=== PATIENT | female | born 1950 | race Caucasian/White ===

== ENCOUNTER 2016-07-04 13:03 | Emergency (ER) | payer OTHER ==
[2016-07-04 13:15] VITALS: TEMP 98.7; BMI 37.0
--- NOTE | 2016-07-04 15:36 | PDOC ---
History of Present Illness <Baron Miles - Last Filed: 07/04/16 18:42> - History of Present Illness Initial Comments: 07/04/16 16:21 The patient is a 65 year old female with a past medical hx of anemia, asthma, cervical cancer with lung mets, CAD, COPD, IDDM, Left DVT 6 years ago who presents to the ED complaining of back pain and rib pain for 1 week. The patient reports she has pain with twisting motions. She reports her pain is progressively worsening. The patient is also complaining of a productive cough. The patient denies any chest pain, SOB, fever, chills The patient denies any nausea, vomiting, diarrhea, constipation <Janina Benjamin - Last Filed: 07/04/16 18:59> - General Chief Complaint: Lightheaded Stated Complaint: SOB, DIZZINESS Time Seen by Provider: 07/04/16 15:35 Past History - Past Medical History Anemia: Yes Asthma: Yes Cancer: Yes (cervical, lung ca, S/P CHEMO, RADIATION) Cardiac Disorders: Yes (CAD.) CVA: No COPD: Yes CHF: No Dementia: No Diabetes: Yes GI Disorders: No Disorders: No HTN: Yes Hypercholesterolemia: Yes Liver Disease: No Suicide Attempt (Hx): No Seizures: No Thyroid Disease: Yes - Surgical History Abdominal Surgery: Yes (UMBILICAL hernia repair) Appendectomy: No Cardiac Surgery: Yes (LLE Bypass) Cholecystectomy: Yes Lung Surgery: No Neurologic Surgery: No Orthopedic Surgery: Yes (amputation rt 3rd and 4th toes) - Family Disease History Family Disease History: Diabetes: Mother, Heart Disease: Father - Immunization History Td Vaccination: Yes TDAP Vaccination: Yes Immunization Up to Date: Yes - Psycho/Social/Smoking Cessation Hx Anxiety: Yes Suicidal Ideation: No Smoking Status: No Smoking History: Never smoked Years of Tobacco Use: 0 Have you smoked in the past 12 months: No Number of Cigarettes Smoked Daily: 0 Cigars Per Day: 0 Hx Alcohol Use: No Drug/Substance Use Hx: No Substance Use Type: None Hx Substance Use Treatment: No <Baron Miles - Last Filed: 07/04/16 18:42> <Janina Benjamin - Last Filed: 07/04/16 18:59> - Past Medical History Allergies/Adverse Reactions: Allergies Allergy/AdvReac Type Severity Reaction Status Date / Time Penicillins Allergy Unknown Hives Verified 03/22/17 13:15 Home Medications: Ambulatory Orders Atorvastatin Calcium 10 mg PO HS 05/01/16 Cholecalciferol (Vitamin D3) [Vitamin D -] 50,000 unit PO WEEKLY 05/01/16 Clindamycin [Cleocin -] 300 mg PO TID 05/01/16 Enoxaparin Sodium 80 mg SQ BID 05/01/16 Exemestane [Aromasin -] 25 mg PO DAILY 05/01/16 Furosemide 20 mg PO DAILY 05/01/16 Insulin Glargine,Hum.rec.anlog [Lantus (10mL VIAL) -] 30 units SQ BID 05/01/16 Levothyroxine [Synthroid -] 100 mcg PO DAILY 05/01/16 Megestrol Acetate 40 mg PO DAILY 05/01/16 Melatonin 5 mg PO HS 05/01/16 Montelukast Na [Singulair -] 10 mg PO HS 05/01/16 Ondansetron [Zofran -] 4 mg PO BID PRN 05/01/16 Ranitidine HCl 300 mg PO DAILY 05/01/16 Sertraline HCl 50 mg PO DAILY 05/01/16 Oxycodone HCl PRN 05/02/16 Xanax PO TID 05/02/16 Clindamycin [Cleocin -] 300 mg PO Q6HPO #28 capsule 05/09/16 Oxycodone HCl [Roxicodone -] 10 mg PO Q6H PRN #0 tablet MDD 4 05/09/16 Prednisone [Deltasone -] 10 mg PO DAILY #10 tablet 05/09/16 Review of Systems - Review of Systems Able to Perform ROS?: Yes Comments:: 07/04/16 16:21 GENERAL/CONSTITUTIONAL: No fever or chills. No weakness. HEAD, EYES, EARS, NOSE AND THROAT: No change in vision. No ear pain or discharge. No sore throat. CARDIOVASCULAR: No chest pain or shortness of breath. RESPIRATORY: +Cough. No wheezing, or hemoptysis. GASTROINTESTINAL: No nausea, vomiting, diarrhea or constipation. GENITOURINARY: No dysuria, frequency, or change in urination. MUSCULOSKELETAL: +Back pain, rib pain. No joint or muscle swelling. No neck pain. SKIN: No rash NEUROLOGIC: No headache, vertigo, loss of consciousness, or change in strength/ sensation. ENDOCRINE: No increased thirst. No abnormal weight change. HEMATOLOGIC/LYMPHATIC: No anemia, easy bleeding, or history of blood clots. ALLERGIC/IMMUNOLOGIC: No hives or skin allergy. <Janina Benjamin - Last Filed: 07/04/16 18:59> *Physical Exam - Vital Signs Last Vital Signs Temp Pulse Resp BP Pulse Ox 98.7 F 89 20 141/69 98 07/04/16 13:11 07/04/16 13:11 07/04/16 13:11 07/04/16 13:11 07/04/16 13:11 <Baron Miles - Last Filed: 07/04/16 18:42> - Vital Signs Last Vital Signs Temp Pulse Resp BP Pulse Ox 98.7 F 89 20 141/69 98 07/04/16 13:11 07/04/16 13:11 07/04/16 13:11 07/04/16 13:11 07/04/16 13:11 - Physical Exam Comments: 07/04/16 16:22 GENERAL: Awake, alert, and fully oriented, in no acute distress HEAD: No signs of trauma EYES: PERRLA, EOMI, sclera anicteric, conjunctiva clear ENT: Auricles normal inspection, hearing grossly normal, nares patent, oropharynx clear without exudates. Moist mucosa NECK: Normal ROM, supple, no lymphadenopathy, JVD, or masses LUNGS: +Wheezing. No crackles HEART: Regular rate and rhythm, normal S1 and S2, no murmurs, rubs or gallops ABDOMEN: +Distended. Soft, nontender, normoactive bowel sounds. No guarding, no rebound. No masses EXTREMITIES:No cellulitis to the lower extremities. Normal range of motion, no edema. No clubbing or cyanosis. No cords, erythema, or tenderness MUSCULOSKELETAL: +Ttp to the left ribs, ttp to the lumbosacral spinal region NEUROLOGICAL: Cranial nerves II through XII grossly intact. Normal speech, normal gait SKIN: Warm, Dry, normal turgor, no rashes or lesions noted. <Janina Benjamin - Last Filed: 07/04/16 18:59> ED Treatment Course - LABORATORY CBC & Chemistry Diagram: 07/04/16 17:15 07/04/16 17:15 <Baron Miles - Last Filed: 07/04/16 18:42> - LABORATORY CBC & Chemistry Diagram: 07/04/16 17:15 07/04/16 17:15 <Janina Benjamin - Last Filed: 07/04/16 18:59> Medical Decision Making - Medical Decision Making 07/04/16 18:05 The patient is a 65 year old female with a past medical hx of anemia, asthma, cervical cancer with lung mets, CAD, COPD, IDDM, Left DVT 6 years ago who presents to the ED complaining of back pain and rib pain for 1 week. The plan is to order rib and lumbosacral X-RAY All tests were negative. Patient can be discharged. Discussed plan for discharge with patient who understands and agrees with the plan. All questions answered. <Janina Benjamin - Last Filed: 07/04/16 18:59> *DC/Admit/Observation/Transfer - Discharge Dispostion Admit: No - Attestations Physician Attestion: 07/04/16 15:36 I, Dr. Baron Miles, attest that this document has been prepared under my direction and personally reviewed by me in its entirety. I further attest, that it accurately reflects all work, treatment, procedures and medical decision -making performed by me. <Baron Miles - Last Filed: 07/04/16 18:42> - Attestations Scribe Attestion: 07/04/16 16:21 Documentation prepared by Janina Benjamin, acting as medical physics teacher for Baron Miles MD/. <Janina Benjamin - Last Filed: 07/04/16 18:59> Diagnosis at time of Disposition: Metastatic disease Chronic pain Qualifiers: Chronic pain type: due to neoplasm Qualified Code(s): G89.3 - Neoplasm related pain (acute) (chronic) - Discharge Dispostion Disposition: HOME Condition at time of disposition: Improved - Referrals Referrals: Zahida Bran MD [Primary Care Provider] - - Patient Instructions Printed Discharge Instructions: DI for Chronic Pain -- Adult Additional Instructions: Mrs Mendieta- All of your tests look good. Continue with all of your doctor appointments- take all of your medicines. Return to us if problems. Best- Dr. Baron Miles
[2016-07-04] MEDS ORDERED: LORazepam 1 MG TABLET PO ONE (16:22)
[2016-07-04] MEDS ORDERED: oxyCODONE HCL 5 MG TABLET PO ONE (16:22)
[2016-07-04] MEDS ORDERED: LORazepam 0.5 MG TABLET ONE (16:54)
[2016-07-04] MEDS ORDERED: oxyCODONE HCL 5 MG TABLET ONE (16:55)
[2016-07-04 17:27] LABS: MCH 25.9 pg (25.7-33.7); MEAN CELL VOLUME 78.3 fl (80-96); MEAN PLT VOLUME 9.1 fl (7.5-11.1); PLATELET COUNT 244 K/MM3 (134-434); RDW 16.8 % (11.6-15.6); WHITE BLOOD COUNT 11.6 K/mm3 (4.0-10.0)
[2016-07-04 17:42] LABS: URINE APPEARANCE CLEAR; URINE BILIRUBIN NEGATIVE (NEGATIVE); URINE BLOOD NEGATIVE (NEGATIVE); URINE COLOR STRAW; URINE GLUCOSE (UA) 3+ (NEGATIVE); URINE KETONE NEGATIVE (NEGATIVE); URINE LEUK ESTERASE NEGATIVE (NEGATIVE); URINE NITRITE NEGATIVE (NEGATIVE); URINE PROTEIN NEGATIVE (NEGATIVE); URINE UROBILINOGEN NEGATIVE E.U./dl (0.2-1.0)
[2016-07-04 17:43] LABS: INR 1.06 (0.82-1.09); PROTHROMBIN TIME (PATIENT) 11.7 SEC (9.98-11.88)
[2016-07-04 18:11] LABS: ALBUMIN 3.6 g/dl (3.4-5.0); BILIRUBIN,TOTAL 0.4 mg/dL (0.2-1.0); CALCIUM 9.4 mg/dL (8.5-10.1); CREATININE 1.1 mg/dL (0.55-1.02); TOT PROT 7.3 g/dl (6.4-8.2)
[2016-07-04 19:57] LABS: PLATELET ESTIMATE ADEQUATE (NORMAL)
[2016-07-04 19:58] LABS: METAMYELOCYTE 1 % (0-2)
[2016-07-04 21:13] VITALS: BP 139/80; PULSE 94
== END 2016-07-04 21:13 | disposition home or self-care (01) ==
LOC: JER 13:03
DX: G89.3 Neoplasm related pain (acute) (chronic) (principal); Z85.41 Personal history of malignant neoplasm of cervix uteri; Q24.5 Malformation of coronary vessels; I25.10 Atherosclerotic heart disease of native coronary artery without angina pectoris; E11.9 Type 2 diabetes mellitus without complications; Z86.718 Personal history of other venous thrombosis and embolism
CPT/HCPCS: 36415; 71101-TC; 72100-TC; 80053; 81003; 82330; 85025; 85610; 99282-25

== ENCOUNTER 2016-08-30 10:25 | Inpatient (IN) | payer OTHER ==
[2016-08-30 10:42] VITALS: BMI 37.0
--- NOTE | 2016-08-30 11:34 | PDOC ---
*Physical Exam - Vital Signs Last Vital Signs Temp Pulse Resp BP Pulse Ox 98.1 F 89 22 152/72 100 08/30/16 10:37 08/30/16 10:37 08/30/16 10:37 08/30/16 10:37 08/30/16 10:37 - Physical Exam Comments: 08/30/16 11:34 Pt seen by the Advanced Practice Provider under my direct supervision Pt interviewed and examined Ancillary studies reviewed I agree with plan as outlined by the Advanced Practice Provider ED Treatment Course - LABORATORY CBC & Chemistry Diagram: 08/30/16 11:32 08/30/16 11:32 - RADIOLOGY Radiology Studies Ordered: Category Date Time Status CHEST X-RAY PORTABLE* [RAD] Stat Radiology 08/30/16 11:23 Ordered *DC/Admit/Observation/Transfer Diagnosis at time of Disposition: Chest pain
[2016-08-30] MEDS ORDERED: ASPIRIN 81 MG CHEWABLE TABLETS PO ONE (11:35)
--- NOTE | 2016-08-30 11:39 | PDOC ---
History of Present Illness - General Chief Complaint: Chest Pain Stated Complaint: CHEST PAIN, LT SIDE NUMBNESS Time Seen by Provider: 08/30/16 11:23 History Source: Patient Exam Limitations: No Limitations - History of Present Illness Initial Comments: 08/30/16 11:37 66-year-old female presents to the ED with complaints of worsening cough, congestion, now with left-sided chest pain that she describes an aching dull sensation that radiates to her left neck and left upper arm. Patient also complaining of lower extremity edema and epigastric cramping. Patient denies fever, chills, productive cough, throat pain, headache, dizziness, nausea, diarrhea, change in urine output, or rash. 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 Patient also is on oxygen 3 L nasal cannula at home. Presenting Symptoms: Abdominal Pain, Chest Pain, Short of Breath Timing/Duration: reports: constant Severity/Quality: reports: moderate, aching Location: reports: substernal Chest Pain Radiation: reports: no radiation Activities at Onset: reports: none Prior Chest Pain/Cardiac Workup: reports: Echocardiography Nitro Today/Relief: Yes: no nitro taken today Aspirin Received prior to arrival (Core Measure): Yes: no aspirin today, 81 mg x 2 (given in the ED) Associated Symptoms: Yes: Abdominal pain, Cough, Chest Pain/pressure Past History - Past Medical History Allergies/Adverse Reactions: Allergies Allergy/AdvReac Type Severity Reaction Status Date / Time Penicillins Allergy Unknown Hives Verified 08/30/16 10:37 Home Medications: Ambulatory Orders Albuterol Sulfate Inhaler - [Ventolin Hfa Inhaler -] 2 inh PO Q6H 08/30/16 Aspirin [ASA -] 81 mg PO DAILY 08/30/16 Cholecalciferol (Vitamin D3) [Vitamin D3 -] 1,000 unit PO Q7D 08/30/16 Furosemide [Lasix] 20 mg PO DAILY 08/30/16 Insulin Lispro [Humalog] 15 unit SQ TID 08/30/16 Levothyroxine [Synthroid -] 100 mcg PO DAILY 08/30/16 Losartan Potassium 50 mg PO BID 08/30/16 Megestrol Acetate 80 mg PO BID 08/30/16 Montelukast Na [Singulair -] 10 mg PO HS 08/30/16 Ondansetron [Zofran -] 4 mg PO BID PRN 08/30/16 Oxycodone HCl 15 mg PO TID PRN 08/30/16 Prednisone 10 mg PO DAILY 08/30/16 Tamoxifen Citrate 20 mg PO BID 08/30/16 Anemia: Yes Asthma: Yes Cancer: Yes (cervical, lung ca, S/P CHEMO, RADIATION) Cardiac Disorders: Yes (CAD.) CVA: No COPD: Yes CHF: No Dementia: No Diabetes: Yes GI Disorders: No Disorders: No HTN: Yes Hypercholesterolemia: Yes Liver Disease: No Suicide Attempt (Hx): No Seizures: No Thyroid Disease: Yes - Surgical History Abdominal Surgery: Yes (UMBILICAL hernia repair) Appendectomy: No Cardiac Surgery: Yes (LLE Bypass) Cholecystectomy: Yes Lung Surgery: No Neurologic Surgery: No Orthopedic Surgery: Yes (amputation rt 3rd and 4th toes) - Family Disease History Family Disease History: Diabetes: Mother, Heart Disease: Father - Immunization History Td Vaccination: Yes TDAP Vaccination: Yes Immunization Up to Date: Yes - Psycho/Social/Smoking Cessation Hx Anxiety: Yes Suicidal Ideation: No Smoking Status: No Smoking History: Never smoked Years of Tobacco Use: 0 Have you smoked in the past 12 months: No Number of Cigarettes Smoked Daily: 0 Cigars Per Day: 0 Hx Alcohol Use: No Drug/Substance Use Hx: No Substance Use Type: None Hx Substance Use Treatment: No Patient Lives Alone: No Review of Systems - Review of Systems Able to Perform ROS?: Yes Constitutional: No: Symptoms Reported HEENTM: No: Symptoms Reported Respiratory: Yes: Cough. No: Shortness of Breath Cardiac (ROS): Yes: Chest Pain ABD/GI: Yes: Indigestion, Abdominal cramping (epigastric) Musculoskeletal: No: Back Pain Integumentary: No: Symptoms Reported Neurological: No: Symptoms reported Hematologic/Lymphatic: No: Symptoms Reported *Physical Exam - Vital Signs Last Vital Signs Temp Pulse Resp BP Pulse Ox 98.1 F 89 22 152/72 100 08/30/16 10:37 08/30/16 10:37 08/30/16 10:37 08/30/16 10:37 08/30/16 10:37 - Physical Exam General Appearance: Yes: Nourished, Appropriately Dressed. No: Apparent Distress HEENT: positive: EOMI, MARLY, TMs Normal, Pharynx Normal. negative: Pale Conjunctivae Neck: positive: Supple Respiratory/Chest: positive: Lungs Clear, Normal Breath Sounds. negative: Respiratory Distress, Accessory Muscle Use Cardiovascular: positive: Regular Rhythm, Regular Rate. negative: Murmur Gastrointestinal/Abdominal: positive: Soft. negative: Tenderness Musculoskeletal: negative: CVA Tenderness Extremity: positive: Normal Capillary Refill, Pedal Edema (2+ pitting bilateral) . negative: Calf Tenderness Integumentary: positive: Dry, Warm, Pale Neurologic: positive: Normal Mood/Affect, Motor Strength 5/5 (ambulatory) Heart Score/ECG Review - History History: Moderately suspicious - Electrocardiogram EKG: Normal - Age Age: >/= 65 - Risk Factors Risk Factors Heart Score: Yes Hx Hypercholesterolemia, Yes Hx Hypertension, Yes Hx Diabetes, Yes Positive family hx of cardiac disease, Yes Hx Obesity Based on the list above the patient has:: >/=3 risk factors or Hx atherosclerotic disease - Troponin Troponin: </= normal limit - Score Heart Score - Total: 5 - ECG Intrepretation Rhythm: Regular Rhythm (Rate 89. Right bundle branch block. Unchanged from previous) ED Treatment Course - LABORATORY CBC & Chemistry Diagram: 08/30/16 11:32 08/30/16 11:32 - ADDITIONAL ORDERS Additional order review: Laboratory Results 08/30/16 08/30/16 11:32 11:32 INR 0.96 Sodium 138 Potassium 4.0 D Chloride 99 Carbon Dioxide 28 Anion Gap 11 BUN 16 Creatinine 0.9 Creat Clearance w eGFR > 60 Random Glucose 140 H D Calcium 8.7 Magnesium 1.7 L Total Bilirubin 0.2 D AST 28 D ALT 34 Alkaline Phosphatase 88 Creatine Kinase 148 Troponin I < 0.02 Total Protein 7.1 Albumin 3.4 08/30/16 11:32 RBC 4.54 MCV 78.4 L MCHC 32.4 RDW 16.2 H MPV 8.5 Neutrophils % Y Lymphocytes % Y - Medications Given in the ED: ED Medications Discontinued Medications Generic Name Dose Route Start Last Admin Trade Name Freq PRN Reason Stop Dose Admin Aspirin 162 mg 08/30/16 11:35 08/30/16 11:49 Asa - PO 08/30/16 11:36 162 mg ONCE ONE Administration Lorazepam 0.5 mg 08/30/16 12:44 08/30/16 13:31 Ativan Injection - IVPUSH 08/30/16 12:45 0.5 mg ONCE ONE Administration Magnesium Sulfate 1 gm 08/30/16 12:43 08/30/16 13:31 Magnesium Sulfate IVPB 08/30/16 12:44 1 gm ONCE ONE Administration Medical Decision Making - Medical Decision Making 08/30/16 11:40 Patient complains of worsening cough, congestion, left-sided chest pain, and lower extremity edema. Patient has extensive history and is concerning for ACS versus pneumonia versus muscle skeletal pain. Patient ordered for cardiac workup. 08/30/16 11:45 Patient currently on Lovenox. 08/30/16 12:43 chest x-ray shows ill-defined masslike opacities noted in both lungs. This is an increase in size in comparison to May 01. There is otherwise no pneumothorax or pleural effusion seen. Laboratory Tests 08/30/16 08/30/16 08/30/16 11:32 11:32 11:32 WBC 12.8 H Hgb 11.5 Hct 35.6 Plt Count 216 INR Pending Sodium 138 Potassium 4.0 D Chloride 99 Carbon Dioxide 28 Anion Gap 11 BUN 16 Creatinine 0.9 Creat Clearance w eGFR > 60 Random Glucose 140 H D Calcium 8.7 Magnesium 1.7 L AST 28 D ALT 34 Creatine Kinase 148 Troponin I < 0.02 08/30/16 14:51 Due to patient's extensive history and heart score of 5. Patient will be admitted to telemetry observation under Dr. Fletcher since patient's PCP does not admit here. Consultation placed for Dr. Graham in the computer. *DC/Admit/Observation/Transfer Diagnosis at time of Disposition: Chest pain Qualifiers: Chest pain type: unspecified Qualified Code(s): R07.9 - Chest pain, unspecified - Discharge Dispostion Admit: Yes
[2016-08-30] MEDS ORDERED: ASPIRIN 81 MG CHEWABLE TABLETS ONE (11:44)
[2016-08-30 11:55] LABS: MCH 25.4 pg (25.7-33.7); MCHC 32.4 g/dl (32.0-36.0); MEAN CELL VOLUME 78.4 fl (80-96); MEAN PLT VOLUME 8.5 fl (7.5-11.1); PLATELET COUNT 216 K/MM3 (134-434); RDW 16.2 % (11.6-15.6); WHITE BLOOD COUNT 12.8 K/mm3 (4.0-10.0)
[2016-08-30 12:19] LABS: ALBUMIN 3.4 g/dl (3.4-5.0); ANION GAP 11 (8-16); BILIRUBIN,TOTAL 0.2 mg/dL (0.2-1.0); CALCIUM 8.7 mg/dL (8.5-10.1); CO2 28 mmol/L (21-32); CREATININE 0.9 mg/dL (0.55-1.02); GLUCOSE,RANDOM 140 mg/dL (74-106); SGPT/ALT 34 U/L (12-78); TOT PROT 7.1 g/dl (6.4-8.2)
[2016-08-30 12:22] LABS: ALK PHOS 88 U/L (45-117); TROPONIN I < 0.02 ng/ml (0.00-0.05)
[2016-08-30 12:23] LABS: MAGNESIUM 1.7 mg/dL (1.8-2.4); SGOT/AST 28 U/L (15-37)
[2016-08-30 12:40] LABS: INR 0.96 (0.82-1.09); PROTHROMBIN TIME (PATIENT) 10.5 SEC (9.98-11.88)
[2016-08-30] MEDS ORDERED: MAGNESIUM SULF 50% (8.12 MEQ/2 ML-1 GM VIAL) IVPB ONE (12:43)
[2016-08-30] MEDS ORDERED: LORAZEPAM CARPU-JECT 2 MG/ML DISP.SYRIN IVPUSH ONE (12:44)
[2016-08-30] MEDS ORDERED: LORAZEPAM CARPU-JECT 2 MG/ML DISP.SYRIN ONE (13:18)
[2016-08-30] MEDS ORDERED: MAGNESIUM SULF 50% (8.12 MEQ/2 ML-1 GM VIAL) ONE (13:19)
--- NOTE | 2016-08-30 13:46 | EKG ---
Test Reason : Blood Pressure : / mmHG Vent. Rate : 089 BPM Atrial Rate : 089 BPM P-R Int : 114 ms QRS Dur : 132 ms QT Int : 398 ms P-R-T Axes : 054 -31 036 degrees QTc Int : 484 ms NORMAL SINUS RHYTHM LEFT AXIS DEVIATION RIGHT BUNDLE BRANCH BLOCK ABNORMAL ECG WHEN COMPARED WITH ECG OF 01-MAY-2016 16:35, NO SIGNIFICANT CHANGE WAS FOUND Confirmed by BENJY BAUTISTA MD ([id number]) on 08/30/2016 1:46:14 PM Referred By: Confirmed By:BENJY BAUTISTA MD
--- NOTE | 2016-08-30 18:50 | CON.CARD ---
Consult Consult Specialty:: cardiology Reason for Consultation:: atypical chest pain; dyspnea - History of Present Illness History of Present Illness: 66-year-old female (sang Neal) presents to the ED with complaints of worsening cough, congestion, now with left-sided chest pain that she describes an aching dull sensation that radiates to her left neck and left upper arm (on further questioning, pt says the chest pain only began after she had been coughing for several days, and is related to forceful coughing; the cough and chest pain have lessened over the past 48 hours). Patient also complaining of lower extremity edema and epigastric cramping. Patient denies fever, chills, productive cough, throat pain, headache, dizziness, nausea, diarrhea, change in urine output, or rash. Patient history of asthma, PE, cervical CA with metastases to lungs, diabetes, anxiety, hyperlipidemia, hypertension, hypothyroidism, obesity. Patient also is on oxygen 3 L nasal cannula at home ( denies hx cigarettes, but grew up with her mother smoking in the house). Presenting Symptoms: Abdominal Pain, Chest Pain, Short of Breath Timing/Duration: reports: constant Severity/Quality: reports: moderate, aching Location: reports: substernal Chest Pain Radiation: reports: no radiation Activities at Onset: reports: none Prior Chest Pain/Cardiac Workup: reports: Echocardiography Nitro Today/Relief: Yes: no nitro taken today Aspirin Received prior to arrival (Core Measure): Yes: no aspirin today, 81 mg x 2 (given in the ED) Associated Symptoms: Yes: Abdominal pain, Cough, Chest Pain/pressure - History Source History Provided By: Patient, Medical Record Limitations to Obtaining History: No Limitations - Past Medical History [employer] RE[employer]ER: Yes: Peripheral Neuropathy Cardio/Vascular: Yes: CAD, Deep Vein Thrombosis, HTN, Hyperlipdemia, Murmur, Other (PVD) Pulmonary: Yes: Asthma, COPD Gastrointestinal: Yes: Gastritis Renal/: Yes: Cancer (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) ...LMP: 11/21/13 ...: No Infectious Disease: Yes: Other (hand infection in 03/2014 with group a strep bacteremia, group b strep bacteremia 08/2014) Psych: Yes: Anxiety, Depression Musculoskeletal: Yes: Other (chronic pain) Endocrine: Yes: Diabetes Mellitus Additional Medical History: neuropathy - Past Surgical History Past Surgical History: Yes: Amputation (right third and fourth toes), Bypass ( left leg), Cholecystectomy, Hernia Repair, Hysterectomy - Alcohol/Substance Use Hx Alcohol Use: No History of Substance Use: reports: None - Smoking History Smoking history: Never smoked Have you smoked in the past 12 months: No Aproximately how many cigarettes per day: 0 - Social History Usual Living Arrangement: With Spouse ADL: Independent History of Recent Travel: No Home Medications - Allergies Allergies/Adverse Reactions: Allergies Allergy/AdvReac Type Severity Reaction Status Date / Time Penicillins Allergy Unknown Hives Verified 08/30/16 10:37 - Home Medications Home Medications: Ambulatory Orders Albuterol Sulfate Inhaler - [Ventolin Hfa Inhaler -] 2 inh PO Q6H 08/30/16 Alprazolam [Xanax] 0.25 mg PO Q6H 08/30/16 Aspirin [ASA -] 81 mg PO DAILY 08/30/16 Cholecalciferol (Vitamin D3) [Vitamin D3 -] 1,000 unit PO Q7D 08/30/16 Furosemide [Lasix] 20 mg PO DAILY 08/30/16 Insulin Lispro [Humalog] 15 unit SQ TID 08/30/16 Levothyroxine [Synthroid -] 100 mcg PO DAILY 08/30/16 Losartan Potassium 50 mg PO BID 08/30/16 Megestrol Acetate 80 mg PO BID 08/30/16 Montelukast Na [Singulair -] 10 mg PO HS 08/30/16 Ondansetron [Zofran -] 4 mg PO BID PRN 08/30/16 Oxycodone HCl 15 mg PO TID PRN 08/30/16 Prednisone 10 mg PO DAILY 08/30/16 Tamoxifen Citrate 20 mg PO BID 08/30/16 Family Disease History - Family Disease History Family Disease History: Diabetes: Mother (CVA; [place] in her 70s), Heart Disease: Mother, Other: Mother Review of Systems - Review of Systems Constitutional: reports: Weakness Eyes: reports: No Symptoms HENT: reports: No Symptoms Neck: reports: No Symptoms Cardiovascular: reports: Chest Pain Respiratory: reports: SOB on Exertion Gastrointestinal: reports: No Symptoms Genitourinary: reports: No Symptoms Breasts: reports: No Symptoms Reported Musculoskeletal: reports: Muscle Weakness Neurological: reports: Weakness Endocrine: reports: No Symptoms Hematology/Lymphatic: reports: No Symptoms Psychiatric: reports: Anxiety - Risk Factors Known Risk Factors: Yes: Age, Hypercholesterolemia, Hypertension, Physical Inactivity, Other (cervical cancer with metastases to lungs) Vital Signs: Vital Signs Temperature 98.8 F 08/30/16 18:22 Pulse Rate 91 H 08/30/16 18:22 Respiratory Rate 20 08/30/16 18:22 Blood Pressure 129/67 08/30/16 18:22 O2 Sat by Pulse Oximetry (%) 100 08/30/16 18:22 Constitutional: Yes: Calm Eyes: Yes: WNL HENT: Yes: WNL Neck: Yes: WNL Respiratory: Yes: Diminished Gastrointestinal: Yes: Soft Renal/: No: Anuria JVD: No Carotid Bruit: No PMI: Non-Displaced Heart Sounds: Yes: S1, Split S2 Murmur: Yes: Systolic Murmur, Grade 1 Musculoskeletal: Yes: Muscle Weakness Extremities: Yes: WNL Edema: No Peripheral Pulses WNL: Yes Neurological: Yes: Alert, Oriented Psychiatric: Yes: WNL - Other Data Labs, Other Data: INR, PTT INR 0.96 (0.82-1.09) 08/30/16 11:32 Abnormal Lab Results 08/31/16 08/31/16 05:35 05:35 WBC 10.7 H MCV 78.5 L RDW 16.3 H Neutrophils % 88.2 H D Monocytes % 1.5 L Random Glucose 278 H D Albumin 3.1 L Echo: Image Reviewed (NSR; LAD; RBBB) Imaging - Results Chest X-ray: Image Reviewed (lung masses) EKG: Image Reviewed (NSR; LAD; RBBB) Problem List - Problems (1) Pulmonary emboli Code(s): I26.99 - OTHER PULMONARY EMBOLISM WITHOUT ACUTE COR PULMONALE (2) Cervical cancer Code(s): C53.9 - MALIGNANT NEOPLASM OF CERVIX UTERI, UNSPECIFIED (3) Primary cervical cancer with metastasis to other site Assessment/Plan: f/u ECHO (limited study 03/2016: unable to assess valves; LVEF was normal, and no pericardial effusion was noted). Code(s): C53.9 - MALIGNANT NEOPLASM OF CERVIX UTERI, UNSPECIFIED C79.9 - SECONDARY MALIGNANT NEOPLASM OF UNSPECIFIED SITE (4) Hypertension Assessment/Plan: On ARB. On furosemide (avoid dehydration). Code(s): I10 - ESSENTIAL (PRIMARY) HYPERTENSION Qualifiers: Hypertension type: essential hypertension Qualified Code(s): I10 - Essential (primary) hypertension (5) Hypothyroidism Assessment/Plan: on synthroid; TSH WNL. Code(s): E03.9 - HYPOTHYROIDISM, UNSPECIFIED Qualifiers: Hypothyroidism type: unspecified Qualified Code(s): E03.9 - Hypothyroidism, unspecified (6) Diabetes Code(s): E11.9 - TYPE 2 DIABETES MELLITUS WITHOUT COMPLICATIONS Qualifiers: Diabetes mellitus type: type 2 Diabetes mellitus complication status: without complication (7) Atypical chest pain Assessment/Plan: Pt says the chest pain only occurs after bout of prolonged coughing. TNI < 0.02; f/u 2nd draw. TSH WNL. F/u ECHO. Given pt's advanced cancer, would treat conservatively. Code(s): R07.89 - OTHER CHEST PAIN
[2016-08-30] MEDS ORDERED: ALBUTEROL SO4 6.7 GM HFA INHALER IH PRN (20:22)
[2016-08-30] MEDS: ALPRAZolam 0.25 MG TABLET PO PRN (20:44)
[2016-08-30] MEDS: oxyCODONE HCL 5 MG TABLET PO PRN (20:44)
[2016-08-30] MEDS: MONTELUKAST NA 10 MG TABLET PO SCH (21:59)
[2016-08-30] MEDS: LOSARTAN POTASSIUM 50 MG TABLET (FP) PO SCH (21:59)
[2016-08-30] MEDS: MEGESTROL ACETATE 40 MG TABLET PO SCH (21:59)
[2016-08-30] MEDS: TAMOXIFEN CITRATE 10 MG TABLET PO SCH (22:00)
[2016-08-30 22:25] LABS: TROPONIN I < 0.02 ng/ml (0.00-0.05)
--- NOTE | 2016-08-31 01:34 | HP ---
Admitting History and Physical - Admission History of Present Illness: 66-year-old female presents to the ED with complaints of worsening cough, congestion, now with left-sided chest pain that she describes an aching dull sensation that radiates to her left neck and left upper arm. Patient also complaining of lower extremity edema and epigastric cramping. Patient denies fever, chills, productive cough, throat pain, headache, dizziness, nausea, diarrhea, change in urine output, or rash. 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 Patient also is on oxygen 3 L nasal cannula at home. History Source: Patient, Medical Record - Past Medical History FAMILY HEALTH NURSE PRACTITIONER: Yes: Peripheral Neuropathy Cardiovascular: Yes: CAD, Deep Vein Thrombosis, HTN, Hyperlipdemia, Murmur, Other (PVD) Pulmonary: Yes: Asthma, COPD Gastrointestinal: Yes: Gastritis Renal/: Yes: Cancer (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) ...LMP: 11/21/13 ...: No Heme/Onc: Yes: Cancer (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) Infectious Disease: Yes: Other (hand infection in 03/2014 with group a strep bacteremia, group b strep bacteremia 08/2014) Psych: Yes: Anxiety, Depression Musculoskeletal: Yes: Other (chronic pain) Endocrine: Yes: Diabetes Mellitus - Past Surgical History Past Surgical History: Yes: Amputation (right third and fourth toes), Bypass ( left leg), Cholecystectomy, Hernia Repair, Hysterectomy - Smoking History Smoking history: Never smoked Have you smoked in the past 12 months: No Aproximately how many cigarettes per day: 0 - Alcohol/Substance Use Hx Alcohol Use: No History of Substance Use: reports: None - Social History ADL: Independent History of Recent Travel: No Home Medications - Allergies Allergies/Adverse Reactions: Allergies Allergy/AdvReac Type Severity Reaction Status Date / Time Penicillins Allergy Unknown Hives Verified 08/30/16 10:37 - Home Medications Home Medications: Ambulatory Orders Albuterol Sulfate Inhaler - [Ventolin HFA Inhaler -] 2 inh PO Q6H 08/30/16 Alprazolam [Xanax] 0.25 mg PO Q6H 08/30/16 Aspirin [ASA -] 81 mg PO DAILY 08/30/16 Cholecalciferol (Vitamin D3) [Vitamin D -] 1,000 unit PO Q7D 08/30/16 Furosemide [Lasix] 20 mg PO DAILY 08/30/16 Insulin Lispro [Humalog] 15 unit SQ TID 08/30/16 Levothyroxine [Synthroid -] 100 mcg PO DAILY 08/30/16 Losartan Potassium 50 mg PO BID 08/30/16 Megestrol Acetate 80 mg PO BID 08/30/16 Montelukast Na [Singulair -] 10 mg PO HS 08/30/16 Ondansetron [Zofran -] 4 mg PO BID PRN 08/30/16 Oxycodone HCl 15 mg PO TID PRN 08/30/16 Prednisone 10 mg PO DAILY 08/30/16 Tamoxifen Citrate 20 mg PO BID 08/30/16 Insulin (Levemir) [Levemir Vial] 35 units SQ BID@0700,2200 ml 09/10/16 Prednisone [Deltasone -] 40 mg PO DAILY #10 tablet 09/10/16 Family Disease History - Family Disease History Family History: Unable to Obtain Family Disease History: Diabetes: Mother (CVA), Heart Disease: Mother, Other: Mother Review of Systems - Review of Systems Constitutional: reports: Lethargy Eyes: reports: No Symptoms HENT: reports: No Symptoms Neck: reports: No Symptoms Cardiovascular: reports: Chest Pain, Shortness of Breath Respiratory: reports: Cough, SOB Gastrointestinal: reports: No Symptoms Physical Examination Vital Signs: Vital Signs Temperature 100 F H 08/30/16 22:00 Pulse Rate 96 H 08/30/16 23:40 Respiratory Rate 20 08/30/16 23:40 Blood Pressure 159/79 08/30/16 22:00 O2 Sat by Pulse Oximetry (%) 100 08/30/16 21:00 Constitutional: Yes: Well Nourished Eyes: Yes: WNL HENT: Yes: WNL Neck: Yes: WNL Cardiovascular: Yes: WNL, Regular Rate and Rhythm Respiratory: Yes: Wheezes Gastrointestinal: Yes: WNL, Normal Bowel Sounds, Soft, Abdomen, Obese Edema: No Neurological: Yes: WNL, Alert, Oriented ...Motor Strength: WNL Assessment/Plan 1. Exacerbation COPD Cont IV steroids/antibxs Cont nebulizers Pulmonary consult 2. Metastatic breast cancer 3. HTN 4. Diabetes
[2016-08-31] MEDS: methylPREDNISolone NA SUCC 40 MG/1 ML VIAL IVPB SCH ×3 (02:10→17:04)
[2016-08-31] MEDS: LEVOFLOXACIN 500 MG IVPB 100 ML IVPB SCH ×2 (02:14→12:24)
[2016-08-31] MEDS: ALPRAZolam 0.25 MG TABLET PO PRN ×4 (04:28→23:30)
[2016-08-31] MEDS: oxyCODONE HCL 5 MG TABLET PO PRN ×3 (04:29→18:55)
[2016-08-31] MEDS: LEVOTHYROXINE NA 100 MCG TABLET (FP) PO SCH (06:18)
[2016-08-31 07:03] LABS: BASOPHIL 0.3 % (0-2.0); EOSINOPHIL 0.1 % (0-4.5); MCH 26.1 pg (25.7-33.7); MCHC 33.2 g/dl (32.0-36.0); MEAN CELL VOLUME 78.5 fl (80-96); MEAN PLT VOLUME 8.9 fl (7.5-11.1); NEUTROPHILS 88.2 % (42.8-82.8); PLATELET COUNT 205 K/MM3 (134-434); RDW 16.3 % (11.6-15.6); WHITE BLOOD COUNT 10.7 K/mm3 (4.0-10.0)
[2016-08-31 08:02] LABS: ALBUMIN 3.1 g/dl (3.4-5.0); ALK PHOS 88 U/L (45-117); ANION GAP 10 (8-16); BILIRUBIN,TOTAL 0.3 mg/dL (0.2-1.0); CALCIUM 8.6 mg/dL (8.5-10.1); CO2 26 mmol/L (21-32); CREATININE 0.9 mg/dL (0.55-1.02); GLUCOSE,RANDOM 278 mg/dL (74-106); SGOT/AST 21 U/L (15-37); SGPT/ALT 33 U/L (12-78); THYROID STIMULATING HORMONE 1.38 uIU/ml (0.358-3.74); TOT PROT 6.6 g/dl (6.4-8.2)
[2016-08-31 09:17] LABS: TROPONIN I < 0.02 ng/ml (0.00-0.05)
[2016-08-31] MEDS: ASPIRIN 81 MG CHEWABLE TABLETS PO SCH (09:39)
[2016-08-31] MEDS: LOSARTAN POTASSIUM 50 MG TABLET (FP) PO SCH ×2 (09:39→21:32)
[2016-08-31] MEDS: FUROSEMIDE 20 MG TABLET (FP) PO SCH (09:39)
[2016-08-31] MEDS ORDERED: PT OWN MED DRAWER 7, Y5N ONE ×2 (09:42→21:21)
[2016-08-31] MEDS: TAMOXIFEN CITRATE 10 MG TABLET PO SCH ×2 (09:44→21:31)
[2016-08-31] MEDS: INSULIN (NOVOLOG) ASPART 100 UNITS/ML 10ML VIAL SQ SCH ×3 (09:45→17:04)
[2016-08-31] MEDS: MEGESTROL ACETATE 40 MG TABLET PO SCH (09:45)
[2016-08-31] MEDS ORDERED: predniSONE 10 MG TABLET (UD) PO SCH (10:00)
--- NOTE | 2016-08-31 12:02 | PN ---
Progress Note (short form) - Note Progress Note: PULMONARY CONSULTATION DICTAED 08/31/16 IMP CERVICAL CA WITH LUNG METS CHRONIC HYPOXEMIC RESPIRATORY FAILURE ASTHMA CHEST PAIN SYNDROME URI HYPOTHYROID H/O PE HLD PLAN NASAL O2 INHALED BRONCHODILATORS SOLUMEDROL CARDIOLOGY EVALUATION ANTIBIOTICS CULTURES CARDIAC ENZYMES DR CELAYA Problem List - Problems (1) Acute asthma exacerbation Code(s): J45.901 - UNSPECIFIED ASTHMA WITH (ACUTE) EXACERBATION (2) Chest pain Code(s): R07.9 - CHEST PAIN, UNSPECIFIED Qualifiers: Chest pain type: unspecified Qualified Code(s): R07.9 - Chest pain, unspecified (3) Primary cervical cancer with metastasis to other site Code(s): C53.9 - MALIGNANT NEOPLASM OF CERVIX UTERI, UNSPECIFIED C79.9 - SECONDARY MALIGNANT NEOPLASM OF UNSPECIFIED SITE (4) Pulmonary emboli Code(s): I26.99 - OTHER PULMONARY EMBOLISM WITHOUT ACUTE COR PULMONALE (5) Cervical cancer Code(s): C53.9 - MALIGNANT NEOPLASM OF CERVIX UTERI, UNSPECIFIED (6) Fever Code(s): R50.9 - FEVER, UNSPECIFIED (7) Metastasis to lung Code(s): C78.00 - SECONDARY MALIGNANT NEOPLASM OF UNSPECIFIED LUNG (8) Metastatic disease Code(s): C79.9 - SECONDARY MALIGNANT NEOPLASM OF UNSPECIFIED SITE (9) Steroid dependence Code(s): [id number] - (10) Type 2 diabetes mellitus with hyperosmolarity without nonketotic hyperglycemic-hyperosmolar coma (nkhhc) Code(s): E11.00 - TYPE 2 DIAB W HYPROSM W/O NONKET HYPRGLY-HYPROS COMA ([facility]) (11) Chronic steroid use Code(s): [id number] - (12) Hyperlipidemia Code(s): E78.5 - HYPERLIPIDEMIA, UNSPECIFIED Qualifiers: Hyperlipidemia type: unspecified Qualified Code(s): E78.5 - Hyperlipidemia, unspecified (13) Hypertension Code(s): I10 - ESSENTIAL (PRIMARY) HYPERTENSION Qualifiers: Hypertension type: essential hypertension Qualified Code(s): I10 - Essential (primary) hypertension (14) Hypothyroidism Code(s): E03.9 - HYPOTHYROIDISM, UNSPECIFIED Qualifiers: Hypothyroidism type: unspecified Qualified Code(s): E03.9 - Hypothyroidism, unspecified (15) Chronic hypoxemic respiratory failure Code(s): J96.11 - CHRONIC RESPIRATORY FAILURE WITH HYPOXIA
--- NOTE | 2016-08-31 13:21 | CONSULT ---
Consult - text type - Consultation Consultation Note: 66-year-old female presents to the ED with complaints of worsening cough, congestion, now with left-sided chest pain that she describes an aching dull sensation that radiates to her left neck and left upper arm. Patient also complaining of lower extremity edema and epigastric cramping. Feels better now - Past Medical History HTN hyperlipidemia DM hypothyroid Anxiety Cervical cancer with lung mets COPD Allergies/Adverse Reactions: Allergies Allergy/AdvReac Type Severity Reaction Status Date / Time Penicillins Allergy Unknown Hives Verified 08/30/16 10:37 Home Medications: Ambulatory Orders Albuterol Sulfate Inhaler - [Ventolin Hfa Inhaler -] 2 inh PO Q6H 08/30/16 Aspirin [ASA -] 81 mg PO DAILY 08/30/16 Cholecalciferol (Vitamin D3) [Vitamin D3 -] 1,000 unit PO Q7D 08/30/16 Furosemide [Lasix] 20 mg PO DAILY 08/30/16 Insulin Lispro [Humalog] 15 unit SQ TID 08/30/16 Levothyroxine [Synthroid -] 100 mcg PO DAILY 08/30/16 Losartan Potassium 50 mg PO BID 08/30/16 Megestrol Acetate 80 mg PO BID 08/30/16 Montelukast Na [Singulair -] 10 mg PO HS 08/30/16 Ondansetron [Zofran -] 4 mg PO BID PRN 08/30/16 Oxycodone HCl 15 mg PO TID PRN 08/30/16 Prednisone 10 mg PO DAILY 08/30/16 Tamoxifen Citrate 20 mg PO BID 08/30/16 - Surgical History Abdominal Surgery: Yes (UMBILICAL hernia repair) Cardiac Surgery: Yes (LLE Bypass) Cholecystectomy: Yes Orthopedic Surgery: Yes (amputation rt 3rd and 4th toes) - Family Disease History Family Disease History: Diabetes: Mother, Heart Disease: Father - Psycho/Social/Smoking Cessation Hx Anxiety: Yes Smoking History: Never smoked - Vital Signs Last Vital Signs Temp Pulse Resp BP Pulse Ox 98.1 F 89 22 152/72 100 08/30/16 10:37 08/30/16 10:37 08/30/16 10:37 08/30/16 10:37 08/30/16 10:37 - Physical Exam General Appearance: Yes: Nourished, Appropriately Dressed. No: Apparent Distress HEENT: positive: EOMI, MARLY, TMs Normal, Pharynx Normal. negative: Pale Conjunctivae Neck: positive: Supple Respiratory/Chest: positive: Lungs Clear, Normal Breath Sounds. negative: Respiratory Distress, Accessory Muscle Use Cardiovascular: positive: Regular Rhythm, Regular Rate. negative: Murmur Gastrointestinal/Abdominal: positive: Soft. negative: Tenderness Musculoskeletal: negative: CVA Tenderness Extremity: positive: Normal Capillary Refill, Pedal Edema (2+ pitting bilateral) . negative: Calf Tenderness Integumentary: positive: Dry, Warm, Pale Neurologic: positive: Normal Mood/Affect, Motor Strength 5/5 (ambulatory) Abnormal Lab Results 08/31/16 08/31/16 05:35 05:35 WBC 10.7 H MCV 78.5 L RDW 16.3 H Neutrophils % 88.2 H D Monocytes % 1.5 L Random Glucose 278 H D Albumin 3.1 L A/P 66 y/o patient with h/o HTN/hyperlipidemia/hypothyroid/COPD comes in with Lt. chest pain, worsening lower extremity edema Cervical cancer- initially diagnosed 2009 s/p hysterectomy. Being treated at [facility] Recurred in 2012 with lung mets s/p 3cycles of carbo/taxol?? with serious complications Has been on megace/tamoxifen for 1yr. Recent CT in 07/25/16 showed large LLL mass with occlusion of sup. segment bronchus Progression of disease . Primary oncologist to follow her up in October On megace/tamoxifen f/u CT chest done here Close f/u with primary oncologist as out patient Lwer ext. sweloing--? rt. heat failure check duplex lower ext.
--- NOTE | 2016-08-31 13:21 | CONS ---
PULMONARY CONSULTATION DATE OF CONSULTATION: 08/31/2016 REFERRING PHYSICIAN: Lazara Fletcher MD HISTORY OF PRESENT ILLNESS: The patient is a 66-year-old female known to me from previous hospitalization in the past. Medical history of metastatic cervical CA with metastasis to the lungs, history of asthma, history of pulmonary emboli, diabetes, anxiety, hyperlipidemia, hypertension, hypothyroidism, and also chronic hypoxemia and maintained on 3 liters nasal cannula at home. She was admitted to [facility] on August 30, 2016, with complaining of cough, chest congestion, as well as left-sided chest pain that she describes aching sensation radiating down into the left neck and left upper arm. She also felt that she had increasing lower extremity edema. She denied any nausea, vomiting, diaphoresis, and she denied any hemoptysis. She denied any fevers or chills. The patient is a nonsmoker. She has no history of occupational exposure to chemicals or fumes. She states that she normally gets short of breath with exertion and denies any orthopnea or PND. PAST MEDICAL HISTORY: Again includes cervical CA with extensive lung metastasis status post chemotherapy, RT, ASHD, hypercholesterolemia, thyroid disease, history of left lower extremity bypass, umbilical hernia repair, amputation of the right 3rd and 4th toes, asthma, pulmonary emboli, diabetes, anxiety, hypertension, and history of chronic hypoxemia on home O2. REVIEW OF SYSTEMS: Positive chest pain. Positive shortness of breath. Positive cough. No fever. No chills. No hemoptysis. Positive left lower extremity edema. No orthopnea. No PND. No abdominal pain. Left lower extremity edema. CURRENT MEDICATIONS: Includes Solu-Medrol, prednisone, Cozaar, Levaquin, Megace, tamoxifen, Xanax, DuoNeb, NovoLog, Singulair, Lasix, aspirin, Roxicodone, and Synthroid. PHYSICAL EXAMINATION: General Appearance: The patient is a well-developed female awake, alert, appearing in no acute distress. Vital Signs: T-max is 100, currently 98.7, blood pressure of 162/79, respiratory rate of 20, and 2 saturation of 97% on room air. HEENT: Examination is normal. Head is normocephalic, atraumatic. Neck: Supple. Heart: Normal S1, S2. Chest: Diminished breath sounds bilaterally. A few scattered bilateral wheezes Abdomen: Soft, bowel sounds are positive. Extremities: No cyanosis or edema. LABORATORY DATA: BUN of 13, creatinine of 0.9. WBCs of 10.7, hemoglobin of 11.9, and hematocrit of 35.7 with a platelet count of 205,000. INR of 0.96. Chest x-ray with ill-defined masses and opacities both lungs increased in size compared to that of previous examinations. IMPRESSION: 1. Cervical carcinoma with extensive pulmonary metaphysis. 2. Chest pain syndrome. Possible musculoskeletal. Rule out cardiac. 3. Chronic asthma. 4. Chronic hypoxemia with respiratory failure on oxygen. 5. History of pulmonary emboli. 6. Hypertension. 7. Hypothyroidism. PLAN: Continue steroids and supplement course of steroids and O2 bronchodilators. Supplemental O2. Sputum for culture and sensitivity. Cardiology evaluation. Cardiac enzymes. I will follow closely with you. NICOLÁS CELAYA M.D. [id number]
[2016-08-31 21:27] LABS: TROPONIN I < 0.02 ng/ml (0.00-0.05)
[2016-08-31] MEDS: MONTELUKAST NA 10 MG TABLET PO SCH (21:32)
[2016-09-01] MEDS: ALBUTEROL SO4 2.5/IPRATROPIUM 0.5 INH SOL 3 ML VIAL.NEB. NEB PRN ×2 (01:35→06:55)
[2016-09-01] MEDS: methylPREDNISolone NA SUCC 40 MG/1 ML VIAL IVPB SCH ×3 (02:12→17:02)
[2016-09-01] MEDS: oxyCODONE HCL 5 MG TABLET PO PRN ×3 (03:02→21:36)
[2016-09-01] MEDS: LEVOTHYROXINE NA 100 MCG TABLET (FP) PO SCH (06:24)
[2016-09-01] MEDS: INSULIN (NOVOLOG) ASPART 100 UNITS/ML 10ML VIAL SQ SCH ×3 (06:24→17:02)
[2016-09-01] MEDS: ALPRAZolam 0.25 MG TABLET PO PRN ×3 (06:27→21:36)
--- NOTE | 2016-09-01 07:14 | PN ---
Progress Note, Physician Chief Complaint: Pt A&Ox3; feels weak; dyspneic on mild exertion. History of Present Illness: 66-year-old female (iveth. Everardo Neal) presents to the ED with complaints of worsening cough, congestion, now with left-sided chest pain that she describes an aching dull sensation that radiates to her left neck and left upper arm (on further questioning, pt says the chest pain only began after she had been coughing for several days, and is related to forceful coughing; the cough and chest pain have lessened over the past 48 hours). Patient also complaining of lower extremity edema and epigastric cramping. Patient denies fever, chills, productive cough, throat pain, headache, dizziness, nausea, diarrhea, change in urine output, or rash. Patient history of asthma, PE, cervical CA with metastases to lungs, diabetes, anxiety, hyperlipidemia, hypertension, hypothyroidism, obesity. Patient also is on oxygen 3 L nasal cannula at home ( denies hx cigarettes, but grew up with her mother smoking in the house). Presenting Symptoms: Abdominal Pain, Chest Pain, Short of Breath Timing/Duration: reports: constant Severity/Quality: reports: moderate, aching Location: reports: substernal Chest Pain Radiation: reports: no radiation Activities at Onset: reports: none Prior Chest Pain/Cardiac Workup: reports: Echocardiography Nitro Today/Relief: Yes: no nitro taken today Aspirin Received prior to arrival (Core Measure): Yes: no aspirin today, 81 mg x 2 (given in the ED) Associated Symptoms: Yes: Abdominal pain, Cough, Chest Pain/pressure - Current Medication List Current Medications: Active Medications Albuterol/Ipratropium (Duoneb -) 1 amp NEB Q6H PRN PRN Reason: SHORTNESS OF BREATH Last Admin: 09/01/16 06:55 Dose: 1 amp Alprazolam (Xanax -) 0.25 mg PO Q6H PRN PRN Reason: ANXIETY Last Admin: 09/01/16 06:27 Dose: 0.25 mg Aspirin (Asa -) 81 mg PO DAILY [facility] Last Admin: 08/31/16 09:39 Dose: 81 mg Furosemide (Lasix -) 20 mg PO DAILY [facility] Last Admin: 08/31/16 09:39 Dose: 20 mg Levofloxacin (Levaquin 500 Mg Premixed Ivpb -) 100 mls @ 100 mls/hr IVPB DAILY [facility] Last Admin: 08/31/16 12:24 Dose: 100 mls/hr Insulin Aspart (Novolog Vial) 15 units SQ TIDAC [facility] Last Admin: 09/01/16 06:24 Dose: 15 units Levothyroxine Sodium (Synthroid -) 100 mcg PO DAILY@0700 [facility] Last Admin: 09/01/16 06:24 Dose: 100 mcg Losartan Potassium (Cozaar -) 50 mg PO BID [facility] Last Admin: 08/31/16 21:32 Dose: 50 mg Methylprednisolone Sodium Succinate (Solu-Medrol -) 40 mg IVPB Q8H-IV [facility] Last Admin: 09/01/16 02:12 Dose: 40 mg Montelukast Sodium (Singulair -) 10 mg PO HS [facility] Last Admin: 08/31/16 21:32 Dose: 10 mg Oxycodone HCl (Roxicodone -) 15 mg PO TID PRN PRN Reason: PAIN Last Admin: 09/01/16 03:02 Dose: 15 mg Tamoxifen Citrate (Tamoxifen Citrate) 20 mg PO BID [facility] Last Admin: 08/31/16 21:31 Dose: 20 mg Tobramycin Sulfate (Tobrex Ophthalmic Solution -) 1 drop OD Q6HPO [facility] - Objective Vital Signs: Vital Signs Temperature 99 F 09/01/16 05:43 Pulse Rate 95 H 09/01/16 05:43 Respiratory Rate 20 09/01/16 05:43 Blood Pressure 133/69 09/01/16 05:43 O2 Sat by Pulse Oximetry (%) 97 08/31/16 21:00 Constitutional: Yes: Anxious Eyes: Yes: WNL HENT: Yes: WNL Neck: Yes: WNL Cardiovascular: Yes: Regular Rate and Rhythm Respiratory: Yes: Diminished Gastrointestinal: Yes: Soft ...Rectal Exam: Yes: Deferred Genitourinary: No: Anuria Musculoskeletal: Yes: Muscle Weakness Extremities: Yes: Cool Edema: No Peripheral Pulses WNL: Yes Integumentary: Yes: WNL Neurological: Yes: Alert, Oriented, Weakness Psychiatric: Yes: Other (anxiety) Labs: CBC, BMP 08/31/16 05:35 08/31/16 05:35 INR, PTT INR 0.96 (0.82-1.09) 08/30/16 11:32 Problem List - Problems (1) Pulmonary emboli Assessment/Plan: F/u PMHx; ? hx PE. Would start IV heparin on Lovenox empirically. Code(s): I26.99 - OTHER PULMONARY EMBOLISM WITHOUT ACUTE COR PULMONALE (2) Cervical cancer Assessment/Plan: with metastases to lungs. F/u with oncologist. Code(s): C53.9 - MALIGNANT NEOPLASM OF CERVIX UTERI, UNSPECIFIED (3) Primary cervical cancer with metastasis to other site Assessment/Plan: f/u ECHO (limited study 03/2016: unable to assess valves; LVEF was normal, and no pericardial effusion was noted). Code(s): C53.9 - MALIGNANT NEOPLASM OF CERVIX UTERI, UNSPECIFIED C79.9 - SECONDARY MALIGNANT NEOPLASM OF UNSPECIFIED SITE (4) Hypertension Assessment/Plan: On ARB. On furosemide (avoid dehydration). Code(s): I10 - ESSENTIAL (PRIMARY) HYPERTENSION Qualifiers: Qualified Code(s): I10 - Essential (primary) hypertension (5) Hypothyroidism Assessment/Plan: on synthroid; f/u TSH. Code(s): E03.9 - HYPOTHYROIDISM, UNSPECIFIED Qualifiers: Qualified Code(s): E03.9 - Hypothyroidism, unspecified (6) Diabetes Code(s): E11.9 - TYPE 2 DIABETES MELLITUS WITHOUT COMPLICATIONS (7) Atypical chest pain Assessment/Plan: Pt says the chest pain only occurs after bout of prolonged coughing. TNI < 0.02; f/u 2nd draw. F/u TSH. F/u ECHO. F/u liipid panel. Given pt's advanced cancer, would treat conservatively. Code(s): R07.89 - OTHER CHEST PAIN (8) Obesity Code(s): E66.9 - OBESITY, UNSPECIFIED
--- NOTE | 2016-09-01 09:37 | PN ---
Progress Note, Physician History of Present Illness: PULMONARY ALERT,FEELING BETTER,LESS DYSPNEIC.-CP - Current Medication List Current Medications: Active Medications Albuterol/Ipratropium (Duoneb -) 1 amp NEB Q6H PRN PRN Reason: SHORTNESS OF BREATH Last Admin: 09/01/16 06:55 Dose: 1 amp Alprazolam (Xanax -) 0.25 mg PO Q6H PRN PRN Reason: ANXIETY Last Admin: 09/01/16 06:27 Dose: 0.25 mg Aspirin (Asa -) 81 mg PO DAILY [facility] Last Admin: 08/31/16 09:39 Dose: 81 mg Furosemide (Lasix -) 20 mg PO DAILY [facility] Last Admin: 08/31/16 09:39 Dose: 20 mg Levofloxacin (Levaquin 500 Mg Premixed Ivpb -) 100 mls @ 100 mls/hr IVPB DAILY [facility] Last Admin: 08/31/16 12:24 Dose: 100 mls/hr Insulin Aspart (Novolog Vial) 15 units SQ TIDAC [facility] Last Admin: 09/01/16 06:24 Dose: 15 units Levothyroxine Sodium (Synthroid -) 100 mcg PO DAILY@0700 [facility] Last Admin: 09/01/16 06:24 Dose: 100 mcg Losartan Potassium (Cozaar -) 50 mg PO BID [facility] Last Admin: 08/31/16 21:32 Dose: 50 mg Methylprednisolone Sodium Succinate (Solu-Medrol -) 40 mg IVPB Q8H-IV [facility] Last Admin: 09/01/16 02:12 Dose: 40 mg Montelukast Sodium (Singulair -) 10 mg PO HS [facility] Last Admin: 08/31/16 21:32 Dose: 10 mg Oxycodone HCl (Roxicodone -) 15 mg PO TID PRN PRN Reason: PAIN Last Admin: 09/01/16 03:02 Dose: 15 mg Tamoxifen Citrate (Tamoxifen Citrate) 20 mg PO BID [facility] Last Admin: 08/31/16 21:31 Dose: 20 mg Tobramycin Sulfate (Tobrex Ophthalmic Solution -) 1 drop OD Q6HPO [facility] - Objective Vital Signs: Vital Signs Temperature 99 F 09/01/16 05:43 Pulse Rate 95 H 09/01/16 05:43 Respiratory Rate 20 09/01/16 05:43 Blood Pressure 133/69 09/01/16 05:43 O2 Sat by Pulse Oximetry (%) 97 08/31/16 21:00 Constitutional: Yes: Well Nourished, Calm Eyes: Yes: WNL HENT: Yes: WNL Neck: Yes: WNL Cardiovascular: Yes: Regular Rate and Rhythm, S1, S2 Respiratory: Yes: Diminished Gastrointestinal: Yes: Normal Bowel Sounds, Soft Extremities: Yes: WNL Edema: Yes Labs: CBC, BMP INR, PTT INR 0.96 (0.82-1.09) 08/30/16 11:32 Problem List - Problems (1) Acute asthma exacerbation Code(s): J45.901 - UNSPECIFIED ASTHMA WITH (ACUTE) EXACERBATION (2) Chest pain Code(s): R07.9 - CHEST PAIN, UNSPECIFIED Qualifiers: Chest pain type: unspecified Qualified Code(s): R07.9 - Chest pain, unspecified (3) Primary cervical cancer with metastasis to other site Code(s): C53.9 - MALIGNANT NEOPLASM OF CERVIX UTERI, UNSPECIFIED C79.9 - SECONDARY MALIGNANT NEOPLASM OF UNSPECIFIED SITE (4) Pulmonary emboli Code(s): I26.99 - OTHER PULMONARY EMBOLISM WITHOUT ACUTE COR PULMONALE (5) Cervical cancer Code(s): C53.9 - MALIGNANT NEOPLASM OF CERVIX UTERI, UNSPECIFIED (6) Fever Code(s): R50.9 - FEVER, UNSPECIFIED (7) Metastasis to lung Code(s): C78.00 - SECONDARY MALIGNANT NEOPLASM OF UNSPECIFIED LUNG (8) Metastatic disease Code(s): C79.9 - SECONDARY MALIGNANT NEOPLASM OF UNSPECIFIED SITE (9) Steroid dependence Code(s): [id number] - (10) Type 2 diabetes mellitus with hyperosmolarity without nonketotic hyperglycemic-hyperosmolar coma (nkhhc) Code(s): E11.00 - TYPE 2 DIAB W HYPROSM W/O NONKET HYPRGLY-HYPROS COMA ([facility]) (11) Chronic steroid use Code(s): [id number] - (12) Hyperlipidemia Code(s): E78.5 - HYPERLIPIDEMIA, UNSPECIFIED Qualifiers: Hyperlipidemia type: unspecified Qualified Code(s): E78.5 - Hyperlipidemia, unspecified (13) Hypertension Code(s): I10 - ESSENTIAL (PRIMARY) HYPERTENSION Qualifiers: Hypertension type: essential hypertension Qualified Code(s): I10 - Essential (primary) hypertension (14) Hypothyroidism Code(s): E03.9 - HYPOTHYROIDISM, UNSPECIFIED Qualifiers: Hypothyroidism type: unspecified Qualified Code(s): E03.9 - Hypothyroidism, unspecified (15) Chronic hypoxemic respiratory failure Code(s): J96.11 - CHRONIC RESPIRATORY FAILURE WITH HYPOXIA Assessment/Plan IMP CERVICAL CA WITH LUNG METS CHRONIC HYPOXEMIC RESPIRATORY FAILURE ASTHMA CHEST PAIN SYNDROME IMPROVING URI HYPOTHYROID H/O PE HLD PLAN NASAL O2 INHALED BRONCHODILATORS SOLUMEDROL ANTIBIOTICS DR CELAYA Problem List - Problems (1) Acute asthma exacerbation Code(s): J45.901 - UNSPECIFIED ASTHMA WITH (ACUTE) EXACERBATION (2) Chest pain Code(s): R07.9 - CHEST PAIN, UNSPECIFIED Qualifiers: Chest pain type: unspecified Qualified Code(s): R07.9 - Chest pain, unspecified (3) Primary cervical cancer with metastasis to other site Code(s): C53.9 - MALIGNANT NEOPLASM OF CERVIX UTERI, UNSPECIFIED C79.9 - SECONDARY MALIGNANT NEOPLASM OF UNSPECIFIED SITE (4) Pulmonary emboli Code(s): I26.99 - OTHER PULMONARY EMBOLISM WITHOUT ACUTE COR PULMONALE (5) Cervical cancer Code(s): C53.9 - MALIGNANT NEOPLASM OF CERVIX UTERI, UNSPECIFIED (6) Fever Code(s): R50.9 - FEVER, UNSPECIFIED (7) Metastasis to lung Code(s): C78.00 - SECONDARY MALIGNANT NEOPLASM OF UNSPECIFIED LUNG (8) Metastatic disease Code(s): C79.9 - SECONDARY MALIGNANT NEOPLASM OF UNSPECIFIED SITE (9) Steroid dependence Code(s): [id number] - (10) Type 2 diabetes mellitus with hyperosmolarity without nonketotic hyperglycemic-hyperosmolar coma (nkhhc) Code(s): E11.00 - TYPE 2 DIAB W HYPROSM W/O NONKET HYPRGLY-HYPROS COMA ([facility]) (11) Chronic steroid use Code(s): [id number] - (12) Hyperlipidemia Code(s): E78.5 - HYPERLIPIDEMIA, UNSPECIFIED Qualifiers: Hyperlipidemia type: unspecified Qualified Code(s): E78.5 - Hyperlipidemia, unspecified (13) Hypertension Code(s): I10 - ESSENTIAL (PRIMARY) HYPERTENSION Qualifiers: Hypertension type: essential hypertension Qualified Code(s): I10 - Essential (primary) hypertension (14) Hypothyroidism Code(s): E03.9 - HYPOTHYROIDISM, UNSPECIFIED Qualifiers: Hypothyroidism type: unspecified Qualified Code(s): E03.9 - Hypothyroidism, unspecified (15) Chronic hypoxemic respiratory failure Code(s): J96.11 - CHRONIC RESPIRATORY FAILURE WITH HYPOXIA
[2016-09-01] MEDS: TAMOXIFEN CITRATE 10 MG TABLET PO SCH ×2 (09:45→21:57)
[2016-09-01] MEDS: LEVOFLOXACIN 500 MG IVPB 100 ML IVPB SCH (09:45)
[2016-09-01] MEDS: LOSARTAN POTASSIUM 50 MG TABLET (FP) PO SCH ×2 (09:49→21:37)
[2016-09-01] MEDS: FUROSEMIDE 20 MG TABLET (FP) PO SCH (09:49)
[2016-09-01] MEDS: ASPIRIN 81 MG CHEWABLE TABLETS PO SCH (09:49)
--- NOTE | 2016-09-01 11:03 | PN ---
Progress Note, Physician - Current Medication List Current Medications: Active Medications Albuterol/Ipratropium (Duoneb -) 1 amp NEB Q6H PRN PRN Reason: SHORTNESS OF BREATH Last Admin: 09/01/16 06:55 Dose: 1 amp Alprazolam (Xanax -) 0.25 mg PO Q6H PRN PRN Reason: ANXIETY Last Admin: 09/01/16 06:27 Dose: 0.25 mg Aspirin (Asa -) 81 mg PO DAILY [facility] Last Admin: 09/01/16 09:49 Dose: 81 mg Furosemide (Lasix -) 20 mg PO DAILY [facility] Last Admin: 09/01/16 09:49 Dose: 20 mg Levofloxacin (Levaquin 500 Mg Premixed Ivpb -) 100 mls @ 100 mls/hr IVPB DAILY [facility] Last Admin: 09/01/16 09:45 Dose: 100 mls/hr Insulin Aspart (Novolog Vial) 15 units SQ TIDAC [facility] Last Admin: 09/01/16 06:24 Dose: 15 units Levothyroxine Sodium (Synthroid -) 100 mcg PO DAILY@0700 [facility] Last Admin: 09/01/16 06:24 Dose: 100 mcg Losartan Potassium (Cozaar -) 50 mg PO BID [facility] Last Admin: 09/01/16 09:49 Dose: 50 mg Methylprednisolone Sodium Succinate (Solu-Medrol -) 40 mg IVPB Q8H-IV [facility] Last Admin: 09/01/16 09:45 Dose: 40 mg Montelukast Sodium (Singulair -) 10 mg PO HS [facility] Last Admin: 08/31/16 21:32 Dose: 10 mg Oxycodone HCl (Roxicodone -) 15 mg PO TID PRN PRN Reason: PAIN Last Admin: 09/01/16 03:02 Dose: 15 mg Tamoxifen Citrate (Tamoxifen Citrate) 20 mg PO BID [facility] Last Admin: 09/01/16 09:45 Dose: 20 mg Tobramycin Sulfate (Tobrex Ophthalmic Solution -) 1 drop OS Q6HPO [facility] - Objective Vital Signs: Vital Signs Temperature 99 F 09/01/16 05:43 Pulse Rate 95 H 09/01/16 05:43 Respiratory Rate 20 09/01/16 05:43 Blood Pressure 133/69 09/01/16 05:43 O2 Sat by Pulse Oximetry (%) 97 08/31/16 21:00 Labs: CBC, BMP 08/31/16 05:35 08/31/16 05:35 INR, PTT INR 0.96 (0.82-1.09) 08/30/16 11:32 Assessment/Plan 66 year old woman with a history of HTN, HLD, DMII, obesity, h/o PE, metastatic cervical CA, Asthma home O2, admitted with cough, chest pain. Coughing with Chest pain-after coughing, unlikely ACS -cardiac enzymes wnl -echo showed normal LV systolic function, mild valvular abnl -no events recorded on telemetry -cont ASA, Lasix, Losartan -no additional planned ischemic work up at this point -being tx for asthma exacerbation HTN-adequately controlled -cont current meds for now H/o PE -clarify history and treatment plan
--- NOTE | 2016-09-01 11:05 | PN ---
Progress Note, Physician History of Present Illness: seen and examined today in nad. no overnight events. no new complaints. - Current Medication List Current Medications: Active Medications Albuterol/Ipratropium (Duoneb -) 1 amp NEB Q6H PRN PRN Reason: SHORTNESS OF BREATH Last Admin: 09/01/16 06:55 Dose: 1 amp Alprazolam (Xanax -) 0.25 mg PO Q6H PRN PRN Reason: ANXIETY Last Admin: 09/01/16 06:27 Dose: 0.25 mg Aspirin (Asa -) 81 mg PO DAILY [facility] Last Admin: 09/01/16 09:49 Dose: 81 mg Furosemide (Lasix -) 20 mg PO DAILY [facility] Last Admin: 09/01/16 09:49 Dose: 20 mg Levofloxacin (Levaquin 500 Mg Premixed Ivpb -) 100 mls @ 100 mls/hr IVPB DAILY [facility] Last Admin: 09/01/16 09:45 Dose: 100 mls/hr Insulin Aspart (Novolog Vial) 15 units SQ TIDAC [facility] Last Admin: 09/01/16 06:24 Dose: 15 units Levothyroxine Sodium (Synthroid -) 100 mcg PO DAILY@0700 [facility] Last Admin: 09/01/16 06:24 Dose: 100 mcg Losartan Potassium (Cozaar -) 50 mg PO BID [facility] Last Admin: 09/01/16 09:49 Dose: 50 mg Methylprednisolone Sodium Succinate (Solu-Medrol -) 40 mg IVPB Q8H-IV [facility] Last Admin: 09/01/16 09:45 Dose: 40 mg Montelukast Sodium (Singulair -) 10 mg PO HS [facility] Last Admin: 08/31/16 21:32 Dose: 10 mg Oxycodone HCl (Roxicodone -) 15 mg PO TID PRN PRN Reason: PAIN Last Admin: 09/01/16 03:02 Dose: 15 mg Tamoxifen Citrate (Tamoxifen Citrate) 20 mg PO BID [facility] Last Admin: 09/01/16 09:45 Dose: 20 mg Tobramycin Sulfate (Tobrex Ophthalmic Solution -) 1 drop OS Q6HPO [facility] - Objective Vital Signs: Vital Signs Temperature 99 F 09/01/16 05:43 Pulse Rate 95 H 09/01/16 05:43 Respiratory Rate 20 09/01/16 05:43 Blood Pressure 133/69 09/01/16 05:43 O2 Sat by Pulse Oximetry (%) 97 08/31/16 21:00 Constitutional: Yes: No Distress, Calm, Obese Eyes: Yes: Conjunctiva Clear, EOM Intact, PERRL HENT: Yes: Atraumatic, Normocephalic Neck: Yes: Supple, Trachea Midline Cardiovascular: Yes: Regular Rate and Rhythm, S1, S2. No: Bradycardia, Tachycardia, Pulse Irregular, Bruit, JVD, Gallop, Murmur, Rub, S3, S4, Varicosities Respiratory: Yes: Regular, CTA Bilaterally. No: Rales, Rhonchi, Wheezes Gastrointestinal: Yes: Normal Bowel Sounds, Soft. No: Distention, Tenderness Musculoskeletal: Yes: WNL Extremities: Yes: WNL Edema: LLE: Trace, RLE: Trace Peripheral Pulses WNL: Yes Peripheral Pulses: Left Doralis Pedis: 2+, Right Dorsalis Pedis: 2+ Integumentary: Yes: WNL Neurological: Yes: Alert, Oriented, Cran Nerves II-XII Intact Psychiatric: Yes: Alert, Oriented Labs: CBC, BMP 08/31/16 05:35 08/31/16 05:35 INR, PTT INR 0.96 (0.82-1.09) 08/30/16 11:32 - ....Imaging Chest X-ray: Report Reviewed, Image Reviewed EKG: Report Reviewed, Image Reviewed Other: Report Reviewed, Image Reviewed (tele-nsr, no events recorded) Assessment/Plan 66 year old woman with a history of HTN, HLD, DMII, obesity, h/o PE, metastatic cervical CA, Asthma home O2, admitted with cough, chest pain. Coughing with Chest pain-after coughing, unlikely ACS -cardiac enzymes wnl -echo showed normal LV systolic function, mild valvular abnl -no events recorded on telemetry -cont ASA, Lasix, Losartan -no additional planned ischemic work up at this point -being tx for asthma exacerbation HTN-adequately controlled -cont current meds for now H/o PE -clarify history and treatment plan
[2016-09-01] MEDS: TOBRAMYCIN 0.3% OPHTH SOLN 5 ML BOTTLE OS SCH ×3 (11:34→17:01)
--- NOTE | 2016-09-01 18:33 | PN ---
Progress Note, Physician History of Present Illness: No new change - Current Medication List Current Medications: Active Medications Albuterol/Ipratropium (Duoneb -) 1 amp NEB Q6H PRN PRN Reason: SHORTNESS OF BREATH Last Admin: 09/01/16 06:55 Dose: 1 amp Alprazolam (Xanax -) 0.25 mg PO Q6H PRN PRN Reason: ANXIETY Last Admin: 09/01/16 14:20 Dose: 0.25 mg Aspirin (Asa -) 81 mg PO DAILY [facility] Last Admin: 09/01/16 09:49 Dose: 81 mg Furosemide (Lasix -) 20 mg PO DAILY [facility] Last Admin: 09/01/16 09:49 Dose: 20 mg Levofloxacin (Levaquin 500 Mg Premixed Ivpb -) 100 mls @ 100 mls/hr IVPB DAILY [facility] Last Admin: 09/01/16 09:45 Dose: 100 mls/hr Insulin Aspart (Novolog Vial) 15 units SQ TIDAC [facility] Last Admin: 09/01/16 17:02 Dose: 15 units Insulin Detemir (Levemir Vial) 25 units SQ BID@0700,2200 [facility] Levothyroxine Sodium (Synthroid -) 100 mcg PO DAILY@0700 [facility] Last Admin: 09/01/16 06:24 Dose: 100 mcg Losartan Potassium (Cozaar -) 50 mg PO BID [facility] Last Admin: 09/01/16 09:49 Dose: 50 mg Methylprednisolone Sodium Succinate (Solu-Medrol -) 40 mg IVPB Q8H-IV [facility] Last Admin: 09/01/16 17:02 Dose: 40 mg Montelukast Sodium (Singulair -) 10 mg PO HS [facility] Last Admin: 08/31/16 21:32 Dose: 10 mg Nystatin (Nystop Powder -) 1 applic TP BID [facility] Oxycodone HCl (Roxicodone -) 15 mg PO TID PRN PRN Reason: PAIN Last Admin: 09/01/16 11:30 Dose: 15 mg Tamoxifen Citrate (Tamoxifen Citrate) 20 mg PO BID [facility] Last Admin: 09/01/16 09:45 Dose: 20 mg Tobramycin Sulfate (Tobrex Ophthalmic Solution -) 1 drop OS Q6HPO [facility] Last Admin: 09/01/16 17:01 Dose: 1 drop - Objective Vital Signs: Vital Signs Temperature 97.9 F 09/01/16 18:00 Pulse Rate 85 09/01/16 18:00 Respiratory Rate 20 09/01/16 18:00 Blood Pressure 143/77 09/01/16 18:00 O2 Sat by Pulse Oximetry (%) 97 09/01/16 09:00 Constitutional: Yes: Well Nourished Eyes: Yes: WNL HENT: Yes: WNL Neck: Yes: WNL Cardiovascular: Yes: WNL Respiratory: Yes: Wheezes Gastrointestinal: Yes: WNL, Normal Bowel Sounds, Soft, Abdomen, Obese Labs: CBC, BMP 08/31/16 05:35 08/31/16 05:35 INR, PTT INR 0.96 (0.82-1.09) 08/30/16 11:32 Assessment/Plan 1. Exacerbation COPD Cont IV steroids/antibxs Cont nebulizers Pulmonary consult 2. Metastatic breast cancer 3. HTN 4. Diabetes
[2016-09-01] MEDS: MONTELUKAST NA 10 MG TABLET PO SCH (21:37)
[2016-09-01] MEDS: INSULIN DETEMIR 100 UNITS/ML MDV SQ SCH (21:38)
[2016-09-01] MEDS ORDERED: ACETAMINOPHEN 325 MG TABLET (FP) ONE (21:40)
[2016-09-01] MEDS ORDERED: TOBRAMYCIN 0.3% OPHTH SOLN 5 ML BOTTLE OD SCH (22:14)
[2016-09-02] MEDS: methylPREDNISolone NA SUCC 40 MG/1 ML VIAL IVPB SCH ×3 (02:39→17:11)
[2016-09-02] MEDS: oxyCODONE HCL 5 MG TABLET PO PRN ×3 (06:17→21:19)
[2016-09-02] MEDS: ALPRAZolam 0.25 MG TABLET PO PRN ×3 (06:18→20:42)
[2016-09-02] MEDS: LEVOTHYROXINE NA 100 MCG TABLET (FP) PO SCH (06:18)
[2016-09-02] MEDS: TOBRAMYCIN 0.3% OPHTH SOLN 5 ML BOTTLE OS SCH ×4 (06:19→17:12)
[2016-09-02] MEDS: INSULIN DETEMIR 100 UNITS/ML MDV SQ SCH ×2 (06:19→21:17)
[2016-09-02] MEDS: INSULIN (NOVOLOG) ASPART 100 UNITS/ML 10ML VIAL SQ SCH ×3 (06:20→16:24)
[2016-09-02] MEDS: LEVOFLOXACIN 500 MG IVPB 100 ML IVPB SCH (09:04)
[2016-09-02] MEDS: LOSARTAN POTASSIUM 50 MG TABLET (FP) PO SCH ×2 (09:04→21:17)
[2016-09-02] MEDS: FUROSEMIDE 20 MG TABLET (FP) PO SCH (09:04)
[2016-09-02] MEDS: ASPIRIN 81 MG CHEWABLE TABLETS PO SCH (09:04)
[2016-09-02] MEDS ORDERED: PT OWN MED DRAWER 7, Y5N ONE ×2 (09:06→21:28)
[2016-09-02] MEDS: TAMOXIFEN CITRATE 10 MG TABLET PO SCH ×2 (09:07→21:29)
[2016-09-02] MEDS: NYSTATIN POWDER 100,000 UNITS/GM - 15 GM TOPICAL POWDER TP SCH ×3 (09:08→21:20)
--- NOTE | 2016-09-02 09:39 | PN ---
Progress Note, Physician History of Present Illness: PULMONARY ALERT,FEELING BETTER,-C/O CP,LESS DYSPNEIC - Current Medication List Current Medications: Active Medications Albuterol/Ipratropium (Duoneb -) 1 amp NEB Q6H PRN PRN Reason: SHORTNESS OF BREATH Last Admin: 09/01/16 06:55 Dose: 1 amp Alprazolam (Xanax -) 0.25 mg PO Q6H PRN PRN Reason: ANXIETY Last Admin: 09/02/16 06:18 Dose: 0.25 mg Aspirin (Asa -) 81 mg PO DAILY [facility] Last Admin: 09/02/16 09:04 Dose: 81 mg Furosemide (Lasix -) 20 mg PO DAILY [facility] Last Admin: 09/02/16 09:04 Dose: 20 mg Levofloxacin (Levaquin 500 Mg Premixed Ivpb -) 100 mls @ 100 mls/hr IVPB DAILY [facility] Last Admin: 09/02/16 09:04 Dose: 100 mls/hr Insulin Aspart (Novolog Vial) 15 units SQ TIDAC [facility] Last Admin: 09/02/16 06:20 Dose: 15 units Insulin Detemir (Levemir Vial) 25 units SQ BID@0700,2200 [facility] Last Admin: 09/02/16 06:19 Dose: 25 units Levothyroxine Sodium (Synthroid -) 100 mcg PO DAILY@0700 [facility] Last Admin: 09/02/16 06:18 Dose: 100 mcg Losartan Potassium (Cozaar -) 50 mg PO BID [facility] Last Admin: 09/02/16 09:04 Dose: 50 mg Methylprednisolone Sodium Succinate (Solu-Medrol -) 40 mg IVPB Q8H-IV [facility] Last Admin: 09/02/16 09:04 Dose: 40 mg Montelukast Sodium (Singulair -) 10 mg PO HS [facility] Last Admin: 09/01/16 21:37 Dose: 10 mg Nystatin (Nystop Powder -) 1 applic TP BID [facility] Last Admin: 09/02/16 09:08 Dose: 1 applic Oxycodone HCl (Roxicodone -) 15 mg PO TID PRN PRN Reason: PAIN Last Admin: 09/02/16 06:17 Dose: 15 mg Tamoxifen Citrate (Tamoxifen Citrate) 20 mg PO BID [facility] Last Admin: 09/02/16 09:07 Dose: 20 mg Tobramycin Sulfate (Tobrex Ophthalmic Solution -) 1 drop OS Q6HPO [facility] Last Admin: 09/02/16 06:19 Dose: 1 drop - Objective Vital Signs: Vital Signs Temperature 99.1 F 09/02/16 05:59 Pulse Rate 81 09/02/16 05:59 Respiratory Rate 20 09/02/16 05:59 Blood Pressure 164/67 09/02/16 05:59 O2 Sat by Pulse Oximetry (%) 97 09/01/16 20:46 Constitutional: Yes: Well Nourished, Calm Eyes: Yes: WNL HENT: Yes: WNL Neck: Yes: WNL Cardiovascular: Yes: Regular Rate and Rhythm, S1, S2 Respiratory: Yes: Diminished Gastrointestinal: Yes: Normal Bowel Sounds, Soft Extremities: Yes: WNL Edema: No Labs: CBC, BMP INR, PTT INR 0.96 (0.82-1.09) 08/30/16 11:32 Problem List - Problems (1) Acute asthma exacerbation Code(s): J45.901 - UNSPECIFIED ASTHMA WITH (ACUTE) EXACERBATION (2) Chest pain Code(s): R07.9 - CHEST PAIN, UNSPECIFIED Qualifiers: Chest pain type: unspecified Qualified Code(s): R07.9 - Chest pain, unspecified (3) Primary cervical cancer with metastasis to other site Code(s): C53.9 - MALIGNANT NEOPLASM OF CERVIX UTERI, UNSPECIFIED C79.9 - SECONDARY MALIGNANT NEOPLASM OF UNSPECIFIED SITE (4) Pulmonary emboli Code(s): I26.99 - OTHER PULMONARY EMBOLISM WITHOUT ACUTE COR PULMONALE (5) Cervical cancer Code(s): C53.9 - MALIGNANT NEOPLASM OF CERVIX UTERI, UNSPECIFIED (6) Fever Code(s): R50.9 - FEVER, UNSPECIFIED (7) Metastasis to lung Code(s): C78.00 - SECONDARY MALIGNANT NEOPLASM OF UNSPECIFIED LUNG (8) Metastatic disease Code(s): C79.9 - SECONDARY MALIGNANT NEOPLASM OF UNSPECIFIED SITE (9) Steroid dependence Code(s): [id number] - (10) Type 2 diabetes mellitus with hyperosmolarity without nonketotic hyperglycemic-hyperosmolar coma ([facility]) Code(s): E11.00 - TYPE 2 DIAB W HYPROSM W/O NONKET HYPRGLY-HYPROS COMA ([facility]) (11) Chronic steroid use Code(s): [id number] - (12) Hyperlipidemia Code(s): E78.5 - HYPERLIPIDEMIA, UNSPECIFIED Qualifiers: Hyperlipidemia type: unspecified Qualified Code(s): E78.5 - Hyperlipidemia, unspecified (13) Hypertension Code(s): I10 - ESSENTIAL (PRIMARY) HYPERTENSION Qualifiers: Hypertension type: essential hypertension Qualified Code(s): I10 - Essential (primary) hypertension (14) Hypothyroidism Code(s): E03.9 - HYPOTHYROIDISM, UNSPECIFIED Qualifiers: Hypothyroidism type: unspecified Qualified Code(s): E03.9 - Hypothyroidism, unspecified (15) Chronic hypoxemic respiratory failure Code(s): J96.11 - CHRONIC RESPIRATORY FAILURE WITH HYPOXIA Assessment/Plan IMP CERVICAL CA WITH LUNG METS CHRONIC HYPOXEMIC RESPIRATORY FAILURE ASTHMA CHEST PAIN SYNDROME IMPROVED URI HYPOTHYROID H/O PE HLD FEVER PLAN NASAL O2 INHALED BRONCHODILATORS SOLUMEDROL ANTIBIOTICS DR CELAYA Problem List - Problems (1) Acute asthma exacerbation Code(s): J45.901 - UNSPECIFIED ASTHMA WITH (ACUTE) EXACERBATION (2) Chest pain Code(s): R07.9 - CHEST PAIN, UNSPECIFIED Qualifiers: Chest pain type: unspecified Qualified Code(s): R07.9 - Chest pain, unspecified (3) Primary cervical cancer with metastasis to other site Code(s): C53.9 - MALIGNANT NEOPLASM OF CERVIX UTERI, UNSPECIFIED C79.9 - SECONDARY MALIGNANT NEOPLASM OF UNSPECIFIED SITE (4) Pulmonary emboli Code(s): I26.99 - OTHER PULMONARY EMBOLISM WITHOUT ACUTE COR PULMONALE (5) Cervical cancer Code(s): C53.9 - MALIGNANT NEOPLASM OF CERVIX UTERI, UNSPECIFIED (6) Fever Code(s): R50.9 - FEVER, UNSPECIFIED (7) Metastasis to lung Code(s): C78.00 - SECONDARY MALIGNANT NEOPLASM OF UNSPECIFIED LUNG (8) Metastatic disease Code(s): C79.9 - SECONDARY MALIGNANT NEOPLASM OF UNSPECIFIED SITE (9) Steroid dependence Code(s): [id number] - (10) Type 2 diabetes mellitus with hyperosmolarity without nonketotic hyperglycemic-hyperosmolar coma ([facility] [facility]) Code(s): E11.00 - TYPE 2 DIAB W HYPROSM W/O NONKET HYPRGLY-HY[facility]OS COMA [facility] (11) Chronic steroid use Code(s): [id number] - (12) Hyperlipidemia Code(s): E78.5 - HYPERLIPIDEMIA, UNSPECIFIED Qualifiers: Hyperlipidemia type: unspecified Qualified Code(s): E78.5 - Hyperlipidemia, unspecified (13) Hypertension Code(s): I10 - ESSENTIAL (PRIMARY) HYPERTENSION Qualifiers: Hypertension type: essential hypertension Qualified Code(s): I10 - Essential (primary) hypertension (14) Hypothyroidism Code(s): E03.9 - HYPOTHYROIDISM, UNSPECIFIED Qualifiers: Hypothyroidism type: unspecified Qualified Code(s): E03.9 - Hypothyroidism, unspecified (15) Chronic hypoxemic respiratory failure Code(s): J96.11 - CHRONIC RESPIRATORY FAILURE WITH HYPOXIA
--- NOTE | 2016-09-02 09:42 | PN ---
Progress Note, Physician History of Present Illness: seen and examined today in nad. states she is feeling better. no overnight events. no new complaints. - Current Medication List Current Medications: Active Medications Albuterol/Ipratropium (Duoneb -) 1 amp NEB Q6H PRN PRN Reason: SHORTNESS OF BREATH Last Admin: 09/01/16 06:55 Dose: 1 amp Alprazolam (Xanax -) 0.25 mg PO Q6H PRN PRN Reason: ANXIETY Last Admin: 09/02/16 06:18 Dose: 0.25 mg Aspirin (Asa -) 81 mg PO DAILY [facility] Last Admin: 09/02/16 09:04 Dose: 81 mg Furosemide (Lasix -) 20 mg PO DAILY [facility] Last Admin: 09/02/16 09:04 Dose: 20 mg Levofloxacin (Levaquin 500 Mg Premixed Ivpb -) 100 mls @ 100 mls/hr IVPB DAILY [facility] Last Admin: 09/02/16 09:04 Dose: 100 mls/hr Insulin Aspart (Novolog Vial) 15 units SQ TIDAC [facility] Last Admin: 09/02/16 06:20 Dose: 15 units Insulin Detemir (Levemir Vial) 25 units SQ BID@0700,2200 [facility] Last Admin: 09/02/16 06:19 Dose: 25 units Levothyroxine Sodium (Synthroid -) 100 mcg PO DAILY@0700 [facility] Last Admin: 09/02/16 06:18 Dose: 100 mcg Losartan Potassium (Cozaar -) 50 mg PO BID [facility] Last Admin: 09/02/16 09:04 Dose: 50 mg Methylprednisolone Sodium Succinate (Solu-Medrol -) 40 mg IVPB Q8H-IV [facility] Last Admin: 09/02/16 09:04 Dose: 40 mg Montelukast Sodium (Singulair -) 10 mg PO HS [facility] Last Admin: 09/01/16 21:37 Dose: 10 mg Nystatin (Nystop Powder -) 1 applic TP BID [facility] Last Admin: 09/02/16 09:08 Dose: 1 applic Oxycodone HCl (Roxicodone -) 15 mg PO TID PRN PRN Reason: PAIN Last Admin: 09/02/16 06:17 Dose: 15 mg Tamoxifen Citrate (Tamoxifen Citrate) 20 mg PO BID [facility] Last Admin: 05/21/17 09:07 Dose: 20 mg Tobramycin Sulfate (Tobrex Ophthalmic Solution -) 1 drop OS Q6HPO [facility] Last Admin: 09/02/16 06:19 Dose: 1 drop - Objective Vital Signs: Vital Signs Temperature 99.1 F 09/02/16 05:59 Pulse Rate 81 09/02/16 05:59 Respiratory Rate 20 09/02/16 05:59 Blood Pressure 164/67 09/02/16 05:59 O2 Sat by Pulse Oximetry (%) 97 09/01/16 20:46 Constitutional: Yes: No Distress, Calm, Obese Eyes: Yes: Conjunctiva Clear, EOM Intact, PERRL HENT: Yes: Atraumatic, Normocephalic Neck: Yes: Supple, Trachea Midline Cardiovascular: Yes: Regular Rate and Rhythm, S1, S2. No: Bradycardia, Tachycardia, Pulse Irregular, Bruit, JVD, Gallop, Murmur, Rub, S3, S4, Varicosities Respiratory: Yes: Regular, CTA Bilaterally. No: Rales, Rhonchi, Wheezes Gastrointestinal: Yes: Normal Bowel Sounds, Soft. No: Distention, Tenderness Musculoskeletal: Yes: WNL Extremities: Yes: WNL Edema: LLE: Trace, RLE: Trace Peripheral Pulses WNL: Yes Peripheral Pulses: Left Doralis Pedis: 2+, Right Dorsalis Pedis: 2+ Integumentary: Yes: WNL Neurological: Yes: Alert, Oriented Psychiatric: Yes: Alert, Oriented Labs: CBC, BMP 08/31/16 05:35 08/31/16 05:35 INR, PTT INR 0.96 (0.82-1.09) 08/30/16 11:32 - ....Imaging Chest X-ray: Report Reviewed, Image Reviewed EKG: Report Reviewed, Image Reviewed Other: Report Reviewed, Image Reviewed (tele-nsr, apcs) Assessment/Plan 66 year old woman with a history of HTN, HLD, DMII, obesity, h/o PE, metastatic cervical CA, Asthma home O2, admitted with cough, chest pain. Coughing with Chest pain-after coughing, unlikely ACS, low grade fever overnight -cardiac enzymes wnl -echo showed normal LV systolic function, mild valvular abnl -no events recorded on telemetry -no DVT on doppler yesterday -cont ASA, Lasix, Losartan -no additional planned ischemic work up at this point -being tx for asthma exacerbation -ok to dc tele HTN-adequately controlled -cont current meds for now H/o PE -clarify history and treatment plan
[2016-09-02] MEDS: MONTELUKAST NA 10 MG TABLET PO SCH (21:17)
[2016-09-02] MEDS: ALBUTEROL SO4 2.5/IPRATROPIUM 0.5 INH SOL 3 ML VIAL.NEB. NEB PRN (22:25)
--- NOTE | 2016-09-02 23:21 | PN ---
Progress Note, Physician History of Present Illness: No new change - Current Medication List Current Medications: Active Medications Albuterol/Ipratropium (Duoneb -) 1 amp NEB Q6H PRN PRN Reason: SHORTNESS OF BREATH Last Admin: 09/02/16 22:25 Dose: 1 amp Alprazolam (Xanax -) 0.25 mg PO Q6H PRN PRN Reason: ANXIETY Last Admin: 09/02/16 20:42 Dose: 0.25 mg Aspirin (Asa -) 81 mg PO DAILY [facility] Last Admin: 09/02/16 09:04 Dose: 81 mg Furosemide (Lasix -) 20 mg PO DAILY [facility] Last Admin: 09/02/16 09:04 Dose: 20 mg Levofloxacin (Levaquin 500 Mg Premixed Ivpb -) 100 mls @ 100 mls/hr IVPB DAILY [facility] Last Admin: 09/02/16 09:04 Dose: 100 mls/hr Insulin Aspart (Novolog Vial) 15 units SQ TIDAC [facility] Last Admin: 09/02/16 16:24 Dose: 15 units Insulin Detemir (Levemir Vial) 25 units SQ BID@0700,2200 [facility] Last Admin: 09/02/16 21:17 Dose: 25 units Levothyroxine Sodium (Synthroid -) 100 mcg PO DAILY@0700 [facility] Last Admin: 09/02/16 06:18 Dose: 100 mcg Losartan Potassium (Cozaar -) 50 mg PO BID [facility] Last Admin: 09/02/16 21:17 Dose: 50 mg Methylprednisolone Sodium Succinate (Solu-Medrol -) 40 mg IVPB Q8H-IV [facility] Last Admin: 09/02/16 17:11 Dose: 40 mg Montelukast Sodium (Singulair -) 10 mg PO HS [facility] Last Admin: 09/02/16 21:17 Dose: 10 mg Nystatin (Nystop Powder -) 1 applic TP BID [facility] Last Admin: 09/02/16 21:20 Dose: 1 applic Oxycodone HCl (Roxicodone -) 15 mg PO TID PRN PRN Reason: PAIN Last Admin: 09/02/16 21:19 Dose: 15 mg Tamoxifen Citrate (Tamoxifen Citrate) 20 mg PO BID [facility] Last Admin: 09/02/16 21:29 Dose: 20 mg Tobramycin Sulfate (Tobrex Ophthalmic Solution -) 1 drop OS Q6HPO [facility] Last Admin: 09/02/16 17:12 Dose: 1 drop - Objective Vital Signs: Vital Signs Temperature 99.3 F 09/02/16 21:53 Pulse Rate 73 09/02/16 21:53 Respiratory Rate 20 09/02/16 21:53 Blood Pressure 135/89 09/02/16 21:53 O2 Sat by Pulse Oximetry (%) 99 09/02/16 20:47 Constitutional: Yes: Well Nourished Eyes: Yes: WNL HENT: Yes: WNL Neck: Yes: WNL Cardiovascular: Yes: WNL Respiratory: Yes: Diminished, Wheezes Gastrointestinal: Yes: WNL, Normal Bowel Sounds, Soft, Abdomen, Obese Labs: CBC, BMP 08/31/16 05:35 08/31/16 05:35 INR, PTT INR 0.96 (0.82-1.09) 08/30/16 11:32 Assessment/Plan 1. Exacerbation COPD Cont IV steroids/antibxs Cont nebulizers Pulmonary consult 2. Metastatic breast cancer 3. HTN 4. Diabetes
[2016-09-03] MEDS: TOBRAMYCIN 0.3% OPHTH SOLN 5 ML BOTTLE OS SCH ×5 (00:03→23:45)
[2016-09-03] MEDS: methylPREDNISolone NA SUCC 40 MG/1 ML VIAL IVPB SCH ×4 (01:17→21:05)
[2016-09-03] MEDS: ALPRAZolam 0.25 MG TABLET PO PRN ×3 (05:55→18:52)
[2016-09-03] MEDS: oxyCODONE HCL 5 MG TABLET PO PRN ×3 (05:57→21:11)
[2016-09-03] MEDS: INSULIN DETEMIR 100 UNITS/ML MDV SQ SCH ×2 (06:44→21:11)
[2016-09-03] MEDS: LEVOTHYROXINE NA 100 MCG TABLET (FP) PO SCH (06:44)
[2016-09-03] MEDS: INSULIN (NOVOLOG) ASPART 100 UNITS/ML 10ML VIAL SQ SCH ×3 (06:45→16:43)
[2016-09-03] MEDS: TAMOXIFEN CITRATE 10 MG TABLET PO SCH ×2 (10:01→21:07)
[2016-09-03] MEDS: FUROSEMIDE 20 MG TABLET (FP) PO SCH (10:01)
[2016-09-03] MEDS: ASPIRIN 81 MG CHEWABLE TABLETS PO SCH (10:01)
[2016-09-03] MEDS: LEVOFLOXACIN 500 MG IVPB 100 ML IVPB SCH (10:02)
[2016-09-03] MEDS: LOSARTAN POTASSIUM 50 MG TABLET (FP) PO SCH ×2 (10:02→21:05)
[2016-09-03] MEDS: NYSTATIN POWDER 100,000 UNITS/GM - 15 GM TOPICAL POWDER TP SCH ×2 (10:03→21:05)
--- NOTE | 2016-09-03 12:17 | PN ---
Progress Note, Physician History of Present Illness: PULMONARY ALERT,-RESP DISTRESS,LESS CONGESTED - Current Medication List Current Medications: Active Medications Albuterol/Ipratropium (Duoneb -) 1 amp NEB Q6H PRN PRN Reason: SHORTNESS OF BREATH Last Admin: 09/02/16 22:25 Dose: 1 amp Alprazolam (Xanax -) 0.25 mg PO Q6H PRN PRN Reason: ANXIETY Last Admin: 09/03/16 05:55 Dose: 0.25 mg Aspirin (Asa -) 81 mg PO DAILY [facility] Last Admin: 09/03/16 10:01 Dose: 81 mg Docusate Sodium (Colace -) 300 mg PO DAILY [facility] Furosemide (Lasix -) 20 mg PO DAILY [facility] Last Admin: 09/03/16 10:01 Dose: 20 mg Levofloxacin (Levaquin 500 Mg Premixed Ivpb -) 100 mls @ 100 mls/hr IVPB DAILY [facility] Last Admin: 09/03/16 10:02 Dose: 100 mls/hr Insulin Aspart (Novolog Vial) 15 units SQ TIDAC [facility] Last Admin: 09/03/16 06:45 Dose: 15 units Insulin Detemir (Levemir Vial) 25 units SQ BID@0700,2200 [facility] Last Admin: 09/03/16 06:44 Dose: 25 units Levothyroxine Sodium (Synthroid -) 100 mcg PO DAILY@0700 [facility] Last Admin: 09/03/16 06:44 Dose: 100 mcg Losartan Potassium (Cozaar -) 50 mg PO BID [facility] Last Admin: 09/03/16 10:02 Dose: 50 mg Methylprednisolone Sodium Succinate (Solu-Medrol -) 40 mg IVPB Q8H-IV [facility] Last Admin: 09/03/16 10:01 Dose: 40 mg Montelukast Sodium (Singulair -) 10 mg PO HS [facility] Last Admin: 09/02/16 21:17 Dose: 10 mg Nystatin (Nystop Powder -) 1 applic TP BID [facility] Last Admin: 09/03/16 10:03 Dose: 1 applic Oxycodone HCl (Roxicodone -) 15 mg PO TID PRN PRN Reason: PAIN Last Admin: 09/03/16 05:57 Dose: 15 mg Polyethylene Glycol (Miralax (For Daily Use) -) 17 gm PO DAILY [facility] Tamoxifen Citrate (Tamoxifen Citrate) 20 mg PO BID [facility] Last Admin: 09/03/16 10:01 Dose: 20 mg Tobramycin Sulfate (Tobrex Ophthalmic Solution -) 1 drop OS Q6HPO [facility] Last Admin: 09/03/16 05:54 Dose: 1 drop - Objective Vital Signs: Vital Signs Temperature 98.5 F 09/03/16 08:05 Pulse Rate 88 09/03/16 08:05 Respiratory Rate 16 09/03/16 08:05 Blood Pressure 156/70 09/03/16 08:05 O2 Sat by Pulse Oximetry (%) 99 09/02/16 20:47 Constitutional: Yes: Well Nourished, Calm Eyes: Yes: WNL HENT: Yes: WNL Neck: Yes: WNL Cardiovascular: Yes: Regular Rate and Rhythm, S1, S2 Respiratory: Yes: Wheezes (FEW SCATTERED WHEEZES) Gastrointestinal: Yes: Normal Bowel Sounds, Soft Extremities: Yes: WNL Edema: No Problem List - Problems (1) Acute asthma exacerbation Code(s): J45.901 - UNSPECIFIED ASTHMA WITH (ACUTE) EXACERBATION (2) Chest pain Code(s): R07.9 - CHEST PAIN, UNSPECIFIED Qualifiers: Chest pain type: unspecified Qualified Code(s): R07.9 - Chest pain, unspecified (3) Primary cervical cancer with metastasis to other site Code(s): C53.9 - MALIGNANT NEOPLASM OF CERVIX UTERI, UNSPECIFIED C79.9 - SECONDARY MALIGNANT NEOPLASM OF UNSPECIFIED SITE (4) Pulmonary emboli Code(s): I26.99 - OTHER PULMONARY EMBOLISM WITHOUT ACUTE COR PULMONALE (5) Cervical cancer Code(s): C53.9 - MALIGNANT NEOPLASM OF CERVIX UTERI, UNSPECIFIED (6) Fever Code(s): R50.9 - FEVER, UNSPECIFIED (7) Metastasis to lung Code(s): C78.00 - SECONDARY MALIGNANT NEOPLASM OF UNSPECIFIED LUNG (8) Metastatic disease Code(s): C79.9 - SECONDARY MALIGNANT NEOPLASM OF UNSPECIFIED SITE (9) Steroid dependence Code(s): [id number] - (10) Type 2 diabetes mellitus with hyperosmolarity without nonketotic hyperglycemic-hyperosmolar coma ([facility]) Code(s): E11.00 - TYPE 2 DIAB W HYPROSM W/O NONKET HYPRGLY-HYPROS COMA ([facility]) (11) Chronic steroid use Code(s): [id number] - (12) Hyperlipidemia Code(s): E78.5 - HYPERLIPIDEMIA, UNSPECIFIED Qualifiers: Hyperlipidemia type: unspecified Qualified Code(s): E78.5 - Hyperlipidemia, unspecified (13) Hypertension Code(s): I10 - ESSENTIAL (PRIMARY) HYPERTENSION Qualifiers: Hypertension type: essential hypertension Qualified Code(s): I10 - Essential (primary) hypertension (14) Hypothyroidism Code(s): E03.9 - HYPOTHYROIDISM, UNSPECIFIED Qualifiers: Hypothyroidism type: unspecified Qualified Code(s): E03.9 - Hypothyroidism, unspecified (15) Chronic hypoxemic respiratory failure Code(s): J96.11 - CHRONIC RESPIRATORY FAILURE WITH HYPOXIA Assessment/Plan IMP CERVICAL CA WITH LUNG METS CHRONIC HYPOXEMIC RESPIRATORY FAILURE ASTHMA CHEST PAIN SYNDROME IMPROVED URI HYPOTHYROID H/O PE HLD FEVER PLAN NASAL O2 INHALED BRONCHODILATORS TAPER MEDROL DR CELAYA Problem List - Problems (1) Acute asthma exacerbation Code(s): J45.901 - UNSPECIFIED ASTHMA WITH (ACUTE) EXACERBATION (2) Chest pain Code(s): R07.9 - CHEST PAIN, UNSPECIFIED Qualifiers: Chest pain type: unspecified Qualified Code(s): R07.9 - Chest pain, unspecified (3) Primary cervical cancer with metastasis to other site Code(s): C53.9 - MALIGNANT NEOPLASM OF CERVIX UTERI, UNSPECIFIED C79.9 - SECONDARY MALIGNANT NEOPLASM OF UNSPECIFIED SITE (4) Pulmonary emboli Code(s): I26.99 - OTHER PULMONARY EMBOLISM WITHOUT ACUTE COR PULMONALE (5) Cervical cancer Code(s): C53.9 - MALIGNANT NEOPLASM OF CERVIX UTERI, UNSPECIFIED (6) Fever Code(s): R50.9 - FEVER, UNSPECIFIED (7) Metastasis to lung Code(s): C78.00 - SECONDARY MALIGNANT NEOPLASM OF UNSPECIFIED LUNG (8) Metastatic disease Code(s): C79.9 - SECONDARY MALIGNANT NEOPLASM OF UNSPECIFIED SITE (9) Steroid dependence Code(s): [id number] - (10) Type 2 diabetes mellitus with hyperosmolarity without nonketotic hyperglycemic-hyperosmolar coma ([facility]) Code(s): E11.00 - TYPE 2 DIAB W HYPROSM W/O NONKET HYPRGLY-HYPROS COMA ([facility]) (11) Chronic steroid use Code(s): [id number] - (12) Hyperlipidemia Code(s): E78.5 - HYPERLIPIDEMIA, UNSPECIFIED Qualifiers: Hyperlipidemia type: unspecified Qualified Code(s): E78.5 - Hyperlipidemia, unspecified (13) Hypertension Code(s): I10 - ESSENTIAL (PRIMARY) HYPERTENSION Qualifiers: Hypertension type: essential hypertension Qualified Code(s): I10 - Essential (primary) hypertension (14) Hypothyroidism Code(s): E03.9 - HYPOTHYROIDISM, UNSPECIFIED Qualifiers: Hypothyroidism type: unspecified Qualified Code(s): E03.9 - Hypothyroidism, unspecified (15) Chronic hypoxemic respiratory failure Code(s): J96.11 - CHRONIC RESPIRATORY FAILURE WITH HYPOXIA
[2016-09-03] MEDS: DOCUSATE SODIUM 100 MG CAPSULE (FP) PO SCH (12:49)
[2016-09-03] MEDS: POLYETHYLENE GLYCOL 3350 119 GM BTL PO SCH (12:55)
--- NOTE | 2016-09-03 14:42 | PN ---
Progress Note, Physician - Current Medication List Current Medications: Active Medications Albuterol/Ipratropium (Duoneb -) 1 amp NEB Q6H PRN PRN Reason: SHORTNESS OF BREATH Last Admin: 09/02/16 22:25 Dose: 1 amp Alprazolam (Xanax -) 0.25 mg PO Q6H PRN PRN Reason: ANXIETY Last Admin: 09/03/16 12:50 Dose: 0.25 mg Aspirin (Asa -) 81 mg PO DAILY [facility] Last Admin: 09/03/16 10:01 Dose: 81 mg Docusate Sodium (Colace -) 300 mg PO DAILY [facility] Last Admin: 09/03/16 12:49 Dose: 300 mg Furosemide (Lasix -) 20 mg PO DAILY [facility] Last Admin: 09/03/16 10:01 Dose: 20 mg Levofloxacin (Levaquin 500 Mg Premixed Ivpb -) 100 mls @ 100 mls/hr IVPB DAILY [facility] Last Admin: 09/03/16 10:02 Dose: 100 mls/hr Insulin Aspart (Novolog Vial) 15 units SQ TIDAC [facility] Last Admin: 09/03/16 12:49 Dose: 15 units Insulin Detemir (Levemir Vial) 25 units SQ BID@0700,2200 [facility] Last Admin: 09/03/16 06:44 Dose: 25 units Levothyroxine Sodium (Synthroid -) 100 mcg PO DAILY@0700 [facility] Last Admin: 09/03/16 06:44 Dose: 100 mcg Losartan Potassium (Cozaar -) 50 mg PO BID [facility] Last Admin: 09/03/16 10:02 Dose: 50 mg Methylprednisolone Sodium Succinate (Solu-Medrol -) 40 mg IVPB BID [facility] Last Admin: 09/03/16 12:47 Dose: Not Given Montelukast Sodium (Singulair -) 10 mg PO HS [facility] Last Admin: 09/02/16 21:17 Dose: 10 mg Nystatin (Nystop Powder -) 1 applic TP BID [facility] Last Admin: 09/03/16 10:03 Dose: 1 applic Oxycodone HCl (Roxicodone -) 15 mg PO TID PRN PRN Reason: PAIN Last Admin: 09/03/16 05:57 Dose: 15 mg Polyethylene Glycol (Miralax (For Daily Use) -) 17 gm PO DAILY [facility] Last Admin: 09/03/16 12:55 Dose: Not Given Tamoxifen Citrate (Tamoxifen Citrate) 20 mg PO BID [facility] Last Admin: 09/03/16 10:01 Dose: 20 mg Tobramycin Sulfate (Tobrex Ophthalmic Solution -) 1 drop OS Q6HPO [facility] Last Admin: 09/03/16 13:11 Dose: 1 drop - Objective Vital Signs: Vital Signs Temperature 98.5 F 09/03/16 08:05 Pulse Rate 88 09/03/16 08:05 Respiratory Rate 16 09/03/16 08:05 Blood Pressure 156/70 09/03/16 08:05 O2 Sat by Pulse Oximetry (%) 96 09/03/16 09:00 Eyes: Yes: WNL, Conjunctiva Clear, EOM Intact HENT: Yes: WNL, Atraumatic, Normocephalic Neck: Yes: WNL, Supple, Trachea Midline Cardiovascular: Yes: WNL, Regular Rate and Rhythm Respiratory: Yes: WNL, Regular, CTA Bilaterally Gastrointestinal: Yes: WNL, Normal Bowel Sounds Genitourinary: Yes: WNL Musculoskeletal: Yes: WNL Extremities: Yes: WNL Edema: No Integumentary: Yes: WNL Neurological: Yes: WNL, Alert, Oriented ...Motor Strength: WNL Psychiatric: Yes: WNL Labs: CBC, BMP 08/31/16 05:35 08/31/16 05:35 INR, PTT INR 0.96 (0.82-1.09) 08/30/16 11:32 Assessment/Plan 66 year old woman with a history of HTN, HLD, DMII, obesity, h/o PE, metastatic cervical CA, Asthma home O2, admitted with cough, chest pain. Coughing with Chest pain-after coughing, unlikely ACS, low grade fever overnight -cardiac enzymes wnl -echo showed normal LV systolic function, mild valvular abnl -no events recorded on telemetry -no DVT on doppler yesterday -cont ASA, Lasix, Losartan -no additional planned ischemic work up at this point -being tx for asthma exacerbation -ok to dc tele HTN-adequately controlled -cont current meds for now H/o PE -clarify history and treatment plan
--- NOTE | 2016-09-03 20:50 | PN ---
Progress Note, Physician History of Present Illness: Pt is constipated - Current Medication List Current Medications: Active Medications Albuterol/Ipratropium (Duoneb -) 1 amp NEB Q6H PRN PRN Reason: SHORTNESS OF BREATH Last Admin: 09/02/16 22:25 Dose: 1 amp Alprazolam (Xanax -) 0.25 mg PO Q6H PRN PRN Reason: ANXIETY Last Admin: 09/03/16 18:52 Dose: 0.25 mg Aspirin (Asa -) 81 mg PO DAILY [facility] Last Admin: 09/03/16 10:01 Dose: 81 mg Docusate Sodium (Colace -) 300 mg PO DAILY [facility] Last Admin: 09/03/16 12:49 Dose: 300 mg Furosemide (Lasix -) 20 mg PO DAILY [facility] Last Admin: 09/03/16 10:01 Dose: 20 mg Levofloxacin (Levaquin 500 Mg Premixed Ivpb -) 100 mls @ 100 mls/hr IVPB DAILY [facility] Last Admin: 09/03/16 10:02 Dose: 100 mls/hr Insulin Aspart (Novolog Vial) 15 units SQ TIDAC [facility] Last Admin: 09/03/16 16:43 Dose: 15 units Insulin Detemir (Levemir Vial) 25 units SQ BID@0700,2200 [facility] Last Admin: 09/03/16 06:44 Dose: 25 units Levothyroxine Sodium (Synthroid -) 100 mcg PO DAILY@0700 [facility] Last Admin: 09/03/16 06:44 Dose: 100 mcg Losartan Potassium (Cozaar -) 50 mg PO BID [facility] Last Admin: 09/03/16 10:02 Dose: 50 mg Methylprednisolone Sodium Succinate (Solu-Medrol -) 40 mg IVPB BID [facility] Last Admin: 09/03/16 12:47 Dose: Not Given Montelukast Sodium (Singulair -) 10 mg PO HS [facility] Last Admin: 09/02/16 21:17 Dose: 10 mg Nystatin (Nystop Powder -) 1 applic TP BID [facility] Last Admin: 09/03/16 10:03 Dose: 1 applic Oxycodone HCl (Roxicodone -) 15 mg PO TID PRN PRN Reason: PAIN Last Admin: 09/03/16 14:45 Dose: 15 mg Polyethylene Glycol (Miralax (For Daily Use) -) 17 gm PO DAILY [facility] Last Admin: 09/03/16 12:55 Dose: Not Given Tamoxifen Citrate (Tamoxifen Citrate) 20 mg PO BID [facility] Last Admin: 09/03/16 10:01 Dose: 20 mg Tobramycin Sulfate (Tobrex Ophthalmic Solution -) 1 drop OS Q6HPO [facility] Last Admin: 09/03/16 18:13 Dose: 1 drop - Objective Vital Signs: Vital Signs Temperature 98.8 F 09/03/16 17:00 Pulse Rate 81 09/03/16 17:00 Respiratory Rate 18 09/03/16 17:00 Blood Pressure 135/68 09/03/16 17:00 O2 Sat by Pulse Oximetry (%) 96 09/03/16 09:00 Constitutional: Yes: Well Nourished Eyes: Yes: WNL HENT: Yes: WNL Neck: Yes: Supple Cardiovascular: Yes: WNL, Regular Rate and Rhythm Respiratory: Yes: Diminished Gastrointestinal: Yes: Normal Bowel Sounds, Soft, Abdomen, Obese Labs: CBC, BMP 08/31/16 05:35 08/31/16 05:35 INR, PTT INR 0.96 (0.82-1.09) 08/30/16 11:32 Problem List - Problems (1) Acute asthma exacerbation Assessment/Plan: Pt still requiring IV solumedrol Cont nebulizers/inhalers Code(s): J45.901 - UNSPECIFIED ASTHMA WITH (ACUTE) EXACERBATION (2) Chest pain Code(s): R07.9 - CHEST PAIN, UNSPECIFIED Qualifiers: Chest pain type: unspecified Qualified Code(s): R07.9 - Chest pain, unspecified (3) Obesity Code(s): E66.9 - OBESITY, UNSPECIFIED (4) Anxiety Code(s): F41.9 - ANXIETY DISORDER, UNSPECIFIED (5) Diabetes Code(s): E11.9 - TYPE 2 DIABETES MELLITUS WITHOUT COMPLICATIONS Qualifiers: Diabetes mellitus type: type 2 Diabetes mellitus complication status: without complication (6) History of DVT of lower extremity Code(s): Z86.718 - PERSONAL HISTORY OF OTHER VENOUS THROMBOSIS AND EMBOLISM (7) Hyperlipidemia Code(s): E78.5 - HYPERLIPIDEMIA, UNSPECIFIED Qualifiers: Hyperlipidemia type: unspecified Qualified Code(s): E78.5 - Hyperlipidemia, unspecified (8) Hypertension Code(s): I10 - ESSENTIAL (PRIMARY) HYPERTENSION Qualifiers: Hypertension type: essential hypertension Qualified Code(s): I10 - Essential (primary) hypertension (9) Hypothyroidism Code(s): E03.9 - HYPOTHYROIDISM, UNSPECIFIED Qualifiers: Hypothyroidism type: unspecified Qualified Code(s): E03.9 - Hypothyroidism, unspecified
[2016-09-03] MEDS: MONTELUKAST NA 10 MG TABLET PO SCH (21:05)
[2016-09-03] MEDS ORDERED: PT OWN MED DRAWER 7, Y5N ONE (21:06)
[2016-09-04] MEDS: ALPRAZolam 0.25 MG TABLET PO PRN ×4 (02:01→23:21)
[2016-09-04] MEDS: LEVOTHYROXINE NA 100 MCG TABLET (FP) PO SCH (06:09)
[2016-09-04] MEDS: oxyCODONE HCL 5 MG TABLET PO PRN ×3 (06:10→23:21)
[2016-09-04] MEDS: TOBRAMYCIN 0.3% OPHTH SOLN 5 ML BOTTLE OS SCH ×4 (06:11→23:21)
[2016-09-04] MEDS: INSULIN DETEMIR 100 UNITS/ML MDV SQ SCH ×2 (06:12→21:23)
[2016-09-04] MEDS: INSULIN (NOVOLOG) ASPART 100 UNITS/ML 10ML VIAL SQ SCH ×3 (06:15→17:17)
[2016-09-04 07:13] LABS: BASOPHIL 0.3 % (0-2.0); MCH 26.1 pg (25.7-33.7); MEAN CELL VOLUME 79.2 fl (80-96); MEAN PLT VOLUME 8.9 fl (7.5-11.1); NEUTROPHILS 81.7 % (42.8-82.8); PLATELET COUNT 252 K/MM3 (134-434); RDW 16.3 % (11.6-15.6); WHITE BLOOD COUNT 17.2 K/mm3 (4.0-10.0)
[2016-09-04 08:40] LABS: ALBUMIN 3.2 g/dl (3.4-5.0); BILIRUBIN,TOTAL 0.3 mg/dL (0.2-1.0); CALCIUM 8.9 mg/dL (8.5-10.1); COCKROFT - GAULT 63.5885; CREATININE 1.2 mg/dL (0.55-1.02); TOT PROT 6.7 g/dl (6.4-8.2)
[2016-09-04] MEDS ORDERED: PT OWN MED DRAWER 7, Y5N ONE ×3 (10:00→21:19)
[2016-09-04] MEDS: ASPIRIN 81 MG CHEWABLE TABLETS PO SCH (10:05)
[2016-09-04] MEDS: POLYETHYLENE GLYCOL 3350 119 GM BTL PO SCH (10:06)
[2016-09-04] MEDS: LOSARTAN POTASSIUM 50 MG TABLET (FP) PO SCH ×2 (10:06→21:08)
[2016-09-04] MEDS: FUROSEMIDE 20 MG TABLET (FP) PO SCH (10:06)
[2016-09-04] MEDS: DOCUSATE SODIUM 100 MG CAPSULE (FP) PO SCH (10:06)
[2016-09-04] MEDS: methylPREDNISolone NA SUCC 40 MG/1 ML VIAL IVPB SCH ×2 (10:07→21:20)
[2016-09-04] MEDS: NYSTATIN POWDER 100,000 UNITS/GM - 15 GM TOPICAL POWDER TP SCH ×2 (10:07→21:09)
[2016-09-04] MEDS: TAMOXIFEN CITRATE 10 MG TABLET PO SCH ×2 (10:08→21:18)
[2016-09-04] MEDS: LEVOFLOXACIN 500 MG IVPB 100 ML IVPB SCH (10:51)
--- NOTE | 2016-09-04 11:34 | PN ---
Progress Note (short form) - Note Progress Note: PULMONARY Breathing better today. +cough with white sputum and wheezing. No fevers or chills. Last Vital Signs Temp Pulse Resp BP Pulse Ox 99.9 F H 86 18 147/65 96 09/04/16 09:19 09/04/16 09:19 09/04/16 09:19 09/04/16 09:19 09/03/16 21:00 Gen: NAD at rest Heart: RRR Lung: distant breath sounds, no wheezes appreciated Abd: soft, nontender Ext: no edema CBC, BMP 09/04/16 06:30 09/04/16 06:30 Active Medications Albuterol/Ipratropium (Duoneb -) 1 amp NEB Q6H PRN PRN Reason: SHORTNESS OF BREATH Last Admin: 09/02/16 22:25 Dose: 1 amp Alprazolam (Xanax -) 0.25 mg PO Q6H PRN PRN Reason: ANXIETY Last Admin: 09/04/16 10:07 Dose: 0.25 mg Aspirin (Asa -) 81 mg PO DAILY [facility] Last Admin: 09/04/16 10:05 Dose: 81 mg Docusate Sodium (Colace -) 300 mg PO DAILY [facility] Last Admin: 09/04/16 10:06 Dose: 300 mg Furosemide (Lasix -) 20 mg PO DAILY [facility] Last Admin: 09/04/16 10:06 Dose: 20 mg Levofloxacin (Levaquin 500 Mg Premixed Ivpb -) 100 mls @ 100 mls/hr IVPB DAILY [facility] Last Admin: 09/04/16 10:51 Dose: 100 mls/hr Insulin Aspart (Novolog Vial) 15 units SQ TIDAC [facility] Last Admin: 09/04/16 11:20 Dose: 15 units Insulin Detemir (Levemir Vial) 25 units SQ BID@0700,2200 [facility] Last Admin: 09/04/16 06:12 Dose: 25 units Levothyroxine Sodium (Synthroid -) 100 mcg PO DAILY@0700 [facility] Last Admin: 09/04/16 06:09 Dose: 100 mcg Losartan Potassium (Cozaar -) 50 mg PO BID [facility] Last Admin: 09/04/16 10:06 Dose: 50 mg Methylprednisolone Sodium Succinate (Solu-Medrol -) 40 mg IVPB BID [facility] Last Admin: 09/04/16 10:07 Dose: 40 mg Montelukast Sodium (Singulair -) 10 mg PO HS [facility] Last Admin: 09/03/16 21:05 Dose: 10 mg Nystatin (Nystop Powder -) 1 applic TP BID [facility] Last Admin: 09/04/16 10:07 Dose: 1 applic Oxycodone HCl (Roxicodone -) 15 mg PO TID PRN PRN Reason: PAIN Last Admin: 09/04/16 06:10 Dose: 15 mg Polyethylene Glycol (Miralax (For Daily Use) -) 17 gm PO DAILY [facility] Last Admin: 09/04/16 10:06 Dose: 17 gm Tamoxifen Citrate (Tamoxifen Citrate) 20 mg PO BID [facility] Last Admin: 09/04/16 10:08 Dose: 20 mg Tobramycin Sulfate (Tobrex Ophthalmic Solution -) 1 drop OS Q6HPO [facility] Last Admin: 09/04/16 11:20 Dose: 1 drop A/P Acute Asthma Exacerbation Chronic Hypoxic Respiratory Failure Cervical Cancer with Lung Metastases Hypothyroid h/o PE - can decrease medrol in AM - inhaled bronchodilators - O2 to keep SpO2 >90% - singulair - on empiric antibiotics - DVT prophylaxis
--- NOTE | 2016-09-04 16:30 | PN ---
Progress Note, Physician Chief Complaint: Pt A&Ox3; feels "much better than when I was admitted"; asymptomatic, though still dyspneic with mild exertion. History of Present Illness: 66-year-old female (iveth. Everardo Neal) presents to the ED with complaints of worsening cough, congestion, now with left-sided chest pain that she describes an aching dull sensation that radiates to her left neck and left upper arm (on further questioning, pt says the chest pain only began after she had been coughing for several days, and is related to forceful coughing; the cough and chest pain have lessened over the past 48 hours). Patient also complaining of lower extremity edema and epigastric cramping. Patient denies fever, chills, productive cough, throat pain, headache, dizziness, nausea, diarrhea, change in urine output, or rash. Patient history of asthma, PE, cervical CA with metastases to lungs, diabetes, anxiety, hyperlipidemia, hypertension, hypothyroidism, obesity. Patient also is on oxygen 3 L nasal cannula at home ( denies hx cigarettes, but grew up with her mother smoking in the house). Presenting Symptoms: Abdominal Pain, Chest Pain, Short of Breath Timing/Duration: reports: constant Severity/Quality: reports: moderate, aching Location: reports: substernal Chest Pain Radiation: reports: no radiation Activities at Onset: reports: none Prior Chest Pain/Cardiac Workup: reports: Echocardiography Nitro Today/Relief: Yes: no nitro taken today Aspirin Received prior to arrival (Core Measure): Yes: no aspirin today, 81 mg x 2 (given in the ED) Associated Symptoms: Yes: Abdominal pain, Cough, Chest Pain/pressure - Current Medication List Current Medications: Active Medications Albuterol/Ipratropium (Duoneb -) 1 amp NEB Q6H PRN PRN Reason: SHORTNESS OF BREATH Last Admin: 09/02/16 22:25 Dose: 1 amp Alprazolam (Xanax -) 0.25 mg PO Q6H PRN PRN Reason: ANXIETY Last Admin: 09/04/16 10:07 Dose: 0.25 mg Aspirin (Asa -) 81 mg PO DAILY [facility] Last Admin: 09/04/16 10:05 Dose: 81 mg Docusate Sodium (Colace -) 300 mg PO DAILY [facility] Last Admin: 09/04/16 10:06 Dose: 300 mg Furosemide (Lasix -) 20 mg PO DAILY [facility] Last Admin: 09/04/16 10:06 Dose: 20 mg Levofloxacin (Levaquin 500 Mg Premixed Ivpb -) 100 mls @ 100 mls/hr IVPB DAILY [facility] Last Admin: 09/04/16 10:51 Dose: 100 mls/hr Insulin Aspart (Novolog Vial) 15 units SQ TIDAC [facility] Last Admin: 09/04/16 11:20 Dose: 15 units Insulin Detemir (Levemir Vial) 25 units SQ BID@0700,2200 [facility] Last Admin: 09/04/16 06:12 Dose: 25 units Levothyroxine Sodium (Synthroid -) 100 mcg PO DAILY@0700 [facility] Last Admin: 09/04/16 06:09 Dose: 100 mcg Losartan Potassium (Cozaar -) 50 mg PO BID [facility] Last Admin: 09/04/16 10:06 Dose: 50 mg Methylprednisolone Sodium Succinate (Solu-Medrol -) 40 mg IVPB BID [facility] Last Admin: 09/04/16 10:07 Dose: 40 mg Montelukast Sodium (Singulair -) 10 mg PO HS [facility] Last Admin: 09/03/16 21:05 Dose: 10 mg Nystatin (Nystop Powder -) 1 applic TP BID [facility] Last Admin: 09/04/16 10:07 Dose: 1 applic Oxycodone HCl (Roxicodone -) 15 mg PO TID PRN PRN Reason: PAIN Last Admin: 09/04/16 15:25 Dose: 15 mg Polyethylene Glycol (Miralax (For Daily Use) -) 17 gm PO DAILY [facility] Last Admin: 09/04/16 10:06 Dose: 17 gm Tamoxifen Citrate (Tamoxifen Citrate) 20 mg PO BID [facility] Last Admin: 09/04/16 10:08 Dose: 20 mg Tobramycin Sulfate (Tobrex Ophthalmic Solution -) 1 drop OS Q6HPO [facility] Last Admin: 09/04/16 11:20 Dose: 1 drop - Objective Vital Signs: Vital Signs Temperature 98.4 F 09/04/16 14:47 Pulse Rate 92 H 09/04/16 14:47 Respiratory Rate 22 09/04/16 14:47 Blood Pressure 122/62 09/04/16 14:47 O2 Sat by Pulse Oximetry (%) 96 09/03/16 21:00 Constitutional: Yes: Calm Eyes: Yes: WNL HENT: Yes: WNL, Other (likely steroid induced "alvarado face") Neck: Yes: WNL Cardiovascular: Yes: Regular Rate and Rhythm Respiratory: Yes: Diminished, SOB on Exertion Gastrointestinal: Yes: Soft ...Rectal Exam: Yes: Deferred Genitourinary: No: Anuria Breast(s): Yes: WNL Musculoskeletal: Yes: Muscle Weakness Extremities: Yes: Cool Edema: No Peripheral Pulses WNL: Yes Integumentary: Yes: WNL Neurological: Yes: Alert, Oriented, Weakness Labs: CBC, BMP 09/04/16 06:30 09/04/16 06:30 INR, PTT INR 0.96 (0.82-1.09) 08/30/16 11:32 Problem List - Problems (1) Pulmonary emboli Assessment/Plan: hx left fem-supplemental manager bypass. LE doppler: no DVT. Code(s): I26.99 - OTHER PULMONARY EMBOLISM WITHOUT ACUTE COR PULMONALE (2) Cervical cancer Assessment/Plan: with metastases to lungs. Code(s): C53.9 - MALIGNANT NEOPLASM OF CERVIX UTERI, UNSPECIFIED (3) Primary cervical cancer with metastasis to other site Assessment/Plan: ECHO: normal LVEF; abnormal diastolic complance; Mild AZ, TR, MR; mild pulmonary HTN; no pericardial effusion. Code(s): C53.9 - MALIGNANT NEOPLASM OF CERVIX UTERI, UNSPECIFIED C79.9 - SECONDARY MALIGNANT NEOPLASM OF UNSPECIFIED SITE (4) Hypertension Assessment/Plan: On ARB. On furosemide (avoid dehydration). Code(s): I10 - ESSENTIAL (PRIMARY) HYPERTENSION Qualifiers: Hypertension type: essential hypertension Qualified Code(s): I10 - Essential (primary) hypertension (5) Hypothyroidism Assessment/Plan: on synthroid; TSH WNL. Code(s): E03.9 - HYPOTHYROIDISM, UNSPECIFIED Qualifiers: Hypothyroidism type: unspecified Qualified Code(s): E03.9 - Hypothyroidism, unspecified (6) Diabetes Code(s): E11.9 - TYPE 2 DIABETES MELLITUS WITHOUT COMPLICATIONS Qualifiers: Diabetes mellitus type: type 2 Diabetes mellitus complication status: without complication (7) Atypical chest pain Assessment/Plan: Pt says the chest pain only occurs after bout of prolonged coughing. TNI < 0.02 x 3. TSH WNL. ECHO: normal LVEF; mild AZ, MR, TR. Given pt's advanced cancer, would treat conservatively. Code(s): R07.89 - OTHER CHEST PAIN (8) Obesity Code(s): E66.9 - OBESITY, UNSPECIFIED
--- NOTE | 2016-09-04 19:06 | PN ---
Progress Note, Physician History of Present Illness: Pt feeling better - Current Medication List Current Medications: Active Medications Albuterol/Ipratropium (Duoneb -) 1 amp NEB Q6H PRN PRN Reason: SHORTNESS OF BREATH Last Admin: 09/02/16 22:25 Dose: 1 amp Alprazolam (Xanax -) 0.25 mg PO Q6H PRN PRN Reason: ANXIETY Last Admin: 09/04/16 17:17 Dose: 0.25 mg Aspirin (Asa -) 81 mg PO DAILY [facility] Last Admin: 09/04/16 10:05 Dose: 81 mg Docusate Sodium (Colace -) 300 mg PO DAILY [facility] Last Admin: 09/04/16 10:06 Dose: 300 mg Furosemide (Lasix -) 20 mg PO DAILY [facility] Last Admin: 09/04/16 10:06 Dose: 20 mg Levofloxacin (Levaquin 500 Mg Premixed Ivpb -) 100 mls @ 100 mls/hr IVPB DAILY [facility] Last Admin: 09/04/16 10:51 Dose: 100 mls/hr Insulin Aspart (Novolog Vial) 15 units SQ TIDAC [facility] Last Admin: 09/04/16 17:17 Dose: 15 units Insulin Detemir (Levemir Vial) 25 units SQ BID@0700,2200 [facility] Last Admin: 09/04/16 06:12 Dose: 25 units Levothyroxine Sodium (Synthroid -) 100 mcg PO DAILY@0700 [facility] Last Admin: 09/04/16 06:09 Dose: 100 mcg Losartan Potassium (Cozaar -) 50 mg PO BID [facility] Last Admin: 09/04/16 10:06 Dose: 50 mg Methylprednisolone Sodium Succinate (Solu-Medrol -) 40 mg IVPB BID [facility] Last Admin: 09/04/16 10:07 Dose: 40 mg Montelukast Sodium (Singulair -) 10 mg PO HS [facility] Last Admin: 09/03/16 21:05 Dose: 10 mg Nystatin (Nystop Powder -) 1 applic TP BID [facility] Last Admin: 09/04/16 10:07 Dose: 1 applic Oxycodone HCl (Roxicodone -) 15 mg PO TID PRN PRN Reason: PAIN Last Admin: 09/04/16 15:25 Dose: 15 mg Polyethylene Glycol (Miralax (For Daily Use) -) 17 gm PO DAILY [facility] Last Admin: 09/04/16 10:06 Dose: 17 gm Tamoxifen Citrate (Tamoxifen Citrate) 20 mg PO BID [facility] Last Admin: 09/04/16 10:08 Dose: 20 mg Tobramycin Sulfate (Tobrex Ophthalmic Solution -) 1 drop OS Q6HPO [facility] Last Admin: 09/04/16 17:17 Dose: 1 drop - Objective Vital Signs: Vital Signs Temperature 98.4 F 09/04/16 14:47 Pulse Rate 92 H 09/04/16 14:47 Respiratory Rate 22 09/04/16 14:47 Blood Pressure 122/62 09/04/16 14:47 O2 Sat by Pulse Oximetry (%) 96 09/03/16 21:00 Constitutional: Yes: Well Nourished Eyes: Yes: WNL HENT: Yes: WNL Neck: Yes: Supple Cardiovascular: Yes: WNL, Regular Rate and Rhythm Respiratory: Yes: WNL, Regular, CTA Bilaterally Gastrointestinal: Yes: WNL, Normal Bowel Sounds, Soft, Abdomen, Obese Labs: CBC, BMP 09/04/16 06:30 09/04/16 06:30 INR, PTT INR 0.96 (0.82-1.09) 08/30/16 11:32 Problem List - Problems (1) Acute asthma exacerbation Assessment/Plan: Pt still requiring IV solumedrol Cont nebulizers/inhalers Possible change to po in am Code(s): J45.901 - UNSPECIFIED ASTHMA WITH (ACUTE) EXACERBATION (2) Chest pain Code(s): R07.9 - CHEST PAIN, UNSPECIFIED Qualifiers: Chest pain type: unspecified Qualified Code(s): R07.9 - Chest pain, unspecified (3) Obesity Code(s): E66.9 - OBESITY, UNSPECIFIED (4) Anxiety Code(s): F41.9 - ANXIETY DISORDER, UNSPECIFIED (5) Diabetes Code(s): E11.9 - TYPE 2 DIABETES MELLITUS WITHOUT COMPLICATIONS Qualifiers: Diabetes mellitus type: type 2 Diabetes mellitus complication status: without complication (6) History of DVT of lower extremity Code(s): Z86.718 - PERSONAL HISTORY OF OTHER VENOUS THROMBOSIS AND EMBOLISM (7) Hyperlipidemia Code(s): E78.5 - HYPERLIPIDEMIA, UNSPECIFIED Qualifiers: Hyperlipidemia type: unspecified Qualified Code(s): E78.5 - Hyperlipidemia, unspecified (8) Hypertension Code(s): I10 - ESSENTIAL (PRIMARY) HYPERTENSION Qualifiers: Hypertension type: essential hypertension Qualified Code(s): I10 - Essential (primary) hypertension (9) Hypothyroidism Code(s): E03.9 - HYPOTHYROIDISM, UNSPECIFIED Qualifiers: Hypothyroidism type: unspecified Qualified Code(s): E03.9 - Hypothyroidism, unspecified
[2016-09-04] MEDS: MONTELUKAST NA 10 MG TABLET PO SCH (21:09)
[2016-09-04] MEDS: ALBUTEROL SO4 2.5/IPRATROPIUM 0.5 INH SOL 3 ML VIAL.NEB. NEB PRN (21:58)
[2016-09-05] MEDS: INSULIN (NOVOLOG) ASPART 100 UNITS/ML 10ML VIAL SQ SCH ×3 (06:15→17:29)
[2016-09-05] MEDS: ALPRAZolam 0.25 MG TABLET PO PRN ×3 (06:15→18:26)
[2016-09-05] MEDS: LEVOTHYROXINE NA 100 MCG TABLET (FP) PO SCH (06:15)
[2016-09-05] MEDS: INSULIN DETEMIR 100 UNITS/ML MDV SQ SCH ×2 (06:18→22:18)
[2016-09-05] MEDS: TOBRAMYCIN 0.3% OPHTH SOLN 5 ML BOTTLE OS SCH ×4 (06:20→23:33)
[2016-09-05] MEDS: DOCUSATE SODIUM 100 MG CAPSULE (FP) PO SCH (09:09)
[2016-09-05] MEDS: LOSARTAN POTASSIUM 50 MG TABLET (FP) PO SCH ×2 (09:10→22:14)
[2016-09-05] MEDS: ASPIRIN 81 MG CHEWABLE TABLETS PO SCH (09:10)
[2016-09-05] MEDS: oxyCODONE HCL 5 MG TABLET PO PRN ×2 (09:10→18:27)
[2016-09-05] MEDS: FUROSEMIDE 20 MG TABLET (FP) PO SCH (09:12)
[2016-09-05] MEDS: POLYETHYLENE GLYCOL 3350 119 GM BTL PO SCH (09:13)
[2016-09-05] MEDS: methylPREDNISolone NA SUCC 40 MG/1 ML VIAL IVPB SCH ×2 (09:14→22:14)
[2016-09-05] MEDS: LEVOFLOXACIN 500 MG IVPB 100 ML IVPB SCH (10:14)
[2016-09-05] MEDS: TAMOXIFEN CITRATE 10 MG TABLET PO SCH ×2 (10:15→22:15)
[2016-09-05] MEDS: NYSTATIN POWDER 100,000 UNITS/GM - 15 GM TOPICAL POWDER TP SCH ×2 (12:00→22:14)
--- NOTE | 2016-09-05 12:15 | PN ---
Progress Note, Physician - Current Medication List Current Medications: Active Medications Alprazolam (Xanax -) 0.25 mg PO Q6H PRN PRN Reason: ANXIETY Last Admin: 09/05/16 06:15 Dose: 0.25 mg Aspirin (Asa -) 81 mg PO DAILY [facility] Last Admin: 09/05/16 09:10 Dose: 81 mg Docusate Sodium (Colace -) 300 mg PO DAILY [facility] Last Admin: 09/05/16 09:09 Dose: 300 mg Furosemide (Lasix -) 20 mg PO DAILY [facility] Last Admin: 09/05/16 09:12 Dose: 20 mg Levofloxacin (Levaquin 500 Mg Premixed Ivpb -) 100 mls @ 100 mls/hr IVPB DAILY [facility] Last Admin: 09/05/16 10:14 Dose: 100 mls/hr Insulin Aspart (Novolog Vial) 15 units SQ TIDAC [facility] Last Admin: 09/05/16 11:51 Dose: 15 units Insulin Detemir (Levemir Vial) 25 units SQ BID@0700,2200 [facility] Last Admin: 09/05/16 06:18 Dose: 25 units Levothyroxine Sodium (Synthroid -) 100 mcg PO DAILY@0700 [facility] Last Admin: 09/05/16 06:15 Dose: 100 mcg Losartan Potassium (Cozaar -) 50 mg PO BID [facility] Last Admin: 09/05/16 09:10 Dose: 50 mg Methylprednisolone Sodium Succinate (Solu-Medrol -) 40 mg IVPB BID [facility] Last Admin: 09/05/16 09:14 Dose: 40 mg Montelukast Sodium (Singulair -) 10 mg PO HS [facility] Last Admin: 09/04/16 21:09 Dose: 10 mg Nystatin (Nystop Powder -) 1 applic TP BID [facility] Last Admin: 09/04/16 21:09 Dose: 1 applic Oxycodone HCl (Roxicodone -) 15 mg PO TID PRN PRN Reason: PAIN Last Admin: 09/05/16 09:10 Dose: 15 mg Polyethylene Glycol (Miralax (For Daily Use) -) 17 gm PO DAILY [facility] Last Admin: 09/05/16 09:13 Dose: 17 gm Tamoxifen Citrate (Tamoxifen Citrate) 20 mg PO BID [facility] Last Admin: 09/05/16 10:15 Dose: 20 mg Tobramycin Sulfate (Tobrex Ophthalmic Solution -) 1 drop OS Q6HPO [facility] Last Admin: 09/05/16 11:49 Dose: 1 drop - Objective Vital Signs: Vital Signs Temperature 98.7 F 09/05/16 10:00 Pulse Rate 92 H 09/05/16 10:00 Respiratory Rate 20 09/05/16 10:00 Blood Pressure 128/69 09/05/16 10:00 O2 Sat by Pulse Oximetry (%) 97 09/04/16 21:00 Eyes: Yes: WNL, Conjunctiva Clear, EOM Intact HENT: Yes: WNL, Atraumatic, Normocephalic Neck: Yes: WNL, Supple, Trachea Midline Cardiovascular: Yes: WNL, Regular Rate and Rhythm Respiratory: Yes: WNL, Regular, CTA Bilaterally Gastrointestinal: Yes: WNL, Normal Bowel Sounds Genitourinary: Yes: WNL Musculoskeletal: Yes: WNL Extremities: Yes: WNL Edema: No Integumentary: Yes: WNL Neurological: Yes: WNL, Alert, Oriented ...Motor Strength: WNL Psychiatric: Yes: WNL Labs: CBC, BMP 09/04/16 06:30 09/04/16 06:30 INR, PTT INR 0.96 (0.82-1.09) 08/30/16 11:32 Assessment/Plan Problems (1) Pulmonary emboli Assessment/Plan: 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 LE doppler: no DVT. Code(s): I26.99 - OTHER PULMONARY EMBOLISM WITHOUT ACUTE COR PULMONALE (2) Cervical cancer Assessment/Plan: with metastases to lungs. Code(s): C53.9 - MALIGNANT NEOPLASM OF CERVIX UTERI, UNSPECIFIED (3) Primary cervical cancer with metastasis to other site Assessment/Plan: ECHO: normal LVEF; abnormal diastolic complance; Mild [place], TR, MR; mild pulmonary HTN; no pericardial effusion. Code(s): C53.9 - MALIGNANT NEOPLASM OF CERVIX UTERI, UNSPECIFIED C79.9 - SECONDARY MALIGNANT NEOPLASM OF UNSPECIFIED SITE (4) Hypertension Assessment/Plan: On ARB. On 20 mg po furosemidestable Code(s): I10 - ESSENTIAL (PRIMARY) HYPERTENSION Qualifiers: Hypertension type: essential hypertension Qualified Code(s): I10 - Essential (primary) hypertension (5) Hypothyroidism Assessment/Plan: on synthroid; TSH WNL. Code(s): E03.9 - HYPOTHYROIDISM, UNSPECIFIED Qualifiers: Hypothyroidism type: unspecified Qualified Code(s): E03.9 - Hypothyroidism, unspecified (6) Diabetes Code(s): E11.9 - TYPE 2 DIABETES MELLITUS WITHOUT COMPLICATIONS Qualifiers: Diabetes mellitus type: type 2 Diabetes mellitus complication status: without complication (7) Atypical chest pain Assessment/Plan: Pt says the chest pain only occurs after bout of prolonged coughing. ECHO: normal LVEF; mild [place], MR, TR. Given pt's advanced cancer, would treat conservatively. Code(s): R07.89 - OTHER CHEST PAIN (8) Obesity Code(s): E66.9 - OBESITY, UNSPECIFIED
--- NOTE | 2016-09-05 16:10 | PN ---
Progress Note (short form) - Note Progress Note: PULMONARY DRY COUGH CONTINUES MODERATE SUBJECTIVE IMPROVEMENT VSS/AFEBRILE PALE SCATTERED MILD RHONCHI B/L S1S2 RSR BS+ SOFT OBESE DECREASED EDEMA LOWER EXT LABS/MEDS/NOTES/IMAGING REVIEWED Acute Asthma Exacerbation Chronic Hypoxic Respiratory Failure Cervical Cancer with Lung Metastases Hypothyroid h/o PE - medrol same dose for now - inhaled bronchodilators - O2 to keep SpO2 >90% - singulair - on empiric antibiotics - DVT prophylaxis Nael JIMENEZ MD
[2016-09-05] MEDS: TOBRAMYCIN 0.3% OPHTH SOLN 5 ML BOTTLE OU SCH ×2 (18:26→23:33)
--- NOTE | 2016-09-05 21:36 | PN ---
Progress Note (short form) - Note Progress Note: Patient seen and examined Feels better Last Vital Signs Temp Pulse Resp BP Pulse Ox 98.5 F 83 20 126/60 98 09/05/16 22:10 09/05/16 22:10 09/05/16 22:10 09/05/16 22:10 09/05/16 09:00 Cor: RSR, No murmurs, No gallops Lungs: Clear to P&A Abd: Soft, Normal bowel sounds, No organomegaly Ext:No significant edema Skin: No rashes, Integument intact Labs/meds reviewed a/p 66 y/o patient with metastatic cervical cancer, with lung mets on tamoxifen needs close f/u with primary oncologist at [facility] [place], given progressive disease h/o RLL PE 03/2016 Was on lovenox 120mg SC daily will resume it
[2016-09-05] MEDS ORDERED: PT OWN MED DRAWER 7, Y5N ONE (22:01)
[2016-09-05] MEDS: MONTELUKAST NA 10 MG TABLET PO SCH (22:14)
--- NOTE | 2016-09-05 22:24 | PN ---
Progress Note, Physician - Current Medication List Current Medications: Active Medications Alprazolam (Xanax -) 0.25 mg PO Q6H PRN PRN Reason: ANXIETY Last Admin: 09/05/16 18:26 Dose: 0.25 mg Aspirin (Asa -) 81 mg PO DAILY [facility] Last Admin: 09/05/16 09:10 Dose: 81 mg Docusate Sodium (Colace -) 300 mg PO DAILY [facility] Last Admin: 09/05/16 09:09 Dose: 300 mg Enoxaparin Sodium (Lovenox -) 120 mg SQ DAILY [facility] Furosemide (Lasix -) 20 mg PO DAILY [facility] Last Admin: 09/05/16 09:12 Dose: 20 mg Levofloxacin (Levaquin 500 Mg Premixed Ivpb -) 100 mls @ 100 mls/hr IVPB DAILY [facility] Last Admin: 09/05/16 10:14 Dose: 100 mls/hr Insulin Aspart (Novolog Vial) 15 units SQ TIDAC [facility] Last Admin: 09/05/16 17:29 Dose: 15 units Insulin Detemir (Levemir Vial) 25 units SQ BID@0700,2200 [facility] Last Admin: 09/05/16 22:18 Dose: 25 units Levothyroxine Sodium (Synthroid -) 100 mcg PO DAILY@0700 [facility] Last Admin: 09/05/16 06:15 Dose: 100 mcg Losartan Potassium (Cozaar -) 50 mg PO BID [facility] Last Admin: 09/05/16 22:14 Dose: 50 mg Methylprednisolone Sodium Succinate (Solu-Medrol -) 40 mg IVPB BID [facility] Last Admin: 09/05/16 22:14 Dose: 40 mg Montelukast Sodium (Singulair -) 10 mg PO HS [facility] Last Admin: 09/05/16 22:14 Dose: 10 mg Nystatin (Nystop Powder -) 1 applic TP BID [facility] Last Admin: 09/05/16 22:14 Dose: 1 applic Oxycodone HCl (Roxicodone -) 15 mg PO Q8H PRN PRN Reason: PAIN Last Admin: 09/05/16 18:27 Dose: 15 mg Polyethylene Glycol (Miralax (For Daily Use) -) 17 gm PO DAILY [facility] Last Admin: 09/05/16 09:13 Dose: 17 gm Tamoxifen Citrate (Tamoxifen Citrate) 20 mg PO BID [facility] Last Admin: 09/05/16 22:15 Dose: 20 mg Tobramycin Sulfate (Tobrex Ophthalmic Solution -) 1 drop OS Q6HPO [facility] Last Admin: 09/05/16 17:29 Dose: 1 drop Tobramycin Sulfate (Tobrex Ophthalmic Solution -) 1 drop OU Q6HPO [facility] Last Admin: 09/05/16 18:26 Dose: 1 drop - Objective Vital Signs: Vital Signs Temperature 98.5 F 09/05/16 22:10 Pulse Rate 83 09/05/16 22:10 Respiratory Rate 20 09/05/16 22:10 Blood Pressure 126/60 09/05/16 22:10 O2 Sat by Pulse Oximetry (%) 98 09/05/16 09:00 Constitutional: Yes: Well Nourished Eyes: Yes: WNL HENT: Yes: WNL Neck: Yes: Supple Cardiovascular: Yes: WNL, Regular Rate and Rhythm Respiratory: Yes: Wheezes Gastrointestinal: Yes: WNL, Normal Bowel Sounds, Soft Labs: CBC, BMP 09/04/16 06:30 09/04/16 06:30 INR, PTT INR 0.96 (0.82-1.09) 08/30/16 11:32 Problem List - Problems (1) Acute asthma exacerbation Assessment/Plan: Pt still w/ some wheezing today Pt still requiring IV solumedrol Cont nebulizers/inhalers As per pulmonary Code(s): J45.901 - UNSPECIFIED ASTHMA WITH (ACUTE) EXACERBATION (2) Chest pain Code(s): R07.9 - CHEST PAIN, UNSPECIFIED Qualifiers: Qualified Code(s): R07.9 - Chest pain, unspecified (3) Obesity Code(s): E66.9 - OBESITY, UNSPECIFIED (4) Anxiety Code(s): F41.9 - ANXIETY DISORDER, UNSPECIFIED (5) Diabetes Code(s): E11.9 - TYPE 2 DIABETES MELLITUS WITHOUT COMPLICATIONS (6) History of DVT of lower extremity Code(s): Z86.718 - PERSONAL HISTORY OF OTHER VENOUS THROMBOSIS AND EMBOLISM (7) Hyperlipidemia Code(s): E78.5 - HYPERLIPIDEMIA, UNSPECIFIED Qualifiers: Qualified Code(s): E78.5 - Hyperlipidemia, unspecified (8) Hypertension Code(s): I10 - ESSENTIAL (PRIMARY) HYPERTENSION Qualifiers: Qualified Code(s): I10 - Essential (primary) hypertension (9) Hypothyroidism Code(s): E03.9 - HYPOTHYROIDISM, UNSPECIFIED Qualifiers: Qualified Code(s): E03.9 - Hypothyroidism, unspecified
[2016-09-05] MEDS: ENOXAPARIN NA (PORCINE) 120 MG/0.8 ML DISP.SYRIN SQ SCH (23:33)
[2016-09-06] MEDS: oxyCODONE HCL 5 MG TABLET PO PRN ×3 (01:23→18:08)
[2016-09-06] MEDS: ALPRAZolam 0.25 MG TABLET PO PRN ×4 (01:23→21:26)
[2016-09-06] MEDS: ALBUTEROL SO4 2.5/IPRATROPIUM 0.5 INH SOL 3 ML VIAL.NEB. NEB PRN (02:10)
[2016-09-06] MEDS: LEVOTHYROXINE NA 100 MCG TABLET (FP) PO SCH (06:21)
[2016-09-06] MEDS: TOBRAMYCIN 0.3% OPHTH SOLN 5 ML BOTTLE OS SCH (06:21)
[2016-09-06] MEDS: TOBRAMYCIN 0.3% OPHTH SOLN 5 ML BOTTLE OU SCH ×4 (06:21→23:14)
[2016-09-06] MEDS: INSULIN DETEMIR 100 UNITS/ML MDV SQ SCH ×2 (06:22→21:18)
[2016-09-06] MEDS: INSULIN (NOVOLOG) ASPART 100 UNITS/ML 10ML VIAL SQ SCH ×3 (06:39→17:15)
[2016-09-06 07:50] LABS: MCHC 32.7 g/dl (32.0-36.0); MEAN CELL VOLUME 79.5 fl (80-96); MEAN PLT VOLUME 9.1 fl (7.5-11.1); PLATELET COUNT 227 K/MM3 (134-434); RDW 16.4 % (11.6-15.6); WHITE BLOOD COUNT 15.5 K/mm3 (4.0-10.0)
[2016-09-06 08:25] LABS: ALBUMIN 3.2 g/dl (3.4-5.0); BILIRUBIN,TOTAL 0.3 mg/dL (0.2-1.0); CALCIUM 8.8 mg/dL (8.5-10.1); COCKROFT - GAULT 69.3685; CREATININE 1.1 mg/dL (0.55-1.02); TOT PROT 6.5 g/dl (6.4-8.2)
[2016-09-06 08:54] LABS: INR 1.08 (0.82-1.09); PROTHROMBIN TIME (PATIENT) 11.9 SEC (9.98-11.88)
[2016-09-06] MEDS: ENOXAPARIN NA (PORCINE) 120 MG/0.8 ML DISP.SYRIN SQ SCH ×2 (10:00→22:46)
[2016-09-06] MEDS: ASPIRIN 81 MG CHEWABLE TABLETS PO SCH (10:55)
[2016-09-06] MEDS: DOCUSATE SODIUM 100 MG CAPSULE (FP) PO SCH (10:56)
[2016-09-06] MEDS: FUROSEMIDE 20 MG TABLET (FP) PO SCH (10:56)
[2016-09-06] MEDS: LOSARTAN POTASSIUM 50 MG TABLET (FP) PO SCH ×2 (10:56→21:18)
[2016-09-06] MEDS: TAMOXIFEN CITRATE 10 MG TABLET PO SCH ×2 (10:57→21:22)
[2016-09-06] MEDS: POLYETHYLENE GLYCOL 3350 119 GM BTL PO SCH (10:57)
[2016-09-06] MEDS: methylPREDNISolone NA SUCC 40 MG/1 ML VIAL IVPB SCH ×2 (10:57→21:20)
[2016-09-06] MEDS: LEVOFLOXACIN 500 MG IVPB 100 ML IVPB SCH (11:40)
[2016-09-06 12:24] LABS: PLATELET ESTIMATE ADEQUATE (NORMAL)
--- NOTE | 2016-09-06 12:41 | PN ---
Progress Note (short form) - Note Progress Note: PULMONARY Some dyspnea overnight but breathing better today. +cough with white sputum and wheezing. No fevers or chills. Last Vital Signs Temp Pulse Resp BP Pulse Ox 98.3 F 90 18 153/85 100 09/06/16 11:13 09/06/16 11:13 09/06/16 11:13 09/06/16 11:13 09/05/16 21:00 Gen: NAD at rest Heart: RRR Lung: scattered expiratory wheezes Abd: soft, nontender Ext: no edema CBC, BMP 09/06/16 06:30 09/06/16 06:30 Active Medications Albuterol/Ipratropium (Duoneb -) 1 amp NEB Q6H PRN PRN Reason: SHORT OF BREATH/WHEEZING Last Admin: 09/06/16 02:10 Dose: 1 amp Alprazolam (Xanax -) 0.25 mg PO Q6H PRN PRN Reason: ANXIETY Last Admin: 09/06/16 08:11 Dose: 0.25 mg Aspirin (Asa -) 81 mg PO DAILY [facility] Last Admin: 09/06/16 10:55 Dose: 81 mg Docusate Sodium (Colace -) 300 mg PO DAILY [facility] Last Admin: 09/06/16 10:56 Dose: 300 mg Enoxaparin Sodium (Lovenox -) 120 mg SQ DAILY [facility] Last Admin: 09/05/16 23:33 Dose: 120 mg Furosemide (Lasix -) 20 mg PO DAILY [facility] Last Admin: 09/06/16 10:56 Dose: 20 mg Levofloxacin (Levaquin 500 Mg Premixed Ivpb -) 100 mls @ 100 mls/hr IVPB DAILY [facility] Last Admin: 09/06/16 11:40 Dose: 100 mls/hr Insulin Aspart (Novolog Vial) 15 units SQ TIDAC [facility] Last Admin: 09/06/16 11:39 Dose: 15 units Insulin Detemir (Levemir Vial) 25 units SQ BID@0700,2200 [facility] Last Admin: 09/06/16 06:22 Dose: 25 units Levothyroxine Sodium (Synthroid -) 100 mcg PO DAILY@0700 [facility] Last Admin: 09/06/16 06:21 Dose: 100 mcg Losartan Potassium (Cozaar -) 50 mg PO BID [facility] Last Admin: 09/06/16 10:56 Dose: 50 mg Methylprednisolone Sodium Succinate (Solu-Medrol -) 40 mg IVPB BID [facility] Last Admin: 09/06/16 10:57 Dose: 40 mg Montelukast Sodium (Singulair -) 10 mg PO HS [facility] Last Admin: 09/05/16 22:14 Dose: 10 mg Nystatin (Nystop Powder -) 1 applic TP BID [facility] Last Admin: 09/05/16 22:14 Dose: 1 applic Oxycodone HCl (Roxicodone -) 15 mg PO Q8H PRN PRN Reason: PAIN Last Admin: 09/06/16 10:14 Dose: 15 mg Polyethylene Glycol (Miralax (For Daily Use) -) 17 gm PO DAILY [facility] Last Admin: 09/06/16 10:57 Dose: 17 gm Tamoxifen Citrate (Tamoxifen Citrate) 20 mg PO BID [facility] Last Admin: 09/06/16 10:57 Dose: 20 mg Tobramycin Sulfate (Tobrex Ophthalmic Solution -) 1 drop OU Q6HPO [facility] Last Admin: 09/06/16 11:40 Dose: 1 drop A/P Acute Asthma Exacerbation Chronic Hypoxic Respiratory Failure Cervical Cancer with Lung Metastases Hypothyroid h/o PE - continue medrol at current dose - will add cough suppressant - inhaled bronchodilators - O2 to keep SpO2 >90% - singulair - on empiric antibiotics - DVT prophylaxis
[2016-09-06] MEDS: NYSTATIN POWDER 100,000 UNITS/GM - 15 GM TOPICAL POWDER TP SCH ×2 (13:00→21:26)
[2016-09-06] MEDS: ATORVASTATIN CA 40 MG TABLET (FP) PO SCH (13:43)
[2016-09-06] MEDS: guaiFENesin/CODEINE 5 ML UNIT-DOSE CUPS PO PRN ×2 (13:43→21:29)
--- NOTE | 2016-09-06 20:26 | PN ---
Progress Note, Physician History of Present Illness: No new change - Current Medication List Current Medications: Active Medications Albuterol/Ipratropium (Duoneb -) 1 amp NEB Q6H PRN PRN Reason: SHORT OF BREATH/WHEEZING Last Admin: 09/06/16 02:10 Dose: 1 amp Alprazolam (Xanax -) 0.25 mg PO Q6H PRN PRN Reason: ANXIETY Last Admin: 09/06/16 14:46 Dose: 0.25 mg Aspirin (Asa -) 81 mg PO DAILY [facility] Last Admin: 09/06/16 10:55 Dose: 81 mg Atorvastatin Calcium (Lipitor -) 40 mg PO DAILY [facility] Last Admin: 09/06/16 13:43 Dose: 40 mg Docusate Sodium (Colace -) 300 mg PO DAILY [facility] Last Admin: 09/06/16 10:56 Dose: 300 mg Enoxaparin Sodium (Lovenox -) 120 mg SQ DAILY@2300 [facility] Furosemide (Lasix -) 20 mg PO DAILY [facility] Last Admin: 09/06/16 10:56 Dose: 20 mg Guaifenesin/Codeine Phosphate (Robitussin Ac -) 5 ml PO TID PRN PRN Reason: COUGH Last Admin: 09/06/16 13:43 Dose: 5 ml Levofloxacin (Levaquin 500 Mg Premixed Ivpb -) 100 mls @ 100 mls/hr IVPB DAILY [facility] Last Admin: 09/06/16 11:40 Dose: 100 mls/hr Insulin Aspart (Novolog Vial) 15 units SQ TIDAC [facility] Last Admin: 09/06/16 17:15 Dose: 15 units Insulin Detemir (Levemir Vial) 25 units SQ BID@0700,2200 [facility] Last Admin: 09/06/16 06:22 Dose: 25 units Levothyroxine Sodium (Synthroid -) 100 mcg PO DAILY@0700 [facility] Last Admin: 09/06/16 06:21 Dose: 100 mcg Losartan Potassium (Cozaar -) 50 mg PO BID [facility] Last Admin: 09/06/16 10:56 Dose: 50 mg Methylprednisolone Sodium Succinate (Solu-Medrol -) 40 mg IVPB BID [facility] Last Admin: 09/06/16 10:57 Dose: 40 mg Montelukast Sodium (Singulair -) 10 mg PO HS [facility] Last Admin: 09/05/16 22:14 Dose: 10 mg Nystatin (Nystop Powder -) 1 applic TP BID [facility] Last Admin: 09/06/16 13:00 Dose: 1 applic Oxycodone HCl (Roxicodone -) 15 mg PO Q8H PRN PRN Reason: PAIN Last Admin: 09/06/16 18:08 Dose: 15 mg Polyethylene Glycol (Miralax (For Daily Use) -) 17 gm PO DAILY [facility] Last Admin: 09/06/16 10:57 Dose: 17 gm Tamoxifen Citrate (Tamoxifen Citrate) 20 mg PO BID [facility] Last Admin: 09/06/16 10:57 Dose: 20 mg Tobramycin Sulfate (Tobrex Ophthalmic Solution -) 1 drop OU Q6HPO [facility] Last Admin: 09/06/16 17:16 Dose: 1 drop - Objective Vital Signs: Vital Signs Temperature 98.3 F 09/06/16 18:00 Pulse Rate 98 H 09/06/16 18:00 Respiratory Rate 20 09/06/16 18:00 Blood Pressure 133/77 09/06/16 18:00 O2 Sat by Pulse Oximetry (%) 96 09/06/16 09:00 Constitutional: Yes: Well Nourished HENT: Yes: WNL Neck: Yes: Supple Cardiovascular: Yes: WNL, Regular Rate and Rhythm Respiratory: Yes: Wheezes Gastrointestinal: Yes: WNL, Normal Bowel Sounds, Soft Labs: CBC, BMP 09/06/16 06:30 09/06/16 06:30 INR, PTT INR 1.08 (0.82-1.09) 09/06/16 06:30 Problem List - Problems (1) Acute asthma exacerbation Assessment/Plan: Cont IV solumedrol Cont nebulizers/inhalers As per pulmonary Code(s): J45.901 - UNSPECIFIED ASTHMA WITH (ACUTE) EXACERBATION (2) Chest pain Code(s): R07.9 - CHEST PAIN, UNSPECIFIED Qualifiers: Qualified Code(s): R07.9 - Chest pain, unspecified (3) Obesity Code(s): E66.9 - OBESITY, UNSPECIFIED (4) Anxiety Code(s): F41.9 - ANXIETY DISORDER, UNSPECIFIED (5) Diabetes Code(s): E11.9 - TYPE 2 DIABETES MELLITUS WITHOUT COMPLICATIONS (6) History of DVT of lower extremity Code(s): Z86.718 - PERSONAL HISTORY OF OTHER VENOUS THROMBOSIS AND EMBOLISM (7) Hyperlipidemia Code(s): E78.5 - HYPERLIPIDEMIA, UNSPECIFIED Qualifiers: Qualified Code(s): E78.5 - Hyperlipidemia, unspecified (8) Hypertension Code(s): I10 - ESSENTIAL (PRIMARY) HYPERTENSION Qualifiers: Qualified Code(s): I10 - Essential (primary) hypertension (9) Hypothyroidism Code(s): E03.9 - HYPOTHYROIDISM, UNSPECIFIED Qualifiers: Qualified Code(s): E03.9 - Hypothyroidism, unspecified
[2016-09-06] MEDS ORDERED: PT OWN MED DRAWER 7, Y5N ONE (20:38)
[2016-09-06] MEDS: MONTELUKAST NA 10 MG TABLET PO SCH (21:20)
--- NOTE | 2016-09-06 22:35 | PN ---
Progress Note (short form) - Note Progress Note: Patient seen and examined slowly improving afvss Cor: RSR, No murmurs, No gallops Lungs: Clear to P&A Abd: Soft, Normal bowel sounds, No organomegaly Ext:No significant edema Skin: No rashes, Integument intact Labs/meds reviewed a/p 66 y/o patient with metastatic cervical cancer, with lung mets on tamoxifen needs close f/u with primary oncologist at [facility] [place], given progressive disease h/o RLL PE 03/2016 Was on lovenox 120mg SC daily resumed
[2016-09-07] MEDS: oxyCODONE HCL 5 MG TABLET PO PRN ×3 (00:23→17:33)
--- NOTE | 2016-09-07 01:07 | PN ---
Progress Note, Physician Chief Complaint: Pt A&Ox3; felt nauseous this morning; attributes this to being given Lovenox later than usual. History of Present Illness: 66-year-old female (iveth. Everardo Neal) presents to the ED with complaints of worsening cough, congestion, now with left-sided chest pain that she describes an aching dull sensation that radiates to her left neck and left upper arm (on further questioning, pt says the chest pain only began after she had been coughing for several days, and is related to forceful coughing; the cough and chest pain have lessened over the past 48 hours). Patient also complaining of lower extremity edema and epigastric cramping. Patient denies fever, chills, productive cough, throat pain, headache, dizziness, nausea, diarrhea, change in urine output, or rash. Patient history of asthma, PE, cervical CA with metastases to lungs, diabetes, anxiety, hyperlipidemia, hypertension, hypothyroidism, obesity. Patient also is on oxygen 3 L nasal cannula at home ( denies hx cigarettes, but grew up with her mother smoking in the house). Presenting Symptoms: Abdominal Pain, Chest Pain, Short of Breath Timing/Duration: reports: constant Severity/Quality: reports: moderate, aching Location: reports: substernal Chest Pain Radiation: reports: no radiation Activities at Onset: reports: none Prior Chest Pain/Cardiac Workup: reports: Echocardiography Nitro Today/Relief: Yes: no nitro taken today Aspirin Received prior to arrival (Core Measure): Yes: no aspirin today, 81 mg x 2 (given in the ED) Associated Symptoms: Yes: Abdominal pain, Cough, Chest Pain/pressure - Current Medication List Current Medications: Active Medications Albuterol/Ipratropium (Duoneb -) 1 amp NEB Q6H PRN PRN Reason: SHORT OF BREATH/WHEEZING Last Admin: 09/06/16 02:10 Dose: 1 amp Alprazolam (Xanax -) 0.25 mg PO Q6H PRN PRN Reason: ANXIETY Last Admin: 09/06/16 21:26 Dose: 0.25 mg Aspirin (Asa -) 81 mg PO DAILY [facility] Last Admin: 09/06/16 10:55 Dose: 81 mg Atorvastatin Calcium (Lipitor -) 40 mg PO DAILY [facility] Last Admin: 09/06/16 13:43 Dose: 40 mg Docusate Sodium (Colace -) 300 mg PO DAILY [facility] Last Admin: 09/06/16 10:56 Dose: 300 mg Enoxaparin Sodium (Lovenox -) 120 mg SQ DAILY@2300 [facility] Last Admin: 09/06/16 22:46 Dose: 120 mg Furosemide (Lasix -) 20 mg PO DAILY [facility] Last Admin: 09/06/16 10:56 Dose: 20 mg Guaifenesin/Codeine Phosphate (Robitussin Ac -) 5 ml PO TID PRN PRN Reason: COUGH Last Admin: 09/06/16 21:29 Dose: 5 ml Levofloxacin (Levaquin 500 Mg Premixed Ivpb -) 100 mls @ 100 mls/hr IVPB DAILY [facility] Last Admin: 09/06/16 11:40 Dose: 100 mls/hr Insulin Aspart (Novolog Vial) 15 units SQ TIDAC [facility] Last Admin: 09/06/16 17:15 Dose: 15 units Insulin Detemir (Levemir Vial) 25 units SQ BID@0700,2200 [facility] Last Admin: 09/06/16 21:18 Dose: 25 units Levothyroxine Sodium (Synthroid -) 100 mcg PO DAILY@0700 [facility] Last Admin: 09/06/16 06:21 Dose: 100 mcg Losartan Potassium (Cozaar -) 50 mg PO BID [facility] Last Admin: 09/06/16 21:18 Dose: 50 mg Methylprednisolone Sodium Succinate (Solu-Medrol -) 40 mg IVPB BID [facility] Last Admin: 09/06/16 21:20 Dose: 40 mg Montelukast Sodium (Singulair -) 10 mg PO HS [facility] Last Admin: 09/06/16 21:20 Dose: 10 mg Nystatin (Nystop Powder -) 1 applic TP BID [facility] Last Admin: 09/06/16 21:26 Dose: 1 applic Oxycodone HCl (Roxicodone -) 15 mg PO Q8H PRN PRN Reason: PAIN Last Admin: 09/07/16 00:23 Dose: 15 mg Polyethylene Glycol (Miralax (For Daily Use) -) 17 gm PO DAILY [facility] Last Admin: 09/06/16 10:57 Dose: 17 gm Tamoxifen Citrate (Tamoxifen Citrate) 20 mg PO BID [facility] Last Admin: 09/06/16 21:22 Dose: 20 mg Tobramycin Sulfate (Tobrex Ophthalmic Solution -) 1 drop OU Q6HPO [facility] Last Admin: 09/06/16 23:14 Dose: 1 drop - Objective Vital Signs: Vital Signs Temperature 98.6 F 09/06/16 22:00 Pulse Rate 85 09/06/16 22:00 Respiratory Rate 20 09/06/16 22:00 Blood Pressure 151/76 09/06/16 22:00 O2 Sat by Pulse Oximetry (%) 100 09/06/16 21:00 Constitutional: Yes: Anxious Eyes: Yes: WNL HENT: Yes: WNL Neck: Yes: WNL Cardiovascular: Yes: Regular Rate and Rhythm, S1, S2, S4 Respiratory: Yes: Diminished Gastrointestinal: Yes: Soft ...Rectal Exam: Yes: Deferred Genitourinary: No: Anuria Musculoskeletal: Yes: Muscle Weakness Extremities: Yes: Cool Edema: No Peripheral Pulses WNL: Yes Integumentary: Yes: WNL Neurological: Yes: Alert, Oriented, Weakness Psychiatric: Yes: Alert, Oriented, Other (anxious) Labs: CBC, BMP 09/06/16 06:30 09/06/16 06:30 INR, PTT INR 1.08 (0.82-1.09) 09/06/16 06:30 Problem List - Problems (1) Pulmonary emboli Assessment/Plan: As discussed with Dr. Ruiz, pt has hx PE. On Lovenox 120 mg daily. Code(s): I26.99 - OTHER PULMONARY EMBOLISM WITHOUT ACUTE COR PULMONALE (2) Cervical cancer Assessment/Plan: with metastases to lungs. F/u with oncologist. Code(s): C53.9 - MALIGNANT NEOPLASM OF CERVIX UTERI, UNSPECIFIED (3) Primary cervical cancer with metastasis to other site Assessment/Plan: f/u ECHO this admission: normal LVEF; abnormal diastolic compliance; mild LAE; mild MR, TR, [place]. Code(s): C53.9 - MALIGNANT NEOPLASM OF CERVIX UTERI, UNSPECIFIED C79.9 - SECONDARY MALIGNANT NEOPLASM OF UNSPECIFIED SITE (4) Hypertension Assessment/Plan: On ARB; increase dose if BP remains elevated. On furosemide (avoid dehydration). Code(s): I10 - ESSENTIAL (PRIMARY) HYPERTENSION Qualifiers: Qualified Code(s): I10 - Essential (primary) hypertension (5) Hypothyroidism Assessment/Plan: on synthroid; TSH WNL. Code(s): E03.9 - HYPOTHYROIDISM, UNSPECIFIED Qualifiers: Qualified Code(s): E03.9 - Hypothyroidism, unspecified (6) Diabetes Code(s): E11.9 - TYPE 2 DIABETES MELLITUS WITHOUT COMPLICATIONS (7) Atypical chest pain Assessment/Plan: Pt says the chest pain only occurs after bout of prolonged coughing. TNI < 0.02 x 4.. LDL cholesterol >180 mg/dL; start atorvastatin 40 mg daily. Code(s): R07.89 - OTHER CHEST PAIN (8) Obesity Code(s): E66.9 - OBESITY, UNSPECIFIED
[2016-09-07] MEDS: INSULIN DETEMIR 100 UNITS/ML MDV SQ SCH ×2 (06:18→23:03)
[2016-09-07] MEDS: TOBRAMYCIN 0.3% OPHTH SOLN 5 ML BOTTLE OU SCH ×4 (06:18→23:06)
[2016-09-07] MEDS: INSULIN (NOVOLOG) ASPART 100 UNITS/ML 10ML VIAL SQ SCH ×3 (06:21→17:38)
[2016-09-07] MEDS: LEVOTHYROXINE NA 100 MCG TABLET (FP) PO SCH (06:21)
[2016-09-07] MEDS: ALPRAZolam 0.25 MG TABLET PO PRN ×3 (06:26→23:06)
[2016-09-07] MEDS ORDERED: INSULIN DETEMIR 100 UNITS/ML MDV SQ ONE (06:54)
[2016-09-07] MEDS ORDERED: INSULIN (NOVOLOG) ASPART 100 UNITS/ML 10ML VIAL ONE ×2 (06:54→12:10)
[2016-09-07] MEDS ORDERED: PT OWN MED DRAWER 7, Y5N ONE ×3 (06:55→22:24)
[2016-09-07] MEDS: methylPREDNISolone NA SUCC 40 MG/1 ML VIAL IVPB SCH ×2 (09:15→23:05)
[2016-09-07] MEDS: DOCUSATE SODIUM 100 MG CAPSULE (FP) PO SCH (09:16)
[2016-09-07] MEDS: FUROSEMIDE 20 MG TABLET (FP) PO SCH (09:16)
[2016-09-07] MEDS: ASPIRIN 81 MG CHEWABLE TABLETS PO SCH (09:16)
[2016-09-07] MEDS: POLYETHYLENE GLYCOL 3350 119 GM BTL PO SCH (09:17)
[2016-09-07] MEDS: TAMOXIFEN CITRATE 10 MG TABLET PO SCH ×2 (09:18→23:05)
[2016-09-07] MEDS: LOSARTAN POTASSIUM 50 MG TABLET (FP) PO SCH ×2 (09:21→23:03)
[2016-09-07] MEDS: NYSTATIN POWDER 100,000 UNITS/GM - 15 GM TOPICAL POWDER TP SCH ×2 (09:22→23:18)
--- NOTE | 2016-09-07 13:09 | PN ---
Progress Note, Physician History of Present Illness: pulmonary feeling better ,less dyspneic,less cough - Current Medication List Current Medications: Active Medications Albuterol/Ipratropium (Duoneb -) 1 amp NEB Q6H PRN PRN Reason: SHORT OF BREATH/WHEEZING Last Admin: 09/06/16 02:10 Dose: 1 amp Alprazolam (Xanax -) 0.25 mg PO Q6H PRN PRN Reason: ANXIETY Last Admin: 09/07/16 12:45 Dose: 0.25 mg Aspirin (Asa -) 81 mg PO DAILY [facility] Last Admin: 09/07/16 09:16 Dose: 81 mg Atorvastatin Calcium (Lipitor -) 40 mg PO DAILY [facility] Last Admin: 09/06/16 13:43 Dose: 40 mg Docusate Sodium (Colace -) 300 mg PO DAILY [facility] Last Admin: 09/07/16 09:16 Dose: 300 mg Enoxaparin Sodium (Lovenox -) 120 mg SQ DAILY@2300 [facility] Last Admin: 09/06/16 22:46 Dose: 120 mg Furosemide (Lasix -) 20 mg PO DAILY [facility] Last Admin: 09/07/16 09:16 Dose: 20 mg Guaifenesin/Codeine Phosphate (Robitussin Ac -) 5 ml PO TID PRN PRN Reason: COUGH Last Admin: 09/06/16 21:29 Dose: 5 ml Insulin Aspart (Novolog Vial) 15 units SQ TIDAC [facility] Last Admin: 09/07/16 12:13 Dose: 15 units Insulin Detemir (Levemir Vial) 25 units SQ BID@0700,2200 [facility] Last Admin: 09/07/16 06:18 Dose: 25 units Levothyroxine Sodium (Synthroid -) 100 mcg PO DAILY@0700 [facility] Last Admin: 09/07/16 06:21 Dose: 100 mcg Losartan Potassium (Cozaar -) 50 mg PO BID [facility] Last Admin: 09/07/16 09:21 Dose: 50 mg Methylprednisolone Sodium Succinate (Solu-Medrol -) 40 mg IVPB BID [facility] Last Admin: 09/07/16 09:15 Dose: 40 mg Montelukast Sodium (Singulair -) 10 mg PO HS [facility] Last Admin: 09/06/16 21:20 Dose: 10 mg Nystatin (Nystop Powder -) 1 applic TP BID [facility] Last Admin: 09/07/16 09:22 Dose: 1 applic Oxycodone HCl (Roxicodone -) 15 mg PO Q8H PRN PRN Reason: PAIN Last Admin: 09/07/16 09:14 Dose: 15 mg Polyethylene Glycol (Miralax (For Daily Use) -) 17 gm PO DAILY [facility] Last Admin: 09/07/16 09:17 Dose: 17 gm Tamoxifen Citrate (Tamoxifen Citrate) 20 mg PO BID [facility] Last Admin: 09/07/16 09:18 Dose: 20 mg Tobramycin Sulfate (Tobrex Ophthalmic Solution -) 1 drop OU Q6HPO [facility] Last Admin: 09/07/16 11:59 Dose: 1 drop - Objective Vital Signs: Vital Signs Temperature 97.4 F L 09/07/16 06:00 Pulse Rate 87 09/07/16 11:18 Respiratory Rate 20 09/07/16 06:00 Blood Pressure 132/78 09/07/16 06:00 O2 Sat by Pulse Oximetry (%) 97 09/07/16 11:18 Constitutional: Yes: Well Nourished, Calm Eyes: Yes: WNL HENT: Yes: WNL Neck: Yes: WNL Cardiovascular: Yes: Regular Rate and Rhythm, S1, S2 Respiratory: Yes: Wheezes (bilateral wheezes) Gastrointestinal: Yes: Normal Bowel Sounds, Soft Extremities: Yes: WNL Edema: No Labs: CBC, BMP 09/06/16 06:30 09/06/16 06:30 INR, PTT INR 1.08 (0.82-1.09) 09/06/16 06:30 Problem List - Problems (1) Acute asthma exacerbation Code(s): J45.901 - UNSPECIFIED ASTHMA WITH (ACUTE) EXACERBATION (2) Chest pain Code(s): R07.9 - CHEST PAIN, UNSPECIFIED Qualifiers: Qualified Code(s): R07.9 - Chest pain, unspecified (3) Primary cervical cancer with metastasis to other site Code(s): C53.9 - MALIGNANT NEOPLASM OF CERVIX UTERI, UNSPECIFIED C79.9 - SECONDARY MALIGNANT NEOPLASM OF UNSPECIFIED SITE (4) Pulmonary emboli Code(s): I26.99 - OTHER PULMONARY EMBOLISM WITHOUT ACUTE COR PULMONALE (5) Cervical cancer Code(s): C53.9 - MALIGNANT NEOPLASM OF CERVIX UTERI, UNSPECIFIED (6) Fever Code(s): R50.9 - FEVER, UNSPECIFIED (7) Metastasis to lung Code(s): C78.00 - SECONDARY MALIGNANT NEOPLASM OF UNSPECIFIED LUNG (8) Metastatic disease Code(s): C79.9 - SECONDARY MALIGNANT NEOPLASM OF UNSPECIFIED SITE (9) Steroid dependence Code(s): [id number] - (10) Type 2 diabetes mellitus with hyperosmolarity without nonketotic hyperglycemic-hyperosmolar coma ([facility]) Code(s): E11.00 - TYPE 2 DIAB W HYPROSM W/O NONKET HYPRGLY-HYPROS COMA ([facility]) (11) Chronic steroid use Code(s): FIL6851 - (12) Hyperlipidemia Code(s): E78.5 - HYPERLIPIDEMIA, UNSPECIFIED Qualifiers: Qualified Code(s): E78.5 - Hyperlipidemia, unspecified (13) Hypertension Code(s): I10 - ESSENTIAL (PRIMARY) HYPERTENSION Qualifiers: Qualified Code(s): I10 - Essential (primary) hypertension (14) Hypothyroidism Code(s): E03.9 - HYPOTHYROIDISM, UNSPECIFIED Qualifiers: Qualified Code(s): E03.9 - Hypothyroidism, unspecified (15) Chronic hypoxemic respiratory failure Code(s): J96.11 - CHRONIC RESPIRATORY FAILURE WITH HYPOXIA Assessment/Plan IMP CERVICAL CA WITH LUNG METS CHRONIC HYPOXEMIC RESPIRATORY FAILURE CLINICALLY IMPROVING ASTHMA IMPROVING CHEST PAIN SYNDROME IMPROVED URI HYPOTHYROID H/O PE HLD FEVER PLAN NASAL O2 INHALED BRONCHODILATORS MEDROL SAME DOSE DR CELAYA Problem List - Problems (1) Acute asthma exacerbation Code(s): J45.901 - UNSPECIFIED ASTHMA WITH (ACUTE) EXACERBATION (2) Chest pain Code(s): R07.9 - CHEST PAIN, UNSPECIFIED Qualifiers: Chest pain type: unspecified Qualified Code(s): R07.9 - Chest pain, unspecified (3) Primary cervical cancer with metastasis to other site Code(s): C53.9 - MALIGNANT NEOPLASM OF CERVIX UTERI, UNSPECIFIED C79.9 - SECONDARY MALIGNANT NEOPLASM OF UNSPECIFIED SITE (4) Pulmonary emboli Code(s): I26.99 - OTHER PULMONARY EMBOLISM WITHOUT ACUTE COR PULMONALE (5) Cervical cancer Code(s): C53.9 - MALIGNANT NEOPLASM OF CERVIX UTERI, UNSPECIFIED (6) Fever Code(s): R50.9 - FEVER, UNSPECIFIED (7) Metastasis to lung Code(s): C78.00 - SECONDARY MALIGNANT NEOPLASM OF UNSPECIFIED LUNG (8) Metastatic disease Code(s): C79.9 - SECONDARY MALIGNANT NEOPLASM OF UNSPECIFIED SITE (9) Steroid dependence Code(s): [id number] - (10) Type 2 diabetes mellitus with hyperosmolarity without nonketotic hyperglycemic-hyperosmolar coma ([facility]) Code(s): E11.00 - TYPE 2 DIAB W HYPROSM W/O NONKET HYPRGLY-HYPROS COMA ([facility]) (11) Chronic steroid use Code(s): [id number] - (12) Hyperlipidemia Code(s): E78.5 - HYPERLIPIDEMIA, UNSPECIFIED Qualifiers: Hyperlipidemia type: unspecified Qualified Code(s): E78.5 - Hyperlipidemia, unspecified (13) Hypertension Code(s): I10 - ESSENTIAL (PRIMARY) HYPERTENSION Qualifiers: Hypertension type: essential hypertension Qualified Code(s): I10 - Essential (primary) hypertension (14) Hypothyroidism Code(s): E03.9 - HYPOTHYROIDISM, UNSPECIFIED Qualifiers: Hypothyroidism type: unspecified Qualified Code(s): E03.9 - Hypothyroidism, unspecified (15) Chronic hypoxemic respiratory failure Code(s): J96.11 - CHRONIC RESPIRATORY FAILURE WITH HYPOXIA
--- NOTE | 2016-09-07 15:57 | PN ---
Progress Note, Physician Chief Complaint: Pt A&Ox3; no chest pain; +dyspnea on mild exertion; no nausea. History of Present Illness: 66-year-old female (iveth. Everardo Neal) presents to the ED with complaints of worsening cough, congestion, now with left-sided chest pain that she describes an aching dull sensation that radiates to her left neck and left upper arm (on further questioning, pt says the chest pain only began after she had been coughing for several days, and is related to forceful coughing; the cough and chest pain have lessened over the past 48 hours). Patient also complaining of lower extremity edema and epigastric cramping. Patient denies fever, chills, productive cough, throat pain, headache, dizziness, nausea, diarrhea, change in urine output, or rash. Patient history of asthma, PE, cervical CA with metastases to lungs, diabetes, anxiety, hyperlipidemia, hypertension, hypothyroidism, obesity. Patient also is on oxygen 3 L nasal cannula at home ( denies hx cigarettes, but grew up with her mother smoking in the house). Presenting Symptoms: Abdominal Pain, Chest Pain, Short of Breath Timing/Duration: reports: constant Severity/Quality: reports: moderate, aching Location: reports: substernal Chest Pain Radiation: reports: no radiation Activities at Onset: reports: none Prior Chest Pain/Cardiac Workup: reports: Echocardiography Nitro Today/Relief: Yes: no nitro taken today Aspirin Received prior to arrival (Core Measure): Yes: no aspirin today, 81 mg x 2 (given in the ED) Associated Symptoms: Yes: Abdominal pain, Cough, Chest Pain/pressure - Current Medication List Current Medications: Active Medications Albuterol/Ipratropium (Duoneb -) 1 amp NEB Q6H PRN PRN Reason: SHORT OF BREATH/WHEEZING Last Admin: 09/06/16 02:10 Dose: 1 amp Alprazolam (Xanax -) 0.25 mg PO Q6H PRN PRN Reason: ANXIETY Last Admin: 09/07/16 12:45 Dose: 0.25 mg Aspirin (Asa -) 81 mg PO DAILY [facility] Last Admin: 09/07/16 09:16 Dose: 81 mg Atorvastatin Calcium (Lipitor -) 40 mg PO DAILY [facility] Last Admin: 09/06/16 13:43 Dose: 40 mg Docusate Sodium (Colace -) 300 mg PO DAILY [facility] Last Admin: 09/07/16 09:16 Dose: 300 mg Enoxaparin Sodium (Lovenox -) 120 mg SQ DAILY@2300 [facility] Last Admin: 09/06/16 22:46 Dose: 120 mg Furosemide (Lasix -) 20 mg PO DAILY [facility] Last Admin: 09/07/16 09:16 Dose: 20 mg Guaifenesin/Codeine Phosphate (Robitussin Ac -) 5 ml PO TID PRN PRN Reason: COUGH Last Admin: 09/06/16 21:29 Dose: 5 ml Insulin Aspart (Novolog Vial) 15 units SQ TIDAC [facility] Last Admin: 09/07/16 12:13 Dose: 15 units Insulin Detemir (Levemir Vial) 25 units SQ BID@0700,2200 [facility] Last Admin: 09/07/16 06:18 Dose: 25 units Levothyroxine Sodium (Synthroid -) 100 mcg PO DAILY@0700 [facility] Last Admin: 09/07/16 06:21 Dose: 100 mcg Losartan Potassium (Cozaar -) 50 mg PO BID [facility] Last Admin: 09/07/16 09:21 Dose: 50 mg Methylprednisolone Sodium Succinate (Solu-Medrol -) 40 mg IVPB BID [facility] Last Admin: 09/07/16 09:15 Dose: 40 mg Montelukast Sodium (Singulair -) 10 mg PO HS [facility] Last Admin: 09/06/16 21:20 Dose: 10 mg Nystatin (Nystop Powder -) 1 applic TP BID [facility] Last Admin: 09/07/16 09:22 Dose: 1 applic Oxycodone HCl (Roxicodone -) 15 mg PO Q8H PRN PRN Reason: PAIN Last Admin: 09/07/16 09:14 Dose: 15 mg Polyethylene Glycol (Miralax (For Daily Use) -) 17 gm PO DAILY [facility] Last Admin: 09/07/16 09:17 Dose: 17 gm Tamoxifen Citrate (Tamoxifen Citrate) 20 mg PO BID [facility] Last Admin: 09/07/16 09:18 Dose: 20 mg Tobramycin Sulfate (Tobrex Ophthalmic Solution -) 1 drop OU Q6HPO [facility] Last Admin: 09/07/16 11:59 Dose: 1 drop - Objective Vital Signs: Vital Signs Temperature 98.9 F 09/07/16 15:34 Pulse Rate 93 H 09/07/16 15:34 Respiratory Rate 20 05/26/17 15:34 Blood Pressure 129/52 09/07/16 15:34 O2 Sat by Pulse Oximetry (%) 97 09/07/16 11:18 Constitutional: Yes: Calm Eyes: Yes: WNL HENT: Yes: WNL Neck: Yes: WNL Cardiovascular: Yes: Regular Rate and Rhythm Respiratory: Yes: Diminished Gastrointestinal: Yes: Soft ...Rectal Exam: Yes: Deferred Genitourinary: No: Anuria Musculoskeletal: Yes: Muscle Weakness Extremities: Yes: Cool Edema: No Peripheral Pulses WNL: Yes Integumentary: Yes: WNL Neurological: Yes: Alert, Oriented, Weakness Psychiatric: Yes: Other (anxeity) Labs: CBC, BMP 09/06/16 06:30 09/06/16 06:30 INR, PTT INR 1.08 (0.82-1.09) 09/06/16 06:30 Problem List - Problems (1) Cervical cancer Code(s): C53.9 - MALIGNANT NEOPLASM OF CERVIX UTERI, UNSPECIFIED (2) Pulmonary emboli Assessment/Plan: Hx PE. On Lovenox 120 mg daily. Code(s): I26.99 - OTHER PULMONARY EMBOLISM WITHOUT ACUTE COR PULMONALE (3) Primary cervical cancer with metastasis to other site Assessment/Plan: f/u ECHO this admission: normal LVEF; abnormal diastolic compliance; mild LAE; mild MR, TR, [place]. Code(s): C53.9 - MALIGNANT NEOPLASM OF CERVIX UTERI, UNSPECIFIED C79.9 - SECONDARY MALIGNANT NEOPLASM OF UNSPECIFIED SITE (4) Hypertension Assessment/Plan: On ARB; increase dose if BP remains elevated (better-controlled today). On furosemide (avoid dehydration). Code(s): I10 - ESSENTIAL (PRIMARY) HYPERTENSION Qualifiers: Qualified Code(s): I10 - Essential (primary) hypertension (5) Hypothyroidism Assessment/Plan: on synthroid; TSH WNL. Code(s): E03.9 - HYPOTHYROIDISM, UNSPECIFIED Qualifiers: Qualified Code(s): E03.9 - Hypothyroidism, unspecified (6) Diabetes Code(s): E11.9 - TYPE 2 DIABETES MELLITUS WITHOUT COMPLICATIONS (7) Atypical chest pain Assessment/Plan: Pt says the chest pain only occurs after bout of prolonged coughing; she has been coughing much less lately, and has not had further chest pain. TNI < 0.02 x 4.. LDL cholesterol >180 mg/dL; started atorvastatin 40 mg daily. Code(s): R07.89 - OTHER CHEST PAIN (8) Obesity Code(s): E66.9 - OBESITY, UNSPECIFIED
[2016-09-07] MEDS: ATORVASTATIN CA 40 MG TABLET (FP) PO SCH ×2 (17:47→17:57)
--- NOTE | 2016-09-07 18:47 | PN ---
Progress Note, Physician History of Present Illness: MY FIRST ENCOUNTER WITH THIS PATIENT COVERING DR PINEDA - Current Medication List Current Medications: Active Medications Albuterol/Ipratropium (Duoneb -) 1 amp NEB Q6H PRN PRN Reason: SHORT OF BREATH/WHEEZING Last Admin: 09/06/16 02:10 Dose: 1 amp Alprazolam (Xanax -) 0.25 mg PO Q6H PRN PRN Reason: ANXIETY Last Admin: 09/07/16 12:45 Dose: 0.25 mg Aspirin (Asa -) 81 mg PO DAILY [facility] Last Admin: 09/07/16 09:16 Dose: 81 mg Atorvastatin Calcium (Lipitor -) 40 mg PO DAILY [facility] Last Admin: 09/07/16 17:47 Dose: 40 mg Docusate Sodium (Colace -) 300 mg PO DAILY [facility] Last Admin: 09/07/16 09:16 Dose: 300 mg Enoxaparin Sodium (Lovenox -) 120 mg SQ DAILY@2300 [facility] Last Admin: 09/06/16 22:46 Dose: 120 mg Furosemide (Lasix -) 20 mg PO DAILY [facility] Last Admin: 09/07/16 09:16 Dose: 20 mg Guaifenesin/Codeine Phosphate (Robitussin Ac -) 5 ml PO TID PRN PRN Reason: COUGH Last Admin: 09/06/16 21:29 Dose: 5 ml Insulin Aspart (Novolog Vial) 15 units SQ TIDAC [facility] Last Admin: 09/07/16 17:38 Dose: 15 units Insulin Detemir (Levemir Vial) 25 units SQ BID@0700,2200 [facility] Last Admin: 09/07/16 06:18 Dose: 25 units Levothyroxine Sodium (Synthroid -) 100 mcg PO DAILY@0700 [facility] Last Admin: 09/07/16 06:21 Dose: 100 mcg Losartan Potassium (Cozaar -) 50 mg PO BID [facility] Last Admin: 09/07/16 09:21 Dose: 50 mg Methylprednisolone Sodium Succinate (Solu-Medrol -) 40 mg IVPB BID [facility] Last Admin: 09/07/16 09:15 Dose: 40 mg Montelukast Sodium (Singulair -) 10 mg PO HS [facility] Last Admin: 09/06/16 21:20 Dose: 10 mg Nystatin (Nystop Powder -) 1 applic TP BID [facility] Last Admin: 09/07/16 09:22 Dose: 1 applic Oxycodone HCl (Roxicodone -) 15 mg PO Q8H PRN PRN Reason: PAIN Last Admin: 09/07/16 17:33 Dose: 15 mg Polyethylene Glycol (Miralax (For Daily Use) -) 17 gm PO DAILY [facility] Last Admin: 09/07/16 09:17 Dose: 17 gm Tamoxifen Citrate (Tamoxifen Citrate) 20 mg PO BID [facility] Last Admin: 09/07/16 09:18 Dose: 20 mg Tobramycin Sulfate (Tobrex Ophthalmic Solution -) 1 drop OU Q6HPO [facility] Last Admin: 09/07/16 17:37 Dose: 1 drop - Objective Vital Signs: Vital Signs Temperature 98.9 F 09/07/16 15:34 Pulse Rate 93 H 09/07/16 15:34 Respiratory Rate 20 09/07/16 15:34 Blood Pressure 129/52 09/07/16 15:34 O2 Sat by Pulse Oximetry (%) 97 09/07/16 11:18 Constitutional: Yes: No Distress HENT: Yes: Atraumatic Neck: Yes: Supple Cardiovascular: Yes: Regular Rate and Rhythm Respiratory: Yes: CTA Bilaterally Gastrointestinal: Yes: Normal Bowel Sounds Extremities: Yes: WNL Peripheral Pulses WNL: Yes Neurological: Yes: Alert, Oriented Labs: CBC, BMP 09/06/16 06:30 09/06/16 06:30 INR, PTT INR 1.08 (0.82-1.09) 09/06/16 06:30 Assessment/Plan Problem List - Problems (1) Cervical cancer Code(s): C53.9 - MALIGNANT NEOPLASM OF CERVIX UTERI, UNSPECIFIED (2) Pulmonary emboli Assessment/Plan: Hx PE. On Lovenox 120 mg daily. Code(s): I26.99 - OTHER PULMONARY EMBOLISM WITHOUT ACUTE COR PULMONALE (3) Primary cervical cancer with metastasis to other site Assessment/Plan: Code(s): C53.9 - MALIGNANT NEOPLASM OF CERVIX UTERI, UNSPECIFIED C79.9 - SECONDARY MALIGNANT NEOPLASM OF UNSPECIFIED SITE (4) Hypertension Assessment/Plan: On ARB; AND LASIX...MONITOR BP AND LABS Code(s): I10 - ESSENTIAL (PRIMARY) HYPERTENSION Qualifiers: Qualified Code(s): I10 - Essential (primary) hypertension (5) Hypothyroidism Assessment/Plan: on synthroid; TSH WNL. Code(s): E03.9 - HYPOTHYROIDISM, UNSPECIFIED Qualifiers: Qualified Code(s): E03.9 - Hypothyroidism, unspecified (6) Diabetes Code(s): E11.9 - TYPE 2 DIABETES MELLITUS WITHOUT COMPLICATIONS (7) Atypical chest pain Assessment/Plan: RESOLVED...NO COMPLAINTS Code(s): R07.89 - OTHER CHEST PAIN (8) Obesity Code(s): E66.9 - OBESITY, UNSPECIFIED
[2016-09-07] MEDS ORDERED: ATORVASTATIN CA 40 MG TABLET (FP) PO SCH (22:00)
[2016-09-07] MEDS: MONTELUKAST NA 10 MG TABLET PO SCH (23:04)
[2016-09-07] MEDS: ENOXAPARIN NA (PORCINE) 120 MG/0.8 ML DISP.SYRIN SQ SCH (23:05)
[2016-09-07] MEDS: guaiFENesin/CODEINE 5 ML UNIT-DOSE CUPS PO PRN (23:07)
[2016-09-08] MEDS: oxyCODONE HCL 5 MG TABLET PO PRN ×3 (02:07→21:27)
[2016-09-08] MEDS: ALBUTEROL SO4 2.5/IPRATROPIUM 0.5 INH SOL 3 ML VIAL.NEB. NEB PRN (06:22)
[2016-09-08] MEDS: TOBRAMYCIN 0.3% OPHTH SOLN 5 ML BOTTLE OU SCH ×3 (06:33→17:22)
[2016-09-08] MEDS: INSULIN DETEMIR 100 UNITS/ML MDV SQ SCH ×2 (06:33→21:40)
[2016-09-08] MEDS: INSULIN (NOVOLOG) ASPART 100 UNITS/ML 10ML VIAL SQ SCH ×3 (06:34→17:21)
[2016-09-08] MEDS: ALPRAZolam 0.25 MG TABLET PO PRN ×3 (06:35→18:57)
[2016-09-08] MEDS: LEVOTHYROXINE NA 100 MCG TABLET (FP) PO SCH (06:35)
[2016-09-08] MEDS: guaiFENesin/CODEINE 5 ML UNIT-DOSE CUPS PO PRN ×2 (06:41→21:28)
[2016-09-08] MEDS ORDERED: INSULIN (NOVOLOG) ASPART 100 UNITS/ML 10ML VIAL ONE (07:08)
[2016-09-08] MEDS ORDERED: INSULIN DETEMIR 100 UNITS/ML MDV SQ ONE (07:08)
[2016-09-08] MEDS ORDERED: PT OWN MED DRAWER 7, Y5N ONE ×4 (07:10→17:19)
--- NOTE | 2016-09-08 09:44 | PN ---
Progress Note, Physician - Current Medication List Current Medications: Active Medications Albuterol/Ipratropium (Duoneb -) 1 amp NEB Q6H PRN PRN Reason: SHORT OF BREATH/WHEEZING Last Admin: 09/08/16 06:22 Dose: 1 amp Alprazolam (Xanax -) 0.25 mg PO Q6H PRN PRN Reason: ANXIETY Last Admin: 09/08/16 06:35 Dose: 0.25 mg Aspirin (Asa -) 81 mg PO DAILY [facility] Last Admin: 09/07/16 09:16 Dose: 81 mg Atorvastatin Calcium (Lipitor -) 40 mg PO DAILY [facility] Last Admin: 09/07/16 17:47 Dose: 40 mg Docusate Sodium (Colace -) 300 mg PO DAILY [facility] Last Admin: 09/07/16 09:16 Dose: 300 mg Enoxaparin Sodium (Lovenox -) 120 mg SQ DAILY@2300 [facility] Last Admin: 09/07/16 23:05 Dose: 120 mg Furosemide (Lasix -) 20 mg PO DAILY [facility] Last Admin: 09/07/16 09:16 Dose: 20 mg Guaifenesin/Codeine Phosphate (Robitussin Ac -) 5 ml PO TID PRN PRN Reason: COUGH Last Admin: 09/08/16 06:41 Dose: 5 ml Insulin Aspart (Novolog Vial) 15 units SQ TIDAC [facility] Last Admin: 09/08/16 06:34 Dose: 15 units Insulin Detemir (Levemir Vial) 25 units SQ BID@0700,2200 [facility] Last Admin: 09/08/16 06:33 Dose: 25 units Levothyroxine Sodium (Synthroid -) 100 mcg PO DAILY@0700 [facility] Last Admin: 09/08/16 06:35 Dose: 100 mcg Losartan Potassium (Cozaar -) 50 mg PO BID [facility] Last Admin: 09/07/16 23:03 Dose: 50 mg Methylprednisolone Sodium Succinate (Solu-Medrol -) 40 mg IVPB BID [facility] Last Admin: 09/07/16 23:05 Dose: 40 mg Montelukast Sodium (Singulair -) 10 mg PO HS [facility] Last Admin: 09/07/16 23:04 Dose: 10 mg Nystatin (Nystop Powder -) 1 applic TP BID [facility] Last Admin: 09/07/16 23:18 Dose: 1 applic Oxycodone HCl (Roxicodone -) 15 mg PO Q8H PRN PRN Reason: PAIN Last Admin: 09/08/16 02:07 Dose: 15 mg Polyethylene Glycol (Miralax (For Daily Use) -) 17 gm PO DAILY [facility] Last Admin: 09/07/16 09:17 Dose: 17 gm Tamoxifen Citrate (Tamoxifen Citrate) 20 mg PO BID [facility] Last Admin: 09/07/16 23:05 Dose: 20 mg Tobramycin Sulfate (Tobrex Ophthalmic Solution -) 1 drop OU Q6HPO [facility] Last Admin: 09/08/16 06:33 Dose: 1 drop - Objective Vital Signs: Vital Signs Temperature 98.1 F 09/08/16 06:00 Pulse Rate 75 09/08/16 06:00 Respiratory Rate 18 09/08/16 06:00 Blood Pressure 112/51 09/08/16 06:00 O2 Sat by Pulse Oximetry (%) 100 09/07/16 21:00 Eyes: Yes: WNL, Conjunctiva Clear, EOM Intact HENT: Yes: WNL, Atraumatic, Normocephalic Neck: Yes: WNL, Supple, Trachea Midline Cardiovascular: Yes: WNL, Regular Rate and Rhythm Respiratory: Yes: WNL, Regular, CTA Bilaterally Gastrointestinal: Yes: WNL, Normal Bowel Sounds Genitourinary: Yes: WNL Musculoskeletal: Yes: WNL Extremities: Yes: WNL Edema: No Integumentary: Yes: WNL Neurological: Yes: WNL, Alert, Oriented ...Motor Strength: WNL Psychiatric: Yes: WNL Labs: CBC, BMP 09/06/16 06:30 09/06/16 06:30 INR, PTT INR 1.08 (0.82-1.09) 09/06/16 06:30 Assessment/Plan Problems (1) Cervical cancer Code(s): C53.9 - MALIGNANT NEOPLASM OF CERVIX UTERI, UNSPECIFIED (2) Pulmonary emboli Assessment/Plan: Hx PE. On Lovenox 120 mg daily. Code(s): I26.99 - OTHER PULMONARY EMBOLISM WITHOUT ACUTE COR PULMONALE (3) Primary cervical cancer with metastasis to other site Assessment/Plan: f/u ECHO this admission: normal LVEF; abnormal diastolic compliance; mild LAE; mild MR, TR, [place]. Code(s): C53.9 - MALIGNANT NEOPLASM OF CERVIX UTERI, UNSPECIFIED C79.9 - SECONDARY MALIGNANT NEOPLASM OF UNSPECIFIED SITE (4) Hypertension Assessment/Plan: On ARB; increase dose if BP remains elevated (better-controlled today). On furosemide (avoid dehydration). Code(s): I10 - ESSENTIAL (PRIMARY) HYPERTENSION Qualifiers: Qualified Code(s): I10 - Essential (primary) hypertension (5) Hypothyroidism Assessment/Plan: on synthroid; TSH WNL. Code(s): E03.9 - HYPOTHYROIDISM, UNSPECIFIED Qualifiers: Qualified Code(s): E03.9 - Hypothyroidism, unspecified (6) Diabetes Code(s): E11.9 - TYPE 2 DIABETES MELLITUS WITHOUT COMPLICATIONS (7) Atypical chest pain Assessment/Plan: Pt says the chest pain only occurs after bout of prolonged coughing; she has been coughing much less lately, and has not had further chest pain. TNI < 0.02 x 4.. LDL cholesterol >180 mg/dL; started atorvastatin 40 mg daily. Code(s): R07.89 - OTHER CHEST PAIN (8) Obesity Code(s): E66.9 - OBESITY, UNSPECIFIED
[2016-09-08] MEDS: methylPREDNISolone NA SUCC 40 MG/1 ML VIAL IVPB SCH ×2 (10:21→21:38)
[2016-09-08] MEDS: DOCUSATE SODIUM 100 MG CAPSULE (FP) PO SCH (10:21)
[2016-09-08] MEDS: FUROSEMIDE 20 MG TABLET (FP) PO SCH (10:21)
[2016-09-08] MEDS: LOSARTAN POTASSIUM 50 MG TABLET (FP) PO SCH ×2 (10:21→21:28)
[2016-09-08] MEDS: ATORVASTATIN CA 40 MG TABLET (FP) PO SCH ×2 (10:22→18:57)
[2016-09-08] MEDS: POLYETHYLENE GLYCOL 3350 119 GM BTL PO SCH (10:23)
[2016-09-08] MEDS: ASPIRIN 81 MG CHEWABLE TABLETS PO SCH (10:23)
[2016-09-08] MEDS: TAMOXIFEN CITRATE 10 MG TABLET PO SCH ×2 (10:23→21:28)
[2016-09-08] MEDS: NYSTATIN POWDER 100,000 UNITS/GM - 15 GM TOPICAL POWDER TP SCH ×2 (10:24→21:28)
--- NOTE | 2016-09-08 11:56 | PN ---
Progress Note, Physician History of Present Illness: No new change - Current Medication List Current Medications: Active Medications Albuterol/Ipratropium (Duoneb -) 1 amp NEB Q6H PRN PRN Reason: SHORT OF BREATH/WHEEZING Last Admin: 09/08/16 06:22 Dose: 1 amp Alprazolam (Xanax -) 0.25 mg PO Q6H PRN PRN Reason: ANXIETY Last Admin: 09/08/16 06:35 Dose: 0.25 mg Aspirin (Asa -) 81 mg PO DAILY [facility] Last Admin: 09/08/16 10:23 Dose: 81 mg Atorvastatin Calcium (Lipitor -) 40 mg PO DAILY [facility] Last Admin: 09/07/16 17:47 Dose: 40 mg Docusate Sodium (Colace -) 300 mg PO DAILY [facility] Last Admin: 09/08/16 10:21 Dose: 300 mg Enoxaparin Sodium (Lovenox -) 120 mg SQ DAILY@2300 [facility] Last Admin: 09/07/16 23:05 Dose: 120 mg Furosemide (Lasix -) 20 mg PO DAILY [facility] Last Admin: 09/08/16 10:21 Dose: 20 mg Guaifenesin/Codeine Phosphate (Robitussin Ac -) 5 ml PO TID PRN PRN Reason: COUGH Last Admin: 09/08/16 06:41 Dose: 5 ml Insulin Aspart (Novolog Vial) 15 units SQ TIDAC [facility] Last Admin: 09/08/16 06:34 Dose: 15 units Insulin Detemir (Levemir Vial) 25 units SQ BID@0700,2200 [facility] Last Admin: 09/08/16 06:33 Dose: 25 units Levothyroxine Sodium (Synthroid -) 100 mcg PO DAILY@0700 [facility] Last Admin: 09/08/16 06:35 Dose: 100 mcg Losartan Potassium (Cozaar -) 50 mg PO BID [facility] Last Admin: 09/08/16 10:21 Dose: 50 mg Methylprednisolone Sodium Succinate (Solu-Medrol -) 40 mg IVPB BID [facility] Last Admin: 09/08/16 10:21 Dose: 40 mg Montelukast Sodium (Singulair -) 10 mg PO HS [facility] Last Admin: 09/07/16 23:04 Dose: 10 mg Nystatin (Nystop Powder -) 1 applic TP BID [facility] Last Admin: 09/08/16 10:24 Dose: 1 applic Oxycodone HCl (Roxicodone -) 15 mg PO Q8H PRN PRN Reason: PAIN Last Admin: 09/08/16 10:22 Dose: 15 mg Polyethylene Glycol (Miralax (For Daily Use) -) 17 gm PO DAILY [facility] Last Admin: 09/08/16 10:23 Dose: 17 gm Tamoxifen Citrate (Tamoxifen Citrate) 20 mg PO BID [facility] Last Admin: 09/08/16 10:23 Dose: 20 mg Tobramycin Sulfate (Tobrex Ophthalmic Solution -) 1 drop OU Q6HPO [facility] Last Admin: 09/08/16 06:33 Dose: 1 drop - Objective Vital Signs: Vital Signs Temperature 98.2 F 09/08/16 09:55 Pulse Rate 86 09/08/16 09:55 Respiratory Rate 18 09/08/16 09:55 Blood Pressure 125/66 09/08/16 09:55 O2 Sat by Pulse Oximetry (%) 100 09/07/16 21:00 Constitutional: Yes: Well Nourished Eyes: Yes: WNL HENT: Yes: WNL Neck: Yes: WNL Cardiovascular: Yes: WNL Respiratory: Yes: Diminished Gastrointestinal: Yes: WNL, Normal Bowel Sounds, Soft, Abdomen, Obese Labs: CBC, BMP 09/06/16 06:30 09/06/16 06:30 INR, PTT INR 1.08 (0.82-1.09) 09/06/16 06:30 Problem List - Problems (1) Acute asthma exacerbation Code(s): J45.901 - UNSPECIFIED ASTHMA WITH (ACUTE) EXACERBATION (2) Chest pain Code(s): R07.9 - CHEST PAIN, UNSPECIFIED Qualifiers: Qualified Code(s): R07.9 - Chest pain, unspecified (3) Obesity Code(s): E66.9 - OBESITY, UNSPECIFIED (4) Anxiety Code(s): F41.9 - ANXIETY DISORDER, UNSPECIFIED (5) Diabetes Code(s): E11.9 - TYPE 2 DIABETES MELLITUS WITHOUT COMPLICATIONS (6) History of DVT of lower extremity Code(s): Z86.718 - PERSONAL HISTORY OF OTHER VENOUS THROMBOSIS AND EMBOLISM (7) Hyperlipidemia Code(s): E78.5 - HYPERLIPIDEMIA, UNSPECIFIED Qualifiers: Qualified Code(s): E78.5 - Hyperlipidemia, unspecified (8) Hypertension Code(s): I10 - ESSENTIAL (PRIMARY) HYPERTENSION Qualifiers: Qualified Code(s): I10 - Essential (primary) hypertension (9) Hypothyroidism Code(s): E03.9 - HYPOTHYROIDISM, UNSPECIFIED Qualifiers: Qualified Code(s): E03.9 - Hypothyroidism, unspecified Assessment/Plan 1. Exacerbation COPD Cont IV steroids/antibxs Cont nebulizers Pulmonary consult 2. Metastatic breast cancer 3. HTN 4. Diabetes
[2016-09-08] MEDS: MONTELUKAST NA 10 MG TABLET PO SCH (21:28)
[2016-09-08] MEDS: ENOXAPARIN NA (PORCINE) 120 MG/0.8 ML DISP.SYRIN SQ SCH (23:33)
[2016-09-09] MEDS: TOBRAMYCIN 0.3% OPHTH SOLN 5 ML BOTTLE OU SCH ×5 (00:32→23:23)
[2016-09-09] MEDS: oxyCODONE HCL 5 MG TABLET PO PRN ×3 (05:39→22:13)
[2016-09-09] MEDS: ALPRAZolam 0.25 MG TABLET PO PRN ×5 (05:39→23:23)
[2016-09-09] MEDS: INSULIN (NOVOLOG) ASPART 100 UNITS/ML 10ML VIAL SQ SCH ×3 (06:09→17:59)
[2016-09-09] MEDS: INSULIN DETEMIR 100 UNITS/ML MDV SQ SCH ×2 (06:09→22:21)
[2016-09-09] MEDS: LEVOTHYROXINE NA 100 MCG TABLET (FP) PO SCH (06:10)
[2016-09-09] MEDS ORDERED: PT OWN MED DRAWER 7, Y5N ONE ×3 (09:12→18:02)
[2016-09-09] MEDS: DOCUSATE SODIUM 100 MG CAPSULE (FP) PO SCH (09:35)
[2016-09-09] MEDS: LOSARTAN POTASSIUM 50 MG TABLET (FP) PO SCH ×2 (09:36→22:12)
[2016-09-09] MEDS: FUROSEMIDE 20 MG TABLET (FP) PO SCH (09:36)
[2016-09-09] MEDS: ATORVASTATIN CA 40 MG TABLET (FP) PO SCH ×2 (09:36→17:59)
[2016-09-09] MEDS: ASPIRIN 81 MG CHEWABLE TABLETS PO SCH (09:36)
[2016-09-09] MEDS: TAMOXIFEN CITRATE 10 MG TABLET PO SCH ×2 (09:37→22:12)
[2016-09-09] MEDS: NYSTATIN POWDER 100,000 UNITS/GM - 15 GM TOPICAL POWDER TP SCH ×2 (09:37→22:13)
[2016-09-09] MEDS: methylPREDNISolone NA SUCC 40 MG/1 ML VIAL IVPB SCH ×2 (09:37→22:12)
[2016-09-09] MEDS: POLYETHYLENE GLYCOL 3350 119 GM BTL PO SCH (09:38)
--- NOTE | 2016-09-09 10:01 | PN ---
Progress Note, Physician - Current Medication List Current Medications: Active Medications Albuterol/Ipratropium (Duoneb -) 1 amp NEB Q6H PRN PRN Reason: SHORT OF BREATH/WHEEZING Last Admin: 09/08/16 06:22 Dose: 1 amp Alprazolam (Xanax -) 0.25 mg PO Q6H PRN PRN Reason: ANXIETY Last Admin: 09/09/16 05:39 Dose: 0.25 mg Aspirin (Asa -) 81 mg PO DAILY [facility] Last Admin: 09/09/16 09:36 Dose: 81 mg Atorvastatin Calcium (Lipitor -) 40 mg PO DAILY [facility] Last Admin: 09/08/16 18:57 Dose: 40 mg Docusate Sodium (Colace -) 300 mg PO DAILY [facility] Last Admin: 09/09/16 09:35 Dose: 300 mg Enoxaparin Sodium (Lovenox -) 120 mg SQ DAILY@2300 [facility] Last Admin: 09/08/16 23:33 Dose: 120 mg Furosemide (Lasix -) 20 mg PO DAILY [facility] Last Admin: 09/09/16 09:36 Dose: 20 mg Guaifenesin/Codeine Phosphate (Robitussin Ac -) 5 ml PO TID PRN PRN Reason: COUGH Last Admin: 09/08/16 21:28 Dose: 5 ml Guaifenesin/Codeine Phosphate (Robitussin Ac -) 5 ml PO TID PRN PRN Reason: COUGH Insulin Aspart (Novolog Vial) 15 units SQ TIDAC [facility] Last Admin: 09/09/16 06:09 Dose: 15 units Insulin Detemir (Levemir Vial) 35 units SQ BID@0700,2200 [facility] Last Admin: 09/09/16 06:09 Dose: 35 units Levothyroxine Sodium (Synthroid -) 100 mcg PO DAILY@0700 [facility] Last Admin: 09/09/16 06:10 Dose: 100 mcg Losartan Potassium (Cozaar -) 50 mg PO BID [facility] Last Admin: 09/09/16 09:36 Dose: 50 mg Methylprednisolone Sodium Succinate (Solu-Medrol -) 40 mg IVPB BID [facility] Last Admin: 09/09/16 09:37 Dose: 40 mg Montelukast Sodium (Singulair -) 10 mg PO HS [facility] Last Admin: 09/08/16 21:28 Dose: 10 mg Nystatin (Nystop Powder -) 1 applic TP BID [facility] Last Admin: 09/09/16 09:37 Dose: 1 applic Oxycodone HCl (Roxicodone -) 15 mg PO Q8H PRN PRN Reason: PAIN Last Admin: 09/09/16 05:39 Dose: 15 mg Polyethylene Glycol (Miralax (For Daily Use) -) 17 gm PO DAILY [facility] Last Admin: 09/09/16 09:38 Dose: 17 gm Tamoxifen Citrate (Tamoxifen Citrate) 20 mg PO BID [facility] Last Admin: 09/09/16 09:37 Dose: 20 mg Tobramycin Sulfate (Tobrex Ophthalmic Solution -) 1 drop OU Q6HPO [facility] Last Admin: 09/09/16 06:08 Dose: 1 drop - Objective Vital Signs: Vital Signs Temperature 98.3 F 09/09/16 06:00 Pulse Rate 81 09/09/16 06:00 Respiratory Rate 20 09/09/16 06:00 Blood Pressure 113/71 09/09/16 06:00 O2 Sat by Pulse Oximetry (%) 100 09/08/16 22:00 Eyes: Yes: WNL, Conjunctiva Clear, EOM Intact HENT: Yes: WNL, Atraumatic, Normocephalic Neck: Yes: WNL, Supple, Trachea Midline Cardiovascular: Yes: WNL, Regular Rate and Rhythm Respiratory: Yes: WNL, Regular, CTA Bilaterally Gastrointestinal: Yes: WNL, Normal Bowel Sounds Genitourinary: Yes: WNL Musculoskeletal: Yes: WNL Extremities: Yes: WNL Edema: No Integumentary: Yes: WNL Neurological: Yes: WNL, Alert, Oriented ...Motor Strength: WNL Psychiatric: Yes: WNL Labs: CBC, BMP 09/06/16 06:30 09/08/16 16:55 INR, PTT INR 1.08 (0.82-1.09) 09/06/16 06:30 Assessment/Plan Problems (1) Cervical cancer Code(s): C53.9 - MALIGNANT NEOPLASM OF CERVIX UTERI, UNSPECIFIED (2) Pulmonary emboli Assessment/Plan: Hx PE. On Lovenox 120 mg daily. Code(s): I26.99 - OTHER PULMONARY EMBOLISM WITHOUT ACUTE COR PULMONALE (3) Primary cervical cancer with metastasis to other site Assessment/Plan: f/u ECHO this admission: normal LVEF; abnormal diastolic compliance; mild LAE; mild MR, TR, [place]. Code(s): C53.9 - MALIGNANT NEOPLASM OF CERVIX UTERI, UNSPECIFIED C79.9 - SECONDARY MALIGNANT NEOPLASM OF UNSPECIFIED SITE (4) Hypertension Assessment/Plan: On ARB; increase dose if BP remains elevated (better-controlled today). On furosemide (avoid dehydration). Code(s): I10 - ESSENTIAL (PRIMARY) HYPERTENSION Qualifiers: Qualified Code(s): I10 - Essential (primary) hypertension (5) Hypothyroidism Assessment/Plan: on synthroid; TSH WNL. Code(s): E03.9 - HYPOTHYROIDISM, UNSPECIFIED Qualifiers: Qualified Code(s): E03.9 - Hypothyroidism, unspecified (6) Diabetes Code(s): E11.9 - TYPE 2 DIABETES MELLITUS WITHOUT COMPLICATIONS (7) Atypical chest pain Assessment/Plan: Pt says the chest pain only occurs after bout of prolonged coughing; she has been coughing much less lately, and has not had further chest pain. TNI < 0.02 x 4.. LDL cholesterol >180 mg/dL; started atorvastatin 40 mg daily. Code(s): R07.89 - OTHER CHEST PAIN (8) Obesity Code(s): E66.9 - OBESITY, UNSPECIFIED
[2016-09-09] MEDS: guaiFENesin/CODEINE 5 ML UNIT-DOSE CUPS PO PRN ×2 (11:31→22:10)
--- NOTE | 2016-09-09 15:15 | PN ---
Progress Note (short form) - Note Progress Note: Overall feeling better. Some residual cough. Intake & Output 09/06/16 09/07/16 09/08/16 09/09/16 23:59 23:59 23:59 23:59 Intake Total 1250 1200 1845 825 Balance 1250 1200 1845 825 Last Vital Signs Temp Pulse Resp BP Pulse Ox 98.5 F 84 22 111/52 100 09/09/16 14:21 09/09/16 14:21 09/09/16 14:21 09/09/16 14:21 09/08/16 22:00 Active Medications Albuterol/Ipratropium (Duoneb -) 1 amp NEB Q6H PRN PRN Reason: SHORT OF BREATH/WHEEZING Last Admin: 09/08/16 06:22 Dose: 1 amp Alprazolam (Xanax -) 0.25 mg PO Q6H PRN PRN Reason: ANXIETY Last Admin: 09/09/16 12:12 Dose: 0.25 mg Aspirin (Asa -) 81 mg PO DAILY [facility] Last Admin: 09/09/16 09:36 Dose: 81 mg Atorvastatin Calcium (Lipitor -) 40 mg PO DAILY [facility] Last Admin: 09/08/16 18:57 Dose: 40 mg Docusate Sodium (Colace -) 300 mg PO DAILY [facility] Last Admin: 09/09/16 09:35 Dose: 300 mg Enoxaparin Sodium (Lovenox -) 120 mg SQ DAILY@2300 [facility] Last Admin: 09/08/16 23:33 Dose: 120 mg Furosemide (Lasix -) 20 mg PO DAILY [facility] Last Admin: 09/09/16 09:36 Dose: 20 mg Guaifenesin/Codeine Phosphate (Robitussin Ac -) 5 ml PO TID PRN PRN Reason: COUGH Insulin Aspart (Novolog Vial) 15 units SQ TIDAC [facility] Last Admin: 09/09/16 12:12 Dose: 15 units Insulin Detemir (Levemir Vial) 35 units SQ BID@0700,2200 [facility] Last Admin: 09/09/16 06:09 Dose: 35 units Levothyroxine Sodium (Synthroid -) 100 mcg PO DAILY@0700 [facility] Last Admin: 09/09/16 06:10 Dose: 100 mcg Losartan Potassium (Cozaar -) 50 mg PO BID [facility] Last Admin: 09/09/16 09:36 Dose: 50 mg Methylprednisolone Sodium Succinate (Solu-Medrol -) 40 mg IVPB BID [facility] Last Admin: 09/09/16 09:37 Dose: 40 mg Montelukast Sodium (Singulair -) 10 mg PO HS [facility] Last Admin: 09/08/16 21:28 Dose: 10 mg Nystatin (Nystop Powder -) 1 applic TP BID [facility] Last Admin: 09/09/16 09:37 Dose: 1 applic Oxycodone HCl (Roxicodone -) 15 mg PO Q8H PRN PRN Reason: PAIN Last Admin: 09/09/16 13:58 Dose: 15 mg Polyethylene Glycol (Miralax (For Daily Use) -) 17 gm PO DAILY [facility] Last Admin: 09/09/16 09:38 Dose: 17 gm Tamoxifen Citrate (Tamoxifen Citrate) 20 mg PO BID [facility] Last Admin: 09/09/16 09:37 Dose: 20 mg Tobramycin Sulfate (Tobrex Ophthalmic Solution -) 1 drop OU Q6HPO [facility] Last Admin: 09/09/16 12:12 Dose: 1 drop Constitutional: Yes: NAD Eyes: Yes: WNL HENT: Yes: WNL Neck: Yes: WNL Cardiovascular: Yes: Regular Rate and Rhythm, S1, S2 Respiratory: Yes: Scattered bilateral rhonchi Gastrointestinal: Yes: Normal Bowel Sounds, Soft Extremities: Yes: WNL Edema: No Labs: Laboratory Results - last 24 hr 09/08/16 09/08/16 09/09/16 16:55 21:39 05:35 POC Glucometer 287 318 Random Glucose 472 H* 09/09/16 11:26 POC Glucometer 154 Random Glucose Problem List - Problems (1) Acute asthma exacerbation Code(s): J45.901 - UNSPECIFIED ASTHMA WITH (ACUTE) EXACERBATION (2) Chest pain Code(s): R07.9 - CHEST PAIN, UNSPECIFIED Qualifiers: Qualified Code(s): R07.9 - Chest pain, unspecified (3) Primary cervical cancer with metastasis to other site Code(s): C53.9 - MALIGNANT NEOPLASM OF CERVIX UTERI, UNSPECIFIED C79.9 - SECONDARY MALIGNANT NEOPLASM OF UNSPECIFIED SITE (4) Pulmonary emboli Code(s): I26.99 - OTHER PULMONARY EMBOLISM WITHOUT ACUTE COR PULMONALE (5) Cervical cancer Code(s): C53.9 - MALIGNANT NEOPLASM OF CERVIX UTERI, UNSPECIFIED (6) Fever Code(s): R50.9 - FEVER, UNSPECIFIED (7) Metastasis to lung Code(s): C78.00 - SECONDARY MALIGNANT NEOPLASM OF UNSPECIFIED LUNG (8) Metastatic disease Code(s): C79.9 - SECONDARY MALIGNANT NEOPLASM OF UNSPECIFIED SITE (9) Steroid dependence Code(s): [id number] - (10) Type 2 diabetes mellitus with hyperosmolarity without nonketotic hyperglycemic-hyperosmolar coma ([facility]) Code(s): E11.00 - TYPE 2 DIAB W HYPROSM W/O NONKET HYPRGLY-HYPROS COMA ([facility]) (11) Chronic steroid use Code(s): [id number] - (12) Hyperlipidemia Code(s): E78.5 - HYPERLIPIDEMIA, UNSPECIFIED Qualifiers: Qualified Code(s): E78.5 - Hyperlipidemia, unspecified (13) Hypertension Code(s): I10 - ESSENTIAL (PRIMARY) HYPERTENSION Qualifiers: Qualified Code(s): I10 - Essential (primary) hypertension (14) Hypothyroidism Code(s): E03.9 - HYPOTHYROIDISM, UNSPECIFIED Qualifiers: Qualified Code(s): E03.9 - Hypothyroidism, unspecified (15) Chronic hypoxemic respiratory failure Code(s): J96.11 - CHRONIC RESPIRATORY FAILURE WITH HYPOXIA Assessment/Plan IMP CERVICAL CA WITH LUNG METS CHRONIC HYPOXEMIC RESPIRATORY FAILURE CLINICALLY IMPROVING ASTHMA IMPROVING CHEST PAIN SYNDROME IMPROVED URI HYPOTHYROID H/O PE HLD FEVER PLAN NASAL O2 INHALED BRONCHODILATORS PREDNISONE IN AM DR DAO
--- NOTE | 2016-09-09 21:07 | PN ---
Progress Note, Physician History of Present Illness: Pt feeling better - Current Medication List Current Medications: Active Medications Albuterol/Ipratropium (Duoneb -) 1 amp NEB Q6H PRN PRN Reason: SHORT OF BREATH/WHEEZING Last Admin: 09/08/16 06:22 Dose: 1 amp Alprazolam (Xanax -) 0.25 mg PO Q6H PRN PRN Reason: ANXIETY Last Admin: 09/09/16 18:02 Dose: 0.25 mg Aspirin (Asa -) 81 mg PO DAILY [facility] Last Admin: 09/09/16 09:36 Dose: 81 mg Atorvastatin Calcium (Lipitor -) 40 mg PO DAILY [facility] Last Admin: 09/09/16 17:59 Dose: 40 mg Docusate Sodium (Colace -) 300 mg PO DAILY [facility] Last Admin: 09/09/16 09:35 Dose: 300 mg Enoxaparin Sodium (Lovenox -) 120 mg SQ DAILY@2300 [facility] Last Admin: 09/08/16 23:33 Dose: 120 mg Furosemide (Lasix -) 20 mg PO DAILY [facility] Last Admin: 09/09/16 09:36 Dose: 20 mg Guaifenesin/Codeine Phosphate (Robitussin Ac -) 5 ml PO TID PRN PRN Reason: COUGH Insulin Aspart (Novolog Vial) 15 units SQ TIDAC [facility] Last Admin: 09/09/16 17:59 Dose: 15 units Insulin Detemir (Levemir Vial) 35 units SQ BID@0700,2200 [facility] Last Admin: 09/09/16 06:09 Dose: 35 units Levothyroxine Sodium (Synthroid -) 100 mcg PO DAILY@0700 [facility] Last Admin: 09/09/16 06:10 Dose: 100 mcg Losartan Potassium (Cozaar -) 50 mg PO BID [facility] Last Admin: 09/09/16 09:36 Dose: 50 mg Methylprednisolone Sodium Succinate (Solu-Medrol -) 40 mg IVPB BID [facility] Stop: 09/09/16 23:59 Last Admin: 09/09/16 09:37 Dose: 40 mg Montelukast Sodium (Singulair -) 10 mg PO HS [facility] Last Admin: 09/08/16 21:28 Dose: 10 mg Nystatin (Nystop Powder -) 1 applic TP BID [facility] Last Admin: 09/09/16 09:37 Dose: 1 applic Oxycodone HCl (Roxicodone -) 15 mg PO Q8H PRN PRN Reason: PAIN Last Admin: 09/09/16 13:58 Dose: 15 mg Polyethylene Glycol (Miralax (For Daily Use) -) 17 gm PO DAILY [facility] Last Admin: 09/09/16 09:38 Dose: 17 gm Prednisone (Deltasone -) 40 mg PO DAILY [facility] Tamoxifen Citrate (Tamoxifen Citrate) 20 mg PO BID [facility] Last Admin: 09/09/16 09:37 Dose: 20 mg Tobramycin Sulfate (Tobrex Ophthalmic Solution -) 1 drop OU Q6HPO [facility] Last Admin: 09/09/16 18:03 Dose: 1 drop - Objective Vital Signs: Vital Signs Temperature 98.5 F 09/09/16 14:21 Pulse Rate 84 09/09/16 14:21 Respiratory Rate 22 09/09/16 14:21 Blood Pressure 111/52 09/09/16 14:21 O2 Sat by Pulse Oximetry (%) 100 09/09/16 09:00 Constitutional: Yes: Well Nourished Eyes: Yes: WNL HENT: Yes: WNL Neck: Yes: WNL Cardiovascular: Yes: WNL, Regular Rate and Rhythm Respiratory: Yes: WNL, Regular, CTA Bilaterally Gastrointestinal: Yes: WNL, Normal Bowel Sounds, Soft, Abdomen, Obese Labs: CBC, BMP 09/06/16 06:30 09/08/16 16:55 INR, PTT INR 1.08 (0.82-1.09) 09/06/16 06:30 Problem List - Problems (1) Acute asthma exacerbation Code(s): J45.901 - UNSPECIFIED ASTHMA WITH (ACUTE) EXACERBATION (2) Chest pain Code(s): R07.9 - CHEST PAIN, UNSPECIFIED Qualifiers: Qualified Code(s): R07.9 - Chest pain, unspecified (3) Obesity Code(s): E66.9 - OBESITY, UNSPECIFIED (4) Anxiety Code(s): F41.9 - ANXIETY DISORDER, UNSPECIFIED (5) Diabetes Code(s): E11.9 - TYPE 2 DIABETES MELLITUS WITHOUT COMPLICATIONS (6) History of DVT of lower extremity Code(s): Z86.718 - PERSONAL HISTORY OF OTHER VENOUS THROMBOSIS AND EMBOLISM (7) Hyperlipidemia Code(s): E78.5 - HYPERLIPIDEMIA, UNSPECIFIED Qualifiers: Qualified Code(s): E78.5 - Hyperlipidemia, unspecified (8) Hypertension Code(s): I10 - ESSENTIAL (PRIMARY) HYPERTENSION Qualifiers: Qualified Code(s): I10 - Essential (primary) hypertension (9) Hypothyroidism Code(s): E03.9 - HYPOTHYROIDISM, UNSPECIFIED Qualifiers: Qualified Code(s): E03.9 - Hypothyroidism, unspecified Assessment/Plan 1. Exacerbation COPD Cont IV steroids Possible dc planning for am Cont nebulizers 2. Metastatic breast cancer 3. HTN 4. Diabetes
[2016-09-09] MEDS: ENOXAPARIN NA (PORCINE) 120 MG/0.8 ML DISP.SYRIN SQ SCH (22:12)
[2016-09-09] MEDS: MONTELUKAST NA 10 MG TABLET PO SCH (22:13)
[2016-09-10] MEDS: oxyCODONE HCL 5 MG TABLET PO PRN ×2 (06:00→14:35)
[2016-09-10] MEDS: LEVOTHYROXINE NA 100 MCG TABLET (FP) PO SCH (06:18)
[2016-09-10] MEDS: INSULIN (NOVOLOG) ASPART 100 UNITS/ML 10ML VIAL SQ SCH ×3 (06:18→16:23)
[2016-09-10] MEDS: TOBRAMYCIN 0.3% OPHTH SOLN 5 ML BOTTLE OU SCH ×2 (06:18→11:24)
[2016-09-10] MEDS: ALPRAZolam 0.25 MG TABLET PO PRN ×2 (06:18→13:05)
[2016-09-10] MEDS: INSULIN DETEMIR 100 UNITS/ML MDV SQ SCH (06:19)
--- NOTE | 2016-09-10 09:02 | PN ---
Progress Note, Physician - Current Medication List Current Medications: Active Medications Albuterol/Ipratropium (Duoneb -) 1 amp NEB Q6H PRN PRN Reason: SHORT OF BREATH/WHEEZING Last Admin: 09/08/16 06:22 Dose: 1 amp Alprazolam (Xanax -) 0.25 mg PO Q6H PRN PRN Reason: ANXIETY Last Admin: 09/10/16 06:18 Dose: 0.25 mg Aspirin (Asa -) 81 mg PO DAILY [facility] Last Admin: 09/09/16 09:36 Dose: 81 mg Atorvastatin Calcium (Lipitor -) 40 mg PO DAILY [facility] Last Admin: 09/09/16 17:59 Dose: 40 mg Docusate Sodium (Colace -) 300 mg PO DAILY [facility] Last Admin: 09/09/16 09:35 Dose: 300 mg Enoxaparin Sodium (Lovenox -) 120 mg SQ DAILY@2300 [facility] Last Admin: 09/09/16 22:12 Dose: 120 mg Furosemide (Lasix -) 20 mg PO DAILY [facility] Last Admin: 09/09/16 09:36 Dose: 20 mg Guaifenesin/Codeine Phosphate (Robitussin Ac -) 5 ml PO TID PRN PRN Reason: COUGH Last Admin: 09/09/16 22:10 Dose: 5 ml Insulin Aspart (Novolog Vial) 15 units SQ TIDAC [facility] Last Admin: 09/10/16 06:18 Dose: 15 units Insulin Detemir (Levemir Vial) 35 units SQ BID@0700,2200 [facility] Last Admin: 09/10/16 06:19 Dose: 35 units Levothyroxine Sodium (Synthroid -) 100 mcg PO DAILY@0700 [facility] Last Admin: 09/10/16 06:18 Dose: 100 mcg Losartan Potassium (Cozaar -) 50 mg PO BID [facility] Last Admin: 09/09/16 22:12 Dose: 50 mg Montelukast Sodium (Singulair -) 10 mg PO HS [facility] Last Admin: 09/09/16 22:13 Dose: 10 mg Nystatin (Nystop Powder -) 1 applic TP BID [facility] Last Admin: 09/09/16 22:13 Dose: 1 applic Oxycodone HCl (Roxicodone -) 15 mg PO Q8H PRN PRN Reason: PAIN Last Admin: 09/10/16 06:00 Dose: 15 mg Polyethylene Glycol (Miralax (For Daily Use) -) 17 gm PO DAILY [facility] Last Admin: 09/09/16 09:38 Dose: 17 gm Prednisone (Deltasone -) 40 mg PO DAILY [facility] Tamoxifen Citrate (Tamoxifen Citrate) 20 mg PO BID [facility] Last Admin: 09/09/16 22:12 Dose: 20 mg Tobramycin Sulfate (Tobrex Ophthalmic Solution -) 1 drop OU Q6HPO [facility] Last Admin: 09/10/16 06:18 Dose: 1 drop - Objective Vital Signs: Vital Signs Temperature 98.1 F 09/10/16 06:00 Pulse Rate 77 09/10/16 06:00 Respiratory Rate 20 09/10/16 06:00 Blood Pressure 123/91 09/10/16 06:00 O2 Sat by Pulse Oximetry (%) 100 09/09/16 22:00 Eyes: Yes: WNL, Conjunctiva Clear, EOM Intact HENT: Yes: WNL, Atraumatic, Normocephalic Neck: Yes: WNL, Supple, Trachea Midline Cardiovascular: Yes: WNL, Regular Rate and Rhythm Respiratory: Yes: Wheezes Gastrointestinal: Yes: WNL, Normal Bowel Sounds Genitourinary: Yes: WNL Musculoskeletal: Yes: WNL Extremities: Yes: WNL Edema: No Integumentary: Yes: WNL Neurological: Yes: WNL, Alert, Oriented ...Motor Strength: WNL Psychiatric: Yes: WNL Labs: CBC, BMP 09/06/16 06:30 09/08/16 16:55 INR, PTT INR 1.08 (0.82-1.09) 09/06/16 06:30 Assessment/Plan Problems (1) Cervical cancer Code(s): C53.9 - MALIGNANT NEOPLASM OF CERVIX UTERI, UNSPECIFIED (2) Pulmonary emboli Assessment/Plan: Hx PE. On Lovenox 120 mg daily. Code(s): I26.99 - OTHER PULMONARY EMBOLISM WITHOUT ACUTE COR PULMONALE (3) Primary cervical cancer with metastasis to other site Assessment/Plan: f/u ECHO this admission: normal LVEF; abnormal diastolic compliance; mild LAE; mild MR, TR, OR. Code(s): C53.9 - MALIGNANT NEOPLASM OF CERVIX UTERI, UNSPECIFIED C79.9 - SECONDARY MALIGNANT NEOPLASM OF UNSPECIFIED SITE (4) Hypertension Assessment/Plan: On ARB; increase dose if BP remains elevated (better-controlled today). On furosemide (avoid dehydration). Code(s): I10 - ESSENTIAL (PRIMARY) HYPERTENSION Qualifiers: Qualified Code(s): I10 - Essential (primary) hypertension (5) Hypothyroidism Assessment/Plan: on synthroid; TSH WNL. Code(s): E03.9 - HYPOTHYROIDISM, UNSPECIFIED Qualifiers: Qualified Code(s): E03.9 - Hypothyroidism, unspecified (6) Diabetes Code(s): E11.9 - TYPE 2 DIABETES MELLITUS WITHOUT COMPLICATIONS (7) Atypical chest pain Assessment/Plan: LDL cholesterol >180 mg/dL; started atorvastatin 40 mg daily. Code(s): R07.89 - OTHER CHEST PAIN (8) Obesity Code(s): E66.9 - OBESITY, UNSPECIFIED
[2016-09-10] MEDS ORDERED: predniSONE 20 MG TABLET (UD) PO SCH (10:00)
[2016-09-10] MEDS: ATORVASTATIN CA 40 MG TABLET (FP) PO SCH (10:28)
[2016-09-10] MEDS: DOCUSATE SODIUM 100 MG CAPSULE (FP) PO SCH (11:08)
[2016-09-10] MEDS: FUROSEMIDE 20 MG TABLET (FP) PO SCH (11:08)
[2016-09-10] MEDS: LOSARTAN POTASSIUM 50 MG TABLET (FP) PO SCH (11:08)
[2016-09-10] MEDS: ASPIRIN 81 MG CHEWABLE TABLETS PO SCH (11:10)
[2016-09-10] MEDS: ALBUTEROL SO4 2.5/IPRATROPIUM 0.5 INH SOL 3 ML VIAL.NEB. NEB PRN (11:10)
[2016-09-10] MEDS: POLYETHYLENE GLYCOL 3350 119 GM BTL PO SCH (11:12)
[2016-09-10] MEDS: guaiFENesin/CODEINE 5 ML UNIT-DOSE CUPS PO PRN (11:21)
[2016-09-10] MEDS: TAMOXIFEN CITRATE 10 MG TABLET PO SCH (11:25)
--- NOTE | 2016-09-10 12:08 | PN ---
Progress Note (short form) - Note Progress Note: PULMONARY DRY COUGH CONTINUES BUT LESS SUBJECTIVE IMPROVEMENT VSS/AFEBRILE PALE DISTANT BUT CLEAR S1S2 RSR BS+ SOFT OBESE DECREASED EDEMA LOWER EXT LABS/MEDS/NOTES/IMAGING REVIEWED Acute Asthma Exacerbation Chronic Hypoxic Respiratory Failure Cervical Cancer with Lung Metastases Hypothyroid h/o PE - taper prednisone as outpatient - inhaled bronchodilators - O2 to keep SpO2 >90% - singulair - off antibiotics - DVT prophylaxis - No objection to continue treatment as an outpatient Nael JIMENEZ MD
[2016-09-10] MEDS: NYSTATIN POWDER 100,000 UNITS/GM - 15 GM TOPICAL POWDER TP SCH (13:05)
[2016-09-10 13:27] VITALS: PULSE 83
[2016-09-10 21:16] VITALS: BP 123/59; TEMP 98.6
== END 2016-09-10 17:08 | disposition home or self-care (01) | DRG 191 ==
LOC: JER 10:25 → UNDOADMOB 14:51 → JERBED 14:51 → J4W 15:45 → OBSVTOIN 20:25 → J5S 09-03 21:42
PROVIDERS: ADMIT Internal Medicine; ATTEND Internal Medicine
DX: J44.1 Chronic obstructive pulmonary disease with (acute) exacerbation (principal); J45.901 Unspecified asthma with (acute) exacerbation; J96.11 Chronic respiratory failure with hypoxia; C78.00 Secondary malignant neoplasm of unspecified lung; C50.919 Malignant neoplasm of unspecified site of unspecified female breast; I10 Essential (primary) hypertension; E11.9 Type 2 diabetes mellitus without complications; E03.9 Hypothyroidism, unspecified; C53.9 Malignant neoplasm of cervix uteri, unspecified; E66.9 Obesity, unspecified; Z68.37 Body mass index [BMI] 37.0-37.9, adult; F41.9 Anxiety disorder, unspecified; E78.5 Hyperlipidemia, unspecified; J06.9 Acute upper respiratory infection, unspecified; R07.89 Other chest pain
CPT/HCPCS: 36415; 71010-TC; 71260-TC; 80053; 80061; 82550; 82947; 83721; 83735; 84443; 84484; 85025; 85610; 85730; 93005; 93010; 93306-TC; 93970-TC; 94640; 99282-25; J8999

== ENCOUNTER 2016-09-24 12:26 | Emergency (ER) | payer OTHER ==
[2016-09-24 12:30] VITALS: TEMP 98.4; BMI 37.0
--- NOTE | 2016-09-24 13:52 | PDOC ---
History of Present Illness <Lazara Cid - Last Filed: 09/24/16 15:25> - General History Source: Patient, Old Records Exam Limitations: No Limitations - History of Present Illness Initial Comments: 09/24/16 14:00 The patient is a 66-year-old woman, with a significant past medical history of anemia, cervical and lung ca status post on chemotherapy and radiation, hypertension, hypercholesterolemia, coronary artery disease, diabetes mellitus, diabetic neuropathy, thyroid disease, asthma, chronic obstructive pulmonary disease, who presents to the emergency department via walk in with complaints of a 3 day history of left foot pain. She states that 3 days ago, she accidentally dropped a bottle on her left foot and has noted some bruising. She expresses concern as with her history of diabetic neuropathy, as she now experiences pain. She is able to bear weight on her leg. No weakness or numbness to her extremities. She also reports experiencing some chest congestion with an associated dry cough and nausea. She denies chest pain, lightheadedness, dizziness, shortness of breath, fever, chills, abdominal pain, vomiting. She also reports that she is currently anxious and requests some Xanax. Allergies: Penicillin Past Surgical History: Amputation of the right 3rd and 4th digit. Left lower extremity bypass. Umbilical hernia repair. Cholecystectomy. Social History: No tobacco, EtOH and recreational drug use. Vascular Surgeon: Dr. Taras Jung <Tiffanie Ruiz - Last Filed: 09/24/16 15:35> <Kalyani Xiao - Last Filed: 09/24/16 21:21> - General Chief Complaint: Nausea Stated Complaint: RT FOOT INJURY, NAUSEA Time Seen by Provider: 09/24/16 13:28 Past History - Past Medical History Anemia: Yes Asthma: Yes Cancer: Yes (cervical, lung ca, S/P CHEMO, RADIATION) Cardiac Disorders: Yes (CAD.) CVA: No COPD: Yes CHF: No Dementia: No Diabetes: Yes GI Disorders: No Disorders: No HTN: Yes Hypercholesterolemia: Yes Liver Disease: No Suicide Attempt (Hx): No Seizures: No Thyroid Disease: Yes - Surgical History Abdominal Surgery: Yes (UMBILICAL hernia repair) Appendectomy: No Cardiac Surgery: Yes (LLE Bypass) Cholecystectomy: Yes Lung Surgery: No Neurologic Surgery: No Orthopedic Surgery: Yes (amputation rt 3rd and 4th toes) - Family Disease History Family Disease History: Diabetes: Mother, Heart Disease: Father - Immunization History Td Vaccination: Yes TDAP Vaccination: Yes Immunization Up to Date: Yes - Psycho/Social/Smoking Cessation Hx Anxiety: No Suicidal Ideation: No Smoking Status: No Smoking History: Never smoked Years of Tobacco Use: 0 Have you smoked in the past 12 months: No Number of Cigarettes Smoked Daily: 0 Cigars Per Day: 0 Information on smoking cessation initiated: No Hx Alcohol Use: No Drug/Substance Use Hx: No Substance Use Type: None Hx Substance Use Treatment: No <Lazara Cid - Last Filed: 09/24/16 15:25> <Tiffanie Ruiz - Last Filed: 09/24/16 15:35> <Kalyani Xiao - Last Filed: 09/24/16 21:21> - Past Medical History Allergies/Adverse Reactions: Allergies Allergy/AdvReac Type Severity Reaction Status Date / Time Penicillins Allergy Unknown Hives Verified 09/24/16 12:27 Home Medications: Ambulatory Orders Albuterol Sulfate Inhaler - [Ventolin HFA Inhaler -] 2 inh PO Q6H 08/30/16 Alprazolam [Xanax] 0.25 mg PO Q6H 08/30/16 Aspirin [ASA -] 81 mg PO DAILY 08/30/16 Cholecalciferol (Vitamin D3) [Vitamin D -] 1,000 unit PO Q7D 08/30/16 Furosemide [Lasix] 20 mg PO DAILY 08/30/16 Insulin Lispro [Humalog] 15 unit SQ TID 08/30/16 Levothyroxine [Synthroid -] 100 mcg PO DAILY 08/30/16 Losartan Potassium 50 mg PO BID 08/30/16 Megestrol Acetate 80 mg PO BID 08/30/16 Montelukast Na [Singulair -] 10 mg PO HS 08/30/16 Ondansetron [Zofran -] 4 mg PO BID PRN 08/30/16 Oxycodone HCl 15 mg PO TID PRN 08/30/16 Tamoxifen Citrate 20 mg PO BID 08/30/16 Insulin (Levemir) [Levemir Vial] 35 units SQ BID@0700,2200 ml 09/10/16 Prednisone [Deltasone -] 40 mg PO DAILY #10 tablet 09/10/16 Cephalexin Monohydrate [Keflex -] 500 mg PO Q6H #20 capsule 09/24/16 Mag Hydrox/Al Hydrox/Simeth [Mylanta Oral Suspension -] 30 ml PO DAILY #10 cup 09/24/16 Review of Systems - Review of Systems Able to Perform ROS?: Yes Comments:: 09/24/16 14:00 GENERAL/CONSTITUTIONAL: No fever or chills. No weakness. HEAD, EYES, EARS, NOSE AND THROAT: No change in vision. No ear pain or discharge. No sore throat. CARDIOVASCULAR: No chest pain or shortness of breath. RESPIRATORY: Yes: Cough. Chest congestion. No wheezing, or hemoptysis. GASTROINTESTINAL: Yes: Nausea. No vomiting, diarrhea or constipation. GENITOURINARY: No dysuria, frequency, or change in urination. MUSCULOSKELETAL: Yes: Left Foot Pain. No joint or muscle swelling or pain. No neck or back pain. SKIN: No rash NEUROLOGIC: No headache, vertigo, loss of consciousness, or change in strength/ sensation. ENDOCRINE: No increased thirst. No abnormal weight change. HEMATOLOGIC/LYMPHATIC: Yes: See HPI. ALLERGIC/IMMUNOLOGIC: No hives or skin allergy. <Tiffanie Ruiz - Last Filed: 09/24/16 15:35> *Physical Exam - Vital Signs Last Vital Signs Temp Pulse Resp BP Pulse Ox 98.4 F 99 H 20 174/82 98 09/24/16 12:28 09/24/16 12:28 09/24/16 12:28 09/24/16 12:28 09/24/16 12:28 - Physical Exam Comments: GENERAL: Awake, alert, and fully oriented, in no acute distress HEAD: No signs of trauma EYES: PERRLA, EOMI, sclera anicteric, conjunctiva clear ENT: Auricles normal inspection, hearing grossly normal, nares patent, oropharynx clear without exudates. Moist mucosa NECK: Normal ROM, supple, no lymphadenopathy, JVD, or masses LUNGS: Breath sounds equal, clear to auscultation bilaterally. No wheezes, and no crackles HEART: Regular rate and rhythm, normal S1 and S2, no murmurs, rubs or gallops ABDOMEN: Soft, +LLQ tenderness, normoactive bowel sounds. No guarding, no rebound. No masses EXTREMITIES: +Ecchymosis to L mid-foot. R foot with 3rd-5th toe amputations, well-healed. Remainder of extremities with normal range of motion, no edema. No clubbing or cyanosis. No cords, or tenderness. +Small areas of erythema to B/ L anterior shins (chronic and unchanged per patient). NEUROLOGICAL: Cranial nerves II through XII grossly intact. Normal speech, normal gait SKIN: Warm, Dry, normal turgor, no rashes or lesions noted. <Lazara Cid - Last Filed: 09/24/16 15:25> - Vital Signs Last Vital Signs Temp Pulse Resp BP Pulse Ox 98.4 F 99 H 20 174/82 98 09/24/16 12:28 09/24/16 12:28 09/24/16 12:28 09/24/16 12:28 09/24/16 12:28 <Tiffanie Ruiz - Last Filed: 09/24/16 15:35> - Vital Signs Last Vital Signs Temp Pulse Resp BP Pulse Ox 98.4 F 89 18 156/68 99 09/24/16 12:28 09/24/16 18:11 09/24/16 18:11 09/24/16 18:11 09/24/16 18:11 <Kalyani Xiao - Last Filed: 09/24/16 21:21> ED Treatment Course - LABORATORY CBC & Chemistry Diagram: 09/24/16 14:02 09/24/16 14:02 <Lazara Cid - Last Filed: 09/24/16 15:25> - LABORATORY CBC & Chemistry Diagram: 09/24/16 14:02 09/24/16 14:02 <Tiffanie Ruiz - Last Filed: 09/24/16 15:35> - LABORATORY CBC & Chemistry Diagram: 09/24/16 14:02 09/24/16 14:02 - ADDITIONAL ORDERS Additional order review: Laboratory Results 09/24/16 09/24/16 14:02 13:53 Sodium 137 Potassium 4.7 Chloride 99 Carbon Dioxide 30 Anion Gap 8 BUN 14 D Creatinine 0.9 Creat Clearance w eGFR > 60 Random Glucose 248 H D Calcium 9.3 Total Bilirubin 0.2 D AST 18 D ALT 27 Alkaline Phosphatase 96 Total Protein 6.5 Albumin 3.1 L Lipase 80 Urine Color Straw Urine Appearance Clear Urine pH 6.0 Ur Specific [place] 1.015 Urine Protein Negative Urine Glucose (UA) 3+ H Urine Ketones Negative Urine Blood Negative Urine Nitrite Negative Urine Bilirubin Negative Urine Urobilinogen Negative Ur Leukocyte Esterase Trace H Urine RBC 1 Urine WBC 4 Hyaline Casts 1 09/24/16 14:02 RBC 4.57 MCV 79.6 L MCHC 32.7 RDW 16.5 H MPV 8.5 Neutrophils % 80.2 Lymphocytes % 13.5 D Monocytes % 5.7 D Eosinophils % 0.3 D Basophils % 0.3 - Medications Given in the ED: ED Medications Discontinued Medications Generic Name Dose Route Start Last Admin Trade Name Freq PRN Reason Stop Dose Admin Alprazolam 0.5 mg 09/24/16 14:01 09/24/16 14:40 Xanax - PO 09/24/16 14:02 0.5 mg ONCE ONE Administration Sodium Chloride 1,000 mls @ 1,000 mls/hr 09/24/16 13:53 09/24/16 14:26 Normal Saline - IV 09/24/16 14:52 1,000 mls/hr ASDIR STA Administration Clindamycin Phosphate 50 mls @ 100 mls/hr 09/24/16 19:08 09/24/16 20:05 Cleocin 600 Mg Premix Ivpb - IVPB 09/24/16 19:37 100 mls/hr ONCE ONE Administration Ondansetron HCl 4 mg 09/24/16 13:53 09/24/16 14:40 Zofran Injection IVPUSH 09/24/16 13:54 4 mg ONCE ONE Administration Oxycodone HCl 15 mg 09/24/16 14:00 09/24/16 14:46 Roxicodone - PO 09/24/16 14:01 15 mg ONCE ONE Administration <Kalyani Xiao - Last Filed: 09/24/16 21:21> *DC/Admit/Observation/Transfer <Lazara Cid - Last Filed: 09/24/16 15:25> - Attestations Scribe Attestion: 09/24/16 14:01 Documentation prepared by Tiffanie Ruiz, acting as medical planner for Lazara Cid MD. <Tiffanie Ruiz - Last Filed: 09/24/16 15:35> <Kalyani Xiao - Last Filed: 09/24/16 21:21> Diagnosis at time of Disposition: Injury of left foot including toes Qualifiers: Encounter type: initial encounter Qualified Code(s): S99.922A - Unspecified injury of left foot, initial encounter Traumatic ecchymosis of foot Qualifiers: Encounter type: initial encounter Laterality: left Qualified Code(s): S90.32XA - Contusion of left foot, initial encounter - Discharge Dispostion Disposition: HOME Condition at time of disposition: Stable - Prescriptions Prescriptions: Cephalexin Monohydrate [Keflex -] 500 mg PO Q6H #20 capsule Mag Hydrox/Al Hydrox/Simeth [Mylanta Oral Suspension -] 30 ml PO DAILY #10 cup - Referrals Referrals: STAFF,NOT ON [Primary Care Provider] - - Patient Instructions Printed Discharge Instructions: DI for Foot Pain Additional Instructions: please take your antibiotics and see your wound management doctor
[2016-09-24] MEDS ORDERED: ONDANSETRON 4 MG/2 ML VIAL IVPUSH ONE (13:53)
[2016-09-24] MEDS ORDERED: SODIUM CHLORIDE 1,000 ML IV STA (13:53)
[2016-09-24] MEDS ORDERED: oxyCODONE HCL 5 MG TABLET PO ONE (14:00)
[2016-09-24] MEDS ORDERED: ALPRAZolam 0.25 MG TABLET PO ONE (14:01)
[2016-09-24 14:36] LABS: BASOPHIL 0.3 % (0-2.0); EOSINOPHIL 0.3 % (0-4.5); MCHC 32.7 g/dl (32.0-36.0); MEAN CELL VOLUME 79.6 fl (80-96); MEAN PLT VOLUME 8.5 fl (7.5-11.1); NEUTROPHILS 80.2 % (42.8-82.8); PLATELET COUNT 180 K/MM3 (134-434); RDW 16.5 % (11.6-15.6); WHITE BLOOD COUNT 10.1 K/mm3 (4.0-10.0)
[2016-09-24] MEDS ORDERED: ALPRAZolam 0.25 MG TABLET ONE (14:36)
[2016-09-24] MEDS ORDERED: ONDANSETRON 4 MG/2 ML VIAL ONE (14:36)
[2016-09-24] MEDS ORDERED: oxyCODONE HCL 5 MG TABLET ONE ×2 (14:36→14:44)
[2016-09-24 14:48] LABS: ALBUMIN 3.1 g/dl (3.4-5.0); ANION GAP 8 (8-16); CALCIUM 9.3 mg/dL (8.5-10.1); CO2 30 mmol/L (21-32); CREATININE 0.9 mg/dL (0.55-1.02); GLUCOSE,RANDOM 248 mg/dL (74-106); SGPT/ALT 27 U/L (12-78); TOT PROT 6.5 g/dl (6.4-8.2)
[2016-09-24 14:52] LABS: ALK PHOS 96 U/L (45-117); BILIRUBIN,TOTAL 0.2 mg/dL (0.2-1.0)
[2016-09-24 14:54] LABS: SGOT/AST 18 U/L (15-37)
[2016-09-24 15:21] LABS: URINE APPEARANCE CLEAR; URINE BILIRUBIN NEGATIVE (NEGATIVE); URINE BLOOD NEGATIVE (NEGATIVE); URINE COLOR STRAW; URINE GLUCOSE (UA) 3+ (NEGATIVE); URINE KETONE NEGATIVE (NEGATIVE); URINE NITRITE NEGATIVE (NEGATIVE); URINE PROTEIN NEGATIVE (NEGATIVE); URINE UROBILINOGEN NEGATIVE E.U./dl (0.2-1.0)
[2016-09-24 15:23] LABS: URINE LEUK ESTERASE TRACE (NEGATIVE)
[2016-09-24 15:24] LABS: URINE HYALINE CAST 1 /lpf; URINE RBC 1 /hpf (0-3); URINE WBC 4 /hpf (3-5)
[2016-09-24 18:12] VITALS: BP 156/68; PULSE 89
[2016-09-24] MEDS ORDERED: CLINDAMYCIN 600MG PREMIX IVPB 50 ML IVPB ONE ×2 (19:08→19:55)
[2016-09-24] MEDS ORDERED: OXYCODONE/APAP 5/325MG COMBO TABLET PO ONE (21:13)
[2016-09-24] MEDS ORDERED: OXYCODONE/APAP 5/325MG COMBO TABLET ONE (21:46)
== END 2016-09-24 22:18 | disposition home or self-care (01) ==
LOC: JER 12:26
PROC: 3E03329 Introduction of Other Anti-infective into Peripheral Vein, Percutaneous Approach (ICD-10-PCS; principal; 2016-09-24)
PROC: 3E033GC Introduction of Other Therapeutic Substance into Peripheral Vein, Percutaneous Approach (ICD-10-PCS; 2016-09-24)
PROC: 3E0337Z Introduction of Electrolytic and Water Balance Substance into Peripheral Vein, Percutaneous Approach (ICD-10-PCS; 2016-09-24)
DX: S99.922A Unspecified injury of left foot, initial encounter (principal); S90.32XA Contusion of left foot, initial encounter; J44.9 Chronic obstructive pulmonary disease, unspecified; E78.00 Pure hypercholesterolemia, unspecified; J45.909 Unspecified asthma, uncomplicated; E11.9 Type 2 diabetes mellitus without complications
CPT/HCPCS: 36415; 73630-TC-LT; 80053; 81003; 81015; 83690; 85025; 96361; 96365; 96375; 99285-25

== ENCOUNTER 2016-10-29 06:45 | Day surgery (SDC) | payer OTHER ==
[2016-10-26 09:53] VITALS: BMI 37.0
[2016-10-29] MEDS ORDERED: TROPICAMIDE 1% OPHTH SOLN 15 ML BOTTLE ONE (07:21)
[2016-10-29] MEDS ORDERED: MOXIFLOXACIN HCL 0.5% OPHTHALMIC 3 ML BOTTLE ONE (07:21)
[2016-10-29] MEDS ORDERED: FLURBIPROFEN 0.03% OPHTH SOLN 2.5 ML BOTTLE ONE (07:21)
[2016-10-29] MEDS ORDERED: CYCLOPENTOLATE HCL 1% OPHTH SOLN 2 ML BOTTLE ONE (07:21)
[2016-10-29] MEDS ORDERED: PHENYLEPHRINE 2.5% OPHTH SOLN 15 ML BOTTLE ONE (07:22)
[2016-10-29] MEDS ORDERED: LIDOCAINE HCL/PF 1% SDV 5ML VIAL ONE (07:35)
[2016-10-29] MEDS ORDERED: TRYPAN BLUE 0.5 ML DISP.SYRIN ONE (07:35)
[2016-10-29] MEDS ORDERED: EPINEPHrine/PF 1 MG/1 ML (1:1,000) AMPULE ONE (07:35)
[2016-10-29] MEDS ORDERED: TOBRA 0.3%/DEXAMETH 0.1% OPHTHALMIC SUSP 2.5 ML BTL ONE (07:35)
[2016-10-29] MEDS ORDERED: BSS (NA/CA/MG/K) BALANCED SALT SOLUTION OPHTH SOLN 15 ML BOTTLE ONE (07:36)
[2016-10-29] MEDS ORDERED: TETRACAINE 0.5% OPHTH SOLN 2 ML BOTTLE ONE (07:36)
[2016-10-29 07:44] VITALS: BP 122/56; PULSE 105; TEMP 98.5
[2016-10-29] MEDS ORDERED: PHENYLEPHRINE/KETOROLAC 4 ML VIAL IO ONE (09:00)
== END 2016-10-29 08:30 | disposition home or self-care (01) ==
LOC: JASU-SURG 06:45
PROVIDERS: ATTEND Ophthalmology
PROC: 08DK3ZZ Extraction of Left Lens, Percutaneous Approach (ICD-10-PCS; principal; 2016-10-29)
DX: Z53.8 Procedure and treatment not carried out for other reasons (principal)

== ENCOUNTER 2016-10-29 08:59 | Inpatient (IN) | payer OTHER ==
--- NOTE | 2016-10-29 09:10 | PDOC ---
History of Present Illness - General Chief Complaint: Lethargy Stated Complaint: Shortness of Breath Time Seen by Provider: 10/29/16 09:04 - History of Present Illness Initial Comments: 10/29/16 09:05 Ms. Mendieta is a 66 year old female with a significant past medical history of Cervical cancer w/ lung mets, cholecystectomy, and DVT (off lovenox and ASA for 1 week) who presents to the emergency department with 4 day history of sleepyness and drifting off during conversation. She was scheduled for cataract surgery this AM but presented to the ER per physician direction after showing up for her appt this AM. Ms. Mendieta denies chest pain, headache and dizziness. Denies fever, chills, vomit, diarrhea and constipation. Denies dysuria, frequency, urgency and hematuria. Allergies: Penicillins Past surgical history: Cholecystectomy, Hernia repair, hysterectomy, DVT bypass Social history: Denies alcohol denies tobacco use PMD - Zahida Perkins 10/29/16 09:45 10/29/16 10:58 10/29/16 13:12 Past History - Past Medical History Allergies/Adverse Reactions: Allergies Allergy/AdvReac Type Severity Reaction Status Date / Time Penicillins Allergy Unknown Hives Verified 10/29/16 09:17 Home Medications: Ambulatory Orders Albuterol Sulfate Inhaler - [Ventolin HFA Inhaler -] 2 inh PO Q6H 08/30/16 Alprazolam [Xanax] 0.25 mg PO Q6H 08/30/16 Aspirin [ASA -] 81 mg PO DAILY 08/30/16 Cholecalciferol (Vitamin D3) [Vitamin D -] 1,000 unit PO Q7D 08/30/16 Furosemide [Lasix] 20 mg PO DAILY 08/30/16 Levothyroxine [Synthroid -] 100 mcg PO DAILY 08/30/16 Megestrol Acetate 80 mg PO BID 08/30/16 Montelukast Na [Singulair -] 10 mg PO HS 08/30/16 Ondansetron [Zofran -] 4 mg PO BID PRN 08/30/16 Oxycodone HCl 15 mg PO TID PRN 08/30/16 Atorvastatin Ca [Lipitor] 10 mg PO HS 10/29/16 Budesonide/Formeterol Fumarate [SYMBICORT 160/4.5mcg -] 1 inh PO BID 10/29/16 Insulin Aspart [Novolog] 10 unit SQ TID 10/29/16 Insulin Glargine,Hum.rec.anlog [Lantus (nf)] 40 units SQ BID 10/29/16 Lisinopril 10 mg PO DAILY 10/29/16 Prednisone [Deltasone -] 20 mg PO BID 10/29/16 Prochlorperazine Maleate 5 mg PO PRN 10/29/16 Ranitidine [Zantac -] 300 mg PO ONCE 10/29/16 Sertraline HCl 25 mg PO DAILY 10/29/16 Anemia: Yes Asthma: Yes Cancer: Yes (cervical, lung ca, S/P CHEMO, RADIATION) Cardiac Disorders: Yes (CAD.) CVA: No COPD: Yes CHF: No Dementia: No Diabetes: Yes GI Disorders: No Disorders: No HTN: Yes Hypercholesterolemia: Yes Liver Disease: No Suicide Attempt (Hx): No Seizures: No Thyroid Disease: Yes - Surgical History Abdominal Surgery: Yes (UMBILICAL hernia repair) Appendectomy: No Cardiac Surgery: Yes (LLE Bypass) Cholecystectomy: Yes Lung Surgery: No Neurologic Surgery: No Orthopedic Surgery: Yes (amputation rt 3rd and 4th toes) - Family Disease History Family Disease History: Diabetes: Mother, Heart Disease: Father - Immunization History Td Vaccination: Yes TDAP Vaccination: Yes Immunization Up to Date: Yes - Psycho/Social/Smoking Cessation Hx Anxiety: No Suicidal Ideation: No Smoking Status: No Smoking History: Never smoked Years of Tobacco Use: 0 Have you smoked in the past 12 months: No Number of Cigarettes Smoked Daily: 0 Cigars Per Day: 0 Hx Alcohol Use: No Drug/Substance Use Hx: No Substance Use Type: None Hx Substance Use Treatment: No Review of Systems - Review of Systems Comments:: 10/29/16 09:05 GENERAL/CONSTITUTIONAL: No fever or chills. No weakness. HEAD, EYES, EARS, NOSE AND THROAT: No change in vision. No ear pain or discharge. No sore throat. CARDIOVASCULAR: +Some chest pain at baseline, current shortness of breath RESPIRATORY: N+Endorses cough and wheezing with occasional pink tinged sputum. GASTROINTESTINAL: +Mild nausea, no vomiting, diarrhea or constipation. GENITOURINARY: No dysuria, frequency, or change in urination. MUSCULOSKELETAL: +Leg swelling. No joint or muscle swelling or pain. No neck or back pain. SKIN: No rash NEUROLOGIC: No headache, vertigo, loss of consciousness, or change in strength/ sensation. ENDOCRINE: No increased thirst. No abnormal weight change HEMATOLOGIC/LYMPHATIC: No anemia, easy bleeding, or history of blood clots. ALLERGIC/IMMUNOLOGIC: No hives or skin allergy. 10/29/16 10:58 10/29/16 13:13 *Physical Exam - Physical Exam Comments: 10/29/16 09:05 GENERAL: Awake, alert, and fully oriented, in no acute distress HEAD: No signs of trauma, normocephalic, atraumatic EYES: PERRLA, EOMI, sclera anicteric, conjunctiva clear ENT: Auricles normal inspection, hearing grossly normal, nares patent, oropharynx clear without exudates. Moist mucosa NECK: Normal ROM, supple, no lymphadenopathy, JVD, or masses LUNGS: +Some weezing, no distress, speaks full sentences, clear to auscultation bilaterally HEART: Regular rate and rhythm, normal S1 and S2, no murmurs, rubs or gallops, peripheral pulses normal and equal bilaterally. ABDOMEN: Soft, nontender, normoactive bowel sounds. No guarding, no rebound. No masses EXTREMITIES: + 2+ pedal edema, Normal range of motion, no edema. No clubbing or cyanosis. NEUROLOGICAL: Cranial nerves II through XII grossly intact. Normal speech, normal gait, no focal sensorimotor deficits SKIN: Warm, Dry, normal turgor, no rashes or lesions noted. 10/29/16 11:00 10/29/16 13:13 ED Treatment Course - LABORATORY CBC & Chemistry Diagram: 10/29/16 12:10 10/29/16 10:23 Medical Decision Making - Medical Decision Making 10/29/16 13:13 Patient presented in no acute distress but per family and self has been "very sleepy" lately and will drift off during conversations. Was scheduled for cataract surgery this AM but directed to ER for evaluation. Concern for progression of cancer history (cervical cancer w/ lung mets) so ordered chest XR and head CT. CT read clean, XR showed some progression of mets. Labs showed elevated creatinine at 1.3 - consulted with PCP and found it was 0.9 last week. Patient upon further prompting reported taking her lasix this weekend (after being instructed not to by PCP). Suspect patient is dry. Admitting for observation and gentle rehydration. Also waiting on urine culture with elevated WBC count. *DC/Admit/Observation/Transfer Diagnosis at time of Disposition: Lethargy - Discharge Dispostion Condition at time of disposition: Stable Admit: Yes - Attestations Physician Attestion: 10/29/16 13:20 I, Dr. Daniel Loya, attest that this document has been prepared under my direction and personally reviewed by me in its entirety. I further attest, that it accurately reflects all work, treatment, procedures and medical decision -making performed by me.
[2016-10-29 09:37] VITALS: BMI 37.0
[2016-10-29] MEDS ORDERED: ALBUTEROL SO4 2.5/IPRATROPIUM 0.5 INH SOL 3 ML VIAL.NEB. NEB ONE ×2 (09:39→10:01)
[2016-10-29] MEDS ORDERED: OXYCODONE/APAP 5/325MG COMBO TABLET PO ONE (10:10)
[2016-10-29] MEDS ORDERED: ONDANSETRON 4 MG/2 ML VIAL IVPUSH ONE (10:10)
[2016-10-29] MEDS ORDERED: SODIUM CHLORIDE 1,000 ML IV STA (10:12)
[2016-10-29] MEDS ORDERED: OXYCODONE/APAP 5/325MG COMBO TABLET ONE (10:37)
--- NOTE | 2016-10-29 10:37 | PDOC ---
Attending Attestation - Resident Resident Name: Daniel Loya - ED Attending Attestation I have performed the following: I have examined & evaluated the patient, The case was reviewed & discussed with the resident, I agree w/resident's findings & plan, Exceptions are as noted - HPI HPI: 10/29/16 10:35 Agree with the resident's HPI as documented in the electronic medical record. - Physicial Exam PE: 10/29/16 10:35 Agree with the resident's physical examination as documented in the electronic medical record. - Medical Decision Making 10/29/16 10:35 66-year-old female with history of cervical CA, lung CVA, hypertension, high cholesterol, diabetes, COPD, hypothyroid disease, DVT who presents to the emergency department with family who state that she has been more lethargic over the past several days with increased cough. Differential diagnosis includes but is not limited to: OUTREACH SPECIALIST metastases, intracranial process, infection (UTI versus pneumonia), electrolyte abnormality, dehydration, toxic/metabolic derangement, poorly controlled thyroid disease, uncontrolled diabetes, ACS. Plan: 1. Labs 2. Chest x-ray 3. Head CT 4. EKG 5. Urine analysis 6. Observe and reevaluate
[2016-10-29] MEDS ORDERED: ONDANSETRON 4 MG/2 ML VIAL ONE (10:38)
[2016-10-29 10:56] LABS: URINE APPEARANCE CLEAR; URINE BILIRUBIN NEGATIVE (NEGATIVE); URINE BLOOD NEGATIVE (NEGATIVE); URINE COLOR YELLOW; URINE GLUCOSE (UA) 3+ (NEGATIVE); URINE KETONE NEGATIVE (NEGATIVE); URINE NITRITE NEGATIVE (NEGATIVE); URINE UROBILINOGEN NEGATIVE mg/dL (0.2-1.0)
[2016-10-29] MEDS ORDERED: morphine CARPU-JECT 2 MG/1 ML DISP.SYRIN IVPUSH ONE ×2 (10:57→12:25)
[2016-10-29 11:05] LABS: URINE LEUK ESTERASE 1+ (NEGATIVE); URINE PROTEIN 1+ (NEGATIVE)
[2016-10-29] MEDS ORDERED: morphine CARPU-JECT 2 MG/1 ML DISP.SYRIN ONE ×2 (11:05→13:08)
[2016-10-29 11:07] LABS: URINE BACTERIA RARE /hpf (NONE SEEN); URINE HYALINE CAST 21 /lpf; URINE MUCUS RARE; URINE RBC 1 /hpf (0-3); URINE WBC 18 /hpf (3-5)
[2016-10-29 11:18] LABS: ALBUMIN 2.7 g/dl (3.4-5.0); ANION GAP 9 (8-16); BILIRUBIN,TOTAL 0.5 mg/dL (0.2-1.0); CALCIUM 8.3 mg/dL (8.5-10.1); CO2 30 mmol/L (21-32); CREATININE 1.3 mg/dL (0.55-1.02); GLUCOSE,RANDOM 186 mg/dL (74-106); MAGNESIUM 1.9 mg/dL (1.8-2.4); PHOSPHOROUS 2.9 mg/dL (2.5-4.9); SGOT/AST 34 U/L (15-37); SGPT/ALT 35 U/L (12-78); TOT PROT 6.1 g/dl (6.4-8.2)
[2016-10-29 11:21] LABS: ALK PHOS 97 U/L (45-117); TROPONIN I < 0.02 ng/ml (0.00-0.05)
[2016-10-29 12:23] LABS: BASOPHIL 1.2 % (0-2.0); EOSINOPHIL 0.2 % (0-4.5); MCH 26.4 pg (25.7-33.7); MCHC 33.2 g/dl (32.0-36.0); MEAN CELL VOLUME 79.5 fl (80-96); MEAN PLT VOLUME 8.3 fl (7.5-11.1); NEUTROPHILS 62.4 % (42.8-82.8); PLATELET COUNT 218 K/MM3 (134-434); RDW 18.3 % (11.6-15.6); WHITE BLOOD COUNT 10.3 K/mm3 (4.0-10.0)
--- NOTE | 2016-10-29 12:31 | EKG ---
Test Reason : Blood Pressure : / mmHG Vent. Rate : 097 BPM Atrial Rate : 097 BPM P-R Int : 118 ms QRS Dur : 124 ms QT Int : 392 ms P-R-T Axes : 050 -44 040 degrees QTc Int : 497 ms NORMAL SINUS RHYTHM POSSIBLE LEFT ATRIAL ENLARGEMENT LEFT AXIS DEVIATION RIGHT BUNDLE BRANCH BLOCK ABNORMAL ECG WHEN COMPARED WITH ECG OF 30-AUG-2016 10:33, NO SIGNIFICANT CHANGE WAS FOUND Confirmed by TIFFANY MALCOLM MD ([id number]) on 10/29/2016 12:31:30 PM Referred By: Confirmed By:TIFFANY MALCOLM MD
[2016-10-29] MEDS ORDERED: oxyCODONE HCL 5 MG TABLET PO PRN (14:18)
--- NOTE | 2016-10-29 14:18 | HP ---
CHIEF COMPLAINT: "I feel sick" PCP: Dr Zahida Perkins HISTORY OF PRESENT ILLNESS: This is a 66 yo F with PMH of cervical CA w lung mets, on daily prednisone (dx 2008, sp IV chemo 5 yrs ago, currently on PO chemo), asthma, hypothyroidism, CAD , IDDM, DVT (off lovenox and ASA x 1 p/d cataract sho), who presents per PCP request due to lethargy and malaise x 2 w with worsening over past 4 days. She was scheduled for cataract surgery this AM. She reports increased generalized weakness, dizziness, increased peripheral edema (legs, arms, face), increased diffuse bone pain including shins, blurry vision, nausea, cold intolerance and b /l headache behind ears x 4 d. Most of these symptoms are acute on chronic. She also reports 50 lb weight gain in the past 5 mo. She also has easy bruising. She reports oral thrush x 2 w. She states she is on 20 prednisone bid but her pharmacy confirms 10 daily. She reports chronic cough projuctive of pink sputum that has not changed. She denies increased diuretic use, increased urination, dysuria, unrgency or hematuria. She denies fever, vomiting, increased sob (on 3L at home), chest pain, orthopnea, hempptysis, abd pain, diarrhea, constipation , melena, hematochezia. ER course was notable for: (1)labs (2)ekg: nonstecific t inversions in abnterior/precordial leads, RBB, L asis, no change from prior CXR: slightly increased lung nodules Head CT: no acute pathology (3)1L NS, morphine, zofran Recent Travel: denies PAST MEDICAL HISTORY: Peripheral neuropathy Coronary artery disease Deep vein thrombosis Hypertension Hyperlipdemia Hypothyroid Peripheral artery disease Asthma Gastritis Cervical cancer with metastasis to lungs Anxiety Depression Type 2 diabetes Mellitus Chronic back pain PAST SURGICAL HISTORY: Cholecystectomy, Hernia repair, hysterectomy, DVT, LLE bypass, RLE angioplasty Social History: lives at home Smoking:denies Alcohol:denies Drugs: denies Family History: noncontributory Allergies Penicillins Allergy (Unknown, Verified 10/29/16 09:17) Hives HOME MEDICATIONS: Home Medications Medication Instructions Recorded Albuterol Sulfate Inhaler - 2 inh PO Q6H 08/30/16 [Ventolin HFA Inhaler -] Alprazolam [Xanax] 0.25 mg PO Q6H 08/30/16 Aspirin [ASA -] 81 mg PO DAILY 08/30/16 Cholecalciferol (Vitamin D3) 1,000 unit PO Q7D 08/30/16 [Vitamin D -] Furosemide [Lasix] 20 mg PO DAILY 08/30/16 Levothyroxine [Synthroid -] 100 mcg PO DAILY 08/30/16 Megestrol Acetate 80 mg PO BID 08/30/16 Montelukast Na [Singulair -] 10 mg PO HS 08/30/16 Ondansetron [Zofran -] 4 mg PO BID PRN 08/30/16 Oxycodone HCl 15 mg PO TID PRN 08/30/16 Atorvastatin Ca [Lipitor] 10 mg PO HS 10/29/16 Budesonide/Formeterol Fumarate 1 inh PO BID 10/29/16 [SYMBICORT 160/4.5mcg -] Insulin Aspart [Novolog] 10 unit SQ TID 10/29/16 Insulin Glargine,Hum.rec.anlog 40 units SQ BID 10/29/16 [Lantus (nf)] Lisinopril 10 mg PO DAILY 10/29/16 Prednisone [Deltasone -] 20 mg PO BID 10/29/16 Prochlorperazine Maleate 5 mg PO PRN 10/29/16 Ranitidine [Zantac -] 300 mg PO ONCE 10/29/16 Sertraline HCl 25 mg PO DAILY 10/29/16 REVIEW OF SYSTEMS CONSTITUTIONAL: Absent: fever, diaphoresis HEENT: Absent: rhinorrhea, nasal congestion CARDIOVASCULAR: Absent: chest pain, syncope, palpitations, irregular heart rate RESPIRATORY: Absent: orthopnea, wheezing, stridor, hemoptysis GASTROINTESTINAL: Absent: abdominal pain, abdominal distension, vomiting, diarrhea, constipation, melena, hematochezia GENITOURINARY: Absent: dysuria, frequency, urgency, hematuria, flank pain MUSCULOSKELETAL: Absent: myalgia SKIN: Absent: rash, itching, pallor HEMATOLOGIC/IMMUNOLOGIC: Absent:frequent infections ENDOCRINE: Absent: unexplained weight loss, heat intolerance NEUROLOGIC: Absent: seizure, mental status changes, bladder or bowel incontinence PSYCHIATRIC: Absent: hallucinations. PHYSICAL EXAMINATION GENERAL: Awake, alert, and fully oriented, lethargic in no acute distress. Cushingoid appearance HEAD: Normal with no signs of trauma. EYES: Pupils equal, round and reactive to light, extraocular movements intact, sclera anicteric, conjunctiva clear. No lid lag. EARS, NOSE, THROAT: Moist mucous membranes. throat slightly erythematous, some white exudate on tongue NECK: supple, very full LUNGS: diffuse wheezes HEART: Regular rate and rhythm, normal S1 and S2 ABDOMEN: Soft, slightly tender RLQ (chronic), diffusely lumpy, obese, normoactive bowel sounds, no guarding, no rebound MUSCULOSKELETAL: tenderness over shins. No CVA tenderness. UPPER EXTREMITIES: 2+ pulses, warm, well-perfused. No cyanosis. No clubbing. trace peripheral edema. LOWER EXTREMITIES: not palpable pulses, warm, well-perfused. diffuse calf tenderness. 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 NEUROLOGICAL: Cranial nerves II-XII intact. Normal speech. 4-strenght lower extreitites, 4+ upper extremities, sensation itact except for toes and finger tips PSYCHIATRIC: Cooperative. Good eye contact. Appropriate mood and affect. SKIN: Warm, dry, bruises on forearms ASSESSMENT/PLAN: This is a 66 yo F with PMH of cervical CA w lung mets, on daily prednisone (dx 2008, sp IV chemo 5 yrs ago, currently on PO chemo), asthma, hypothyroidism, CAD , IDDM, DVT (off lovenox and ASA x 1 p/d cataract sho), who presents per PCP request due to lethargy and malaise x 2 w with worsening over past 4 days. Lethargy/malaise accompanied -suspect endocrine causes which would best explain the various nonspecific symptoms -volume depletion component-continue IV hydration -worsening anemia component -r/o inadequate hormone replacement in setting of hypothyroidism: f/u TSH, fT4 -r/o sellar mass, this will nopt show up on CT and needs MRI to confirm: f/u IGF -1, prolactin Acute on chronic microcytic anemia -Hgb drop from 11.9 to 10.3 in 1 mo -f/u Fe studies, could be due to chronic disease; f/u stool occult blood Relative hypotension -baseline BP 130-140 systolic -vol depletion vs endocrine causes -hold BP meds -f/u urine studies -IV hydration SARAH -BUN/Creat 18/1.3 upr from creat 0.9 2 w ago; hyapine casts -unexplained chronic hematuria on UA 3+ blood; may be bleeding polyin in setting of anticoagulation therapy -possible UTI 1+ leuk est and 18 wbc; f/u urine cultures; start rocephin -patient diabetic but diabetic nephropathy is usually chronic and involves proteinuria rather than hematuria. -likely prerental, will IV hydrate and trend creat -r/o intrarenal causes with urine lytes, fena, urine eosinophils; patient has not been on new meds recently -r/o postrenal causes with renal US IDDM -BGM ACHS, -Sliding scale -levemir 40 bid DVT history: -hold a/c unless patient gets upgraed from obs CAD -hold asa HLD -pharmacy does not confirm any statin therapy Stage IV cervical CA, lung mets -Continue prednisone 10 d, albuterol nebs, singulair -CXR stable, slight increse in nodule size -continue PO chemo regimen Chronic back pain -oxycodone 10 tid prn FEN NS@100 lytes stable diabetic na restricted diet hold a/c, zantac Dispo: obs tele Problem List - Problem (1) Lethargy Code(s): R53.83 - OTHER FATIGUE (2) Cervical cancer Code(s): C53.9 - MALIGNANT NEOPLASM OF CERVIX UTERI, UNSPECIFIED (3) Chronic hypoxemic respiratory failure Code(s): J96.11 - CHRONIC RESPIRATORY FAILURE WITH HYPOXIA (4) Chronic pain Code(s): G89.29 - OTHER CHRONIC PAIN Qualifiers: Chronic pain type: due to neoplasm Qualified Code(s): G89.3 - Neoplasm related pain (acute) (chronic) (5) Metastasis to lung Code(s): C78.00 - SECONDARY MALIGNANT NEOPLASM OF UNSPECIFIED LUNG (6) Metastatic disease Code(s): C79.9 - SECONDARY MALIGNANT NEOPLASM OF UNSPECIFIED SITE (7) Obesity Code(s): E66.9 - OBESITY, UNSPECIFIED (8) Primary cervical cancer with metastasis to other site Code(s): C53.9 - MALIGNANT NEOPLASM OF CERVIX UTERI, UNSPECIFIED C79.9 - SECONDARY MALIGNANT NEOPLASM OF UNSPECIFIED SITE (9) Steroid dependence Code(s): XCF1495 - (10) Asthma Code(s): J45.909 - UNSPECIFIED ASTHMA, UNCOMPLICATED Qualifiers: Asthma severity: unspecified severity Asthma complication type: with acute exacerbation Qualified Code(s): J45.901 - Unspecified asthma with ( acute) exacerbation (11) Chronic steroid use Code(s): XHL6335 - (12) Diabetes Code(s): E11.9 - TYPE 2 DIABETES MELLITUS WITHOUT COMPLICATIONS Qualifiers: Diabetes mellitus type: type 2 Diabetes mellitus complication status: without complication (13) History of DVT of lower extremity Code(s): Z86.718 - PERSONAL HISTORY OF OTHER VENOUS THROMBOSIS AND EMBOLISM (14) Hyperlipidemia Code(s): E78.5 - HYPERLIPIDEMIA, UNSPECIFIED Qualifiers: Hyperlipidemia type: unspecified Qualified Code(s): E78.5 - Hyperlipidemia, unspecified (15) Hypertension Code(s): I10 - ESSENTIAL (PRIMARY) HYPERTENSION Qualifiers: Hypertension type: essential hypertension Qualified Code(s): I10 - Essential (primary) hypertension (16) Hypothyroidism Code(s): E03.9 - HYPOTHYROIDISM, UNSPECIFIED Qualifiers: Hypothyroidism type: unspecified Qualified Code(s): E03.9 - Hypothyroidism, unspecified Visit type - Emergency Visit Emergency Visit: Yes ED Registration Date: 10/29/16 Care time: The patient presented to the Emergency Department on the above date and was hospitalized for further evaluation of their emergent condition. - New Patient This patient is new to me today: Yes Date on this admission: 10/29/16 - Critical Care Critical Care patient: No
[2016-10-29] MEDS ORDERED: RANITIDINE HCL 150 MG TABLET (FP) PO ONE (14:30)
[2016-10-29] MEDS ORDERED: ONDANSETRON 4 MG/2 ML VIAL IVPUSH PRN (14:57)
[2016-10-29] MEDS ORDERED: INSULIN (NOVOLOG) ASPART 100 UNITS/ML 10ML VIAL ONE ×2 (16:57→20:52)
[2016-10-29] MEDS: RANITIDINE HCL 150 MG TABLET (FP) PO SCH (16:59)
[2016-10-29] MEDS: SODIUM CHLORIDE 1,000 ML IV SCH (17:00)
[2016-10-29] MEDS: INSULIN SLIDING SCALE (NOVOLOG) 1 VIAL SQ SCH ×2 (17:01→21:32)
[2016-10-29] MEDS: NYSTATIN 500,000 UNITS/5 ML SUSPENSION PO SCH ×2 (18:38→23:11)
--- NOTE | 2016-10-29 18:53 | PN ---
Teaching Attending Note Name of Resident: Magui Franklin ATTENDING PHYSICIAN STATEMENT I saw and evaluated the patient. I reviewed the resident's note and discussed the case with the resident. I agree with the resident's findings and plan as documented. Patient admitted for SARAH , pre- renal- IVF and microcytic anemia, r/o GI bleed , FOBT and anemia panel. Patient placed in observation, can be discharged if stable in AM.
[2016-10-29] MEDS: ALBUTEROL SO4 0.083% IH SOL 2.5 MG/3 ML VIAL.NEB. NEB PRN (20:30)
[2016-10-29] MEDS: MEGESTROL ACETATE 40 MG TABLET PO SCH (21:31)
[2016-10-29] MEDS: MONTELUKAST NA 10 MG TABLET PO SCH (21:31)
[2016-10-29] MEDS: INSULIN DETEMIR 100 UNITS/ML MDV SQ SCH (21:32)
[2016-10-29] MEDS: ALPRAZolam 0.25 MG TABLET PO PRN (21:38)
[2016-10-29] MEDS ORDERED: predniSONE 20 MG TABLET (UD) PO SCH (22:00)
[2016-10-29] MEDS ORDERED: PATIENT'S OWN MEDICATION (NON-FORMULARY) (Insulin Glargine,Hum.Rec.Anlog 40 UNITS) SQ SCH (22:00)
[2016-10-29] MEDS: oxyCODONE HCL 5 MG TABLET PO PRN (23:10)
[2016-10-30] MEDS: ALBUTEROL SO4 0.083% IH SOL 2.5 MG/3 ML VIAL.NEB. NEB PRN ×3 (02:55→13:08)
[2016-10-30] MEDS: INSULIN SLIDING SCALE (NOVOLOG) 1 VIAL SQ SCH ×4 (06:24→21:19)
[2016-10-30] MEDS: INSULIN DETEMIR 100 UNITS/ML MDV SQ SCH ×2 (06:24→21:19)
[2016-10-30] MEDS: NYSTATIN 500,000 UNITS/5 ML SUSPENSION PO SCH ×4 (06:24→23:55)
[2016-10-30] MEDS: ALPRAZolam 0.25 MG TABLET PO PRN ×2 (06:50→15:37)
[2016-10-30] MEDS: oxyCODONE HCL 5 MG TABLET PO PRN ×3 (06:50→20:01)
[2016-10-30] MEDS ORDERED: INSULIN (NOVOLOG) ASPART 100 UNITS/ML 10ML VIAL ONE (06:54)
[2016-10-30] MEDS ORDERED: PT OWN MED DRAWER 7, Y5N ONE ×3 (06:55→21:13)
[2016-10-30] MEDS ORDERED: LEVOTHYROXINE NA 100 MCG TABLET (FP) PO SCH (07:00)
[2016-10-30 08:05] LABS: MCH 26.7 pg (25.7-33.7); MCHC 33.6 g/dl (32.0-36.0); MEAN CELL VOLUME 79.5 fl (80-96); MEAN PLT VOLUME 7.9 fl (7.5-11.1); PLATELET COUNT 203 K/MM3 (134-434); RDW 17.8 % (11.6-15.6); WHITE BLOOD COUNT 6.7 K/mm3 (4.0-10.0)
[2016-10-30 08:48] LABS: ANION GAP 9 (8-16); CALCIUM 7.9 mg/dL (8.5-10.1); CO2 26 mmol/L (21-32); CREATININE 0.9 mg/dL (0.55-1.02); GLUCOSE,RANDOM 228 mg/dL (74-106); MAGNESIUM 1.7 mg/dL (1.8-2.4); PHOSPHOROUS 1.9 mg/dL (2.5-4.9)
[2016-10-30] MEDS: SODIUM CHLORIDE 1,000 ML IV SCH ×3 (08:57→23:54)
[2016-10-30 08:59] LABS: THYROID STIMULATING HORMONE 7.17 uIU/ml (0.358-3.74)
[2016-10-30] MEDS: predniSONE 5 MG TABLET (UD) PO SCH (09:33)
[2016-10-30] MEDS: MEGESTROL ACETATE 40 MG TABLET PO SCH ×2 (09:33→21:20)
[2016-10-30] MEDS ORDERED: FUROSEMIDE 20 MG TABLET (FP) PO SCH (10:00)
--- NOTE | 2016-10-30 15:28 | MSN ---
Progress Note (short form) - Note Progress Note: Subjective: Patient is an obese 66yo female with PMHx of cervical CA with lung metastases, asthma, hypothyroidism, CAD, PAD, DVT, DM type 2, chronic back pain, anxiety, and depression who presented to the ED per PCP request with chief complaint of lethargy and malaise. History of Present Illness: She states that she began feeling more tired than usual approximately two weeks ago, which worsened over the past few days. She was scheduled for cataract surgery of the left eye yesterday morning, but her physician noted signs of significant lethargy and malaise and requested that she be sent to the ED. Patient admits to general weakness, malaise, dizziness, wheezing, blurred vision (left eye), eye pain (left eye), oral thrush, swelling of arms and legs, and back pain. ROS: General: Chills, lethargy, malaise, weakness, dizziness. Denies fever, loss of appetite Eyes: Blurry vision (left eye), sharp eye pain (left eye), dry eyes ENT: Oral thrush for past two weeks. Denies dysphagia, congestion Neck: Some pain with left sidebending Cardiovascular: Swelling of arms, face, and legs. Denies chest pain or palpitations Respiratory: Increased SOB, productive cough with pink sputum, wheezing, and breathing with accessory muscles. Denies hemoptysis, orthopnea Gastrointestinal: Constipation, nausea, vomiting. Denies diarrhea, melena, blood in stool, and abdominal pain Genitourinary: Denies dysuria, polyuria, hematuria, and urgency MSK: Back pain that starts in cervical spine that travels down Hematology: Easy bruising. Denies bleeding Endocrinology: Cold intolerance. Denies heat intolerance Psychiatric: Depression, anxiety. 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) * Recent travel: Denies Medications: Clotrimazole 10mg ning 1 tablet five times per day Zofran 4mg PO BID PRN Zantac 300mg PO Once Losartan 50mg Lantus 40 units SQ BID Novolog 10 units SQ TID Oxycodone 15mg PO TID PRN Tamoxifen 20mg PO BID Megase 40mg x 2 tabs PO BID Nystatin powder BID Lovenox 0.8mL daily (stopped one week ago) Aspirin 81mg PO daily (stopped one week ago) Synthroid 100mcg PO daily Lasix 20mg PO daily Albuterol 2 inh PO Q4H PRN Prednisone 10mg PO daily Montelukast 10mg HS Xanax 0.25mg PO Q8H PRN Megestrol 80mg PO BID Allergies Allergy/AdvReac Type Severity Reaction Status Date / Time Penicillins Allergy Unknown Hives Verified 10/29/16 09:17 Objective: Vital Signs Period Temp Pulse Resp BP Sys/Encarnacion Pulse Ox Last 24 Hr 97.4 F-98.4 F 91-100 16-22 111-137/63-79 95-100 Physical Exam: General: Alert and orientedx3, lethargic, lethargic, obese, with Cushingoid appearance. Eyes: PERLLA, extraocular movements intact, sclera anicteric. ENT: Moist mucous membranes, no noticeable oral thrush. Neck: Supple with significant fullness Heart: Regular rate and rhythm, normal S1 and S2 Lungs: Diffuse wheezes bilaterally Upper Extremities: 2+ pulses, warm, dry, 1+ peripheral edema bilaterally Lower Extremities: 2+ pulse on left, not palpable on right, warm, dry, 2+ peripheral edema bilaterally Neurological: Cranial nerves II-XII intact, 4/5 strength in LE, 4+/5 strength in upper extremities Skin: Warm, dry, bruises on both forearms Laboratory Results - last 24 hr 10/29/16 10/29/16 10/29/16 10:23 16:50 21:14 WBC RBC Hgb Hct MCV MCH MCHC RDW Plt Count MPV Sodium Potassium Chloride Carbon Dioxide Anion Gap BUN Creatinine POC Glucometer 312 302 Random Glucose Calcium Phosphorus Magnesium Ferritin TSH Urine Color Yellow Urine Appearance Clear Urine pH 5.0 Ur Specific Jasper 1.020 Urine Protein 1+ H Urine Glucose (UA) 3+ H Urine Ketones Negative Urine Blood Negative Urine Nitrite Negative Urine Bilirubin Negative Urine Urobilinogen Negative Ur Leukocyte Esterase 1+ H Urine RBC 1 Urine WBC 18 Ur Epithelial Cells Few Urine Bacteria Rare Hyaline Casts 21 Urine Mucus Rare 10/30/16 10/30/16 10/30/16 06:00 06:00 06:00 WBC 6.7 D RBC 3.52 L Hgb 9.4 L Hct 28.0 L MCV 79.5 L MCH 26.7 MCHC 33.6 RDW 17.8 H Plt Count 203 MPV 7.9 Sodium 138 Potassium 3.9 Chloride 103 Carbon Dioxide 26 Anion Gap 9 BUN 12 D Creatinine 0.9 D POC Glucometer Random Glucose 228 H D Calcium 7.9 L Phosphorus 1.9 L D Magnesium 1.7 L Ferritin 126.958 TSH 7.17 H D Urine Color Urine Appearance Urine pH Ur Specific Jasper Urine Protein Urine Glucose (UA) Urine Ketones Urine Blood Urine Nitrite Urine Bilirubin Urine Urobilinogen Ur Leukocyte Esterase Urine RBC Urine WBC Ur Epithelial Cells Urine Bacteria Hyaline Casts Urine Mucus 10/30/16 10/30/16 06:23 11:43 WBC RBC Hgb Hct MCV MCH MCHC RDW Plt Count MPV Sodium Potassium Chloride Carbon Dioxide Anion Gap BUN Creatinine POC Glucometer 214 248 Random Glucose Calcium Phosphorus Magnesium Ferritin TSH Urine Color Urine Appearance Urine pH Ur Specific Jasper Urine Protein Urine Glucose (UA) Urine Ketones Urine Blood Urine Nitrite Urine Bilirubin Urine Urobilinogen Ur Leukocyte Esterase Urine RBC Urine WBC Ur Epithelial Cells Urine Bacteria Hyaline Casts Urine Mucus Assessment/Plan: Patient is a 66yo female with PMHx cervical CA with lung metastases, hypothyroidism, CAD, PAD, asthma, DVT, HTN, HLD, and chronic back pain who presents per PCP request c/o lethargy, malaise, and generalized weakness. #Hypothyroidism - Levothyroxine increased from 100mcg to 112mcg - Repeat TSH and T4 levels in 6wks with PCP #Microcytic anemia - Repeat CBC - Monitor Hgb - Initial reduction may be from introduction of IV fluids - r/o possible bleed #Hyperglycemia - Monitor glucose - Continue Lantus with sliding scale Novolog #Cervical CA with lung metastases and chronic back pain - Notify oncologist of enlarged masses from previous imaging in August 2016 - R/o metastases to spine or other bones
[2016-10-30 15:38] LABS: MCH 26.2 pg (25.7-33.7); MCHC 32.9 g/dl (32.0-36.0); MEAN CELL VOLUME 79.5 fl (80-96); MEAN PLT VOLUME 7.9 fl (7.5-11.1); PLATELET COUNT 208 K/MM3 (134-434); RDW 18.2 % (11.6-15.6); WHITE BLOOD COUNT 6.7 K/mm3 (4.0-10.0)
[2016-10-30 15:49] LABS: MAGNESIUM 1.6 mg/dL (1.8-2.4); PHOSPHOROUS 2.1 mg/dL (2.5-4.9)
[2016-10-30] MEDS ORDERED: MAGNESIUM OXIDE 400 MG TABLET (FP) PO ONE (16:19)
[2016-10-30] MEDS ORDERED: NAPH,MB-DB/K PH,MBDB POWDER PACKET PO ONE (16:19)
--- NOTE | 2016-10-30 17:29 | PN ---
Teaching Attending Note Name of Resident: Mark Walter ATTENDING PHYSICIAN STATEMENT I saw and evaluated the patient. I reviewed the resident's note and discussed the case with the resident. I agree with the resident's findings and plan as documented. SUBJECTIVE:continues to feel lethargic. denies Cp, SOB,fever, chills, N/V/C/D, hematuria, BRBPR OBJECTIVE: Last Vital Signs Temp Pulse Resp BP Pulse Ox 98.9 F 102 H 20 160/71 98 10/30/16 14:44 10/30/16 14:44 10/30/16 14:44 10/30/16 14:44 10/30/16 05:46 General NAD, dry oral mucosa HEENT cushingoid facies, unable to appreciate thyroid, no nodules. no buffalo hump CV S1 S2 RRR no murmur/rub/gallop Lungs CTA B/L no wheezing/rales/rhonchi Extremities 1+pitting edema, bruising on B/L UE extremities at various stages of healing (limited to extensor surfaces) ASSESSMENT AND PLAN: 66yo F wtih PMH cervical cancer with lung mets on chemo, hypothyroid, CAD, DM and DVT presented to the ER with lethargy for several months 1. Lethargy- likely due to elevated TSH vs dehydration. increase LT4 to 112mcg. on IVF for hydration. hold lasix. will need repeat TSH in 6 weeks. informed pt 2. cushingoid appearances- likely due to chronic steroid use due to malignancy. cortisol level sent. cont steroid at this time. 3. ramon- likely dehydration. resolved 4. normocytic anemia- no signs of bleeding. likely dilutional component. now stable 5. Hypomagnesemia- Mg 800mg 6. hypophophatemia- neutraphos 7. d/c planning in the AM
[2016-10-30] MEDS: RANITIDINE HCL 150 MG TABLET (FP) PO SCH (17:41)
--- NOTE | 2016-10-30 17:51 | PN ---
Physical Exam: SUBJECTIVE: Patient seen and examined at bedside. Pt complains of feeling tired and has aches and pains. Denies headache, cp, sob, abd pain, nausea, vomiting, diarrhea, dysuria, fever. OBJECTIVE: Vital Signs Period Temp Pulse Resp BP Sys/Encarnacion Pulse Ox Last 24 Hr 98.2 F-98.9 F 91-102 20-22 111-160/63-79 98-98 GENERAL: The patient is awake, alert, and fully oriented, in no acute distress. HEAD: Normal with no signs of trauma. EYES: PERRL, extraocular movements intact, sclera anicteric, conjunctiva clear. No ptosis. ENT: oropharynx clear without exudates, moist mucous membranes. NECK: Trachea midline, full range of motion, supple. LUNGS: Breath sounds equal, clear to auscultation bilaterally, no wheezes, no crackles, no accessory muscle use. HEART: Regular rate and rhythm, normal S1, S2 without murmur, rub or gallop. ABDOMEN: Soft, nontender, nondistended, normoactive bowel sounds, no guarding, no rebound, no hepatosplenomegaly, no masses. EXTREMITIES: 2+ pulses, warm, well-perfused, no edema. NEUROLOGICAL: Cranial nerves II through XII grossly intact. Normal speech, gait not observed. PSYCH: Normal mood, normal affect. SKIN: Warm, dry, normal turgor, numerous ecchymoses consistent with cushingoid appearance Laboratory Results - last 24 hr 10/29/16 10/30/16 10/30/16 21:14 06:00 06:00 WBC 6.7 D RBC 3.52 L Hgb 9.4 L Hct 28.0 L MCV 79.5 L MCH 26.7 MCHC 33.6 RDW 17.8 H Plt Count 203 MPV 7.9 Sodium 138 Potassium 3.9 Chloride 103 Carbon Dioxide 26 Anion Gap 9 BUN 12 D Creatinine 0.9 D POC Glucometer 302 Random Glucose 228 H D Calcium 7.9 L Phosphorus 1.9 L D Magnesium 1.7 L Ferritin TSH 7.17 H D Urine Eosinophils 10/30/16 10/30/16 10/30/16 06:00 06:00 06:23 WBC RBC Hgb Hct MCV MCH MCHC RDW Plt Count MPV Sodium Potassium Chloride Carbon Dioxide Anion Gap BUN Creatinine POC Glucometer 214 Random Glucose Calcium Phosphorus Magnesium Ferritin 126.958 TSH Urine Eosinophils Cancelled 10/30/16 10/30/16 10/30/16 11:43 14:20 14:20 WBC 6.7 RBC 3.52 L Hgb 9.2 L Hct 28.0 L MCV 79.5 L MCH 26.2 MCHC 32.9 RDW 18.2 H Plt Count 208 MPV 7.9 Sodium Potassium Chloride Carbon Dioxide Anion Gap BUN Creatinine POC Glucometer 248 Random Glucose Calcium Phosphorus 2.1 L Magnesium 1.6 L Ferritin TSH Urine Eosinophils 10/30/16 17:10 WBC RBC Hgb Hct MCV MCH MCHC RDW Plt Count MPV Sodium Potassium Chloride Carbon Dioxide Anion Gap BUN Creatinine POC Glucometer 359 Random Glucose Calcium Phosphorus Magnesium Ferritin TSH Urine Eosinophils Active Medications Generic Name Dose Route Start Last Admin Trade Name Freq PRN Reason Stop Dose Admin Albuterol Sulfate 1 amp 10/29/16 14:18 10/30/16 13:08 Ventolin 0.083% Nebulizer Soln - NEB 1 amp Q4H PRN Administration SHORT OF BREATH/WHEEZING Alprazolam 0.5 mg 10/29/16 14:26 10/30/16 15:37 Xanax - PO 0.5 mg Q8H PRN Administration ANXIETY Furosemide 20 mg 10/30/16 10:00 10/30/16 09:33 Lasix - PO 20 mg DAILY RAFA Administration Sodium Chloride 1,000 mls @ 100 mls/hr 10/29/16 14:30 10/30/16 15:43 Normal Saline - IV Not Given ASDIR RAFA Insulin Aspart 0 vial 10/29/16 16:30 10/30/16 12:12 Novolog Vial Sliding Scale - SQ 4 units ACHS RAFA Administration Protocol Insulin Detemir 40 units 10/29/16 22:00 10/30/16 06:24 Levemir Vial SQ 40 unit BID@0700,2200 RAFA Administration Levothyroxine Sodium 112 mcg 10/31/16 07:00 Synthroid - PO DAILY@0700 RAFA Megestrol Acetate 80 mg 10/29/16 22:00 10/30/16 09:33 Megace - PO 80 mg BID RAFA Administration Montelukast Sodium 10 mg 10/29/16 22:00 10/29/16 21:31 Singulair - PO 10 mg HS RAFA Administration Nystatin 500,000 units 10/29/16 18:00 10/30/16 11:45 Nystatin Oral Suspension - PO 500,000 units Q6HPO RAFA Administration Ondansetron HCl 4 mg 10/29/16 14:57 Zofran Injection IVPUSH Q6H PRN NAUSEA AND/OR VOMITING Oxycodone HCl 10 mg 10/29/16 14:25 10/30/16 12:46 Roxicodone - PO 10 mg Q6H PRN Administration PAIN Prednisone 10 mg 10/30/16 10:00 10/30/16 09:33 Deltasone - PO 10 mg DAILY RAFA Administration ASSESSMENT/PLAN: This is a 66 yo F with PMH of cervical CA w lung mets, on daily prednisone (dx 2008, sp IV chemo 5 yrs ago, currently on PO chemo), asthma, hypothyroidism, CAD , IDDM, DVT (off lovenox and ASA x 1 p/d cataract sho), who presents per PCP request due to lethargy and malaise x 2 w with worsening over past 4 days. #Lethargy/malaise - TSH: 7.17 -volume depletion component-continue IV hydration -hold lasix -r/o sellar mass, this will not show up on CT and needs MRI to confirm: f/u IGF- 1, prolactin Acute on chronic microcytic anemia: likely dilutional -Hgb drop from 11.9 to 10.3 in 1 mo. Now 9.2 -f/u Fe studies, could be due to chronic disease; f/u stool occult blood Relative hypotension -baseline BP 130-140 systolic -vol depletion vs endocrine causes -hold BP meds -f/u urine studies -IV hydration SARAH: RESOLVED -BUN/Creat 12/0.9 -likely prerental, will IV hydrate and trend creat IDDM -BGM ACHS, -Sliding scale -levemir 40 bid DVT history: -hold a/c unless patient gets upgraed from obs CAD -hold asa HLD -pharmacy does not confirm any statin therapy Stage IV cervical CA, lung mets -Continue prednisone 10 d, albuterol nebs, singulair -CXR stable, slight increse in nodule size -continue PO chemo regimen Chronic back pain -oxycodone 10 tid prn FEN NS@100 lytes repleted diabetic na restricted diet hold a/c, zantac Dispo: obs tele Visit type - Emergency Visit Emergency Visit: No - New Patient This patient is new to me today: No - Critical Care Critical Care patient: No
[2016-10-30] MEDS: MONTELUKAST NA 10 MG TABLET PO SCH (21:20)
[2016-10-31] MEDS: ALPRAZolam 0.25 MG TABLET PO PRN ×3 (00:03→16:36)
[2016-10-31] MEDS: oxyCODONE HCL 5 MG TABLET PO PRN ×4 (02:32→22:27)
[2016-10-31] MEDS: ALBUTEROL SO4 0.083% IH SOL 2.5 MG/3 ML VIAL.NEB. NEB PRN (02:58)
[2016-10-31 06:06] LABS: PROLACTIN 29.7 ng/mL (4.8-23.3)
[2016-10-31] MEDS ORDERED: INSULIN (NOVOLOG) ASPART 100 UNITS/ML 10ML VIAL ONE (06:24)
[2016-10-31] MEDS: INSULIN DETEMIR 100 UNITS/ML MDV SQ SCH ×2 (06:28→22:19)
[2016-10-31] MEDS: INSULIN SLIDING SCALE (NOVOLOG) 1 VIAL SQ SCH ×4 (06:28→22:18)
[2016-10-31] MEDS: NYSTATIN 500,000 UNITS/5 ML SUSPENSION PO SCH ×4 (06:29→17:42)
[2016-10-31] MEDS ORDERED: LEVOTHYROXINE NA 100 MCG TABLET (FP) PO SCH (07:00)
[2016-10-31] MEDS: LEVOTHYROXINE NA 112 MCG TABLET (FP) PO SCH (07:51)
[2016-10-31 08:32] LABS: MCH 26.5 pg (25.7-33.7); MCHC 32.9 g/dl (32.0-36.0); MEAN CELL VOLUME 80.6 fl (80-96); MEAN PLT VOLUME 7.9 fl (7.5-11.1); PLATELET COUNT 214 K/MM3 (134-434); RDW 18.2 % (11.6-15.6); WHITE BLOOD COUNT 6.9 K/mm3 (4.0-10.0)
[2016-10-31] MEDS ORDERED: MAGNESIUM SULF 50% (8.12 MEQ/2 ML-1 GM VIAL) IVPB ONE (08:32)
[2016-10-31 08:33] LABS: MAGNESIUM 1.9 mg/dL (1.8-2.4); PHOSPHOROUS 2.3 mg/dL (2.5-4.9)
[2016-10-31] MEDS: predniSONE 5 MG TABLET (UD) PO SCH ×2 (08:36→10:39)
[2016-10-31 09:11] LABS: FREE T4 0.93 ng/dl (0.76-1.46)
--- NOTE | 2016-10-31 09:34 | PN ---
Teaching Attending Note Name of Resident: Mark Walter ATTENDING PHYSICIAN STATEMENT I saw and evaluated the patient. I reviewed the resident's note and discussed the case with the resident. I agree with the resident's findings and plan as documented. SUBJECTIVE: Patient is having shortness of breath, wheezing. OBJECTIVE: Vital Signs Temperature 98.8 F 10/31/16 06:37 Pulse Rate 95 H 10/31/16 06:37 Respiratory Rate 20 10/31/16 06:37 Blood Pressure 133/73 10/31/16 06:37 O2 Sat by Pulse Oximetry (%) 97 10/30/16 23:00 CBCD WBC 6.9 K/mm3 (4.0-10.0) 10/31/16 06:10 RBC 3.47 M/mm3 (3.60-5.2) L 10/31/16 06:10 Hgb 9.2 GM/dL (10.7-15.3) L 10/31/16 06:10 Hct 28.0 % (32.4-45.2) L 10/31/16 06:10 MCV 80.6 fl (80-96) 10/31/16 06:10 MCHC 32.9 g/dl (32.0-36.0) 10/31/16 06:10 RDW 18.2 % (11.6-15.6) H 10/31/16 06:10 Plt Count 214 K/MM3 (134-434) 10/31/16 06:10 MPV 7.9 fl (7.5-11.1) 10/31/16 06:10 CMP Sodium 138 mmol/L (136-145) 10/30/16 06:00 Potassium 3.9 mmol/L (3.5-5.1) 10/30/16 06:00 Chloride 103 mmol/L (98-107) 10/30/16 06:00 Carbon Dioxide 26 mmol/L (21-32) 10/30/16 06:00 Anion Gap 9 (8-16) 10/30/16 06:00 BUN 12 mg/dL (7-18) D 10/30/16 06:00 Creatinine 0.9 mg/dL (0.55-1.02) D 10/30/16 06:00 Creat Clearance w eGFR 41.11 (>60) 10/29/16 10:23 Random Glucose 228 mg/dL (74-106) H D 10/30/16 06:00 Calcium 7.9 mg/dL (8.5-10.1) L 10/30/16 06:00 Total Bilirubin 0.5 mg/dL (0.2-1.0) D 10/29/16 10:23 AST 34 U/L (15-37) D 10/29/16 10:23 ALT 35 U/L (12-78) D 10/29/16 10:23 Alkaline Phosphatase 97 U/L (45-117) 10/29/16 10:23 Total Protein 6.1 g/dl (6.4-8.2) L 10/29/16 10:23 Albumin 2.7 g/dl (3.4-5.0) L 10/29/16 10:23 CARDIAC ENZYMES Troponin I < 0.02 ng/ml (0.00-0.05) 10/29/16 10:23 Current Medications Generic Name Dose Route Start Last Admin Trade Name Freq PRN Reason Stop Dose Admin Albuterol Sulfate 1 amp 10/29/16 14:18 10/31/16 02:58 Ventolin 0.083% Nebulizer Soln - NEB 1 amp Q4H PRN Administration SHORT OF BREATH/WHEEZING Alprazolam 0.5 mg 10/29/16 14:26 10/31/16 08:35 Xanax - PO 0.5 mg Q8H PRN Administration ANXIETY Furosemide 20 mg 10/30/16 10:00 10/30/16 09:33 Lasix - PO 20 mg DAILY RAFA Administration Sodium Chloride 1,000 mls @ 100 mls/hr 10/29/16 14:30 10/30/16 23:54 Normal Saline - IV 100 mls/hr ASDIR RAFA Administration Insulin Aspart 0 vial 10/29/16 16:30 10/31/16 06:28 Novolog Vial Sliding Scale - SQ 6 units ACHS [facility] Administration Protocol Insulin Detemir 40 units 10/29/16 22:00 10/31/16 06:28 Levemir Vial SQ 40 unit BID@0700,2200 RAFA Administration Levothyroxine Sodium 112 mcg 10/31/16 07:00 10/31/16 07:51 Synthroid - PO Not Given DAILY@0700 [facility] Megestrol Acetate 80 mg 10/29/16 22:00 10/30/16 21:20 Megace - PO 80 mg BID RAFA Administration Montelukast Sodium 10 mg 10/29/16 22:00 10/30/16 21:20 Singulair - PO 10 mg HS RAFA Administration Nystatin 500,000 units 10/29/16 18:00 10/31/16 06:29 Nystatin Oral Suspension - PO 500,000 units Q6HPO RAFA Administration Ondansetron HCl 4 mg 10/29/16 14:57 10/30/16 20:02 Zofran Injection IVPUSH 4 mg Q6H PRN Administration NAUSEA AND/OR VOMITING Oxycodone HCl 10 mg 10/29/16 14:25 10/31/16 08:35 Roxicodone - PO 10 mg Q6H PRN Administration PAIN Prednisone 10 mg 10/30/16 10:00 10/31/16 08:36 Deltasone - PO 10 mg DAILY RAFA Administration Home Medications Medication Instructions Recorded Albuterol Sulfate Inhaler - 2 inh PO Q6H 08/30/16 [Ventolin HFA Inhaler -] Alprazolam [Xanax] 0.25 mg PO Q6H 08/30/16 Aspirin [ASA -] 81 mg PO DAILY 08/30/16 Cholecalciferol (Vitamin D3) 1,000 unit PO Q7D 08/30/16 [Vitamin D -] Furosemide [Lasix] 20 mg PO DAILY 08/30/16 Levothyroxine [Synthroid -] 100 mcg PO DAILY 08/30/16 Megestrol Acetate 80 mg PO BID 08/30/16 Montelukast Na [Singulair -] 10 mg PO HS 08/30/16 Ondansetron [Zofran -] 4 mg PO BID PRN 08/30/16 Oxycodone HCl 15 mg PO TID PRN 08/30/16 Atorvastatin Ca [Lipitor] 10 mg PO HS 10/29/16 Budesonide/Formeterol Fumarate 1 inh PO BID 10/29/16 [SYMBICORT 160/4.5mcg -] Insulin Aspart [Novolog] 10 unit SQ TID 10/29/16 Insulin Glargine,Hum.rec.anlog 40 units SQ BID 10/29/16 [Lantus (nf)] Lisinopril 10 mg PO DAILY 10/29/16 Prednisone [Deltasone -] 20 mg PO BID 10/29/16 Prochlorperazine Maleate 5 mg PO PRN 10/29/16 Ranitidine [Zantac -] 300 mg PO ONCE 10/29/16 Sertraline HCl 25 mg PO DAILY 10/29/16 PE: Chest: Expiratory wheezing BL ASSESSMENT AND PLAN: 66yo F wtih PMH cervical cancer with lung mets on chemo, hypothyroid, CAD, DM and DVT presented to the ER with lethargy for several months # Acute exacerbation of Asthma on nebulizer treatments, on Prednisone po , Singulair continue ,pulmonary consult # Edema of lower extremities: will discontinue IVF, will place her on IV diuretic 20mg daily x 3 doses. 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 cortisol level sent. cont steroid at this time. # s/p ramon- resolved # normocytic anemia- no signs of bleeding. likely dilutional component. now stable # Hypomagnesemia/ hypophosphotemia repleted. DVT Px: Heparin sq
--- NOTE | 2016-10-31 09:41 | PN ---
Physical Exam: SUBJECTIVE: Patient seen and examined at bedside. OBJECTIVE: Vital Signs Period Temp Pulse Resp BP Sys/Encarnacion Pulse Ox Last 24 Hr 98.4 F-100.3 F 89-102 20-22 114-160/63-73 97-98 GENERAL: The patient is awake, alert, and fully oriented, in no acute distress. HEAD: Normal with no signs of trauma. EYES: PERRL, extraocular movements intact, sclera anicteric, conjunctiva clear. No ptosis. ENT: Ears normal, nares patent, oropharynx clear without exudates, moist mucous membranes. NECK: Trachea midline, full range of motion, supple. LUNGS: Breath sounds equal, clear to auscultation bilaterally, no wheezes, no crackles, no accessory muscle use. HEART: Regular rate and rhythm, S1, S2 without murmur, rub or gallop. ABDOMEN: Soft, nontender, nondistended, normoactive bowel sounds, no guarding, no rebound, no hepatosplenomegaly, no masses. EXTREMITIES: 2+ pulses, warm, well-perfused, no edema. NEUROLOGICAL: Cranial nerves II through XII grossly intact. Normal speech, gait not observed. PSYCH: Normal mood, normal affect. SKIN: Warm, dry, normal turgor, no rashes or lesions noted Laboratory Results - last 24 hr 10/30/16 10/30/16 10/30/16 06:00 06:00 06:00 WBC RBC Hgb Hct MCV MCH MCHC RDW Plt Count MPV POC Glucometer Hemoglobin A1c % Phosphorus Magnesium Iron 57 Transferrin 226 Ferritin 126.958 Free T4 Prolactin Urine Eosinophils Cancelled Ur Random Sodium Ur Random Potassium Ur Random Chloride Urine Creatinine 10/30/16 10/30/16 10/30/16 06:00 06:00 06:00 WBC RBC Hgb Hct MCV MCH MCHC RDW Plt Count MPV POC Glucometer Hemoglobin A1c % Phosphorus Magnesium Iron Transferrin Ferritin Free T4 Prolactin 29.7 H Urine Eosinophils Ur Random Sodium Cancelled 39 Ur Random Potassium 13.2 Ur Random Chloride 26 Urine Creatinine 98.0 10/30/16 10/30/16 10/30/16 06:00 11:43 14:20 WBC 6.7 RBC 3.52 L Hgb 9.2 L Hct 28.0 L MCV 79.5 L MCH 26.2 MCHC 32.9 RDW 18.2 H Plt Count 208 MPV 7.9 POC Glucometer 248 Hemoglobin A1c % Phosphorus Magnesium Iron Transferrin Ferritin Free T4 Prolactin Urine Eosinophils Ur Random Sodium Cancelled Ur Random Potassium Cancelled Ur Random Chloride Cancelled Urine Creatinine 10/30/16 10/30/16 10/30/16 14:20 17:10 21:10 WBC RBC Hgb Hct MCV MCH MCHC RDW Plt Count MPV POC Glucometer 359 395 Hemoglobin A1c % Phosphorus 2.1 L Magnesium 1.6 L Iron Transferrin Ferritin Free T4 Prolactin Urine Eosinophils Ur Random Sodium Ur Random Potassium Ur Random Chloride Urine Creatinine 10/31/16 10/31/16 10/31/16 05:46 06:10 06:10 WBC 6.9 RBC 3.47 L Hgb 9.2 L Hct 28.0 L MCV 80.6 MCH 26.5 MCHC 32.9 RDW 18.2 H Plt Count 214 MPV 7.9 POC Glucometer 266 Hemoglobin A1c % 10.3 H D Phosphorus Magnesium Iron Transferrin Ferritin Free T4 Prolactin Urine Eosinophils Ur Random Sodium Ur Random Potassium Ur Random Chloride Urine Creatinine 10/31/16 06:10 WBC RBC Hgb Hct MCV MCH MCHC RDW Plt Count MPV POC Glucometer Hemoglobin A1c % Phosphorus 2.3 L Magnesium 1.9 Iron Transferrin Ferritin Free T4 0.93 Prolactin Urine Eosinophils Ur Random Sodium Ur Random Potassium Ur Random Chloride Urine Creatinine Active Medications Generic Name Dose Route Start Last Admin Trade Name Freq PRN Reason Stop Dose Admin Albuterol Sulfate 1 amp 10/29/16 14:18 10/31/16 02:58 Ventolin 0.083% Nebulizer Soln - NEB 1 amp Q4H PRN Administration SHORT OF BREATH/WHEEZING Alprazolam 0.5 mg 10/29/16 14:26 10/31/16 08:35 Xanax - PO 0.5 mg Q8H PRN Administration ANXIETY Furosemide 20 mg 10/30/16 10:00 10/30/16 09:33 Lasix - PO 20 mg DAILY RAFA Administration Sodium Chloride 1,000 mls @ 100 mls/hr 10/29/16 14:30 10/30/16 23:54 Normal Saline - IV 100 mls/hr ASDIR RAFA Administration Insulin Aspart 0 vial 10/29/16 16:30 10/31/16 06:28 Novolog Vial Sliding Scale - SQ 6 units ACHS RAFA Administration Protocol Insulin Detemir 40 units 10/29/16 22:00 10/31/16 06:28 Levemir Vial SQ 40 unit BID@0700,2200 RAFA Administration Levothyroxine Sodium 112 mcg 10/31/16 07:00 10/31/16 07:51 Synthroid - PO Not Given DAILY@0700 RAFA Megestrol Acetate 80 mg 10/29/16 22:00 10/30/16 21:20 Megace - PO 80 mg BID RAFA Administration Montelukast Sodium 10 mg 10/29/16 22:00 10/30/16 21:20 Singulair - PO 10 mg HS RAFA Administration Nystatin 500,000 units 10/29/16 18:00 10/31/16 06:29 Nystatin Oral Suspension - PO 500,000 units Q6HPO RAFA Administration Ondansetron HCl 4 mg 10/29/16 14:57 10/30/16 20:02 Zofran Injection IVPUSH 4 mg Q6H PRN Administration NAUSEA AND/OR VOMITING Oxycodone HCl 10 mg 10/29/16 14:25 10/31/16 08:35 Roxicodone - PO 10 mg Q6H PRN Administration PAIN Prednisone 10 mg 10/30/16 10:00 10/31/16 08:36 Deltasone - PO 10 mg DAILY RAFA Administration ASSESSMENT/PLAN: This is a 66 yo F with PMH of cervical CA w lung mets, on daily prednisone (dx 2008, sp IV chemo 5 yrs ago, currently on PO chemo), asthma, hypothyroidism, CAD , IDDM, DVT (left leg, off lovenox and ASA x 1 p/d cataract sho), who presents per PCP request due to lethargy and malaise x 2 w with worsening over past 4 days. #volume overload -hold IVF -Lasix 20mg IV push daily X3d -CXR: mass like opacities, hilar prominence. No infiltrate mentioned. #Asthma/COPD -Cont O2 -Albuterol Neb TID RAFA -Albuterol Neb Q4 PRN -Pulm (Dr. Schmid) recs appreciated #Lethargy/malaise - TSH: 7.17, f/u Free T3/T4 -r/o sellar mass, this will not show up on CT and needs MRI to confirm: f/u IGF- 1, prolactin Acute on chronic microcytic anemia: likely dilutional -Hgb drop from 11.9 to 10.3 in 1 mo. Now 9.2 -f/u Fe studies, could be due to chronic disease; f/u stool occult blood Relative hypotension: RESOLVED -baseline BP 130-140 systolic -vol depletion vs endocrine causes SARAH: RESOLVED -BUN/Creat 12/0.9 -likely prerental, will IV hydrate and trend creat IDDM -BGM ACHS, -Sliding scale -levemir 40 bid #history DVT: -Lovenox 80mg SubQ Q12H CAD -hold asa HLD -pharmacy does not confirm any statin therapy Stage IV cervical CA, lung mets -Continue prednisone 10 d, albuterol nebs, singulair -CXR stable, slight increse in nodule size -continue PO chemo regimen Chronic back pain -oxycodone 10 tid prn FEN NS@100 lytes repleted: 1gm Mg diabetic na restricted diet hold a/c, zantac Dispo: admit to med/surg Meds confirmed with pharmacy Documetnation requested from [facility] where patient had chemo in the past Visit type - Emergency Visit Emergency Visit: No - New Patient This patient is new to me today: No - Critical Care Critical Care patient: No - Discharge Referral Referred to [facility] Med P.C.: No
[2016-10-31] MEDS ORDERED: FUROSEMIDE 40 MG/4 ML INJECTABLE VIAL IVPUSH ONE (10:35)
[2016-10-31] MEDS ORDERED: PT OWN MED DRAWER 7, Y5N ONE (10:56)
[2016-10-31] MEDS: MEGESTROL ACETATE 40 MG TABLET PO SCH ×2 (11:12→22:17)
--- NOTE | 2016-10-31 11:32 | CON.PULM ---
Consult Consult Specialty:: PULMONARY Referred by:: ELLIS Reason for Consultation:: LUNG METS - History of Present Illness Chief Complaint: LETHARGY/FAILURE TO THRIVE History of Present Illness: Ms. Mendieta, known by me from previous consultative opportunities, is a 66 year old female with a past medical history significant for Cervical cancer w/ lung mets, cholecystectomy, and DVT (off lovenox and ASA for 1 week) who presents to the emergency department with 4 day history of sleepiness and drifting off during conversation. She was scheduled for cataract surgery this AM but presented to the ER per physician direction after showing up for her appt this AM. Ms. Mendieta denies chest pain, hemoptysis, fever,chills or night sweats. She lives at home and is taken care of by her family. She has an oncologist in [facility] and is on chronic steroids and megace which are contributing to her cushinoid appearance. - History Source History Provided By: Patient, Medical Record Limitations to Obtaining History: Clinical Condition - Past Medical History [employer]: Yes: Peripheral Neuropathy Cardio/Vascular: Yes: CAD, Deep Vein Thrombosis, HTN, Hyperlipdemia, Murmur, Other (PVD) Pulmonary: Yes: Asthma, COPD, Other (lung mets/some cavitary in appearance) Gastrointestinal: Yes: Gastritis Hepatobiliary: No: Cirrhosis Renal/: Yes: Cancer (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). No: Renal Failure Reproductive: Yes: Postmenopausal ...LMP: 11/21/13 Heme/Onc: Yes: Anemia Infectious Disease: Yes: Other (hand infection in 03/2014 with group a strep bacteremia, group b strep bacteremia 08/2014) Psych: Yes: Anxiety, Depression Musculoskeletal: Yes: Other (chronic pain) Endocrine: Yes: Diabetes Mellitus Additional Medical History: neuropathy - Past Surgical History Past Surgical History: Yes: Amputation (right third and fourth toes), Bypass ( left leg), Cholecystectomy, Hernia Repair, Hysterectomy - Alcohol/Substance Use Hx Alcohol Use: No History of Substance Use: reports: None - Smoking History Smoking history: Never smoked Have you smoked in the past 12 months: No Aproximately how many cigarettes per day: 0 - Social History Usual Living Arrangement: With Spouse ADL: Family Assistance History of Recent Travel: No Home Medications - Allergies Allergies/Adverse Reactions: Allergies Allergy/AdvReac Type Severity Reaction Status Date / Time Penicillins Allergy Unknown Hives Verified 10/29/16 09:17 - Home Medications Home Medications: Ambulatory Orders Albuterol Sulfate Inhaler - [Ventolin HFA Inhaler -] 2 inh PO Q6H 08/30/16 Alprazolam [Xanax] 0.25 mg PO Q6H 08/30/16 Aspirin [ASA -] 81 mg PO DAILY 08/30/16 Cholecalciferol (Vitamin D3) [Vitamin D -] 1,000 unit PO Q7D 08/30/16 Furosemide [Lasix] 20 mg PO DAILY 08/30/16 Levothyroxine [Synthroid -] 100 mcg PO DAILY 08/30/16 Megestrol Acetate 80 mg PO BID 08/30/16 Montelukast Na [Singulair -] 10 mg PO HS 08/30/16 Ondansetron [Zofran -] 4 mg PO BID PRN 08/30/16 Oxycodone HCl 15 mg PO TID PRN 08/30/16 Atorvastatin Ca [Lipitor] 10 mg PO HS 10/29/16 Budesonide/Formeterol Fumarate [SYMBICORT 160/4.5mcg -] 1 inh PO BID 10/29/16 Insulin Aspart [Novolog] 10 unit SQ TID 10/29/16 Insulin Glargine,Hum.rec.anlog [Lantus (nf)] 40 units SQ BID 10/29/16 Lisinopril 10 mg PO DAILY 10/29/16 Prednisone [Deltasone -] 20 mg PO BID 10/29/16 Prochlorperazine Maleate 5 mg PO PRN 10/29/16 Ranitidine [Zantac -] 300 mg PO ONCE 10/29/16 Sertraline HCl 25 mg PO DAILY 10/29/16 Family Disease History - Family Disease History Family Disease History: Diabetes: Mother (CVA), Heart Disease: Mother, Other: Mother Review of Systems - Review of Systems Constitutional: reports: Lethargy, Loss of Appetite, Weakness. denies: Fever Eyes: denies: Blurred Vision HENT: denies: Difficult Swallowing Neck: denies: Decreased ROM Cardiovascular: reports: Edema, Shortness of Breath. denies: Chest Pain Respiratory: reports: Cough, Exercise Intolerance, SOB on Exertion. denies: Hemoptysis, Wheezing Gastrointestinal: denies: Abdominal Pain Genitourinary: denies: Burning Breasts: reports: No Symptoms Reported Musculoskeletal: reports: Muscle Weakness Integumentary: reports: No Symptoms Neurological: reports: Confusion, Weakness, Other (lethargy) Endocrine: reports: No Symptoms Physical Exam Vital Sings: Vital Signs Temperature 98.4 F 10/31/16 08:30 Pulse Rate 100 H 10/31/16 08:30 Respiratory Rate 20 10/31/16 08:30 Blood Pressure 136/84 10/31/16 08:30 O2 Sat by Pulse Oximetry (%) 97 10/30/16 23:00 Constitutional: Yes: Anxious Eyes: Yes: EOM Intact HENT: Yes: Normocephalic Neck: Yes: Trachea Midline Cardiovascular: Yes: Regular Rate and Rhythm, S1, S2 Respiratory: Yes: Diminished Gastrointestinal: Yes: Normal Bowel Sounds, Soft, Abdomen, Obese Edema: LLE: 3+, RLE: 3+ Labs: ALL REVIEWED Imaging - Results Chest X-ray: Image Reviewed Cat Scan: Image Reviewed Problem List - Problems (1) Metastasis to lung Code(s): C78.00 - SECONDARY MALIGNANT NEOPLASM OF UNSPECIFIED LUNG (2) Endometrial cancer Code(s): C54.1 - MALIGNANT NEOPLASM OF ENDOMETRIUM (3) Hypothyroidism Code(s): E03.9 - HYPOTHYROIDISM, UNSPECIFIED Qualifiers: Hypothyroidism type: unspecified Qualified Code(s): E03.9 - Hypothyroidism, unspecified (4) Cervical carcinoma Code(s): C53.9 - MALIGNANT NEOPLASM OF CERVIX UTERI, UNSPECIFIED Assessment/Plan LARGE BILATERAL LUNG METS DUE TO CERVICAL CA SOME OF THESE METS ARE CAVITATING PER CT CHEST 08/2016 ADMITTED WITH LETHARGY AND WEAKNESS THOUGHT TO BE DUE TO HYPOTHYROIDISM CHRONIC PREDNISONE AND MEGACE ARE CAUSING IATROGENIC CUSHINGS WILL REPEAT CT CHEST/ABG CONTINUE O2/BRONCHODILATORS CONSIDER REDUCING MEGACE DOSE WILL FOLLOW/THANK YOU Nael JIMENEZ MD
[2016-10-31] MEDS: ENOXAPARIN NA (PORCINE) 80 MG/0.8 ML DISP.SYRIN SQ SCH ×2 (12:12→22:20)
[2016-10-31] MEDS: ALBUTEROL SO4 0.083% IH SOL 2.5 MG/3 ML VIAL.NEB. NEB SCH ×3 (14:10→22:08)
[2016-10-31] MEDS: MONTELUKAST NA 10 MG TABLET PO SCH (22:20)
[2016-11-01] MEDS: NYSTATIN 500,000 UNITS/5 ML SUSPENSION PO SCH ×4 (01:08→17:33)
[2016-11-01] MEDS: ALPRAZolam 0.25 MG TABLET PO PRN ×3 (01:08→18:59)
[2016-11-01] MEDS: ALBUTEROL SO4 0.083% IH SOL 2.5 MG/3 ML VIAL.NEB. NEB PRN ×2 (02:52→10:30)
[2016-11-01] MEDS: LEVOTHYROXINE NA 112 MCG TABLET (FP) PO SCH (06:43)
[2016-11-01] MEDS: INSULIN DETEMIR 100 UNITS/ML MDV SQ SCH ×2 (06:44→21:29)
[2016-11-01] MEDS: INSULIN SLIDING SCALE (NOVOLOG) 1 VIAL SQ SCH ×4 (06:45→21:31)
[2016-11-01] MEDS: oxyCODONE HCL 5 MG TABLET PO PRN ×3 (06:46→20:18)
[2016-11-01] MEDS: ALBUTEROL SO4 0.083% IH SOL 2.5 MG/3 ML VIAL.NEB. NEB SCH ×3 (06:59→22:08)
[2016-11-01 07:34] LABS: BASOPHIL 0.6 % (0-2.0); EOSINOPHIL 0.2 % (0-4.5); MCH 26.6 pg (25.7-33.7); MCHC 33.1 g/dl (32.0-36.0); MEAN CELL VOLUME 80.2 fl (80-96); MEAN PLT VOLUME 7.7 fl (7.5-11.1); NEUTROPHILS 64.4 % (42.8-82.8); PLATELET COUNT 224 K/MM3 (134-434); WHITE BLOOD COUNT 8.6 K/mm3 (4.0-10.0)
[2016-11-01 07:46] LABS: ANION GAP 5 (8-16); CALCIUM 8.5 mg/dL (8.5-10.1); CO2 31 mmol/L (21-32); CREATININE 0.9 mg/dL (0.55-1.02); GLUCOSE,RANDOM 162 mg/dL (74-106)
[2016-11-01] MEDS ORDERED: FUROSEMIDE 40 MG/4 ML INJECTABLE VIAL IVPB SCH ×2 (10:00)
[2016-11-01] MEDS ORDERED: PT OWN MED DRAWER 7, Y5N ONE (10:10)
--- NOTE | 2016-11-01 10:14 | PN ---
Progress Note (short form) - Note Progress Note: PULMONARY Still feels weak, tired. Breathing close to baseline but with cough productive of yellow sputum, wheezing. No chest pain. No fevers but with subjective chills. Last Vital Signs Temp Pulse Resp BP Pulse Ox 98.6 F 102 H 20 150/69 97 11/01/16 06:00 11/01/16 06:00 11/01/16 06:00 11/01/16 06:00 10/31/16 20:42 Gen: cushingoid, mildly tachypneic with speaking Heart: tachycardic, regular Lung: scattered rhonchi, wheezes Abd: soft, nontender Ext: + edema, distal erythema CBC, BMP 11/01/16 06:00 11/01/16 06:00 Active Medications Albuterol Sulfate (Ventolin 0.083% Nebulizer Soln -) 1 amp NEB Q4H PRN PRN Reason: SHORT OF BREATH/WHEEZING Last Admin: 11/01/16 02:52 Dose: 1 amp Albuterol Sulfate (Ventolin 0.083% Nebulizer Soln -) 1 amp NEB TIDR [facility] Last Admin: 11/01/16 06:59 Dose: 1 amp Alprazolam (Xanax -) 0.5 mg PO Q8H PRN PRN Reason: ANXIETY Last Admin: 11/01/16 01:08 Dose: 0.5 mg Enoxaparin Sodium (Lovenox -) 80 mg SQ Q12H [facility] Last Admin: 10/31/16 22:20 Dose: 80 mg Furosemide (Lasix Injection -) 40 mg IVPB DAILY [facility] Stop: 11/04/16 08:00 Insulin Aspart (Novolog Vial Sliding Scale -) 0 vial SQ ACHS [facility] PRN Reason: Protocol Last Admin: 11/01/16 06:45 Dose: 2 units Insulin Detemir (Levemir Vial) 40 units SQ BID@0700,2200 [facility] Last Admin: 11/01/16 06:44 Dose: 40 unit Levothyroxine Sodium (Synthroid -) 112 mcg PO DAILY@0700 [facility] Last Admin: 11/01/16 06:43 Dose: 112 mcg Megestrol Acetate (Megace -) 80 mg PO BID [facility] Last Admin: 10/31/16 22:17 Dose: 80 mg Montelukast Sodium (Singulair -) 10 mg PO HS [facility] Last Admin: 10/31/16 22:20 Dose: 10 mg Multi-Ingredient Lotion (Eucerin (Small Jar) -) 1 applic TP DAILY [facility] Nystatin (Nystatin Oral Suspension -) 500,000 units PO Q6HPO [facility] Last Admin: 11/01/16 06:44 Dose: 500,000 units Ondansetron HCl (Zofran Injection) 4 mg IVPUSH Q6H PRN PRN Reason: NAUSEA AND/OR VOMITING Last Admin: 10/30/16 20:02 Dose: 4 mg Oxycodone HCl (Roxicodone -) 10 mg PO Q6H PRN PRN Reason: PAIN Last Admin: 11/01/16 06:46 Dose: 10 mg Prednisone (Deltasone -) 10 mg PO DAILY [facility] Last Admin: 10/31/16 10:39 Dose: Not Given A/P Metastatic Cervical Cancer with multiple lung mets Asthma/COPD CAD DM h/o DVT - continue lasix - monitor urine output, creatinine - inhaled bronchodilators - will add asmanex per patient's request - on chronic prednisone, megace - singulair - continue LMWH - O2 to keep SpO2 >90%
[2016-11-01] MEDS: predniSONE 5 MG TABLET (UD) PO SCH (10:15)
[2016-11-01] MEDS: ENOXAPARIN NA (PORCINE) 80 MG/0.8 ML DISP.SYRIN SQ SCH ×2 (10:17→23:10)
[2016-11-01] MEDS: MEGESTROL ACETATE 40 MG TABLET PO SCH ×2 (10:17→21:30)
[2016-11-01] MEDS: FUROSEMIDE 40 MG/4 ML INJECTABLE VIAL IVPUSH SCH (12:09)
[2016-11-01] MEDS ORDERED: INSULIN (NOVOLOG) ASPART 100 UNITS/ML 10ML VIAL ONE ×3 (12:10→21:11)
[2016-11-01] MEDS: MOMETASONE FUROATE 220 MCG/IH INHALER IH SCH ×2 (12:15→21:28)
[2016-11-01] MEDS: MINERAL OIL/PETROLAT/WATER TOPICAL CREAM 113 GM JAR TP SCH (12:16)
--- NOTE | 2016-11-01 15:49 | PN ---
Physical Exam: SUBJECTIVE: Patient seen and examined at bedside. No acute events overnight. Pt feels much better today, but symptoms have not resolved altogether. No other complaints at this time. Pt denies fever, chills, headache, cp, sob, abd pain, nausea, vomiting, diarrhea, dysuria. OBJECTIVE: Vital Signs Period Temp Pulse Resp BP Sys/Encarnacion Pulse Ox Last 24 Hr 98.5 F-99.8 F 83-108 18-20 132-157/57-75 97-97 GENERAL: Cushingoid appearance. The patient is awake, alert, and fully oriented , in no acute distress. HEAD: Normal with no signs of trauma. EYES: sclera anicteric, conjunctiva clear. No ptosis. ENT: oropharynx clear without exudates, moist mucous membranes. NECK: Trachea midline, full range of motion, supple. LUNGS: Breath sounds equal, clear to auscultation bilaterally, Diffuse wheezing , bibasilar crackles, no accessory muscle use. HEART: Regular rate and rhythm, normal S1, S2 without murmur, rub or gallop. ABDOMEN: Soft, nontender, nondistended, normoactive bowel sounds, no guarding, no rebound, no hepatosplenomegaly, no masses. 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 small dime-sized stage I ulcer under left halux NEUROLOGICAL: Cranial nerves II through XII grossly intact. Normal speech, gait not observed. PSYCH: Normal mood, normal affect. SKIN: Warm, dry, normal turgor, no rashes or lesions noted Laboratory Results - last 24 hr 10/31/16 10/31/16 11/01/16 16:39 21:24 05:40 WBC RBC Hgb Hct MCV MCH MCHC RDW Plt Count MPV Neutrophils % Lymphocytes % Monocytes % Eosinophils % Basophils % Sodium Potassium Chloride Carbon Dioxide Anion Gap BUN Creatinine POC Glucometer 249 305 192 Random Glucose Calcium 11/01/16 11/01/16 11/01/16 06:00 06:00 12:01 WBC 8.6 RBC 3.46 L Hgb 9.2 L Hct 27.8 L MCV 80.2 MCH 26.6 MCHC 33.1 RDW 18.0 H Plt Count 224 MPV 7.7 Neutrophils % 64.4 Lymphocytes % 28.6 Monocytes % 6.2 Eosinophils % 0.2 Basophils % 0.6 Sodium 141 Potassium 4.4 Chloride 105 Carbon Dioxide 31 Anion Gap 5 L BUN 7 D Creatinine 0.9 POC Glucometer 199 Random Glucose 162 H D Calcium 8.5 Active Medications Generic Name Dose Route Start Last Admin Trade Name Freq PRN Reason Stop Dose Admin Albuterol Sulfate 1 amp 10/29/16 14:18 11/01/16 10:30 Ventolin 0.083% Nebulizer Soln - NEB 1 amp Q4H PRN Administration SHORT OF BREATH/WHEEZING Albuterol Sulfate 1 amp 10/31/16 14:00 11/01/16 13:40 Ventolin 0.083% Nebulizer Soln - NEB 1 amp TIDR RAFA Administration Alprazolam 0.5 mg 10/29/16 14:26 11/01/16 10:14 Xanax - PO 0.5 mg Q8H PRN Administration ANXIETY Enoxaparin Sodium 80 mg 10/31/16 10:45 11/01/16 10:17 Lovenox - SQ 80 mg Q12H RAFA Administration Furosemide 40 mg 11/01/16 11:00 11/01/16 12:09 Lasix Injection - IVPUSH Not Given DAILY RAFA Insulin Aspart 0 vial 10/29/16 16:30 11/01/16 12:19 Novolog Vial Sliding Scale - SQ 2 units ACHS RAFA Administration Protocol Insulin Detemir 40 units 10/29/16 22:00 11/01/16 06:44 Levemir Vial SQ 40 unit BID@0700,2200 RAFA Administration Levothyroxine Sodium 112 mcg 10/31/16 07:00 11/01/16 06:43 Synthroid - PO 112 mcg DAILY@0700 RAFA Administration Megestrol Acetate 80 mg 10/29/16 22:00 11/01/16 10:17 Megace - PO 80 mg BID RAFA Administration Mometasone Furoate 1 puff 11/01/16 11:00 11/01/16 12:15 Asmanex 220mcg - IH 1 puff BID RAFA Administration Montelukast Sodium 10 mg 10/29/16 22:00 10/31/16 22:20 Singulair - PO 10 mg HS RAFA Administration Multi-Ingredient Lotion 1 applic 11/01/16 11:00 11/01/16 12:16 Eucerin (Small Jar) - TP 1 applic DAILY RAFA Administration Nystatin 500,000 units 10/29/16 18:00 11/01/16 12:19 Nystatin Oral Suspension - PO 500,000 units Q6HPO RAFA Administration Ondansetron HCl 4 mg 10/29/16 14:57 10/30/16 20:02 Zofran Injection IVPUSH 4 mg Q6H PRN Administration NAUSEA AND/OR VOMITING Oxycodone HCl 10 mg 10/29/16 14:25 11/01/16 13:17 Roxicodone - PO 10 mg Q6H PRN Administration PAIN Prednisone 10 mg 10/30/16 10:00 11/01/16 10:15 Deltasone - PO 10 mg DAILY RAFA Administration ASSESSMENT/PLAN: This is a 66 yo F with PMH of cervical CA w lung mets, on daily prednisone (dx 2008, sp IV chemo 5 yrs ago, currently on PO chemo), asthma, hypothyroidism, CAD , IDDM, DVT (left leg, off lovenox and ASA x 1 p/d cataract sho), who presents per PCP request due to lethargy and malaise x 2 w with worsening over past 4 days. #volume overload: improving -hold IVF -increase Lasix to 40mg IV push daily X3d -CXR: mass like opacities, hilar prominence. No infiltrate mentioned. #Asthma/COPD -Cont O2 -Albuterol Neb TID RAFA -Albuterol Neb Q4 PRN -Pulm (Dr. Souza) recs appreciated -Pt requested an inhaler #Lethargy/malaise - TSH: 7.17, Free T3: 1.9, Free T4: 0.93 -r/o sellar mass, this will not show up on CT and needs MRI to confirm: f/u IGF- 1, prolactin Acute on chronic microcytic anemia: likely dilutional: STABLE -Hgb drop from 11.9 to 10.3 in 1 mo. Now stable at 9.2 -f/u Fe studies, could be due to chronic disease; f/u stool occult blood Relative hypotension: RESOLVED -baseline BP 130-140 systolic -vol depletion vs endocrine causes SARAH: RESOLVED -BUN/Creat 12/0.9 -likely prerental, will IV hydrate and trend creat IDDM -BGM ACHS, -Sliding scale -levemir 40 bid #history DVT: -Lovenox 80mg SubQ Q12H CAD -hold asa HLD -pharmacy does not confirm any statin therapy Stage IV cervical CA, lung mets -Continue prednisone 10 d, albuterol nebs, singulair -CXR stable, slight increse in nodule size -continue PO chemo regimen Chronic back pain -oxycodone 10 tid prn FEN NS@100 lytes repleted: 1gm Mg diabetic na restricted diet hold a/c, zantac Dispo: admit to med/surg Meds confirmed with pharmacy Documetnation requested from [facility] where patient had chemo in the past Visit type - Emergency Visit Emergency Visit: Yes ED Registration Date: 10/31/16 Care time: The patient presented to the Emergency Department on the above date and was hospitalized for further evaluation of their emergent condition. - New Patient This patient is new to me today: No - Critical Care Critical Care patient: No - Discharge Referral Referred to [facility] Med P.C.: No
--- NOTE | 2016-11-01 16:16 | PN ---
Teaching Attending Note Name of Resident: Mark Walter ATTENDING PHYSICIAN STATEMENT I saw and evaluated the patient. I reviewed the resident's note and discussed the case with the resident. I agree with the resident's findings and plan as documented. SUBJECTIVE: Patient is feeling better but continues to wheeze , shortness of breath on exertion. No nausea or vomiting, no headache. OBJECTIVE: Vital Signs Temperature 99.8 F H 11/01/16 13:23 Pulse Rate 107 H 11/01/16 13:23 Respiratory Rate 18 11/01/16 13:23 Blood Pressure 132/57 11/01/16 13:23 O2 Sat by Pulse Oximetry (%) 97 11/01/16 10:05 CBCD WBC 8.6 K/mm3 (4.0-10.0) 11/01/16 06:00 RBC 3.46 M/mm3 (3.60-5.2) L 11/01/16 06:00 Hgb 9.2 GM/dL (10.7-15.3) L 11/01/16 06:00 Hct 27.8 % (32.4-45.2) L 11/01/16 06:00 MCV 80.2 fl (80-96) 11/01/16 06:00 MCHC 33.1 g/dl (32.0-36.0) 11/01/16 06:00 RDW 18.0 % (11.6-15.6) H 11/01/16 06:00 Plt Count 224 K/MM3 (134-434) 11/01/16 06:00 MPV 7.7 fl (7.5-11.1) 11/01/16 06:00 CMP Sodium 141 mmol/L (136-145) 11/01/16 06:00 Potassium 4.4 mmol/L (3.5-5.1) 11/01/16 06:00 Chloride 105 mmol/L (98-107) 11/01/16 06:00 Carbon Dioxide 31 mmol/L (21-32) 11/01/16 06:00 Anion Gap 5 (8-16) L 11/01/16 06:00 BUN 7 mg/dL (7-18) D 11/01/16 06:00 Creatinine 0.9 mg/dL (0.55-1.02) 11/01/16 06:00 Creat Clearance w eGFR 41.11 (>60) 10/29/16 10:23 Random Glucose 162 mg/dL (74-106) H D 11/01/16 06:00 Calcium 8.5 mg/dL (8.5-10.1) 11/01/16 06:00 Total Bilirubin 0.5 mg/dL (0.2-1.0) D 10/29/16 10:23 AST 34 U/L (15-37) D 10/29/16 10:23 ALT 35 U/L (12-78) D 10/29/16 10:23 Alkaline Phosphatase 97 U/L (45-117) 10/29/16 10:23 Total Protein 6.1 g/dl (6.4-8.2) L 10/29/16 10:23 Albumin 2.7 g/dl (3.4-5.0) L 10/29/16 10:23 CARDIAC ENZYMES Troponin I < 0.02 ng/ml (0.00-0.05) 10/29/16 10:23 Current Medications Generic Name Dose Route Start Last Admin Trade Name Freq PRN Reason Stop Dose Admin Albuterol Sulfate 1 amp 10/29/16 14:18 11/01/16 10:30 Ventolin 0.083% Nebulizer Soln - NEB 1 amp Q4H PRN Administration SHORT OF BREATH/WHEEZING Albuterol Sulfate 1 amp 10/31/16 14:00 11/01/16 13:40 Ventolin 0.083% Nebulizer Soln - NEB 1 amp TIDR RAFA Administration Alprazolam 0.5 mg 10/29/16 14:26 11/01/16 10:14 Xanax - PO 0.5 mg Q8H PRN Administration ANXIETY Enoxaparin Sodium 80 mg 10/31/16 10:45 11/01/16 10:17 Lovenox - SQ 80 mg Q12H RAFA Administration Furosemide 40 mg 11/01/16 11:00 11/01/16 12:09 Lasix Injection - IVPUSH Not Given DAILY RAFA Insulin Aspart 0 vial 10/29/16 16:30 11/01/16 12:19 Novolog Vial Sliding Scale - SQ 2 units ACHS RAFA Administration Protocol Insulin Detemir 40 units 10/29/16 22:00 11/01/16 06:44 Levemir Vial SQ 40 unit BID@0700,2200 RAFA Administration Levothyroxine Sodium 112 mcg 10/31/16 07:00 11/01/16 06:43 Synthroid - PO 112 mcg DAILY@0700 RAFA Administration Megestrol Acetate 80 mg 10/29/16 22:00 11/01/16 10:17 Megace - PO 80 mg BID RAFA Administration Mometasone Furoate 1 puff 11/01/16 11:00 11/01/16 12:15 Asmanex 220mcg - IH 1 puff BID RAFA Administration Montelukast Sodium 10 mg 10/29/16 22:00 10/31/16 22:20 Singulair - PO 10 mg HS RAFA Administration Multi-Ingredient Lotion 1 applic 11/01/16 11:00 11/01/16 12:16 Eucerin (Small Jar) - TP 1 applic DAILY RAFA Administration Nystatin 500,000 units 10/29/16 18:00 11/01/16 12:19 Nystatin Oral Suspension - PO 500,000 units Q6HPO RAFA Administration Ondansetron HCl 4 mg 10/29/16 14:57 10/30/16 20:02 Zofran Injection IVPUSH 4 mg Q6H PRN Administration NAUSEA AND/OR VOMITING Oxycodone HCl 10 mg 10/29/16 14:25 11/01/16 13:17 Roxicodone - PO 10 mg Q6H PRN Administration PAIN Prednisone 10 mg 10/30/16 10:00 11/01/16 10:15 Deltasone - PO 10 mg DAILY RAFA Administration Home Medications Medication Instructions Recorded Albuterol Sulfate Inhaler - 2 inh PO Q6H 08/30/16 [Ventolin HFA Inhaler -] Alprazolam [Xanax] 0.25 mg PO Q6H 08/30/16 Aspirin [ASA -] 81 mg PO DAILY 08/30/16 Cholecalciferol (Vitamin D3) 1,000 unit PO Q7D 08/30/16 [Vitamin D -] Furosemide [Lasix] 20 mg PO DAILY 08/30/16 Levothyroxine [Synthroid -] 100 mcg PO DAILY 08/30/16 Megestrol Acetate 80 mg PO BID 08/30/16 Montelukast Na [Singulair -] 10 mg PO HS 08/30/16 Ondansetron [Zofran -] 4 mg PO BID PRN 08/30/16 Oxycodone HCl 15 mg PO TID PRN 08/30/16 Atorvastatin Ca [Lipitor] 10 mg PO HS 10/29/16 Budesonide/Formeterol Fumarate 1 inh PO BID 10/29/16 [SYMBICORT 160/4.5mcg -] Insulin Aspart [Novolog] 10 unit SQ TID 10/29/16 Insulin Glargine,Hum.rec.anlog 40 units SQ BID 10/29/16 [Lantus (nf)] Lisinopril 10 mg PO DAILY 10/29/16 Prednisone [Deltasone -] 20 mg PO BID 10/29/16 Prochlorperazine Maleate 5 mg PO PRN 10/29/16 Ranitidine [Zantac -] 300 mg PO ONCE 10/29/16 Sertraline HCl 25 mg PO DAILY 10/29/16 PE: Chest: Expiratory wheezing BL ASSESSMENT AND PLAN: 66yo F wtih PMH cervical cancer with lung mets on chemo, hypothyroid, CAD, DM and DVT presented to the ER with lethargy for several months. # Acute exacerbation of Asthma on nebulizer treatments, on po Prednisone 10mg continue , Singulair continue ,pulmonary consult appreciated # Acute edema of lower extremities , patient develops on and off phelebitis of LEs due to swelling, will monitor for now CBC, will check whether markings are getting larger. will discontinue IVF, will place her on IV diuretic 40mg daily for now. 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 cortisol level sent. cont steroid at this time. # s/p ramon- resolved # normocytic anemia- no signs of bleeding. likely dilutional component. now stable # Hypomagnesemia/ hypophosphotemia repleted. DVT Px: Heparin sq
[2016-11-01] MEDS: MONTELUKAST NA 10 MG TABLET PO SCH (21:31)
[2016-11-02] MEDS: NYSTATIN 500,000 UNITS/5 ML SUSPENSION PO SCH ×4 (00:32→17:14)
[2016-11-02] MEDS: ALBUTEROL SO4 0.083% IH SOL 2.5 MG/3 ML VIAL.NEB. NEB PRN ×2 (01:59→11:17)
[2016-11-02] MEDS: ALPRAZolam 0.25 MG TABLET PO PRN ×3 (03:27→20:02)
[2016-11-02] MEDS: oxyCODONE HCL 5 MG TABLET PO PRN ×3 (03:27→20:01)
[2016-11-02] MEDS: LEVOTHYROXINE NA 112 MCG TABLET (FP) PO SCH (06:19)
[2016-11-02] MEDS: INSULIN SLIDING SCALE (NOVOLOG) 1 VIAL SQ SCH ×4 (06:19→21:57)
[2016-11-02] MEDS: INSULIN DETEMIR 100 UNITS/ML MDV SQ SCH ×2 (06:19→21:58)
[2016-11-02] MEDS ORDERED: INSULIN DETEMIR 100 UNITS/ML MDV SQ ONE (06:34)
[2016-11-02] MEDS ORDERED: INSULIN (NOVOLOG) ASPART 100 UNITS/ML 10ML VIAL ONE (06:34)
[2016-11-02] MEDS: ALBUTEROL SO4 0.083% IH SOL 2.5 MG/3 ML VIAL.NEB. NEB SCH ×3 (06:40→21:48)
--- NOTE | 2016-11-02 06:41 | PN ---
Physical Exam: SUBJECTIVE: Patient seen and examined at bedside. Pt states she felt well this morning. States she still has difficulty breathing, cough, and hip pain, but that she is generally improving each day. Pt states she would like more pain medication and cough medication as she used to get from her oncologist outside the hospital. OBJECTIVE: Vital Signs Period Temp Pulse Resp BP Sys/Encarnacion Pulse Ox Last 24 Hr 97.6 F-99.8 F 83-108 18-20 132-157/57-86 97-98 GENERAL: cushingoid The patient is awake, alert, and fully oriented, in no acute distress. HEAD: Normal with no signs of trauma. EYES: sclera anicteric, conjunctiva clear. No ptosis. ENT:oropharynx clear without exudates, moist mucous membranes. NECK: no LAD, Trachea midline, full range of motion, supple. LUNGS: Breath sounds equal, clear to auscultation bilaterally, diffuse b/l wheezes, no crackles, no accessory muscle use. HEART: Regular rate and rhythm, S1, S2 without murmur, rub or gallop. ABDOMEN: Soft, nontender, nondistended, normoactive bowel sounds, no guarding, no rebound, no hepatosplenomegaly, no masses. EXTREMITIES: 2+ pulses, warm, well-perfused, 2+ pitting edema: improving. Cellulitic changes NEUROLOGICAL: Cranial nerves II through XII grossly intact. Normal speech, gait not observed. PSYCH: Normal mood, normal affect. SKIN: Warm, dry, normal turgor, no rashes or lesions noted Laboratory Results - last 24 hr 11/01/16 11/01/16 11/01/16 06:00 06:00 12:01 WBC 8.6 RBC 3.46 L Hgb 9.2 L Hct 27.8 L MCV 80.2 MCH 26.6 MCHC 33.1 RDW 18.0 H Plt Count 224 MPV 7.7 Neutrophils % 64.4 Lymphocytes % 28.6 Monocytes % 6.2 Eosinophils % 0.2 Basophils % 0.6 Sodium 141 Potassium 4.4 Chloride 105 Carbon Dioxide 31 Anion Gap 5 L BUN 7 D Creatinine 0.9 POC Glucometer 199 Random Glucose 162 H D Calcium 8.5 11/01/16 11/01/16 17:11 21:03 WBC RBC Hgb Hct MCV MCH MCHC RDW Plt Count MPV Neutrophils % Lymphocytes % Monocytes % Eosinophils % Basophils % Sodium Potassium Chloride Carbon Dioxide Anion Gap BUN Creatinine POC Glucometer 370 277 Random Glucose Calcium Active Medications Generic Name Dose Route Start Last Admin Trade Name Lisset PRN Reason Stop Dose Admin Albuterol Sulfate 1 amp 10/29/16 14:18 11/02/16 01:59 Ventolin 0.083% Nebulizer Soln - NEB 1 amp Q4H PRN Administration SHORT OF BREATH/WHEEZING Albuterol Sulfate 1 amp 10/31/16 14:00 11/01/16 22:08 Ventolin 0.083% Nebulizer Soln - NEB 1 amp TIDR RAFA Administration Alprazolam 0.5 mg 10/29/16 14:26 11/02/16 03:27 Xanax - PO 0.5 mg Q8H PRN Administration ANXIETY Enoxaparin Sodium 80 mg 10/31/16 10:45 11/01/16 23:10 Lovenox - SQ 80 mg Q12H RAFA Administration Furosemide 40 mg 11/01/16 11:00 11/01/16 12:09 Lasix Injection - IVPUSH Not Given DAILY RAFA Insulin Aspart 0 vial 10/29/16 16:30 11/02/16 06:19 Novolog Vial Sliding Scale - SQ 2 units ACHS RAFA Administration Protocol Insulin Detemir 40 units 10/29/16 22:00 11/02/16 06:19 Levemir Vial SQ 40 unit BID@0700,2200 RAFA Administration Levothyroxine Sodium 112 mcg 10/31/16 07:00 11/02/16 06:19 Synthroid - PO 112 mcg DAILY@0700 RAFA Administration Megestrol Acetate 80 mg 10/29/16 22:00 11/01/16 21:30 Megace - PO 80 mg BID RAFA Administration Mometasone Furoate 1 puff 11/01/16 11:00 11/01/16 21:28 Asmanex 220mcg - IH 1 puff BID RAFA Administration Montelukast Sodium 10 mg 10/29/16 22:00 11/01/16 21:31 Singulair - PO 10 mg HS RAFA Administration Multi-Ingredient Lotion 1 applic 11/01/16 11:00 11/01/16 12:16 Eucerin (Small Jar) - TP 1 applic DAILY RAFA Administration Nystatin 500,000 units 10/29/16 18:00 11/02/16 06:18 Nystatin Oral Suspension - PO 500,000 units Q6HPO RAFA Administration Ondansetron HCl 4 mg 10/29/16 14:57 10/30/16 20:02 Zofran Injection IVPUSH 4 mg Q6H PRN Administration NAUSEA AND/OR VOMITING Oxycodone HCl 10 mg 10/29/16 14:25 11/02/16 03:27 Roxicodone - PO 10 mg Q6H PRN Administration PAIN Prednisone 10 mg 10/30/16 10:00 11/01/16 10:15 Deltasone - PO 10 mg DAILY RAFA Administration ASSESSMENT/PLAN: This is a 66 yo F with PMH of cervical CA w lung mets, on daily prednisone (dx 2008, sp IV chemo 5 yrs ago, currently on PO chemo), asthma, hypothyroidism, CAD , IDDM, DVT (left leg, off lovenox and ASA x 1 p/d cataract sho), who presents per PCP request due to lethargy and malaise x 2 w with worsening over past 4 days. #Cellulitis -Cephalexin 500mg PO Q6H #volume overload: improving -hold IVF -increase Lasix to 40mg IV push daily X3d -CXR: mass like opacities, hilar prominence. No infiltrate mentioned. #Asthma/COPD: improving -Cont O2 -Albuterol Neb TID RAFA -Albuterol Neb Q4 PRN -Pulm (Dr. Souza) recs appreciated -Pt requested an inhaler #Lethargy/malaise - TSH: 7.17, Free T3: 1.9, Free T4: 0.93 -r/o sellar mass, this will not show up on CT and needs MRI to confirm: f/u IGF- 1, prolactin #Acute on chronic microcytic anemia: likely dilutional: STABLE -Hgb drop from 11.9 to 10.3 in 1 mo. Now stable at 9.2 -f/u Fe studies, could be due to chronic disease; f/u stool occult blood #Relative hypotension: RESOLVED -baseline BP 130-140 systolic -vol depletion vs endocrine causes #SARAH: RESOLVED -BUN/Creat 12/0.9 -likely prerental, will IV hydrate and trend creat #IDDM -BGM ACHS, -Sliding scale -levemir 40 bid #history DVT: -Lovenox 80mg SubQ Q12H #CAD -hold asa #HLD -pharmacy does not confirm any statin therapy #Stage IV cervical CA, lung mets -Continue prednisone 10 d, albuterol nebs, singulair -CXR stable, slight increse in nodule size -continue PO chemo regimen #Chronic back pain -oxycodone 10 tid prn #FEN NS@100 lytes repleted: 1gm Mg diabetic na restricted diet hold a/c, zantac #PPx -DVT - pt on elequis -GI - Zantac -Deconditioning - PT #Dispo: admit to med/surg Meds confirmed with pharmacy Documetnation requested from [facility] where patient had chemo in the past Visit type - Emergency Visit Emergency Visit: No - New Patient This patient is new to me today: No - Critical Care Critical Care patient: No - Discharge Referral Referred to [facility] Med P.C.: No
[2016-11-02 07:59] LABS: MCH 26.5 pg (25.7-33.7); MCHC 32.8 g/dl (32.0-36.0); MEAN CELL VOLUME 80.9 fl (80-96); MEAN PLT VOLUME 7.7 fl (7.5-11.1); PLATELET COUNT 245 K/MM3 (134-434); WHITE BLOOD COUNT 9.1 K/mm3 (4.0-10.0)
[2016-11-02 11:05] LABS: PLATELET ESTIMATE ADEQUATE (NORMAL)
[2016-11-02] MEDS: predniSONE 5 MG TABLET (UD) PO SCH (11:35)
[2016-11-02] MEDS: FUROSEMIDE 40 MG/4 ML INJECTABLE VIAL IVPUSH SCH (11:36)
[2016-11-02] MEDS: MOMETASONE FUROATE 220 MCG/IH INHALER IH SCH ×2 (11:36→22:06)
[2016-11-02] MEDS: MINERAL OIL/PETROLAT/WATER TOPICAL CREAM 113 GM JAR TP SCH (11:36)
[2016-11-02] MEDS: ENOXAPARIN NA (PORCINE) 80 MG/0.8 ML DISP.SYRIN SQ SCH ×2 (11:37→22:07)
[2016-11-02] MEDS: MEGESTROL ACETATE 40 MG TABLET PO SCH ×2 (11:37→22:06)
--- NOTE | 2016-11-02 13:57 | PN ---
Progress Note (short form) - Note Progress Note: PULMONARY RESTING COMFORTABLY VSS/AFEBRILE NO OVERALL CHANGE IN EXAM LABS/MEDS/NOTES/IMAGING REVIEWED LARGE BILATERAL LUNG METS DUE TO CERVICAL CA SOME OF THESE METS ARE CAVITATING PER CT CHEST 08/2016 ADMITTED WITH LETHARGY AND WEAKNESS THOUGHT TO BE DUE TO HYPOTHYROIDISM CHRONIC PREDNISONE AND MEGACE ARE CAUSING IATROGENIC CUSHINGS CONTINUE O2/BRONCHODILATORS CONSIDER REDUCING MEGACE DOSE Nael JIMENEZ MD Problem List - Problems (1) Metastasis to lung Code(s): C78.00 - SECONDARY MALIGNANT NEOPLASM OF UNSPECIFIED LUNG (2) Endometrial cancer Code(s): C54.1 - MALIGNANT NEOPLASM OF ENDOMETRIUM (3) Hypothyroidism Code(s): E03.9 - HYPOTHYROIDISM, UNSPECIFIED Qualifiers: Hypothyroidism type: unspecified Qualified Code(s): E03.9 - Hypothyroidism, unspecified (4) Cervical carcinoma Code(s): C53.9 - MALIGNANT NEOPLASM OF CERVIX UTERI, UNSPECIFIED
[2016-11-02] MEDS: CEPHALEXIN MONOHYDRATE 500 MG CAPSULE (UD) PO SCH ×2 (16:52→17:10)
--- NOTE | 2016-11-02 19:15 | PN ---
Teaching Attending Note Name of Resident: Mark Walter ATTENDING PHYSICIAN STATEMENT I saw and evaluated the patient. I reviewed the resident's note and discussed the case with the resident. I agree with the resident's findings and plan as documented. SUBJECTIVE: Continues to wheeze but feels better today. OBJECTIVE: Vital Signs Temperature 98.7 F 11/02/16 17:05 Pulse Rate 95 H 11/02/16 17:05 Respiratory Rate 18 11/02/16 17:05 Blood Pressure 135/70 11/02/16 17:05 O2 Sat by Pulse Oximetry (%) 98 11/02/16 11:16 CBCD WBC 9.1 K/mm3 (4.0-10.0) 11/02/16 06:00 RBC 3.68 M/mm3 (3.60-5.2) 11/02/16 06:00 Hgb 9.8 GM/dL (10.7-15.3) L 11/02/16 06:00 Hct 29.8 % (32.4-45.2) L 11/02/16 06:00 MCV 80.9 fl (80-96) 11/02/16 06:00 MCHC 32.8 g/dl (32.0-36.0) 11/02/16 06:00 RDW 19.0 % (11.6-15.6) H 11/02/16 06:00 Plt Count 245 K/MM3 (134-434) 11/02/16 06:00 MPV 7.7 fl (7.5-11.1) 11/02/16 06:00 CMP Sodium 141 mmol/L (136-145) 11/01/16 06:00 Potassium 4.4 mmol/L (3.5-5.1) 11/01/16 06:00 Chloride 105 mmol/L (98-107) 11/01/16 06:00 Carbon Dioxide 31 mmol/L (21-32) 11/01/16 06:00 Anion Gap 5 (8-16) L 11/01/16 06:00 BUN 7 mg/dL (7-18) D 11/01/16 06:00 Creatinine 0.9 mg/dL (0.55-1.02) 11/01/16 06:00 Creat Clearance w eGFR 41.11 (>60) 10/29/16 10:23 Random Glucose 162 mg/dL (74-106) H D 11/01/16 06:00 Calcium 8.5 mg/dL (8.5-10.1) 11/01/16 06:00 Total Bilirubin 0.5 mg/dL (0.2-1.0) D 10/29/16 10:23 AST 34 U/L (15-37) D 10/29/16 10:23 ALT 35 U/L (12-78) D 10/29/16 10:23 Alkaline Phosphatase 97 U/L (45-117) 10/29/16 10:23 Total Protein 6.1 g/dl (6.4-8.2) L 10/29/16 10:23 Albumin 2.7 g/dl (3.4-5.0) L 10/29/16 10:23 CARDIAC ENZYMES Troponin I < 0.02 ng/ml (0.00-0.05) 10/29/16 10:23 Current Medications Generic Name Dose Route Start Last Admin Trade Name Freq PRN Reason Stop Dose Admin Albuterol Sulfate 1 amp 10/29/16 14:18 11/02/16 11:17 Ventolin 0.083% Nebulizer Soln - NEB 1 amp Q4H PRN Administration SHORT OF BREATH/WHEEZING Albuterol Sulfate 1 amp 10/31/16 14:00 11/02/16 14:15 Ventolin 0.083% Nebulizer Soln - NEB 1 amp TIDR RAFA Administration Alprazolam 0.5 mg 10/29/16 14:26 11/02/16 11:35 Xanax - PO 0.5 mg Q8H PRN Administration ANXIETY Cephalexin HCl 500 mg 11/02/16 12:00 11/02/16 17:10 Keflex - PO 500 mg Q6HPO RAFA Administration Enoxaparin Sodium 80 mg 10/31/16 10:45 11/02/16 11:37 Lovenox - SQ 80 mg Q12H RAFA Administration Furosemide 40 mg 11/01/16 11:00 11/02/16 11:36 Lasix Injection - IVPUSH 40 mg DAILY RAFA Administration Guaifenesin/Codeine Phosphate 5 ml 11/02/16 18:52 Robitussin Ac - PO HS PRN COUGH Insulin Aspart 0 vial 10/29/16 16:30 11/02/16 17:13 Novolog Vial Sliding Scale - SQ 10 units ACHS RAFA Administration Protocol Insulin Detemir 40 units 10/29/16 22:00 11/02/16 06:19 Levemir Vial SQ 40 unit BID@0700,2200 RAFA Administration Levothyroxine Sodium 112 mcg 10/31/16 07:00 11/02/16 06:19 Synthroid - PO 112 mcg DAILY@0700 RAFA Administration Megestrol Acetate 80 mg 10/29/16 22:00 11/02/16 11:37 Megace - PO 80 mg BID RAFA Administration Mometasone Furoate 1 puff 11/01/16 11:00 11/02/16 11:36 Asmanex 220mcg - IH 1 puff BID RAFA Administration Montelukast Sodium 10 mg 10/29/16 22:00 11/01/16 21:31 Singulair - PO 10 mg HS RAFA Administration Multi-Ingredient Lotion 1 applic 11/01/16 11:00 11/02/16 11:36 Eucerin (Small Jar) - TP 1 applic DAILY RAFA Administration Nystatin 500,000 units 10/29/16 18:00 11/02/16 17:14 Nystatin Oral Suspension - PO 500,000 units Q6HPO RAFA Administration Ondansetron HCl 4 mg 10/29/16 14:57 10/30/16 20:02 Zofran Injection IVPUSH 4 mg Q6H PRN Administration NAUSEA AND/OR VOMITING Oxycodone HCl 10 mg 10/29/16 14:25 11/02/16 11:35 Roxicodone - PO 10 mg Q6H PRN Administration PAIN Prednisone 10 mg 10/30/16 10:00 11/02/16 11:35 Deltasone - PO 10 mg DAILY RAFA Administration Home Medications Medication Instructions Recorded Albuterol Sulfate Inhaler - 2 inh PO Q6H 08/30/16 [Ventolin HFA Inhaler -] Alprazolam [Xanax] 0.25 mg PO Q6H 08/30/16 Aspirin [ASA -] 81 mg PO DAILY 08/30/16 Cholecalciferol (Vitamin D3) 1,000 unit PO Q7D 08/30/16 [Vitamin D -] Furosemide [Lasix] 20 mg PO DAILY 08/30/16 Levothyroxine [Synthroid -] 100 mcg PO DAILY 08/30/16 Megestrol Acetate 80 mg PO BID 08/30/16 Montelukast Na [Singulair -] 10 mg PO HS 08/30/16 Ondansetron [Zofran -] 4 mg PO BID PRN 08/30/16 Oxycodone HCl 15 mg PO TID PRN 08/30/16 Atorvastatin Ca [Lipitor] 10 mg PO HS 10/29/16 Budesonide/Formeterol Fumarate 1 inh PO BID 10/29/16 [SYMBICORT 160/4.5mcg -] Insulin Aspart [Novolog] 10 unit SQ TID 10/29/16 Insulin Glargine,Hum.rec.anlog 40 units SQ BID 10/29/16 [Lantus (nf)] Lisinopril 10 mg PO DAILY 10/29/16 Prednisone [Deltasone -] 20 mg PO BID 10/29/16 Prochlorperazine Maleate 5 mg PO PRN 10/29/16 Ranitidine [Zantac -] 300 mg PO ONCE 10/29/16 Sertraline HCl 25 mg PO DAILY 10/29/16 Microbiology 10/29/16 10:23 Urine - Urine Clean Catch Urine Culture - Final NO GROWTH OBTAINED GEN:cushingoid appearance PE: Chest: Expiratory wheezing BL ASSESSMENT AND PLAN: 66yo F wtih PMH cervical cancer with lung mets on chemo, hypothyroid, CAD, DM and DVT presented to the ER with lethargy for several months. # Acute Cellulitis of lower extremties L>R, started the patient on Cephalexin 500mg PO Q6H # Chronic Back pain on Oxycodone 10mg q6h. # Anxiety disorder on Xanax at home prn will continue. #Stage IV cervical CA, with lung mets was on RTX therapy. # Acute exacerbation of Asthma on nebulizer treatments will continue, on po Prednisone 10mg continue , Singulair continue ,pulmonary consult appreciated # Acute edema of lower extremities , patient develops on and off phelebitis of LEs due to swelling, will continue to monitor for now CBC, will discontinue IVF, will place her on IV diuretic 40mg daily for now. 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 # s/p ramon- resolved #IDDM sliding scale with coverage, levemir 40 bid # normocytic anemia- no signs of bleeding. likely dilutional component. now stable # Hypomagnesemia/ hypophosphotemia repleted. DVT Px: Heparin sq
[2016-11-02] MEDS: MONTELUKAST NA 10 MG TABLET PO SCH (22:06)
[2016-11-02] MEDS ORDERED: PT OWN MED DRAWER 7, Y5N ONE (22:36)
[2016-11-03] MEDS: CEPHALEXIN MONOHYDRATE 500 MG CAPSULE (UD) PO SCH ×5 (00:56→23:06)
[2016-11-03] MEDS: NYSTATIN 500,000 UNITS/5 ML SUSPENSION PO SCH ×5 (00:56→23:06)
[2016-11-03] MEDS: guaiFENesin/CODEINE 5 ML UNIT-DOSE CUPS PO PRN ×2 (01:02→23:06)
[2016-11-03] MEDS: oxyCODONE HCL 5 MG TABLET PO PRN ×3 (04:17→20:14)
[2016-11-03] MEDS: ALPRAZolam 0.25 MG TABLET PO PRN ×3 (04:18→21:05)
[2016-11-03] MEDS: LEVOTHYROXINE NA 112 MCG TABLET (FP) PO SCH (06:09)
[2016-11-03] MEDS: INSULIN DETEMIR 100 UNITS/ML MDV SQ SCH ×2 (06:11→21:23)
[2016-11-03] MEDS: INSULIN SLIDING SCALE (NOVOLOG) 1 VIAL SQ SCH ×4 (06:11→21:22)
[2016-11-03] MEDS: ALBUTEROL SO4 0.083% IH SOL 2.5 MG/3 ML VIAL.NEB. NEB SCH (06:35)
[2016-11-03] MEDS ORDERED: PT OWN MED DRAWER 7, Y5N ONE (09:06)
[2016-11-03] MEDS: MEGESTROL ACETATE 40 MG TABLET PO SCH ×2 (09:11→21:24)
[2016-11-03] MEDS: MINERAL OIL/PETROLAT/WATER TOPICAL CREAM 113 GM JAR TP SCH (09:11)
[2016-11-03] MEDS: predniSONE 5 MG TABLET (UD) PO SCH (09:11)
[2016-11-03] MEDS: MOMETASONE FUROATE 220 MCG/IH INHALER IH SCH ×2 (09:11→21:24)
[2016-11-03] MEDS: FUROSEMIDE 40 MG/4 ML INJECTABLE VIAL IVPUSH SCH (10:06)
--- NOTE | 2016-11-03 10:40 | PN ---
Progress Note (short form) - Note Progress Note: Patient is feeling better less wheezy and breathing is improving Vital Signs Temperature 98.2 F 11/03/16 05:00 Pulse Rate 62 11/03/16 05:00 Respiratory Rate 20 11/03/16 05:00 Blood Pressure 122/68 11/03/16 05:00 O2 Sat by Pulse Oximetry (%) 97 11/02/16 21:00 GENERAL: cushingoid picture , awake, alert, and fully oriented, in mild distress. HEAD: Normal with no signs of trauma. EYES: sclera anicteric, conjunctiva clear. No ptosis. ENT:oropharynx clear without exudates, moist mucous membranes. NECK: no LAD, Trachea midline, full range of motion, supple. LUNGS: Breath sounds equal, clear to auscultation bilaterally, diffuse b/l wheezes improving, no crackles, occasional accessory muscle use. HEART: Regular rate and rhythm, S1, S2 without murmur, rub or gallop. ABDOMEN: Soft, nontender, nondistended, normoactive bowel sounds, no guarding, no rebound, no hepatosplenomegaly, no masses. EXTREMITIES: 2+ pulses, warm, well-perfused, 2+ pitting edema: improving. Cellulitic changes NEUROLOGICAL: Cranial nerves II through XII grossly intact. Normal speech. PSYCH: Normal mood, normal affect. SKIN: Warm, dry, normal turgor, no rashes or lesions noted CBCD WBC 9.1 K/mm3 (4.0-10.0) 11/02/16 06:00 RBC 3.68 M/mm3 (3.60-5.2) 11/02/16 06:00 Hgb 9.8 GM/dL (10.7-15.3) L 11/02/16 06:00 Hct 29.8 % (32.4-45.2) L 11/02/16 06:00 MCV 80.9 fl (80-96) 11/02/16 06:00 MCHC 32.8 g/dl (32.0-36.0) 11/02/16 06:00 RDW 19.0 % (11.6-15.6) H 11/02/16 06:00 Plt Count 245 K/MM3 (134-434) 11/02/16 06:00 MPV 7.7 fl (7.5-11.1) 11/02/16 06:00 CMP Sodium 141 mmol/L (136-145) 11/01/16 06:00 Potassium 4.4 mmol/L (3.5-5.1) 11/01/16 06:00 Chloride 105 mmol/L (98-107) 11/01/16 06:00 Carbon Dioxide 31 mmol/L (21-32) 11/01/16 06:00 Anion Gap 5 (8-16) L 11/01/16 06:00 BUN 7 mg/dL (7-18) D 11/01/16 06:00 Creatinine 0.9 mg/dL (0.55-1.02) 11/01/16 06:00 Creat Clearance w eGFR 41.11 (>60) 10/29/16 10:23 Random Glucose 162 mg/dL (74-106) H D 11/01/16 06:00 Calcium 8.5 mg/dL (8.5-10.1) 11/01/16 06:00 Total Bilirubin 0.5 mg/dL (0.2-1.0) D 10/29/16 10:23 AST 34 U/L (15-37) D 10/29/16 10:23 ALT 35 U/L (12-78) D 10/29/16 10:23 Alkaline Phosphatase 97 U/L (45-117) 10/29/16 10:23 Total Protein 6.1 g/dl (6.4-8.2) L 10/29/16 10:23 Albumin 2.7 g/dl (3.4-5.0) L 10/29/16 10:23 CARDIAC ENZYMES Troponin I < 0.02 ng/ml (0.00-0.05) 10/29/16 10:23 Current Medications Generic Name Dose Route Start Last Admin Trade Name Freq PRN Reason Stop Dose Admin Albuterol Sulfate 1 amp 10/29/16 14:18 11/02/16 11:17 Ventolin 0.083% Nebulizer Soln - NEB 1 amp Q4H PRN Administration SHORT OF BREATH/WHEEZING Albuterol Sulfate 1 amp 10/31/16 14:00 11/03/16 06:35 Ventolin 0.083% Nebulizer Soln - NEB 1 amp TIDR RAFA Administration Alprazolam 0.5 mg 10/29/16 14:26 11/03/16 04:18 Xanax - PO 0.5 mg Q8H PRN Administration ANXIETY Cephalexin HCl 500 mg 11/02/16 12:00 11/03/16 06:09 Keflex - PO 500 mg Q6HPO RAFA Administration Enoxaparin Sodium 80 mg 10/31/16 10:45 11/02/16 22:07 Lovenox - SQ 80 mg Q12H RAFA Administration Furosemide 40 mg 11/01/16 11:00 11/03/16 10:06 Lasix Injection - IVPUSH 40 mg DAILY RAFA Administration Guaifenesin/Codeine Phosphate 5 ml 11/02/16 18:52 11/03/16 01:02 Robitussin Ac - PO 5 ml HS PRN Administration COUGH Insulin Aspart 0 vial 10/29/16 16:30 11/03/16 06:11 Novolog Vial Sliding Scale - SQ 2 units ACHS RAFA Administration Protocol Insulin Detemir 40 units 10/29/16 22:00 11/03/16 06:11 Levemir Vial SQ 40 unit BID@0700,2200 RAFA Administration Levothyroxine Sodium 112 mcg 10/31/16 07:00 11/03/16 06:09 Synthroid - PO 112 mcg DAILY@0700 RAFA Administration Megestrol Acetate 80 mg 10/29/16 22:00 11/03/16 09:11 Megace - PO 80 mg BID RAFA Administration Mometasone Furoate 1 puff 11/01/16 11:00 11/03/16 09:11 Asmanex 220mcg - IH 1 puff BID RAFA Administration Montelukast Sodium 10 mg 10/29/16 22:00 11/02/16 22:06 Singulair - PO 10 mg HS RAFA Administration Multi-Ingredient Lotion 1 applic 11/01/16 11:00 11/03/16 09:11 Eucerin (Small Jar) - TP 1 applic DAILY RAFA Administration Nystatin 500,000 units 10/29/16 18:00 11/03/16 06:09 Nystatin Oral Suspension - PO 500,000 units Q6HPO RAFA Administration Ondansetron HCl 4 mg 10/29/16 14:57 10/30/16 20:02 Zofran Injection IVPUSH 4 mg Q6H PRN Administration NAUSEA AND/OR VOMITING Oxycodone HCl 10 mg 10/29/16 14:25 11/03/16 04:17 Roxicodone - PO 10 mg Q6H PRN Administration PAIN Prednisone 10 mg 10/30/16 10:00 11/03/16 09:11 Deltasone - PO 10 mg DAILY RAFA Administration Home Medications Medication Instructions Recorded Albuterol Sulfate Inhaler - 2 inh PO Q6H 08/30/16 [Ventolin HFA Inhaler -] Alprazolam [Xanax] 0.25 mg PO Q6H 08/30/16 Aspirin [ASA -] 81 mg PO DAILY 08/30/16 Cholecalciferol (Vitamin D3) 1,000 unit PO Q7D 08/30/16 [Vitamin D -] Furosemide [Lasix] 20 mg PO DAILY 08/30/16 Levothyroxine [Synthroid -] 100 mcg PO DAILY 08/30/16 Megestrol Acetate 80 mg PO BID 08/30/16 Montelukast Na [Singulair -] 10 mg PO HS 08/30/16 Ondansetron [Zofran -] 4 mg PO BID PRN 08/30/16 Oxycodone HCl 15 mg PO TID PRN 08/30/16 Atorvastatin Ca [Lipitor] 10 mg PO HS 10/29/16 Budesonide/Formeterol Fumarate 1 inh PO BID 10/29/16 [SYMBICORT 160/4.5mcg -] Insulin Aspart [Novolog] 10 unit SQ TID 10/29/16 Insulin Glargine,Hum.rec.anlog 40 units SQ BID 10/29/16 [Lantus (nf)] Lisinopril 10 mg PO DAILY 10/29/16 Prednisone [Deltasone -] 20 mg PO BID 10/29/16 Prochlorperazine Maleate 5 mg PO PRN 10/29/16 Ranitidine [Zantac -] 300 mg PO ONCE 10/29/16 Sertraline HCl 25 mg PO DAILY 10/29/16 A/P: 66yo F wtih PMH cervical cancer with lung mets on chemo, hypothyroid, CAD, DM and DVT presented to the ER with lethargy for several months. # Acute Cellulitis of lower extremties L>R, improving on Cephalexin 500mg PO Q6H . continue current therapy # Acute edema of lower extremities improving , patient develops on and off phelebitis of LEs due to swelling, will continue to monitor for now CBC, will discontinue IVF, will place her on IV diuretic 40mg daily for now. # Acute exacerbation of Asthma on nebulizer treatments will continue, on po Prednisone 10mg continue , Singulair continue ,pulmonary consult appreciated. continue as per recommendation # Chronic Back pain on Oxycodone 10mg q6h. # Anxiety disorder on Xanax 0.5mg q8h prn will continue (takes it at home) #Stage IV cervical CA, with lung mets was on RTX therapy. 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 # s/p ramon- resolved #IDDM sliding scale with coverage, levemir 40 bid # normocytic anemia- no signs of bleeding. likely dilutional component. now stable # Hypomagnesemia/ hypophosphotemia repleted. DVT Px: Heparin sq Visit type - Emergency Visit Emergency Visit: Yes ED Registration Date: 10/31/16 Care time: The patient presented to the Emergency Department on the above date and was hospitalized for further evaluation of their emergent condition. - New Patient This patient is new to me today: No - Critical Care Critical Care patient: No
[2016-11-03] MEDS: ENOXAPARIN NA (PORCINE) 80 MG/0.8 ML DISP.SYRIN SQ SCH ×2 (10:47→23:06)
--- NOTE | 2016-11-03 10:49 | PN ---
Progress Note (short form) - Note Progress Note: Still with some cough and wheezing. (+) [place] when she ambulates to the bathroom. Requesting Albuterol MDI. Intake & Output 10/31/16 11/01/16 11/02/16 11/03/16 23:59 23:59 23:59 23:59 Intake Total 9660 979 4770 200 Output Total 2000 300 Balance -971 126 1243 200 Last Vital Signs Temp Pulse Resp BP Pulse Ox 98.2 F 62 20 122/68 97 11/03/16 05:00 11/03/16 05:00 11/03/16 05:00 11/03/16 05:00 11/02/16 21:00 Active Medications Albuterol Sulfate (Ventolin 0.083% Nebulizer Soln -) 1 amp NEB Q4H PRN PRN Reason: SHORT OF BREATH/WHEEZING Last Admin: 11/02/16 11:17 Dose: 1 amp Albuterol Sulfate (Ventolin 0.083% Nebulizer Soln -) 1 amp NEB TIDR [facility] Last Admin: 11/03/16 06:35 Dose: 1 amp Alprazolam (Xanax -) 0.5 mg PO Q8H PRN PRN Reason: ANXIETY Last Admin: 11/03/16 04:18 Dose: 0.5 mg Cephalexin HCl (Keflex -) 500 mg PO Q6HPO RAFA Last Admin: 11/03/16 06:09 Dose: 500 mg Enoxaparin Sodium (Lovenox -) 80 mg SQ Q12H RAFA Last Admin: 11/02/16 22:07 Dose: 80 mg Furosemide (Lasix Injection -) 40 mg IVPUSH DAILY [facility] Last Admin: 11/03/16 10:06 Dose: 40 mg Guaifenesin/Codeine Phosphate (Robitussin Ac -) 5 ml PO HS PRN PRN Reason: COUGH Last Admin: 11/03/16 01:02 Dose: 5 ml Insulin Aspart (Novolog Vial Sliding Scale -) 0 vial SQ ACHS [facility] PRN Reason: Protocol Last Admin: 11/03/16 06:11 Dose: 2 units Insulin Detemir (Levemir Vial) 40 units SQ BID@0700,2200 [facility] Last Admin: 11/03/16 06:11 Dose: 40 unit Levothyroxine Sodium (Synthroid -) 112 mcg PO DAILY@0700 [facility] Last Admin: 11/03/16 06:09 Dose: 112 mcg Megestrol Acetate (Megace -) 80 mg PO BID [facility] Last Admin: 11/03/16 09:11 Dose: 80 mg Mometasone Furoate (Asmanex 220mcg -) 1 puff IH BID [facility] Last Admin: 11/03/16 09:11 Dose: 1 puff Montelukast Sodium (Singulair -) 10 mg PO HS [facility] Last Admin: 11/02/16 22:06 Dose: 10 mg Multi-Ingredient Lotion (Eucerin (Small Jar) -) 1 applic TP DAILY [facility] Last Admin: 11/03/16 09:11 Dose: 1 applic Nystatin (Nystatin Oral Suspension -) 500,000 units PO Q6HPO [facility] Last Admin: 11/03/16 06:09 Dose: 500,000 units Ondansetron HCl (Zofran Injection) 4 mg IVPUSH Q6H PRN PRN Reason: NAUSEA AND/OR VOMITING Last Admin: 10/30/16 20:02 Dose: 4 mg Oxycodone HCl (Roxicodone -) 10 mg PO Q6H PRN PRN Reason: PAIN Last Admin: 11/03/16 04:17 Dose: 10 mg Prednisone (Deltasone -) 10 mg PO DAILY [facility] Last Admin: 11/03/16 09:11 Dose: 10 mg Gen: cushingoid, mildly tachypneic with speaking Heart: tachycardic, regular Lung: scattered rhonchi, wheezes Abd: soft, nontender Ext: + edema, distal erythema Laboratory Results - last 24 hr 11/02/16 11/02/16 11/02/16 06:00 13:31 17:13 WBC 9.1 RBC 3.68 Hgb 9.8 L Hct 29.8 L MCV 80.9 MCH 26.5 MCHC 32.8 RDW 19.0 H Plt Count 245 MPV 7.7 Neutrophils % 65.0 Lymphocytes % 27.0 Monocytes % 7.0 Band Neutrophils 1.0 D Differential Comment Manual diff done Platelet Estimate Adequate POC Glucometer 345 397 11/02/16 11/03/16 21:56 06:06 WBC RBC Hgb Hct MCV MCH MCHC RDW Plt Count MPV Neutrophils % Lymphocytes % Monocytes % Band Neutrophils Differential Comment Platelet Estimate POC Glucometer 332 183 A/P Metastatic Cervical Cancer with multiple lung mets Asthma/COPD CAD DM h/o DVT - Albuterol HFA PRN - Lasix - inhaled bronchodilators - Asmanex per patient's request - on chronic prednisone, megace - singulair - continue LMWH - O2 to keep SpO2 >90% Dr Gibbons
[2016-11-03] MEDS: ALBUTEROL SO4 0.083% IH SOL 2.5 MG/3 ML VIAL.NEB. NEB PRN ×2 (13:44→20:00)
[2016-11-03] MEDS: ALBUTEROL SO4 6.7 GM HFA INHALER IH SCH ×2 (18:20→21:23)
[2016-11-03] MEDS: MONTELUKAST NA 10 MG TABLET PO SCH (21:24)
[2016-11-04] MEDS: ALBUTEROL SO4 0.083% IH SOL 2.5 MG/3 ML VIAL.NEB. NEB PRN ×2 (00:03→13:25)
[2016-11-04] MEDS: oxyCODONE HCL 5 MG TABLET PO PRN ×3 (04:19→18:53)
[2016-11-04] MEDS: ALPRAZolam 0.25 MG TABLET PO PRN ×3 (05:31→22:25)
[2016-11-04] MEDS ORDERED: PT OWN MED DRAWER 7, Y5N ONE ×5 (06:06→21:00)
[2016-11-04] MEDS: INSULIN SLIDING SCALE (NOVOLOG) 1 VIAL SQ SCH ×4 (06:14→22:23)
[2016-11-04] MEDS: NYSTATIN 500,000 UNITS/5 ML SUSPENSION PO SCH ×3 (06:15→17:49)
[2016-11-04] MEDS: CEPHALEXIN MONOHYDRATE 500 MG CAPSULE (UD) PO SCH ×3 (06:15→17:49)
[2016-11-04] MEDS: ALBUTEROL SO4 6.7 GM HFA INHALER IH SCH ×3 (06:15→22:24)
[2016-11-04] MEDS: LEVOTHYROXINE NA 112 MCG TABLET (FP) PO SCH (06:19)
[2016-11-04] MEDS: INSULIN DETEMIR 100 UNITS/ML MDV SQ SCH ×2 (06:20→22:22)
[2016-11-04 07:47] LABS: MCH 26.6 pg (25.7-33.7); MEAN CELL VOLUME 80.8 fl (80-96); MEAN PLT VOLUME 7.8 fl (7.5-11.1); PLATELET COUNT 232 K/MM3 (134-434); RDW 18.9 % (11.6-15.6); WHITE BLOOD COUNT 8.9 K/mm3 (4.0-10.0)
[2016-11-04 08:15] LABS: ALBUMIN 2.7 g/dl (3.4-5.0); ANION GAP 7 (8-16); CALCIUM 8.4 mg/dL (8.5-10.1); CO2 31 mmol/L (21-32); CREATININE 0.9 mg/dL (0.55-1.02); GLUCOSE,RANDOM 113 mg/dL (74-106); MAGNESIUM 1.8 mg/dL (1.8-2.4); SGOT/AST 20 U/L (15-37); SGPT/ALT 24 U/L (12-78)
[2016-11-04 08:17] LABS: ALK PHOS 86 U/L (45-117); BILIRUBIN,TOTAL 0.2 mg/dL (0.2-1.0); TOT PROT 6.2 g/dl (6.4-8.2)
--- NOTE | 2016-11-04 09:41 | PN ---
Progress Note (short form) - Note Progress Note: Patient is feeling better. Temperature 98.1 F 11/04/16 06:00 Pulse Rate 89 11/04/16 06:00 Respiratory Rate 22 11/04/16 06:00 Blood Pressure 136/78 11/04/16 06:00 O2 Sat by Pulse Oximetry (%) 97 11/03/16 21:00 GENERAL: cushingoid appearance , awake, alert, and fully oriented, in mild distress. HEAD: Normal with no signs of trauma. EYES: sclera anicteric, conjunctiva clear. No ptosis. ENT:oropharynx clear without exudates, moist mucous membranes. NECK: no LAD, Trachea midline, full range of motion, supple. LUNGS: decreased BS BL , diffuse b/l wheezes improving, no crackles, occasional accessory muscle use. HEART: Regular rate and rhythm, S1, S2 without murmur, rub or gallop. ABDOMEN: Soft, nontender, nondistended, normoactive bowel sounds, no guarding, no rebound, no hepatosplenomegaly, no masses. EXTREMITIES: 2+ pulses, warm, well-perfused, 2+ pitting edema: improving. Cellulitic changes NEUROLOGICAL: Cranial nerves II through XII grossly intact. Normal speech. PSYCH: Normal mood, normal affect. SKIN: Warm, dry, normal turgor, no rashes or lesions noted CBCD WBC 8.9 K/mm3 (4.0-10.0) 11/04/16 06:10 RBC 3.56 M/mm3 (3.60-5.2) L 11/04/16 06:10 Hgb 9.5 GM/dL (10.7-15.3) L 11/04/16 06:10 Hct 28.7 % (32.4-45.2) L 11/04/16 06:10 MCV 80.8 fl (80-96) 11/04/16 06:10 MCHC 33.0 g/dl (32.0-36.0) 11/04/16 06:10 RDW 18.9 % (11.6-15.6) H 11/04/16 06:10 Plt Count 232 K/MM3 (134-434) 11/04/16 06:10 MPV 7.8 fl (7.5-11.1) 11/04/16 06:10 CMP Sodium 141 mmol/L (136-145) 11/04/16 06:10 Potassium 4.1 mmol/L (3.5-5.1) 11/04/16 06:10 Chloride 103 mmol/L (98-107) 11/04/16 06:10 Carbon Dioxide 31 mmol/L (21-32) 11/04/16 06:10 Anion Gap 7 (8-16) L 11/04/16 06:10 BUN 11 mg/dL (7-18) D 11/04/16 06:10 Creatinine 0.9 mg/dL (0.55-1.02) 11/04/16 06:10 Creat Clearance w eGFR > 60 (>60) 11/04/16 06:10 Random Glucose 113 mg/dL (74-106) H D 11/04/16 06:10 Calcium 8.4 mg/dL (8.5-10.1) L 11/04/16 06:10 Total Bilirubin 0.2 mg/dL (0.2-1.0) D 11/04/16 06:10 AST 20 U/L (15-37) D 11/04/16 06:10 ALT 24 U/L (12-78) D 11/04/16 06:10 Alkaline Phosphatase 86 U/L (45-117) 11/04/16 06:10 Total Protein 6.2 g/dl (6.4-8.2) L 11/04/16 06:10 Albumin 2.7 g/dl (3.4-5.0) L 11/04/16 06:10 CARDIAC ENZYMES Troponin I < 0.02 ng/ml (0.00-0.05) 10/29/16 10:23 Current Medications Generic Name Dose Route Start Last Admin Trade Name Freq PRN Reason Stop Dose Admin Albuterol Sulfate 1 amp 10/29/16 14:18 11/04/16 00:03 Ventolin 0.083% Nebulizer Soln - NEB 1 amp Q4H PRN Administration SHORT OF BREATH/WHEEZING Albuterol Sulfate 2 puff 11/03/16 14:00 11/04/16 06:15 Ventolin Hfa Inhaler - IH 2 puff TID RAFA Administration Alprazolam 0.5 mg 10/29/16 14:26 11/04/16 05:31 Xanax - PO 0.5 mg Q8H PRN Administration ANXIETY Cephalexin HCl 500 mg 11/02/16 12:00 11/04/16 06:15 Keflex - PO 500 mg Q6HPO RAFA Administration Enoxaparin Sodium 80 mg 10/31/16 10:45 11/03/16 23:06 Lovenox - SQ 80 mg Q12H RAFA Administration Furosemide 40 mg 11/01/16 11:00 11/03/16 10:06 Lasix Injection - IVPUSH 40 mg DAILY RAFA Administration Guaifenesin/Codeine Phosphate 5 ml 11/02/16 18:52 11/03/16 23:06 Robitussin Ac - PO 5 ml HS PRN Administration COUGH Insulin Aspart 0 vial 10/29/16 16:30 11/04/16 06:14 Novolog Vial Sliding Scale - SQ Not Given ACHS [facility] Protocol Insulin Detemir 40 units 10/29/16 22:00 11/04/16 06:20 Levemir Vial SQ 40 unit BID@0700,2200 RAFA Administration Levothyroxine Sodium 112 mcg 10/31/16 07:00 11/04/16 06:19 Synthroid - PO 112 mcg DAILY@0700 RAFA Administration Megestrol Acetate 80 mg 10/29/16 22:00 11/03/16 21:24 Megace - PO 80 mg BID RAFA Administration Mometasone Furoate 1 puff 11/01/16 11:00 11/03/16 21:24 Asmanex 220mcg - IH 1 puff BID RAFA Administration Montelukast Sodium 10 mg 10/29/16 22:00 11/03/16 21:24 Singulair - PO 10 mg HS RAFA Administration Multi-Ingredient Lotion 1 applic 11/01/16 11:00 11/03/16 09:11 Eucerin (Small Jar) - TP 1 applic DAILY RAFA Administration Nystatin 500,000 units 10/29/16 18:00 11/04/16 06:15 Nystatin Oral Suspension - PO 500,000 units Q6HPO RAFA Administration Ondansetron HCl 4 mg 10/29/16 14:57 10/30/16 20:02 Zofran Injection IVPUSH 4 mg Q6H PRN Administration NAUSEA AND/OR VOMITING Oxycodone HCl 10 mg 10/29/16 14:25 11/04/16 04:19 Roxicodone - PO 10 mg Q6H PRN Administration PAIN Prednisone 10 mg 10/30/16 10:00 11/03/16 09:11 Deltasone - PO 10 mg DAILY RAFA Administration Home Medications Medication Instructions Recorded Albuterol Sulfate Inhaler - 2 inh PO Q6H 08/30/16 [Ventolin HFA Inhaler -] Alprazolam [Xanax] 0.25 mg PO Q6H 08/30/16 Aspirin [ASA -] 81 mg PO DAILY 08/30/16 Cholecalciferol (Vitamin D3) 1,000 unit PO Q7D 08/30/16 [Vitamin D -] Furosemide [Lasix] 20 mg PO DAILY 08/30/16 Levothyroxine [Synthroid -] 100 mcg PO DAILY 08/30/16 Megestrol Acetate 80 mg PO BID 08/30/16 Montelukast Na [Singulair -] 10 mg PO HS 08/30/16 Ondansetron [Zofran -] 4 mg PO BID PRN 08/30/16 Oxycodone HCl 15 mg PO TID PRN 08/30/16 Atorvastatin Ca [Lipitor] 10 mg PO HS 10/29/16 Budesonide/Formeterol Fumarate 1 inh PO BID 10/29/16 [SYMBICORT 160/4.5mcg -] Insulin Aspart [Novolog] 10 unit SQ TID 10/29/16 Insulin Glargine,Hum.rec.anlog 40 units SQ BID 10/29/16 [Lantus (nf)] Lisinopril 10 mg PO DAILY 10/29/16 Prednisone [Deltasone -] 20 mg PO BID 10/29/16 Prochlorperazine Maleate 5 mg PO PRN 10/29/16 Ranitidine [Zantac -] 300 mg PO ONCE 10/29/16 Sertraline HCl 25 mg PO DAILY 10/29/16 A/P: 66yo F wtih PMH cervical cancer with lung mets on chemo, hypothyroid, CAD, DM and DVT presented to the ER with lethargy for several months. # Acute Cellulitis of lower extremties L>R, improving on Cephalexin 500mg PO Q6H will continue # Acute exacerbation of Asthma on nebulizer treatments will continue, on po Prednisone 10mg continue , Singulair continue ,pulmonary consult appreciated. continue current therapy # Chronic Back pain on Oxycodone 10mg q6h. # Anxiety disorder on Xanax 0.5mg q8h prn will continue (takes it at home) #Stage IV cervical CA, with lung mets was on RTX therapy. will continue once stable # s/p Lethargy- increased the dose of Synthroid since elevated TSH # cushingoid appearances- likely due to chronic steroid use due to malignancy. # s/p ramon- resolved # IDDM sliding scale with coverage, levemir 40 bid # normocytic anemia- no signs of bleeding. stable # Hypomagnesemia/ hypophosphotemia repleted. DVT Px: Heparin sq possible discharge in am if stable Visit type - Emergency Visit Emergency Visit: Yes ED Registration Date: 10/31/16 Care time: The patient presented to the Emergency Department on the above date and was hospitalized for further evaluation of their emergent condition. - New Patient This patient is new to me today: No - Critical Care Critical Care patient: No
[2016-11-04] MEDS: MOMETASONE FUROATE 220 MCG/IH INHALER IH SCH ×2 (10:05→22:21)
[2016-11-04] MEDS: FUROSEMIDE 40 MG/4 ML INJECTABLE VIAL IVPUSH SCH (10:05)
[2016-11-04] MEDS: MINERAL OIL/PETROLAT/WATER TOPICAL CREAM 113 GM JAR TP SCH (10:05)
[2016-11-04] MEDS: predniSONE 5 MG TABLET (UD) PO SCH (10:05)
[2016-11-04] MEDS: MEGESTROL ACETATE 40 MG TABLET PO SCH ×2 (10:06→22:22)
[2016-11-04 10:25] LABS: ANISOCYTOSIS 1+; METAMYELOCYTE 2 % (0-2); MICROCYTOSIS 1+; PLATELET ESTIMATE ADEQUATE (NORMAL)
--- NOTE | 2016-11-04 11:31 | PN ---
Progress Note (short form) - Note Progress Note: Still with some cough and wheezing, but feels a little better today. Looks less Tachypneic than yesterday. No CP. No acute events overnight. Intake & Output 11/01/16 11/02/16 11/03/16 11/04/16 23:59 23:59 23:59 23:59 Intake Total 662 1342 930 180 Output Total 300 Balance 362 1342 930 180 Last Vital Signs Temp Pulse Resp BP Pulse Ox 98.1 F 89 22 136/78 97 11/04/16 06:00 11/04/16 06:00 11/04/16 06:00 11/04/16 06:00 11/03/16 21:00 Active Medications Albuterol Sulfate (Ventolin 0.083% Nebulizer Soln -) 1 amp NEB Q4H PRN PRN Reason: SHORT OF BREATH/WHEEZING Last Admin: 11/04/16 00:03 Dose: 1 amp Albuterol Sulfate (Ventolin Hfa Inhaler -) 2 puff IH TID [facility] Last Admin: 11/04/16 06:15 Dose: 2 puff Alprazolam (Xanax -) 0.5 mg PO Q8H PRN PRN Reason: ANXIETY Last Admin: 11/04/16 05:31 Dose: 0.5 mg Cephalexin HCl (Keflex -) 500 mg PO Q6HPO [facility] Last Admin: 11/04/16 06:15 Dose: 500 mg Enoxaparin Sodium (Lovenox -) 80 mg SQ Q12H [facility] Last Admin: 11/03/16 23:06 Dose: 80 mg Furosemide (Lasix Injection -) 40 mg IVPUSH DAILY [facility] Last Admin: 11/04/16 10:05 Dose: 40 mg Guaifenesin/Codeine Phosphate (Robitussin Ac -) 5 ml PO HS PRN PRN Reason: COUGH Last Admin: 11/03/16 23:06 Dose: 5 ml Insulin Aspart (Novolog Vial Sliding Scale -) 0 vial SQ ACHS [facility] PRN Reason: Protocol Last Admin: 11/04/16 06:14 Dose: Not Given Insulin Detemir (Levemir Vial) 40 units SQ BID@0700,2200 [facility] Last Admin: 11/04/16 06:20 Dose: 40 unit Levothyroxine Sodium (Synthroid -) 112 mcg PO DAILY@0700 [facility] Last Admin: 11/04/16 06:19 Dose: 112 mcg Megestrol Acetate (Megace -) 80 mg PO BID [facility] Last Admin: 11/04/16 10:06 Dose: 80 mg Mometasone Furoate (Asmanex 220mcg -) 1 puff IH BID [facility] Last Admin: 11/04/16 10:05 Dose: 1 puff Montelukast Sodium (Singulair -) 10 mg PO HS [facility] Last Admin: 11/03/16 21:24 Dose: 10 mg Multi-Ingredient Lotion (Eucerin (Small Jar) -) 1 applic TP DAILY [facility] Last Admin: 11/04/16 10:05 Dose: 1 applic Nystatin (Nystatin Oral Suspension -) 500,000 units PO Q6HPO [facility] Last Admin: 11/04/16 06:15 Dose: 500,000 units Ondansetron HCl (Zofran Injection) 4 mg IVPUSH Q6H PRN PRN Reason: NAUSEA AND/OR VOMITING Last Admin: 10/30/16 20:02 Dose: 4 mg Oxycodone HCl (Roxicodone -) 10 mg PO Q6H PRN PRN Reason: PAIN Last Admin: 11/04/16 10:07 Dose: 10 mg Prednisone (Deltasone -) 10 mg PO DAILY [facility] Last Admin: 11/04/16 10:05 Dose: 10 mg Gen: cushingoid, Less tachypneic with speaking Heart: tachycardic, regular Lung: scattered rhonchi, wheezes Abd: soft, nontender Ext: + edema, distal erythema Laboratory Results - last 24 hr 11/03/16 11/03/16 11/03/16 11:28 17:40 21:00 WBC RBC Hgb Hct MCV MCH MCHC RDW Plt Count MPV Neutrophils % Lymphocytes % Monocytes % Band Neutrophils Metamyelocytes Platelet Estimate Platelet Comment Anisocytosis Microcytosis Sodium Potassium Chloride Carbon Dioxide Anion Gap BUN Creatinine Creat Clearance w eGFR POC Glucometer 232 333 377 Random Glucose Calcium Magnesium Total Bilirubin AST ALT Alkaline Phosphatase Total Protein Albumin 11/04/16 11/04/16 11/04/16 06:10 06:10 06:11 WBC 8.9 RBC 3.56 L Hgb 9.5 L Hct 28.7 L MCV 80.8 MCH 26.6 MCHC 33.0 RDW 18.9 H Plt Count 232 MPV 7.8 Neutrophils % 61.0 Lymphocytes % 30.0 Monocytes % 6.0 Band Neutrophils 1.0 Metamyelocytes 2 D Platelet Estimate Adequate Platelet Comment No clumping noted Anisocytosis 1+ Microcytosis 1+ Sodium 141 Potassium 4.1 Chloride 103 Carbon Dioxide 31 Anion Gap 7 L BUN 11 D Creatinine 0.9 Creat Clearance w eGFR > 60 POC Glucometer 118 Random Glucose 113 H D Calcium 8.4 L Magnesium 1.8 Total Bilirubin 0.2 D AST 20 D ALT 24 D Alkaline Phosphatase 86 Total Protein 6.2 L Albumin 2.7 L A/P Metastatic Cervical Cancer with multiple lung mets Asthma/COPD CAD DM h/o DVT - Albuterol HFA PRN - Lasix - inhaled bronchodilators - Asmanex per patient's request - on chronic prednisone, megace - singulair - continue LMWH - O2 to keep SpO2 >90% Dr Gibbons
[2016-11-04] MEDS: ENOXAPARIN NA (PORCINE) 80 MG/0.8 ML DISP.SYRIN SQ SCH ×2 (12:19→22:25)
[2016-11-04] MEDS ORDERED: INSULIN (NOVOLOG) ASPART 100 UNITS/ML 10ML VIAL ONE (12:21)
[2016-11-04] MEDS: MONTELUKAST NA 10 MG TABLET PO SCH (22:24)
[2016-11-04] MEDS: RANITIDINE HCL 150 MG TABLET (FP) PO SCH (22:25)
[2016-11-04] MEDS: guaiFENesin/CODEINE 5 ML UNIT-DOSE CUPS PO PRN (22:27)
[2016-11-05] MEDS: CEPHALEXIN MONOHYDRATE 500 MG CAPSULE (UD) PO SCH ×5 (00:24→23:15)
[2016-11-05] MEDS: NYSTATIN 500,000 UNITS/5 ML SUSPENSION PO SCH ×5 (00:24→23:15)
[2016-11-05] MEDS: oxyCODONE HCL 5 MG TABLET PO PRN ×3 (01:21→19:01)
[2016-11-05] MEDS ORDERED: ALPRAZolam 0.25 MG TABLET PO ONE (05:37)
[2016-11-05] MEDS ORDERED: oxyCODONE HCL 5 MG TABLET PO ONE (05:39)
[2016-11-05] MEDS ORDERED: PT OWN MED DRAWER 7, Y5N ONE ×3 (05:53→21:58)
[2016-11-05] MEDS: LEVOTHYROXINE NA 112 MCG TABLET (FP) PO SCH (06:28)
[2016-11-05] MEDS: ALBUTEROL SO4 6.7 GM HFA INHALER IH SCH ×3 (06:28→22:02)
[2016-11-05] MEDS: INSULIN DETEMIR 100 UNITS/ML MDV SQ SCH ×2 (06:29→22:02)
[2016-11-05] MEDS: INSULIN SLIDING SCALE (NOVOLOG) 1 VIAL SQ SCH ×4 (06:29→22:03)
--- NOTE | 2016-11-05 09:13 | PN ---
Physical Exam: SUBJECTIVE: Patient seen and examined at bedside. No acute events overnight. Pt feels much better, but not totally improved. OBJECTIVE: Vital Signs Period Temp Pulse Resp BP Sys/Encarnacion Pulse Ox Last 24 Hr 98.5 F-99.4 F 93-104 20-20 136-162/60-85 97 GENERAL: The patient is awake, alert, and fully oriented, in no acute distress. HEAD: Normal with no signs of trauma. EYES: PERRL, extraocular movements intact, sclera anicteric, conjunctiva clear. No ptosis. ENT: Ears normal, nares patent, oropharynx clear without exudates, moist mucous membranes. NECK: Trachea midline, full range of motion, supple. LUNGS: Breath sounds equal, clear to auscultation bilaterally, no wheezes, no crackles, no accessory muscle use. HEART: Regular rate and rhythm, normal S1, S2 without murmur, rub or gallop. ABDOMEN: Soft, nontender, nondistended, normoactive bowel sounds, no guarding, no rebound, no hepatosplenomegaly, no masses. EXTREMITIES: 2+ pulses, warm, well-perfused, 1+ edema. NEUROLOGICAL: Cranial nerves II through XII grossly intact. Normal speech, gait not observed. PSYCH: Normal mood, normal affect. SKIN: Warm, dry, normal turgor, b/l LE erythema Laboratory Results - last 24 hr 11/04/16 11/04/16 11/04/16 06:10 12:01 16:41 WBC 8.9 RBC 3.56 L Hgb 9.5 L Hct 28.7 L MCV 80.8 MCH 26.6 MCHC 33.0 RDW 18.9 H Plt Count 232 MPV 7.8 Neutrophils % 61.0 Lymphocytes % 30.0 Monocytes % 6.0 Band Neutrophils 1.0 Metamyelocytes 2 D Platelet Estimate Adequate Platelet Comment No clumping noted Anisocytosis 1+ Microcytosis 1+ POC Glucometer 199 322 11/04/16 11/05/16 21:45 06:08 WBC RBC Hgb Hct MCV MCH MCHC RDW Plt Count MPV Neutrophils % Lymphocytes % Monocytes % Band Neutrophils Metamyelocytes Platelet Estimate Platelet Comment Anisocytosis Microcytosis POC Glucometer 352 228 Active Medications Generic Name Dose Route Start Last Admin Trade Name Freq PRN Reason Stop Dose Admin Albuterol Sulfate 1 amp 10/29/16 14:18 07/23/17 13:25 Ventolin 0.083% Nebulizer Soln - NEB 1 amp Q4H PRN Administration SHORT OF BREATH/WHEEZING Albuterol Sulfate 2 puff 11/03/16 14:00 11/05/16 06:28 Ventolin Hfa Inhaler - IH 2 puff TID [facility] Administration Alprazolam 0.5 mg 11/05/16 06:57 Xanax - PO Q8H PRN ANXIETY Cephalexin HCl 500 mg 11/02/16 12:00 11/05/16 06:28 Keflex - PO 500 mg Q6HPO [facility] Administration Enoxaparin Sodium 80 mg 10/31/16 10:45 11/04/16 22:25 Lovenox - SQ 80 mg Q12H [facility] Administration Furosemide 40 mg 11/01/16 11:00 11/04/16 10:05 Lasix Injection - IVPUSH 40 mg DAILY [facility] Administration Insulin Aspart 0 vial 10/29/16 16:30 11/05/16 06:29 Novolog Vial Sliding Scale - SQ 4 units ACHS [facility] Administration Protocol Insulin Detemir 40 units 10/29/16 22:00 11/05/16 06:29 Levemir Vial SQ 40 unit BID@0700,2200 [facility] Administration Levothyroxine Sodium 112 mcg 10/31/16 07:00 11/05/16 06:28 Synthroid - PO 112 mcg DAILY@0700 [facility] Administration Megestrol Acetate 80 mg 10/29/16 22:00 11/04/16 22:22 Megace - PO 80 mg BID [facility] Administration Mometasone Furoate 1 puff 11/01/16 11:00 11/04/16 22:21 Asmanex 220mcg - IH 1 puff BID [facility] Administration Montelukast Sodium 10 mg 10/29/16 22:00 11/04/16 22:24 Singulair - PO 10 mg HS [facility] Administration Multi-Ingredient Lotion 1 applic 11/01/16 11:00 11/04/16 10:05 Eucerin (Small Jar) - TP 1 applic DAILY [facility] Administration Nystatin 500,000 units 10/29/16 18:00 11/05/16 06:28 Nystatin Oral Suspension - PO 500,000 units Q6HPO [facility] Administration Ondansetron HCl 4 mg 10/29/16 14:57 10/30/16 20:02 Zofran Injection IVPUSH 4 mg Q6H PRN Administration NAUSEA AND/OR VOMITING Oxycodone HCl 10 mg 11/05/16 08:35 Roxicodone - PO Q8H PRN PAIN Prednisone 10 mg 10/30/16 10:00 11/04/16 10:05 Deltasone - PO 10 mg DAILY [facility] Administration Ranitidine HCl 150 mg 11/04/16 22:00 11/04/16 22:25 Zantac - PO 150 mg BID [facility] Administration ASSESSMENT/PLAN: This is a 66 yo F with PMH of cervical CA w lung mets, on daily prednisone (dx 2008, sp IV chemo 5 yrs ago, currently on PO chemo), asthma, hypothyroidism, CAD , IDDM, DVT (left leg, off lovenox and ASA x 1 p/d cataract sho), who presents per PCP request due to lethargy and malaise x 2 w with worsening over past 4 days. #Cellulitis -Cephalexin 500mg PO Q6H #volume overload: improving -hold IVF -Lasix to 40mg PO Daily -CXR: mass like opacities, hilar prominence. No infiltrate mentioned. #Asthma/COPD: improving -Cont O2 -Albuterol Neb TID [facility] -Albuterol Neb Q4 PRN -Asmanex 220mcg 1 buff BID -Pulm (Dr. Gibbons) recs appreciated #Lethargy/malaise: Resolved - TSH: 7.17, Free T3: 1.9, Free T4: 0.93 #Acute on chronic microcytic anemia: likely dilutional: STABLE -Hgb drop from 11.9 to 10.3 in 1 mo. Now stable at 9.2 #Relative hypotension: RESOLVED -baseline BP 130-140 systolic -vol depletion vs endocrine causes #SARAH: RESOLVED -BUN/Creat 12/0.9 -likely prerental, will IV hydrate and trend creat #IDDM -BGM ACHS, -Sliding scale -levemir 40 bid #history DVT: -Lovenox 80mg SubQ Q12H #CAD -hold asa #HLD -pharmacy does not confirm any statin therapy #Stage IV cervical CA, lung mets -CXR stable, slight increse in nodule size -continue PO chemo regimen #Chronic back pain -oxycodone 10 tid prn #Anxiety -Xanex 0.5mg Q8 PRN #FEN NS@100 lytes repleted: 1gm Mg diabetic na restricted diet hold a/c, zantac #PPx -DVT - pt on elequis -GI - Zantac -Deconditioning - PT #Dispo: admit to med/surg Visit type - Emergency Visit Emergency Visit: No - New Patient This patient is new to me today: No - Critical Care Critical Care patient: No
--- NOTE | 2016-11-05 10:20 | PN ---
Progress Note (short form) - Note Progress Note: Still with some cough and wheezing, but continues to slowly/progressively improve. Not at her baseline but much better than on admission. Looks more comfortable than yesterday. No CP. No acute events overnight. Intake & Output 11/02/16 11/03/16 11/04/16 11/05/16 23:59 23:59 23:59 23:59 Intake Total 1342 930 420 0 Balance 1342 930 420 0 Last Vital Signs Temp Pulse Resp BP Pulse Ox 98.5 F 93 H 20 153/84 97 11/05/16 06:00 11/05/16 06:00 11/05/16 06:00 11/05/16 06:00 11/04/16 21:00 Active Medications Albuterol Sulfate (Ventolin 0.083% Nebulizer Soln -) 1 amp NEB Q4H PRN PRN Reason: SHORT OF BREATH/WHEEZING Last Admin: 11/04/16 13:25 Dose: 1 amp Albuterol Sulfate (Ventolin Hfa Inhaler -) 2 puff IH TID [facility] Last Admin: 11/05/16 06:28 Dose: 2 puff Alprazolam (Xanax -) 0.5 mg PO Q8H PRN PRN Reason: ANXIETY Cephalexin HCl (Keflex -) 500 mg PO Q6HPO [facility] Last Admin: 11/05/16 06:28 Dose: 500 mg Enoxaparin Sodium (Lovenox -) 80 mg SQ Q12H [facility] Last Admin: 11/04/16 22:25 Dose: 80 mg Furosemide (Lasix Injection -) 40 mg IVPUSH DAILY [facility] Last Admin: 11/04/16 10:05 Dose: 40 mg Insulin Aspart (Novolog Vial Sliding Scale -) 0 vial SQ ACHS [facility] PRN Reason: Protocol Last Admin: 11/05/16 06:29 Dose: 4 units Insulin Detemir (Levemir Vial) 40 units SQ BID@0700,2200 [facility] Last Admin: 11/05/16 06:29 Dose: 40 unit Levothyroxine Sodium (Synthroid -) 112 mcg PO DAILY@0700 [facility] Last Admin: 11/05/16 06:28 Dose: 112 mcg Megestrol Acetate (Megace -) 80 mg PO BID [facility] Last Admin: 11/04/16 22:22 Dose: 80 mg Mometasone Furoate (Asmanex 220mcg -) 1 puff IH BID [facility] Last Admin: 11/04/16 22:21 Dose: 1 puff Montelukast Sodium (Singulair -) 10 mg PO HS [facility] Last Admin: 11/04/16 22:24 Dose: 10 mg Multi-Ingredient Lotion (Eucerin (Small Jar) -) 1 applic TP DAILY [facility] Last Admin: 11/04/16 10:05 Dose: 1 applic Nystatin (Nystatin Oral Suspension -) 500,000 units PO Q6HPO [facility] Last Admin: 11/05/16 06:28 Dose: 500,000 units Ondansetron HCl (Zofran Injection) 4 mg IVPUSH Q6H PRN PRN Reason: NAUSEA AND/OR VOMITING Last Admin: 10/30/16 20:02 Dose: 4 mg Oxycodone HCl (Roxicodone -) 10 mg PO Q8H PRN PRN Reason: PAIN Prednisone (Deltasone -) 10 mg PO DAILY [facility] Last Admin: 11/04/16 10:05 Dose: 10 mg Ranitidine HCl (Zantac -) 150 mg PO BID [facility] Last Admin: 11/04/16 22:25 Dose: 150 mg Gen: cushingoid, Less tachypneic and more comfortable Heart: S1S2, regular Lung: scattered rhonchi and bilateral expiratory wheezes : improved from yesterday Abd: soft, nontender Ext: + edema, distal erythema Laboratory Results - last 24 hr 11/04/16 11/04/16 11/04/16 06:10 12:01 16:41 WBC 8.9 RBC 3.56 L Hgb 9.5 L Hct 28.7 L MCV 80.8 MCH 26.6 MCHC 33.0 RDW 18.9 H Plt Count 232 MPV 7.8 Neutrophils % 61.0 Lymphocytes % 30.0 Monocytes % 6.0 Band Neutrophils 1.0 Metamyelocytes 2 D Platelet Estimate Adequate Platelet Comment No clumping noted Anisocytosis 1+ Microcytosis 1+ POC Glucometer 199 322 11/04/16 11/05/16 21:45 06:08 WBC RBC Hgb Hct MCV MCH MCHC RDW Plt Count MPV Neutrophils % Lymphocytes % Monocytes % Band Neutrophils Metamyelocytes Platelet Estimate Platelet Comment Anisocytosis Microcytosis POC Glucometer 352 228 A/P Metastatic Cervical Cancer with multiple lung mets Asthma/COPD CAD DM h/o DVT - Albuterol HFA TID / nebs PRN - Lasix - inhaled bronchodilators - Asmanex - on chronic prednisone, megace - singulair - continue LMWH - O2 to keep SpO2 >90% Dr Gibbons
[2016-11-05] MEDS: FUROSEMIDE 40 MG/4 ML INJECTABLE VIAL IVPUSH SCH ×2 (10:47→17:21)
[2016-11-05] MEDS: MEGESTROL ACETATE 40 MG TABLET PO SCH ×2 (10:47→23:15)
[2016-11-05] MEDS: RANITIDINE HCL 150 MG TABLET (FP) PO SCH ×2 (10:47→22:01)
[2016-11-05] MEDS: MINERAL OIL/PETROLAT/WATER TOPICAL CREAM 113 GM JAR TP SCH (10:48)
[2016-11-05] MEDS: predniSONE 5 MG TABLET (UD) PO SCH (10:48)
[2016-11-05] MEDS: MOMETASONE FUROATE 220 MCG/IH INHALER IH SCH ×2 (10:48→22:01)
[2016-11-05] MEDS: ENOXAPARIN NA (PORCINE) 80 MG/0.8 ML DISP.SYRIN SQ SCH ×2 (10:48→22:01)
[2016-11-05] MEDS: ALPRAZolam 0.25 MG TABLET PO PRN ×2 (11:14→19:02)
--- NOTE | 2016-11-05 17:08 | PN ---
Teaching Attending Note Name of Resident: Mark Walter ATTENDING PHYSICIAN STATEMENT I saw and evaluated the patient. I reviewed the resident's note and discussed the case with the resident. I agree with the resident's findings and plan as documented. SUBJECTIVE: Patient is feeling better, continues to wheeze, shortness of breath is improving. OBJECTIVE: Vital Signs Temperature 98.4 F 11/05/16 14:55 Pulse Rate 88 11/05/16 14:55 Respiratory Rate 18 11/05/16 14:55 Blood Pressure 150/66 11/05/16 14:55 O2 Sat by Pulse Oximetry (%) 99 11/05/16 11:11 CBCD WBC 8.9 K/mm3 (4.0-10.0) 11/04/16 06:10 RBC 3.56 M/mm3 (3.60-5.2) L 11/04/16 06:10 Hgb 9.5 GM/dL (10.7-15.3) L 11/04/16 06:10 Hct 28.7 % (32.4-45.2) L 11/04/16 06:10 MCV 80.8 fl (80-96) 11/04/16 06:10 MCHC 33.0 g/dl (32.0-36.0) 11/04/16 06:10 RDW 18.9 % (11.6-15.6) H 11/04/16 06:10 Plt Count 232 K/MM3 (134-434) 11/04/16 06:10 MPV 7.8 fl (7.5-11.1) 11/04/16 06:10 CMP Sodium 141 mmol/L (136-145) 11/04/16 06:10 Potassium 4.1 mmol/L (3.5-5.1) 11/04/16 06:10 Chloride 103 mmol/L (98-107) 11/04/16 06:10 Carbon Dioxide 31 mmol/L (21-32) 11/04/16 06:10 Anion Gap 7 (8-16) L 11/04/16 06:10 BUN 11 mg/dL (7-18) D 11/04/16 06:10 Creatinine 0.9 mg/dL (0.55-1.02) 11/04/16 06:10 Creat Clearance w eGFR > 60 (>60) 11/04/16 06:10 Random Glucose 113 mg/dL (74-106) H D 11/04/16 06:10 Calcium 8.4 mg/dL (8.5-10.1) L 11/04/16 06:10 Total Bilirubin 0.2 mg/dL (0.2-1.0) D 11/04/16 06:10 AST 20 U/L (15-37) D 11/04/16 06:10 ALT 24 U/L (12-78) D 11/04/16 06:10 Alkaline Phosphatase 86 U/L (45-117) 11/04/16 06:10 Total Protein 6.2 g/dl (6.4-8.2) L 11/04/16 06:10 Albumin 2.7 g/dl (3.4-5.0) L 11/04/16 06:10 CARDIAC ENZYMES Troponin I < 0.02 ng/ml (0.00-0.05) 10/29/16 10:23 Current Medications Generic Name Dose Route Start Last Admin Trade Name Freq PRN Reason Stop Dose Admin Albuterol Sulfate 1 amp 10/29/16 14:18 11/04/16 13:25 Ventolin 0.083% Nebulizer Soln - NEB 1 amp Q4H PRN Administration SHORT OF BREATH/WHEEZING Albuterol Sulfate 2 puff 11/03/16 14:00 11/05/16 13:58 Ventolin Hfa Inhaler - IH 2 puff TID [facility] Administration Alprazolam 0.5 mg 11/05/16 06:57 11/05/16 11:14 Xanax - PO 0.5 mg Q8H PRN Administration ANXIETY Cephalexin HCl 500 mg 11/02/16 12:00 11/05/16 11:15 Keflex - PO 500 mg Q6HPO [facility] Administration Enoxaparin Sodium 80 mg 10/31/16 10:45 11/05/16 10:48 Lovenox - SQ 80 mg Q12H [facility] Administration Furosemide 40 mg 11/05/16 15:00 Lasix - PO DAILY [facility] Insulin Aspart 0 vial 10/29/16 16:30 11/05/16 11:34 Novolog Vial Sliding Scale - SQ Not Given [facility] Protocol Insulin Detemir 40 units 10/29/16 22:00 11/05/16 06:29 Levemir Vial SQ 40 unit BID@0700,2200 [facility] Administration Levothyroxine Sodium 112 mcg 10/31/16 07:00 11/05/16 06:28 Synthroid - PO 112 mcg DAILY@0700 [facility] Administration Megestrol Acetate 80 mg 10/29/16 22:00 11/05/16 10:47 Megace - PO 80 mg BID [facility] Administration Mometasone Furoate 1 puff 11/01/16 11:00 11/05/16 10:48 Asmanex 220mcg - IH 1 puff BID [facility] Administration Montelukast Sodium 10 mg 10/29/16 22:00 11/04/16 22:24 Singulair - PO 10 mg HS [facility] Administration Multi-Ingredient Lotion 1 applic 11/01/16 11:00 11/05/16 10:48 Eucerin (Small Jar) - TP 1 applic DAILY [facility] Administration Nystatin 500,000 units 10/29/16 18:00 11/05/16 11:15 Nystatin Oral Suspension - PO 500,000 units Q6HPO [facility] Administration Ondansetron HCl 4 mg 10/29/16 14:57 10/30/16 20:02 Zofran Injection IVPUSH 4 mg Q6H PRN Administration NAUSEA AND/OR VOMITING Oxycodone HCl 10 mg 11/05/16 08:35 11/05/16 11:14 Roxicodone - PO 10 mg Q8H PRN Administration PAIN Prednisone 10 mg 10/30/16 10:00 11/05/16 10:48 Deltasone - PO 10 mg DAILY [facility] Administration Ranitidine HCl 150 mg 11/04/16 22:00 11/05/16 10:47 Zantac - PO 150 mg BID [facility] Administration Home Medications Medication Instructions Recorded Albuterol Sulfate Inhaler - 2 inh PO Q6H 08/30/16 [Ventolin HFA Inhaler -] Alprazolam [Xanax] 0.25 mg PO Q6H 08/30/16 Aspirin [ASA -] 81 mg PO DAILY 08/30/16 Cholecalciferol (Vitamin D3) 1,000 unit PO Q7D 08/30/16 [Vitamin D -] Furosemide [Lasix] 20 mg PO DAILY 08/30/16 Levothyroxine [Synthroid -] 100 mcg PO DAILY 08/30/16 Megestrol Acetate 80 mg PO BID 08/30/16 Montelukast Na [Singulair -] 10 mg PO HS 08/30/16 Ondansetron [Zofran -] 4 mg PO BID PRN 08/30/16 Oxycodone HCl 15 mg PO TID PRN 08/30/16 Atorvastatin Ca [Lipitor] 10 mg PO HS 10/29/16 Budesonide/Formeterol Fumarate 1 inh PO BID 10/29/16 [SYMBICORT 160/4.5mcg -] Insulin Aspart [Novolog] 10 unit SQ TID 10/29/16 Insulin Glargine,Hum.rec.anlog 40 units SQ BID 10/29/16 [Lantus (nf)] Lisinopril 10 mg PO DAILY 10/29/16 Prednisone [Deltasone -] 20 mg PO BID 10/29/16 Prochlorperazine Maleate 5 mg PO PRN 10/29/16 Ranitidine [Zantac -] 300 mg PO ONCE 10/29/16 Sertraline HCl 25 mg PO DAILY 10/29/16 PE: Chest: positive for wheezing, GAIEBL Lower extremities: Bl mild erythema improving Rest of PE as per resident's note. ASSESSMENT AND PLAN: 66yo F wtih PMH cervical cancer with lung mets on chemo, hypothyroid, CAD, DM and DVT presented to the ER with lethargy for several months. # Acute Cellulitis with edema of lower extremties L>R, improving on Cephalexin 500mg PO Q6H and added PO Lasix today ,will continue # Acute exacerbation of Asthma improving , on nebulizer treatments will continue , on po Prednisone 10mg continue ( she takes it on a regular basis at home), Singulair continue ,pulmonary consult appreciated. continue current therapy # Chronic Back pain on Oxycodone 10mg q6h continue # Anxiety disorder on Xanax 0.5mg q8h prn will continue (takes it at home) #Stage IV cervical CA, with lung mets was on RTX therapy. 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 # s/p ramon- resolved # IDDM sliding scale with coverage, levemir 40 bid # normocytic anemia- no signs of bleeding. stable # Hypomagnesemia/ hypophosphotemia repleted. DVT Px: Heparin sq possible discharge in am if stable discussed with the patient that if she stays stable will discharge her home in am
[2016-11-05] MEDS: FUROSEMIDE 40 MG TABLET (FP) PO SCH (17:20)
[2016-11-05] MEDS: MONTELUKAST NA 10 MG TABLET PO SCH (22:01)
[2016-11-05] MEDS ORDERED: INSULIN (NOVOLOG) ASPART 100 UNITS/ML 10ML VIAL ONE (22:05)
[2016-11-05] MEDS ORDERED: guaiFENesin 200 MG/10 ML 10 ML UNIT-DOSE CUPS PO ONE (22:37)
[2016-11-06] MEDS: ALPRAZolam 0.25 MG TABLET PO PRN ×3 (02:48→18:23)
[2016-11-06] MEDS: oxyCODONE HCL 5 MG TABLET PO PRN ×3 (02:49→18:23)
[2016-11-06] MEDS: LEVOTHYROXINE NA 112 MCG TABLET (FP) PO SCH (06:05)
[2016-11-06] MEDS: CEPHALEXIN MONOHYDRATE 500 MG CAPSULE (UD) PO SCH ×3 (06:06→18:18)
[2016-11-06] MEDS: ALBUTEROL SO4 6.7 GM HFA INHALER IH SCH ×2 (06:06→14:22)
[2016-11-06] MEDS: INSULIN DETEMIR 100 UNITS/ML MDV SQ SCH (06:06)
[2016-11-06] MEDS: NYSTATIN 500,000 UNITS/5 ML SUSPENSION PO SCH ×3 (06:06→18:18)
[2016-11-06] MEDS: INSULIN SLIDING SCALE (NOVOLOG) 1 VIAL SQ SCH ×2 (06:07→12:38)
[2016-11-06 07:55] LABS: MCH 26.7 pg (25.7-33.7); MCHC 32.9 g/dl (32.0-36.0); PLATELET COUNT 261 K/MM3 (134-434); RDW 18.6 % (11.6-15.6)
[2016-11-06 08:07] LABS: ANION GAP 9 (8-16); CALCIUM 8.6 mg/dL (8.5-10.1); CO2 28 mmol/L (21-32); CREATININE 1.1 mg/dL (0.55-1.02)
[2016-11-06 08:44] LABS: GLUCOSE,RANDOM 318 mg/dL (74-106)
[2016-11-06 09:10] LABS: PLATELET ESTIMATE ADEQUATE (NORMAL)
[2016-11-06] MEDS: ALBUTEROL SO4 0.083% IH SOL 2.5 MG/3 ML VIAL.NEB. NEB PRN ×2 (09:41→18:35)
--- NOTE | 2016-11-06 09:57 | PN ---
Progress Note (short form) - Note Progress Note: Still with some cough and wheezing, but continues to slowly/progressively improve. I suspect that at least part of her wheezing is due to fixed lung disease due to her metastasis. Overall much better than on admission. No CP. No acute events overnight. Intake & Output 11/03/16 11/04/16 11/05/16 11/06/16 23:59 23:59 23:59 23:59 Intake Total 930 420 390 150 Balance 930 420 390 150 Last Vital Signs Temp Pulse Resp BP Pulse Ox 98.9 F 88 20 158/78 99 11/06/16 06:00 11/06/16 09:41 11/06/16 06:00 11/06/16 06:00 11/06/16 09:41 Active Medications Albuterol Sulfate (Ventolin 0.083% Nebulizer Soln -) 1 amp NEB Q4H PRN PRN Reason: SHORT OF BREATH/WHEEZING Last Admin: 11/06/16 09:41 Dose: 1 amp Albuterol Sulfate (Ventolin Hfa Inhaler -) 2 puff IH TID [facility] Last Admin: 11/06/16 06:06 Dose: 2 puff Alprazolam (Xanax -) 0.5 mg PO Q8H PRN PRN Reason: ANXIETY Last Admin: 11/06/16 02:48 Dose: 0.5 mg Cephalexin HCl (Keflex -) 500 mg PO Q6HPO [facility] Last Admin: 11/06/16 06:06 Dose: 500 mg Enoxaparin Sodium (Lovenox -) 80 mg SQ Q12H [facility] Last Admin: 11/05/16 22:01 Dose: 80 mg Furosemide (Lasix -) 40 mg PO DAILY [facility] Last Admin: 11/05/16 17:20 Dose: 40 mg Insulin Aspart (Novolog Vial Sliding Scale -) 0 vial SQ ACHS [facility] PRN Reason: Protocol Last Admin: 11/06/16 06:07 Dose: 6 units Insulin Detemir (Levemir Vial) 40 units SQ BID@0700,2200 [facility] Last Admin: 11/06/16 06:06 Dose: 40 unit Levothyroxine Sodium (Synthroid -) 112 mcg PO DAILY@0700 [facility] Last Admin: 11/06/16 06:05 Dose: 112 mcg Megestrol Acetate (Megace -) 80 mg PO BID [facility] Last Admin: 11/05/16 23:15 Dose: 80 mg Mometasone Furoate (Asmanex 220mcg -) 1 puff IH BID [facility] Last Admin: 11/05/16 22:01 Dose: 1 puff Montelukast Sodium (Singulair -) 10 mg PO HS [facility] Last Admin: 11/05/16 22:01 Dose: 10 mg Multi-Ingredient Lotion (Eucerin (Small Jar) -) 1 applic TP DAILY [facility] Last Admin: 11/05/16 10:48 Dose: 1 applic Nystatin (Nystatin Oral Suspension -) 500,000 units PO Q6HPO [facility] Last Admin: 11/06/16 06:06 Dose: 500,000 units Ondansetron HCl (Zofran Injection) 4 mg IVPUSH Q6H PRN PRN Reason: NAUSEA AND/OR VOMITING Last Admin: 10/30/16 20:02 Dose: 4 mg Oxycodone HCl (Roxicodone -) 10 mg PO Q8H PRN PRN Reason: PAIN Last Admin: 11/06/16 02:49 Dose: 10 mg Prednisone (Deltasone -) 10 mg PO DAILY [facility] Last Admin: 11/05/16 10:48 Dose: 10 mg Ranitidine HCl (Zantac -) 150 mg PO BID [facility] Last Admin: 11/05/16 22:01 Dose: 150 mg Gen: cushingoid, Less tachypneic and more comfortable Heart: S1S2, regular Lung: scattered rhonchi and bilateral expiratory/inspiratory wheezes : improving overall Abd: soft, nontender Ext: + edema, distal erythema Laboratory Results - last 24 hr 11/05/16 11/05/16 11/05/16 11:20 17:15 22:00 WBC RBC Hgb Hct MCV MCH MCHC RDW Plt Count MPV Neutrophils % Lymphocytes % Monocytes % Basophils % Differential Comment Platelet Estimate Sodium Potassium Chloride Carbon Dioxide Anion Gap BUN Creatinine POC Glucometer 137 352 334 Random Glucose Calcium 11/06/16 11/06/16 11/06/16 06:00 06:00 06:05 WBC 9.0 RBC 3.76 Hgb 10.0 L Hct 30.4 L MCV 81.0 MCH 26.7 MCHC 32.9 RDW 18.6 H Plt Count 261 MPV 8.0 Neutrophils % 74.0 D Lymphocytes % 20.0 D Monocytes % 5.0 Basophils % 1.0 Differential Comment Manual diff done Platelet Estimate Adequate Sodium 137 Potassium 4.7 Chloride 100 Carbon Dioxide 28 Anion Gap 9 BUN 18 D Creatinine 1.1 H D POC Glucometer 292 Random Glucose 318 H* D Calcium 8.6 A/P Metastatic Cervical Cancer with multiple lung mets Asthma/COPD CAD DM h/o DVT - Albuterol HFA TID / nebs PRN - Lasix - inhaled bronchodilators - Asmanex - on chronic prednisone - singulair - continue LMWH - O2 to keep SpO2 >90% - Can add a LAMA/LABA combination inhaler on discharge - No Pulmonary contraindication for D/C planning Dr Gibbons
[2016-11-06] MEDS: predniSONE 5 MG TABLET (UD) PO SCH (11:25)
[2016-11-06] MEDS: MINERAL OIL/PETROLAT/WATER TOPICAL CREAM 113 GM JAR TP SCH (11:25)
[2016-11-06] MEDS: FUROSEMIDE 40 MG TABLET (FP) PO SCH (11:25)
[2016-11-06] MEDS: MOMETASONE FUROATE 220 MCG/IH INHALER IH SCH (11:25)
[2016-11-06] MEDS: ENOXAPARIN NA (PORCINE) 80 MG/0.8 ML DISP.SYRIN SQ SCH (11:25)
[2016-11-06] MEDS: MEGESTROL ACETATE 40 MG TABLET PO SCH (11:26)
[2016-11-06] MEDS: RANITIDINE HCL 150 MG TABLET (FP) PO SCH (11:26)
[2016-11-06 14:12] VITALS: BP 120/60; PULSE 88; TEMP 99
--- NOTE | 2016-11-06 15:08 | PN ---
Teaching Attending Note Name of Resident: Mark Walter ATTENDING PHYSICIAN STATEMENT I saw and evaluated the patient. I reviewed the resident's note and discussed the case with the resident. I agree with the resident's findings and plan as documented. SUBJECTIVE: Patient is feeling better, she is at her baseline. OBJECTIVE: Vital Signs Temperature 99.0 F 11/06/16 14:09 Pulse Rate 88 11/06/16 14:09 Respiratory Rate 16 11/06/16 14:09 Blood Pressure 120/60 11/06/16 14:09 O2 Sat by Pulse Oximetry (%) 99 11/06/16 09:41 CBCD WBC 9.0 K/mm3 (4.0-10.0) 11/06/16 06:00 RBC 3.76 M/mm3 (3.60-5.2) 11/06/16 06:00 Hgb 10.0 GM/dL (10.7-15.3) L 11/06/16 06:00 Hct 30.4 % (32.4-45.2) L 11/06/16 06:00 MCV 81.0 fl (80-96) 11/06/16 06:00 MCHC 32.9 g/dl (32.0-36.0) 11/06/16 06:00 RDW 18.6 % (11.6-15.6) H 11/06/16 06:00 Plt Count 261 K/MM3 (134-434) 11/06/16 06:00 MPV 8.0 fl (7.5-11.1) 11/06/16 06:00 CMP Sodium 137 mmol/L (136-145) 11/06/16 06:00 Potassium 4.7 mmol/L (3.5-5.1) 11/06/16 06:00 Chloride 100 mmol/L (98-107) 11/06/16 06:00 Carbon Dioxide 28 mmol/L (21-32) 11/06/16 06:00 Anion Gap 9 (8-16) 11/06/16 06:00 BUN 18 mg/dL (7-18) D 11/06/16 06:00 Creatinine 1.1 mg/dL (0.55-1.02) H D 11/06/16 06:00 Creat Clearance w eGFR > 60 (>60) 11/04/16 06:10 Random Glucose 318 mg/dL (74-106) H* D 11/06/16 06:00 Calcium 8.6 mg/dL (8.5-10.1) 11/06/16 06:00 Total Bilirubin 0.2 mg/dL (0.2-1.0) D 11/04/16 06:10 AST 20 U/L (15-37) D 11/04/16 06:10 ALT 24 U/L (12-78) D 11/04/16 06:10 Alkaline Phosphatase 86 U/L (45-117) 11/04/16 06:10 Total Protein 6.2 g/dl (6.4-8.2) L 11/04/16 06:10 Albumin 2.7 g/dl (3.4-5.0) L 11/04/16 06:10 CARDIAC ENZYMES Troponin I < 0.02 ng/ml (0.00-0.05) 10/29/16 10:23 Home Medications Medication Instructions Recorded Aspirin [ASA -] 81 mg PO DAILY 08/30/16 Cholecalciferol (Vitamin D3) 1,000 unit PO Q7D 08/30/16 [Vitamin D -] Megestrol Acetate 80 mg PO BID 08/30/16 Montelukast Na [Singulair -] 10 mg PO HS 08/30/16 Oxycodone HCl 15 mg PO TID PRN 08/30/16 Atorvastatin Ca [Lipitor] 10 mg PO HS 10/29/16 Budesonide/Formeterol Fumarate 1 inh PO BID 10/29/16 [SYMBICORT 160/4.5mcg -] Insulin Aspart [Novolog] 10 unit SQ TID 10/29/16 Insulin Glargine,Hum.rec.anlog 40 units SQ BID 10/29/16 [Lantus (10mL VIAL) -] Lisinopril 10 mg PO DAILY 10/29/16 Prochlorperazine Maleate 5 mg PO PRN 10/29/16 Ranitidine [Zantac -] 300 mg PO ONCE 10/29/16 Sertraline HCl 25 mg PO DAILY 10/29/16 Albuterol 0.083% Nebulizer Kandace 1 amp NEB Q6H PRN #25 amp 11/06/16 [Ventolin 0.083% Nebulizer Soln -] Albuterol Sulfate Inhaler - 2 inh PO Q6H #1 inh 11/06/16 [Ventolin HFA Inhaler -] Cephalexin [Keflex] 500 mg PO Q6H #9 capsule 11/06/16 Furosemide [Lasix -] 40 mg PO DAILY #30 tablet 11/06/16 Guaifenesin AC [Robitussin AC -] 5 ml PO HS PRN #60 ml MDD 1 11/06/16 Levothyroxine [Synthroid -] 112 mcg PO DAILY@0700 #30 tablet 11/06/16 Nebulizer/Compressor [Comp-Air 1 each MC ASDIR #1 each 11/06/16 Elite Comp System] Prednisone [Deltasone -] 20 mg PO DAILY #7 tab 11/06/16 Microbiology 10/29/16 10:23 Urine - Urine Clean Catch Urine Culture - Final NO GROWTH OBTAINED PE: Chest: mild wheezing, GAIEBL Lower extremities: Bl mild erythema improved Rest of PE as per resident's note. ASSESSMENT AND PLAN: 66yo F wtih PMH cervical cancer with lung mets on chemo, hypothyroid, CAD, DM and DVT presented to the ER with lethargy for several months. # Acute Cellulitis with edema of lower extremties L>R, improved on Cephalexin 500mg PO Q6H given prescription to complete the course of antibiotic as an outpatient. Also added PO Lasix to continue. # Acute exacerbation of Asthma improved will continue nebulizer treatments at home, continue Prednisone 10mg ( she takes it on a regular basis at home), Singulair continue ,pulmonary discussed with patient can be discharged home and be followed with rubber press tender as an outpatient. # Chronic Back pain on Oxycodone 10mg q6h continue # Anxiety disorder on Xanax 0.5mg q8h prn will continue (takes it at home) #Stage IV cervical CA, with lung mets was on RTX therapy. 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 stable # Hypomagnesemia/ hypophosphotemia repleted. Discharge patient home today , stable to go home. Patient was told yesterday that she might be going home in am if stable discussed with the patient that if she stays stable will discharge her home in am. Patient was stable to go home. Ordered all the meds for her and nebulizer for home. will follow with her oncologist and rubber press tender within a week period.
--- NOTE | 2016-11-06 16:06 | DS ---
Physical Exam: SUBJECTIVE: Patient seen and examined at bedside. No complaints at this time. Breathing is much better. Pt feels she is at her baseline. Pt denies headache, cp, abd pain, nausea, vomiting, diarrhea, dysuria. OBJECTIVE: Vital Signs Period Temp Pulse Resp BP Sys/Encarnacion Pulse Ox Last 24 Hr 98.5 F-99.0 F 86-92 16-20 120-158/60-81 99-100 PHYSICAL EXAM GENERAL: cushingoid. The patient is awake, alert, and fully oriented, in no acute distress. HEAD: Normal with no signs of trauma. EYES: sclera anicteric, conjunctiva clear. ENT: oropharynx clear without exudates, moist mucous membranes. NECK: Trachea midline, full range of motion, supple. LUNGS: Breath sounds equal, clear to auscultation bilaterally, wheezing in the upper posterior lung reese, no crackles, no accessory muscle use. HEART: Regular rate and rhythm, normal S1, S2 without murmur, rub or gallop. ABDOMEN: Soft, nontender, nondistended, normoactive bowel sounds, no guarding, no rebound, no hepatosplenomegaly, no masses. EXTREMITIES: 2+ pulses, warm, well-perfused, 1+ edema. NEUROLOGICAL: Cranial nerves II through XII grossly intact. Normal speech, gait not observed. PSYCH: Normal mood, normal affect. SKIN: Warm, dry, normal turgor, no rashes or lesions noted. LABS Laboratory Results - last 24 hr 11/05/16 11/05/16 11/05/16 11:20 17:15 22:00 WBC RBC Hgb Hct MCV MCH MCHC RDW Plt Count MPV Neutrophils % Lymphocytes % Monocytes % Basophils % Differential Comment Platelet Estimate Sodium Potassium Chloride Carbon Dioxide Anion Gap BUN Creatinine POC Glucometer 137 352 334 Random Glucose Calcium 11/06/16 11/06/16 11/06/16 06:00 06:00 06:05 WBC 9.0 RBC 3.76 Hgb 10.0 L Hct 30.4 L MCV 81.0 MCH 26.7 MCHC 32.9 RDW 18.6 H Plt Count 261 MPV 8.0 Neutrophils % 74.0 D Lymphocytes % 20.0 D Monocytes % 5.0 Basophils % 1.0 Differential Comment Manual diff done Platelet Estimate Adequate Sodium 137 Potassium 4.7 Chloride 100 Carbon Dioxide 28 Anion Gap 9 BUN 18 D Creatinine 1.1 H D POC Glucometer 292 Random Glucose 318 H* D Calcium 8.6 11/06/16 11:30 WBC RBC Hgb Hct MCV MCH MCHC RDW Plt Count MPV Neutrophils % Lymphocytes % Monocytes % Basophils % Differential Comment Platelet Estimate Sodium Potassium Chloride Carbon Dioxide Anion Gap BUN Creatinine POC Glucometer 309 Random Glucose Calcium HOSPITAL COURSE: Date of Admission:10/31/16 Date of Discharge: 11/06/16 #Acute on Chronic Asthma Exacerbation The patient has a history of chronic asthma secondary to lung metastases of cervical CA. Expiratory wheezes were noted on admission. The patient was continued on 3L of O2, 10mg Prednisone, and Albuterol Neb TID RAFA from home medications. Albuterol Neb Q4 PRN was added to aid with asthmatic exarcerbations. Dr Julien and Dr Souza from Pulmonology were consulted and their recommendations were appreciated. Asmanex 220mcg was added per Dr Souza. The patient's breathing has since improved and wheezing has noticeably decreased, although still present. #Cellulitis The patient presented with erythema and changes consistent with cellulitis of lower legs bilaterally on 11/02/2016. The patient was started on Cephalexin 500mg PO Q6H and Eucerin topical cream. The cellulitic changes have improved considerably. #Volume Overload The patient was administered IVF upon admission in response to the significant lethargy and relative hypotension. Her baseline SBP ranges from 130-140, but ranged from 99-111 on admission. The home medication of Lasix 20mg was withheld and administered IVF. On 10/31/2016, the physical exam was significant for bilateral pitting edema in the lower extremities and bilateral audible crackles in the lung bases on auscultation. IVF were withheld and Lasix 20mg IV was resumed and then changed to 40mg PO daily. Chest X-ray was not significant for infiltrate. The lung crackles are no longer present, and pitting edema has improved. #Lethargy and Malaise The patient was initially admitted for significant lethargy and malaise that had progressively worsened over the past two months. The patient has a history of hypothyroidism, so her TSH level was tested and found to be elevated at 7.17. Her home medication of Synthroid was increased from 100mcg to 112mcg. She has been advised to have her primary care physician retest her TSH five weeks after discharge. #Acute on chronic microcytic anemia On admission, CBC studies revealed that the patient had microcytic anemia, most likely secondary to chronic disease. GI bleed was ruled out by a negative stool occult blood test. Iron studies were conducted throughout the patient's admission. The patient's hemoglobin levels dropped from 11.9 to 10.3 over the past month, and has now stabilized around 9.2, most likely due to dilution by IVF. After IVF were held in response to volume overload, her hemoglobin has risen back to 10.0. #Other - Stage IV cervical CA with lung metastases - continued PO chemotherapy regimen per oncologist; Chest X-ray showed slight increase in nodule size since last imaging on 08/30/2016 - History of DVT - administered Lovenox 80mg SQ Q12H as prophylaxis - History of CAD - aspirin was withheld - History of IDDM - controlled with Levemir 40 units BID with Novolog sliding scale - History of HLD - controlled with diet - History of chronic back pain - maintained home medications of Oxycodone 10mg TID PRN - History of anxiety - maintained home medications of Xanex 0.5mg Q8H PRN -Brian Fam MS3 -Mark Walter MD PGY-1 Minutes to complete discharge: 45 <Mark Walter - Last Filed: 11/07/16 18:46> Physical Exam: HOSPITAL COURSE: Date of Admission:10/31/16 Date of Discharge: 11/09/16 Patient was on Lovenox 80mg q12h at home. Was on hold on admission since patient was going to have a Cataract surgery. was re-started in the hospital since was not having surgery in hospital and to continue at home if not having surgery. If she is having surgery or not, was suggested to follow the mergers and acquisitions consultant's recommendation, whether to continue Lovenox or not. <Genoveva Albert - Last Filed: 11/09/16 22:32> Discharge Summary Reason For Visit: DEHYDRATON; LETHARGY Current Active Problems Acute asthma exacerbation (Acute) Systemic inflammatory response syndrome (SIRS) (Acute) Cellulitis of left leg (Chronic) Cellulitis of right lower extremity (Chronic) Cervical cancer (Chronic) Cervical carcinoma (Chronic) Pulmonary emboli (Chronic) - Home Medications Comprehensive Discharge Medication List: Ambulatory Orders Aspirin [ASA -] 81 mg PO DAILY 08/30/16 Cholecalciferol (Vitamin D3) [Vitamin D -] 1,000 unit PO Q7D 08/30/16 Megestrol Acetate 80 mg PO BID 08/30/16 Montelukast Na [Singulair -] 10 mg PO HS 08/30/16 Oxycodone HCl 15 mg PO TID PRN 08/30/16 Atorvastatin Ca [Lipitor] 10 mg PO HS 10/29/16 Budesonide/Formeterol Fumarate [SYMBICORT 160/4.5mcg -] 1 inh PO BID 10/29/16 Insulin Aspart [Novolog] 10 unit SQ TID 10/29/16 Insulin Glargine,Hum.rec.anlog [Lantus (10mL VIAL) -] 40 units SQ BID 10/29/16 Lisinopril 10 mg PO DAILY 10/29/16 Prochlorperazine Maleate 5 mg PO PRN 10/29/16 Ranitidine [Zantac -] 300 mg PO ONCE 10/29/16 Sertraline HCl 25 mg PO DAILY 10/29/16 Albuterol 0.083% Nebulizer Kandace [Ventolin 0.083% Nebulizer Soln -] 1 amp NEB Q6H PRN #25 amp 11/06/16 Albuterol Sulfate Inhaler - [Ventolin HFA Inhaler -] 2 inh PO Q6H #1 inh Cephalexin [Keflex] 500 mg PO Q6H #9 capsule 11/06/16 Furosemide [Lasix -] 40 mg PO DAILY #30 tablet 11/06/16 Guaifenesin AC [Robitussin AC -] 5 ml PO HS PRN #60 ml MDD 1 11/06/16 Levothyroxine [Synthroid -] 112 mcg PO DAILY@0700 #30 tablet 11/06/16 Nebulizer/Compressor [Comp-Air Elite Comp System] 1 each ASDIR #1 each Prednisone [Deltasone -] 20 mg PO DAILY #7 tab 11/06/16 <Mark Walter - Last Filed: 11/07/16 18:46> Current Active Problems Acute asthma exacerbation (Acute) Systemic inflammatory response syndrome (SIRS) (Acute) Cellulitis of left leg (Chronic) Cellulitis of right lower extremity (Chronic) Cervical cancer (Chronic) Cervical carcinoma (Chronic) Pulmonary emboli (Chronic) - Home Medications Comprehensive Discharge Medication List: Ambulatory Orders Aspirin [ASA -] 81 mg PO DAILY 08/30/16 Cholecalciferol (Vitamin D3) [Vitamin D -] 1,000 unit PO Q7D 08/30/16 Megestrol Acetate 80 mg PO BID 08/30/16 Montelukast Na [Singulair -] 10 mg PO HS 08/30/16 Oxycodone HCl 15 mg PO TID PRN 08/30/16 Atorvastatin Ca [Lipitor] 10 mg PO HS 10/29/16 Budesonide/Formeterol Fumarate [SYMBICORT 160/4.5mcg -] 1 inh PO BID 10/29/16 Insulin Aspart [Novolog] 10 unit SQ TID 10/29/16 Insulin Glargine,Hum.rec.anlog [Lantus (10mL VIAL) -] 40 units SQ BID 10/29/16 Lisinopril 10 mg PO DAILY 10/29/16 Prochlorperazine Maleate 5 mg PO PRN 10/29/16 Ranitidine [Zantac -] 300 mg PO ONCE 10/29/16 Sertraline HCl 25 mg PO DAILY 10/29/16 Albuterol 0.083% Nebulizer Knadace [Ventolin 0.083% Nebulizer Soln -] 1 amp NEB Q6H PRN #25 amp 11/06/16 Albuterol Sulfate Inhaler - [Ventolin HFA Inhaler -] 2 inh PO Q6H #1 inh Cephalexin [Keflex] 500 mg PO Q6H #9 capsule 11/06/16 Furosemide [Lasix -] 40 mg PO DAILY #30 tablet 11/06/16 Guaifenesin AC [Robitussin AC -] 5 ml PO HS PRN #60 ml MDD 1 11/06/16 Levothyroxine [Synthroid -] 112 mcg PO DAILY@0700 #30 tablet 11/06/16 Nebulizer/Compressor [Comp-Air Elite Comp System] 1 each ASDIR #1 each Prednisone [Deltasone -] 20 mg PO DAILY #7 tab 11/06/16 <Genoveva Albert - Last Filed: 11/09/16 22:32> Condition: Stable - Instructions Diet, Activity, Other Instructions: You were admitted to the hospital for difficulty breathing. You were seen by the pulmonologists. You received several breathing treatments which helped improve your breathing. You also were found to have some redness on your legs. You were given antibiotics for cellulitis. You are being sent home with several medications and doctors' appointments. Please make sure you take all your medications as directed, and make sure you follow up with all your doctor's appointments. Please take the following medications as directed: Keflex by mouth every 6 hours Prednisone 20mg by mouth daily for 7 days. Then, take prednisone 10mg by mouth daily. combination inhaler Referrals: Brock Julien MD [Staff Physician] - 1 Week Zahida Bran MD [Primary Care Provider] - 1 Week Disposition: HOME This patient is new to me today: No Emergency Visit: No Critical Care patient: No - Discharge Referral Referred to [facility] No <Mark Walter - Last Filed: 11/07/16 18:46>
[2016-11-06] MEDS ORDERED: PT OWN MED DRAWER 7, Y5N ONE (18:39)
[2016-11-06] MEDS ORDERED: INSULIN SLIDING SCALE (NOVOLOG) 1 VIAL SQ SCH (22:00)
== END 2016-11-06 19:58 | disposition home or self-care (01) | DRG 181 ==
LOC: JER 08:59 → UNDOADMOB 13:21 → JERBED 13:21 → INTOOBSV 13:21 → J7W 14:18 → JERBED 14:30 → OBSVTOIN 10-31 10:38
PROVIDERS: ADMIT Internal Medicine; ATTEND Internal Medicine
DX: C78.00 Secondary malignant neoplasm of unspecified lung (principal); J45.901 Unspecified asthma with (acute) exacerbation; N17.9 Acute kidney failure, unspecified; L03.116 Cellulitis of left lower limb; L03.115 Cellulitis of right lower limb; E24.2 Drug-induced Cushing's syndrome; C53.9 Malignant neoplasm of cervix uteri, unspecified; D63.8 Anemia in other chronic diseases classified elsewhere; E11.9 Type 2 diabetes mellitus without complications; Z79.4 Long term (current) use of insulin; E78.5 Hyperlipidemia, unspecified; F41.9 Anxiety disorder, unspecified; Z86.718 Personal history of other venous thrombosis and embolism; Z79.01 Long term (current) use of anticoagulants; I25.10 Atherosclerotic heart disease of native coronary artery without angina pectoris; E03.9 Hypothyroidism, unspecified; G89.29 Other chronic pain; M54.9 Dorsalgia, unspecified; Z89.421 Acquired absence of other right toe(s); Z95.1 Presence of aortocoronary bypass graft; I95.9 Hypotension, unspecified; H53.8 Other visual disturbances; B37.9 Candidiasis, unspecified; R53.83 Other fatigue; E66.9 Obesity, unspecified; Z68.37 Body mass index [BMI] 37.0-37.9, adult; Z71.3 Dietary counseling and surveillance; E86.0 Dehydration; E83.42 Hypomagnesemia; E83.39 Other disorders of phosphorus metabolism; R62.7 Adult failure to thrive; E11.42 Type 2 diabetes mellitus with diabetic polyneuropathy; T38.0X5A Adverse effect of glucocorticoids and synthetic analogues, initial encounter; R31.9 Hematuria, unspecified
CPT/HCPCS: 36415; 70450-TC; 71010-TC; 76775-TC; 80048; 80053; 81003; 81015; 82436; 82570; 82728; 83036; 83540; 83735; 84100; 84133; 84146; 84300; 84305; 84439; 84443; 84466; 84481; 84484; 85025; 85027; 87086; 87205; 93005; 93010; 94640; 97116-GP; 97161-GP; 99285-25; G0378; J8999

== ENCOUNTER 2016-11-20 17:14 | Inpatient (IN) | payer OTHER ==
[2016-11-20 17:32] VITALS: BMI 37.0
[2016-11-20 20:51] LABS: VENOUS PH 7.4 (7.32-7.42)
[2016-11-20 21:16] LABS: MCHC 32.2 g/dl (32.0-36.0); MEAN CELL VOLUME 80.6 fl (80-96); PLATELET COUNT 327 K/MM3 (134-434); RDW 17.9 % (11.6-15.6); WHITE BLOOD COUNT 20.1 K/mm3 (4.0-10.0)
[2016-11-20 21:27] LABS: INR 0.96 (0.82-1.09); PROTHROMBIN TIME (PATIENT) 10.6 SEC (9.98-11.88)
[2016-11-20] MEDS ORDERED: ALBUTEROL SO4 2.5/IPRATROPIUM 0.5 INH SOL 3 ML VIAL.NEB. NEB ONE ×2 (21:33→21:48)
[2016-11-20 21:56] LABS: ALBUMIN 3.2 g/dl (3.4-5.0); ANION GAP 4 (8-16); CALCIUM 9.3 mg/dL (8.5-10.1); CO2 33 mmol/L (21-32); GLUCOSE,RANDOM 97 mg/dL (74-106)
[2016-11-20 22:03] LABS: ALK PHOS 107 U/L (45-117); BILIRUBIN,TOTAL 0.4 mg/dL (0.2-1.0); CPK 120 IU/L (26-192); SGOT/AST 20 U/L (15-37); SGPT/ALT 27 U/L (12-78); TOT PROT 6.9 g/dl (6.4-8.2); TROPONIN I < 0.02 ng/ml (0.00-0.05)
[2016-11-20] MEDS ORDERED: ACETAMINOPHEN 1000 MG/100 ML VIAL (NON FORMULARY) IVPB ONE (22:25)
[2016-11-20] MEDS ORDERED: ACETAMINOPHEN INJECTION 100 ML IVPB ONE (22:29)
[2016-11-20] MEDS ORDERED: oxyCODONE HCL 5 MG TABLET PO ONE (23:21)
[2016-11-20] MEDS ORDERED: SODIUM CHLORIDE 0.9% 1000 ML INFUS.BAG IV ONE (23:23)
[2016-11-20] MEDS ORDERED: MAGNESIUM SULF 50% (8.12 MEQ/2 ML-1 GM VIAL) IVPB ONE (23:28)
[2016-11-20] MEDS ORDERED: oxyCODONE HCL 5 MG TABLET ONE (23:29)
--- NOTE | 2016-11-20 23:55 | PN ---
Teaching Attending Note Name of Resident: Diamond Mora ATTENDING PHYSICIAN STATEMENT I saw and evaluated the patient. I reviewed the resident's note and discussed the case with the resident. I agree with the resident's findings and plan as documented. SUBJECTIVE: 66 F with Pmhx of Cervical CA with lung metasisis (on oral chemo), HTN, HLD, IDDM, Asthma, COPD, hypothyriodism, DVT/PE who presents with cough, shortness of breath and pain in her throat. Symptoms are of 1 day duration. Pt. is otherwise a poor historian and was unable to go into further detail. OBJECTIVE: Physical: VS: Vital Signs Period Temp Pulse Resp BP Sys/Encarnacion Pulse Ox Last 24 Hr 98.5 F 90-97 20-24 141-179/63-77 97-100 GEN: NAD, resting in bed HEENT:NCAT, PERRL CARD: RRR S1, S2 RESP: Bilateral coarse expiratory wheezing ABD: BS X4, NTD to palpation EXT: +2 Pitting Edema bilateral and equal CBCD WBC 20.1 K/mm3 (4.0-10.0) H D 11/20/16 20:20 RBC 4.74 M/mm3 (3.60-5.2) D 11/20/16 20:20 Hgb 12.3 GM/dL (10.7-15.3) D 11/20/16 20:20 Hct 38.2 % (32.4-45.2) D 11/20/16 20:20 MCV 80.6 fl (80-96) 11/20/16 20:20 MCHC 32.2 g/dl (32.0-36.0) 11/20/16 20:20 RDW 17.9 % (11.6-15.6) H 11/20/16 20:20 Plt Count 327 K/MM3 (134-434) D 11/20/16 20:20 MPV 9.0 fl (7.5-11.1) D 11/20/16 20:20 CMP Sodium 136 mmol/L (136-145) 11/20/16 20:20 Potassium 5.1 mmol/L (3.5-5.1) 11/20/16 20:20 Chloride 99 mmol/L (98-107) 11/20/16 20:20 Carbon Dioxide 33 mmol/L (21-32) H 11/20/16 20:20 Anion Gap 4 (8-16) L 11/20/16 20:20 BUN 27 mg/dL (7-18) H D 11/20/16 20:20 Creatinine 1.0 mg/dL (0.55-1.02) 11/20/16 20:20 Creat Clearance w eGFR 55.64 (>60) 11/20/16 20:20 Random Glucose 97 mg/dL (74-106) D 11/20/16 20:20 Calcium 9.3 mg/dL (8.5-10.1) 11/20/16 20:20 Total Bilirubin 0.4 mg/dL (0.2-1.0) D 11/20/16 20:20 AST 20 U/L (15-37) 11/20/16 20:20 ALT 27 U/L (12-78) 11/20/16 20:20 Alkaline Phosphatase 107 U/L (45-117) D 11/20/16 20:20 Total Protein 6.9 g/dl (6.4-8.2) 11/20/16 20:20 Albumin 3.2 g/dl (3.4-5.0) L 11/20/16 20:20 CARDIAC ENZYMES Creatine Kinase 120 IU/L (26-192) 11/20/16 20:20 Troponin I < 0.02 ng/ml (0.00-0.05) 11/20/16 20:20 CXR: Bilateral Pulmonary Masses EKG:NSR no acute St-T changes Home Medications Medication Instructions Recorded Aspirin [ASA -] 81 mg PO DAILY 08/30/16 Cholecalciferol (Vitamin D3) 1,000 unit PO Q7D 08/30/16 [Vitamin D -] Megestrol Acetate 80 mg PO BID 08/30/16 Montelukast Na [Singulair -] 10 mg PO HS 08/30/16 Oxycodone HCl 15 mg PO TID PRN 08/30/16 Atorvastatin Ca [Lipitor] 10 mg PO HS 10/29/16 Budesonide/Formeterol Fumarate 1 inh PO BID 10/29/16 [SYMBICORT 160/4.5mcg -] Insulin Aspart [Novolog] 10 unit SQ TID 10/29/16 Insulin Glargine,Hum.rec.anlog 40 units SQ BID 10/29/16 [Lantus (10mL VIAL) -] Lisinopril 10 mg PO DAILY 10/29/16 Prochlorperazine Maleate 5 mg PO PRN 10/29/16 Ranitidine [Zantac -] 300 mg PO ONCE 10/29/16 Sertraline HCl 25 mg PO DAILY 10/29/16 Albuterol 0.083% Nebulizer Kandace 1 amp NEB Q6H PRN #25 amp 11/06/16 [Ventolin 0.083% Nebulizer Soln -] Albuterol Sulfate Inhaler - 2 inh PO Q6H #1 inh 11/06/16 [Ventolin HFA Inhaler -] Cephalexin [Keflex] 500 mg PO Q6H #9 capsule 11/06/16 Guaifenesin AC [Robitussin AC -] 5 ml PO HS PRN #60 ml MDD 1 11/06/16 Nebulizer and Compressor [Comp-Air 1 each MC ASDIR #1 each 11/06/16 Elite Comp System] Prednisone [Deltasone -] 20 mg PO DAILY #7 tab 11/06/16 Alprazolam 0.5 mg PO DAILY 11/20/16 Furosemide [Lasix -] 20 mg PO DAILY 11/20/16 Levothyroxine [Synthroid -] 100 mcg PO DAILY@0700 11/20/16 Losartan Potassium 50 mg PO 11/20/16 Tamoxifen Citrate 20 mg PO DAILY 11/20/16 ASSESSMENT AND PLAN: 66 yo F with pmhx of cervical ca with mets to lungs, HTN, HLD, IDDM, COPD, Hypothyriodism, DVT/PE who presents with shortness of breath, being admitted for Sepsis and Acute Exacerbation of Asthma 1.) Severe Sepsis - Possibly due to Cellulitis - Mcelroy Cx - Repeat LA- May also be due to ca - IVF - Empiric Vanco/Zosyn - ID consult - Consult onc to see if oral chemo needs to be held 2.) Acute Exacerbation of Asthma - Wheezing may due to her mets - C/w Asmanex - Peak Flow - Nebs - Prednisone 60 daily - Pulm. 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 is more stable - Consider Oncology consult 8.) Hypothyroid - Chk. TSH - C/W current Synthriod dose 8.) Hx of Dvt/PE - C/W Lovenox 80mg Q12h Place in Med-Sx
--- NOTE | 2016-11-20 23:56 | PDOC ---
History of Present Illness - General Chief Complaint: Shortness of Breath Stated Complaint: Shortness of Breath Time Seen by Provider: 11/20/16 19:37 - History of Present Illness Initial Comments: 11/20/16 23:56 CHIEF COMPLAINT: sob HISTORY OF PRESENT ILLNESS: 66 yo F with significant PMH of cervical CA with mets to lungs, HTN, HLD, IDDM, asthma, COPD, hypothyroidism, DVT, and PE presents to ED with throat pain, cough and shortness of breath since yesterday. Patient reports that she has had this shortness of breath "for three years" but she came in today because it was much worse and her chest felt heavy and "like I was going to have an asthma attack." PAST MEDICAL HISTORY: as per HPI FAMILY HISTORY: Denies SOCIAL HISTORY: Denies tobacco, alcohol, illicit drug use. SURGICAL HISTORY: Denies ALLERGIES: PCN REVIEW OF SYSTEMS General/Constitutional: Denies fever or chills. Denies weakness, weight change. HEENT: Denies change in vision. Denies ear pain or discharge. Denies sore throat. Cardiovascular: Denies chest pain or shortness of breath. Respiratory: Cough, wheezing. Denies hemoptysis. Gastrointestinal: Denies nausea, vomiting, diarrhea or constipation. Denies rectal bleeding. Genitourinary: Denies dysuria, frequency, or change in urination. Musculoskeletal: Denies joint or muscle swelling or pain. Denies neck or back pain. Skin and breasts: Denies rash or easy bruising. Neurologic: Headache today. Denies vertigo, loss of consciousness, or loss of sensation. PHYSICAL EXAM General Appearance: Uncomfortable-appearing, appropriately dressed. No apparent distress. HEENT: EOMI, PERRLA, normal ENT inspection, normal voice, TMs normal, pharynx normal. No conjunctival pallor. No photophobia, scleral icterus. Neck: Supple. Trachea midline. No tenderness, rigidity, carotid bruit, stridor , lymphadenopathy, or thyromegaly. Respiratory/Chest: Scattered wheezing bilaterally, increased work of breathing. . No crackles, rales, rhonchi, stridor, dullness. Cardiovascular: RRR. S1, S2. No JVD, murmur, bradycardia, tachycardia. Vascular Pulses: Dorsalis-Pedis (R): 2+, Dorsalis-Pedis (L): 2+ Gastrointestinal/Abdominal: Normal bowel sounds. Abdomen soft, non-distended. No tenderness or rebound tenderness. No organomegaly, pulsatile mass, guarding , hernia, hepatomegaly, splenomegaly. Musculoskeletal/Extremities: Normal inspection. FROM of all extremities, normal capillary refill. Pelvis Stable. No CVA tenderness. No tenderness to extremities, pedal edema, swelling, erythema or deformity. Integumentary: Appropriate color, dry, warm. No cyanosis, erythema, jaundice or rash Neurologic: insole cementer II-XII intact. Fully oriented, alert. Appropriate mood/affect. Motor strength 5/5. No appreciable EOM palsy, facial droop or sensory deficit. 11/20/16 23:58 Past History - Past Medical History Allergies/Adverse Reactions: Allergies Allergy/AdvReac Type Severity Reaction Status Date / Time Penicillins Allergy Unknown Hives Verified 11/20/16 17:27 Home Medications: Ambulatory Orders Aspirin [ASA -] 81 mg PO DAILY 08/30/16 Cholecalciferol (Vitamin D3) [Vitamin D -] 1,000 unit PO Q7D 08/30/16 Megestrol Acetate 80 mg PO BID 08/30/16 Montelukast Na [Singulair -] 10 mg PO HS 08/30/16 Oxycodone HCl 15 mg PO TID PRN 08/30/16 Atorvastatin Ca [Lipitor] 10 mg PO HS 10/29/16 Budesonide/Formeterol Fumarate [SYMBICORT 160/4.5mcg -] 1 inh PO BID 10/29/16 Insulin Aspart [Novolog] 10 unit SQ TID 10/29/16 Insulin Glargine,Hum.rec.anlog [Lantus (10mL VIAL) -] 40 units SQ BID 10/29/16 Lisinopril 10 mg PO DAILY 10/29/16 Prochlorperazine Maleate 5 mg PO PRN 10/29/16 Ranitidine [Zantac -] 300 mg PO ONCE 10/29/16 Sertraline HCl 25 mg PO DAILY 10/29/16 Albuterol 0.083% Nebulizer Kandace [Ventolin 0.083% Nebulizer Soln -] 1 amp NEB Q6H PRN #25 amp 11/06/16 Albuterol Sulfate Inhaler - [Ventolin HFA Inhaler -] 2 inh PO Q6H #1 inh Cephalexin [Keflex] 500 mg PO Q6H #9 capsule 11/06/16 Guaifenesin AC [Robitussin AC -] 5 ml PO HS PRN #60 ml MDD 1 11/06/16 Nebulizer and Compressor [Comp-Air Elite Comp System] 1 each ASDIR #1 each Prednisone [Deltasone -] 20 mg PO DAILY #7 tab 11/06/16 Alprazolam 0.5 mg PO DAILY 11/20/16 Furosemide [Lasix -] 20 mg PO DAILY 11/20/16 Levothyroxine [Synthroid -] 100 mcg PO DAILY@0700 11/20/16 Losartan Potassium 50 mg PO 11/20/16 Tamoxifen Citrate 20 mg PO DAILY 11/20/16 Anemia: Yes Asthma: Yes Cancer: Yes (cervical, lung ca, S/P CHEMO, RADIATION) Cardiac Disorders: Yes (CAD.) CVA: No COPD: Yes CHF: No Dementia: No Diabetes: Yes GI Disorders: No Disorders: No HTN: Yes Hypercholesterolemia: Yes Liver Disease: No Suicide Attempt (Hx): No Seizures: No Thyroid Disease: Yes - Surgical History Abdominal Surgery: Yes (UMBILICAL hernia repair) Appendectomy: No Cardiac Surgery: Yes (LLE Bypass) Cholecystectomy: Yes Lung Surgery: No Neurologic Surgery: No Orthopedic Surgery: Yes (amputation rt 3rd and 4th toes) - Family Disease History Family Disease History: Diabetes: Mother, Heart Disease: Father - Immunization History Td Vaccination: Yes TDAP Vaccination: Yes Immunization Up to Date: Yes - Psycho/Social/Smoking Cessation Hx Anxiety: No Suicidal Ideation: No Smoking Status: No Smoking History: Never smoked Years of Tobacco Use: 0 Have you smoked in the past 12 months: No Number of Cigarettes Smoked Daily: 0 Cigars Per Day: 0 Hx Alcohol Use: No Drug/Substance Use Hx: No Substance Use Type: None Hx Substance Use Treatment: No Respiratory Specific PMHX - Complaint Specific PMHX Bronchitis: No Pneumonia: No *Physical Exam - Vital Signs Last Vital Signs Temp Pulse Resp BP Pulse Ox 98.5 F 90 21 141/63 97 11/20/16 17:27 11/20/16 19:29 11/20/16 23:42 11/20/16 23:42 11/20/16 23:42 ED Treatment Course - LABORATORY CBC & Chemistry Diagram: 11/20/16 20:20 11/20/16 20:20 - ADDITIONAL ORDERS Additional order review: Laboratory Results 11/20/16 11/20/16 11/20/16 21:59 20:46 20:20 INR VBG pH 7.40 POC VBG pCO2 52.3 H POC VBG pO2 24.5 L Mixed VBG HCO3 32.0 H Sodium 136 Potassium 5.1 Chloride 99 Carbon Dioxide 33 H Anion Gap 4 L BUN 27 H D Creatinine 1.0 Creat Clearance w eGFR 55.64 Random Glucose 97 D Lactic Acid 3.3 H* Calcium 9.3 Magnesium 2.0 Total Bilirubin 0.4 D AST 20 ALT 27 Alkaline Phosphatase 107 D Creatine Kinase 120 Troponin I < 0.02 B-Natriuretic Peptide 135.79 H Total Protein 6.9 Albumin 3.2 L 11/20/16 20:20 INR 0.96 VBG pH POC VBG pCO2 POC VBG pO2 Mixed VBG HCO3 Sodium Potassium Chloride Carbon Dioxide Anion Gap BUN Creatinine Creat Clearance w eGFR Random Glucose Lactic Acid Calcium Magnesium Total Bilirubin AST ALT Alkaline Phosphatase Creatine Kinase Troponin I B-Natriuretic Peptide Total Protein Albumin 11/20/16 20:20 RBC 4.74 D MCV 80.6 MCHC 32.2 RDW 17.9 H MPV 9.0 D Neutrophils % 85.0 H Lymphocytes % 14.0 D Monocytes % 1.0 L Eosinophils % 0.0 D - RADIOLOGY Radiology Studies Ordered: Category Date Time Status CHEST CTA [CT] Stat CT Scan 11/20/16 23:24 Ordered CHEST PA & LAT [RAD] Stat Radiology 11/20/16 19:47 Completed - Medications Given in the ED: ED Medications Discontinued Medications Generic Name Dose Route Start Last Admin Trade Name Freq PRN Reason Stop Dose Admin Acetaminophen 1,000 mg 11/20/16 22:25 11/20/16 22:32 Ofirmev Injection - IVPB 11/20/16 22:26 1,000 mg ONCE ONE Administration Albuterol/Ipratropium 1 amp 11/20/16 21:33 11/20/16 21:50 Duoneb - NEB 11/20/16 21:34 1 amp ONCE ONE Administration Oxycodone HCl 15 mg 11/20/16 23:21 11/20/16 23:38 Roxicodone - PO 11/20/16 23:22 15 mg ONCE ONE Administration Sodium Chloride 500 ml 11/20/16 23:23 11/20/16 23:39 Normal Saline - IV 11/20/16 23:24 500 ml ONCE ONE Administration Medical Decision Making - Medical Decision Making 11/21/16 00:19 66 yo F with significant PMH of cervical CA with mets to lungs, HTN, HLD, IDDM , asthma, COPD, hypothyroidism, DVT, and PE presents to ED with throat pain, cough and shortness of breath since yesterday. -CBC, CMP, lactic acid, PT/INR, card profile, BNP, blood culture -CXR, EKG -Duoneb CXR with b/l masses, mostly unchanged from previous of 10/2016. Patient reassessed after initial Duoneb, continues to have wheezing b/l. 11/21/16 00:20 Laboratory Tests 11/20/16 11/20/16 11/20/16 20:20 20:20 21:59 WBC 20.1 H D Neutrophils % 85.0 H Lactic Acid 3.3 H* B-Natriuretic Peptide 135.79 H Patient continues to have SOB and diffuse wheezing despite multiple neb treatments and is tachy to 97. Will order CTA to r/o PE given patient's hx of DVT and PE. -1g Mg In addition, patient meets SIRS criteria. PCP Shant, will admit to hospitalist. *DC/Admit/Observation/Transfer Diagnosis at time of Disposition: Sepsis Qualifiers: Sepsis type: sepsis due to unspecified organism Qualified Code(s): A41.9 - Sepsis, unspecified organism - Discharge Dispostion Admit: Yes
[2016-11-21] MEDS ORDERED: MAGNESIUM SULF 50% (8.12 MEQ/2 ML-1 GM VIAL) ONE (00:07)
--- NOTE | 2016-11-21 00:07 | PDOC ---
*Physical Exam - Vital Signs Last Vital Signs Temp Pulse Resp BP Pulse Ox 98.5 F 90 21 141/63 97 11/20/16 17:27 11/20/16 19:29 11/20/16 23:42 11/20/16 23:42 11/20/16 23:42 ED Treatment Course - LABORATORY CBC & Chemistry Diagram: 11/21/16 09:55 11/21/16 07:47 - ADDITIONAL ORDERS Additional order review: Laboratory Results 11/20/16 11/20/16 11/20/16 21:59 20:46 20:20 INR VBG pH 7.40 POC VBG pCO2 52.3 H POC VBG pO2 24.5 L Mixed VBG HCO3 32.0 H Sodium 136 Potassium 5.1 Chloride 99 Carbon Dioxide 33 H Anion Gap 4 L BUN 27 H D Creatinine 1.0 Creat Clearance w eGFR 55.64 Random Glucose 97 D Lactic Acid 3.3 H* Calcium 9.3 Magnesium 2.0 Total Bilirubin 0.4 D AST 20 ALT 27 Alkaline Phosphatase 107 D Creatine Kinase 120 Troponin I < 0.02 B-Natriuretic Peptide 135.79 H Total Protein 6.9 Albumin 3.2 L 11/20/16 20:20 INR 0.96 VBG pH POC VBG pCO2 POC VBG pO2 Mixed VBG HCO3 Sodium Potassium Chloride Carbon Dioxide Anion Gap BUN Creatinine Creat Clearance w eGFR Random Glucose Lactic Acid Calcium Magnesium Total Bilirubin AST ALT Alkaline Phosphatase Creatine Kinase Troponin I B-Natriuretic Peptide Total Protein Albumin 11/20/16 20:20 RBC 4.74 D MCV 80.6 MCHC 32.2 RDW 17.9 H MPV 9.0 D Neutrophils % 85.0 H Lymphocytes % 14.0 D Monocytes % 1.0 L Eosinophils % 0.0 D - Medications Given in the ED: ED Medications Discontinued Medications Generic Name Dose Route Start Last Admin Trade Name Freq PRN Reason Stop Dose Admin Acetaminophen 1,000 mg 11/20/16 22:25 11/20/16 22:32 Ofirmev Injection - IVPB 11/20/16 22:26 1,000 mg ONCE ONE Administration Albuterol/Ipratropium 1 amp 11/20/16 21:33 11/20/16 21:50 Duoneb - NEB 11/20/16 21:34 1 amp ONCE ONE Administration Oxycodone HCl 15 mg 11/20/16 23:21 11/20/16 23:38 Roxicodone - PO 11/20/16 23:22 15 mg ONCE ONE Administration Sodium Chloride 500 ml 11/20/16 23:23 11/20/16 23:39 Normal Saline - IV 11/20/16 23:24 500 ml ONCE ONE Administration Medical Decision Making - Medical Decision Making 11/21/16 00:06 agree with care from CONNER Zee *DC/Admit/Observation/Transfer Diagnosis at time of Disposition: Sepsis
[2016-11-21 01:01] LABS: URINE APPEARANCE CLEAR; URINE BILIRUBIN NEGATIVE (NEGATIVE); URINE BLOOD NEGATIVE (NEGATIVE); URINE COLOR YELLOW; URINE GLUCOSE (UA) NEGATIVE (NEGATIVE); URINE KETONE NEGATIVE (NEGATIVE); URINE LEUK ESTERASE TRACE (NEGATIVE); URINE NITRITE NEGATIVE (NEGATIVE); URINE UROBILINOGEN NEGATIVE mg/dL (0.2-1.0)
--- NOTE | 2016-11-21 01:12 | HP ---
CHIEF COMPLAINT: worsening SOB PCP: Dr. Fausto Connolly HISTORY OF PRESENT ILLNESS: 66yo F with PMH of Endometrial Ca with lung mets, asthma, DVT, HTN, HLD, IDDM, hypothyroidism presents today with worsening SOB with exertion, cough and throat pain. Pt was discharged 2 weeks ago from asthma exacerbation, and states she came back to the ER because her symptoms did not resolve. She reports having cough and wheezing for a year r/t to lung mets, however symptoms of cough and SOB with exertion are worse x 1 day. Pt denies orthopnea, chest pain, palpitations. ER course was notable for: (1) CXR (2) Albuterol tx (3) Oxycodone for pain (4) NS 500ml IV once (5) EKG: NSR PAST MEDICAL HISTORY: asthma, DVT, HTN, hypercholesterolemia, hypothyroidism x 38 yrs, IDDM x 25 yrs PAST SURGICAL HISTORY: vascular bypass to Left LE 8 yrs ago hysterectomy 2009 hernia repair cholecystectomy Social History: Smoking: never Alcohol: none Drugs: none Family History: brother and sister with DM Allergies Penicillins Allergy (Unknown, Verified 11/20/16 17:27) Hives HOME MEDICATIONS: Home Medications Medication Instructions Recorded Aspirin [ASA -] 81 mg PO DAILY 08/30/16 Cholecalciferol (Vitamin D3) 1,000 unit PO Q7D 08/30/16 [Vitamin D -] Megestrol Acetate 80 mg PO BID 08/30/16 Montelukast Na [Singulair -] 10 mg PO HS 08/30/16 Oxycodone HCl 15 mg PO TID PRN 08/30/16 Atorvastatin Ca [Lipitor] 10 mg PO HS 10/29/16 Budesonide/Formeterol Fumarate 1 inh PO BID 10/29/16 [SYMBICORT 160/4.5mcg -] Insulin Aspart [Novolog] 10 unit SQ TID 10/29/16 Insulin Glargine,Hum.rec.anlog 40 units SQ BID 10/29/16 [Lantus (10mL VIAL) -] Lisinopril 10 mg PO DAILY 10/29/16 Prochlorperazine Maleate 5 mg PO PRN 10/29/16 Ranitidine [Zantac -] 300 mg PO ONCE 10/29/16 Sertraline HCl 25 mg PO DAILY 10/29/16 Albuterol 0.083% Nebulizer Kandace 1 amp NEB Q6H PRN #25 amp 11/06/16 [Ventolin 0.083% Nebulizer Soln -] Albuterol Sulfate Inhaler - 2 inh PO Q6H #1 inh 11/06/16 [Ventolin HFA Inhaler -] Cephalexin [Keflex] 500 mg PO Q6H #9 capsule 11/06/16 Guaifenesin AC [Robitussin AC -] 5 ml PO HS PRN #60 ml MDD 1 11/06/16 Nebulizer and Compressor [Comp-Air 1 each MC ASDIR #1 each 11/06/16 Elite Comp System] Prednisone [Deltasone -] 20 mg PO DAILY #7 tab 11/06/16 Alprazolam 0.5 mg PO DAILY 11/20/16 Furosemide [Lasix -] 20 mg PO DAILY 11/20/16 Levothyroxine [Synthroid -] 100 mcg PO DAILY@0700 11/20/16 Losartan Potassium 50 mg PO 11/20/16 Tamoxifen Citrate 20 mg PO DAILY 11/20/16 REVIEW OF SYSTEMS CONSTITUTIONAL: Absent: fever, chills, diaphoresis, loss of appetite, weight change HEENT: Present: throat pain Absent: rhinorrhea, nasal congestion, throat swelling, difficulty swallowing, mouth swelling, eye pain, visual changes CARDIOVASCULAR: Absent: chest pain, palpitations, irregular heart rate, lightheadedness RESPIRATORY: Present: cough, shortness of breath, dypnea with exertion, wheezing Absent: stridor GASTROINTESTINAL: Absent: abdominal distension, nausea, vomiting, diarrhea, constipation, melena, hematochezia GENITOURINARY: Absent: hematuria MUSCULOSKELETAL: Present: generalized pain, myalgia, arthralgia Absent: joint swelling, back pain, neck pain SKIN: Absent: rash, itching, pallor HEMATOLOGIC/IMMUNOLOGIC: Absent: easy bleeding, easy bruising, lymphadenopathy, frequent infections ENDOCRINE: Absent: unexplained weight gain, unexplained weight loss, heat intolerance, cold intolerance NEUROLOGIC: Present: neuropathy to harshil feet Absent: mental status changes PSYCHIATRIC: Present: anxiety PHYSICAL EXAMINATION Vital Signs - 24 hr 11/20/16 11/20/16 11/20/16 17:27 19:29 23:42 Temperature 98.5 F Pulse Rate 97 H Pulse Rate [ 90 Radial] Respiratory 24 20 21 Rate Blood Pressure 179/75 Blood Pressure 153/77 141/63 [Arm] O2 Sat by Pulse 99 100 97 Oximetry (%) GENERAL: Cushingoid. Awake, alert, and fully oriented, in no acute distress. HEAD: Normal with no signs of trauma. EYES: Injected conjunctiva. Extraocular movements intact, sclera anicteric. No lid lag. EARS, NOSE, THROAT: Oropharynx erythematous with white exudates. Moist mucous membranes. NECK: Normal range of motion, supple without lymphadenopathy, JVD, or masses. LUNGS: Bilateral expiratory wheezing. No crackles. No accessory muscle use. HEART: Regular rate and rhythm, normal S1 and S2 without murmur, rub or gallop. ABDOMEN: Soft, nontender, not distended, normoactive bowel sounds, no guarding, no rebound, no masses. LOWER EXTREMITIES: 3+ pitting edema to harshil LE. Left LE with erythema, warmth, pain to palpation. 2+ pulses, warm, well-perfused. NEUROLOGICAL: Normal speech. PSYCHIATRIC: Cooperative. Good eye contact. Appropriate mood and affect. SKIN: Warm, dry, normal turgor, no rashes or lesions noted. Laboratory Results - last 24 hr 11/20/16 11/20/16 11/20/16 20:20 20:20 20:20 WBC 20.1 H D RBC 4.74 D Hgb 12.3 D Hct 38.2 D MCV 80.6 MCH 26.0 MCHC 32.2 RDW 17.9 H Plt Count 327 D MPV 9.0 D Neutrophils % 85.0 H Lymphocytes % 14.0 D Monocytes % 1.0 L Eosinophils % 0.0 D INR 0.96 VBG pH POC VBG pCO2 POC VBG pO2 Mixed VBG HCO3 Sodium 136 Potassium 5.1 Chloride 99 Carbon Dioxide 33 H Anion Gap 4 L BUN 27 H D Creatinine 1.0 Creat Clearance w eGFR 55.64 Random Glucose 97 D Lactic Acid Calcium 9.3 Magnesium 2.0 Total Bilirubin 0.4 D AST 20 ALT 27 Alkaline Phosphatase 107 D Creatine Kinase 120 Troponin I < 0.02 B-Natriuretic Peptide 135.79 H Total Protein 6.9 Albumin 3.2 L 11/20/16 11/20/16 20:46 21:59 WBC RBC Hgb Hct MCV MCH MCHC RDW Plt Count MPV Neutrophils % Lymphocytes % Monocytes % Eosinophils % INR VBG pH 7.40 POC VBG pCO2 52.3 H POC VBG pO2 24.5 L Mixed VBG HCO3 32.0 H Sodium Potassium Chloride Carbon Dioxide Anion Gap BUN Creatinine Creat Clearance w eGFR Random Glucose Lactic Acid 3.3 H* Calcium Magnesium Total Bilirubin AST ALT Alkaline Phosphatase Creatine Kinase Troponin I B-Natriuretic Peptide Total Protein Albumin Troponin, BNP 11/20/16 20:20 Troponin I < 0.02 B-Natriuretic Peptide 135.79 H IMAGIN11/20/16 CXR reveals bilateral pulmonary masses with little interval change since 10/31/16. ASSESSMENT/PLAN: 66yo F with PMH of Endometrial Ca with lung mets, asthma, DVT, HTN, HLD, IDDM, hypothyroidism, admitted for asthma exacerbation. 1) severe sepsis - as evidenced by HR > 90, RR > 20, WBC > 12, cellulitis, and lactic acidosis - lactic acidosis likely 2/2 cancer, lung mets - lactic acid trending down, 2.7 at 2:29am 11/21/16 - NS IVFs given - empiric Vancomycin 1250mg IVPB once / Aztreonam 1g IVPB once - ID Consult 2) asthma exacerbation - may be 2/2 lung mets - cont. Montelukast 10mg PO HS - give Asmanax 2 puffs BID - give Duonebs 1 neb QID, 1 neb q4h prn - give Prednisone 60mg po daily - Cushingoid appearance likely 2/2 long-term steroid use for chronic asthma - Pulmonary Consult - f/u chest CTA 3) oral thrush - Nystatin swish and swallow, Oral Suspension 500,000U PO q6h 4) Endometrial Ca - hold Tamoxifen Citrate - Onc Consult 5) IDDM - Novolog 10U SQ TIDAC / Levemir 80U SQ q12h insulin - sliding scale insulin prn - cont. poc glucose monitoring 6) HTN - cont. Lisinopril 10mg PO daily, Lorsartan 50mg po daily 7) hypercholesterolemia - cont. Atorvastatin 10mg PO HS 8) hypothyroidism - cont. Synthroid 100mcg PO daily - f/u TSH, free T4 9) anxiety - cont. Xanax 0.5mg PO daily 10) Hx of DVT - Lovenox 80mg SQ BID Visit type - Emergency Visit Emergency Visit: Yes ED Registration Date: 11/21/16 Care time: The patient presented to the Emergency Department on the above date and was hospitalized for further evaluation of their emergent condition. - New Patient This patient is new to me today: Yes Date on this admission: 11/21/16 - Critical Care Critical Care patient: No
[2016-11-21 01:16] LABS: URINE PROTEIN 2+ (NEGATIVE)
[2016-11-21 01:21] LABS: URINE BACTERIA RARE /hpf (NONE SEEN); URINE MUCUS RARE; URINE RBC 2 /hpf (0-3); URINE WBC 7 /hpf (3-5)
[2016-11-21] MEDS ORDERED: ALBUTEROL SO4 0.083% IH SOL 2.5 MG/3 ML VIAL.NEB. NEB PRN ×3 (01:44→12:19)
[2016-11-21] MEDS ORDERED: VANCOMYCIN 2,000 MG in DEXTROSE 5%-WATER - 250 ML IVPB ONE (02:06)
[2016-11-21] MEDS ORDERED: ONDANSETRON 8 MG TABLET (FP) PO PRN (02:07)
[2016-11-21] MEDS ORDERED: guaiFENesin/CODEINE 5 ML UNIT-DOSE CUPS PO PRN (02:11)
[2016-11-21] MEDS ORDERED: PATIENT'S OWN MEDICATION (NON-FORMULARY) (Oxycodone Hcl [Oxycodone Hcl] 15 MG) PO PRN (02:11)
[2016-11-21] MEDS ORDERED: PROCHLORPERAZINE MALEATE 5 MG TABLET PO SCH (02:15)
[2016-11-21] MEDS ORDERED: ALBUTEROL SO4 6.7 GM HFA INHALER IH SCH (02:15)
[2016-11-21] MEDS ORDERED: CHOLECALCIFEROL (VITAMIN D3) 400 UNIT TABLET (FP) PO SCH (02:15)
[2016-11-21] MEDS ORDERED: RANITIDINE HCL 150 MG TABLET (FP) PO ONE (02:15)
[2016-11-21] MEDS ORDERED: [UNRECOGNIZED DRUG - OTHER] MC SCH (02:15)
[2016-11-21] MEDS ORDERED: methylPREDNISolone NA SUCC 40 MG/1 ML VIAL IVPB ONE (02:30)
[2016-11-21] MEDS ORDERED: ALBUTEROL SO4 2.5/IPRATROPIUM 0.5 INH SOL 3 ML VIAL.NEB. NEB PRN (02:33)
[2016-11-21] MEDS ORDERED: AZTREONAM 1 GM in DEXTROSE 5%-WATER - 50 ML IVPB ONE ×2 (03:00→03:45)
[2016-11-21] MEDS ORDERED: methylPREDNISolone NA SUCC 40 MG/1 ML VIAL IVPB SCH (03:00)
[2016-11-21] MEDS ORDERED: VANCOMYCIN 1,250 MG in DEXTROSE 5%-WATER - 250 ML IVPB ONE (03:00)
[2016-11-21] MEDS ORDERED: ENOXAPARIN NA (PORCINE) 80 MG/0.8 ML DISP.SYRIN SQ SCH (03:45)
[2016-11-21] MEDS: ALBUTEROL SO4 2.5/IPRATROPIUM 0.5 INH SOL 3 ML VIAL.NEB. NEB SCH ×3 (06:16→17:45)
[2016-11-21] MEDS: INSULIN (NOVOLOG) ASPART 100 UNITS/ML 10ML VIAL SQ SCH ×2 (06:49→11:31)
[2016-11-21] MEDS: INSULIN SLIDING SCALE (NOVOLOG) 1 VIAL SQ SCH ×4 (06:49→21:38)
[2016-11-21] MEDS: NYSTATIN 500,000 UNITS/5 ML SUSPENSION PO SCH ×4 (06:49→23:55)
[2016-11-21] MEDS ORDERED: LEVOTHYROXINE NA 100 MCG TABLET (FP) PO SCH (07:00)
[2016-11-21 08:24] LABS: ANION GAP 10 (8-16); CALCIUM 8.8 mg/dL (8.5-10.1); CO2 27 mmol/L (21-32); CREATININE 0.9 mg/dL (0.55-1.02); GLUCOSE,RANDOM 187 mg/dL (74-106)
[2016-11-21 08:32] LABS: FREE T4 1.19 ng/dl (0.76-1.46); THYROID STIMULATING HORMONE 0.22 uIU/ml (0.358-3.74)
[2016-11-21] MEDS: LOSARTAN POTASSIUM 50 MG TABLET (FP) PO SCH (09:49)
[2016-11-21] MEDS: ASPIRIN 81 MG CHEWABLE TABLETS PO SCH (09:49)
[2016-11-21] MEDS: predniSONE 20 MG TABLET (UD) PO SCH (09:50)
[2016-11-21] MEDS: LISINOPRIL 10 MG TABLET (FP) PO SCH (09:51)
[2016-11-21] MEDS: SERTRALINE HCL 25 MG TABLET (FP) PO SCH (09:51)
[2016-11-21] MEDS: MEGESTROL ACETATE 40 MG TABLET PO SCH ×2 (09:52→21:36)
[2016-11-21] MEDS ORDERED: BUDESONIDE/FORMETEROL FUMARATE 160/4.5 mcg INHALER IH SCH (10:00)
[2016-11-21] MEDS ORDERED: ENOXAPARIN NA (PORCINE) 40 MG/0.4 ML DISP.SYRIN SQ SCH ×2 (10:00)
[2016-11-21] MEDS ORDERED: FUROSEMIDE 20 MG TABLET (FP) PO SCH (10:00)
[2016-11-21] MEDS ORDERED: ALPRAZolam 0.25 MG TABLET PO SCH (10:00)
[2016-11-21] MEDS ORDERED: INSULIN DETEMIR 100 UNITS/ML MDV SQ SCH ×3 (10:00→22:00)
[2016-11-21] MEDS ORDERED: MOMETASONE FUROATE 110 MCG/IH INHALER IH SCH (10:00)
[2016-11-21] MEDS ORDERED: SODIUM CHLORIDE 1,000 ML IV SCH ×2 (10:15→13:49)
[2016-11-21 10:28] LABS: MCH 25.4 pg (25.7-33.7); MCHC 31.5 g/dl (32.0-36.0); MEAN CELL VOLUME 80.6 fl (80-96); MEAN PLT VOLUME 8.7 fl (7.5-11.1); PLATELET COUNT 307 K/MM3 (134-434); RDW 17.7 % (11.6-15.6); WHITE BLOOD COUNT 19.8 K/mm3 (4.0-10.0)
[2016-11-21] MEDS ORDERED: INSULIN DETEMIR 100 UNITS/ML MDV SQ ONE ×2 (10:30→18:07)
[2016-11-21] MEDS ORDERED: FLUTICASONE/SALMETEROL 100 MCG/50 MCG DISKUS IH SCH (11:00)
--- NOTE | 2016-11-21 12:29 | PN ---
Progress Note (short form) - Note Progress Note: PULMONARY CONSULTATION DICTATED 11/21/16 IMP ACUTE ASTHMA EXACERBATION ENDOMETRIAL CA WITH EXTENSIVE LUNG METS HTN HLD HYPOTHYROIDISM PVD H/O DVT PLAN STEROIDS INHALED BRONCHODILATORS O2 MONITOR PEAK FLOW CHEST PT DR CELAYA Problem List - Problems (1) Acute asthma exacerbation Code(s): J45.901 - UNSPECIFIED ASTHMA WITH (ACUTE) EXACERBATION (2) Cervical cancer Code(s): C53.9 - MALIGNANT NEOPLASM OF CERVIX UTERI, UNSPECIFIED (3) Chronic steroid use Code(s): NBV1760 - (4) Endometrial cancer Code(s): C54.1 - MALIGNANT NEOPLASM OF ENDOMETRIUM (5) History of DVT of lower extremity Code(s): Z86.718 - PERSONAL HISTORY OF OTHER VENOUS THROMBOSIS AND EMBOLISM (6) Hyperlipidemia Code(s): E78.5 - HYPERLIPIDEMIA, UNSPECIFIED Qualifiers: Hyperlipidemia type: unspecified Qualified Code(s): E78.5 - Hyperlipidemia, unspecified (7) Hypertension Code(s): I10 - ESSENTIAL (PRIMARY) HYPERTENSION Qualifiers: Hypertension type: essential hypertension Qualified Code(s): I10 - Essential (primary) hypertension (8) Hypothyroidism Code(s): E03.9 - HYPOTHYROIDISM, UNSPECIFIED Qualifiers: Hypothyroidism type: unspecified Qualified Code(s): E03.9 - Hypothyroidism, unspecified (9) Metastatic disease Code(s): C79.9 - SECONDARY MALIGNANT NEOPLASM OF UNSPECIFIED SITE (10) Obesity Code(s): E66.9 - OBESITY, UNSPECIFIED
--- NOTE | 2016-11-21 13:22 | CONSULT ---
Consultation: REQUESTING PROVIDER: Dr. Morrell CONSULT REQUEST: We have been asked to medically evaluate this patient for sepsis; lactic acidosis. HISTORY OF PRESENT ILLNESS: 66yo woman with PMH of cervical carcinoma with lung mets (s/p chemotherapy, on Tamoxifen), hypothyroidism (on synthroid), PVD, CAD, chronic asthma 2/2 to mets (on home O2 and chronic steroids), IDDM who presents with increasing SOB and cough x1day. She was last here 10/31-11/09 for increasing malaise/lethargy. She was discharged on keflex for possible LE cellulitis and 20mg steroids bid for asthma exacerbation. Since being home she continued to have dyspnea and require O2 at baseline. A few days ago she had nausea and NBNB emesisx2, but no episoes since then. No anorexia, but states that she has been eating only small portions 2/2 to early satiety. She is currently being treated for oral candidiasis with Nystatin swish and swallow for the past month (prescribed by PCP). No dysphagia or odynophagia. She denies any fevers, but says she often has chills. No dysuria, frequency or hesitation. No chest pain, palpitations or pressure. PAST MEDICAL HISTORY: Peripheral neuropathy Coronary artery disease Deep vein thrombosis Hypertension Hyperlipdemia Hypothyroid Peripheral artery disease Asthma Gastritis Cervical cancer with metastasis to lungs Anxiety Depression Type 2 diabetes Mellitus Chronic back pain PAST SURGICAL HISTORY: Cholecystectomy, hernia repair, hysterectomy, LLE bypass, RLE angioplasy Social History: lives at home Smoking:denies Alcohol:denies Drugs: denies Allergies: Penicillins --> hives, rash (does tolerate cephalosporins) REVIEW OF SYSTEMS: CONSTITUTIONAL: +chills, malaise Absent: fever, diaphoresis, generalized weakness, loss of appetite, weight change HEENT: Absent: rhinorrhea, nasal congestion, throat pain, throat swelling, difficulty swallowing, mouth swelling, ear pain, eye pain, visual changes CARDIOVASCULAR: Absent: chest pain, syncope, palpitations, irregular heart rate, lightheadedness , peripheral edema RESPIRATORY: +cough, SOB, [place], wheezing Absent: orthopnea, stridor, hemoptysis GASTROINTESTINAL: +nausea, vomiting Absent: abdominal pain, abdominal distension, diarrhea, constipation, melena, hematochezia GENITOURINARY: Absent: dysuria, frequency, urgency, hesitancy, hematuria, flank pain, genital pain MUSCULOSKELETAL: Absent: myalgia, arthralgia, joint swelling, back pain, neck pain SKIN: Absent: rash, itching, pallor HEMATOLOGIC/IMMUNOLOGIC: Absent: easy bleeding, easy bruising, lymphadenopathy, frequent infections ENDOCRINE: Absent: unexplained weight gain, unexplained weight loss, heat intolerance, cold intolerance NEUROLOGIC: Absent: headache, focal weakness or paresthesias, dizziness, unsteady gait, seizure, mental status changes, bladder or bowel incontinence PSYCHIATRIC: Absent: anxiety, depression, suicidal or homicidal ideation, hallucinations. PHYSICAL EXAMINATION Vital Signs - 24 hr 11/21/16 11/21/16 11/21/16 02:30 06:00 09:00 Temperature 97.6 F 98.4 F Pulse Rate 90 85 Respiratory 20 20 Rate Blood Pressure 137/73 143/64 O2 Sat by Pulse 97 98 Oximetry (%) 11/21/16 10:00 Temperature 98.2 F Pulse Rate 99 H Respiratory 20 Rate Blood Pressure 139/71 O2 Sat by Pulse Oximetry (%) GENERAL: Cushingoid, Awake, alert, and fully oriented, in no acute distress. HEENT:sclera anicteric, conjunctiva clear, b/l enlarged, non-tender parotids; small, oropharynx: small white exudate on R soft palate, mmm NECK: supple, no cervical LAD LUNGS: b/l expiratory wheezing, no accessory muscle use. HEART: rrr, normal S1/S2 without murmur, rub or gallop. ABDOMEN: Soft, ntnd, normoactive bowel sounds LOWER EXTREMITIES: 3+ pitting edema b/l, 2+ DP/PT pulses b/l, R foot 3-5 digits amputated, L healed ulcer on great toe. NEUROLOGICAL: Cranial nerves II-XII intact. Normal speech. Normal gait. PSYCHIATRIC: Cooperative. Good eye contact. Appropriate mood and affect. SKIN: Warm, dry, normal turgor; patchy erythema on anterior shins, no increased warmth, non-tender to touch CBC, BMP 11/21/16 09:55 11/21/16 07:47 Urine Test Results Urine Color Yellow 11/21/16 00:41 Urine Appearance Clear 11/21/16 00:41 Urine pH 6.0 (5.0-8.0) 11/21/16 00:41 Ur Specific [place] 1.020 (1.005-1.025) 11/21/16 00:41 Urine Protein 2+ (NEGATIVE) H 11/21/16 00:41 Urine Glucose (UA) Negative (NEGATIVE) 11/21/16 00:41 Urine Ketones Negative (NEGATIVE) 11/21/16 00:41 Urine Blood Negative (NEGATIVE) 11/21/16 00:41 Urine Nitrite Negative (NEGATIVE) 11/21/16 00:41 Urine Bilirubin Negative (NEGATIVE) 11/21/16 00:41 Ur Leukocyte Esterase Trace (NEGATIVE) 11/21/16 00:41 Urine RBC 2 /hpf (0-3) 11/21/16 00:41 Urine WBC 7 /hpf (3-5) 11/21/16 00:41 Ur Epithelial Cells Rare /hpf (FEW) 11/21/16 00:41 Urine Bacteria Rare /hpf (NONE SEEN) 11/21/16 00:41 Urine Mucus Rare 11/21/16 00:41 11/20/16 11/21/16 11/21/16 21:59 02:29 11:30 Lactic Acid 3.3 H* 2.7 H* 2.5 H* IMAGING: Chest CT/CTA (11/21/2016): No e/o PE Worsening b/l pulmonary masses and lympadenopathy compared to prior study on Collapse of superior segment LLL (10 x 6.4 x 5cm) which may be post-obstructive due to endobronchial mass Active Medications Albuterol Sulfate (Ventolin 0.083% Nebulizer Soln -) 1 amp NEB Q4H PRN PRN Reason: SHORT OF BREATH/WHEEZING Albuterol/Ipratropium (Duoneb -) 1 amp NEB QIDR [facility] Last Admin: 11/21/16 11:40 Dose: 1 amp Alprazolam (Xanax -) 0.5 mg PO DAILY [facility] Last Admin: 11/21/16 09:51 Dose: 0.5 mg Aspirin (Asa -) 81 mg PO DAILY [facility] Last Admin: 11/21/16 09:49 Dose: 81 mg Atorvastatin Calcium (Lipitor -) 10 mg PO HS [facility] Budesonide/Formoterol Fumarate (Symbicort 160/4.5mcg -) 2 puff IH BID [facility] Last Admin: 11/21/16 15:13 Dose: 2 puff Cholecalciferol (Vitamin D3 -) 1,000 unit PO Q7D [facility] Last Admin: 11/21/16 04:03 Dose: Not Given Enoxaparin Sodium (Lovenox -) 80 mg SQ ONCE ONE Stop: 11/21/16 20:01 Enoxaparin Sodium (Lovenox -) 120 mg SQ DAILY [facility] Sodium Chloride (Normal Saline -) 1,000 mls @ 50 mls/hr IV ASDIR [facility] Stop: 11/21/16 22:14 Last Admin: 11/21/16 14:30 Dose: 50 mls/hr Insulin Aspart (Novolog Vial Sliding Scale -) 1 vial SQ ACHS [facility] PRN Reason: Protocol Insulin Detemir (Levemir Vial) 40 units SQ BID@0700,2200 [facility] Levothyroxine Sodium (Synthroid -) 112 mcg PO DAILY@0700 [facility] Lisinopril (Prinivil) 10 mg PO DAILY [facility] Last Admin: 11/21/16 09:51 Dose: 10 mg Losartan Potassium (Cozaar -) 50 mg PO DAILY [facility] Last Admin: 11/21/16 09:49 Dose: 50 mg Megestrol Acetate (Megace -) 80 mg PO BID [facility] Last Admin: 11/21/16 09:52 Dose: 80 mg Montelukast Sodium (Singulair -) 10 mg PO HS [facility] Nystatin (Nystatin Oral Suspension -) 500,000 units PO Q6HPO [facility] Last Admin: 11/21/16 11:33 Dose: 500,000 units Ondansetron HCl (Zofran -) 8 mg PO Q8H PRN PRN Reason: NAUSEA Oxycodone HCl (Roxicodone -) 10 mg PO Q12H PRN Last Admin: 11/21/16 15:17 Dose: 10 mg Prednisone (Deltasone -) 60 mg PO DAILY [facility] Last Admin: 11/21/16 09:50 Dose: 60 mg Sertraline HCl (Zoloft -) 25 mg PO DAILY [facility] Last Admin: 11/21/16 09:51 Dose: 25 mg Tiotropium [place] (Spiriva -) 1 puff IH DAILY [facility] Last Admin: 11/21/16 14:00 Dose: 1 puff ASSESSMENT/PLAN: 66yo woman with cervical carcinoma with lung mets who presents with asthma exacerbation possible secondary to progression of disease. Her labs are notable for lactic acidosis and leukocytosis, however, there is no clear source of infection. Lower extremity erythema is unlikley to be cellulitis. Chest CT/CTA ruled out PE, but did reveal worsening lung masses and LAD. Elevated lactic acid , which is now downtrending, could be 2/2 to asthma or advancing malignancy. Leukocytosis, which is also downtrending, may likely be reactive from steroids. We agree with discontinuing antibiotics for now, and will continue to observe for signs of infection. -no clear infectious etiology, observe with no antibiotics Dispo: We will continue to follow the patient. Thank you for this consultative opportunity. d/w Dr. Domo Braksdale MD PGY-1 Visit type - Emergency Visit Emergency Visit: No - New Patient This patient is new to me today: Yes Date on this admission: 11/21/16 - Critical Care Critical Care patient: No
--- NOTE | 2016-11-21 13:40 | CONS ---
DATE OF CONSULTATION: 11/21/2016 REFERRING PHYSICIAN: Porsche Santiago M.D. The patient is a 66-year-old female with a past medical history of endometriosis, CA with extensive lung metastasis, asthma, DVT, hypertension, hyperlipidemia, insulin dependent diabetes mellitus, hypothyroidism, and admitted to [facility] with increasing shortness of breath, cough and throat pain. Patient was discharged approximately 2 weeks prior to this secondary to asthma exacerbation. At the time she was treated with steroids and bronchodilators, good clinical response. She was sent home on steroids as well as inhaled bronchodilators. Started developing the above symptoms a couple days ago. Started developing increasing symptoms a few days ago which she presented back to the ER. Denies any chest pain, nausea, vomiting, diaphoresis, or hemoptysis. She is a nonsmoker. There is no history of occupational exposure to chemicals or fumes. PAST MEDICAL HISTORY: Includes endometrial CA with extensive lung metastasis, chronic persistent asthma, history of DVT, hyperlipidemia, hypertension, insulin dependent diabetes mellitus, hypothyroidism, also history of vascular bypass in the left lower extremity 8 years ago. Hysterectomy in 2008, hernia repair and cholecystectomy. SOCIAL HISTORY: Nonsmoker. No occupational exposure. REVIEW OF SYSTEMS: Positive shortness of breath, positive cough, no hemoptysis, no chest pain, no palpitations, no fevers, no chills. Positive sore throat. CURRENT MEDICATIONS: Included prednisone, Zofran, Advair, Cozaar, Prinivil, Lovenox, Zoloft, Megace, DuoNeb, Lipitor, NovoLog, Singulair, nystatin, levothyroxine, cholecalciferol. PHYSICAL EXAMINATION: General: The patient is a well-developed, well-nourished female. Awake, alert, currently in no acute distress. Vital Signs: She is currently afebrile. Blood pressure is 139/71, respiratory rate 20, O2 sat is 98% on 2 L. HEENT: Exam is normal. Normocephalic, atraumatic. Neck: Supple. Heart: Regular, S1, S2. Chest: Bilateral wheezes. Abdomen: Soft, bowel sounds are positive. Extremities: Bilateral lower extremity edema. LABORATORY DATA: WBC is 19.8, hemoglobin 11.8, hematocrit 37.5 with a platelet count of 307,000, INR is 0.96. Venous blood gas pH 7.40, pCO2 of 52, a pO2 of 25, lactate level was 2.7 on admission, repeat pending, BUN 23, creatinine 0.9. Chest CT reveals extensive bilateral lung metastases with atelectatic increase in atelectasis left level of superior segment. IMPRESSION: 1. Acute asthma exacerbation. 2. Extensive endometrial cancer with extensive lung metastases. 3. Left lower lobe atelectasis, possibly segment in the bronchial obstruction. 4. History of deep venous thrombosis. 5. Hypertension. 6. Elevated lactate level. PLAN: Continue on steroids, inhaled bronchodilators, supplemental O2, monitor peak flow, trend lactate, also chest PT. NICOLÁS CELAYA M.D. [id number]
--- NOTE | 2016-11-21 13:55 | PN ---
Teaching Attending Note Name of Resident: Mark Walter ATTENDING PHYSICIAN STATEMENT I saw and evaluated the patient. I reviewed the resident's note and discussed the case with the resident. I agree with the resident's findings and plan as documented. SUBJECTIVE: No fever or chills. Feels her breathing is better compared to yesterday. denies any abd pain. He legs have been swollen and erythematous at base line OBJECTIVE: NAD, AAOx3. MMM. no facial droop CV: RRR Lungs : scattered exp wheezes . prolonged exp phase Abd : soft, TTP in epigastric area . no rebound tenderness or guarding . nl BS Ext: erythema on shins. nl warmth of LE , no increased warmth . ASSESSMENT AND PLAN: 66 y/o lady with multiple medical problems including HTN, DVT, IDDM, hypothyroidism, asthma, and endometrial cancer with lung mets who presented with SOB and was found to have asthma exacerbation 1- Asthma exacerbation : already improved - cont prednisone 60 mg daily - cont NEbs - cont symbicort and spiriva - appreciate Pulm input 2- Elevated lactic acid: I am not sure that patient have sepsis or an infection . lactic acid elevation could be due to increased work of breathing . CT scan of chest , showed ground glass opacity in R lung, but this was evident on previous CT. PNA is unlikely inher LE erythema and edema are chronic , and has no increased warmth. Cellulitis is unlikely. she has no urinary sx . - I dont' find any source of her sepsis . - hold Abx , and wait for ID input . - leukocytosis could be due to steroids use - repeat lactic acid - give 50 cc /hr of NS , x 12 hr and reevaluate ( last admission , she went into heart failure from excessive hydration ) 3- Hypothyroidism: TSH now 0.22 , last admission 7. SYnthropid dose was increased from 100 to 112 last admission. - Decrease dose back to 100 mcg /day . 4- IDDM: takes 40 u of levemir BID . dose was held last night and this am. - give 15 units - depending on sugars, might have to resume 40 BID and SSI 5- h/o DVT, on chronic Lovenox 120 mg daily - placed on 80 BID here . will give tonight's dose and changes to 120 in am . 7- HTN: cont meds Dispo : HLOC
[2016-11-21 13:58] LABS: METAMYELOCYTE 1 % (0-2); PLATELET ESTIMATE ADEQUATE (NORMAL)
[2016-11-21] MEDS: TIOTROPIUM BROMIDE 18 MCG/INH (DEVICE W/ 5 CAPSULES) IH SCH (14:00)
--- NOTE | 2016-11-21 14:42 | EKG ---
Test Reason : Blood Pressure : / mmHG Vent. Rate : 090 BPM Atrial Rate : 090 BPM P-R Int : 104 ms QRS Dur : 120 ms QT Int : 384 ms P-R-T Axes : 051 -50 059 degrees QTc Int : 469 ms POOR DATA QUALITY, INTERPRETATION MAY BE ADVERSELY AFFECTED SINUS RHYTHM WITH SHORT GA RIGHT BUNDLE BRANCH BLOCK LEFT ANTERIOR FASCICULAR BLOCK BIFASCICULAR BLOCK ABNORMAL ECG WHEN COMPARED WITH ECG OF 29-OCT-2016 10:22, NO SIGNIFICANT CHANGE WAS FOUND Confirmed by RUFINO MONTEMAYOR MD ([id number]) on 11/21/2016 2:41:56 PM Referred By: Confirmed By:RUFINO MONTEMAYOR MD
[2016-11-21] MEDS ORDERED: oxyCODONE HCL 5 MG TABLET ONE (15:11)
[2016-11-21] MEDS: BUDESONIDE/FORMETEROL FUMARATE 160/4.5 mcg INHALER IH SCH ×2 (15:13→21:39)
[2016-11-21] MEDS: oxyCODONE HCL 5 MG TABLET PO PRN (15:17)
--- NOTE | 2016-11-21 16:27 | PN ---
Physical Exam: SUBJECTIVE: Patient seen and examined at bedside. Pt complains of shortness of breath and generalized body pain. No other complaints. Pt denies headache, fever , chills, abd pain, nausea, vomiting, diarrheal. OBJECTIVE: Vital Signs Period Temp Pulse Resp BP Sys/Encarnacion Pulse Ox Last 24 Hr 97.6 F-98.4 F 85-99 20-20 61-143/31-73 97-98 GENERAL: The patient is awake, alert, and fully oriented, in no acute distress. cushingoid appearance HEAD: Normal with no signs of trauma. EYES: PERRL, extraocular movements intact, sclera anicteric, conjunctiva clear. No ptosis. ENT: oropharynx clear without exudates, moist mucous membranes. NECK: Trachea midline, full range of motion, supple. LUNGS: Breath sounds equal, clear to auscultation bilaterally, no wheezes, no crackles, no accessory muscle use. HEART: Regular rate and rhythm, normal S1, S2 without murmur, rub or gallop. ABDOMEN: Soft, nontender, nondistended, normoactive bowel sounds, no guarding, no rebound, no hepatosplenomegaly, no masses. EXTREMITIES: good capillary refill. Transmetatarsal amputation of right foot, warm, well-perfused, no edema. NEUROLOGICAL: Cranial nerves II through XII grossly intact. Normal speech, gait not observed. PSYCH: Normal mood, normal affect. SKIN: Warm, dry, normal turgor, no rashes or lesions noted Laboratory Results - last 24 hr 11/21/16 11/21/16 11/21/16 00:41 02:29 06:36 WBC RBC Hgb Hct MCV MCH MCHC RDW Plt Count MPV Neutrophils % Lymphocytes % Metamyelocytes Differential Comment Platelet Estimate Sodium Potassium Chloride Carbon Dioxide Anion Gap BUN Creatinine POC Glucometer 214 Random Glucose Lactic Acid 2.7 H* Calcium TSH Free T4 Urine Color Yellow Urine Appearance Clear Urine pH 6.0 Ur Specific [place] 1.020 Urine Protein 2+ H Urine Glucose (UA) Negative Urine Ketones Negative Urine Blood Negative Urine Nitrite Negative Urine Bilirubin Negative Urine Urobilinogen Negative Ur Leukocyte Esterase Trace Urine RBC 2 Urine WBC 7 Ur Epithelial Cells Rare Urine Bacteria Rare Urine Mucus Rare 11/21/16 11/21/16 11/21/16 07:47 07:47 09:55 WBC 19.8 H RBC 4.65 Hgb 11.8 Hct 37.5 MCV 80.6 MCH 25.4 L MCHC 31.5 L RDW 17.7 H Plt Count 307 MPV 8.7 Neutrophils % 89.0 H Lymphocytes % 10.0 D Metamyelocytes 1 D Differential Comment Manual diff done Platelet Estimate Adequate Sodium 134 L Potassium 4.3 Chloride 97 L Carbon Dioxide 27 Anion Gap 10 BUN 23 H Creatinine 0.9 POC Glucometer Random Glucose 187 H D Lactic Acid Calcium 8.8 TSH 0.22 L D Free T4 1.19 D Cancelled Urine Color Urine Appearance Urine pH Ur Specific [place] Urine Protein Urine Glucose (UA) Urine Ketones Urine Blood Urine Nitrite Urine Bilirubin Urine Urobilinogen Ur Leukocyte Esterase Urine RBC Urine WBC Ur Epithelial Cells Urine Bacteria Urine Mucus 11/21/16 11/21/16 11:09 11:30 WBC RBC Hgb Hct MCV MCH MCHC RDW Plt Count MPV Neutrophils % Lymphocytes % Metamyelocytes Differential Comment Platelet Estimate Sodium Potassium Chloride Carbon Dioxide Anion Gap BUN Creatinine POC Glucometer 345 Random Glucose Lactic Acid 2.5 H* Calcium TSH Free T4 Urine Color Urine Appearance Urine pH Ur Specific [place] Urine Protein Urine Glucose (UA) Urine Ketones Urine Blood Urine Nitrite Urine Bilirubin Urine Urobilinogen Ur Leukocyte Esterase Urine RBC Urine WBC Ur Epithelial Cells Urine Bacteria Urine Mucus Active Medications Generic Name Dose Route Start Last Admin Trade Name Freq PRN Reason Stop Dose Admin Albuterol Sulfate 1 amp 11/21/16 12:19 Ventolin 0.083% Nebulizer Soln - NEB Q4H PRN SHORT OF BREATH/WHEEZING Albuterol/Ipratropium 1 amp 11/21/16 06:00 11/21/16 11:40 Duoneb - NEB 1 amp QIDR [facility] Administration Alprazolam 0.5 mg 11/21/16 10:00 11/21/16 09:51 Xanax - PO 0.5 mg DAILY [facility] Administration Aspirin 81 mg 11/21/16 10:00 11/21/16 09:49 Asa - PO 81 mg DAILY [facility] Administration Atorvastatin Calcium 10 mg 11/21/16 22:00 Lipitor - PO HS [facility] Budesonide/Formoterol Fumarate 2 puff 11/21/16 13:30 11/21/16 15:13 Symbicort 160/4.5mcg - IH 2 puff BID [facility] Administration Cholecalciferol 1,000 unit 11/21/16 02:15 11/21/16 04:03 Vitamin D3 - PO Not Given Q7D [facility] Enoxaparin Sodium 80 mg 11/21/16 20:00 Lovenox - SQ 11/21/16 20:01 ONCE ONE Enoxaparin Sodium 120 mg 11/22/16 10:00 Lovenox - SQ DAILY [facility] Sodium Chloride 1,000 mls @ 50 mls/hr 11/21/16 13:49 11/21/16 14:30 Normal Saline - IV 11/21/16 22:14 50 mls/hr ASDIR [facility] Administration Insulin Aspart 1 vial 11/21/16 16:30 Novolog Vial Sliding Scale - SQ ACHS [facility] Protocol Insulin Detemir 40 units 11/21/16 22:00 Levemir Vial SQ BID@0700,2200 [facility] Levothyroxine Sodium 112 mcg 11/21/16 14:35 Synthroid - PO DAILY@0700 [facility] Lisinopril 10 mg 11/21/16 10:00 11/21/16 09:51 Prinivil PO 10 mg DAILY [facility] Administration Losartan Potassium 50 mg 11/21/16 10:00 11/21/16 09:49 Cozaar - PO 50 mg DAILY [facility] Administration Megestrol Acetate 80 mg 11/21/16 10:00 11/21/16 09:52 Megace - PO 80 mg BID [facility] Administration Montelukast Sodium 10 mg 11/21/16 22:00 Singulair - PO HS [facility] Nystatin 500,000 units 11/21/16 06:00 11/21/16 11:33 Nystatin Oral Suspension - PO 500,000 units Q6HPO [facility] Administration Ondansetron HCl 8 mg 11/21/16 02:07 Zofran - PO Q8H PRN NAUSEA Oxycodone HCl 10 mg 11/21/16 22:00 11/21/16 15:17 Roxicodone - PO 10 mg Q12H PRN Administration Prednisone 60 mg 11/21/16 10:00 11/21/16 09:50 Deltasone - PO 60 mg DAILY [facility] Administration Sertraline HCl 25 mg 11/21/16 10:00 11/21/16 09:51 Zoloft - PO 25 mg DAILY [facility] Administration Tiotropium [place] 1 puff 11/21/16 13:00 11/21/16 14:00 Spiriva - IH 1 puff DAILY [facility] Administration ASSESSMENT/PLAN: 66yo F with PMH of Endometrial Ca with lung mets, asthma, DVT, HTN, HLD, IDDM, hypothyroidism, admitted for asthma exacerbation. #SIRS - as evidenced by HR > 90, RR > 20, WBC > 12, and lactic acidosis. -LA could be 2/2 decreased oxygenation/CA, WBC could be due to steroids -no source of infection definitively identified as of yet - lactic acid trending down, 3.3 -> 2.7 -> 2.5 - empiric Vancomycin 1250mg IVPB once / Aztreonam 1g IVPB once - ID Consult #asthma exacerbation - may be 2/2 lung mets - cont. Montelukast 10mg PO HS - give Duonebs 1 neb QID, 1 neb q4h prn - give Prednisone 60mg po daily - Cushingoid appearance likely 2/2 long-term steroid use for chronic asthma - Pulmonary Consult - chest CTA shows worsening LAD, no PE, collapse of sup aspect of LLL - CXR reveals bilateral pulmonary masses with little interval change since . #oral thrush - Nystatin swish and swallow, Oral Suspension 500,000U PO q6h # Endometrial Ca - hold Tamoxifen Citrate - Onc Consult # IDDM - Levemir 40U SQ q12h insulin, Novolog ISS - cont. poc glucose monitoring #HTN - cont. Lisinopril 10mg PO daily, Lorsartan 50mg po daily # hypercholesterolemia - cont. Atorvastatin 10mg PO HS # hypothyroidism - cont. Synthroid 100mcg PO daily - TSH 0.22, free T4 1.19 # anxiety - cont. Xanax 0.5mg PO daily # Hx of DVT - Lovenox 120mg SQ QD #FEN -NS@50 -lytes WNL -DM diet #PPX -on lovenox Mark Walter MD PGY-1 Visit type - Emergency Visit Emergency Visit: No - New Patient This patient is new to me today: No - Critical Care Critical Care patient: No - Discharge Referral Referred to [facility] No
[2016-11-21] MEDS ORDERED: INSULIN (NOVOLOG) ASPART 100 UNITS/ML 10ML VIAL ONE (18:00)
[2016-11-21] MEDS ORDERED: INSULIN (NOVOLOG) ASPART 100 UNITS/ML 10ML VIAL SQ ONE ×2 (18:15→19:00)
[2016-11-21] MEDS ORDERED: ENOXAPARIN NA (PORCINE) 80 MG/0.8 ML DISP.SYRIN SQ ONE (20:00)
[2016-11-21] MEDS ORDERED: PT OWN MED DRAWER 7, Y5N ONE (21:32)
[2016-11-21] MEDS: ATORVASTATIN CA 10 MG TABLET (FP) PO SCH (21:37)
[2016-11-21] MEDS: ALPRAZolam 0.25 MG TABLET PO SCH (21:37)
[2016-11-21] MEDS: MONTELUKAST NA 10 MG TABLET PO SCH (21:37)
[2016-11-21] MEDS: INSULIN DETEMIR 100 UNITS/ML MDV SQ SCH (21:37)
[2016-11-22] MEDS: ALBUTEROL SO4 2.5/IPRATROPIUM 0.5 INH SOL 3 ML VIAL.NEB. NEB SCH ×5 (00:02→23:31)
[2016-11-22] MEDS: oxyCODONE HCL 5 MG TABLET PO PRN ×2 (05:10→17:23)
--- NOTE | 2016-11-22 06:55 | PN ---
Physical Exam: SUBJECTIVE: Patient seen and examined at bedside. Pt still complains of shortness of breath but states that it is improved since yesterday. Pt generally feels somewhat unwell. No other complaints at this time. Pt denies headache nausea, vomiting, abdominal pain, diarrhea. OBJECTIVE: Vital Signs Period Temp Pulse Resp BP Sys/Encarnacion Pulse Ox Last 24 Hr 98.1 F-98.6 F 93-99 16-20 137-142/69-81 98-98 GENERAL: The patient is awake, alert, and fully oriented, in no acute distress. Cushingoid appearance HEAD: Normal with no signs of trauma. EYES: Sclera anicteric, conjunctiva clear. No ptosis. ENT: oropharynx clear without exudates, moist mucous membranes. NECK: Trachea midline, full range of motion, supple. LUNGS: Breath sounds equal, diffuse wheezing, basilar crackles, no accessory muscle use. HEART: Regular rate and rhythm, normal S1, S2 without murmur, rub or gallop. ABDOMEN: Soft, nontender, nondistended, normoactive bowel sounds, no guarding, no rebound, no hepatosplenomegaly, no masses. EXTREMITIES: good capillary refill. Transmetatarsal amputation of right foot, warm, well-perfused, no edema. NEUROLOGICAL: Cranial nerves II through XII grossly intact. Normal speech, gait not observed. PSYCH: Normal mood, normal affect. SKIN: Warm, dry, normal turgor, no rashes or lesions noted Laboratory Results - last 24 hr 11/21/16 11/21/16 11/21/16 00:41 06:36 07:47 WBC RBC Hgb Hct MCV MCH MCHC RDW Plt Count MPV Neutrophils % Lymphocytes % Metamyelocytes Differential Comment Platelet Estimate Sodium 134 L Potassium 4.3 Chloride 97 L Carbon Dioxide 27 Anion Gap 10 BUN 23 H Creatinine 0.9 POC Glucometer 214 Random Glucose 187 H D Lactic Acid Calcium 8.8 TSH 0.22 L D Free T4 1.19 D Urine Color Yellow Urine Appearance Clear Urine pH 6.0 Ur Specific [place] 1.020 Urine Protein 2+ H Urine Glucose (UA) Negative Urine Ketones Negative Urine Blood Negative Urine Nitrite Negative Urine Bilirubin Negative Urine Urobilinogen Negative Ur Leukocyte Esterase Trace Urine RBC 2 Urine WBC 7 Ur Epithelial Cells Rare Urine Bacteria Rare Urine Mucus Rare 11/21/16 11/21/16 11/21/16 07:47 09:55 11:09 WBC 19.8 H RBC 4.65 Hgb 11.8 Hct 37.5 MCV 80.6 MCH 25.4 L MCHC 31.5 L RDW 17.7 H Plt Count 307 MPV 8.7 Neutrophils % 89.0 H Lymphocytes % 10.0 D Metamyelocytes 1 D Differential Comment Manual diff done Platelet Estimate Adequate Sodium Potassium Chloride Carbon Dioxide Anion Gap BUN Creatinine POC Glucometer 345 Random Glucose Lactic Acid Calcium TSH Free T4 Cancelled Urine Color Urine Appearance Urine pH Ur Specific [place] Urine Protein Urine Glucose (UA) Urine Ketones Urine Blood Urine Nitrite Urine Bilirubin Urine Urobilinogen Ur Leukocyte Esterase Urine RBC Urine WBC Ur Epithelial Cells Urine Bacteria Urine Mucus 11/21/16 11/21/16 11/21/16 11:30 17:00 21:16 WBC RBC Hgb Hct MCV MCH MCHC RDW Plt Count MPV Neutrophils % Lymphocytes % Metamyelocytes Differential Comment Platelet Estimate Sodium Potassium Chloride Carbon Dioxide Anion Gap BUN Creatinine POC Glucometer 315 Random Glucose Lactic Acid 2.5 H* 2.7 H* Calcium TSH Free T4 Urine Color Urine Appearance Urine pH Ur Specific [place] Urine Protein Urine Glucose (UA) Urine Ketones Urine Blood Urine Nitrite Urine Bilirubin Urine Urobilinogen Ur Leukocyte Esterase Urine RBC Urine WBC Ur Epithelial Cells Urine Bacteria Urine Mucus 11/22/16 05:55 WBC RBC Hgb Hct MCV MCH MCHC RDW Plt Count MPV Neutrophils % Lymphocytes % Metamyelocytes Differential Comment Platelet Estimate Sodium Potassium Chloride Carbon Dioxide Anion Gap BUN Creatinine POC Glucometer 160 Random Glucose Lactic Acid Calcium TSH Free T4 Urine Color Urine Appearance Urine pH Ur Specific [place] Urine Protein Urine Glucose (UA) Urine Ketones Urine Blood Urine Nitrite Urine Bilirubin Urine Urobilinogen Ur Leukocyte Esterase Urine RBC Urine WBC Ur Epithelial Cells Urine Bacteria Urine Mucus Active Medications Generic Name Dose Route Start Last Admin Trade Name Freq PRN Reason Stop Dose Admin Albuterol Sulfate 1 amp 11/21/16 12:19 Ventolin 0.083% Nebulizer Soln - NEB Q4H PRN SHORT OF BREATH/WHEEZING Albuterol/Ipratropium 1 amp 11/21/16 06:00 11/22/16 00:02 Duoneb - NEB 1 amp QIDR [facility] Administration Alprazolam 0.5 mg 11/21/16 22:00 11/21/16 21:37 Xanax - PO 0.5 mg BID [facility] Administration Aspirin 81 mg 11/21/16 10:00 11/21/16 09:49 Asa - PO 81 mg DAILY [facility] Administration Atorvastatin Calcium 10 mg 11/21/16 22:00 11/21/16 21:37 Lipitor - PO 10 mg HS [facility]FA Administration Budesonide/Formoterol Fumarate 2 puff 11/21/16 13:30 11/21/16 21:39 Symbicort 160/4.5mcg - IH 2 puff BID [facility] Administration Cholecalciferol 1,000 unit 11/21/16 02:15 11/21/16 04:03 Vitamin D3 - PO Not Given Q7D [facility]FA Enoxaparin Sodium 120 mg 11/22/16 10:00 Lovenox - SQ DAILY [facility] Insulin Aspart 1 vial 11/21/16 16:30 11/21/16 21:38 Novolog Vial Sliding Scale - SQ 8 units ACHS RAFA Administration Protocol Insulin Detemir 40 units 11/21/16 22:00 11/21/16 21:37 Levemir Vial SQ 40 units BID@0700,2200 [facility] Administration Levothyroxine Sodium 112 mcg 11/21/16 14:35 Synthroid - PO DAILY@0700 [facility] Lisinopril 10 mg 11/21/16 10:00 11/21/16 09:51 Prinivil PO 10 mg DAILY [facility] Administration Losartan Potassium 50 mg 11/21/16 10:00 11/21/16 09:49 Cozaar - PO 50 mg DAILY [facility] Administration Megestrol Acetate 80 mg 11/21/16 10:00 11/21/16 21:36 Megace - PO 80 mg BID [facility] Administration Montelukast Sodium 10 mg 11/21/16 22:00 11/21/16 21:37 Singulair - PO 10 mg HS [facility] Administration Nystatin 500,000 units 11/21/16 06:00 11/21/16 23:55 Nystatin Oral Suspension - PO Not Given Q6HPO [facility] Ondansetron HCl 8 mg 11/21/16 02:07 Zofran - PO Q8H PRN NAUSEA Oxycodone HCl 10 mg 11/21/16 22:00 11/22/16 05:10 Roxicodone - PO 10 mg Q12H PRN Administration Prednisone 60 mg 11/21/16 10:00 11/21/16 09:50 Deltasone - PO 60 mg DAILY [facility] Administration Sertraline HCl 25 mg 11/21/16 10:00 11/21/16 09:51 Zoloft - PO 25 mg DAILY [facility] Administration Tiotropium [place] 1 puff 11/21/16 13:00 11/21/16 14:00 Spiriva - IH 1 puff DAILY [facility] Administration ASSESSMENT/PLAN: 66yo F with PMH of Endometrial Ca with lung mets, asthma, DVT, HTN, HLD, IDDM, hypothyroidism, diastolic CHF with preserved EF, admitted for asthma exacerbation. #SIRS - as evidenced by HR > 90, RR > 20, WBC > 12, and lactic acidosis. -LA could be 2/2 decreased oxygenation/CA, WBC could be due to steroids -no source of infection definitively identified as of yet. Legs unlikely as a source as the skin changes are chronic and do not represent cellulitis - lactic acid trending, 3.3 -> 2.7 -> 2.5 -> 5.5 -Lactic acidosis may be due to ACEI/ARB. Hold for now -LD 539, uric acid 6.7 - per ID no antibiotics needed at this time #asthma exacerbation - may be 2/2 lung mets - cont. Montelukast 10mg PO HS - give Duonebs 1 neb QID, 1 neb q4h prn - give Prednisone 60mg po daily - Cushingoid appearance likely 2/2 long-term steroid use for chronic asthma - Pulmonary Consult - chest CTA shows worsening LAD, no PE, collapse of sup aspect of LLL - CXR reveals bilateral pulmonary masses with little interval change since . #oral thrush - Nystatin swish and swallow, Oral Suspension 500,000U PO q6h # Endometrial Ca - hold Tamoxifen Citrate - Onc Consult # IDDM - Levemir 40U SQ q12h insulin, Novolog ISS - cont. poc glucose monitoring #HTN - HOLD Lisinopril 10mg PO daily, Lorsartan 50mg po daily # hypercholesterolemia - cont. Atorvastatin 10mg PO HS # hypothyroidism - cont. Synthroid 100mcg PO daily - TSH 0.22, free T4 1.19 # anxiety - cont. Xanax 0.5mg PO daily # Hx of DVT - Lovenox 120mg SQ QD #FEN -NS@50 -lytes WNL -DM diet #PPX -on lovenox Mark Walter MD PGY-1 Visit type - Emergency Visit Emergency Visit: No - New Patient This patient is new to me today: No - Critical Care Critical Care patient: No - Discharge Referral Referred to [facility] No
[2016-11-22] MEDS: LEVOTHYROXINE NA 112 MCG TABLET (FP) PO SCH (06:56)
[2016-11-22] MEDS: NYSTATIN 500,000 UNITS/5 ML SUSPENSION PO SCH ×3 (06:56→17:25)
[2016-11-22] MEDS: INSULIN DETEMIR 100 UNITS/ML MDV SQ SCH ×2 (06:57→21:42)
[2016-11-22] MEDS: INSULIN SLIDING SCALE (NOVOLOG) 1 VIAL SQ SCH ×4 (06:59→21:52)
[2016-11-22 07:09] LABS: MCH 25.6 pg (25.7-33.7); MCHC 31.7 g/dl (32.0-36.0); MEAN CELL VOLUME 80.7 fl (80-96); MEAN PLT VOLUME 8.7 fl (7.5-11.1); PLATELET COUNT 281 K/MM3 (134-434); WHITE BLOOD COUNT 18.5 K/mm3 (4.0-10.0)
[2016-11-22 07:38] LABS: ALBUMIN 2.9 g/dl (3.4-5.0); ANION GAP 7 (8-16); CALCIUM 9.1 mg/dL (8.5-10.1); CO2 30 mmol/L (21-32); GLUCOSE,RANDOM 137 mg/dL (74-106)
[2016-11-22 07:42] LABS: ALK PHOS 96 U/L (45-117); BILIRUBIN,TOTAL 0.6 mg/dL (0.2-1.0); CREATININE 1.1 mg/dL (0.55-1.02); SGOT/AST 17 U/L (15-37); SGPT/ALT 26 U/L (12-78); TOT PROT 6.2 g/dl (6.4-8.2)
[2016-11-22] MEDS ORDERED: INSULIN DETEMIR 100 UNITS/ML MDV SQ ONE (07:47)
[2016-11-22] MEDS ORDERED: ENOXAPARIN NA (PORCINE) 120 MG/0.8 ML DISP.SYRIN SQ SCH (08:00)
[2016-11-22] MEDS ORDERED: DEXTROSE 50%-WATER - 25 GM/50 ML VIAL IVPUSH ONE (08:23)
[2016-11-22] MEDS ORDERED: INSULIN REGULAR HUMAN 100 UNITS/ML *VIAL IVPUSH ONE (08:23)
[2016-11-22] MEDS ORDERED: ALBUTEROL SO4 0.083% IH SOL 2.5 MG/3 ML VIAL.NEB. NEB ONE (08:24)
[2016-11-22 09:00] LABS: ANISOCYTOSIS 1+; MICROCYTOSIS 1+; PLATELET ESTIMATE ADEQUATE (NORMAL)
[2016-11-22] MEDS ORDERED: PT OWN MED DRAWER 7, Y5N ONE ×4 (09:28→21:29)
[2016-11-22] MEDS ORDERED: DEXTROSE 50%-WATER 50 ML DISP.SYRIN ONE (09:31)
[2016-11-22] MEDS: LOSARTAN POTASSIUM 50 MG TABLET (FP) PO SCH (09:37)
[2016-11-22] MEDS: SERTRALINE HCL 25 MG TABLET (FP) PO SCH (09:37)
[2016-11-22] MEDS: predniSONE 20 MG TABLET (UD) PO SCH (09:37)
[2016-11-22] MEDS: ASPIRIN 81 MG CHEWABLE TABLETS PO SCH (09:37)
[2016-11-22] MEDS: LISINOPRIL 10 MG TABLET (FP) PO SCH (09:37)
[2016-11-22] MEDS: MEGESTROL ACETATE 40 MG TABLET PO SCH ×2 (09:37→21:42)
--- NOTE | 2016-11-22 09:37 | PN ---
Teaching Attending Note Name of Resident: Cindy Barksdale ATTENDING PHYSICIAN STATEMENT I saw and evaluated the patient. I reviewed the resident's note and discussed the case with the resident. I agree with the resident's findings and plan as documented. SUBJECTIVE: well known to me from prior visits continues to wheeze OBJECTIVE: ASSESSMENT AND PLAN: note is for 11/21/16 I saw the patient in consultation yesterday but was not able to document the note agree with plan per resident discussed at length with Dr Morrell as well no infectious source noted to explain her lactic acidosis suspect leukocytosis due to steroids f/u cultures and observe off antibiotics to continue treatment of copd exacerbation pen allergy- tolerates cephalosporins metastatic endometrial cancer with lung mets reviewed plan with patient as well
[2016-11-22] MEDS: BUDESONIDE/FORMETEROL FUMARATE 160/4.5 mcg INHALER IH SCH ×2 (09:38→21:43)
[2016-11-22] MEDS: TIOTROPIUM BROMIDE 18 MCG/INH (DEVICE W/ 5 CAPSULES) IH SCH (09:38)
[2016-11-22] MEDS: ALPRAZolam 0.25 MG TABLET PO SCH ×2 (09:53→21:39)
[2016-11-22] MEDS: ENOXAPARIN NA (PORCINE) 120 MG/0.8 ML DISP.SYRIN SQ SCH (09:53)
[2016-11-22] MEDS ORDERED: SODIUM CHLORIDE 1,000 ML IV SCH (10:00)
[2016-11-22 10:39] LABS: ANION GAP 10 (8-16); CALCIUM 9.1 mg/dL (8.5-10.1); CO2 28 mmol/L (21-32); CREATININE 1.1 mg/dL (0.55-1.02); GLUCOSE,RANDOM 170 mg/dL (74-106); LDH 539 U/L (84-246); URIC ACID 6.7 mg/dL (2.6-7.2)
--- NOTE | 2016-11-22 11:13 | PN ---
Physical Exam: SUBJECTIVE: Patient seen and examined. Continues have SOB and chest tightness. Could not complete morning washing up due to SOB. OBJECTIVE: Vital Signs Period Temp Pulse Resp BP Sys/Encarnacion Pulse Ox Last 24 Hr 98.1 F-98.6 F 93-98 16-20 137-142/69-81 98 GENERAL: Cushingoid, Awake, alert, and fully oriented, in no acute distress. HEENT:sclera anicteric, conjunctiva clear, b/l enlarged non-tender parotids; oropharynx: small white exudate on R soft palate, mmm NECK: supple, no cervical LAD LUNGS: b/l expiratory wheezing, no accessory muscle use. HEART: rrr, normal S1/S2 without murmur, rub or gallop. ABDOMEN: Soft, ntnd, normoactive bowel sounds LOWER EXTREMITIES:2+ DP/PT pulses b/l, 2+ pitting edema b/l NEUROLOGICAL: Grossly intact, not formally tested. SKIN: Warm, dry, normal turgor; patchy erythema on anterior shins, no increased warmth, non-tender to touch CBC, BMP 11/22/16 06:30 11/22/16 09:55 Laboratory Tests 11/20/16 11/21/16 11/21/16 11/22/16 11/22/16 21:59 02:29 11:30 06:30 09:55 Lactic Acid 3.3 H* 2.7 H* 2.5 H* 3.4 H* 5.5 H* Microbiology 11/21/16 00:41 Urine - Urine Clean Catch Urine Culture - Final Contaminated: Please Repeat 11/20/16 21:59 Blood - Peripheral Venous Blood Culture - Preliminary NO GROWTH OBTAINED AFTER 24 HOURS, INCUBATION TO CONTINUE FOR 4 DAYS. 11/20/16 21:59 Blood - Peripheral Venous Blood Culture - Preliminary NO GROWTH OBTAINED AFTER 24 HOURS, INCUBATION TO CONTINUE FOR 4 DAYS. Active Medications Albuterol Sulfate (Ventolin 0.083% Nebulizer Soln -) 1 amp NEB Q4H PRN PRN Reason: SHORT OF BREATH/WHEEZING Albuterol/Ipratropium (Duoneb -) 1 amp NEB QIDR [facility] Last Admin: 11/22/16 06:57 Dose: 1 amp Alprazolam (Xanax -) 0.5 mg PO BID [facility] Last Admin: 11/22/16 09:53 Dose: 0.5 mg Aspirin (Asa -) 81 mg PO DAILY [facility] Last Admin: 11/22/16 09:37 Dose: 81 mg Atorvastatin Calcium (Lipitor -) 10 mg PO HS [facility] Last Admin: 11/21/16 21:37 Dose: 10 mg Budesonide/Formoterol Fumarate (Symbicort 160/4.5mcg -) 2 puff IH BID [facility] Last Admin: 11/22/16 09:38 Dose: 2 puff Cholecalciferol (Vitamin D3 -) 1,000 unit PO Q7D [facility] Last Admin: 11/21/16 04:03 Dose: Not Given Enoxaparin Sodium (Lovenox -) 120 mg SQ DAILY [facility] Last Admin: 11/22/16 09:53 Dose: 120 mg Sodium Chloride (Normal Saline -) 1,000 mls @ 50 mls/hr IV ASDIR [facility] Stop: 11/23/16 09:54 Insulin Aspart (Novolog Vial Sliding Scale -) 1 vial SQ ACHS [facility] PRN Reason: Protocol Last Admin: 11/22/16 06:59 Dose: 2 units Insulin Detemir (Levemir Vial) 40 units SQ BID@0700,2200 [facility] Last Admin: 11/22/16 06:57 Dose: 40 units Levothyroxine Sodium (Synthroid -) 112 mcg PO DAILY@0700 [facility] Last Admin: 11/22/16 06:56 Dose: 112 mcg Lisinopril (Prinivil) 10 mg PO DAILY [facility] Last Admin: 11/22/16 09:37 Dose: 10 mg Losartan Potassium (Cozaar -) 50 mg PO DAILY [facility] Last Admin: 11/22/16 09:37 Dose: 50 mg Megestrol Acetate (Megace -) 80 mg PO BID [facility] Last Admin: 11/22/16 09:37 Dose: 80 mg Montelukast Sodium (Singulair -) 10 mg PO HS [facility] Last Admin: 11/21/16 21:37 Dose: 10 mg Nystatin (Nystatin Oral Suspension -) 500,000 units PO Q6HPO [facility] Last Admin: 11/22/16 06:56 Dose: 500,000 units Ondansetron HCl (Zofran -) 8 mg PO Q8H PRN PRN Reason: NAUSEA Oxycodone HCl (Roxicodone -) 10 mg PO Q12H PRN Last Admin: 11/22/16 05:10 Dose: 10 mg Prednisone (Deltasone -) 60 mg PO DAILY [facility] Last Admin: 11/22/16 09:37 Dose: 60 mg Sertraline HCl (Zoloft -) 25 mg PO DAILY [facility] Last Admin: 11/22/16 09:37 Dose: 25 mg Tiotropium [place] (Spiriva -) 1 puff IH DAILY [facility] Last Admin: 11/22/16 09:38 Dose: 1 puff ASSESSMENT/PLAN: 66yo woman with PMH of cervical carcinoma with lung mets who presents with asthma exacerbation possibly secondary to progression of disease and lactic acidosis of unclear etiology. Continues to have no signs of infection; pt remains afebrile with downtrending leukocytosis, and blood cultures have no growth x 48hours. No antibiotics are needed at this time. d/w Dr. Domo Barksdale MD PGY-1 Visit type - Emergency Visit Emergency Visit: No - New Patient This patient is new to me today: No - Critical Care Critical Care patient: No
--- NOTE | 2016-11-22 12:17 | PN ---
Teaching Attending Note Name of Resident: Mark Walter ATTENDING PHYSICIAN STATEMENT I saw and evaluated the patient. I reviewed the resident's note and discussed the case with the resident. I agree with the resident's findings and plan as documented. SUBJECTIVE: She feels better in terms of her breathing . has no fever or chills, has no pain in legs or in Abd. OBJECTIVE: NAD, AAOx3. MMM. no facial droop CV: RRR Lungs : scattered exp wheezes . prolonged exp phase . No crackles Abd : soft, TTP in epigastric area . no rebound tenderness or guarding . nl BS Ext: erythema on shins. nl warmth of LE ,L leg circumference > R ( chronically per pt ) ASSESSMENT AND PLAN: 66 y/o lady with multiple medical problems including HTN, DVT, IDDM, hypothyroidism, asthma, and endometrial cancer with lung mets who presented with SOB and was found to have asthma exacerbation 1- Asthma exacerbation : improved - cont prednisone 60 mg daily - cont NEbs - cont symbicort and spiriva 2- Lactic acidosis : Lactic acid cont increasing despite the well appearance of the patient. there is no indication of infection . I suspect Type B lactic acidosis probably related to her Solid tumor and Albuterol Nebs . - hydrate gently x 24 hr, and then will stop IVF to avoid fluid overload ( has diastolic heart failure ) - hold off Abx - follow cx 3- Hyperkalemia : likely due to mild SARAH , and pt has been given Lisinopril and losartan here - was treated this am - follow results and dc lisinopril and hold losartan 4- IDDM: - cont levemir 40 BID , - cont SSI 5- H/o DVT, - cont home dose lovenox 120 daily 7- HTN: - hold losartan . - dc lisinopril which was accidentally given 8- Hypothyroidism: - cont decreased dose of synthroid Dispo : HLOC
[2016-11-22] MEDS ORDERED: ONDANSETRON 4 MG TABLET PO ONE (13:02)
--- NOTE | 2016-11-22 15:11 | PN ---
Teaching Attending Note Name of Resident: Cindy Barksdale ATTENDING PHYSICIAN STATEMENT I saw and evaluated the patient. I reviewed the resident's note and discussed the case with the resident. I agree with the resident's findings and plan as documented. SUBJECTIVE: feels lousy, requesting change to her outpt meds for pain and anxiety OBJECTIVE: Vital Signs Period Temp Pulse Resp BP Sys/Encarnacion Pulse Ox Last 24 Hr 98.1 F-98.4 F 93-118 16-18 117-148/57-83 98-98 cushingoid cor-rrr lungs clear abd soft,nt ext no edema venous stasis unchanged CBC, BMP 11/22/16 06:30 11/22/16 09:55 Microbiology 11/21/16 00:41 Urine - Urine Clean Catch Urine Culture - Final Contaminated: Please Repeat 11/20/16 21:59 Blood - Peripheral Venous Blood Culture - Preliminary NO GROWTH OBTAINED AFTER 24 HOURS, INCUBATION TO CONTINUE FOR 4 DAYS. 11/20/16 21:59 Blood - Peripheral Venous Blood Culture - Preliminary NO GROWTH OBTAINED AFTER 24 HOURS, INCUBATION TO CONTINUE FOR 4 DAYS. ASSESSMENT AND PLAN: lactic acidosis asthma exacerbation atelectasis improved metastatic cancer management per primary service remains off antibiotics please call back if needed
[2016-11-22 16:37] LABS: ALBUMIN 2.8 g/dl (3.4-5.0); ANION GAP 11 (8-16); BILIRUBIN,TOTAL 0.3 mg/dL (0.2-1.0); CALCIUM 8.4 mg/dL (8.5-10.1); CO2 26 mmol/L (21-32); CREATININE 1.1 mg/dL (0.55-1.02); GLUCOSE,RANDOM 263 mg/dL (74-106); SGOT/AST 20 U/L (15-37); SGPT/ALT 28 U/L (12-78); TOT PROT 6.1 g/dl (6.4-8.2)
[2016-11-22 16:38] LABS: ALK PHOS 99 U/L (45-117)
[2016-11-22] MEDS ORDERED: INSULIN (NOVOLOG) ASPART 100 UNITS/ML 10ML VIAL ONE ×3 (17:17→21:52)
[2016-11-22] MEDS: ACETAMINOPHEN 325 MG TABLET (FP) PO PRN ×2 (17:24→22:22)
[2016-11-22] MEDS: ATORVASTATIN CA 10 MG TABLET (FP) PO SCH (21:39)
[2016-11-22] MEDS: MONTELUKAST NA 10 MG TABLET PO SCH (21:43)
[2016-11-23] MEDS: NYSTATIN 500,000 UNITS/5 ML SUSPENSION PO SCH ×4 (01:00→17:26)
[2016-11-23] MEDS: oxyCODONE HCL 5 MG TABLET PO PRN ×2 (06:32→21:21)
[2016-11-23] MEDS: LEVOTHYROXINE NA 112 MCG TABLET (FP) PO SCH (06:32)
[2016-11-23] MEDS: ACETAMINOPHEN 325 MG TABLET (FP) PO PRN (06:36)
[2016-11-23] MEDS: INSULIN SLIDING SCALE (NOVOLOG) 1 VIAL SQ SCH ×4 (06:37→21:25)
[2016-11-23] MEDS: ALBUTEROL SO4 2.5/IPRATROPIUM 0.5 INH SOL 3 ML VIAL.NEB. NEB SCH ×2 (06:50→11:42)
[2016-11-23] MEDS: INSULIN DETEMIR 100 UNITS/ML MDV SQ SCH ×2 (06:54→21:25)
[2016-11-23 07:37] LABS: MCH 25.9 pg (25.7-33.7); MEAN CELL VOLUME 80.9 fl (80-96); MEAN PLT VOLUME 8.8 fl (7.5-11.1); PLATELET COUNT 256 K/MM3 (134-434); RDW 17.8 % (11.6-15.6); WHITE BLOOD COUNT 16.3 K/mm3 (4.0-10.0)
[2016-11-23 07:42] LABS: ALBUMIN 2.7 g/dl (3.4-5.0); ANION GAP 8 (8-16); CALCIUM 8.7 mg/dL (8.5-10.1); CO2 30 mmol/L (21-32); GLUCOSE,RANDOM 122 mg/dL (74-106); SGOT/AST 15 U/L (15-37); SGPT/ALT 25 U/L (12-78)
[2016-11-23 07:44] LABS: ALK PHOS 87 U/L (45-117); BILIRUBIN,TOTAL 0.4 mg/dL (0.2-1.0); CREATININE 0.9 mg/dL (0.55-1.02)
[2016-11-23] MEDS: MEGESTROL ACETATE 40 MG TABLET PO SCH ×2 (09:57→21:21)
[2016-11-23] MEDS: TIOTROPIUM BROMIDE 18 MCG/INH (DEVICE W/ 5 CAPSULES) IH SCH (09:57)
[2016-11-23] MEDS: SERTRALINE HCL 25 MG TABLET (FP) PO SCH (09:58)
[2016-11-23] MEDS: ALPRAZolam 0.25 MG TABLET PO SCH ×2 (09:58→21:22)
[2016-11-23] MEDS: ASPIRIN 81 MG CHEWABLE TABLETS PO SCH (09:58)
[2016-11-23] MEDS: predniSONE 20 MG TABLET (UD) PO SCH (09:58)
[2016-11-23] MEDS: ENOXAPARIN NA (PORCINE) 120 MG/0.8 ML DISP.SYRIN SQ SCH (09:59)
[2016-11-23] MEDS ORDERED: amLODIPine BESYLATE 5 MG TABLET (FP) PO SCH (10:00)
[2016-11-23] MEDS: BUDESONIDE/FORMETEROL FUMARATE 160/4.5 mcg INHALER IH SCH ×2 (10:00→21:22)
--- NOTE | 2016-11-23 12:33 | PN ---
Progress Note, Physician History of Present Illness: PULMONARY ALERT,OOB-CHAIR,LESS DYSPNEIC,+ COUGH NON-PRODUCTIVE - Current Medication List Current Medications: Active Medications Acetaminophen (Tylenol -) 650 mg PO Q6H PRN PRN Reason: FEVER OR PAIN Last Admin: 11/23/16 06:36 Dose: 650 mg Albuterol Sulfate (Ventolin 0.083% Nebulizer Soln -) 1 amp NEB Q4H PRN PRN Reason: SHORT OF BREATH/WHEEZING Albuterol/Ipratropium (Duoneb -) 1 amp NEB QIDR [facility] Last Admin: 11/23/16 11:42 Dose: 1 amp Alprazolam (Xanax -) 0.5 mg PO BID [facility] Last Admin: 11/23/16 09:58 Dose: 0.5 mg Amlodipine Besylate (Norvasc -) 5 mg PO DAILY [facility] Last Admin: 11/23/16 09:58 Dose: 5 mg Aspirin (Asa -) 81 mg PO DAILY [facility] Last Admin: 11/23/16 09:58 Dose: 81 mg Atorvastatin Calcium (Lipitor -) 10 mg PO HS [facility] Last Admin: 11/22/16 21:39 Dose: 10 mg Budesonide/Formoterol Fumarate (Symbicort 160/4.5mcg -) 2 puff IH BID [facility] Last Admin: 11/23/16 10:00 Dose: 2 puff Cholecalciferol (Vitamin D3 -) 1,000 unit PO Q7D [facility] Last Admin: 11/21/16 04:03 Dose: Not Given Enoxaparin Sodium (Lovenox -) 120 mg SQ DAILY [facility] Last Admin: 11/23/16 09:59 Dose: 120 mg Insulin Aspart (Novolog Vial Sliding Scale -) 1 vial SQ ACHS [facility] PRN Reason: Protocol Last Admin: 11/23/16 12:12 Dose: 2 units Insulin Detemir (Levemir Vial) 40 units SQ BID@0700,2200 [facility] Last Admin: 11/23/16 06:54 Dose: 40 units Levothyroxine Sodium (Synthroid -) 100 mcg PO DAILY@0700 [facility] Megestrol Acetate (Megace -) 80 mg PO BID [facility] Last Admin: 11/23/16 09:57 Dose: 80 mg Montelukast Sodium (Singulair -) 10 mg PO HS [facility] Last Admin: 11/22/16 21:43 Dose: 10 mg Nystatin (Nystatin Oral Suspension -) 500,000 units PO Q6HPO [facility] Last Admin: 11/23/16 12:12 Dose: 500,000 units Ondansetron HCl (Zofran -) 8 mg PO Q8H PRN PRN Reason: NAUSEA Last Admin: 11/22/16 13:11 Dose: 8 mg Oxycodone HCl (Roxicodone -) 10 mg PO Q12H PRN Last Admin: 11/23/16 06:32 Dose: 10 mg Prednisone (Deltasone -) 60 mg PO DAILY [facility] Last Admin: 11/23/16 09:58 Dose: 60 mg Sertraline HCl (Zoloft -) 25 mg PO DAILY [facility] Last Admin: 11/23/16 09:58 Dose: 25 mg Tiotropium [place] (Spiriva -) 1 puff IH DAILY [facility] Last Admin: 11/23/16 09:57 Dose: 1 puff - Objective Vital Signs: Vital Signs Temperature 98.6 F 11/23/16 10:03 Pulse Rate 100 H 11/23/16 11:42 Respiratory Rate 22 11/23/16 10:03 Blood Pressure 123/66 11/23/16 10:03 O2 Sat by Pulse Oximetry (%) 99 11/23/16 11:42 Constitutional: Yes: Well Nourished, Calm Eyes: Yes: WNL HENT: Yes: WNL Neck: Yes: WNL Cardiovascular: Yes: Regular Rate and Rhythm, S1, S2 Respiratory: Yes: Wheezes (BILATERAL WHEEZES) Gastrointestinal: Yes: Normal Bowel Sounds, Soft Extremities: Yes: WNL Edema: Yes Labs: CBC, BMP 11/23/16 05:35 11/23/16 05:35 INR, PTT INR 0.96 (0.82-1.09) 11/20/16 20:20 Problem List - Problems (1) Acute asthma exacerbation Code(s): J45.901 - UNSPECIFIED ASTHMA WITH (ACUTE) EXACERBATION (2) Cervical cancer Code(s): C53.9 - MALIGNANT NEOPLASM OF CERVIX UTERI, UNSPECIFIED (3) Chronic steroid use Code(s): WJA3719 - (4) Endometrial cancer Code(s): C54.1 - MALIGNANT NEOPLASM OF ENDOMETRIUM (5) History of DVT of lower extremity Code(s): Z86.718 - PERSONAL HISTORY OF OTHER VENOUS THROMBOSIS AND EMBOLISM (6) Hyperlipidemia Code(s): E78.5 - HYPERLIPIDEMIA, UNSPECIFIED Qualifiers: Hyperlipidemia type: unspecified Qualified Code(s): E78.5 - Hyperlipidemia, unspecified (7) Hypertension Code(s): I10 - ESSENTIAL (PRIMARY) HYPERTENSION Qualifiers: Hypertension type: essential hypertension Qualified Code(s): I10 - Essential (primary) hypertension (8) Hypothyroidism Code(s): E03.9 - HYPOTHYROIDISM, UNSPECIFIED Qualifiers: Hypothyroidism type: unspecified Qualified Code(s): E03.9 - Hypothyroidism, unspecified (9) Metastatic disease Code(s): C79.9 - SECONDARY MALIGNANT NEOPLASM OF UNSPECIFIED SITE (10) Obesity Code(s): E66.9 - OBESITY, UNSPECIFIED Assessment/Plan IMP ACUTE ASTHMA EXACERBATION ENDOMETRIAL CA WITH EXTENSIVE LUNG METS HTN HLD HYPOTHYROIDISM PVD H/O DVT PLAN STEROIDS INHALED BRONCHODILATORS ADD MUCOMYST O2 MONITOR PEAK FLOW CHEST PT DR CELAYA Problem List - Problems (1) Acute asthma exacerbation Code(s): J45.901 - UNSPECIFIED ASTHMA WITH (ACUTE) EXACERBATION (2) Cervical cancer Code(s): C53.9 - MALIGNANT NEOPLASM OF CERVIX UTERI, UNSPECIFIED (3) Chronic steroid use Code(s): [id number] - (4) Endometrial cancer Code(s): C54.1 - MALIGNANT NEOPLASM OF ENDOMETRIUM (5) History of DVT of lower extremity Code(s): Z86.718 - PERSONAL HISTORY OF OTHER VENOUS THROMBOSIS AND EMBOLISM (6) Hyperlipidemia Code(s): E78.5 - HYPERLIPIDEMIA, UNSPECIFIED Qualifiers: Hyperlipidemia type: unspecified Qualified Code(s): E78.5 - Hyperlipidemia, unspecified (7) Hypertension Code(s): I10 - ESSENTIAL (PRIMARY) HYPERTENSION Qualifiers: Hypertension type: essential hypertension Qualified Code(s): I10 - Essential (primary) hypertension (8) Hypothyroidism Code(s): E03.9 - HYPOTHYROIDISM, UNSPECIFIED Qualifiers: Hypothyroidism type: unspecified Qualified Code(s): E03.9 - Hypothyroidism, unspecified (9) Metastatic disease Code(s): C79.9 - SECONDARY MALIGNANT NEOPLASM OF UNSPECIFIED SITE (10) Obesity Code(s): E66.9 - OBESITY, UNSPECIFIED
[2016-11-23] MEDS ORDERED: PT OWN MED DRAWER 7, Y5N ONE ×2 (13:17→21:05)
[2016-11-23 14:43] LABS: METAMYELOCYTE 1 % (0-2); PLATELET ESTIMATE ADEQUATE (NORMAL)
[2016-11-23] MEDS: ACETYLCYSTEINE 20% 200MG/ML 4 ML VIAL *FOR ORAL / INH USE ONLY NEB SCH ×2 (17:25→23:41)
[2016-11-23] MEDS ORDERED: ACETYLCYSTEINE 20% 200MG/ML 4 ML VIAL *FOR ORAL / INH USE ONLY ONE (17:29)
[2016-11-23] MEDS ORDERED: ALBUTEROL SO4 0.083% IH SOL 2.5 MG/3 ML VIAL.NEB. NEB SCH ×2 (18:00)
[2016-11-23] MEDS ORDERED: ACETYLCYSTEINE 20% 200MG/ML 4 ML VIAL *FOR ORAL / INH USE ONLY NEB SCH ×2 (18:00)
--- NOTE | 2016-11-23 18:25 | PN ---
Teaching Attending Note Name of Resident: Mark Walter ATTENDING PHYSICIAN STATEMENT I saw and evaluated the patient. I reviewed the resident's note and discussed the case with the resident. I agree with the resident's findings and plan as documented. SUBJECTIVE: no fever or chills .breathing feels better . feels a lot of mucus OBJECTIVE: NAD, AAOx3. MMM. no facial droop CV: RRR Lungs : scattered exp wheezes . prolonged exp phase . No crackles Ext: erythema on shins. nl warmth of LE ,L leg circumference > R ASSESSMENT AND PLAN: 66 y/o lady with multiple medical problems including HTN, DVT, IDDM, hypothyroidism, asthma, and endometrial cancer with lung mets who presented with SOB and was found to have asthma exacerbation 1- Asthma exacerbation : peak flow 200 although her sx have improved - cont prednisone 60 mg daily , hopefully can reduce tomorrow - cont NEbs - cont symbicort and spiriva - Mucomyst added 2- Lactic acidosis : likely type B lactic acidosis due to her Solid tumor and Albuterol Nebs . - Dc IVF as sh ehas D CHF . - repeat Lactate in am - hold off Abx - blood cx neg to date 3- Hyperkalemia : resolved 4- IDDM: - levemir 40 BID - cont SSI 5- H/o DVT, - cont home dose lovenox 120 daily 7- HTN: - can resume losartan in am 8- Hypothyroidism: - cont decreased dose of synthroid
--- NOTE | 2016-11-23 18:51 | PN ---
Physical Exam: SUBJECTIVE: Patient seen and examined at bedside. Pt still complains of shortness of breath but states that it is improved since yesterday. Pt generally feels somewhat unwell. No other complaints at this time. Pt denies headache nausea, vomiting, abdominal pain, diarrhea. OBJECTIVE: Vital Signs Period Temp Pulse Resp BP Sys/Encarnacion Pulse Ox Last 24 Hr 98.2 F-98.8 F 87-106 18-22 123-146/61-69 99-100 GENERAL: The patient is awake, alert, and fully oriented, in no acute distress. Cushingoid appearance HEAD: Normal with no signs of trauma. EYES: Sclera anicteric, conjunctiva clear. No ptosis. ENT: oropharynx clear without exudates, moist mucous membranes. NECK: Trachea midline, full range of motion, supple. LUNGS: Breath sounds equal, diffuse wheezing, fine basilar crackles, no accessory muscle use. HEART: Regular rate and rhythm, normal S1, S2 without murmur, rub or gallop. ABDOMEN: Soft, nontender, nondistended, normoactive bowel sounds, no guarding, no rebound, no hepatosplenomegaly, no masses. EXTREMITIES: good capillary refill. Transmetatarsal amputation of right foot, warm, well-perfused, no edema. NEUROLOGICAL: Cranial nerves II through XII grossly intact. Normal speech, gait not observed. PSYCH: Normal mood, normal affect. SKIN: Warm, dry, normal turgor, no rashes or lesions noted Laboratory Results - last 24 hr 11/22/16 11/23/16 11/23/16 21:23 05:35 05:35 WBC 16.3 H RBC 4.26 Hgb 11.0 Hct 34.5 MCV 80.9 MCH 25.9 MCHC 32.0 RDW 17.8 H Plt Count 256 MPV 8.8 Neutrophils % 62.0 Lymphocytes % 26.0 D Monocytes % 10.0 Eosinophils % 1.0 D Metamyelocytes 1 Differential Comment Manual diff done Platelet Estimate Adequate Sodium 137 Potassium 4.8 Chloride 99 Carbon Dioxide 30 Anion Gap 8 BUN 25 H Creatinine 0.9 Creat Clearance w eGFR > 60 POC Glucometer 336 Random Glucose 122 H D Lactic Acid Calcium 8.7 Total Bilirubin 0.4 D AST 15 D ALT 25 Alkaline Phosphatase 87 Total Protein 6.0 L Albumin 2.7 L 11/23/16 11/23/1617 06:11 10:50 12:07 WBC RBC Hgb Hct MCV MCH MCHC RDW Plt Count MPV Neutrophils % Lymphocytes % Monocytes % Eosinophils % Metamyelocytes Differential Comment Platelet Estimate Sodium Potassium Chloride Carbon Dioxide Anion Gap BUN Creatinine Creat Clearance w eGFR POC Glucometer 136 170 Random Glucose Lactic Acid 3.0 H* Calcium Total Bilirubin AST ALT Alkaline Phosphatase Total Protein Albumin 11/23/16 17:17 WBC RBC Hgb Hct MCV MCH MCHC RDW Plt Count MPV Neutrophils % Lymphocytes % Monocytes % Eosinophils % Metamyelocytes Differential Comment Platelet Estimate Sodium Potassium Chloride Carbon Dioxide Anion Gap BUN Creatinine Creat Clearance w eGFR POC Glucometer 260 Random Glucose Lactic Acid Calcium Total Bilirubin AST ALT Alkaline Phosphatase Total Protein Albumin Active Medications Generic Name Dose Route Start Last Admin Trade Name Freq PRN Reason Stop Dose Admin Acetaminophen 650 mg 11/22/16 13:58 11/23/16 06:36 Tylenol - PO 650 mg Q6H PRN Administration FEVER OR PAIN Acetylcysteine 0 mg 11/23/16 18:00 Mucomyst 20 Oral / Inh Use Only* NEB QIDR RAFA Albuterol Sulfate 1 amp 11/21/16 12:19 Ventolin 0.083% Nebulizer Soln - NEB Q4H PRN SHORT OF BREATH/WHEEZING Albuterol Sulfate 0 amp 11/23/16 18:00 Ventolin 0.083% Nebulizer Soln - NEB QIDR RAFA Alprazolam 0.5 mg 11/23/16 22:00 Xanax - PO TID RAFA Amlodipine Besylate 5 mg 11/23/16 10:00 11/23/16 09:58 Norvasc - PO 5 mg DAILY RAFA Administration Aspirin 81 mg 11/21/16 10:00 11/23/16 09:58 Asa - PO 81 mg DAILY RAFA Administration Atorvastatin Calcium 10 mg 11/21/16 22:00 11/22/16 21:39 Lipitor - PO 10 mg HS RAFA Administration Budesonide/Formoterol Fumarate 2 puff 11/21/16 13:30 11/23/16 10:00 Symbicort 160/4.5mcg - IH 2 puff BID RAFA Administration Cholecalciferol 1,000 unit 11/21/16 02:15 11/21/16 04:03 Vitamin D3 - PO Not Given Q7D RAFA Enoxaparin Sodium 120 mg 11/22/16 10:00 11/23/16 09:59 Lovenox - SQ 120 mg DAILY RAFA Administration Insulin Aspart 1 vial 11/21/16 16:30 11/23/16 17:21 Novolog Vial Sliding Scale - SQ 6 units ACHS RAFA Administration Protocol Insulin Detemir 40 units 11/21/16 22:00 11/23/16 06:54 Levemir Vial SQ 40 units BID@0700,2200 RAFA Administration Levothyroxine Sodium 100 mcg 11/24/16 07:00 Synthroid - PO DAILY@0700 RAFA Megestrol Acetate 80 mg 11/21/16 10:00 11/23/16 09:57 Megace - PO 80 mg BID RAFA Administration Montelukast Sodium 10 mg 11/21/16 22:00 11/22/16 21:43 Singulair - PO 10 mg HS RAFA Administration Nystatin 500,000 units 11/21/16 06:00 11/23/16 17:26 Nystatin Oral Suspension - PO 500,000 units Q6HPO RAFA Administration Ondansetron HCl 8 mg 11/21/16 02:07 11/22/16 13:11 Zofran - PO 8 mg Q8H PRN Administration NAUSEA Oxycodone HCl 10 mg 11/21/16 22:00 11/23/16 06:32 Roxicodone - PO 10 mg Q12H PRN Administration Prednisone 60 mg 11/21/16 10:00 11/23/16 09:58 Deltasone - PO 60 mg DAILY RAFA Administration Sertraline HCl 25 mg 11/21/16 10:00 11/23/16 09:58 Zoloft - PO 25 mg DAILY RAFA Administration Tiotropium [place] 1 puff 11/21/16 13:00 11/23/16 09:57 Spiriva - IH 1 puff DAILY RAFA Administration ASSESSMENT/PLAN: 66yo F with PMH of Endometrial Ca with lung mets, asthma, DVT, HTN, HLD, IDDM, hypothyroidism, diastolic CHF with preserved EF, admitted for asthma exacerbation. #SIRS - as evidenced by HR > 90, RR > 20, WBC > 12, and lactic acidosis. -LA likely 2/2 CA, WBC could be due to steroids -no source of infection. Legs unlikely as a source as the skin changes are chronic and do not represent cellulitis - lactic acid trending, 3.3 -> 2.7 -> 2.5 -> 5.5 -> 2.7 -> 3.0 #asthma exacerbation - may be 2/2 lung mets - cont. Montelukast 10mg PO HS - give Duonebs 1 neb QID, 1 neb q4h prn - give Prednisone 60mg po daily - Cushingoid appearance likely 2/2 long-term steroid use for chronic asthma -peak flow 200 yesterday and today - Pulmonary Consult - chest CTA shows worsening LAD, no PE, collapse of sup aspect of LLL - CXR reveals bilateral pulmonary masses with little interval change since . #oral thrush - Nystatin swish and swallow, Oral Suspension 500,000U PO q6h # Endometrial Ca - hold Tamoxifen Citrate -Will resume on d/c - Onc Consult # IDDM - Levemir 40U SQ q12h insulin, Novolog ISS - cont. poc glucose monitoring #HTN - HOLD Lisinopril -stop amlodipine -restart Lorsartan # hypercholesterolemia - cont. Atorvastatin 10mg PO HS # hypothyroidism - cont. Synthroid 100mcg PO daily - TSH 0.22, free T4 1.19 # anxiety - cont. Xanax 0.5mg PO daily # Hx of DVT - Lovenox 120mg SQ QD #FEN -NS@50 -lytes WNL -DM diet #PPX -on lovenox Mark Walter MD PGY-1 Visit type - Emergency Visit Emergency Visit: No - New Patient This patient is new to me today: No - Critical Care Critical Care patient: No - Discharge Referral Referred to [facility] No
[2016-11-23] MEDS ORDERED: INSULIN (NOVOLOG) ASPART 100 UNITS/ML 10ML VIAL ONE (21:06)
[2016-11-23] MEDS: ATORVASTATIN CA 10 MG TABLET (FP) PO SCH (21:21)
[2016-11-23] MEDS: MONTELUKAST NA 10 MG TABLET PO SCH (21:25)
[2016-11-23] MEDS ORDERED: LOSARTAN POTASSIUM 50 MG TABLET (FP) PO SCH (22:00)
[2016-11-23] MEDS: ALBUTEROL SO4 0.5 % INH SOLN 2.5 MG/0.5 ML VIAL.NEB. NEB SCH (23:41)
[2016-11-24] MEDS: NYSTATIN 500,000 UNITS/5 ML SUSPENSION PO SCH ×5 (01:11→22:58)
[2016-11-24] MEDS: INSULIN SLIDING SCALE (NOVOLOG) 1 VIAL SQ SCH ×4 (06:30→23:04)
[2016-11-24] MEDS: ALPRAZolam 0.25 MG TABLET PO SCH ×3 (06:31→22:58)
[2016-11-24] MEDS: LEVOTHYROXINE NA 100 MCG TABLET (FP) PO SCH (06:31)
[2016-11-24] MEDS: INSULIN DETEMIR 100 UNITS/ML MDV SQ SCH ×2 (06:31→23:05)
[2016-11-24] MEDS: ALBUTEROL SO4 0.5 % INH SOLN 2.5 MG/0.5 ML VIAL.NEB. NEB SCH ×3 (06:40→18:02)
[2016-11-24] MEDS: ACETYLCYSTEINE 20% 200MG/ML 4 ML VIAL *FOR ORAL / INH USE ONLY NEB SCH ×3 (06:40→18:02)
[2016-11-24 07:00] LABS: MEAN CELL VOLUME 81.3 fl (80-96); MEAN PLT VOLUME 8.5 fl (7.5-11.1); PLATELET COUNT 247 K/MM3 (134-434); RDW 17.8 % (11.6-15.6); WHITE BLOOD COUNT 15.4 K/mm3 (4.0-10.0)
[2016-11-24 07:13] LABS: ANION GAP 8 (8-16); CALCIUM 8.7 mg/dL (8.5-10.1); CO2 30 mmol/L (21-32); CREATININE 0.9 mg/dL (0.55-1.02); GLUCOSE,RANDOM 178 mg/dL (74-106)
[2016-11-24] MEDS ORDERED: INSULIN DETEMIR 100 UNITS/ML MDV SQ ONE ×2 (07:53→23:13)
--- NOTE | 2016-11-24 09:02 | PN ---
Teaching Attending Note Name of Resident: Claire Mederos ATTENDING PHYSICIAN STATEMENT I saw and evaluated the patient. I reviewed the resident's note and discussed the case with the resident. I agree with the resident's findings and plan as documented. SUBJECTIVE: no fever or chills , no abd pain , breathing is better. congestion is better OBJECTIVE: NAD, AAOx3. MMM. no facial droop CV: RRR Lungs : scattered exp wheezes , less than yesterday. prolonged exp phase . No crackles Ext: erythema on shins. nl warmth of LE ,L leg circumference > R . 1+ pitting edema ASSESSMENT AND PLAN: 66 y/o lady with multiple medical problems including HTN, DVT, IDDM, hypothyroidism, asthma, and endometrial cancer with lung mets who presented with SOB and was found to have asthma exacerbation 1- Asthma exacerbation :improved . - Reduce prednisone to 50 mg daily - cont NEbs - cont symbicort and spiriva - Cont Mucomyst - peak flow pending for today 2- Lactic acidosis : likely type B lactic acidosis due to her Solid tumor and Albuterol Nebs . - monitor off IVF as she started developing edema - repeat Lactate in am - hold off Abx , WBC improved - blood cx neg to date 3- Hyperkalemia : very mild . -repeat this afternoon - hold ARB 4- IDDM: - levemir 40 BID - cont SSI 5- H/o DVT, - cont home dose lovenox 120 daily 7- HTN: - hold ARB and substitute norvasc for now 8- Hypothyroidism: - cont decreased dose of synthroid dispo : HLOC
[2016-11-24] MEDS ORDERED: PT OWN MED DRAWER 7, Y5N ONE ×3 (09:39→22:54)
[2016-11-24] MEDS: MEGESTROL ACETATE 40 MG TABLET PO SCH ×2 (09:50→22:59)
[2016-11-24] MEDS: ASPIRIN 81 MG CHEWABLE TABLETS PO SCH (09:50)
[2016-11-24] MEDS: amLODIPine BESYLATE 5 MG TABLET (FP) PO SCH (09:50)
[2016-11-24] MEDS: predniSONE 20 MG TABLET (UD) PO SCH (09:50)
[2016-11-24] MEDS: SERTRALINE HCL 25 MG TABLET (FP) PO SCH (09:51)
[2016-11-24] MEDS: oxyCODONE HCL 5 MG TABLET PO PRN ×2 (09:51→22:59)
[2016-11-24] MEDS: TIOTROPIUM BROMIDE 18 MCG/INH (DEVICE W/ 5 CAPSULES) IH SCH (09:52)
[2016-11-24] MEDS: BUDESONIDE/FORMETEROL FUMARATE 160/4.5 mcg INHALER IH SCH ×2 (09:52→23:00)
[2016-11-24] MEDS: ENOXAPARIN NA (PORCINE) 120 MG/0.8 ML DISP.SYRIN SQ SCH (09:58)
[2016-11-24] MEDS ORDERED: LOSARTAN POTASSIUM 50 MG TABLET (FP) PO SCH (10:00)
--- NOTE | 2016-11-24 13:57 | PN ---
Progress Note (short form) - Note Progress Note: Breathing feels a little better today. PEF : 220 up from 200 yesterday. Still with some wheezing and left pleuritic type discomfort. Intake & Output 11/21/16 11/22/16 11/23/16 11/24/16 23:59 23:59 23:59 23:59 Intake Total 2125 350 1250 200 Balance 2125 350 1250 200 Weight 190 lb Last Vital Signs Temp Pulse Resp BP Pulse Ox 99 F 104 H 22 128/71 99 11/24/16 09:45 11/24/16 09:45 11/24/16 09:45 11/24/16 09:45 11/23/16 21:00 Active Medications Acetaminophen (Tylenol -) 650 mg PO Q6H PRN PRN Reason: FEVER OR PAIN Last Admin: 11/23/16 06:36 Dose: 650 mg Acetylcysteine (Mucomyst 20 Oral / Inh Use Only*) 200 mg NEB QIDR [facility] Last Admin: 11/24/16 11:42 Dose: 200 mg Albuterol Sulfate (Ventolin 0.083% Nebulizer Soln -) 1 amp NEB Q4H PRN PRN Reason: SHORT OF BREATH/WHEEZING Last Admin: 11/23/16 17:25 Dose: 1 amp Albuterol Sulfate (Ventolin 0.5% -) 1 amp NEB QIDR [facility] Last Admin: 11/24/16 11:42 Dose: 1 amp Alprazolam (Xanax -) 0.5 mg PO TID [facility] Last Admin: 11/24/16 06:31 Dose: 0.5 mg Amlodipine Besylate (Norvasc -) 5 mg PO DAILY [facility] Last Admin: 11/24/16 09:50 Dose: 5 mg Aspirin (Asa -) 81 mg PO DAILY [facility] Last Admin: 11/24/16 09:50 Dose: 81 mg Atorvastatin Calcium (Lipitor -) 10 mg PO HS [facility] Last Admin: 11/23/16 21:21 Dose: 10 mg Budesonide/Formoterol Fumarate (Symbicort 160/4.5mcg -) 2 puff IH BID [facility] Last Admin: 11/24/16 09:52 Dose: 2 puff Cholecalciferol (Vitamin D3 -) 1,000 unit PO Q7D [facility] Last Admin: 11/21/16 04:03 Dose: Not Given Enoxaparin Sodium (Lovenox -) 120 mg SQ DAILY [facility] Last Admin: 11/24/16 09:58 Dose: 120 mg Insulin Aspart (Novolog Vial Sliding Scale -) 1 vial SQ ACHS [facility] PRN Reason: Protocol Last Admin: 11/24/16 11:52 Dose: 6 units Insulin Detemir (Levemir Vial) 40 units SQ BID@0700,2200 [facility] Last Admin: 11/24/16 06:31 Dose: 40 units Levothyroxine Sodium (Synthroid -) 100 mcg PO DAILY@0700 [facility] Last Admin: 11/24/16 06:31 Dose: 100 mcg Megestrol Acetate (Megace -) 80 mg PO BID [facility] Last Admin: 11/24/16 09:50 Dose: 80 mg Montelukast Sodium (Singulair -) 10 mg PO HS [facility] Last Admin: 11/23/16 21:25 Dose: 10 mg Nystatin (Nystatin Oral Suspension -) 500,000 units PO Q6HPO [facility] Last Admin: 11/24/16 12:28 Dose: 500,000 units Ondansetron HCl (Zofran -) 8 mg PO Q8H PRN PRN Reason: NAUSEA Last Admin: 11/22/16 13:11 Dose: 8 mg Oxycodone HCl (Roxicodone -) 10 mg PO Q12H PRN Last Admin: 11/24/16 09:51 Dose: 10 mg Prednisone (Deltasone -) 50 mg PO DAILY [facility] Last Admin: 11/24/16 09:50 Dose: 50 mg Sertraline HCl (Zoloft -) 25 mg PO DAILY [facility] Last Admin: 11/24/16 09:51 Dose: 25 mg Tiotropium [place] (Spiriva -) 1 puff IH DAILY [facility] Last Admin: 11/24/16 09:52 Dose: 1 puff Constitutional: Yes: Cushingoid, Mildly tachypneic at rest Eyes: Yes: WNL HENT: Yes: WNL Neck: Yes: WNL Cardiovascular: Yes: Regular Rate and Rhythm, S1, S2 Respiratory: Yes: Bilateral expiratory wheeze Left > Right Gastrointestinal: Yes: Normal Bowel Sounds, Soft Extremities: Yes: WNL Edema: Yes Labs: Laboratory Results - last 24 hr 11/23/16 11/23/16 11/23/16 05:35 17:17 21:19 WBC 16.3 H RBC 4.26 Hgb 11.0 Hct 34.5 MCV 80.9 MCH 25.9 MCHC 32.0 RDW 17.8 H Plt Count 256 MPV 8.8 Neutrophils % 62.0 Lymphocytes % 26.0 D Monocytes % 10.0 Eosinophils % 1.0 D Metamyelocytes 1 Differential Comment Manual diff done Platelet Estimate Adequate Sodium Potassium Chloride Carbon Dioxide Anion Gap BUN Creatinine POC Glucometer 260 367 Random Glucose Lactic Acid Calcium 11/24/16 11/24/16 11/24/16 05:26 06:00 06:00 WBC 15.4 H RBC 4.39 Hgb 11.4 Hct 35.7 MCV 81.3 MCH 26.0 MCHC 32.0 RDW 17.8 H Plt Count 247 MPV 8.5 Neutrophils % Lymphocytes % Monocytes % Eosinophils % Metamyelocytes Differential Comment Platelet Estimate Sodium Potassium Chloride Carbon Dioxide Anion Gap BUN Creatinine POC Glucometer 177 Random Glucose Lactic Acid 3.1 H* Calcium 11/24/16 11/24/16 06:00 11:51 WBC RBC Hgb Hct MCV MCH MCHC RDW Plt Count MPV Neutrophils % Lymphocytes % Monocytes % Eosinophils % Metamyelocytes Differential Comment Platelet Estimate Sodium 138 Potassium 5.2 H Chloride 100 Carbon Dioxide 30 Anion Gap 8 BUN 22 H Creatinine 0.9 POC Glucometer 259 Random Glucose 178 H D Lactic Acid Calcium 8.7 Problem List - Problems (1) Acute asthma exacerbation Code(s): J45.901 - UNSPECIFIED ASTHMA WITH (ACUTE) EXACERBATION (2) Cervical cancer Code(s): C53.9 - MALIGNANT NEOPLASM OF CERVIX UTERI, UNSPECIFIED (3) Chronic steroid use Code(s): ZGY9417 - (4) Endometrial cancer Code(s): C54.1 - MALIGNANT NEOPLASM OF ENDOMETRIUM (5) History of DVT of lower extremity Code(s): Z86.718 - PERSONAL HISTORY OF OTHER VENOUS THROMBOSIS AND EMBOLISM (6) Hyperlipidemia Code(s): E78.5 - HYPERLIPIDEMIA, UNSPECIFIED Qualifiers: Hyperlipidemia type: unspecified Qualified Code(s): E78.5 - Hyperlipidemia, unspecified (7) Hypertension Code(s): I10 - ESSENTIAL (PRIMARY) HYPERTENSION Qualifiers: Hypertension type: essential hypertension Qualified Code(s): I10 - Essential (primary) hypertension (8) Hypothyroidism Code(s): E03.9 - HYPOTHYROIDISM, UNSPECIFIED Qualifiers: Hypothyroidism type: unspecified Qualified Code(s): E03.9 - Hypothyroidism, unspecified (9) Metastatic disease Code(s): C79.9 - SECONDARY MALIGNANT NEOPLASM OF UNSPECIFIED SITE (10) Obesity Code(s): E66.9 - OBESITY, UNSPECIFIED Assessment/Plan IMP ACUTE ASTHMA EXACERBATION ENDOMETRIAL CA WITH EXTENSIVE LUNG METS HTN HLD HYPOTHYROIDISM PVD H/O DVT PLAN PREDNISONE INHALED BRONCHODILATORS MUCOMYST O2 MONITOR PEAK FLOW CHEST PT DR DAO
[2016-11-24 14:14] LABS: ANION GAP 9 (8-16); CALCIUM 8.4 mg/dL (8.5-10.1); CO2 28 mmol/L (21-32); GLUCOSE,RANDOM 264 mg/dL (74-106)
--- NOTE | 2016-11-24 19:40 | PN ---
Physical Exam: SUBJECTIVE: Patient seen and examined by me at bedside. Patient reports her breathing and congestion is much better today, especially after the mucomyst was given. She denies any chest pain, dizziness, headaches, acute vision changes. OBJECTIVE: Vital Signs Period Temp Pulse Resp BP Sys/Encarnacion Pulse Ox Last 24 Hr 97.4 F-99 F 88-104 20-22 128-131/57-75 97-99 Ext: erythema on shins. nl warmth of LE ,L leg circumference > R . 1+ pitting saumya GENERAL: The patient is awake, alert, and fully oriented, in no acute distress. EYES: sclera anicteric, conjunctiva clear. ENT: Moist mucous membranes with some mild oral thrush LUNGS: Bilateral expiratory wheezing throughout lung bases (improving) with prolonged expiratory phase. No crackles appreciated HEART: Regular rate and rhythm, normal S1 and S2 without murmur, rub or gallop. ABDOMEN: Soft, obese, nontender, normoactive bowel sounds. EXTREMITIES:Bilateral erythema of the shins L>R with 1+ pitting edema. NEUROLOGICAL: No facial droop Laboratory Results - last 24 hr 11/23/16 11/24/16 11/24/16 21:19 05:26 06:00 WBC RBC Hgb Hct MCV MCH MCHC RDW Plt Count MPV Sodium Potassium Chloride Carbon Dioxide Anion Gap BUN Creatinine POC Glucometer 367 177 Random Glucose Lactic Acid 3.1 H* Calcium 11/24/16 11/24/16 11/24/16 06:00 06:00 11:51 WBC 15.4 H RBC 4.39 Hgb 11.4 Hct 35.7 MCV 81.3 MCH 26.0 MCHC 32.0 RDW 17.8 H Plt Count 247 MPV 8.5 Sodium 138 Potassium 5.2 H Chloride 100 Carbon Dioxide 30 Anion Gap 8 BUN 22 H Creatinine 0.9 POC Glucometer 259 Random Glucose 178 H D Lactic Acid Calcium 8.7 11/24/16 11/24/16 13:46 17:16 WBC RBC Hgb Hct MCV MCH MCHC RDW Plt Count MPV Sodium 134 L Potassium 4.6 Chloride 97 L Carbon Dioxide 28 Anion Gap 9 BUN 26 H Creatinine 1.0 POC Glucometer 320 Random Glucose 264 H D Lactic Acid Calcium 8.4 L Active Medications Generic Name Dose Route Start Last Admin Trade Name Freq PRN Reason Stop Dose Admin Acetaminophen 650 mg 11/22/16 13:58 11/23/16 06:36 Tylenol - PO 650 mg Q6H PRN Administration FEVER OR PAIN Acetylcysteine 200 mg 11/23/16 18:45 11/24/16 18:02 Mucomyst 20 Oral / Inh Use Only* NEB 200 mg QIDR RAFA Administration Albuterol Sulfate 1 amp 11/21/16 12:19 11/23/16 17:25 Ventolin 0.083% Nebulizer Soln - NEB 1 amp Q4H PRN Administration SHORT OF BREATH/WHEEZING Albuterol Sulfate 1 amp 11/23/16 18:43 11/24/16 18:02 Ventolin 0.5% - NEB 1 amp QIDR RAFA Administration Alprazolam 0.5 mg 11/23/16 22:00 11/24/16 14:29 Xanax - PO 0.5 mg TID RAFA Administration Amlodipine Besylate 5 mg 11/24/16 10:00 11/24/16 09:50 Norvasc - PO 5 mg DAILY RAFA Administration Aspirin 81 mg 11/21/16 10:00 11/24/16 09:50 Asa - PO 81 mg DAILY RAFA Administration Atorvastatin Calcium 10 mg 11/21/16 22:00 11/23/16 21:21 Lipitor - PO 10 mg HS RAFA Administration Budesonide/Formoterol Fumarate 2 puff 11/21/16 13:30 11/24/16 09:52 Symbicort 160/4.5mcg - IH 2 puff BID RAFA Administration Cholecalciferol 1,000 unit 11/21/16 02:15 11/21/16 04:03 Vitamin D3 - PO Not Given Q7D [facility] Enoxaparin Sodium 120 mg 11/22/16 10:00 11/24/16 09:58 Lovenox - SQ 120 mg DAILY RAFA Administration Insulin Aspart 1 vial 11/21/16 16:30 11/24/16 17:18 Novolog Vial Sliding Scale - SQ 8 units ACHS [facility] Administration Protocol Insulin Detemir 40 units 11/21/16 22:00 11/24/16 06:31 Levemir Vial SQ 40 units BID@0700,2200 RAFA Administration Levothyroxine Sodium 100 mcg 11/24/16 07:00 11/24/16 06:31 Synthroid - PO 100 mcg DAILY@0700 RAFA Administration Megestrol Acetate 80 mg 11/21/16 10:00 11/24/16 09:50 Megace - PO 80 mg BID RAFA Administration Montelukast Sodium 10 mg 11/21/16 22:00 11/23/16 21:25 Singulair - PO 10 mg HS RAFA Administration Nystatin 500,000 units 11/21/16 06:00 11/24/16 19:09 Nystatin Oral Suspension - PO 500,000 units Q6HPO RAFA Administration Ondansetron HCl 8 mg 11/21/16 02:07 11/22/16 13:11 Zofran - PO 8 mg Q8H PRN Administration NAUSEA Oxycodone HCl 10 mg 11/21/16 22:00 11/24/16 09:51 Roxicodone - PO 10 mg Q12H PRN Administration Prednisone 50 mg 11/24/16 10:00 11/24/16 09:50 Deltasone - PO 50 mg DAILY RAFA Administration Sertraline HCl 25 mg 11/21/16 10:00 11/24/16 09:51 Zoloft - PO 25 mg DAILY RAFA Administration Tiotropium [place] 1 puff 11/21/16 13:00 11/24/16 09:52 Spiriva - IH 1 puff DAILY RAFA Administration ASSESSMENT/PLAN: Patient is a 66 year old female with a PMHx of Endometrial Cancer with lung mets , asthma, DVT, HTN, HLD, IDDM, hypothyroidism, diastolic CHF with preserved EF who was admitted for asthma exacerbation. Acute on Chronic Asthma Exacerbation- Improving -Peak Flow 220 today from 200 yesterday -Tapering Prednisone to 50mg PO today -Continue Albuterol Nebulizer standing and PRN with mucomyst, Spiriva, and Symbicort -Continue Singulair 10mg daily -Continue 02 Nasal Cannula -Will need outpatient PFT's once discharged Lactic Acidosis -Likely type B from her solid tumor or Albuterol -Will continue to monitor off Antibiotics and IV fluids -Blood cultures negative -Repeat lactic in the morning Hyperkalemia- Mild -Possibly secondary to medications or decreasing kidney function -This morning 5.2 -Repeat Potassium in the afternoon was wnl at 4.6 -Will hold Losartan as it may cause an increase in Potassium -Continue to monitor potassium and if it continues to increase, will consider giving Kayexalate Oral Thrush- Improving -Nystatin swish and swallow, Oral Suspension 500,000U PO q6h IDDM -ISS -BGM -Levemir 40mg BID HTN -Continue to hold Losartan due to side effect of Hyperkalemia -Continue Norvasc 10mg PO daily -Continue to monitor BP HLD -Continue Atorvastatin 10mg HS History of DVT -Continue Lovenox 120mg daily Hypothyroidism -Continue Synthroid 100mcg daily Anxiety -Continue Xanax 0.5mg PO TID Endometrial Cancer -Tamoxifen on hold but will resume on discharge F/E/N -On no fluids -Hyperkalemia. Repleted -Diabetic diet Prophylaxis -Lovenox 120mg sq daily -No GI needed Disposition -Full code -Will continue to taper steroids Visit type - Emergency Visit Emergency Visit: Yes ED Registration Date: 11/21/16 Care time: The patient presented to the Emergency Department on the above date and was hospitalized for further evaluation of their emergent condition. - New Patient This patient is new to me today: Yes Date on this admission: 11/24/16 - Critical Care Critical Care patient: No
[2016-11-24] MEDS: ATORVASTATIN CA 10 MG TABLET (FP) PO SCH (22:59)
[2016-11-24] MEDS: MONTELUKAST NA 10 MG TABLET PO SCH (22:59)
[2016-11-25] MEDS: ALBUTEROL SO4 0.5 % INH SOLN 2.5 MG/0.5 ML VIAL.NEB. NEB SCH ×5 (00:10→23:10)
[2016-11-25] MEDS: ACETYLCYSTEINE 20% 200MG/ML 4 ML VIAL *FOR ORAL / INH USE ONLY NEB SCH ×5 (00:10→23:10)
[2016-11-25] MEDS: NYSTATIN 500,000 UNITS/5 ML SUSPENSION PO SCH ×4 (02:17→18:27)
[2016-11-25] MEDS ORDERED: INSULIN (NOVOLOG) ASPART 100 UNITS/ML 10ML VIAL ONE ×2 (06:32→16:29)
[2016-11-25] MEDS: LEVOTHYROXINE NA 100 MCG TABLET (FP) PO SCH (06:38)
[2016-11-25] MEDS: ALPRAZolam 0.25 MG TABLET PO SCH ×3 (06:38→21:55)
[2016-11-25] MEDS: INSULIN DETEMIR 100 UNITS/ML MDV SQ SCH ×2 (06:39→22:28)
[2016-11-25] MEDS: INSULIN SLIDING SCALE (NOVOLOG) 1 VIAL SQ SCH ×4 (06:39→22:30)
[2016-11-25] MEDS: ACETAMINOPHEN 325 MG TABLET (FP) PO PRN ×2 (06:44→22:04)
[2016-11-25 07:44] LABS: MCH 25.6 pg (25.7-33.7); MCHC 31.6 g/dl (32.0-36.0); MEAN CELL VOLUME 80.9 fl (80-96); MEAN PLT VOLUME 8.4 fl (7.5-11.1); PLATELET COUNT 255 K/MM3 (134-434); RDW 17.6 % (11.6-15.6); WHITE BLOOD COUNT 15.8 K/mm3 (4.0-10.0)
[2016-11-25 08:21] LABS: ANION GAP 7 (8-16); CALCIUM 9.1 mg/dL (8.5-10.1); CO2 30 mmol/L (21-32); CREATININE 0.9 mg/dL (0.55-1.02); GLUCOSE,RANDOM 61 mg/dL (74-106)
[2016-11-25] MEDS ORDERED: PT OWN MED DRAWER 7, Y5N ONE ×6 (09:56→21:33)
[2016-11-25] MEDS: amLODIPine BESYLATE 5 MG TABLET (FP) PO SCH (09:59)
[2016-11-25] MEDS: ASPIRIN 81 MG CHEWABLE TABLETS PO SCH (09:59)
[2016-11-25] MEDS: predniSONE 20 MG TABLET (UD) PO SCH (10:00)
[2016-11-25] MEDS: ENOXAPARIN NA (PORCINE) 120 MG/0.8 ML DISP.SYRIN SQ SCH (10:01)
[2016-11-25] MEDS: BUDESONIDE/FORMETEROL FUMARATE 160/4.5 mcg INHALER IH SCH ×2 (10:03→21:55)
[2016-11-25] MEDS: MEGESTROL ACETATE 40 MG TABLET PO SCH ×2 (10:03→21:54)
[2016-11-25] MEDS: SERTRALINE HCL 25 MG TABLET (FP) PO SCH (10:04)
[2016-11-25] MEDS: TIOTROPIUM BROMIDE 18 MCG/INH (DEVICE W/ 5 CAPSULES) IH SCH (14:25)
[2016-11-25] MEDS: oxyCODONE HCL 5 MG TABLET PO PRN (14:28)
--- NOTE | 2016-11-25 15:01 | PN ---
Progress Note (short form) - Note Progress Note: Subjective: no fever or chills, has more SOB today . no cough . no abd pain . swelling in LE is worse and more tender Objective: Vital Signs: Last Vital Signs Temp Pulse Resp BP Pulse Ox 98.3 F 107 H 20 150/73 100 11/25/16 14:00 11/25/16 14:00 11/25/16 14:00 11/25/16 14:00 11/25/16 09:00 Laboratory Results - last 24 hr 11/24/16 11/24/16 11/25/16 17:16 23:03 06:00 WBC 15.8 H RBC 4.56 Hgb 11.7 Hct 36.8 MCV 80.9 MCH 25.6 L MCHC 31.6 L RDW 17.6 H Plt Count 255 MPV 8.4 Sodium Potassium Chloride Carbon Dioxide Anion Gap BUN Creatinine POC Glucometer 320 241 Random Glucose Lactic Acid Calcium 11/25/16 11/25/16 11/25/16 06:00 06:00 06:37 WBC RBC Hgb Hct MCV MCH MCHC RDW Plt Count MPV Sodium 138 Potassium 4.5 Chloride 101 Carbon Dioxide 30 Anion Gap 7 L BUN 19 H D Creatinine 0.9 POC Glucometer 93 Random Glucose 61 L D Lactic Acid 2.0 Calcium 9.1 11/25/16 11:28 WBC RBC Hgb Hct MCV MCH MCHC RDW Plt Count MPV Sodium Potassium Chloride Carbon Dioxide Anion Gap BUN Creatinine POC Glucometer 135 Random Glucose Lactic Acid Calcium Physical Exam: NAD, AAOx3. MMM. no facial droop CV: RRR Lungs : scattered exp wheezes ,prolonged exp phase . No crackles Ext: erythema on shins. nl warmth of LE ,L leg circumference > R . 1+ pitting edema worse today ASSESSMENT AND PLAN: 66 y/o lady with multiple medical problems including HTN, DVT, IDDM, hypothyroidism, asthma, and endometrial cancer with lung mets who presented with SOB and was found to have asthma exacerbation 1- Asthma exacerbation :improved . worsening SOB is probably due to fluid overload - cont prednisone 50 mg daily - cont NEbs - cont symbicort and spiriva - Cont Mucomyst - peak flow pending for today - give lasix back 2- Lactic acidosis : likely type B lactic acidosis due to her Solid tumor and Albuterol Nebs . resolved . no evidence of infection lactate normalized 3- Hyperkalemia :resolved 4- IDDM: hypoglycemic this am . - decrease levemir to 30 BID - cont SSI 5- H/o DVT, - cont home dose lovenox 120 daily 7- HTN: - try to resume losartan tomorrow and monitor K 8- Hypothyroidism: - cont decreased dose of synthroid Dispo : HLOC Visit type - Emergency Visit Emergency Visit: Yes ED Registration Date: 11/21/16 Care time: The patient presented to the Emergency Department on the above date and was hospitalized for further evaluation of their emergent condition. - New Patient This patient is new to me today: No - Critical Care Critical Care patient: No
--- NOTE | 2016-11-25 15:41 | PN ---
Progress Note (short form) - Note Progress Note: Breathing more labored today. Notes increased edema. PEF : 200 Some pleuritic type pain with coughing. Intake & Output 11/22/16 11/23/16 11/24/16 11/25/16 23:59 23:59 23:59 23:59 Intake Total 350 1250 910 240 Balance 350 1250 910 240 Last Vital Signs Temp Pulse Resp BP Pulse Ox 98.3 F 107 H 20 150/73 100 11/25/16 14:00 11/25/16 14:00 11/25/16 14:00 11/25/16 14:00 11/25/16 09:00 Active Medications Acetaminophen (Tylenol -) 650 mg PO Q6H PRN PRN Reason: FEVER OR PAIN Last Admin: 11/25/16 06:44 Dose: 650 mg Acetylcysteine (Mucomyst 20 Oral / Inh Use Only*) 200 mg NEB QIDR [facility] Last Admin: 11/25/16 11:05 Dose: 200 mg Albuterol Sulfate (Ventolin 0.083% Nebulizer Soln -) 1 amp NEB Q4H PRN PRN Reason: SHORT OF BREATH/WHEEZING Last Admin: 11/23/16 17:25 Dose: 1 amp Albuterol Sulfate (Ventolin 0.5% -) 1 amp NEB QIDR [facility] Last Admin: 11/25/16 11:05 Dose: 1 amp Alprazolam (Xanax -) 0.5 mg PO TID [facility] Last Admin: 11/25/16 14:25 Dose: 0.5 mg Aspirin (Asa -) 81 mg PO DAILY [facility] Last Admin: 11/25/16 09:59 Dose: 81 mg Atorvastatin Calcium (Lipitor -) 10 mg PO HS [facility] Last Admin: 11/24/16 22:59 Dose: 10 mg Budesonide/Formoterol Fumarate (Symbicort 160/4.5mcg -) 2 puff IH BID [facility] Last Admin: 11/25/16 10:03 Dose: 2 puff Cholecalciferol (Vitamin D3 -) 1,000 unit PO Q7D [facility] Last Admin: 11/21/16 04:03 Dose: Not Given Enoxaparin Sodium (Lovenox -) 120 mg SQ DAILY [facility] Last Admin: 11/25/16 10:01 Dose: 120 mg Furosemide (Lasix -) 40 mg PO DAILY [facility] Insulin Aspart (Novolog Vial Sliding Scale -) 1 vial SQ ACHS [facility] PRN Reason: Protocol Last Admin: 11/25/16 11:52 Dose: Not Given Insulin Detemir (Levemir Vial) 30 units SQ BID@0700,2200 [facility] Levothyroxine Sodium (Synthroid -) 100 mcg PO DAILY@0700 [facility] Last Admin: 11/25/16 06:38 Dose: 100 mcg Losartan Potassium (Cozaar -) 50 mg PO BID [facility] Megestrol Acetate (Megace -) 80 mg PO BID [facility] Last Admin: 11/25/16 10:03 Dose: 80 mg Montelukast Sodium (Singulair -) 10 mg PO HS [facility] Last Admin: 11/24/16 22:59 Dose: 10 mg Nystatin (Nystatin Oral Suspension -) 500,000 units PO Q6HPO [facility] Last Admin: 11/25/16 14:25 Dose: 500,000 units Ondansetron HCl (Zofran -) 8 mg PO Q8H PRN PRN Reason: NAUSEA Last Admin: 11/22/16 13:11 Dose: 8 mg Oxycodone HCl (Roxicodone -) 10 mg PO Q12H PRN Last Admin: 11/25/16 14:28 Dose: 10 mg Prednisone (Deltasone -) 50 mg PO DAILY [facility] Last Admin: 11/25/16 10:00 Dose: 50 mg Sertraline HCl (Zoloft -) 25 mg PO DAILY [facility] Last Admin: 11/25/16 10:04 Dose: 25 mg Tiotropium [place] (Spiriva -) 1 puff IH DAILY [facility] Last Admin: 11/25/16 14:25 Dose: 1 puff Constitutional: Yes: Cushingoid, Mildly tachypneic at rest Eyes: Yes: WNL HENT: Yes: WNL Neck: Yes: WNL Cardiovascular: Yes: Regular Rate and Rhythm, S1, S2 Respiratory: Yes: Bilateral expiratory wheeze Left > Right Gastrointestinal: Yes: Normal Bowel Sounds, Soft Extremities: Yes: WNL Edema: Increased Labs: Laboratory Results - last 24 hr 11/24/16 11/24/16 11/25/16 17:16 23:03 06:00 WBC 15.8 H RBC 4.56 Hgb 11.7 Hct 36.8 MCV 80.9 MCH 25.6 L MCHC 31.6 L RDW 17.6 H Plt Count 255 MPV 8.4 Sodium Potassium Chloride Carbon Dioxide Anion Gap BUN Creatinine POC Glucometer 320 241 Random Glucose Lactic Acid Calcium 11/25/16 11/25/16 11/25/16 06:00 06:00 06:37 WBC RBC Hgb Hct MCV MCH MCHC RDW Plt Count MPV Sodium 138 Potassium 4.5 Chloride 101 Carbon Dioxide 30 Anion Gap 7 L BUN 19 H D Creatinine 0.9 POC Glucometer 93 Random Glucose 61 L D Lactic Acid 2.0 Calcium 9.1 11/25/16 11:28 WBC RBC Hgb Hct MCV MCH MCHC RDW Plt Count MPV Sodium Potassium Chloride Carbon Dioxide Anion Gap BUN Creatinine POC Glucometer 135 Random Glucose Lactic Acid Calcium Problem List - Problems (1) Acute asthma exacerbation Code(s): J45.901 - UNSPECIFIED ASTHMA WITH (ACUTE) EXACERBATION (2) Cervical cancer Code(s): C53.9 - MALIGNANT NEOPLASM OF CERVIX UTERI, UNSPECIFIED (3) Chronic steroid use Code(s): EXY9059 - (4) Endometrial cancer Code(s): C54.1 - MALIGNANT NEOPLASM OF ENDOMETRIUM (5) History of DVT of lower extremity Code(s): Z86.718 - PERSONAL HISTORY OF OTHER VENOUS THROMBOSIS AND EMBOLISM (6) Hyperlipidemia Code(s): E78.5 - HYPERLIPIDEMIA, UNSPECIFIED Qualifiers: Hyperlipidemia type: unspecified Qualified Code(s): E78.5 - Hyperlipidemia, unspecified (7) Hypertension Code(s): I10 - ESSENTIAL (PRIMARY) HYPERTENSION Qualifiers: Hypertension type: essential hypertension Qualified Code(s): I10 - Essential (primary) hypertension (8) Hypothyroidism Code(s): E03.9 - HYPOTHYROIDISM, UNSPECIFIED Qualifiers: Hypothyroidism type: unspecified Qualified Code(s): E03.9 - Hypothyroidism, unspecified (9) Metastatic disease Code(s): C79.9 - SECONDARY MALIGNANT NEOPLASM OF UNSPECIFIED SITE (10) Obesity Code(s): E66.9 - OBESITY, UNSPECIFIED Assessment/Plan IMP ACUTE ASTHMA EXACERBATION ENDOMETRIAL CA WITH EXTENSIVE LUNG METS HTN HLD HYPOTHYROIDISM PVD H/O DVT PLAN LASIX PREDNISONE INHALED BRONCHODILATORS MUCOMYST O2 MONITOR PEAK FLOW CHEST PT DR DAO
[2016-11-25] MEDS: FUROSEMIDE 40 MG TABLET (FP) PO SCH (16:20)
[2016-11-25] MEDS: ATORVASTATIN CA 10 MG TABLET (FP) PO SCH (21:54)
[2016-11-25] MEDS: MONTELUKAST NA 10 MG TABLET PO SCH (21:55)
[2016-11-26] MEDS: NYSTATIN 500,000 UNITS/5 ML SUSPENSION PO SCH ×5 (00:55→23:09)
[2016-11-26] MEDS: oxyCODONE HCL 5 MG TABLET PO PRN ×2 (03:37→16:46)
[2016-11-26] MEDS: ALBUTEROL SO4 0.5 % INH SOLN 2.5 MG/0.5 ML VIAL.NEB. NEB SCH ×4 (06:30→23:05)
[2016-11-26] MEDS: ACETYLCYSTEINE 20% 200MG/ML 4 ML VIAL *FOR ORAL / INH USE ONLY NEB SCH ×4 (06:35→23:05)
[2016-11-26] MEDS: LEVOTHYROXINE NA 100 MCG TABLET (FP) PO SCH (06:36)
[2016-11-26] MEDS: ALPRAZolam 0.25 MG TABLET PO SCH ×3 (06:37→22:16)
[2016-11-26] MEDS: INSULIN DETEMIR 100 UNITS/ML MDV SQ SCH ×2 (06:38→22:17)
[2016-11-26] MEDS: INSULIN SLIDING SCALE (NOVOLOG) 1 VIAL SQ SCH ×4 (06:43→22:18)
[2016-11-26] MEDS ORDERED: PT OWN MED DRAWER 7, Y5N ONE ×3 (09:23→09:41)
[2016-11-26] MEDS: predniSONE 20 MG TABLET (UD) PO SCH (09:26)
[2016-11-26] MEDS: LOSARTAN POTASSIUM 50 MG TABLET (FP) PO SCH ×2 (09:27→22:16)
[2016-11-26] MEDS: FUROSEMIDE 40 MG TABLET (FP) PO SCH (09:27)
[2016-11-26] MEDS: ASPIRIN 81 MG CHEWABLE TABLETS PO SCH (09:27)
[2016-11-26] MEDS: TIOTROPIUM BROMIDE 18 MCG/INH (DEVICE W/ 5 CAPSULES) IH SCH (09:27)
[2016-11-26] MEDS: MEGESTROL ACETATE 40 MG TABLET PO SCH ×2 (09:28→22:15)
[2016-11-26] MEDS: ENOXAPARIN NA (PORCINE) 120 MG/0.8 ML DISP.SYRIN SQ SCH (09:28)
[2016-11-26] MEDS: SERTRALINE HCL 25 MG TABLET (FP) PO SCH (09:29)
[2016-11-26] MEDS: BUDESONIDE/FORMETEROL FUMARATE 160/4.5 mcg INHALER IH SCH ×2 (09:29→22:16)
--- NOTE | 2016-11-26 10:30 | PN ---
Progress Note (short form) - Note Progress Note: PULMONARY States breathing slowly improving. +cough with clear sputum and wheezing less. Peak flow this AM 200. Last Vital Signs Temp Pulse Resp BP Pulse Ox 98.8 F 104 H 20 111/57 100 11/26/16 09:09 11/26/16 09:09 11/26/16 09:09 11/26/16 09:09 11/25/16 21:00 Gen: NAD at rest Heart: tachycardic, regular Lung: scattered rhonchi, wheezes Abd: soft, nontender Ext: + edema CBC, BMP 11/25/16 06:00 11/26/16 06:00 Active Medications Acetaminophen (Tylenol -) 650 mg PO Q6H PRN PRN Reason: FEVER OR PAIN Last Admin: 11/25/16 22:04 Dose: 650 mg Acetylcysteine (Mucomyst 20 Oral / Inh Use Only*) 200 mg NEB QIDR [facility] Last Admin: 11/26/16 06:35 Dose: 200 mg Albuterol Sulfate (Ventolin 0.083% Nebulizer Soln -) 1 amp NEB Q4H PRN PRN Reason: SHORT OF BREATH/WHEEZING Last Admin: 11/23/16 17:25 Dose: 1 amp Albuterol Sulfate (Ventolin 0.5% -) 1 amp NEB QIDR [facility] Last Admin: 11/26/16 06:30 Dose: 1 amp Alprazolam (Xanax -) 0.5 mg PO TID [facility] Last Admin: 11/26/16 06:37 Dose: 0.5 mg Aspirin (Asa -) 81 mg PO DAILY [facility] Last Admin: 11/26/16 09:27 Dose: 81 mg Atorvastatin Calcium (Lipitor -) 10 mg PO HS [facility] Last Admin: 11/25/16 21:54 Dose: 10 mg Budesonide/Formoterol Fumarate (Symbicort 160/4.5mcg -) 2 puff IH BID [facility] Last Admin: 11/26/16 09:29 Dose: 2 puff Cholecalciferol (Vitamin D3 -) 1,000 unit PO Q7D [facility] Last Admin: 11/21/16 04:03 Dose: Not Given Enoxaparin Sodium (Lovenox -) 120 mg SQ DAILY [facility] Last Admin: 11/26/16 09:28 Dose: 120 mg Furosemide (Lasix -) 40 mg PO DAILY [facility] Last Admin: 11/26/16 09:27 Dose: 40 mg Insulin Aspart (Novolog Vial Sliding Scale -) 1 vial SQ ACHS [facility] PRN Reason: Protocol Last Admin: 11/26/16 06:43 Dose: 2 units Insulin Detemir (Levemir Vial) 30 units SQ BID@0700,2200 [facility] Last Admin: 11/26/16 06:38 Dose: 30 units Levothyroxine Sodium (Synthroid -) 100 mcg PO DAILY@0700 [facility] Last Admin: 11/26/16 06:36 Dose: 100 mcg Losartan Potassium (Cozaar -) 50 mg PO BID [facility] Last Admin: 11/26/16 09:27 Dose: 50 mg Megestrol Acetate (Megace -) 80 mg PO BID [facility] Last Admin: 11/26/16 09:28 Dose: 80 mg Montelukast Sodium (Singulair -) 10 mg PO HS [facility] Last Admin: 11/25/16 21:55 Dose: 10 mg Nystatin (Nystatin Oral Suspension -) 500,000 units PO Q6HPO [facility] Last Admin: 11/26/16 06:38 Dose: 500,000 units Ondansetron HCl (Zofran -) 8 mg PO Q8H PRN PRN Reason: NAUSEA Last Admin: 11/22/16 13:11 Dose: 8 mg Oxycodone HCl (Roxicodone -) 10 mg PO Q12H PRN Last Admin: 11/26/16 03:37 Dose: 10 mg Prednisone (Deltasone -) 50 mg PO DAILY [facility] Last Admin: 11/26/16 09:26 Dose: 50 mg Sertraline HCl (Zoloft -) 25 mg PO DAILY [facility] Last Admin: 11/26/16 09:29 Dose: 25 mg Tiotropium [place] (Spiriva -) 1 puff IH DAILY [facility] Last Admin: 11/26/16 09:27 Dose: 1 puff A/P Acute Asthma Exacerbation Metastatic Cervical Ca with lung mets HTN Hypothyroidism PAD h/o DVT - slow prednisone taper - inhaled bronchodilators standing and PRN - monitor peak flow - singulair - continue anticoagulation
[2016-11-26] MEDS ORDERED: INSULIN (NOVOLOG) ASPART 100 UNITS/ML 10ML VIAL ONE ×4 (11:47→22:12)
--- NOTE | 2016-11-26 15:27 | PN ---
Teaching Attending Note Name of Resident: Mark Walter ATTENDING PHYSICIAN STATEMENT I saw and evaluated the patient. I reviewed the resident's note and discussed the case with the resident. I agree with the resident's findings and plan as documented. SUBJECTIVE: feels better in terms of strength and breathing OBJECTIVE: NAD, AAOx3. MMM. no facial droop CV: RRR Lungs: scattered exp wheezes less than before ,prolonged exp phase . No crackles . improved air movement Ext: erythema on shins. nl warmth of LE ,L leg circumference > R . decreased pitting edema on LE ASSESSMENT AND PLAN: 66 y/o lady with multiple medical problems including HTN, DVT, IDDM, hypothyroidism, asthma, and endometrial cancer with lung mets who presented with SOB and was found to have asthma exacerbation 1- Asthma exacerbation :improved . - cont prednisone 50 mg daily - cont NEbs - cont symbicort and spiriva - Cont Mucomyst - peak flow 2- Lactic acidosis : likely type B lactic acidosis due to her Solid tumor and Albuterol Nebs . resolved . no evidence of infection lactate normalized 3- Hyperkalemia :resolved 4- IDDM: - increase levemir to 35 BID - cont SSI 5- H/o DVT, - cont home dose lovenox 120 daily 7- HTN: - resume losartan and monitor K 8- Hypothyroidism: - cont decreased dose of synthroid Dispo : HLOC close from dc . probably in 1-2 days PT Pre-post ambulation pulse ox
--- NOTE | 2016-11-26 15:27 | PN ---
Physical Exam: SUBJECTIVE: Patient seen and examined at bedside. Pt's shortness of breath is much improved. No other complaints at this time. Pt denies headache nausea, vomiting, abdominal pain, diarrhea. OBJECTIVE: Vital Signs Period Temp Pulse Resp BP Sys/Encarnacion Pulse Ox Last 24 Hr 98.6 F-99.9 F 90-104 20-20 111-139/49-72 100-100 GENERAL: The patient is awake, alert, and fully oriented, in no acute distress. Cushingoid appearance HEAD: Normal with no signs of trauma. EYES: Sclera anicteric, conjunctiva clear. No ptosis. ENT: oropharynx clear without exudates, moist mucous membranes. NECK: Trachea midline, full range of motion, supple. LUNGS: Breath sounds equal, diffuse wheezing (improved), fine basilar crackles , no accessory muscle use. HEART: Regular rate and rhythm, normal S1, S2 without murmur, rub or gallop. ABDOMEN: Soft, nontender, nondistended, normoactive bowel sounds, no guarding, no rebound, no hepatosplenomegaly, no masses. EXTREMITIES: good capillary refill. Transmetatarsal amputation of right foot, warm, well-perfused, no edema. NEUROLOGICAL: Cranial nerves II through XII grossly intact. Normal speech, gait not observed. PSYCH: Normal mood, normal affect. SKIN: Warm, dry, normal turgor, no rashes or lesions noted Laboratory Results - last 24 hr 11/25/16 11/25/16 11/26/16 16:18 22:25 06:00 Potassium 4.5 POC Glucometer 241 354 11/26/16 11/26/16 06:08 11:39 Potassium POC Glucometer 191 231 Active Medications Generic Name Dose Route Start Last Admin Trade Name Freq PRN Reason Stop Dose Admin Acetaminophen 650 mg 11/22/16 13:58 11/25/16 22:04 Tylenol - PO 650 mg Q6H PRN Administration FEVER OR PAIN Acetylcysteine 200 mg 11/23/16 18:45 11/26/16 12:00 Mucomyst 20 Oral / Inh Use Only* NEB 200 mg QIDR [facility] Administration Albuterol Sulfate 1 amp 11/21/16 12:19 11/23/16 17:25 Ventolin 0.083% Nebulizer Soln - NEB 1 amp Q4H PRN Administration SHORT OF BREATH/WHEEZING Albuterol Sulfate 1 amp 11/23/16 18:43 11/26/16 12:00 Ventolin 0.5% - NEB 1 amp QIDR [facility] Administration Alprazolam 0.5 mg 11/23/16 22:00 11/26/16 13:04 Xanax - PO 0.5 mg TID [facility] Administration Aspirin 81 mg 11/21/16 10:00 11/26/16 09:27 Asa - PO 81 mg DAILY [facility] Administration Atorvastatin Calcium 10 mg 11/21/16 22:00 11/25/16 21:54 Lipitor - PO 10 mg HS [facility] Administration Budesonide/Formoterol Fumarate 2 puff 11/21/16 13:30 11/26/16 09:29 Symbicort 160/4.5mcg - IH 2 puff BID [facility] Administration Cholecalciferol 1,000 unit 11/21/16 02:15 11/21/16 04:03 Vitamin D3 - PO Not Given Q7D [facility] Enoxaparin Sodium 120 mg 11/22/16 10:00 11/26/16 09:28 Lovenox - SQ 120 mg DAILY [facility] Administration Furosemide 40 mg 11/25/16 15:00 11/26/16 09:27 Lasix - PO 40 mg DAILY [facility] Administration Insulin Aspart 1 vial 11/21/16 16:30 11/26/16 11:48 Novolog Vial Sliding Scale - SQ 4 units ACHS [facility] Administration Protocol Insulin Detemir 30 units 11/25/16 15:03 11/26/16 06:38 Levemir Vial SQ 30 units BID@0700,2200 [facility] Administration Levothyroxine Sodium 100 mcg 11/24/16 07:00 11/26/16 06:36 Synthroid - PO 100 mcg DAILY@0700 [facility] Administration Losartan Potassium 50 mg 11/26/16 10:00 11/26/16 09:27 Cozaar - PO 50 mg BID [facility] Administration Megestrol Acetate 80 mg 11/21/16 10:00 11/26/16 09:28 Megace - PO 80 mg BID [facility] Administration Montelukast Sodium 10 mg 11/21/16 22:00 11/25/16 21:55 Singulair - PO 10 mg HS [facility] Administration Nystatin 500,000 units 11/21/16 06:00 11/26/16 11:48 Nystatin Oral Suspension - PO 500,000 units Q6HPO [facility] Administration Ondansetron HCl 8 mg 11/21/16 02:07 11/22/16 13:11 Zofran - PO 8 mg Q8H PRN Administration NAUSEA Oxycodone HCl 10 mg 11/21/16 22:00 11/26/16 03:37 Roxicodone - PO 10 mg Q12H PRN Administration Prednisone 50 mg 11/24/16 10:00 11/26/16 09:26 Deltasone - PO 50 mg DAILY [facility] Administration Sertraline HCl 25 mg 11/21/16 10:00 11/26/16 09:29 Zoloft - PO 25 mg DAILY [facility] Administration Tiotropium [place] 1 puff 11/21/16 13:00 11/26/16 09:27 Spiriva - IH 1 puff DAILY [facility] Administration ASSESSMENT/PLAN: 66yo F with PMH of Endometrial Ca with lung mets, asthma, DVT, HTN, HLD, IDDM, hypothyroidism, diastolic CHF with preserved EF, admitted for asthma exacerbation. #asthma exacerbation -Montelukast -Duonebs QID -Prednisone decreased to 50mg po daily - Cushingoid appearance likely 2/2 long-term steroid use for chronic asthma -peak flow 210 - Pulmonary Consult #Type B Lactic Acidosis: resolved -2/2 tumor + albuterol #oral thrush - Nystatin swish and swallow, Oral Suspension 500,000U PO q6h # Endometrial Ca - hold Tamoxifen Citrate -Will resume on d/c - Onc Consult # IDDM - Levemir 30U SQ q12h insulin, Novolog ISS - cont. poc glucose monitoring #HTN - HOLD Lisinopril -stop amlodipine -Lorsartan # hypercholesterolemia - cont. Atorvastatin 10mg PO HS # hypothyroidism - cont. Synthroid 100mcg PO daily - TSH 0.22, free T4 1.19 # anxiety - cont. Xanax 0.5mg PO daily # Hx of DVT - Lovenox 120mg SQ QD #FEN -not on fluid -lytes WNL -DM diet #PPX -on lovenox Mark Walter MD PGY-1 Visit type - Emergency Visit Emergency Visit: No - New Patient This patient is new to me today: No - Critical Care Critical Care patient: No - Discharge Referral Referred to [facility] Med P.C.: No
[2016-11-26] MEDS ORDERED: ARTIFICIAL TEARS (POLYVINYL ALCOHOL 1.4%) OPTH DROPS OU PRN (15:29)
[2016-11-26] MEDS: MONTELUKAST NA 10 MG TABLET PO SCH (22:16)
[2016-11-26] MEDS: ATORVASTATIN CA 10 MG TABLET (FP) PO SCH (22:16)
[2016-11-27] MEDS: oxyCODONE HCL 5 MG TABLET PO PRN (05:28)
[2016-11-27] MEDS: ALBUTEROL SO4 0.5 % INH SOLN 2.5 MG/0.5 ML VIAL.NEB. NEB SCH ×3 (06:05→18:25)
[2016-11-27] MEDS: ACETYLCYSTEINE 20% 200MG/ML 4 ML VIAL *FOR ORAL / INH USE ONLY NEB SCH ×3 (06:05→18:25)
[2016-11-27] MEDS: INSULIN SLIDING SCALE (NOVOLOG) 1 VIAL SQ SCH ×3 (06:35→17:16)
[2016-11-27] MEDS: ALPRAZolam 0.25 MG TABLET PO SCH ×2 (06:35→13:26)
[2016-11-27] MEDS: NYSTATIN 500,000 UNITS/5 ML SUSPENSION PO SCH ×3 (06:35→17:17)
[2016-11-27] MEDS: INSULIN DETEMIR 100 UNITS/ML MDV SQ SCH (06:36)
[2016-11-27] MEDS: LEVOTHYROXINE NA 100 MCG TABLET (FP) PO SCH (06:36)
[2016-11-27 07:46] LABS: MCHC 32.2 g/dl (32.0-36.0); MEAN CELL VOLUME 80.8 fl (80-96); MEAN PLT VOLUME 8.9 fl (7.5-11.1); PLATELET COUNT 237 K/MM3 (134-434); RDW 17.7 % (11.6-15.6); WHITE BLOOD COUNT 16.4 K/mm3 (4.0-10.0)
[2016-11-27] MEDS: ACETAMINOPHEN 325 MG TABLET (FP) PO PRN ×2 (08:50→17:18)
[2016-11-27] MEDS: LOSARTAN POTASSIUM 50 MG TABLET (FP) PO SCH (10:13)
[2016-11-27] MEDS: FUROSEMIDE 40 MG TABLET (FP) PO SCH (10:13)
[2016-11-27] MEDS: ASPIRIN 81 MG CHEWABLE TABLETS PO SCH (10:13)
[2016-11-27] MEDS: ENOXAPARIN NA (PORCINE) 120 MG/0.8 ML DISP.SYRIN SQ SCH (10:14)
[2016-11-27] MEDS: predniSONE 20 MG TABLET (UD) PO SCH (10:14)
[2016-11-27] MEDS: BUDESONIDE/FORMETEROL FUMARATE 160/4.5 mcg INHALER IH SCH (10:14)
[2016-11-27] MEDS: MEGESTROL ACETATE 40 MG TABLET PO SCH (10:15)
[2016-11-27] MEDS: SERTRALINE HCL 25 MG TABLET (FP) PO SCH (10:16)
[2016-11-27] MEDS: TIOTROPIUM BROMIDE 18 MCG/INH (DEVICE W/ 5 CAPSULES) IH SCH (10:20)
--- NOTE | 2016-11-27 10:34 | PN ---
Progress Note (short form) - Note Progress Note: PULMONARY Feels more short of breath today with nonproductive cough and chest tightness. Last Vital Signs Temp Pulse Resp BP Pulse Ox 98.2 F 83 20 112/65 98 11/27/16 06:00 11/27/16 06:00 11/27/16 06:00 11/27/16 06:00 11/26/16 21:00 Gen: NAD at rest Heart: RRR Lung: bilateral rhonchi, wheezes Abd: soft, nontender Ext: + edema CBC, BMP 11/27/16 06:00 11/26/16 06:00 Active Medications Acetaminophen (Tylenol -) 650 mg PO Q6H PRN PRN Reason: FEVER OR PAIN Last Admin: 11/27/16 08:50 Dose: 650 mg Acetylcysteine (Mucomyst 20 Oral / Inh Use Only*) 200 mg NEB QIDR [facility] Last Admin: 11/27/16 06:05 Dose: 200 mg Albuterol Sulfate (Ventolin 0.083% Nebulizer Soln -) 1 amp NEB Q4H PRN PRN Reason: SHORT OF BREATH/WHEEZING Last Admin: 11/23/16 17:25 Dose: 1 amp Albuterol Sulfate (Ventolin 0.5% -) 1 amp NEB QIDR [facility] Last Admin: 11/27/16 06:05 Dose: 1 amp Alprazolam (Xanax -) 0.5 mg PO TID [facility] Last Admin: 11/27/16 06:35 Dose: 0.5 mg Artificial Tears (Artificial Tears) 1 drop OU QID PRN PRN Reason: DRY EYES Aspirin (Asa -) 81 mg PO DAILY [facility] Last Admin: 11/27/16 10:13 Dose: 81 mg Atorvastatin Calcium (Lipitor -) 10 mg PO HS [facility] Last Admin: 11/26/16 22:16 Dose: 10 mg Budesonide/Formoterol Fumarate (Symbicort 160/4.5mcg -) 2 puff IH BID [facility] Last Admin: 11/27/16 10:14 Dose: 2 puff Cholecalciferol (Vitamin D3 -) 1,000 unit PO Q7D [facility] Last Admin: 11/21/16 04:03 Dose: Not Given Enoxaparin Sodium (Lovenox -) 120 mg SQ DAILY [facility] Last Admin: 11/27/16 10:14 Dose: 120 mg Furosemide (Lasix -) 40 mg PO DAILY [facility] Last Admin: 11/27/16 10:13 Dose: 40 mg Insulin Aspart (Novolog Vial Sliding Scale -) 1 vial SQ ACHS [facility] PRN Reason: Protocol Last Admin: 11/27/16 06:35 Dose: 2 units Insulin Detemir (Levemir Vial) 35 units SQ BID@0700,2200 [facility] Last Admin: 11/27/16 06:36 Dose: 35 units Levothyroxine Sodium (Synthroid -) 100 mcg PO DAILY@0700 [facility] Last Admin: 11/27/16 06:36 Dose: 100 mcg Losartan Potassium (Cozaar -) 50 mg PO BID [facility] Last Admin: 11/27/16 10:13 Dose: 50 mg Megestrol Acetate (Megace -) 80 mg PO BID [facility] Last Admin: 11/27/16 10:15 Dose: 80 mg Montelukast Sodium (Singulair -) 10 mg PO HS [facility] Last Admin: 11/26/16 22:16 Dose: 10 mg Nystatin (Nystatin Oral Suspension -) 500,000 units PO Q6HPO [facility] Last Admin: 11/27/16 06:35 Dose: 500,000 units Ondansetron HCl (Zofran -) 8 mg PO Q8H PRN PRN Reason: NAUSEA Last Admin: 11/22/16 13:11 Dose: 8 mg Oxycodone HCl (Roxicodone -) 10 mg PO Q12H PRN Last Admin: 11/27/16 05:28 Dose: 10 mg Prednisone (Deltasone -) 50 mg PO DAILY [facility] Last Admin: 11/27/16 10:14 Dose: 50 mg Sertraline HCl (Zoloft -) 25 mg PO DAILY [facility] Last Admin: 11/27/16 10:16 Dose: 25 mg Tiotropium [place] (Spiriva -) 1 puff IH DAILY [facility] Last Admin: 11/27/16 10:20 Dose: 1 puff A/P Acute Asthma Exacerbation Metastatic Cervical Ca with lung mets HTN Hypothyroidism PAD h/o DVT - will increase prednisone to BID - inhaled bronchodilators standing and PRN - monitor peak flow - singulair - continue anticoagulation
[2016-11-27] MEDS ORDERED: INSULIN (NOVOLOG) ASPART 100 UNITS/ML 10ML VIAL ONE ×2 (12:20→17:14)
--- NOTE | 2016-11-27 13:50 | PN ---
Teaching Attending Note Name of Resident: Mark Walter ATTENDING PHYSICIAN STATEMENT I saw and evaluated the patient. I reviewed the resident's note and discussed the case with the resident. I agree with the resident's findings and plan as documented. SUBJECTIVE: no fever or chills. still has congested chest. SOB is better . did not sleep last night OBJECTIVE: NAD, AAOx3. MMM. no facial droop CV: RRR Lungs: scattered exp wheezes less than before ,prolonged exp phase . No crackles . improved air movement Ext: erythema on shins. nl warmth of LE ,L leg circumference > R . decreased pitting edema on LE ASSESSMENT AND PLAN: 66 y/o lady with multiple medical problems including HTN, DVT, IDDM, hypothyroidism, asthma, and endometrial cancer with lung mets who presented with SOB and was found to have asthma exacerbation 1- Asthma exacerbation :improved. - Give extra dose of prednisone this evening , then 50 mg daily x 5 days then back to 20 mg BID - cont NEbs - cont symbicort and spiriva - follow up with pulm as out pt 2- Lactic acidosis : likely type B lactic acidosis due to her Solid tumor and Albuterol Nebs . resolved . Not treated with Abx 3- Hyperkalemia :resolved. she needs blood work in 1 week. and if hyperkalemia recurs then she ARB needs to be d/c 4- IDDM: - increase levemir to 40 BID - cont SSI 5- H/o DVT, - cont home dose lovenox 120 daily 7- HTN: - cont losartan and monitor K as out pt 8- Hypothyroidism: - cont decreased dose of synthroid . repeat TFTs as out pt in 4 week Dispo :dc home today . Offered VNS. declines PT at home
--- NOTE | 2016-11-27 14:48 | DS ---
Physical Exam: SUBJECTIVE: Patient seen and examined at bedside. No acute events overnight. Pt is breathing much better than before. No complaints at this time. OBJECTIVE: Vital Signs Period Temp Pulse Resp BP Sys/Encarnacion Pulse Ox Last 24 Hr 98.2 F-99.1 F 83-114 20-20 106-149/55-94 96-100 PHYSICAL EXAM GENERAL: The patient is awake, alert, and fully oriented, in no acute distress. Cushingoid appearance HEAD: Normal with no signs of trauma. EYES: Sclera anicteric, conjunctiva clear. No ptosis. ENT: oropharynx clear without exudates, moist mucous membranes. NECK: Trachea midline, full range of motion, supple. LUNGS: Breath sounds equal, diffuse wheezing (much improved and at baseline), no accessory muscle use. HEART: Regular rate and rhythm, normal S1, S2 without murmur, rub or gallop. ABDOMEN: Soft, nontender, nondistended, normoactive bowel sounds, no guarding, no rebound, no hepatosplenomegaly, no masses. EXTREMITIES: good capillary refill. Transmetatarsal amputation of right foot, warm, well-perfused, no edema. NEUROLOGICAL: Cranial nerves II through XII grossly intact. Normal speech, gait not observed. PSYCH: Normal mood, normal affect. SKIN: Warm, dry, normal turgor, no rashes or lesions noted LABS Laboratory Results - last 24 hr 11/26/16 11/26/16 11/27/16 16:08 22:04 06:00 WBC 16.4 H RBC 4.47 Hgb 11.6 Hct 36.2 MCV 80.8 MCH 26.0 MCHC 32.2 RDW 17.7 H Plt Count 237 MPV 8.9 Neutrophils % Y Neutrophils % (Manual) 70 Band Neuts % (Manual) No Result Required. Lymphocytes % Y Lymphocytes % (Manual) 23 Monocytes % (Manual) 6 Eosinophils % (Manual) No Result Required. Basophils % (Manual) No Result Required. Myelocytes % (Man) No Result Required. Promyelocytes % (Man) No Result Required. Blast Cells % (Manual) No Result Required. Nucleated RBC % No Result Required. Plasma Cells No Result Required. POC Glucometer 280 296 11/27/16 11/27/16 06:07 11:43 WBC RBC Hgb Hct MCV MCH MCHC RDW Plt Count MPV Neutrophils % Neutrophils % (Manual) Band Neuts % (Manual) Lymphocytes % Lymphocytes % (Manual) Monocytes % (Manual) Eosinophils % (Manual) Basophils % (Manual) Myelocytes % (Man) Promyelocytes % (Man) Blast Cells % (Manual) Nucleated RBC % Plasma Cells POC Glucometer 162 258 HOSPITAL COURSE: Date of Admission:11/21/16 Date of Discharge: 11/27/16 66yo F with PMH of Endometrial Ca with lung mets, asthma, DVT, HTN, HLD, IDDM, hypothyroidism, diastolic CHF with preserved EF, admitted for asthma exacerbation. Pt was treated with Nebs, montelukast and prednisone. The patient had her prednisone increased in the hospital and is being discharged with taper back to her home dose with instructions to follow up with her primary care and manager underwriting. Pt's breathing is profoundly improved compared to her state on admission. Her peak flow is currently at baseline of 210. When the patient came in, she had lactic acidosis, for which no source of infection was elucidated. It was established that she had type B lactic acidosis very likely 2/2 her malignancy and albuterol. The patient's DM medications were adjusted in the hospital as she became slightly hypoglycemic and later became hyperglycemic. Her sugars have stabilized and she is being discharged on her home dose. The patient was found to have an oral thrush likely 2/2 her steroids. She was treated with Nystatin swish and swallow. The patient's HTN was managed with her home medications. Her Losartan was held due to hyperkalemia. Her K has resolved and she is being discharged back on Losartan. She was given instructions to follow up with her primary care to get a BMP in approximately 1 week to check her K. If her level is abnormal, she should be taken of ARBs and managed with another medication. The pt's HLD was managed with home meds. The pt's hypothyroidism was treated with synthroid. On admission, her dose was 112 (increased from 100 on a recent admission). TSH on this visit was low, so the pt was put back on her old dose of 100. The pt's anxiety and chronic pain were managd with her home meds. She will resume her Tamoxifen for her malignancy on d/c. She received lovenox during her stay for her history of DVT and hypercoagulable state. The patient successfully walked 120ft with 2 residents from the medical team and was observed walking with the respiratory therapist with an O2 sat of 96% on room air during ambulation. Mark Walter MD PGY-1 Minutes to complete discharge: 45 Discharge Summary Reason For Visit: SEPSIS Current Active Problems Acute asthma exacerbation (Acute) Sepsis (Acute) Systemic inflammatory response syndrome (SIRS) (Acute) Condition: Improved - Instructions Diet, Activity, Other Instructions: You need to follow up with your manager underwriting, Dr. Souza and with your primary care doctor, Dr. Bran in a week or less. You need to have Dr. Bran repeat your thyroid function studies in 4 weeks . Your thyroid medication was decreased to 100 mcg daily You need to follow up with Dr. Bran next week for blood work to check your potassium level as you were found to have elevated potassium during this admission. If your Potassium continues to be elevated, your doctor will likely need to discontinue your medication Cozaar and switch you to another medication. You are going to taper your steroid dose as follows: prednisone 50mg by mouth daily for 5 days. Then, resume your home dose of 20mg by mouth twice daily. Your manager underwriting can reassess and adjust your steroid dose as an outpatient. You need to take your prescribed medications as directed. You will need to continue with your home oxygen with the same setting. If your symptoms get worse or if you develop new symptoms, please return to the emergency department. Referrals: Zahida Bran MD [Primary Care Provider] - 1 Week Rio Souza MD, [Staff Physician] - 1 Week Disposition: HOME - Home Medications Comprehensive Discharge Medication List: Ambulatory Orders Albuterol Sulfate Inhaler - [Ventolin HFA Inhaler -] 2 inh PO Q6H 11/21/16 Clotrimazole [Mycelex -] 10 mg PO 5XD 11/21/16 Furosemide [Lasix] 40 mg PO DAILY 11/21/16 Insulin (Novolog) [Novolog Flexpen -] See Protocol SQ TID 11/21/16 Insulin Glargine,Hum.rec.anlog [Lantus Solostar PEN -] 40 units SQ BID 11/21/16 Levothyroxine [Synthroid -] 100 mcg PO DAILY 11/21/16 Losartan Potassium 50 mg PO BID 11/21/16 Megestrol Acetate 80 mg PO BID 11/21/16 Montelukast Na [Singulair -] 1 tab HS 11/21/16 Nystatin Oral Suspension - [Nystatin Oral Susp 858927 Units/5 ML -] 5 ml PO BID 11/21/16 Ondansetron HCl [Zofran] 4 mg PO BID 11/21/16 Prednisone [Deltasone] 20 mg PO BID 11/21/16 Ranitidine HCl [Zantac] 300 mg PO HS 11/21/16 Tamoxifen Citrate 20 mg PO BID 11/21/16 Alprazolam [Xanax] 0.5 mg PO TID PRN 11/23/16 Oxycodone HCl [Roxicodone] 15 mg PO TID PRN 11/23/16 Acetaminophen [Tylenol .Regular Strength -] 650 mg PO Q6H PRN #0 tablet Albuterol 0.083% Nebulizer Kandace [Ventolin 0.083% Nebulizer Soln -] 1 amp NEB Q4H PRN #0 amp 11/27/16 Albuterol Sulfate 0.5% [Ventolin 0.5% Nebulizing Soln. -] 1 amp NEB QIDR amp Aspirin [ASA -] 81 mg PO DAILY tab.chew 11/27/16 Atorvastatin Ca [Lipitor] 10 mg PO HS tablet 11/27/16 Budesonide/Formeterol Fumarate [SYMBICORT 160/4.5mcg -] 2 puff IH BID inhaler 11/27/16 Cholecalciferol (Vitamin D3) [Vitamin D -] 1,000 unit PO Q7D tab 11/27/16 Enoxaparin [Lovenox -] 120 mg SQ DAILY #30 dis.syr 11/27/16 Nystatin Powder 1 applic TP BID #0 bottle 11/27/16 Polyvinyl Alcohol [Artificial Tears] 1 drop OU QID PRN #1 bottle 11/27/16 Prednisone [Prednisone 50 MG TABLETS] See Taper PO DAILY #14 tablet 11/27/16 Proventil HFA Inhaler - 1 puff IN DAILY #0 inh 11/27/16 Tiotropium [place] [Spiriva] 1 puff IH DAILY #1 inh 11/27/16 This patient is new to me today: No Emergency Visit: No Critical Care patient: No - Discharge Referral Referred to [facility] Med P.C.: No
[2016-11-27 18:47] VITALS: BP 139/62; PULSE 86; TEMP 98.6
[2016-11-27] MEDS ORDERED: predniSONE 20 MG TABLET (UD) PO SCH (22:00)
== END 2016-11-27 20:00 | disposition home or self-care (01) | DRG 181 ==
LOC: JER 17:14 → JERBED 11-21 00:23 → J4S 11-21 02:37 → J7W 11-24 21:12
PROVIDERS: ADMIT Internal Medicine; ATTEND Internal Medicine
DX: C78.00 Secondary malignant neoplasm of unspecified lung (principal); J45.901 Unspecified asthma with (acute) exacerbation; E24.2 Drug-induced Cushing's syndrome; B37.0 Candidal stomatitis; E87.2 Acidosis; N17.9 Acute kidney failure, unspecified; I50.32 Chronic diastolic (congestive) heart failure; E11.9 Type 2 diabetes mellitus without complications; Z79.4 Long term (current) use of insulin; I10 Essential (primary) hypertension; J44.9 Chronic obstructive pulmonary disease, unspecified; T38.0X5A Adverse effect of glucocorticoids and synthetic analogues, initial encounter; C54.1 Malignant neoplasm of endometrium; E03.9 Hypothyroidism, unspecified; Z86.718 Personal history of other venous thrombosis and embolism; Z86.711 Personal history of pulmonary embolism; E78.5 Hyperlipidemia, unspecified; I25.10 Atherosclerotic heart disease of native coronary artery without angina pectoris; E78.00 Pure hypercholesterolemia, unspecified; Z89.421 Acquired absence of other right toe(s); F41.9 Anxiety disorder, unspecified; I73.9 Peripheral vascular disease, unspecified; E66.9 Obesity, unspecified; Z68.37 Body mass index [BMI] 37.0-37.9, adult; Z90.710 Acquired absence of both cervix and uterus; E87.5 Hyperkalemia
CPT/HCPCS: 36415; 71010-TC; 71020-TC; 71275-TC; 80048; 80053; 81003; 81015; 82803; 83605; 83615; 83735; 83880; 84132; 84439; 84443; 84484; 84550; 85025; 85027; 85610; 87040; 87086; 93005; 93010; 94150; 94640; 94761; 97116-GP; 97161-GP; 99284-25; J8999

== ENCOUNTER 2016-12-10 08:27 | Day surgery (SDC) | payer OTHER ==
[2016-12-06 12:08] VITALS: BMI 37.0
[~2016-12-10 08:27] MED LIST: PHENYLEPHRINE/KETOROLAC 4 ML VIAL IO ONE; TOBRA 0.3%/DEXAMETH 0.1% OPHTHALMIC SUSP 2.5 ML BTL OS ONE
[2016-12-10] MEDS ORDERED: MOXIFLOXACIN HCL 0.5% OPHTHALMIC 3 ML BOTTLE ONE (09:01)
[2016-12-10] MEDS ORDERED: PHENYLEPHRINE 2.5% OPHTH SOLN 15 ML BOTTLE ONE (09:01)
[2016-12-10] MEDS ORDERED: TROPICAMIDE 1% OPHTH SOLN 15 ML BOTTLE ONE (09:01)
[2016-12-10] MEDS ORDERED: CYCLOPENTOLATE HCL 1% OPHTH SOLN 2 ML BOTTLE ONE (09:01)
[2016-12-10] MEDS ORDERED: FLURBIPROFEN 0.03% OPHTH SOLN 2.5 ML BOTTLE ONE (09:01)
[2016-12-10] MEDS ORDERED: TOBRA 0.3%/DEXAMETH 0.1% OPHTHALMIC SUSP 2.5 ML BTL ONE (09:54)
[2016-12-10] MEDS ORDERED: TETRACAINE 0.5% OPHTH SOLN 2 ML BOTTLE ONE (09:54)
[2016-12-10] MEDS ORDERED: LIDOCAINE HCL/PF 1% SDV 5ML VIAL ONE ×2 (09:54→11:25)
[2016-12-10] MEDS ORDERED: EPINEPHrine/PF 1 MG/1 ML (1:1,000) AMPULE ONE (09:54)
[2016-12-10] MEDS ORDERED: POVIDONE-IODINE 5% OPHTHALMIC PREP 30 ML SOLUTION ONE (09:55)
[2016-12-10] MEDS ORDERED: BSS (NA/CA/MG/K) BALANCED SALT SOLUTION OPHTH SOLN 15 ML BOTTLE ONE (09:55)
[2016-12-10] MEDS ORDERED: FLURBIPROFEN 0.03% OPHTH SOLN 2.5 ML BOTTLE OS ONE ×3 (10:10→10:25)
[2016-12-10] MEDS ORDERED: CYCLOPENTOLATE HCL 1% OPHTH SOLN 2 ML BOTTLE OS ONE ×3 (10:10→10:25)
[2016-12-10] MEDS ORDERED: TROPICAMIDE 1% OPHTH SOLN 15 ML BOTTLE OS ONE ×3 (10:10→10:25)
[2016-12-10] MEDS ORDERED: MOXIFLOXACIN HCL 0.5% OPHTHALMIC 3 ML BOTTLE OS ONE ×3 (10:10→10:25)
[2016-12-10] MEDS ORDERED: PHENYLEPHRINE 2.5% OPHTH SOLN 15 ML BOTTLE OS ONE ×2 (10:10→10:20)
[2016-12-10] MEDS ORDERED: TROPICAMIDE 0.5% OPHTHALMIC SOLN 15 ML BOTTLE OS ONE (10:25)
[2016-12-10] MEDS ORDERED: TETRACAINE 0.5% OPHTH SOLN 2 ML BOTTLE TP ONE (11:20)
[2016-12-10] MEDS ORDERED: MIDAZOLAM HCL 2 MG/2 ML SINGLE DOSE VIAL ONE (11:26)
[2016-12-10] MEDS ORDERED: POVIDONE-IODINE 5% OPHTHALMIC PREP 30 ML SOLUTION OS ONE (11:28)
[2016-12-10] MEDS ORDERED: LIDOCAINE HCL 1% PRESERVATIVE FREE - 30ML VIAL IO ONE (11:38)
[2016-12-10] MEDS ORDERED: CHONDROITIN SU A/HYALUR SOD 1 KIT IO ONE (11:38)
[2016-12-10] MEDS ORDERED: BSS (NA/CA/MG/K) BALANCED SALT SOLUTION OPHTH SOLN 15 ML BOTTLE OS ONE (11:38)
[2016-12-10] MEDS ORDERED: PHENYLEPHRINE/KETOROLAC 4 ML VIAL IO ONE (11:43)
[2016-12-10] MEDS ORDERED: TOBRA 0.3%/DEXAMETH 0.1% OPHTHALMIC SUSP 2.5 ML BTL OS ONE (12:13)
[2016-12-10] MEDS ORDERED: oxyCODONE HCL 5 MG TABLET PO PRN (12:30)
[2016-12-10 12:55] VITALS: TEMP 98.6
[2016-12-10 14:08] VITALS: BP 153/68; PULSE 96
--- NOTE | 2016-12-11 00:49 | OP ---
DATE OF OPERATION: 12/10/2016 PREOPERATIVE DIAGNOSIS: Cataract, left eye. POSTOPERATIVE DIAGNOSIS: Cataract, left eye. PROCEDURE: Phacoemulsification of cataract, left eye, with implant placement SNCBOWF 21.5 diopter intraocular lens. ANESTHESIA: Local. PROCEDURE: The patient was brought to the operating room and the left eye was prepped and draped in the usual sterile fashion for ophthalmic surgery. After placing tetracaine eyedrops, the microscope was swung into position and a 2.75 keratome was used to enter the anterior chamber at approximately the 2 o'clock position with a capsulorrhexis made at the 5 o'clock position after filling the anterior chamber with viscoelastic and 0.5 mL of preservative free lidocaine. The cystotome and Utrata forceps were used to make a continuous circular capsulorrhexis. BSS was used to perform hydrodissection and hydrodelineation. The lens nucleus was rotated freely. Phacoemulsification was carried out in a [id number] technique. The I/A was used to remove the residual capsular material. The capsular bag was found to be intact and filled with Provisc, which was injected the SNCBOWF 21.5 IOL and rotated in position using the Sinskey hook. I/A was used to remove the residual viscoelastic from the capsular bag and anterior chamber. The BSS was used to hydrate the ellipse of the corneal wound, which was found to be intact. A contact lens soaked in Tobradex solution was then placed on the cornea and the eye was patched and shielded. The patient was transferred to the recovery room in stable condition. There was some conjunctival ecchymosis and corneal wound bleed secondary to vascularization of the superior cornea, which was well controlled during the procedure. Hemostasis was achieved. CHELI ARREGUIN M.D. [id number]
== END 2016-12-10 14:00 | disposition home or self-care (01) ==
LOC: JASU-SURG 08:27
PROVIDERS: ATTEND Ophthalmology
PROC: 08RK3JZ Replacement of Left Lens with Synthetic Substitute, Percutaneous Approach (ICD-10-PCS; principal; 2016-12-10 11:00)
DX: H26.9 Unspecified cataract (principal)
CPT/HCPCS: 94760; C9447

== ENCOUNTER 2016-12-14 22:35 | Inpatient (IN) | payer OTHER ==
--- NOTE | 2016-12-14 23:06 | PDOC ---
Attending Attestation - Resident Resident Name: Dameon Morgan - ED Attending Attestation I have performed the following: I have examined & evaluated the patient, The case was reviewed & discussed with the resident, I agree w/resident's findings & plan, Exceptions are as noted - HPI HPI: 66 yo F history endometrial CA (possibly cervical- poor historian) presents with abdominal pain for past 2 days. Denies dysuria, fever, chills. She notes that she has been vomiting. Also c/o constipation, cough, and SOB. No prior similar symptoms. - Physicial Exam PE: GENERAL: Awake, alert, and fully oriented, appears in obvious discomfort. + Cushingoid appearance. HEAD: No signs of trauma EYES: PERRLA, EOMI, sclera anicteric, conjunctiva clear ENT: Auricles normal inspection, hearing grossly normal, nares patent, oropharynx clear without exudates. Dry mucosa NECK: Normal ROM, supple, no lymphadenopathy, JVD, or masses LUNGS: Breath sounds equal, clear to auscultation bilaterally. No wheezes, and no crackles HEART: Regular rate and rhythm, normal S1 and S2, no murmurs, rubs or gallops ABDOMEN: Soft, diffuse mod tenderness, normoactive bowel sounds. No guarding, no rebound. +Multiple palpable masses. EXTREMITIES: Normal range of motion, 2+ BLE pitting. No clubbing or cyanosis. No cords, erythema, or tenderness NEUROLOGICAL: Cranial nerves II through XII grossly intact. Normal speech, normal gait. Motor and sensation intact. SKIN: Warm, Dry, normal turgor. +Multiple areas with petechiae or ecchymoses to the lower abdomen. - Medical Decision Making See resident note for my MDM.
[2016-12-14] MEDS ORDERED: SODIUM CHLORIDE 0.9% 500 ML INFUS.BAG IV ONE (23:20)
[2016-12-14] MEDS ORDERED: ALBUTEROL SO4 2.5/IPRATROPIUM 0.5 INH SOL 3 ML VIAL.NEB. NEB ONE (23:20)
[2016-12-14] MEDS ORDERED: ONDANSETRON 4 MG/2 ML VIAL IVPUSH ONE (23:20)
--- NOTE | 2016-12-14 23:29 | PDOC ---
History of Present Illness - General History Source: Patient Exam Limitations: Clinical Condition - History of Present Illness Initial Comments: 12/14/16 23:23 Patient is a 66F with history of asthma, endometrial cancer with mets to lungs ( currently on chemo), HTN, diastolic heart failure, and IDDM here today complaining of abdominal pain for the past two days. She also complaining of associated nausea, vomiting, constipation, cough and shortness of breath. The abdominal pain is worse in her left lower quadrant, but her abdomen is diffusely tender. It started two days ago, but has worsened especially in the past few hours. Her last bowel movement was two days ago. She reports no blood in her vomit or stool. She reports abdominal distention, worsening over an unknown period of time. She denies fevers and chills. <Dameon Morgan - Last Filed: 12/15/16 00:05> <Lazara Cid - Last Filed: 12/15/16 04:18> - General Chief Complaint: Pain Stated Complaint: STOMACH PAIN Time Seen by Provider: 12/14/16 22:46 Past History - Past Medical History Anemia: Yes Asthma: Yes Cancer: Yes (cervical, lung ca, S/P CHEMO 2013, RADIATION) Cardiac Disorders: Yes (CAD) CVA: No COPD: Yes CHF: No Dementia: No Diabetes: Yes GI Disorders: No Disorders: No HTN: Yes Hypercholesterolemia: Yes Liver Disease: No Suicide Attempt (Hx): No Seizures: No Thyroid Disease: Yes (hypothryoidism) - Surgical History Abdominal Surgery: Yes (UMBILICAL hernia repair) Appendectomy: No Cardiac Surgery: Yes (LLE Bypass) Cholecystectomy: Yes Lung Surgery: No Neurologic Surgery: No Orthopedic Surgery: Yes (amputation rt 3rd and 4th toes) - Family Disease History Family Disease History: Diabetes: Mother, Heart Disease: Father - Immunization History Td Vaccination: Yes TDAP Vaccination: Yes Immunization Up to Date: Yes - Psycho/Social/Smoking Cessation Hx Anxiety: No Suicidal Ideation: No Smoking Status: No Smoking History: Never smoked Years of Tobacco Use: 0 Have you smoked in the past 12 months: No Number of Cigarettes Smoked Daily: 0 Cigars Per Day: 0 Hx Alcohol Use: No Drug/Substance Use Hx: No Substance Use Type: None Hx Substance Use Treatment: No <Dameon Morgan - Last Filed: 12/15/16 00:05> <Lazara Cid - Last Filed: 12/15/16 04:18> - Past Medical History Allergies/Adverse Reactions: Allergies Allergy/AdvReac Type Severity Reaction Status Date / Time Penicillins Allergy Unknown Hives Verified 12/14/16 22:41 Home Medications: Ambulatory Orders Albuterol Sulfate Inhaler - [Ventolin HFA Inhaler -] 2 inh PO Q6H 11/21/16 Clotrimazole [Mycelex -] 10 mg PO 5XD 11/21/16 Furosemide [Lasix] 40 mg PO DAILY 11/21/16 Insulin (Novolog) [Novolog Flexpen -] See Protocol SQ TID 11/21/16 Insulin Glargine,Hum.rec.anlog [Lantus Solostar PEN -] 40 units SQ BID 11/21/16 Levothyroxine [Synthroid -] 100 mcg PO DAILY 11/21/16 Losartan Potassium 50 mg PO BID 11/21/16 Megestrol Acetate 80 mg PO BID 11/21/16 Montelukast Na [Singulair -] 1 tab HS 11/21/16 Ondansetron HCl [Zofran] 4 mg PO BID 11/21/16 Ranitidine HCl [Zantac] 300 mg PO HS 11/21/16 Tamoxifen Citrate 20 mg PO BID 11/21/16 Alprazolam [Xanax] 0.5 mg PO TID PRN 11/23/16 Oxycodone HCl [Roxicodone] 15 mg PO TID PRN 11/23/16 Acetaminophen [Tylenol .Regular Strength -] 650 mg PO Q6H PRN #0 tablet Albuterol Sulfate 0.5% [Ventolin 0.5% Nebulizing Soln. -] 1 amp NEB QIDR amp Aspirin [ASA -] 81 mg PO DAILY tab.chew 11/27/16 Atorvastatin Ca [Lipitor] 10 mg PO HS tablet 11/27/16 Budesonide/Formeterol Fumarate [SYMBICORT 160/4.5mcg -] 2 puff IH BID inhaler 11/27/16 Cholecalciferol (Vitamin D3) [Vitamin D -] 1,000 unit PO Q7D tab 11/27/16 Enoxaparin [Lovenox -] 120 mg SQ DAILY #30 dis.syr 11/27/16 Nystatin Powder 1 applic TP BID #0 bottle 11/27/16 Polyvinyl Alcohol [Artificial Tears] 1 drop OU QID PRN #1 bottle 11/27/16 Tiotropium [place] [Spiriva] 1 puff IH DAILY #1 inh 11/27/16 Prednisone [Deltasone -] 20 mg PO HS 12/10/16 Prednisone [Prednisone 50 MG TABLETS] 50 mg PO DAILY 12/10/16 Review of Systems - Review of Systems Comments:: 12/14/16 23:27 GENERAL/CONSTITUTIONAL: No fever or chills. HEAD, EYES, EARS, NOSE AND THROAT: No change in vision. No ear pain or discharge. No sore throat. CARDIOVASCULAR: No chest pain. Positive for shortness of breath. RESPIRATORY: Positive for cough and wheezing. No hemoptysis. GASTROINTESTINAL: Positive for nausea, vomiting, and constipation GENITOURINARY: No dysuria, frequency, or change in urination. MUSCULOSKELETAL: Positive for leg and back pain SKIN: Positive for skin bruising NEUROLOGIC: No headache, loss of consciousness, or change in strength/sensation. HEMATOLOGIC/LYMPHATIC: History of easy bleeding, history of blood clots <Dameon Morgan - Last Filed: 12/15/16 00:05> *Physical Exam - Vital Signs Last Vital Signs Temp Pulse Resp BP Pulse Ox 98.3 F 111 H 20 92/45 93 L 12/14/16 22:37 12/14/16 22:37 12/14/16 22:37 12/14/16 22:37 12/14/16 22:37 - Physical Exam Comments: 12/14/16 23:29 GENERAL: Awake, alert, and in moderate distress HEAD: No signs of trauma, Cushonoid alvarado facies, atraumatic EYES: PERRLA, EOMI, sclera anicteric, conjunctiva clear ENT: Auricles normal inspection, hearing grossly normal, nares patent, oropharynx clear without exudates. Dry mucosa LUNGS: In mild distress, speaks full sentences, wheezes bilaterally HEART: Regular rhythm, tachycardic, normal s1/s2 ABDOMEN: Distended, diffusely tender to palpation, multiple abnormal masses, bruising on lower abdomen, no fluid wave EXTREMITIES: 2+ pitting edema to at least knee NEUROLOGICAL: Cranial nerves II through XII grossly intact. Normal speech, no focal sensorimotor deficits SKIN: Warm, Dry, multiple bruises over skin in various stages of healing <Dameon Morgan - Last Filed: 12/15/16 00:05> - Vital Signs Last Vital Signs Temp Pulse Resp BP Pulse Ox 98.3 F 118 H 20 128/61 98 12/14/16 22:37 12/15/16 01:08 12/15/16 01:08 12/15/16 01:08 12/15/16 01:08 <Lazara Cid - Last Filed: 12/15/16 04:18> Heart Score/ECG Review - History History: Slightly suspicious - Electrocardiogram EKG: Non specific repolarization disturbance - Age Age: >/= 65 - Risk Factors Risk Factors Heart Score: Yes Hx Hypercholesterolemia, Yes Hx Hypertension, Yes Hx Diabetes Based on the list above the patient has:: >/=3 risk factors or Hx atherosclerotic disease - Troponin Troponin: >/=3x normal limit - Score Heart Score - Total: 7 <Lazara Cid - Last Filed: 12/15/16 04:18> ED Treatment Course - RADIOLOGY Radiology Studies Ordered: Category Date Time Status CHEST X-RAY PORTABLE* [RAD] Stat Radiology 12/14/16 23:18 Ordered <Dameon Morgan - Last Filed: 12/15/16 00:05> - LABORATORY CBC & Chemistry Diagram: 12/15/16 00:27 12/15/16 00:27 - ADDITIONAL ORDERS Additional order review: Laboratory Results 12/15/16 12/15/16 12/15/16 00:51 00:27 00:27 INR PTT (Actin FS) VBG pH 7.35 POC VBG pCO2 61.4 H* POC VBG pO2 34.1 D Mixed VBG HCO3 33.0 H Sodium 140 Potassium 4.4 Chloride 96 L Carbon Dioxide 33 H Anion Gap 11 BUN 36 H D Creatinine 1.5 H D Creat Clearance w eGFR 34.85 Random Glucose 54 L Lactic Acid 3.1 H* Calcium 8.8 Total Bilirubin 0.5 D AST 53 H D ALT 47 D Alkaline Phosphatase 98 Creatine Kinase 178 Creatine Kinase Index 7.1 H* CK-MB (CK-2) 12.648 H Troponin I 6.77 H* Total Protein 6.4 Albumin 3.1 L Urine Color Urine Appearance Urine pH Urine Protein Urine Glucose (UA) Urine Ketones Urine Blood Urine Nitrite Urine Bilirubin Urine Urobilinogen Ur Leukocyte Esterase Urine RBC Urine WBC Ur Epithelial Cells Urine Bacteria Hyaline Casts Urine Mucus 12/15/16 12/15/16 00:27 00:27 INR 0.95 PTT (Actin FS) 28.2 VBG pH POC VBG pCO2 POC VBG pO2 Mixed VBG HCO3 Sodium Potassium Chloride Carbon Dioxide Anion Gap BUN Creatinine Creat Clearance w eGFR Random Glucose Lactic Acid Calcium Total Bilirubin AST ALT Alkaline Phosphatase Creatine Kinase Creatine Kinase Index CK-MB (CK-2) Troponin I Total Protein Albumin Urine Color Lt. yellow Urine Appearance Clear Urine pH 5.5 Urine Protein 1+ H Urine Glucose (UA) Negative Urine Ketones Trace H Urine Blood Negative Urine Nitrite Negative Urine Bilirubin 1+ H Urine Urobilinogen 0.2 Ur Leukocyte Esterase Negative Urine RBC 1 Urine WBC 1 Ur Epithelial Cells Rare Urine Bacteria Rare Hyaline Casts 91 Urine Mucus Many 12/15/16 00:27 RBC 4.79 MCV 81.1 MCHC 32.3 RDW 17.4 H MPV 8.0 D Neutrophils % Y Lymphocytes % Y - Medications Given in the ED: ED Medications Discontinued Medications Generic Name Dose Route Start Last Admin Trade Name Josephq PRN Reason Stop Dose Admin Albuterol/Ipratropium 1 amp 12/14/16 23:20 12/15/16 00:46 Duoneb - NEB 12/14/16 23:21 1 amp ONCE ONE Administration Fentanyl 50 mcg 12/14/16 23:20 12/15/16 00:46 Sublimaze Injection - IVPUSH 12/14/16 23:21 50 mcg ONCE ONE Administration Ondansetron HCl 4 mg 12/14/16 23:20 12/15/16 00:46 Zofran Injection IVPUSH 12/14/16 23:21 4 mg ONCE ONE Administration Sodium Chloride 250 ml 12/14/16 23:20 12/15/16 00:46 Normal Saline - IV 12/14/16 23:21 250 ml ONCE ONE Administration <Lazara Cid - Last Filed: 12/15/16 04:18> Medical Decision Making - Medical Decision Making 12/14/16 23:33 Patient is a 66F with history of endometrial cancer currently on chemo, asthma, HTN, CHF, and IDDM here today complaining of abdominal pain. Vital signs show tachycardia, tachypnia, 93% on room air, afebrile, blood pressure of 92/45. Concern that patient is hypotensive given prior history of HTN. Differential is broad and includes, but is not limited to: SBO, perforation, tumor mass burden, and diverticulitis. Patient will be evaluated with septic workup plus ct abdomen. Will treat with zofran, 250ml NS, duonebs and 50 mcg of fentanyl. Will reassess after fluids and medications given. 12/15/16 00:[address] Cid. <Dameon Morgan - Last Filed: 12/15/16 00:05> - Medical Decision Making 12/15/16 01:53 Pt found to have positive troponin. No ST elevations or depressions on EKG. Paged Dr. Moise, covering cardiology. 12/15/16 02:22 Heparin drip started. While PE might otherwise be a possibility, patient has been on outpatient lovenox, making this less likely. She has no prior history of OK, but does have multiple risk factors. She is also noted to have elevated lactate, which appears to be preexisting, on review of prior labs. She has also had leukocytosis. D/w Dr. Hart, will admit on telemetry for suspected NSTEMI. <Lazara Cid - Last Filed: 12/15/16 04:18> *DC/Admit/Observation/Transfer <Dameon Morgan - Last Filed: 12/15/16 00:05> - Discharge Dispostion Admit: Yes <Lazara Cid - Last Filed: 12/15/16 04:18> Diagnosis at time of Disposition: NSTEMI (non-ST elevated myocardial infarction) Abdominal pain Qualifiers: Abdominal location: unspecified location Qualified Code(s): R10.9 - Unspecified abdominal pain - Discharge Dispostion Condition at time of disposition: Guarded - Referrals
[2016-12-15] MEDS ORDERED: ALBUTEROL SO4 2.5/IPRATROPIUM 0.5 INH SOL 3 ML VIAL.NEB. NEB ONE (00:08)
[2016-12-15] MEDS ORDERED: ONDANSETRON 4 MG/2 ML VIAL ONE (00:09)
[2016-12-15 00:48] LABS: MCH 26.2 pg (25.7-33.7); MCHC 32.3 g/dl (32.0-36.0); MEAN CELL VOLUME 81.1 fl (80-96); PLATELET COUNT 252 K/MM3 (134-434); RDW 17.4 % (11.6-15.6); WHITE BLOOD COUNT 19.2 K/mm3 (4.0-10.0)
[2016-12-15 00:51] LABS: VENOUS PH 7.35 (7.32-7.42)
[2016-12-15 01:01] LABS: INR 0.95 (0.82-1.09); PROTHROMBIN TIME (PATIENT) 10.4 SEC (9.98-11.88)
[2016-12-15 01:03] LABS: ACTIVATED PTT 28.2 SECONDS (26.9-34.4)
[2016-12-15 01:07] LABS: PH,URINE 5.5 (5.0-8.0); URINE APPEARANCE CLEAR; URINE BILIRUBIN 1+ (NEGATIVE); URINE BLOOD NEGATIVE (NEGATIVE); URINE COLOR LT. YELLOW; URINE GLUCOSE (UA) NEGATIVE (NEGATIVE); URINE KETONE TRACE (NEGATIVE); URINE LEUK ESTERASE NEGATIVE (NEGATIVE); URINE NITRITE NEGATIVE (NEGATIVE); URINE UROBILINOGEN 0.2 mg/dL (0.2-1.0)
[2016-12-15 01:09] LABS: URINE PROTEIN 1+ (NEGATIVE)
[2016-12-15 01:18] LABS: URINE BACTERIA RARE /hpf (NONE SEEN); URINE HYALINE CAST 91 /lpf; URINE MUCUS MANY; URINE RBC 1 /hpf (0-3); URINE WBC 1 /hpf (3-5)
[2016-12-15 01:20] LABS: ALBUMIN 3.1 g/dl (3.4-5.0); ANION GAP 11 (8-16); CALCIUM 8.8 mg/dL (8.5-10.1); CO2 33 mmol/L (21-32); CREATININE 1.5 mg/dL (0.55-1.02); GLUCOSE,RANDOM 54 mg/dL (74-106); SGOT/AST 53 U/L (15-37); SGPT/ALT 47 U/L (12-78)
[2016-12-15 01:36] LABS: ALK PHOS 98 U/L (45-117); BILIRUBIN,TOTAL 0.5 mg/dL (0.2-1.0); CPK 178 IU/L (26-192); TOT PROT 6.4 g/dl (6.4-8.2)
[2016-12-15 01:38] LABS: TROPONIN I 6.77 ng/ml (0.00-0.05)
[2016-12-15 01:42] LABS: TOTAL CELLS COUNTED 100
[2016-12-15] MEDS ORDERED: HEPARIN NA (PORCINE) 5,000 UNITS/ML 1ML VIAL IVPUSH ONE (01:44)
[2016-12-15] MEDS ORDERED: HEPARIN - 25,000 UNIT in SODIUM CHLORIDE 495 ML IV SCH (01:45)
[2016-12-15] MEDS ORDERED: morphine CARPU-JECT 4 MG/1 ML DISP.SYRIN IVPUSH ONE (01:52)
[2016-12-15] MEDS ORDERED: morphine CARPU-JECT 4 MG/1 ML DISP.SYRIN ONE (02:04)
[2016-12-15] MEDS ORDERED: HEPARIN NA (PORCINE) 5,000 UNITS/ML 1ML VIAL ONE (02:04)
[2016-12-15] MEDS ORDERED: HEPARIN INFUSION - 500 ML IVPB ONE (02:05)
--- NOTE | 2016-12-15 02:26 | PN ---
Teaching Attending Note Name of Resident: Patrice Bradford ATTENDING PHYSICIAN STATEMENT I saw and evaluated the patient. I reviewed the resident's note and discussed the case with the resident. I agree with the resident's findings and plan as documented. SUBJECTIVE:Patient presented to ED c/o Abdominal pain and constipation for 3 days, denies nausea, vomiting or diarrhea. OBJECTIVE: Patient lethargic and cooperative, morbid obesity with hirsutism, alvarado facies. CVS: tachycardia, no M/G/R, Lungs Rhonchi no wheeze. Abdomen globus with ecchymotic lesion from lovenox injection, multiple tumors palpated. Ext: b/l 2+ pitting edema CBCD WBC 19.2 K/mm3 (4.0-10.0) H 12/15/16 00:27 RBC 4.79 M/mm3 (3.60-5.2) 12/15/16 00:27 Hgb 12.6 GM/dL (10.7-15.3) 12/15/16 00:27 Hct 38.8 % (32.4-45.2) 12/15/16 00:27 MCV 81.1 fl (80-96) 12/15/16 00:27 MCHC 32.3 g/dl (32.0-36.0) 12/15/16 00:27 RDW 17.4 % (11.6-15.6) H 12/15/16 00:27 Plt Count 252 K/MM3 (134-434) 12/15/16 00:27 MPV 8.0 fl (7.5-11.1) D 12/15/16 00:27 CMP Sodium 140 mmol/L (136-145) 12/15/16 00:27 Potassium 4.4 mmol/L (3.5-5.1) 12/15/16 00:27 Chloride 96 mmol/L (98-107) L 12/15/16 00:27 Carbon Dioxide 33 mmol/L (21-32) H 12/15/16 00:27 Anion Gap 11 (8-16) 12/15/16 00:27 BUN 36 mg/dL (7-18) H D 12/15/16 00:27 Creatinine 1.5 mg/dL (0.55-1.02) H D 12/15/16 00:27 Creat Clearance w eGFR 34.85 (>60) 12/15/16 00:27 Random Glucose 54 mg/dL (74-106) L 12/15/16 00:27 Calcium 8.8 mg/dL (8.5-10.1) 12/15/16 00:27 Total Bilirubin 0.5 mg/dL (0.2-1.0) D 12/15/16 00:27 AST 53 U/L (15-37) H D 12/15/16 00:27 ALT 47 U/L (12-78) D 12/15/16 00:27 Alkaline Phosphatase 98 U/L (45-117) 12/15/16 00:27 Total Protein 6.4 g/dl (6.4-8.2) 12/15/16 00:27 Albumin 3.1 g/dl (3.4-5.0) L 12/15/16 00:27 CARDIAC ENZYMES Creatine Kinase 170 IU/L (26-192) 12/15/16 04:01 Troponin I 5.43 ng/ml (0.00-0.05) H* 12/15/16 04:01 ASSESSMENT AND PLAN: Admitted for NSTEMI- trended troponins, heparin, ASA, statins cardiology consult Dr YUN SMITH possible cardiorenal effect 40 lasix stat and follow BMP Abdominal pain possibly from obstruction vs constipation- Senna and colace Palliative care consult, advanced directive discussed and is HCP but no thought about DNR or DNI, PATIENT IS FULL CODE. Poor prognosis Continue home medications.
[2016-12-15] MEDS ORDERED: ALBUTEROL SO4 6.7 GM HFA INHALER IH PRN ×2 (03:43→14:40)
[2016-12-15] MEDS ORDERED: OXYCODONE HCL 15 MG PO PRN (03:43)
[2016-12-15] MEDS ORDERED: oxyCODONE HCL 10 MG SUSTAINED ACTING TABLET ONE (04:00)
[2016-12-15] MEDS ORDERED: ASPIRIN 325 MG TABLET PO ONE (04:02)
[2016-12-15] MEDS ORDERED: ATORVASTATIN CA 80 MG TABLET (FP) PO ONE (04:03)
[2016-12-15] MEDS ORDERED: oxyCODONE HCL 5 MG TABLET PO PRN (04:12)
--- NOTE | 2016-12-15 04:36 | HP ---
CHIEF COMPLAINT: abdominal pain PCP: Shant Historian: pt herself, but she was very lethargic and going in and out of sleep during history HISTORY OF PRESENT ILLNESS: 66F w/ hx of endometrial cancer w/ mets to lungs on tamoxifen, asthma, diastolic CHF, IDDM, DVT, HTN, HLD, hypothyroidism, s/p L eye cataract surgery several days ago presenting with abdominal pain. Pt reports 2 days LLQ abdominal pain. She endorses severe nausea, constipation, and no BM for past 3 days. Pt reports that she normally has 2 BMs per day. She states that her appetite is still ok. She also endorses worsening SOB and cough. She denies fever, chills, chest pain, diarrhea, or dysuria. ER course was notable for: (1) troponin of 6.7 (2) creatinine of 1.5 (3) lactic acid of 3.1 Recent Travel: none PAST MEDICAL HISTORY: as stated above PAST SURGICAL HISTORY: vascular bypass to [facility] 8 years ago hysterectomy 2009 hernia repair cholecystectomy Social History: Smoking: none Alcohol: none Drugs: none Family History: Allergies Penicillins Allergy (Unknown, Verified 12/14/16 22:41) Hives HOME MEDICATIONS: Home Medications Medication Instructions Recorded Albuterol Sulfate Inhaler - 2 inh PO Q6H 11/21/16 [Ventolin HFA Inhaler -] Clotrimazole [Mycelex -] 10 mg PO 5XD 11/21/16 Furosemide [Lasix] 40 mg PO DAILY 11/21/16 Insulin (Novolog) [Novolog Flexpen See Protocol SQ TID 11/21/16 -] Insulin Glargine,Hum.rec.anlog 40 units SQ BID 11/21/16 [Lantus Solostar PEN -] Levothyroxine [Synthroid -] 100 mcg PO DAILY 11/21/16 Losartan Potassium 50 mg PO BID 11/21/16 Megestrol Acetate 80 mg PO BID 11/21/16 Montelukast Na [Singulair -] 1 tab HS 11/21/16 Ondansetron HCl [Zofran] 4 mg PO BID 11/21/16 Ranitidine HCl [Zantac] 300 mg PO HS 11/21/16 Tamoxifen Citrate 20 mg PO BID 11/21/16 Alprazolam [Xanax] 0.5 mg PO TID PRN 11/23/16 Oxycodone HCl [Roxicodone] 15 mg PO TID PRN 11/23/16 Acetaminophen [Tylenol .Regular 650 mg PO Q6H PRN #0 tablet 11/27/16 Strength -] Albuterol Sulfate 0.5% [Ventolin 1 amp NEB QIDR amp 11/27/16 0.5% Nebulizing Soln. -] Aspirin [ASA -] 81 mg PO DAILY tab.chew 11/27/16 Atorvastatin Ca [Lipitor] 10 mg PO HS tablet 11/27/16 Budesonide/Formeterol Fumarate 2 puff IH BID inhaler 11/27/16 [SYMBICORT 160/4.5mcg -] Cholecalciferol (Vitamin D3) 1,000 unit PO Q7D tab 11/27/16 [Vitamin D -] Enoxaparin [Lovenox -] 120 mg SQ DAILY #30 dis.syr 11/27/16 Nystatin Powder 1 applic TP BID #0 bottle 11/27/16 Polyvinyl Alcohol [Artificial 1 drop OU QID PRN #1 bottle 11/27/16 Tears] Tiotropium [place] [Spiriva] 1 puff IH DAILY #1 inh 11/27/16 Prednisone [Deltasone -] 20 mg PO HS 12/10/16 Prednisone [Prednisone 50 MG 50 mg PO DAILY 12/10/16 TABLETS] REVIEW OF SYSTEMS GENERAL: No fever, chills, night sweats, or weakness. HEAD, EYES, EARS, NOSE AND THROAT: + change in vision, no ear pain, or sore throat CARDIOVASCULAR: No chest pain or palpitations RESPIRATORY: + cough, + wheezing, no hemoptysis. GASTROINTESTINAL: + nausea, no vomiting, no diarrhea, + constipation, no blood in the stool. GENITOURINARY: No dysuria, frequency, or urgency MUSCULOSKELETAL: No joint or muscle swelling or pain. SKIN: No rashes or pruritis ENDOCRINE: No increased thirst. No abnormal weight change NEUROLOGIC: No headache, dizziness, loss of consciousness, or change in strength /sensation. PHYSICAL EXAMINATION Vital Signs - 24 hr 12/15/16 02:24 Pulse Rate [ 116 H Apical] Respiratory 19 Rate Blood Pressure 155/89 [Right Arm] O2 Sat by Pulse 99 Oximetry (%) GENERAL: elderly female sleeping in bed in distress HEAD: Normal with no signs of trauma. alvarado facies EYES: Pupils equal, round and reactive to light, extraocular movements intact, sclera anicteric, conjunctiva clear. No lid lag. EARS, NOSE, THROAT: Ears normal, nares patent, oropharynx clear without exudates. Moist mucous membranes. + hirsutism NECK: Normal range of motion, supple without lymphadenopathy, JVD, or masses. LUNGS: wheezing diffusely, rhonchi HEART: tachycardic, normal S1 and S2 without murmur, rub or gallop. ABDOMEN: distended, abnormal masses, diffusely tender, lower quadrant ecchymosis , no rebound tenderness, no guarding, + central adiposity UPPER EXTREMITIES: 2+ pulses, warm, well-perfused. No cyanosis. No clubbing. No peripheral edema. LOWER EXTREMITIES: 2+ b/l LE pitting edema. right foot has amputations of 3rd, 4th, and 5th toes. longitudinal healed scar along medial left LE NEUROLOGICAL: Cranial nerves II-XII intact. language is normal SKIN: Warm, dry, normal turgor, no rashes or lesions noted, normal capillary refill. Laboratory Results - last 24 hr 12/15/16 12/15/16 12/15/16 00:27 00:27 00:27 WBC 19.2 H RBC 4.79 Hgb 12.6 Hct 38.8 MCV 81.1 MCH 26.2 MCHC 32.3 RDW 17.4 H Plt Count 252 MPV 8.0 D Total Counted 100 Neutrophils % Y Neutrophils % (Manual) 75 Band Neuts % (Manual) 2 Lymphocytes % Y Lymphocytes % (Manual) 18 D Monocytes % (Manual) 5 INR 0.95 PTT (Actin FS) 28.2 VBG pH POC VBG pCO2 POC VBG pO2 Mixed VBG HCO3 Sodium Potassium Chloride Carbon Dioxide Anion Gap BUN Creatinine Creat Clearance w eGFR Random Glucose Lactic Acid Calcium Total Bilirubin AST ALT Alkaline Phosphatase Creatine Kinase Creatine Kinase Index CK-MB (CK-2) Troponin I Total Protein Albumin Urine Color Lt. yellow Urine Appearance Clear Urine pH 5.5 Urine Protein 1+ H Urine Glucose (UA) Negative Urine Ketones Trace H Urine Blood Negative Urine Nitrite Negative Urine Bilirubin 1+ H Urine Urobilinogen 0.2 Ur Leukocyte Esterase Negative Urine RBC 1 Urine WBC 1 Ur Epithelial Cells Rare Urine Bacteria Rare Hyaline Casts 91 Urine Mucus Many Blood Type Antibody Screen 12/15/16 12/15/16 12/15/16 00:27 00:27 00:27 WBC RBC Hgb Hct MCV MCH MCHC RDW Plt Count MPV Total Counted Neutrophils % Neutrophils % (Manual) Band Neuts % (Manual) Lymphocytes % Lymphocytes % (Manual) Monocytes % (Manual) INR PTT (Actin FS) VBG pH POC VBG pCO2 POC VBG pO2 Mixed VBG HCO3 Sodium 140 Potassium 4.4 Chloride 96 L Carbon Dioxide 33 H Anion Gap 11 BUN 36 H D Creatinine 1.5 H D Creat Clearance w eGFR 34.85 Random Glucose 54 L Lactic Acid 3.1 H* Calcium 8.8 Total Bilirubin 0.5 D AST 53 H D ALT 47 D Alkaline Phosphatase 98 Creatine Kinase 178 Creatine Kinase Index 7.1 H* CK-MB (CK-2) 12.648 H Troponin I 6.77 H* Total Protein 6.4 Albumin 3.1 L Urine Color Urine Appearance Urine pH Urine Protein Urine Glucose (UA) Urine Ketones Urine Blood Urine Nitrite Urine Bilirubin Urine Urobilinogen Ur Leukocyte Esterase Urine RBC Urine WBC Ur Epithelial Cells Urine Bacteria Hyaline Casts Urine Mucus Blood Type O POSITIVE Antibody Screen Negative 12/15/16 12/15/16 12/15/16 00:51 04:01 04:01 WBC RBC Hgb Hct MCV MCH MCHC RDW Plt Count MPV Total Counted Neutrophils % Neutrophils % (Manual) Band Neuts % (Manual) Lymphocytes % Lymphocytes % (Manual) Monocytes % (Manual) INR PTT (Actin FS) VBG pH 7.35 POC VBG pCO2 61.4 H* POC VBG pO2 34.1 D Mixed VBG HCO3 33.0 H Sodium Potassium Chloride Carbon Dioxide Anion Gap BUN Creatinine Creat Clearance w eGFR Random Glucose Lactic Acid 1.6 Calcium Total Bilirubin AST ALT Alkaline Phosphatase Creatine Kinase 170 Creatine Kinase Index CK-MB (CK-2) Troponin I 5.43 H* Total Protein Albumin Urine Color Urine Appearance Urine pH Urine Protein Urine Glucose (UA) Urine Ketones Urine Blood Urine Nitrite Urine Bilirubin Urine Urobilinogen Ur Leukocyte Esterase Urine RBC Urine WBC Ur Epithelial Cells Urine Bacteria Hyaline Casts Urine Mucus Blood Type Antibody Screen ASSESSMENT/PLAN: 66F w/ hx of endometrial cancer w/ mets to lungs on tamoxifen, asthma, diastolic CHF, IDDM, DVT, HTN, HLD, hypothyroidism, s/p L eye cataract surgery several days ago presenting with abdominal pain, found to have NSTEMI #NSTEMI -troponin I of 6.77, no signs of ischemia on EKG -heparin drip 1000U/hr -monitoring coordinator -aspirin 325 and atorvastatin 80 given -repeat troponin of 5.43, continue to trend -repeat EKG -Dr. Moise on board #abdominal pain -2/2 obstruction vs. diverticulitis vs. atypical presentation of ACS -f/u XR abdomen -consider CT abdomen/pelvis -lactic acid of 3.1, then 1.6 -pain control: continue home oxycodone 15mg q8h -zantac 300 PO HS -zofran 4mg q6h PRN -NPO until obstruction is ruled out #SARAH -creatinine of 1.5 w/ BUNof 36 likely pre-renal -pt appears hypervolemic w/ significant peripheral edema -lasix 40 IV #SOB -2/2 lung mets vs. CHF exacerbation vs. asthma exacerbation -2L O2 via NC -continue budesonide/formeterol BID, montelukast 10mg HS, ventolin, albuterol PRN, prednisone 20 -f/u CXR #uterine cancer -continue home tamoxifen 20 BID -palliative care team consulted, pt has poor prognosis -get in contact with pt's oncologist #leukocytosis -likely due to prednisone -f/u blood cx, urine cx #IDDM -20U of levemir BID -SSI -resume home dose of 40U levemir BID once pt is started on diet #HLD -given one dose of atorvastatin 80mg -f/u lipid profile #Hypothyroid -continued home dose of levothyroxine #asthma -2L O2 via NC -continue budesonide/formeterol BID, montelukast 10mg HS, ventolin, albuterol PRN #HTN #diastolic CHF #advanced directives -spoke with pt about her advanced directives. Pt states that she hasn't discussed it with her yet but will now #FEN/ppx -zantac 300 PO HS -SCDs Visit type - Emergency Visit Emergency Visit: Yes ED Registration Date: 12/15/16 Care time: The patient presented to the Emergency Department on the above date and was hospitalized for further evaluation of their emergent condition. - New Patient This patient is new to me today: Yes Date on this admission: 12/15/16 - Critical Care Critical Care patient: No
[2016-12-15 05:14] LABS: TROPONIN I 5.43 ng/ml (0.00-0.05)
[2016-12-15] MEDS ORDERED: ONDANSETRON 4 MG/2 ML VIAL IVPB PRN (05:32)
[2016-12-15] MEDS: ALBUTEROL SO4 0.5 % INH SOLN 2.5 MG/0.5 ML VIAL.NEB. NEB SCH ×4 (06:12→23:45)
[2016-12-15] MEDS ORDERED: FUROSEMIDE 40 MG/4 ML INJECTABLE VIAL IVPUSH ONE (06:43)
[2016-12-15] MEDS: INSULIN SLIDING SCALE (NOVOLOG) 1 VIAL SQ SCH ×4 (06:59→23:35)
[2016-12-15] MEDS ORDERED: LEVOTHYROXINE NA 100 MCG TABLET (FP) PO SCH (07:00)
[2016-12-15] MEDS ORDERED: INSULIN DETEMIR 100 UNITS/ML MDV SQ SCH (07:00)
[2016-12-15] MEDS ORDERED: FUROSEMIDE 40 MG/4 ML INJECTABLE VIAL ONE (07:05)
--- NOTE | 2016-12-15 09:09 | HOSP ---
Subjective - Review of Symptoms Events since last encounter: Patient is having hemoptysis with hx of lung cancer and severe copd. Temperature 97.7 F 12/15/16 07:50 Pulse Rate 107 H 12/15/16 07:50 Respiratory Rate 20 12/15/16 07:50 Blood Pressure 108/60 12/15/16 07:50 O2 Sat by Pulse Oximetry (%) 100 12/15/16 07:50 GENERAL: has cushinoid appearance, having hemoptysis in ED. HEAD: Normal with no signs of trauma. alvarado facies EYES: Pupils equal, round and reactive to light, extraocular movements intact, sclera anicteric, conjunctiva clear. EARS, NOSE, THROAT: Ears normal, oropharynx clear without exudates. Moist mucous membranes. POsitive for NG-tube NECK: Normal range of motion, supple ,no JVD. LUNGS: Decreased BS BL , positive for wheezing. HEART: tachycardic, S1 S2 positive without murmur. no rub or gallop. ABDOMEN: soft, positive foe NG-tube, with diffuse tenderness, no rebound tenderness, no guarding, + central adiposity Lower EXTREMITIES: 2+ b/l LE pitting edema. right foot has amputations of 3rd, 4th, and 5th toes. Upper Extremeties: Positive for pulses, no erythema. NEUROLOGICAL: Cranial nerves II-XII intact. language is normal SKIN: Warm, dry, normal turgor, no rashes or lesions noted, normal capillary refill. CBCD WBC 19.2 K/mm3 (4.0-10.0) H 12/15/16 00:27 RBC 4.79 M/mm3 (3.60-5.2) 12/15/16 00:27 Hgb 12.6 GM/dL (10.7-15.3) 12/15/16 00:27 Hct 38.8 % (32.4-45.2) 12/15/16 00:27 MCV 81.1 fl (80-96) 12/15/16 00:27 MCHC 32.3 g/dl (32.0-36.0) 12/15/16 00:27 RDW 17.4 % (11.6-15.6) H 12/15/16 00:27 Plt Count 252 K/MM3 (134-434) 12/15/16 00:27 MPV 8.0 fl (7.5-11.1) D 12/15/16 00:27 CMP Sodium 140 mmol/L (136-145) 12/15/16 00:27 Potassium 4.4 mmol/L (3.5-5.1) 12/15/16 00:27 Chloride 96 mmol/L (98-107) L 12/15/16 00:27 Carbon Dioxide 33 mmol/L (21-32) H 12/15/16 00:27 Anion Gap 11 (8-16) 12/15/16 00:27 BUN 36 mg/dL (7-18) H D 12/15/16 00:27 Creatinine 1.5 mg/dL (0.55-1.02) H D 12/15/16 00:27 Creat Clearance w eGFR 34.85 (>60) 12/15/16 00:27 Random Glucose 54 mg/dL (74-106) L 12/15/16 00:27 Calcium 8.8 mg/dL (8.5-10.1) 12/15/16 00:27 Total Bilirubin 0.5 mg/dL (0.2-1.0) D 12/15/16 00:27 AST 53 U/L (15-37) H D 12/15/16 00:27 ALT 47 U/L (12-78) D 12/15/16 00:27 Alkaline Phosphatase 98 U/L (45-117) 12/15/16 00:27 Total Protein 6.4 g/dl (6.4-8.2) 12/15/16 00:27 Albumin 3.1 g/dl (3.4-5.0) L 12/15/16 00:27 CARDIAC ENZYMES Creatine Kinase 170 IU/L (26-192) 12/15/16 04:01 Troponin I 5.43 ng/ml (0.00-0.05) H* 12/15/16 04:01 Current Medications Generic Name Dose Route Start Last Admin Trade Name Freq PRN Reason Stop Dose Admin Aclidinium [place] 1 puff 12/15/16 10:00 Tudorza - IH BID RAFA Albuterol Sulfate 1 amp 12/15/16 06:00 12/15/16 06:12 Ventolin 0.5% - NEB Not Given QIDR RAFA Albuterol Sulfate 2 puff 12/15/16 03:43 Ventolin Hfa Inhaler - IH Q6H PRN WHEEZING Aspirin 81 mg 12/15/16 10:00 Asa - PO DAILY [facility] Budesonide/Formoterol Fumarate 2 puff 12/15/16 10:00 Symbicort 160/4.5mcg - IH BID [facility] Heparin Sodium (Porcine) 25, 500 mls @ 20 mls/hr 12/15/16 01:45 12/15/16 02:22 000 unit/ Sodium Chloride IV 20 mls/hr TITR [facility] Administration Protocol 1,000 UNIT/HR Insulin Aspart 1 vial 12/15/16 06:00 12/15/16 06:59 Novolog Vial Sliding Scale - SQ Not Given Q6HPO [facility] Protocol Insulin Detemir 20 units 12/15/16 07:00 Levemir Vial SQ BIDI [facility] Levothyroxine Sodium 100 mcg 12/15/16 07:00 12/15/16 07:02 Synthroid - PO Not Given AM [facility] Montelukast Sodium 10 mg 12/15/16 22:00 Singulair - PO HS [facility] Ondansetron HCl 4 mg 12/15/16 05:32 Zofran Injection IVPB Q6H PRN NAUSEA Oxycodone HCl 15 mg 12/15/16 04:12 Roxicodone - PO Q8H PRN PAIN Prednisone 20 mg 12/15/16 22:00 Deltasone - PO HS [facility] Ranitidine HCl 300 mg 12/15/16 22:00 Zantac - PO HS [facility] Tamoxifen Citrate 20 mg 12/15/16 10:00 Tamoxifen Citrate PO BID [facility] Home Medications Medication Instructions Recorded Albuterol Sulfate Inhaler - 2 inh PO Q6H 11/21/16 [Ventolin HFA Inhaler -] Clotrimazole [Mycelex -] 10 mg PO 5XD 11/21/16 Furosemide [Lasix] 40 mg PO DAILY 11/21/16 Insulin (Novolog) [Novolog Flexpen See Protocol SQ TID 11/21/16 -] Insulin Glargine,Hum.rec.anlog 40 units SQ BID 11/21/16 [Lantus Solostar PEN -] Levothyroxine [Synthroid -] 100 mcg PO DAILY 11/21/16 Losartan Potassium 50 mg PO BID 11/21/16 Megestrol Acetate 80 mg PO BID 11/21/16 Montelukast Na [Singulair -] 1 tab HS 11/21/16 Ondansetron HCl [Zofran] 4 mg PO BID 11/21/16 Ranitidine HCl [Zantac] 300 mg PO HS 11/21/16 Tamoxifen Citrate 20 mg PO BID 11/21/16 Alprazolam [Xanax] 0.5 mg PO TID PRN 11/23/16 Oxycodone HCl [Roxicodone] 15 mg PO TID PRN 11/23/16 Acetaminophen [Tylenol .Regular 650 mg PO Q6H PRN #0 tablet 11/27/16 Strength -] Albuterol Sulfate 0.5% [Ventolin 1 amp NEB QIDR amp 11/27/16 0.5% Nebulizing Soln. -] Aspirin [ASA -] 81 mg PO DAILY tab.chew 11/27/16 Atorvastatin Ca [Lipitor] 10 mg PO HS tablet 11/27/16 Budesonide/Formeterol Fumarate 2 puff IH BID inhaler 11/27/16 [SYMBICORT 160/4.5mcg -] Cholecalciferol (Vitamin D3) 1,000 unit PO Q7D tab 11/27/16 [Vitamin D -] Enoxaparin [Lovenox -] 120 mg SQ DAILY #30 dis.syr 11/27/16 Nystatin Powder 1 applic TP BID #0 bottle 11/27/16 Polyvinyl Alcohol [Artificial 1 drop OU QID PRN #1 bottle 11/27/16 Tears] Tiotropium [place] [Spiriva] 1 puff IH DAILY #1 inh 11/27/16 Prednisone [Deltasone -] 20 mg PO HS 12/10/16 Prednisone [Prednisone 50 MG 50 mg PO DAILY 12/10/16 TABLETS] Laboratory Tests 12/15/16 12/15/16 12/15/16 00:27 00:27 04:01 Anion Gap 11 Creatinine 1.5 H D Lactic Acid 3.1 H* 1.6 Creatine Kinase Index 7.1 H* CK-MB (CK-2) 12.648 H Troponin I 6.77 H* 12/15/16 04:01 Anion Gap Creatinine Lactic Acid Creatine Kinase Index CK-MB (CK-2) Troponin I 5.43 H* A/P: Patient is a 66F w/ hx of endometrial cancer w/ mets to lungs on tamoxifen, asthma, diastolic CHF, IDDM, DVT, HTN, HLD, hypothyroidism, s/p L eye cataract surgery several days ago presenting with abdominal pain, found to have NSTEMI #NSTEMI :troponin I of 6.77 is trending down, discussed with forensic identification specialist , patient is having hemoptysis , will stop Heparin for now , patient has Lung Ca with Severe COPD, in ICU, discussed with accepted to ICU , continue equipment monitor phototypesetting ,continue Aspirin and atorvastatin 80 given;repeat EKG , cardio. consult appreciated #abdominal pain improving , surgical consult appreciated ,lactic acid of 3.1--> 1.6. #SARAH creatinine of 1.5 w/ BUNof 36 likely pre-renal;lasix 40 IV #hX OF sEVERE COPD, AND lUNG CA #uterine cancer continue home tamoxifen 20 BID ;palliative care team consulted, pt has poor prognosis #Acute leukocytosis likely due to prednisone; f/u blood cx, urine cx #IDDM , will cut further to 10 of levemir BID since NPO and having episodes of Low blood sugar; SSI #HLD given one dose of atorvastatin 80mg;f/u lipid profile #Hypothyroid continued home dose of levothyroxine #asthma 2L O2 via NC; continue budesonide/formeterol BID, montelukast 10mg HS, ventolin, albuterol PRN DVt px: Lovenox in ICU Physical Examination Vital Signs: Vital Signs Temperature 97.7 F 12/15/16 07:50 Pulse Rate 107 H 12/15/16 07:50 Respiratory Rate 20 12/15/16 07:50 Blood Pressure 108/60 12/15/16 07:50 O2 Sat by Pulse Oximetry (%) 100 12/15/16 07:50
[2016-12-15] MEDS ORDERED: HEPARIN NA (PORCINE) 5,000 UNITS/ML 1ML VIAL IVPUSH PRN ×2 (09:13)
[2016-12-15] MEDS ORDERED: HEPARIN INFUSION - 500 ML IVPB SCH (09:15)
[2016-12-15] MEDS ORDERED: BUDESONIDE/FORMETEROL FUMARATE 160/4.5 mcg INHALER IH SCH (10:00)
[2016-12-15] MEDS ORDERED: ASPIRIN 81 MG CHEWABLE TABLETS PO SCH (10:00)
[2016-12-15] MEDS ORDERED: TAMOXIFEN CITRATE 10 MG TABLET PO SCH (10:00)
[2016-12-15] MEDS ORDERED: ACLIDINIUM BROMIDE 400 MCG/INH AERO.POWD IH SCH (10:00)
--- NOTE | 2016-12-15 10:00 | CONSULT ---
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 No: Renal Failure ...LMP: 11/21/13 Infectious Disease: Yes: Other (hand infection in 03/2014 with group a strep bacteremia, group b strep bacteremia 08/2014) Psych: Yes: Anxiety, Depression Musculoskeletal: Yes: Other (chronic pain) Endocrine: Yes: Diabetes Mellitus Additional Medical History: neuropathy - Past Surgical History Past Surgical History: Yes: Amputation (right third and fourth toes), Bypass ( left leg), Cholecystectomy, Hernia Repair, Hysterectomy - Alcohol/Substance Use Hx Alcohol Use: No History of Substance Use: reports: None - Smoking History Smoking history: Never smoked Have you smoked in the past 12 months: No Aproximately how many cigarettes per day: 0 - Social History Usual Living Arrangement: With Spouse ADL: Family Assistance History of Recent Travel: No Home Medications - Allergies Allergies/Adverse Reactions: Allergies Allergy/AdvReac Type Severity Reaction Status Date / Time Penicillins Allergy Unknown Hives Verified 12/14/16 22:41 - Home Medications Home Medications: Ambulatory Orders Albuterol Sulfate Inhaler - [Ventolin HFA Inhaler -] 2 inh PO Q6H 11/21/16 Clotrimazole [Mycelex -] 10 mg PO 5XD 11/21/16 Furosemide [Lasix] 40 mg PO DAILY 11/21/16 Insulin (Novolog) [Novolog Flexpen -] See Protocol SQ TID 11/21/16 Insulin Glargine,Hum.rec.anlog [Lantus Solostar PEN -] 40 units SQ BID 11/21/16 Levothyroxine [Synthroid -] 100 mcg PO DAILY 11/21/16 Losartan Potassium 50 mg PO BID 11/21/16 Megestrol Acetate 80 mg PO BID 11/21/16 Montelukast Na [Singulair -] 1 tab HS 11/21/16 Ondansetron HCl [Zofran] 4 mg PO BID 11/21/16 Ranitidine HCl [Zantac] 300 mg PO HS 11/21/16 Tamoxifen Citrate 20 mg PO BID 11/21/16 Alprazolam [Xanax] 0.5 mg PO TID PRN 11/23/16 Oxycodone HCl [Roxicodone] 15 mg PO TID PRN 11/23/16 Acetaminophen [Tylenol .Regular Strength -] 650 mg PO Q6H PRN #0 tablet Albuterol Sulfate 0.5% [Ventolin 0.5% Nebulizing Soln. -] 1 amp NEB QIDR amp Aspirin [ASA -] 81 mg PO DAILY tab.chew 11/27/16 Atorvastatin Ca [Lipitor] 10 mg PO HS tablet 11/27/16 Budesonide/Formeterol Fumarate [SYMBICORT 160/4.5mcg -] 2 puff IH BID inhaler 11/27/16 Cholecalciferol (Vitamin D3) [Vitamin D -] 1,000 unit PO Q7D tab 11/27/16 Enoxaparin [Lovenox -] 120 mg SQ DAILY #30 dis.syr 11/27/16 Nystatin Powder 1 applic TP BID #0 bottle 11/27/16 Polyvinyl Alcohol [Artificial Tears] 1 drop OU QID PRN #1 bottle 11/27/16 Tiotropium [place] [Spiriva] 1 puff IH DAILY #1 inh 11/27/16 Prednisone [Deltasone -] 20 mg PO HS 12/10/16 Prednisone [Prednisone 50 MG TABLETS] 50 mg PO DAILY 12/10/16 Family Disease History - Family Disease History Family Disease History: Diabetes: Mother (CVA), Heart Disease: Mother, Other: Mother Review of Systems Unable to obtain ROS, reason: Poor historian Physical Exam Vital Signs: Vital Signs Temperature 97.7 F 12/15/16 07:50 Pulse Rate 107 H 12/15/16 07:50 Respiratory Rate 20 12/15/16 07:50 Blood Pressure 108/60 09/02/17 07:50 O2 Sat by Pulse Oximetry (%) 100 12/15/16 07:50 Neck: Yes: Supple Cardiovascular: Yes: WNL Respiratory: Yes: Diminished Gastrointestinal: Yes: Soft, Abdomen, Obese. No: Tenderness, Tenderness, Rebound Labs: CBC, BMP 12/15/16 00:27 12/15/16 00:27 Imaging - Results X-ray: Report Reviewed, Image Reviewed Cat Scan: Pending Problem List - Problems (1) Abdominal pain Code(s): R10.9 - UNSPECIFIED ABDOMINAL PAIN Qualifiers: Abdominal location: unspecified location Qualified Code(s): R10.9 - Unspecified abdominal pain (2) NSTEMI (non-ST elevated myocardial infarction) Code(s): I21.4 - NON-ST ELEVATION (NSTEMI) MYOCARDIAL INFARCTION (3) Fecal impaction of colon Code(s): K56.41 - FECAL IMPACTION Assessment/Plan 66 female with significant medical history with fecal impaction/constipation No abdominal pain on exam NPO NG tube CT A/P pending
--- NOTE | 2016-12-15 11:30 | EKG ---
Test Reason : Blood Pressure : / mmHG Vent. Rate : 110 BPM Atrial Rate : 110 BPM P-R Int : 126 ms QRS Dur : 118 ms QT Int : 352 ms P-R-T Axes : 059 -58 084 degrees QTc Int : 476 ms SINUS TACHYCARDIA WITH PREMATURE ATRIAL COMPLEXES ATRIAL ABNORMALITY INTERVENTRICULAR CONDUCTION DELAY LEFT ANTERIOR FASCICULAR BLOCK LEFT VENTRICULAR HYPERTROPHY WITH QRS WIDENING NONSPECIFIC T WAVE ABNORMALITY ABNORMAL ECG WHEN COMPARED WITH ECG OF 15-DEC-2016 00:57, PREMATURE ATRIAL COMPLEXES ARE NOW PRESENT Confirmed by GRIS GARCIA MD ([id number]) on 12/15/2016 11:29:28 AM Referred By: Confirmed By:GRIS GARCIA MD
--- NOTE | 2016-12-15 11:32 | EKG ---
Test Reason : Blood Pressure : / mmHG Vent. Rate : 112 BPM Atrial Rate : 112 BPM P-R Int : 130 ms QRS Dur : 118 ms QT Int : 346 ms P-R-T Axes : 058 -63 072 degrees QTc Int : 472 ms SINUS TACHYCARDIA RIGHT BUNDLE BRANCH BLOCK LEFT ANTERIOR FASCICULAR BLOCK COMPARED TO ABSENCE OF APCs. CLINICAL CORRELATION IS RECOMMENDED Confirmed by GRIS GARCIA MD ([id number]) on 12/15/2016 11:32:50 AM Referred By: Confirmed By:GRIS GARCIA MD
[2016-12-15] MEDS ORDERED: DEXTROSE 50%-WATER 50 ML DISP.SYRIN IVPUSH ONE (11:35)
[2016-12-15] MEDS ORDERED: DEXTROSE 50%-WATER 50 ML DISP.SYRIN ONE (11:36)
--- NOTE | 2016-12-15 11:46 | CON.CARD ---
Consult Consult Specialty:: Cardiology Referred by:: Hospitalist Reason for Consultation:: Cardiac evaluation - History of Present Illness Chief Complaint: Abdominal pain and NSTEMI History of Present Illness: Patient is a 66 year old female of descent with underlying history of cervical and endometrial cancer with metastasis to the lung (received chemotherapy), in addition to hypertension, hypercholesterolemia, diastolic heart failure, deep vein thrombosis, insulin dependent diabetes mellitus and COPD. She complained of diffuse abdominal pain worse in lower quadrant associated with nausea. Her initial troponin level was 6.77 and then 5.43. She denies chest pain or palpitations, but family reports intermittent cough and shortness of breath. She denies fever or chills. She denies vomiting. She has been to [facility] for her cancer. She has not had any cardiac events in the past. Cardiology consultation was called for further evaluation. 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: Peripheral Neuropathy Cardio/Vascular: Yes: CAD, Deep Vein Thrombosis, HTN, Hyperlipdemia, Murmur, Other (PVD) Pulmonary: Yes: Asthma, COPD, Other (lung mets/some cavitary in appearance) Gastrointestinal: Yes: Gastritis Renal/: Yes: Cancer (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) ...LMP: 11/21/13 Infectious Disease: Yes: Other (hand infection in 03/2014 with group a strep bacteremia, group b strep bacteremia 08/2014) Psych: Yes: Anxiety, Depression Musculoskeletal: Yes: Other (chronic pain) Endocrine: Yes: Diabetes Mellitus Additional Medical History: neuropathy - Past Surgical History Past Surgical History: Yes: Amputation (right third and fourth toes), Bypass ( left leg), Cholecystectomy, Hernia Repair, Hysterectomy - Alcohol/Substance Use Hx Alcohol Use: No History of Substance Use: reports: None - Smoking History Smoking history: Never smoked Have you smoked in the past 12 months: No Aproximately how many cigarettes per day: 0 - Social History Usual Living Arrangement: With Spouse ADL: Family Assistance History of Recent Travel: No Home Medications - Allergies Allergies/Adverse Reactions: Allergies Allergy/AdvReac Type Severity Reaction Status Date / Time Penicillins Allergy Unknown Hives Verified 12/14/16 22:41 - Home Medications Home Medications: Ambulatory Orders Albuterol Sulfate Inhaler - [Ventolin HFA Inhaler -] 2 inh PO Q6H 11/21/16 Clotrimazole [Mycelex -] 10 mg PO 5XD 11/21/16 Furosemide [Lasix] 40 mg PO DAILY 11/21/16 Insulin (Novolog) [Novolog Flexpen -] See Protocol SQ TID 11/21/16 Insulin Glargine,Hum.rec.anlog [Lantus Solostar PEN -] 40 units SQ BID 11/21/16 Levothyroxine [Synthroid -] 100 mcg PO DAILY 11/21/16 Losartan Potassium 50 mg PO BID 11/21/16 Megestrol Acetate 80 mg PO BID 11/21/16 Montelukast Na [Singulair -] 1 tab HS 11/21/16 Ondansetron HCl [Zofran] 4 mg PO BID 11/21/16 Ranitidine HCl [Zantac] 300 mg PO HS 11/21/16 Tamoxifen Citrate 20 mg PO BID 11/21/16 Alprazolam [Xanax] 0.5 mg PO TID PRN 11/23/16 Oxycodone HCl [Roxicodone] 15 mg PO TID PRN 11/23/16 Acetaminophen [Tylenol .Regular Strength -] 650 mg PO Q6H PRN #0 tablet Albuterol Sulfate 0.5% [Ventolin 0.5% Nebulizing Soln. -] 1 amp NEB QIDR amp Aspirin [ASA -] 81 mg PO DAILY tab.chew 11/27/16 Atorvastatin Ca [Lipitor] 10 mg PO HS tablet 11/27/16 Budesonide/Formeterol Fumarate [SYMBICORT 160/4.5mcg -] 2 puff IH BID inhaler 11/27/16 Cholecalciferol (Vitamin D3) [Vitamin D -] 1,000 unit PO Q7D tab 11/27/16 Enoxaparin [Lovenox -] 120 mg SQ DAILY #30 dis.syr 11/27/16 Nystatin Powder 1 applic TP BID #0 bottle 11/27/16 Polyvinyl Alcohol [Artificial Tears] 1 drop OU QID PRN #1 bottle 11/27/16 Tiotropium Elmer [Spiriva] 1 puff IH DAILY #1 inh 11/27/16 Prednisone [Deltasone -] 20 mg PO HS 12/10/16 Prednisone [Prednisone 50 MG TABLETS] 50 mg PO DAILY 12/10/16 Family Disease History - Family Disease History Family Disease History: Diabetes: Mother (CVA), Heart Disease: Mother, Other: Mother Review of Systems Unable to obtain ROS, reason: Unable to obtain Vital Signs: Vital Signs Temperature 98.3 F 12/15/16 09:48 Pulse Rate 108 H 12/15/16 09:48 Respiratory Rate 18 12/15/16 09:48 Blood Pressure 113/70 12/15/16 09:48 O2 Sat by Pulse Oximetry (%) 100 12/15/16 07:50 Neck: Yes: Supple Respiratory: Yes: Diminished Gastrointestinal: Yes: Distention, Hypoactive Bowel Sounds Cardiovascular: Yes: Regular Rate and Rhythm, Tachycardia. No: Gallop JVD: No Carotid Bruit: No PMI: Non-Displaced Heart Sounds: Yes: S1, S2 Murmur: Yes: Systolic Murmur, Grade 1 Edema: Yes - Other Data Labs, Other Data: INR, PTT INR 0.95 (0.82-1.09) 12/15/16 00:27 Troponin, BNP 12/15/16 04:01 Troponin I 5.43 H* Laboratory Results - last 24 hr 12/15/16 12/15/16 12/15/16 00:27 00:27 00:27 WBC 19.2 H RBC 4.79 Hgb 12.6 Hct 38.8 MCV 81.1 MCH 26.2 MCHC 32.3 RDW 17.4 H Plt Count 252 MPV 8.0 D Total Counted 100 Neutrophils % Y Neutrophils % (Manual) 75 Band Neuts % (Manual) 2 Lymphocytes % Y Lymphocytes % (Manual) 18 D Monocytes % (Manual) 5 INR 0.95 PTT (Actin FS) 28.2 VBG pH POC VBG pCO2 POC VBG pO2 Mixed VBG HCO3 Sodium Potassium Chloride Carbon Dioxide Anion Gap BUN Creatinine Creat Clearance w eGFR POC Glucometer Random Glucose Lactic Acid Calcium Total Bilirubin AST ALT Alkaline Phosphatase Creatine Kinase Creatine Kinase Index CK-MB (CK-2) Troponin I Total Protein Albumin Urine Color Lt. yellow Urine Appearance Clear Urine pH 5.5 Ur Specific [place] 1.020 Urine Protein 1+ H Urine Glucose (UA) Negative Urine Ketones Trace H Urine Blood Negative Urine Nitrite Negative Urine Bilirubin 1+ H Urine Urobilinogen 0.2 Ur Leukocyte Esterase Negative Urine RBC 1 Urine WBC 1 Ur Epithelial Cells Rare Urine Bacteria Rare Hyaline Casts 91 Urine Mucus Many Blood Type Antibody Screen 12/15/16 12/15/16 12/15/16 00:27 00:27 00:27 WBC RBC Hgb Hct MCV MCH MCHC RDW Plt Count MPV Total Counted Neutrophils % Neutrophils % (Manual) Band Neuts % (Manual) Lymphocytes % Lymphocytes % (Manual) Monocytes % (Manual) INR PTT (Actin FS) VBG pH POC VBG pCO2 POC VBG pO2 Mixed VBG HCO3 Sodium 140 Potassium 4.4 Chloride 96 L Carbon Dioxide 33 H Anion Gap 11 BUN 36 H D Creatinine 1.5 H D Creat Clearance w eGFR 34.85 POC Glucometer Random Glucose 54 L Lactic Acid 3.1 H* Calcium 8.8 Total Bilirubin 0.5 D AST 53 H D ALT 47 D Alkaline Phosphatase 98 Creatine Kinase 178 Creatine Kinase Index 7.1 H* CK-MB (CK-2) 12.648 H Troponin I 6.77 H* Total Protein 6.4 Albumin 3.1 L Urine Color Urine Appearance Urine pH Ur Specific [place] Urine Protein Urine Glucose (UA) Urine Ketones Urine Blood Urine Nitrite Urine Bilirubin Urine Urobilinogen Ur Leukocyte Esterase Urine RBC Urine WBC Ur Epithelial Cells Urine Bacteria Hyaline Casts Urine Mucus Blood Type O POSITIVE Antibody Screen Negative 12/15/16 12/15/16 12/15/16 00:51 04:01 04:01 WBC RBC Hgb Hct MCV MCH MCHC RDW Plt Count MPV Total Counted Neutrophils % Neutrophils % (Manual) Band Neuts % (Manual) Lymphocytes % Lymphocytes % (Manual) Monocytes % (Manual) INR PTT (Actin FS) VBG pH 7.35 POC VBG pCO2 61.4 H* POC VBG pO2 34.1 D Mixed VBG HCO3 33.0 H Sodium Potassium Chloride Carbon Dioxide Anion Gap BUN Creatinine Creat Clearance w eGFR POC Glucometer Random Glucose Lactic Acid 1.6 Calcium Total Bilirubin AST ALT Alkaline Phosphatase Creatine Kinase 170 Creatine Kinase Index CK-MB (CK-2) Troponin I 5.43 H* Total Protein Albumin Urine Color Urine Appearance Urine pH Ur Specific [place] Urine Protein Urine Glucose (UA) Urine Ketones Urine Blood Urine Nitrite Urine Bilirubin Urine Urobilinogen Ur Leukocyte Esterase Urine RBC Urine WBC Ur Epithelial Cells Urine Bacteria Hyaline Casts Urine Mucus Blood Type Antibody Screen Sinus tachycardia with RBBB Echo: Pending Imaging - Results Chest X-ray: Report Reviewed Cat Scan: Pending (Abdominal CT) EKG: Report Reviewed Problem List - Problems (1) Abdominal pain Code(s): R10.9 - UNSPECIFIED ABDOMINAL PAIN Qualifiers: Abdominal location: unspecified location Qualified Code(s): R10.9 - Unspecified abdominal pain (2) NSTEMI (non-ST elevated myocardial infarction) Code(s): I21.4 - NON-ST ELEVATION (NSTEMI) MYOCARDIAL INFARCTION (3) Cervical carcinoma Code(s): C53.9 - MALIGNANT NEOPLASM OF CERVIX UTERI, UNSPECIFIED (4) Diabetes Code(s): E11.9 - TYPE 2 DIABETES MELLITUS WITHOUT COMPLICATIONS Qualifiers: Diabetes mellitus type: type 2 Diabetes mellitus complication status: without complication (5) Endometrial cancer Code(s): C54.1 - MALIGNANT NEOPLASM OF ENDOMETRIUM (6) Hyperlipidemia Code(s): E78.5 - HYPERLIPIDEMIA, UNSPECIFIED Qualifiers: Hyperlipidemia type: unspecified Qualified Code(s): E78.5 - Hyperlipidemia, unspecified (7) Hypertension Code(s): I10 - ESSENTIAL (PRIMARY) HYPERTENSION Qualifiers: Hypertension type: essential hypertension Qualified Code(s): I10 - Essential (primary) hypertension (8) Hypothyroidism Code(s): E03.9 - HYPOTHYROIDISM, UNSPECIFIED Qualifiers: Hypothyroidism type: unspecified Qualified Code(s): E03.9 - Hypothyroidism, unspecified (9) Metastasis to lung Code(s): C78.00 - SECONDARY MALIGNANT NEOPLASM OF UNSPECIFIED LUNG (10) Obesity Code(s): E66.9 - OBESITY, UNSPECIFIED Assessment/Plan 1. Elevated troponin c/w NSTEMI, underlying CAD 2. Endometrial cancer metastatic to lung 3. Hypertension 4. IDDM 5. Abdominal pain, etiology to be determined, probable impacted stool 6. COPD 7. RBBB PLAN: 1. Trend troponin 2. Continue Heparin drip in the interim 3. ASA if not contraindicated 4. Transthoracic echocardiography to assess LV/RV and valvular function 5. Abdominal CT pending 6. In view of multiple co-morbidities, would treat conservatively and optimize medical therapy Further plans are to follow Noah Moise MD
--- NOTE | 2016-12-15 11:58 | EKG ---
Test Reason : Blood Pressure : / mmHG Vent. Rate : 110 BPM Atrial Rate : 110 BPM P-R Int : 114 ms QRS Dur : 122 ms QT Int : 366 ms P-R-T Axes : 057 -71 067 degrees QTc Int : 495 ms SINUS TACHYCARDIA WITH PREMATURE SUPRAVENTRICULAR COMPLEXES RIGHT BUNDLE BRANCH BLOCK LEFT ANTERIOR FASCICULAR BLOCK BIFASCICULAR BLOCK ABNORMAL ECG WHEN COMPARED WITH ECG OF 15-DEC-2016 05:45, NO SIGNIFICANT CHANGE WAS FOUND Confirmed by GRIS GARCIA MD ([id number]) on 12/15/2016 11:57:59 AM Referred By: Inge MIRANDA Confirmed By:GRIS GARCIA MD
[2016-12-15] MEDS ORDERED: ARTIFICIAL TEARS (POLYVINYL ALCOHOL 1.4%) OPTH DROPS OU PRN (12:53)
[2016-12-15 13:19] LABS: TROPONIN I 4.31 ng/ml (0.00-0.05)
[2016-12-15] MEDS ORDERED: methylPREDNISolone NA SUCC 40 MG/1 ML VIAL ONE (13:43)
[2016-12-15] MEDS ORDERED: FAMOTIDINE 20 MG/50 ML IVPB 50 ML IVPB ONE (13:44)
[2016-12-15] MEDS: methylPREDNISolone NA SUCC 40 MG/1 ML VIAL IVPB SCH ×2 (13:54→17:11)
[2016-12-15] MEDS: FAMOTIDINE 20 MG/50 ML IVPB 50 ML IVPB SCH ×2 (13:54→21:13)
[2016-12-15] MEDS ORDERED: ALBUTEROL SO4 0.083% IH SOL 2.5 MG/3 ML VIAL.NEB. NEB ONE ×2 (14:01→22:57)
[2016-12-15] MEDS ORDERED: morphine CARPU-JECT 2 MG/1 ML DISP.SYRIN ONE (14:09)
[2016-12-15] MEDS: morphine CARPU-JECT 2 MG/1 ML DISP.SYRIN IVPUSH PRN ×3 (14:10→23:06)
[2016-12-15 15:18] VITALS: BMI 38.1
[2016-12-15] MEDS: INSULIN DETEMIR 100 UNITS/ML MDV SQ SCH (17:08)
[2016-12-15] MEDS ORDERED: PATIENT'S OWN MEDICATION (NON-FORMULARY) (Alprazolam [Xanax] 0.5 MG) PO PRN (17:22)
[2016-12-15] MEDS: ALPRAZolam 0.25 MG TABLET PO PRN (17:57)
--- NOTE | 2016-12-15 20:32 | CONSULT ---
Consult Consult Specialty:: PULM / CRITICAL CARE Referred by:: Dr Hart Reason for Consultation:: NSTEMI - History of Present Illness Chief Complaint: abdominal pain History of Present Illness: Very briefly, 66 y/o woman with metastatic endometrial cancer, asthma, HFNEF, IDDM, prior DVT (on anticoagulation), HLD, hypothyroid presents to the ED with abdominal pain and SOB. Abdominal imaging concerning for possible obstruction/ incarcerated hernia, but currently having BMs, so not completely obstructed, surgery evaluated and recommended conservative management. More importantly, found to have small NSTEMI likely demand ischemia, no known CAD, had a relatively normal TTE several months ago. Troponin was 6.7 - was given ASA, Statin and Heparin drip. Heparin drip was stopped for hemoptysis, but then placed on therapeutic Lovenox? - she also has SARAH. He was admitted to the ICU. Repeat Troponin was lower and hemoptysis resolved. 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: Peripheral Neuropathy Cardio/Vascular: Yes: CAD, Deep Vein Thrombosis, HTN, Hyperlipdemia, Murmur, Other (PVD) Pulmonary: Yes: Asthma, COPD, Other (lung mets/some cavitary in appearance) Gastrointestinal: Yes: Gastritis Renal/: Yes: Cancer (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) ...LMP: 11/21/13 ...: No Infectious Disease: Yes: Other (hand infection in 03/2014 with group a strep bacteremia, group b strep bacteremia 08/2014) Psych: Yes: Anxiety, Depression Musculoskeletal: Yes: Other (chronic pain) Endocrine: Yes: Diabetes Mellitus Additional Medical History: neuropathy - Past Surgical History Past Surgical History: Yes: Amputation (right third and fourth toes), Bypass ( left leg), Cholecystectomy, Hernia Repair, Hysterectomy - Alcohol/Substance Use Hx Alcohol Use: No History of Substance Use: reports: None - Smoking History Smoking history: Never smoked Have you smoked in the past 12 months: No Aproximately how many cigarettes per day: 0 - Social History Usual Living Arrangement: With Spouse ADL: Family Assistance History of Recent Travel: No Home Medications - Allergies Allergies/Adverse Reactions: Allergies Allergy/AdvReac Type Severity Reaction Status Date / Time Penicillins Allergy Unknown Hives Verified 12/14/16 22:41 - Home Medications Home Medications: Ambulatory Orders Albuterol Sulfate Inhaler - [Ventolin HFA Inhaler -] 2 inh PO Q6H 11/21/16 Clotrimazole [Mycelex -] 10 mg PO 5XD 11/21/16 Furosemide [Lasix] 40 mg PO DAILY 11/21/16 Insulin (Novolog) [Novolog Flexpen -] See Protocol SQ TID 11/21/16 Insulin Glargine,Hum.rec.anlog [Lantus Solostar PEN -] 40 units SQ BID 11/21/16 Levothyroxine [Synthroid -] 100 mcg PO DAILY 11/21/16 Losartan Potassium 50 mg PO BID 11/21/16 Megestrol Acetate 80 mg PO BID 11/21/16 Montelukast Na [Singulair -] 1 tab HS 11/21/16 Ondansetron HCl [Zofran] 4 mg PO BID 11/21/16 Ranitidine HCl [Zantac] 300 mg PO HS 11/21/16 Tamoxifen Citrate 20 mg PO BID 11/21/16 Alprazolam [Xanax] 0.5 mg PO TID PRN 11/23/16 Oxycodone HCl [Roxicodone] 15 mg PO TID PRN 11/23/16 Acetaminophen [Tylenol .Regular Strength -] 650 mg PO Q6H PRN #0 tablet Albuterol Sulfate 0.5% [Ventolin 0.5% Nebulizing Soln. -] 1 amp NEB QIDR amp Aspirin [ASA -] 81 mg PO DAILY tab.chew 11/27/16 Atorvastatin Ca [Lipitor] 10 mg PO HS tablet 11/27/16 Budesonide/Formeterol Fumarate [SYMBICORT 160/4.5mcg -] 2 puff IH BID inhaler 11/27/16 Cholecalciferol (Vitamin D3) [Vitamin D -] 1,000 unit PO Q7D tab 11/27/16 Enoxaparin [Lovenox -] 120 mg SQ DAILY #30 dis.syr 11/27/16 Nystatin Powder 1 applic TP BID #0 bottle 11/27/16 Polyvinyl Alcohol [Artificial Tears] 1 drop OU QID PRN #1 bottle 11/27/16 Tiotropium [place] [Spiriva] 1 puff IH DAILY #1 inh 11/27/16 Prednisone [Deltasone -] 20 mg PO HS 12/10/16 Prednisone [Prednisone 50 MG TABLETS] 50 mg PO DAILY 12/10/16 Family Disease History - Family Disease History Family History: Unremarkable Family Disease History: Diabetes: Mother (CVA), Heart Disease: Mother, Other: Mother Review of Systems - Review of Systems Constitutional: reports: Malaise, Weakness Eyes: reports: No Symptoms HENT: reports: No Symptoms Neck: reports: No Symptoms Cardiovascular: reports: Shortness of Breath Respiratory: reports: Cough, Hemoptysis, SOB, SOB on Exertion Gastrointestinal: reports: Abdominal Pain, Bloating, Constipation, Nausea, Vomiting Genitourinary: reports: No Symptoms Breasts: reports: No Symptoms Reported Musculoskeletal: reports: No Symptoms Integumentary: reports: No Symptoms Endocrine: reports: No Symptoms Physical Exam Vital Signs: Vital Signs Temperature 98.7 F 12/15/16 18:00 Pulse Rate 112 H 12/15/16 18:00 Respiratory Rate 16 12/15/16 18:00 Blood Pressure 153/83 12/15/16 18:00 O2 Sat by Pulse Oximetry (%) 97 12/15/16 15:21 Constitutional: Yes: No Distress, Calm Eyes: Yes: WNL HENT: Yes: WNL Neck: Yes: WNL Cardiovascular: Yes: Tachycardia, S1, S2 Respiratory: Yes: Rales, SOB, Tachypnea Gastrointestinal: Yes: Distention, Hypoactive Bowel Sounds, Tenderness Musculoskeletal: Yes: WNL Extremities: Yes: WNL Edema: No Peripheral Pulses WNL: Yes Integumentary: Yes: WNL Neurological: Yes: Alert, Oriented Psychiatric: Yes: WNL Imaging - Results Chest X-ray: Report Reviewed, Image Reviewed Cat Scan: Report Reviewed Problem List - Problems (1) NSTEMI (non-ST elevated myocardial infarction) Code(s): I21.4 - NON-ST ELEVATION (NSTEMI) MYOCARDIAL INFARCTION (2) Diabetes Code(s): E11.9 - TYPE 2 DIABETES MELLITUS WITHOUT COMPLICATIONS Qualifiers: Diabetes mellitus type: type 2 Diabetes mellitus complication status: without complication (3) Endometrial cancer Code(s): C54.1 - MALIGNANT NEOPLASM OF ENDOMETRIUM (4) History of DVT of lower extremity Code(s): Z86.718 - PERSONAL HISTORY OF OTHER VENOUS THROMBOSIS AND EMBOLISM (5) Hyperlipidemia Code(s): E78.5 - HYPERLIPIDEMIA, UNSPECIFIED Qualifiers: Hyperlipidemia type: unspecified Qualified Code(s): E78.5 - Hyperlipidemia, unspecified (6) Hypertension Code(s): I10 - ESSENTIAL (PRIMARY) HYPERTENSION Qualifiers: Hypertension type: essential hypertension Qualified Code(s): I10 - Essential (primary) hypertension (7) Hypothyroidism Code(s): E03.9 - HYPOTHYROIDISM, UNSPECIFIED Qualifiers: Hypothyroidism type: unspecified Qualified Code(s): E03.9 - Hypothyroidism, unspecified (8) Metastasis to lung Code(s): C78.00 - SECONDARY MALIGNANT NEOPLASM OF UNSPECIFIED LUNG (9) Metastatic disease Code(s): C79.9 - SECONDARY MALIGNANT NEOPLASM OF UNSPECIFIED SITE (10) Hernia of abdominal cavity, with obstruction Code(s): K46.0 - UNSP ABDOMINAL HERNIA WITH OBSTRUCTION, WITHOUT GANGRENE Assessment/Plan Metastatic endometrial cancer with lung involvement COPD/Asthma HFNEF IDDM HTN NSTEMI Abdominal hernia with partial SBO h/o DVT -Surgery follow up -NPO -?NGT to [facility] - she pulled it out -Monitor for BMs -ASA, Statin, ?BB -Would stop Lovenox given SARAH and switch back to Heparin drip for anticoagulation - besides SARAH, better to use in critically ill pts who may need procedures/surgery -May need additional Lasix -Glycemic control -Restart home meds that can be given IV -GOC discussions Thank you for this interesting consult Critically Ill - CCT 45min Johnny Bhatti Pulm/Critical Care PACKING INSPECTOR [id number]
[2016-12-15] MEDS ORDERED: PT OWN MED DRAWER 7, Y5N ONE (21:10)
[2016-12-15] MEDS: ENOXAPARIN NA (PORCINE) 80 MG/0.8 ML DISP.SYRIN SQ SCH (21:12)
[2016-12-15] MEDS: MONTELUKAST NA 10 MG TABLET PO SCH (21:13)
[2016-12-15] MEDS: ACLIDINIUM BROMIDE 400 MCG/INH AERO.POWD IH SCH (21:42)
[2016-12-15] MEDS: BUDESONIDE/FORMETEROL FUMARATE 160/4.5 mcg INHALER IH SCH (21:45)
[2016-12-15] MEDS: MOXIFLOXACIN OS SCH (21:47)
[2016-12-15] MEDS: PREDNISOLONE 1% OS SCH (21:59)
[2016-12-15] MEDS ORDERED: predniSONE 20 MG TABLET (UD) PO SCH (22:00)
[2016-12-15] MEDS ORDERED: MONTELUKAST NA 10 MG TABLET PO SCH (22:00)
[2016-12-15] MEDS ORDERED: RANITIDINE HCL 150 MG TABLET (FP) PO SCH (22:00)
[2016-12-16] MEDS: ALPRAZolam 0.25 MG TABLET PO PRN ×4 (01:25→23:10)
[2016-12-16] MEDS: methylPREDNISolone NA SUCC 40 MG/1 ML VIAL IVPB SCH ×3 (01:26→17:52)
[2016-12-16] MEDS: morphine CARPU-JECT 2 MG/1 ML DISP.SYRIN IVPUSH PRN ×4 (02:00→13:25)
[2016-12-16] MEDS: INSULIN SLIDING SCALE (NOVOLOG) 1 VIAL SQ SCH ×3 (06:30→17:56)
[2016-12-16] MEDS: INSULIN DETEMIR 100 UNITS/ML MDV SQ SCH ×2 (06:30→16:23)
[2016-12-16] MEDS: LEVOTHYROXINE NA 100 MCG TABLET (FP) PO SCH (06:31)
[2016-12-16] MEDS: ALBUTEROL SO4 0.5 % INH SOLN 2.5 MG/0.5 ML VIAL.NEB. NEB SCH ×4 (06:37→23:04)
[2016-12-16 06:43] LABS: BASOPHIL 0.1 % (0-2.0); MCH 26.3 pg (25.7-33.7); MCHC 32.4 g/dl (32.0-36.0); MEAN CELL VOLUME 81.1 fl (80-96); NEUTROPHILS 92.3 % (42.8-82.8); PLATELET COUNT 192 K/MM3 (134-434); RDW 17.1 % (11.6-15.6); WHITE BLOOD COUNT 15.1 K/mm3 (4.0-10.0)
[2016-12-16 07:26] LABS: ANION GAP 8 (8-16); CALCIUM 8.4 mg/dL (8.5-10.1); CHOLESTEROL 190 mg/dL (50-200); CO2 33 mmol/L (21-32); CREATININE 0.9 mg/dL (0.55-1.02); GLUCOSE,RANDOM 140 mg/dL (74-106); MAGNESIUM 2.1 mg/dL (1.8-2.4); PHOSPHOROUS 3.1 mg/dL (2.5-4.9)
--- NOTE | 2016-12-16 09:32 | PN ---
Progress Note (short form) - Note Progress Note: PULMONARY/CCM Pt seen and examined in the ICU. Still short of breath with cough productive of yellow sputum, wheezing but slightly improved from yesterday. Last Vital Signs Temp Pulse Resp BP Pulse Ox 99.1 F 108 H 24 126/60 95 12/16/16 08:00 12/16/16 08:00 12/16/16 08:00 12/16/16 08:00 12/16/16 08:00 Intake & Output 12/13/16 12/14/16 12/15/16 12/16/16 23:59 23:59 23:59 23:59 Intake Total 1260 240 Output Total 500 Balance 760 240 Weight 190 lb 195 lb 5.273 oz 194 lb 0.108 oz Gen: tachypneic with speaking Heart: tachycardic, regular Lung: scattered rhonchi, wheezes Abd: soft, nontender Ext: + edema CBC, BMP 12/16/16 05:35 12/16/16 05:35 Troponin, BNP 12/15/16 12/16/16 11:45 05:35 Troponin I 4.31 H* B-Natriuretic Peptide 1223.67 H Active Medications Aclidinium Julian (Tudorza -) 1 puff IH BID [facility] Last Admin: 12/15/16 21:42 Dose: 1 puff Albuterol Sulfate (Ventolin 0.5% -) 1 amp NEB QIDR [facility] Last Admin: 12/16/16 06:37 Dose: 1 amp Albuterol Sulfate (Ventolin Hfa Inhaler -) 2 puff IH Q6H PRN PRN Reason: WHEEZING Alprazolam (Xanax -) 0.5 mg PO Q8H PRN PRN Reason: ANXIETY Last Admin: 12/16/16 08:14 Dose: 0.5 mg Artificial Tears (Artificial Tears) 1 drop OU QID PRN PRN Reason: DRY EYES Aspirin (Asa -) 81 mg PO DAILY [facility] Budesonide/Formoterol Fumarate (Symbicort 160/4.5mcg -) 2 puff IH BID [facility] Last Admin: 12/15/16 21:45 Dose: 2 puff Enoxaparin Sodium (Lovenox -) 80 mg SQ BID [facility] Last Admin: 12/15/16 21:12 Dose: 80 mg Famotidine/Sodium Chloride (Pepcid 20 Mg Premixed Ivpb -) 50 mls @ 100 mls/hr IVPB BID [facility] Last Admin: 12/15/16 21:13 Dose: 100 mls/hr Insulin Aspart (Novolog Vial Sliding Scale -) 1 vial SQ Q6HPO [facility] PRN Reason: Protocol Last Admin: 12/16/16 06:30 Dose: 2 units Insulin Detemir (Levemir Vial) 10 units SQ BIDI [facility] Last Admin: 12/16/16 06:30 Dose: 10 units Levothyroxine Sodium (Synthroid -) 100 mcg PO DAILY@0700 [facility] Last Admin: 12/16/16 06:31 Dose: 100 mcg Methylprednisolone Sodium Succinate (Solu-Medrol -) 40 mg IVPB Q8H-IV [facility] Last Admin: 12/16/16 01:26 Dose: 40 mg Montelukast Sodium (Singulair -) 10 mg PO HS [facility] Last Admin: 12/15/16 21:13 Dose: 10 mg Morphine Sulfate (Morphine Injection -) 1 mg IVPUSH Q3H PRN PRN Reason: PAIN Last Admin: 12/16/16 06:29 Dose: 1 mg Pt's Own Med: Prednisolone Opht Susp 1% 1 each OS QID [facility] Last Admin: 12/15/16 21:59 Dose: 1 each Pt's Own Med: Bromfenac Opht Kandace/0.09% 1 each OS DAILY [facility] Pt's Own Med: Moxifloxacin Opht Kandace:0.5% 1 each OS QID [facility] Last Admin: 12/15/16 21:47 Dose: 1 each Ondansetron HCl (Zofran Injection) 4 mg IVPB Q6H PRN PRN Reason: NAUSEA A/P Metastatic Endometrial Ca with Lung Mets Acute COPD Exacerbation Acute NSTEMI Partial Small Bowel Obstruction HTN DM h/o DVT - continue medrol at current dose - inhaled bronchodilators standing and PRN - O2 to keep Spo2 >90% - ASA - continue anticoagulation - echocardiogram - glucose control while systemic steroids - monitor bowel function - continue ICU monitoring for now
--- NOTE | 2016-12-16 09:39 | PN ---
Progress Note (short form) - Note Progress Note: No acute events In ICU Tolerating diet No abdominal pain Vital Signs Period Temp Pulse Resp BP Sys/Encarnacion Pulse Ox Last 24 Hr 98.3 F-100.1 F 99-115 14-24 113-155/60-83 95-97 Abd soft, NT, ND, + left lower abdominal wall hernia- no erythema, no tenderness CBC, BMP 12/16/16 05:35 12/16/16 05:35 CT A/P: left lower anterior abdominal wall hernia previously seen on prior images- chronic, + stool in colon Diet as tolerated OOB May need hernia repair as an outpatient- although patient high risk for any operative procedure Problem List - Problems (1) Abdominal pain Code(s): R10.9 - UNSPECIFIED ABDOMINAL PAIN Qualifiers: Qualified Code(s): R10.9 - Unspecified abdominal pain (2) NSTEMI (non-ST elevated myocardial infarction) Code(s): I21.4 - NON-ST ELEVATION (NSTEMI) MYOCARDIAL INFARCTION (3) Fecal impaction of colon Code(s): K56.41 - FECAL IMPACTION
[2016-12-16] MEDS: ENOXAPARIN NA (PORCINE) 80 MG/0.8 ML DISP.SYRIN SQ SCH ×2 (09:44→21:16)
[2016-12-16] MEDS: BUDESONIDE/FORMETEROL FUMARATE 160/4.5 mcg INHALER IH SCH ×2 (09:44→21:18)
[2016-12-16] MEDS: ASPIRIN 81 MG CHEWABLE TABLETS PO SCH (09:44)
[2016-12-16] MEDS: FAMOTIDINE 20 MG/50 ML IVPB 50 ML IVPB SCH ×2 (09:44→21:15)
[2016-12-16] MEDS: ACLIDINIUM BROMIDE 400 MCG/INH AERO.POWD IH SCH ×2 (09:45→21:17)
[2016-12-16] MEDS: BROMFENAC OS SCH (09:56)
[2016-12-16] MEDS: MOXIFLOXACIN OS SCH ×4 (09:57→21:16)
[2016-12-16] MEDS: PREDNISOLONE 1% OS SCH ×4 (09:57→21:16)
[2016-12-16] MEDS ORDERED: LEVOTHYROXINE SODIUM 100 MCG VIAL IVPUSH SCH (10:00)
--- NOTE | 2016-12-16 10:48 | PN ---
Progress Note, Physician Chief Complaint: Patient seen in ICU, currently awake and alert. Complains of body pain and shortness of breath with productive cough Episode of blood tinged sputum History of Present Illness: Patient was seen and examined. Chart was reviewed Denies chest pain or palpitations Sinus tachycardia Pedal edema - Current Medication List Current Medications: Active Medications Aclidinium [place] (Tudorza -) 1 puff IH BID [facility] Last Admin: 12/16/16 09:45 Dose: 1 puff Albuterol Sulfate (Ventolin 0.5% -) 1 amp NEB QIDR [facility] Last Admin: 12/16/16 06:37 Dose: 1 amp Albuterol Sulfate (Ventolin Hfa Inhaler -) 2 puff IH Q6H PRN PRN Reason: WHEEZING Alprazolam (Xanax -) 0.5 mg PO Q8H PRN PRN Reason: ANXIETY Last Admin: 12/16/16 08:14 Dose: 0.5 mg Artificial Tears (Artificial Tears) 1 drop OU QID PRN PRN Reason: DRY EYES Aspirin (Asa -) 81 mg PO DAILY [facility] Last Admin: 12/16/16 09:44 Dose: 81 mg Budesonide/Formoterol Fumarate (Symbicort 160/4.5mcg -) 2 puff IH BID [facility] Last Admin: 12/16/16 09:44 Dose: 2 puff Enoxaparin Sodium (Lovenox -) 80 mg SQ BID [facility] Last Admin: 12/16/16 09:44 Dose: 80 mg Famotidine/Sodium Chloride (Pepcid 20 Mg Premixed Ivpb -) 50 mls @ 100 mls/hr IVPB BID [facility] Last Admin: 12/16/16 09:44 Dose: 100 mls/hr Insulin Aspart (Novolog Vial Sliding Scale -) 1 vial SQ Q6HPO [facility] PRN Reason: Protocol Last Admin: 12/16/16 06:30 Dose: 2 units Insulin Detemir (Levemir Vial) 10 units SQ BIDI [facility] Last Admin: 12/16/16 06:30 Dose: 10 units Levothyroxine Sodium (Synthroid -) 100 mcg PO DAILY@0700 [facility] Last Admin: 12/16/16 06:31 Dose: 100 mcg Methylprednisolone Sodium Succinate (Solu-Medrol -) 40 mg IVPB Q8H-IV [facility] Last Admin: 12/16/16 09:44 Dose: 40 mg Montelukast Sodium (Singulair -) 10 mg PO HS [facility] Last Admin: 12/15/16 21:13 Dose: 10 mg Morphine Sulfate (Morphine Injection -) 1 mg IVPUSH Q3H PRN PRN Reason: PAIN Last Admin: 12/16/16 10:09 Dose: 1 mg Pt's Own Med: Prednisolone Opht Susp 1% 1 each OS QID [facility] Last Admin: 12/16/16 09:57 Dose: 1 each Pt's Own Med: Bromfenac Opht Kandace/0.09% 1 each OS DAILY [facility] Last Admin: 12/16/16 09:56 Dose: 1 each Pt's Own Med: Moxifloxacin Opht Kandace:0.5% 1 each OS QID [facility] Last Admin: 12/16/16 09:57 Dose: 1 each Ondansetron HCl (Zofran Injection) 4 mg IVPB Q6H PRN PRN Reason: NAUSEA - Objective Vital Signs: Vital Signs Temperature 99.1 F 12/16/16 08:00 Pulse Rate 100 H 12/16/16 10:02 Respiratory Rate 24 12/16/16 10:02 Blood Pressure 143/81 12/16/16 10:02 O2 Sat by Pulse Oximetry (%) 95 12/16/16 08:00 Neck: Yes: Supple Cardiovascular: Yes: Regular Rate and Rhythm, Tachycardia, S1, S2 Respiratory: Yes: Diminished, Wheezes Gastrointestinal: Yes: Normal Bowel Sounds, Soft, Abdomen, Obese. No: Tenderness Edema: Yes Edema: LLE: 1+, RLE: 1+ Additional Findings/Remarks: - Review of Systems Constitutional: denies: Chills, Fever Cardiovascular: reports: Shortness of Breath denies: Chest Pain, Palpitations Respiratory: reports: SOB denies: Orthopnea, PND Gastrointestinal: denies: Abdominal Pain, Constipation, Diarrhea, Melena, Nausea , Rectal Bleeding, Vomiting Neurological: reports: Weakness. denies: Dizziness, Headache, Seizure, Syncope Labs: CBC, BMP 12/16/16 05:35 12/16/16 05:35 INR, PTT INR 0.95 (0.82-1.09) 12/15/16 00:27 Laboratory Results - last 24 hr 12/15/16 12/15/16 12/15/16 00:27 11:30 11:45 WBC RBC Hgb Hct MCV MCH MCHC RDW Plt Count MPV Neutrophils % Lymphocytes % Monocytes % Eosinophils % Basophils % PTT (Actin FS) Sodium Potassium Chloride Carbon Dioxide Anion Gap BUN Creatinine POC Glucometer 68.17872 Random Glucose Calcium Phosphorus Magnesium Creatine Kinase 165 Creatine Kinase Index 6.0 H CK-MB (CK-2) 9.969 H Troponin I 4.31 H* B-Natriuretic Peptide Triglycerides Cholesterol Total LDL Cholesterol HDL Cholesterol Urine Color Lt. yellow Urine Appearance Clear Urine pH 5.5 Ur Specific [place] 1.020 Urine Protein 1+ H Urine Glucose (UA) Negative Urine Ketones Trace H Urine Blood Negative Urine Nitrite Negative Urine Bilirubin 1+ H Urine Urobilinogen 0.2 Ur Leukocyte Esterase Negative Urine RBC 1 Urine WBC 1 Ur Epithelial Cells Rare Urine Bacteria Rare Hyaline Casts 91 Urine Mucus Many Stool Occult Blood 12/15/16 12/16/16 12/16/16 23:35 05:35 05:35 WBC 15.1 H RBC 4.16 Hgb 10.9 D Hct 33.7 MCV 81.1 MCH 26.3 MCHC 32.4 RDW 17.1 H Plt Count 192 D MPV 8.0 Neutrophils % 92.3 H D Lymphocytes % 6.4 L D Monocytes % 1.2 L D Eosinophils % 0.0 D Basophils % 0.1 PTT (Actin FS) Sodium 138 Potassium 4.8 Chloride 97 L Carbon Dioxide 33 H Anion Gap 8 BUN 24 H D Creatinine 0.9 D POC Glucometer 173.20523 Random Glucose 140 H D Calcium 8.4 L Phosphorus 3.1 D Magnesium 2.1 Creatine Kinase Creatine Kinase Index CK-MB (CK-2) Troponin I B-Natriuretic Peptide 1223.67 H Triglycerides 128 D Cholesterol 190 D Total LDL Cholesterol 115 H HDL Cholesterol 52 D Urine Color Urine Appearance Urine pH Ur Specific [place] Urine Protein Urine Glucose (UA) Urine Ketones Urine Blood Urine Nitrite Urine Bilirubin Urine Urobilinogen Ur Leukocyte Esterase Urine RBC Urine WBC Ur Epithelial Cells Urine Bacteria Hyaline Casts Urine Mucus Stool Occult Blood Problem List - Problems (1) Abdominal pain Code(s): R10.9 - UNSPECIFIED ABDOMINAL PAIN Qualifiers: Abdominal location: unspecified location Qualified Code(s): R10.9 - Unspecified abdominal pain (2) NSTEMI (non-ST elevated myocardial infarction) Code(s): I21.4 - NON-ST ELEVATION (NSTEMI) MYOCARDIAL INFARCTION (3) Cervical carcinoma Code(s): C53.9 - MALIGNANT NEOPLASM OF CERVIX UTERI, UNSPECIFIED (4) Diabetes Code(s): E11.9 - TYPE 2 DIABETES MELLITUS WITHOUT COMPLICATIONS Qualifiers: Diabetes mellitus type: type 2 Diabetes mellitus complication status: without complication (5) Endometrial cancer Code(s): C54.1 - MALIGNANT NEOPLASM OF ENDOMETRIUM (6) Hyperlipidemia Code(s): E78.5 - HYPERLIPIDEMIA, UNSPECIFIED Qualifiers: Hyperlipidemia type: unspecified Qualified Code(s): E78.5 - Hyperlipidemia, unspecified (7) Hypertension Code(s): I10 - ESSENTIAL (PRIMARY) HYPERTENSION Qualifiers: Hypertension type: essential hypertension Qualified Code(s): I10 - Essential (primary) hypertension (8) Hypothyroidism Code(s): E03.9 - HYPOTHYROIDISM, UNSPECIFIED Qualifiers: Hypothyroidism type: unspecified Qualified Code(s): E03.9 - Hypothyroidism, unspecified (9) Metastasis to lung Code(s): C78.00 - SECONDARY MALIGNANT NEOPLASM OF UNSPECIFIED LUNG (10) Obesity Code(s): E66.9 - OBESITY, UNSPECIFIED Assessment/Plan 1. Elevated troponin c/w NSTEMI, underlying CAD 2. 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 Hypertension 4. IDDM 5. Abdominal pain, etiology to be determined, probable impacted stool 6. COPD 7. RBBB PLAN: 1. Trend troponin - currently 4.31 as of last night 2. Currently on Lovenox 3. ASA if not contraindicated eventually 4. Transthoracic echocardiography to assess LV/RV and valvular function 5. Abdominal CT noted - dilation of small bowels 6. In view of multiple co-morbidities, would treat conservatively and optimize cardiac therapy Further plans are to follow. Janet Moise MD
--- NOTE | 2016-12-16 12:15 | EKG ---
Test Reason : Blood Pressure : / mmHG Vent. Rate : 102 BPM Atrial Rate : 102 BPM P-R Int : 114 ms QRS Dur : 124 ms QT Int : 374 ms P-R-T Axes : 059 -62 056 degrees QTc Int : 487 ms SINUS TACHYCARDIA RIGHT BUNDLE BRANCH BLOCK LEFT ANTERIOR FASCICULAR BLOCK BIFASCICULAR BLOCK ABNORMAL ECG WHEN COMPARED WITH ECG OF 15-DEC-2016 15:43, NO SIGNIFICANT CHANGE WAS FOUND BASELINE ARTIFACTS Confirmed by GRIS GARCIA MD ([id number]) on 12/16/2016 12:14:48 PM Referred By: Inge MIRANDA Confirmed By:GRIS GARCIA MD
[2016-12-16] MEDS ORDERED: ALBUTEROL SO4 0.083% IH SOL 2.5 MG/3 ML VIAL.NEB. NEB ONE (12:42)
--- NOTE | 2016-12-16 13:41 | EKG ---
Test Reason : Blood Pressure : / mmHG Vent. Rate : 109 BPM Atrial Rate : 109 BPM P-R Int : 112 ms QRS Dur : 120 ms QT Int : 358 ms P-R-T Axes : 066 -62 082 degrees QTc Int : 482 ms SINUS TACHYCARDIA RIGHT BUNDLE BRANCH BLOCK LEFT ANTERIOR FASCICULAR BLOCK BIFASCICULAR BLOCK ABNORMAL ECG WHEN COMPARED WITH ECG OF 15-DEC-2016 11:41, PREMATURE SUPRAVENTRICULAR COMPLEXES ARE NO LONGER PRESENT Confirmed by GRIS GARCIA MD ([id number]) on 12/16/2016 1:40:37 PM Referred By: Inge MIRANDA Confirmed By:GRIS GARCIA MD
[2016-12-16] MEDS: oxyCODONE HCL 5 MG TABLET PO PRN ×2 (15:04→23:11)
--- NOTE | 2016-12-16 19:08 | PN ---
Teaching Attending Note Name of Resident: Larissa Mederos ATTENDING PHYSICIAN STATEMENT I saw and evaluated the patient. I reviewed the resident's note and discussed the case with the resident. I agree with the resident's findings and plan as documented. SUBJECTIVE: Patient is feeling better. No acute distress, c/o having difficulty for bringing up her sputum. OBJECTIVE: Vital Signs Temperature 98.7 F 12/16/16 18:00 Pulse Rate 108 H 12/16/16 18:00 Respiratory Rate 20 12/16/16 18:00 Blood Pressure 142/61 12/16/16 18:00 O2 Sat by Pulse Oximetry (%) 95 12/16/16 08:00 CBCD WBC 15.1 K/mm3 (4.0-10.0) H 12/16/16 05:35 RBC 4.16 M/mm3 (3.60-5.2) 12/16/16 05:35 Hgb 10.9 GM/dL (10.7-15.3) D 12/16/16 05:35 Hct 33.7 % (32.4-45.2) 12/16/16 05:35 MCV 81.1 fl (80-96) 12/16/16 05:35 MCHC 32.4 g/dl (32.0-36.0) 12/16/16 05:35 RDW 17.1 % (11.6-15.6) H 12/16/16 05:35 Plt Count 192 K/MM3 (134-434) D 12/16/16 05:35 MPV 8.0 fl (7.5-11.1) 12/16/16 05:35 CMP Sodium 138 mmol/L (136-145) 12/16/16 05:35 Potassium 4.8 mmol/L (3.5-5.1) 12/16/16 05:35 Chloride 97 mmol/L (98-107) L 12/16/16 05:35 Carbon Dioxide 33 mmol/L (21-32) H 12/16/16 05:35 Anion Gap 8 (8-16) 12/16/16 05:35 BUN 24 mg/dL (7-18) H D 12/16/16 05:35 Creatinine 0.9 mg/dL (0.55-1.02) D 12/16/16 05:35 Creat Clearance w eGFR 34.85 (>60) 12/15/16 00:27 Random Glucose 140 mg/dL (74-106) H D 12/16/16 05:35 Calcium 8.4 mg/dL (8.5-10.1) L 12/16/16 05:35 Total Bilirubin 0.5 mg/dL (0.2-1.0) D 12/15/16 00:27 AST 53 U/L (15-37) H D 12/15/16 00:27 ALT 47 U/L (12-78) D 12/15/16 00:27 Alkaline Phosphatase 98 U/L (45-117) 12/15/16 00:27 Total Protein 6.4 g/dl (6.4-8.2) 12/15/16 00:27 Albumin 3.1 g/dl (3.4-5.0) L 12/15/16 00:27 CARDIAC ENZYMES Creatine Kinase 165 IU/L (26-192) 12/15/16 11:45 Troponin I 4.31 ng/ml (0.00-0.05) H* 12/15/16 11:45 Current Medications Generic Name Dose Route Start Last Admin Trade Name Freq PRN Reason Stop Dose Admin Aclidinium [place] 1 puff 12/15/16 22:00 12/16/16 09:45 Tudorza - IH 1 puff BID [facility] Administration Albuterol Sulfate 1 amp 12/15/16 18:00 12/16/16 17:28 Ventolin 0.5% - NEB 1 amp QIDR [facility] Administration Albuterol Sulfate 2 puff 12/15/16 14:40 Ventolin Hfa Inhaler - IH Q6H PRN WHEEZING Alprazolam 0.5 mg 12/15/16 17:42 12/16/16 15:10 Xanax - PO 0.5 mg Q8H PRN Administration ANXIETY Artificial Tears 1 drop 12/15/16 12:53 Artificial Tears OU QID PRN DRY EYES Aspirin 81 mg 12/16/16 10:00 12/16/16 09:44 Asa - PO 81 mg DAILY [facility] Administration Budesonide/Formoterol Fumarate 2 puff 12/15/16 22:00 12/16/16 09:44 Symbicort 160/4.5mcg - IH 2 puff BID [facility] Administration Enoxaparin Sodium 80 mg 12/15/16 22:00 09/03/17 09:44 Lovenox - SQ 80 mg BID [facility] Administration Furosemide 20 mg 12/17/16 06:00 Lasix Injection - IVPUSH BID@0600,1400 [facility] Famotidine/Sodium Chloride 50 mls @ 100 mls/hr 12/15/16 13:00 12/16/16 09:44 Pepcid 20 Mg Premixed Ivpb - IVPB 100 mls/hr BID [facility] Administration Insulin Aspart 1 vial 12/15/16 18:00 12/16/16 17:56 Novolog Vial Sliding Scale - SQ Not Given Q6HPO [facility] Protocol Insulin Detemir 10 units 12/15/16 12:48 12/16/16 16:23 Levemir Vial SQ 10 units BIDI [facility] Administration Levothyroxine Sodium 100 mcg 12/16/16 07:00 12/16/16 06:31 Synthroid - PO 100 mcg DAILY@0700 [facility] Administration Methylprednisolone Sodium Succinate 40 mg 12/15/16 13:00 12/16/16 17:52 Solu-Medrol - IVPB 40 mg Q8H-IV [facility] Administration Montelukast Sodium 10 mg 12/15/16 22:00 12/15/16 21:13 Singulair - PO 10 mg HS [facility] Administration Pt's Own Med: 1 each 12/15/16 22:00 12/16/16 17:52 Prednisolone Opht OS 1 each Susp 1% QID [facility] Administration Pt's Own Med: 1 each 12/16/16 10:00 12/16/16 09:56 Bromfenac Opht Kandace/ OS 1 each 0.09% DAILY [facility] Administration Pt's Own Med: 1 each 12/15/16 22:00 12/16/16 17:52 Moxifloxacin Opht OS 1 each Kandace:0.5% QID [facility] Administration Ondansetron HCl 4 mg 12/15/16 14:40 Zofran Injection IVPB Q6H PRN NAUSEA Oxycodone HCl 15 mg 12/16/16 14:57 12/16/16 15:04 Roxicodone - PO 15 mg Q8H PRN Administration PAIN Home Medications Medication Instructions Recorded Albuterol Sulfate Inhaler - 2 inh PO Q6H 11/21/16 [Ventolin HFA Inhaler -] Clotrimazole [Mycelex -] 10 mg PO 5XD 11/21/16 Furosemide [Lasix] 40 mg PO DAILY 11/21/16 Insulin (Novolog) [Novolog Flexpen See Protocol SQ TID 11/21/16 -] Insulin Glargine,Hum.rec.anlog 40 units SQ BID 11/21/16 [Lantus Solostar PEN -] Levothyroxine [Synthroid -] 100 mcg PO DAILY 11/21/16 Losartan Potassium 50 mg PO BID 11/21/16 Megestrol Acetate 80 mg PO BID 11/21/16 Montelukast Na [Singulair -] 1 tab HS 11/21/16 Ondansetron HCl [Zofran] 4 mg PO BID 11/21/16 Ranitidine HCl [Zantac] 300 mg PO HS 11/21/16 Tamoxifen Citrate 20 mg PO BID 11/21/16 Alprazolam [Xanax] 0.5 mg PO TID PRN 11/23/16 Oxycodone HCl [Roxicodone] 15 mg PO TID PRN 11/23/16 Acetaminophen [Tylenol .Regular 650 mg PO Q6H PRN #0 tablet 11/27/16 Strength -] Albuterol Sulfate 0.5% [Ventolin 1 amp NEB QIDR amp 11/27/16 0.5% Nebulizing Soln. -] Aspirin [ASA -] 81 mg PO DAILY tab.chew 11/27/16 Atorvastatin Ca [Lipitor] 10 mg PO HS tablet 11/27/16 Budesonide/Formeterol Fumarate 2 puff IH BID inhaler 11/27/16 [SYMBICORT 160/4.5mcg -] Cholecalciferol (Vitamin D3) 1,000 unit PO Q7D tab 11/27/16 [Vitamin D -] Enoxaparin [Lovenox -] 120 mg SQ DAILY #30 dis.syr 11/27/16 Nystatin Powder 1 applic TP BID #0 bottle 11/27/16 Polyvinyl Alcohol [Artificial 1 drop OU QID PRN #1 bottle 11/27/16 Tears] Tiotropium [place] [Spiriva] 1 puff IH DAILY #1 inh 11/27/16 Prednisone [Deltasone -] 20 mg PO HS 12/10/16 Prednisone [Prednisone 50 MG 50 mg PO DAILY 12/10/16 TABLETS] Laboratory Tests 12/15/16 12/15/16 12/15/16 00:27 00:27 04:01 Anion Gap 11 Creatinine 1.5 H D Lactic Acid 3.1 H* 1.6 Creatine Kinase Index 7.1 H* CK-MB (CK-2) 12.648 H Troponin I 6.77 H* Triglycerides Cholesterol Total LDL Cholesterol HDL Cholesterol 12/15/16 12/16/16 04:01 05:35 Anion Gap Creatinine Lactic Acid Creatine Kinase Index CK-MB (CK-2) Troponin I 5.43 H* Triglycerides 128 D Cholesterol 190 D Total LDL Cholesterol 115 H HDL Cholesterol [address] A/P: left lower anterior abdominal wall hernia previously seen on prior images- chronic, + stool in colon Chest: positive for wheezing bl diffuse. positive for rales at bases bl. Heart: S1S2 positive, no rub or gallop rest of PE per resident's notes ASSESSMENT AND PLAN: Patient is a 66F w/ hx of endometrial cancer w/ mets to lungs on tamoxifen, asthma, diastolic CHF, IDDM, DVT, HTN, HLD, hypothyroidism, s/p L eye cataract surgery several days ago presenting with abdominal pain, found to have NSTEMI #NSTEMI :troponin I of 6.77--5.3-->4.31 trended down, discussed with operations intelligence superintendent . continue lovenox 80mg sq bid, patient has no longer hemoptysis , patient has hx of Lung Ca with Severe COPD continue to be in ICU. Therapy Teacher on the case, continue Aspirin, lipitor continue. #abdominal pain resolved ; lactic acid of 3.1--> 1.6, surgical consult appreciated , hernia repair as an outpatient but patient is a high risk patient. #SARAH creatinine of 1.5 -->0.9 now resolved ;lasix 20mg IV bid #hX OF sEVERE COPD, AND lUNG CA #H xof Uterine cancer continue home tamoxifen 20 BID ;palliative care team consulted, pt has poor prognosis #Acute leukocytosis improving likely due to prednisone; f/u blood cx, urine cx #IDDM , will cut further to 10 of levemir BID since NPO and having episodes of Low blood sugar; SSI #HLD was given high dose atorvastatin 80mg , will continue with 40mg daily LDL 115 #Hypothyroid continued home dose of levothyroxine #asthma 2L O2 via NC; continue budesonide/formeterol BID, montelukast 10mg HS, ventolin, albuterol PRN DVt px: Lovenox
[2016-12-16] MEDS: ONDANSETRON 4 MG/2 ML VIAL IVPB PRN (19:32)
--- NOTE | 2016-12-16 20:13 | PN ---
Physical Exam: SUBJECTIVE: Patient seen and examined. No acute events overnight. Offers no new complaints. Said she feels better than yesterday. OBJECTIVE: Vital Signs Period Temp Pulse Resp BP Sys/Encarnacion Pulse Ox Last 24 Hr 98.7 F-100.1 F 92-115 16-24 126-165/60-81 95-96 GENERAL: The patient is awake, alert, and fully oriented, in no acute distress. HEAD:Cushanoid alvarado facies. Normal with no signs of trauma. EYES: PERRL, conjunctiva clear NECK: supple. LUNGS: inspiratory and expiratory wheezing. accessory muscle use. HEART: Regular rate and rhythm, S1, S2 without murmur, rub or gallop. ABDOMEN: bruising. Soft, nontender, nondistended, normoactive bowel sounds, no guarding, no rebound, no hepatosplenomegaly, no masses. EXTREMITIES: 2+ pulses, warm, well-perfused, no edema. PSYCH: Normal mood, normal affect. SKIN: Warm, dry, normal turgor, no rashes or lesions noted Laboratory Results - last 24 hr 12/15/16 12/15/16 12/16/16 16:54 23:35 05:35 WBC 15.1 H RBC 4.16 Hgb 10.9 D Hct 33.7 MCV 81.1 MCH 26.3 MCHC 32.4 RDW 17.1 H Plt Count 192 D MPV 8.0 Neutrophils % 92.3 H D Lymphocytes % 6.4 L D Monocytes % 1.2 L D Eosinophils % 0.0 D Basophils % 0.1 PTT (Actin FS) Sodium Potassium Chloride Carbon Dioxide Anion Gap BUN Creatinine POC Glucometer 84.29585 173.24052 Random Glucose Calcium Phosphorus Magnesium B-Natriuretic Peptide Triglycerides Cholesterol Total LDL Cholesterol HDL Cholesterol 12/16/16 12/16/16 12/16/16 05:35 05:35 05:35 WBC RBC Hgb Hct MCV MCH MCHC RDW Plt Count MPV Neutrophils % Lymphocytes % Monocytes % Eosinophils % Basophils % PTT (Actin FS) 30.0 D Sodium 138 Potassium 4.8 Chloride 97 L Carbon Dioxide 33 H Anion Gap 8 BUN 24 H D Creatinine 0.9 D POC Glucometer Random Glucose 140 H D Calcium 8.4 L Phosphorus 3.1 D Magnesium 2.1 B-Natriuretic Peptide 1223.67 H Triglycerides 128 D Cancelled Cholesterol 190 D Cancelled Total LDL Cholesterol 115 H Cancelled HDL Cholesterol 52 D Cancelled 12/16/16 12/16/16 05:57 16:14 WBC RBC Hgb Hct MCV MCH MCHC RDW Plt Count MPV Neutrophils % Lymphocytes % Monocytes % Eosinophils % Basophils % PTT (Actin FS) Sodium Potassium Chloride Carbon Dioxide Anion Gap BUN Creatinine POC Glucometer 163.95048 139.39693 Random Glucose Calcium Phosphorus Magnesium B-Natriuretic Peptide Triglycerides Cholesterol Total LDL Cholesterol HDL Cholesterol Active Medications Generic Name Dose Route Start Last Admin Trade Name Freq PRN Reason Stop Dose Admin Aclidinium [place] 1 puff 12/15/16 22:00 12/16/16 09:45 Tudorza - IH 1 puff BID RAFA Administration Albuterol Sulfate 1 amp 12/15/16 18:00 12/16/16 17:28 Ventolin 0.5% - NEB 1 amp QIDR RAFA Administration Albuterol Sulfate 2 puff 12/15/16 14:40 Ventolin Hfa Inhaler - IH Q6H PRN WHEEZING Alprazolam 0.5 mg 12/15/16 17:42 12/16/16 15:10 Xanax - PO 0.5 mg Q8H PRN Administration ANXIETY Artificial Tears 1 drop 12/15/16 12:53 Artificial Tears OU QID PRN DRY EYES Aspirin 81 mg 12/16/16 10:00 12/16/16 09:44 Asa - PO 81 mg DAILY RAFA Administration Budesonide/Formoterol Fumarate 2 puff 12/15/16 22:00 12/16/16 09:44 Symbicort 160/4.5mcg - IH 2 puff BID RAFA Administration Enoxaparin Sodium 80 mg 12/15/16 22:00 12/16/16 09:44 Lovenox - SQ 80 mg BID RAFA Administration Furosemide 20 mg 12/17/16 06:00 Lasix Injection - IVPUSH BID@0600,1400 [facility] Famotidine/Sodium Chloride 50 mls @ 100 mls/hr 12/15/16 13:00 12/16/16 09:44 Pepcid 20 Mg Premixed Ivpb - IVPB 100 mls/hr BID RAFA Administration Insulin Aspart 1 vial 12/15/16 18:00 12/16/16 17:56 Novolog Vial Sliding Scale - SQ Not Given Q6HPO [facility] Protocol Insulin Detemir 10 units 12/15/16 12:48 12/16/16 16:23 Levemir Vial SQ 10 units BIDI RAFA Administration Levothyroxine Sodium 100 mcg 12/16/16 07:00 12/16/16 06:31 Synthroid - PO 100 mcg DAILY@0700 RAFA Administration Methylprednisolone Sodium Succinate 40 mg 12/15/16 13:00 12/16/16 17:52 Solu-Medrol - IVPB 40 mg Q8H-IV RAFA Administration Montelukast Sodium 10 mg 12/15/16 22:00 12/15/16 21:13 Singulair - PO 10 mg HS RAFA Administration Pt's Own Med: 1 each 12/15/16 22:00 12/16/16 17:52 Prednisolone Opht OS 1 each Susp 1% QID RAFA Administration Pt's Own Med: 1 each 12/16/16 10:00 12/16/16 09:56 Bromfenac Opht Kandace/ OS 1 each 0.09% DAILY RAFA Administration Pt's Own Med: 1 each 12/15/16 22:00 12/16/16 17:52 Moxifloxacin Opht OS 1 each Kandace:0.5% QID RAFA Administration Ondansetron HCl 4 mg 12/15/16 14:40 12/16/16 19:32 Zofran Injection IVPB 4 mg Q6H PRN Administration NAUSEA Oxycodone HCl 15 mg 12/16/16 14:57 12/16/16 15:04 Roxicodone - PO 15 mg Q8H PRN Administration PAIN ASSESSMENT/PLAN: Patient is a 66F w/ hx of endometrial cancer w/ mets to lungs on tamoxifen, asthma, diastolic CHF, IDDM, DVT, HTN, HLD, hypothyroidism, s/p L eye cataract surgery several days ago presenting with abdominal pain, found to have NSTEMI #NSTEMI : -Troponin: 6.77 trending down -Will trend -Stopped heparin because of hemoptysis which was discussed with cardio -Contine Lovenox 80mg -Patient moved to ICU for continues quality assurance monitor final. Accepted by Dr. SANCHEZ - LEENA recommended by cardiology to assess LV/RV and valvular function -Atorvastatin given 80mg Once -Continue Aspirin -EKG series #Abdominal pain: Lactic acid of 3.1 to 1.6 -May need hernia repair as outpatient but patient is high risk per Dr. Camargo #SARAH: -resolving (BUN now 24, Creatinine .9) -Continue IV Lasix 20mg Pain Control: -Oxycodone 15mg PO PRN q8 #Uterine cancer -continue home tamoxifen 20 BID -palliative care team consulted, pt has poor prognosis -get in contact with pt's oncologist #Leukocytosis -likely due to prednisone -cultures negative #IDDM -10U of levemir BID -SSI -resume home dose of 40U levemir BID once pt is started on diet #HLD -given one dose of atorvastatin 80mg -f/u lipid profile #Hypothyroid -continued home dose of levothyroxine #Asthma -2L O2 via NC -continue budesonide/formeterol BID, montelukast 10mg HS, ventolin, albuterol PRN Visit type - Emergency Visit Emergency Visit: Yes ED Registration Date: 12/15/16 Care time: The patient presented to the Emergency Department on the above date and was hospitalized for further evaluation of their emergent condition. - New Patient This patient is new to me today: Yes Date on this admission: 12/16/16 - Critical Care Critical Care patient: Yes Total Critical Care Time (in minutes): 45 Critical Care Statement: The care of this patient involved high complexity decision making to prevent further life threatening deterioration of the patient 's condition and/or to evaluate & treat vital organ system(s) failure or risk of failure.
[2016-12-16] MEDS: MONTELUKAST NA 10 MG TABLET PO SCH (21:15)
[2016-12-17] MEDS: INSULIN SLIDING SCALE (NOVOLOG) 1 VIAL SQ SCH ×5 (00:35→21:50)
[2016-12-17] MEDS: methylPREDNISolone NA SUCC 40 MG/1 ML VIAL IVPB SCH ×3 (01:10→21:10)
[2016-12-17] MEDS: ALBUTEROL SO4 0.5 % INH SOLN 2.5 MG/0.5 ML VIAL.NEB. NEB SCH ×3 (05:00→18:04)
[2016-12-17] MEDS: LEVOTHYROXINE NA 100 MCG TABLET (FP) PO SCH (06:03)
[2016-12-17] MEDS: FUROSEMIDE 40 MG/4 ML INJECTABLE VIAL IVPUSH SCH ×2 (06:03→13:57)
[2016-12-17] MEDS: INSULIN DETEMIR 100 UNITS/ML MDV SQ SCH ×2 (06:06→17:13)
[2016-12-17 06:16] LABS: MCH 26.6 pg (25.7-33.7); MCHC 32.8 g/dl (32.0-36.0); MEAN CELL VOLUME 81.1 fl (80-96); MEAN PLT VOLUME 8.2 fl (7.5-11.1); PLATELET COUNT 202 K/MM3 (134-434); RDW 17.2 % (11.6-15.6); WHITE BLOOD COUNT 14.6 K/mm3 (4.0-10.0)
[2016-12-17] MEDS: oxyCODONE HCL 5 MG TABLET PO PRN ×3 (06:34→21:22)
[2016-12-17] MEDS: ALPRAZolam 0.25 MG TABLET PO PRN ×3 (06:34→21:22)
[2016-12-17 06:45] LABS: ALBUMIN 2.6 g/dl (3.4-5.0); ALK PHOS 95 U/L (45-117); ANION GAP 10 (8-16); BILIRUBIN,TOTAL 0.6 mg/dL (0.2-1.0); CALCIUM 8.7 mg/dL (8.5-10.1); CO2 30 mmol/L (21-32); CREATININE 1.1 mg/dL (0.55-1.02); GLUCOSE,RANDOM 276 mg/dL (74-106); MAGNESIUM 2.3 mg/dL (1.8-2.4); PHOSPHOROUS 3.1 mg/dL (2.5-4.9); SGOT/AST 31 U/L (15-37); SGPT/ALT 38 U/L (12-78); TOT PROT 5.8 g/dl (6.4-8.2)
[2016-12-17] MEDS ORDERED: HEMOQUE TEST 1 EACH EACH ONE (06:46)
--- NOTE | 2016-12-17 08:38 | PN ---
Physical Exam: SUBJECTIVE: Patient seen and examined. SOB and wheezing improving, continues to have cough with blood-tinged sputum, denies chest pain, no fever or chills. Minimal abdominal pain this AM; Tolerating diet, nml BM yesterday OBJECTIVE: Vital Signs Period Temp Pulse Resp BP Sys/Encarnacion Pulse Ox Last 24 Hr 98.0 F-98.9 F 92-112 16-28 124-167/61-92 97-97 GENERAL: [place], awake, alert, and fully oriented, NAD EYES: sclera anicteric, conjunctiva clear ENT: white exudates in oropharynx, moist mucous membranes LUNGS: scattered rhonchi and wheezes bilaterally HEART: RRR, normal S1/S2 without murmur, rub or gallop ABDOMEN: Soft, ntnd EXTREMITIES: bilateral 2+ LE edema CBC, BMP 12/17/16 05:30 12/17/16 05:30 12/17/16 12/17/16 12/17/16 05:30 05:30 05:56 WBC 14.6 H RBC 4.13 Hgb 11.0 Hct 33.5 MCV 81.1 MCH 26.6 MCHC 32.8 RDW 17.2 H Plt Count 202 MPV 8.2 Neutrophils % Y Lymphocytes % Y Sodium 134 L Potassium 5.3 H Chloride 94 L Carbon Dioxide 30 Anion Gap 10 BUN 27 H Creatinine 1.1 H D Creat Clearance w eGFR 49.85 POC Glucometer [phone] Random Glucose 276 H D Calcium 8.7 Phosphorus 3.1 Magnesium 2.3 Total Bilirubin 0.6 AST 31 D ALT 38 Alkaline Phosphatase 95 Total Protein 5.8 L Albumin 2.6 L Microbiology 12/15/16 00:27 Blood - Peripheral Venous Blood Culture - Preliminary NO GROWTH OBTAINED AFTER 48 HOURS, INCUBATION TO CONTINUE FOR 3 DAYS. 12/15/16 00:27 Blood - Peripheral Venous Blood Culture - Preliminary NO GROWTH OBTAINED AFTER 48 HOURS, INCUBATION TO CONTINUE FOR 3 DAYS. 12/15/16 00:27 Urine - Urine - Catheterized Urine Culture - Final NO GROWTH OBTAINED Active Medications Aclidinium [place] (Tudorza -) 1 puff IH BID [facility] Last Admin: 12/16/16 21:17 Dose: 1 puff Albuterol Sulfate (Ventolin 0.5% -) 1 amp NEB QIDR [facility] Last Admin: 12/17/16 05:00 Dose: 1 amp Albuterol Sulfate (Ventolin Hfa Inhaler -) 2 puff IH Q6H PRN PRN Reason: WHEEZING Alprazolam (Xanax -) 0.5 mg PO Q8H PRN PRN Reason: ANXIETY Last Admin: 12/17/16 06:34 Dose: 0.5 mg Artificial Tears (Artificial Tears) 1 drop OU QID PRN PRN Reason: DRY EYES Aspirin (Asa -) 81 mg PO DAILY [facility] Last Admin: 12/16/16 09:44 Dose: 81 mg Budesonide/Formoterol Fumarate (Symbicort 160/4.5mcg -) 2 puff IH BID [facility] Last Admin: 12/16/16 21:18 Dose: 2 puff Enoxaparin Sodium (Lovenox -) 80 mg SQ BID [facility] Last Admin: 12/16/16 21:16 Dose: 80 mg Furosemide (Lasix Injection -) 20 mg IVPUSH BID@0600,1400 [facility] Last Admin: 12/17/16 06:03 Dose: 20 mg Famotidine/Sodium Chloride (Pepcid 20 Mg Premixed Ivpb -) 50 mls @ 100 mls/hr IVPB BID [facility] Last Admin: 12/16/16 21:15 Dose: 100 mls/hr Insulin Aspart (Novolog Vial Sliding Scale -) 1 vial SQ Q6HPO [facility] PRN Reason: Protocol Last Admin: 12/17/16 06:05 Dose: 6 units Insulin Detemir (Levemir Vial) 10 units SQ BIDI [facility] Last Admin: 12/17/16 06:06 Dose: 10 units Levothyroxine Sodium (Synthroid -) 100 mcg PO DAILY@0700 [facility] Last Admin: 12/17/16 06:03 Dose: 100 mcg Methylprednisolone Sodium Succinate (Solu-Medrol -) 40 mg IVPB Q8H-IV [facility] Last Admin: 12/17/16 01:10 Dose: 40 mg Montelukast Sodium (Singulair -) 10 mg PO HS [facility] Last Admin: 12/16/16 21:15 Dose: 10 mg Pt's Own Med: Prednisolone Opht Susp 1% 1 each OS QID [facility] Last Admin: 12/16/16 21:16 Dose: 1 each Pt's Own Med: Bromfenac Opht Kandace/0.09% 1 each OS DAILY [facility] Last Admin: 12/16/16 09:56 Dose: 1 each Pt's Own Med: Moxifloxacin Opht Kandace:0.5% 1 each OS QID [facility] Last Admin: 12/16/16 21:16 Dose: 1 each Ondansetron HCl (Zofran Injection) 4 mg IVPB Q6H PRN PRN Reason: NAUSEA Last Admin: 12/16/16 19:32 Dose: 4 mg Oxycodone HCl (Roxicodone -) 15 mg PO Q8H PRN PRN Reason: PAIN Last Admin: 12/17/16 06:34 Dose: 15 mg ASSESSMENT/PLAN: 66yo F with metastatic endometrial cancer with lung mets, NSTEMI (trop trended to peak, started on ASA & statin), and acute COPD exacerbation who has improving SOB. She presented with abdominal pain possibly 2/2 to partial SBO seen on CT. She is tolerating food with regular BMs. Per surgery may require hernia repair as outpatient, although high risk for any operative procedure. Patient is stable, and can be transferred to Telemetry. #NSTEMI -Cardiology following -ECHO pending -ASA 81mg daily -Atorvastatin 40mg PO HS #Pulm -Continue bronchodilators standing and PRN -Methylprednisolone 40mg IVPB changed to Q12H -maintain SpO2 >90% #Renal -Continue Lasix IV 20mg daily -Kayexalate 30gm PO once for hyperK #Oncology -morphine 15mg PO PRN q8 -continue home tamoxifen 20mg BID #GI -Monitor bowel function -Zofran prn for nausea #Endocrine -10U levemir BID -BGM ACHS -Insulin sliding scale #FEN -IVF held -Monitory daily lytes -Diabetic diet #PPX -DVT ppx - lovenox 80mg BID -GI ppx - famotidine 20mg IVPB bid d/w Dr. Harley Barksdale, PGY-1 Visit type - Emergency Visit Emergency Visit: No - New Patient This patient is new to me today: No - Critical Care Critical Care patient: Yes Total Critical Care Time (in minutes): 40 Critical Care Statement: The care of this patient involved high complexity decision making to prevent further life threatening deterioration of the patient 's condition and/or to evaluate & treat vital organ system(s) failure or risk of failure.
[2016-12-17 08:39] LABS: PLATELET COMMENT2 NO CLOTTING DETECTED; PLATELET COMMENT3 FEW LARGE PLTS; PLATELET ESTIMATE ADEQUATE (NORMAL); TOTAL CELLS COUNTED 100
[2016-12-17 08:40] LABS: METAMYELOCYTE 1 % (0-2)
[2016-12-17 08:41] LABS: SMUDGE CELLS FEW
--- NOTE | 2016-12-17 10:12 | PN ---
Progress Note (short form) - Note Progress Note: Patient is feeling better, less cough and less wheezing, no chest pain. Vital Signs Temperature 98.7 F 12/17/16 08:00 Pulse Rate 106 H 12/17/16 10:06 Respiratory Rate 24 12/17/16 08:00 Blood Pressure 149/77 12/17/16 08:00 O2 Sat by Pulse Oximetry (%) 100 12/17/16 10:06 GENERAL: has cushinoid appearance, No further hemoptysis. HEAD: Normal with no signs of trauma. alvarado facies EYES: Pupils equal, round and reactive to light, extraocular movements intact, sclera anicteric, conjunctiva clear. EARS, NOSE, THROAT: Ears normal, oropharynx clear without exudates. Moist mucous membranes. positive for NC NECK: Normal range of motion, supple ,no JVD. LUNGS: Decreased BS BL , positive for wheezing less than yesterday HEART:mild tachycardia, S1 S2 positive, MANUEL 2/6. no rub or gallop. ABDOMEN: soft, positive foe NG-tube, with diffuse tenderness, no rebound tenderness, no guarding, + central adiposity EXTREMITIES: 2+ b/l LE pitting edema. right foot has amputations of 3rd, 4th, and 5th toes. UE; pulses are positive NEUROLOGICAL: Cranial nerves II-XII intact. language is normal SKIN: Warm, dry, normal turgor, no rashes or lesions noted, normal capillary refill. CBCD WBC 14.6 K/mm3 (4.0-10.0) H 12/17/16 05:30 RBC 4.13 M/mm3 (3.60-5.2) 12/17/16 05:30 Hgb 11.0 GM/dL (10.7-15.3) 12/17/16 05:30 Hct 33.5 % (32.4-45.2) 12/17/16 05:30 MCV 81.1 fl (80-96) 12/17/16 05:30 MCHC 32.8 g/dl (32.0-36.0) 12/17/16 05:30 RDW 17.2 % (11.6-15.6) H 12/17/16 05:30 Plt Count 202 K/MM3 (134-434) 12/17/16 05:30 MPV 8.2 fl (7.5-11.1) 12/17/16 05:30 CMP Sodium 134 mmol/L (136-145) L 12/17/16 05:30 Potassium 5.3 mmol/L (3.5-5.1) H 12/17/16 05:30 Chloride 94 mmol/L (98-107) L 12/17/16 05:30 Carbon Dioxide 30 mmol/L (21-32) 12/17/16 05:30 Anion Gap 10 (8-16) 12/17/16 05:30 BUN 27 mg/dL (7-18) H 12/17/16 05:30 Creatinine 1.1 mg/dL (0.55-1.02) H D 12/17/16 05:30 Creat Clearance w eGFR 49.85 (>60) 12/17/16 05:30 Random Glucose 276 mg/dL (74-106) H D 12/17/16 05:30 Calcium 8.7 mg/dL (8.5-10.1) 12/17/16 05:30 Total Bilirubin 0.6 mg/dL (0.2-1.0) 12/17/16 05:30 AST 31 U/L (15-37) D 12/17/16 05:30 ALT 38 U/L (12-78) 12/17/16 05:30 Alkaline Phosphatase 95 U/L (45-117) 12/17/16 05:30 Total Protein 5.8 g/dl (6.4-8.2) L 12/17/16 05:30 Albumin 2.6 g/dl (3.4-5.0) L 12/17/16 05:30 CARDIAC ENZYMES Creatine Kinase 165 IU/L (26-192) 12/15/16 11:45 Troponin I 4.31 ng/ml (0.00-0.05) H* 12/15/16 11:45 Current Medications Generic Name Dose Route Start Last Admin Trade Name Freq PRN Reason Stop Dose Admin Aclidinium [place] 1 puff 12/15/16 22:00 12/16/16 21:17 Tudorza - IH 1 puff BID [facility] Administration Albuterol Sulfate 1 amp 12/15/16 18:00 12/17/16 05:00 Ventolin 0.5% - NEB 1 amp QIDR [facility] Administration Albuterol Sulfate 2 puff 12/15/16 14:40 Ventolin Hfa Inhaler - IH Q6H PRN WHEEZING Alprazolam 0.5 mg 12/15/16 17:42 12/17/16 06:34 Xanax - PO 0.5 mg Q8H PRN Administration ANXIETY Artificial Tears 1 drop 12/15/16 12:53 Artificial Tears OU QID PRN DRY EYES Aspirin 81 mg 12/16/16 10:00 12/16/16 09:44 Asa - PO 81 mg DAILY [facility] Administration Atorvastatin Calcium 40 mg 12/17/16 22:00 Lipitor - PO HS [facility] Budesonide/Formoterol Fumarate 2 puff 12/15/16 22:00 12/16/16 21:18 Symbicort 160/4.5mcg - IH 2 puff BID [facility] Administration Enoxaparin Sodium 80 mg 12/15/16 22:00 12/16/16 21:16 Lovenox - SQ 80 mg BID [facility] Administration Furosemide 20 mg 12/17/16 06:00 12/17/16 06:03 Lasix Injection - IVPUSH 20 mg BID@0600,1400 [facility] Administration Famotidine/Sodium Chloride 50 mls @ 100 mls/hr 12/15/16 13:00 12/16/16 21:15 Pepcid 20 Mg Premixed Ivpb - IVPB 100 mls/hr BID [facility] Administration Insulin Aspart 1 vial 12/15/16 18:00 12/17/16 06:05 Novolog Vial Sliding Scale - SQ 6 units Q6HPO [facility] Administration Protocol Insulin Detemir 10 units 12/15/16 12:48 12/17/16 06:06 Levemir Vial SQ 10 units BIDI [facility] Administration Levothyroxine Sodium 100 mcg 12/16/16 07:00 12/17/16 06:03 Synthroid - PO 100 mcg DAILY@0700 [facility] Administration Methylprednisolone Sodium Succinate 40 mg 12/15/16 13:00 12/17/16 01:10 Solu-Medrol - IVPB 40 mg Q8H-IV [facility] Administration Montelukast Sodium 10 mg 12/15/16 22:00 12/16/16 21:15 Singulair - PO 10 mg HS [facility] Administration Pt's Own Med: 1 each 12/15/16 22:00 12/16/16 21:16 Prednisolone Opht OS 1 each Susp 1% QID [facility] Administration Pt's Own Med: 1 each 12/16/16 10:00 12/16/16 09:56 Bromfenac Opht Kandace/ OS 1 each 0.09% DAILY [facility] Administration Pt's Own Med: 1 each 12/15/16 22:00 12/16/16 21:16 Moxifloxacin Opht OS 1 each Kandace:0.5% QID [facility] Administration Ondansetron HCl 4 mg 12/15/16 14:40 12/16/16 19:32 Zofran Injection IVPB 4 mg Q6H PRN Administration NAUSEA Oxycodone HCl 15 mg 12/16/16 14:57 12/17/16 06:34 Roxicodone - PO 15 mg Q8H PRN Administration PAIN Home Medications Medication Instructions Recorded Albuterol Sulfate Inhaler - 2 inh PO Q6H 11/21/16 [Ventolin HFA Inhaler -] Clotrimazole [Mycelex -] 10 mg PO 5XD 11/21/16 Furosemide [Lasix] 40 mg PO DAILY 11/21/16 Insulin (Novolog) [Novolog Flexpen See Protocol SQ TID 11/21/16 -] Insulin Glargine,Hum.rec.anlog 40 units SQ BID 11/21/16 [Lantus Solostar PEN -] Levothyroxine [Synthroid -] 100 mcg PO DAILY 11/21/16 Losartan Potassium 50 mg PO BID 11/21/16 Megestrol Acetate 80 mg PO BID 11/21/16 Montelukast Na [Singulair -] 1 tab HS 11/21/16 Ondansetron HCl [Zofran] 4 mg PO BID 11/21/16 Ranitidine HCl [Zantac] 300 mg PO HS 11/21/16 Tamoxifen Citrate 20 mg PO BID 11/21/16 Alprazolam [Xanax] 0.5 mg PO TID PRN 11/23/16 Oxycodone HCl [Roxicodone] 15 mg PO TID PRN 11/23/16 Acetaminophen [Tylenol .Regular 650 mg PO Q6H PRN #0 tablet 11/27/16 Strength -] Albuterol Sulfate 0.5% [Ventolin 1 amp NEB QIDR amp 11/27/16 0.5% Nebulizing Soln. -] Aspirin [ASA -] 81 mg PO DAILY tab.chew 11/27/16 Atorvastatin Ca [Lipitor] 10 mg PO HS tablet 11/27/16 Budesonide/Formeterol Fumarate 2 puff IH BID inhaler 11/27/16 [SYMBICORT 160/4.5mcg -] Cholecalciferol (Vitamin D3) 1,000 unit PO Q7D tab 11/27/16 [Vitamin D -] Enoxaparin [Lovenox -] 120 mg SQ DAILY #30 dis.syr 11/27/16 Nystatin Powder 1 applic TP BID #0 bottle 11/27/16 Polyvinyl Alcohol [Artificial 1 drop OU QID PRN #1 bottle 11/27/16 Tears] Tiotropium [place] [Spiriva] 1 puff IH DAILY #1 inh 11/27/16 Prednisone [Deltasone -] 20 mg PO HS 12/10/16 Prednisone [Prednisone 50 MG 50 mg PO DAILY 12/10/16 TABLETS] CT A/P: left lower anterior abdominal wall hernia previously seen on prior images- chronic, + stool in colon ASSESSMENT AND PLAN: Patient is a 66F w/ hx of endometrial cancer w/ mets to lungs on tamoxifen, asthma, diastolic CHF, IDDM, DVT, HTN, HLD, hypothyroidism, s/p L eye cataract surgery several days ago presenting with abdominal pain, found to have NSTEMI #NSTEMI :No chest pain, troponin I of 6.77--5.3-->4.31 trended down, discussed with wearing apparel assembler . continue lovenox 80mg sq bid, patient has no longer hemoptysis , patient has hx of Lung Ca with Severe COPD continue to be in ICU. Laminating Machine Tender on the case, continue Aspirin, lipitor continue. #abdominal pain resolved ; lactic acid of 3.1--> 1.6, surgical consult appreciated , hernia repair as an outpatient but patient is a high risk patient. #SARAH creatinine of 1.5 -->0.9-->1.1 now resolved ;lasix 20mg IV bid, hold losartan for now since elevated potassium, monitor cr/potassium #hX OF sEVERE COPD, AND lUNG CA continue meds, nebs. #H xof Uterine cancer continue home tamoxifen 20 BID ;palliative care team consulted, pt has poor prognosis #Acute leukocytosis improving likely due to prednisone; f/u blood cx, urine cx #IDDM , will cut further to 10 of levemir BID since NPO and having episodes of Low blood sugar; SSI #HLD was given high dose atorvastatin 80mg , was on 10mg at home, will continue with 40mg daily LDL 115 #Hypothyroid continued home dose of levothyroxine #asthma 2L O2 via NC; continue budesonide/formeterol BID, montelukast 10mg HS, ventolin, albuterol PRN DVt px: Lovenox Visit type - Emergency Visit Emergency Visit: Yes ED Registration Date: 12/15/16 Care time: The patient presented to the Emergency Department on the above date and was hospitalized for further evaluation of their emergent condition. - New Patient This patient is new to me today: No - Critical Care Critical Care patient: No
[2016-12-17] MEDS: ASPIRIN 81 MG CHEWABLE TABLETS PO SCH (10:35)
[2016-12-17] MEDS: FAMOTIDINE 20 MG/50 ML IVPB 50 ML IVPB SCH ×2 (10:37→21:09)
[2016-12-17] MEDS: BUDESONIDE/FORMETEROL FUMARATE 160/4.5 mcg INHALER IH SCH ×2 (10:38→21:10)
[2016-12-17] MEDS: ACLIDINIUM BROMIDE 400 MCG/INH AERO.POWD IH SCH ×2 (10:39→21:13)
[2016-12-17] MEDS: PREDNISOLONE 1% OS SCH ×4 (10:41→21:12)
[2016-12-17] MEDS: MOXIFLOXACIN OS SCH ×4 (10:41→21:12)
[2016-12-17] MEDS: BROMFENAC OS SCH (10:42)
[2016-12-17] MEDS ORDERED: ALBUTEROL SO4 0.083% IH SOL 2.5 MG/3 ML VIAL.NEB. NEB ONE ×3 (10:58→23:09)
--- NOTE | 2016-12-17 11:24 | PN ---
Progress Note, Physician Chief Complaint: Patient seen in ICU, currently awake and alert. Complains of shortness of breath with productive cough, but improving Receiving nebulizer treatment History of Present Illness: Patient was seen and examined. Chart was reviewed Denies chest pain or palpitations Sinus tachycardia Pedal edema persists - Current Medication List Current Medications: Active Medications Aclidinium [place] (Tudorza -) 1 puff IH BID [facility] Last Admin: 12/17/16 10:39 Dose: 1 puff Albuterol Sulfate (Ventolin 0.5% -) 1 amp NEB QIDR [facility] Last Admin: 12/17/16 11:05 Dose: 1 amp Albuterol Sulfate (Ventolin Hfa Inhaler -) 2 puff IH Q6H PRN PRN Reason: WHEEZING Alprazolam (Xanax -) 0.5 mg PO Q8H PRN PRN Reason: ANXIETY Last Admin: 12/17/16 06:34 Dose: 0.5 mg Artificial Tears (Artificial Tears) 1 drop OU QID PRN PRN Reason: DRY EYES Aspirin (Asa -) 81 mg PO DAILY [facility] Last Admin: 12/17/16 10:35 Dose: 81 mg Atorvastatin Calcium (Lipitor -) 40 mg PO HS [facility] Budesonide/Formoterol Fumarate (Symbicort 160/4.5mcg -) 2 puff IH BID [facility] Last Admin: 12/17/16 10:38 Dose: 1 puff Clotrimazole (Mycelex Larry[place] -) 10 mg PO 5XD [facility] Enoxaparin Sodium (Lovenox -) 80 mg SQ BID [facility] Last Admin: 12/16/16 21:16 Dose: 80 mg Furosemide (Lasix Injection -) 20 mg IVPUSH BID@0600,1400 [facility] Last Admin: 12/17/16 06:03 Dose: 20 mg Famotidine/Sodium Chloride (Pepcid 20 Mg Premixed Ivpb -) 50 mls @ 100 mls/hr IVPB BID [facility] Last Admin: 12/17/16 10:37 Dose: 100 mls/hr Insulin Aspart (Novolog Vial Sliding Scale -) 1 vial SQ Q6HPO [facility] PRN Reason: Protocol Last Admin: 12/17/16 06:05 Dose: 6 units Insulin Detemir (Levemir Vial) 10 units SQ BIDI [facility] Last Admin: 12/17/16 06:06 Dose: 10 units Levothyroxine Sodium (Synthroid -) 100 mcg PO DAILY@0700 [facility] Last Admin: 12/17/16 06:03 Dose: 100 mcg Methylprednisolone Sodium Succinate (Solu-Medrol -) 40 mg IVPB Q8H-IV [facility] Last Admin: 12/17/16 10:37 Dose: 40 mg Montelukast Sodium (Singulair -) 10 mg PO HS [facility] Last Admin: 12/16/16 21:15 Dose: 10 mg Pt's Own Med: Prednisolone Opht Susp 1% 1 each OS QID [facility] Last Admin: 12/17/16 10:41 Dose: 1 each Pt's Own Med: Bromfenac Opht Kandace/0.09% 1 each OS DAILY [facility] Last Admin: 12/17/16 10:42 Dose: 1 each Pt's Own Med: Moxifloxacin Opht Kandace:0.5% 1 each OS QID [facility] Last Admin: 12/17/16 10:41 Dose: 1 each Non-Formulary Medication (Nystatin Powder) 1 applic TP BID [facility] Ondansetron HCl (Zofran Injection) 4 mg IVPB Q6H PRN PRN Reason: NAUSEA Last Admin: 12/16/16 19:32 Dose: 4 mg Oxycodone HCl (Roxicodone -) 15 mg PO Q8H PRN PRN Reason: PAIN Last Admin: 12/17/16 06:34 Dose: 15 mg Tamoxifen Citrate (Tamoxifen Citrate) 20 mg PO BID [facility] - Objective Vital Signs: Vital Signs Temperature 98.7 F 12/17/16 10:00 Pulse Rate 106 H 12/17/16 10:06 Respiratory Rate 14 12/17/16 10:00 Blood Pressure 122/49 12/17/16 10:00 O2 Sat by Pulse Oximetry (%) 100 12/17/16 10:06 Neck: Yes: Supple Cardiovascular: Yes: Regular Rate and Rhythm, Tachycardia, S1, S2 Respiratory: Yes: Diminished, Wheezes Gastrointestinal: Yes: Normal Bowel Sounds, Soft, Abdomen, Obese. No: Tenderness Edema: Yes Edema: LLE: 1+, RLE: 1+ Additional Findings/Remarks: - Review of Systems Constitutional: denies: Chills, Fever Cardiovascular: reports: Shortness of Breath denies: Chest Pain, Palpitations Respiratory: reports: SOB denies: Orthopnea, PND Gastrointestinal: denies: Abdominal Pain, Constipation, Diarrhea, Melena, Nausea , Rectal Bleeding, Vomiting Neurological: reports: Weakness. denies: Dizziness, Headache, Seizure, Syncope Labs: CBC, BMP 12/17/16 05:30 12/17/16 05:30 INR, PTT INR 0.95 (0.82-1.09) 12/15/16 00:27 Problem List - Problems (1) Abdominal pain Code(s): R10.9 - UNSPECIFIED ABDOMINAL PAIN Qualifiers: Abdominal location: unspecified location Qualified Code(s): R10.9 - Unspecified abdominal pain (2) NSTEMI (non-ST elevated myocardial infarction) Code(s): I21.4 - NON-ST ELEVATION (NSTEMI) MYOCARDIAL INFARCTION (3) Cervical carcinoma Code(s): C53.9 - MALIGNANT NEOPLASM OF CERVIX UTERI, UNSPECIFIED (4) Diabetes Code(s): E11.9 - TYPE 2 DIABETES MELLITUS WITHOUT COMPLICATIONS Qualifiers: Diabetes mellitus type: type 2 Diabetes mellitus complication status: without complication (5) Endometrial cancer Code(s): C54.1 - MALIGNANT NEOPLASM OF ENDOMETRIUM (6) Hyperlipidemia Code(s): E78.5 - HYPERLIPIDEMIA, UNSPECIFIED Qualifiers: Hyperlipidemia type: unspecified Qualified Code(s): E78.5 - Hyperlipidemia, unspecified (7) Hypertension Code(s): I10 - ESSENTIAL (PRIMARY) HYPERTENSION Qualifiers: Hypertension type: essential hypertension Qualified Code(s): I10 - Essential (primary) hypertension (8) Hypothyroidism Code(s): E03.9 - HYPOTHYROIDISM, UNSPECIFIED Qualifiers: Hypothyroidism type: unspecified Qualified Code(s): E03.9 - Hypothyroidism, unspecified (9) Metastasis to lung Code(s): C78.00 - SECONDARY MALIGNANT NEOPLASM OF UNSPECIFIED LUNG (10) Obesity Code(s): E66.9 - OBESITY, UNSPECIFIED Assessment/Plan 1. Elevated troponin c/w NSTEMI, underlying CAD - trending down 2. 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 Hypertension 4. IDDM 5. Abdominal pain, etiology to be determined, probable impacted stool 6. COPD 7. RBBB PLAN: 1. Trend troponin 2. Currently on Lovenox 80 mg SQ BID 3. ASA as tolerated 4. Transthoracic echocardiography to assess LV/RV and valvular function 5. Further recommendation regarding cardiac meds to follow 6. In view of multiple co-morbidities, would treat conservatively and optimize cardiac therapy Further plans are to follow. Janet Moise MD
[2016-12-17] MEDS ORDERED: SODIUM POLYSTYRENE SULFONATE 15 GM/60 ML BOTTLE PO ONE ×2 (11:27→12:30)
--- NOTE | 2016-12-17 11:36 | PN ---
Teaching Attending Note Name of Resident: Cindy Barksdale ATTENDING PHYSICIAN STATEMENT I saw and evaluated the patient. I reviewed the resident's note and discussed the case with the resident. I agree with the resident's findings and plan as documented. SUBJECTIVE: Pt seen and examined in the ICU. Breathing better today, still with cough productive with bloody streaks. No fevers or chills. Denies chest pain. OBJECTIVE: Last Vital Signs Temp Pulse Resp BP Pulse Ox 98.7 F 106 H 14 122/49 100 12/17/16 10:00 12/17/16 10:06 12/17/16 10:00 12/17/16 10:00 12/17/16 10:06 Intake & Output 12/14/16 12/15/16 12/16/16 12/17/16 23:59 23:59 23:59 23:59 Intake Total 1260 1390 400 Output Total 500 900 900 Balance 760 490 -500 Weight 190 lb 195 lb 5.273 oz 194 lb 0.108 oz 195 lb 1.745 oz Gen: NAD at rest Heart: tachycardic, regular Lung: scattered rhonchi, wheezes but less Abd: soft, nontender Ext: + edema CBC, BMP 12/17/16 05:30 12/17/16 05:30 Active Medications Aclidinium [place] (Tudorza -) 1 puff IH BID [facility] Last Admin: 12/17/16 10:39 Dose: 1 puff Albuterol Sulfate (Ventolin 0.5% -) 1 amp NEB QIDR [facility] Last Admin: 12/17/16 11:05 Dose: 1 amp Albuterol Sulfate (Ventolin Hfa Inhaler -) 2 puff IH Q6H PRN PRN Reason: WHEEZING Alprazolam (Xanax -) 0.5 mg PO Q8H PRN PRN Reason: ANXIETY Last Admin: 12/17/16 06:34 Dose: 0.5 mg Artificial Tears (Artificial Tears) 1 drop OU QID PRN PRN Reason: DRY EYES Aspirin (Asa -) 81 mg PO DAILY [facility] Last Admin: 12/17/16 10:35 Dose: 81 mg Atorvastatin Calcium (Lipitor -) 40 mg PO [facility] Budesonide/Formoterol Fumarate (Symbicort 160/4.5mcg -) 2 puff IH BID [facility] Last Admin: 12/17/16 10:38 Dose: 1 puff Clotrimazole (Mycelex Larry's -) 10 mg PO 5XD [facility] Enoxaparin Sodium (Lovenox -) 80 mg SQ BID [facility] Last Admin: 12/16/16 21:16 Dose: 80 mg Furosemide (Lasix Injection -) 20 mg IVPUSH BID@0600,1400 [facility] Last Admin: 12/17/16 06:03 Dose: 20 mg Famotidine/Sodium Chloride (Pepcid 20 Mg Premixed Ivpb -) 50 mls @ 100 mls/hr IVPB BID [facility] Last Admin: 12/17/16 10:37 Dose: 100 mls/hr Insulin Aspart (Novolog Vial Sliding Scale -) 1 vial SQ ACHS [facility] PRN Reason: Protocol Insulin Detemir (Levemir Vial) 10 units SQ BIDI [facility] Last Admin: 12/17/16 06:06 Dose: 10 units Levothyroxine Sodium (Synthroid -) 100 mcg PO DAILY@0700 [facility] Last Admin: 12/17/16 06:03 Dose: 100 mcg Methylprednisolone Sodium Succinate (Solu-Medrol -) 40 mg IVPB Q12H [facility] Montelukast Sodium (Singulair -) 10 mg PO HS [facility] Last Admin: 12/16/16 21:15 Dose: 10 mg Pt's Own Med: Prednisolone Opht Susp 1% 1 each OS QID [facility] Last Admin: 12/17/16 10:41 Dose: 1 each Pt's Own Med: Bromfenac Opht Kandace/0.09% 1 each OS DAILY [facility] Last Admin: 12/17/16 10:42 Dose: 1 each Pt's Own Med: Moxifloxacin Opht Kandace:0.5% 1 each OS QID [facility] Last Admin: 12/17/16 10:41 Dose: 1 each Non-Formulary Medication (Nystatin Powder) 1 applic TP BID [facility] Ondansetron HCl (Zofran Injection) 4 mg IVPB Q6H PRN PRN Reason: NAUSEA Last Admin: 12/16/16 19:32 Dose: 4 mg Oxycodone HCl (Roxicodone -) 15 mg PO Q8H PRN PRN Reason: PAIN Last Admin: 12/17/16 06:34 Dose: 15 mg Sodium Polystyrene Sulfonate (Kayexalate -) 15 gm PO ONCE ONE Stop: 12/17/16 11:28 Tamoxifen Citrate (Tamoxifen Citrate) 20 mg PO BID [facility] ASSESSMENT AND PLAN: Metastatic Cervical Ca with Lung Mets Acute COPD Exacerbation Acute NSTEMI Partial Small Bowel Obstruction HTN DM h/o DVT - can decrease medrol to q12h - inhaled bronchodilators standing and PRN - O2 to keep Spo2 >90% - ASA - continue anticoagulation - echocardiogram - glucose control while systemic steroids - monitor bowel function - can monitor on telemetry
[2016-12-17] MEDS: ENOXAPARIN NA (PORCINE) 80 MG/0.8 ML DISP.SYRIN SQ SCH ×2 (12:16→21:09)
[2016-12-17] MEDS: ONDANSETRON 4 MG/2 ML VIAL IVPB PRN (12:46)
[2016-12-17 13:54] LABS: TROPONIN I 1.4 ng/ml (0.00-0.05)
[2016-12-17] MEDS ORDERED: VASOPRESSIN 20 UNITS/ML VIAL IV ONE (14:35)
[2016-12-17] MEDS ORDERED: PT OWN MED DRAWER 7, Y5N ONE ×2 (15:53→21:06)
[2016-12-17] MEDS ORDERED: SODIUM POLYSTYRENE SULFONATE 15 GM/60 ML BOTTLE ONE (16:28)
[2016-12-17] MEDS: CLOTRIMAZOLE 10 MG TROCHE (FP) PO SCH ×3 (16:28→21:16)
[2016-12-17] MEDS: TAMOXIFEN CITRATE 10 MG TABLET PO SCH ×2 (16:29→21:16)
[2016-12-17] MEDS ORDERED: INSULIN DETEMIR 100 UNITS/ML MDV SQ ONE (17:12)
[2016-12-17] MEDS: MONTELUKAST NA 10 MG TABLET PO SCH (21:10)
[2016-12-17] MEDS: ATORVASTATIN CA 40 MG TABLET (FP) PO SCH (21:10)
[2016-12-17] MEDS: NYSTATIN POWDER 100,000 UNITS/GM - 15 GM TOPICAL POWDER TP SCH (21:12)
[2016-12-18] MEDS ORDERED: ALBUTEROL SO4 0.083% IH SOL 2.5 MG/3 ML VIAL.NEB. NEB ONE ×2 (05:31→22:27)
[2016-12-18 06:14] LABS: MCH 26.4 pg (25.7-33.7); MCHC 32.7 g/dl (32.0-36.0); MEAN CELL VOLUME 80.8 fl (80-96); MEAN PLT VOLUME 8.3 fl (7.5-11.1); PLATELET COUNT 206 K/MM3 (134-434); RDW 16.8 % (11.6-15.6); WHITE BLOOD COUNT 12.7 K/mm3 (4.0-10.0)
[2016-12-18] MEDS: FUROSEMIDE 40 MG/4 ML INJECTABLE VIAL IVPUSH SCH ×2 (06:26→13:58)
[2016-12-18] MEDS: CLOTRIMAZOLE 10 MG TROCHE (FP) PO SCH ×5 (06:27→22:49)
[2016-12-18] MEDS: LEVOTHYROXINE NA 100 MCG TABLET (FP) PO SCH (06:27)
[2016-12-18] MEDS: ALBUTEROL SO4 0.5 % INH SOLN 2.5 MG/0.5 ML VIAL.NEB. NEB SCH ×4 (06:30→18:30)
[2016-12-18] MEDS: INSULIN SLIDING SCALE (NOVOLOG) 1 VIAL SQ SCH ×4 (06:39→23:49)
[2016-12-18] MEDS: INSULIN DETEMIR 100 UNITS/ML MDV SQ SCH ×2 (06:39→18:07)
[2016-12-18] MEDS: oxyCODONE HCL 5 MG TABLET PO PRN ×3 (07:00→22:02)
[2016-12-18] MEDS: ALPRAZolam 0.25 MG TABLET PO PRN ×2 (07:00→13:58)
--- NOTE | 2016-12-18 08:38 | PN ---
Progress Note (short form) - Note Progress Note: Chief Complaint: Events noted, notes reviewed, sitting in bed continues to report persistent dyspnea, denies any chest pain History of Present Illness: Seen and examined in the ICU. Events noted, notes reviewed, sitting in bed continues to report persistent dyspnea, denies any chest pain Sinus tachycardia is persistent - Current Medication List Current Medications Aclidinium [place] (Tudorza -) 1 puff IH BID [facility] Last Admin: 12/17/16 21:13 Dose: 1 puff Albuterol Sulfate (Ventolin 0.5% -) 1 amp NEB QIDR [facility] Last Admin: 12/18/16 06:30 Dose: 1 amp Albuterol Sulfate (Ventolin Hfa Inhaler -) 2 puff IH Q6H PRN PRN Reason: WHEEZING Alprazolam (Xanax -) 0.5 mg PO Q8H PRN PRN Reason: ANXIETY Last Admin: 12/17/16 21:22 Dose: 0.5 mg Artificial Tears (Artificial Tears) 1 drop OU QID PRN PRN Reason: DRY EYES Aspirin (Asa -) 81 mg PO DAILY [facility] Last Admin: 12/17/16 10:35 Dose: 81 mg Atorvastatin Calcium (Lipitor -) 40 mg PO HS [facility] Last Admin: 12/17/16 21:10 Dose: 40 mg Budesonide/Formoterol Fumarate (Symbicort 160/4.5mcg -) 2 puff IH BID [facility] Last Admin: 12/17/16 21:10 Dose: 2 puff Clotrimazole (Mycelex Larry's -) 10 mg PO 5XD [facility] Last Admin: 12/18/16 06:27 Dose: 10 mg Enoxaparin Sodium (Lovenox -) 80 mg SQ BID [facility] Last Admin: 12/17/16 21:09 Dose: 80 mg Furosemide (Lasix Injection -) 20 mg IVPUSH BID@0600,1400 [facility] Last Admin: 12/18/16 06:26 Dose: 20 mg Famotidine/Sodium Chloride (Pepcid 20 Mg Premixed Ivpb -) 50 mls @ 100 mls/hr IVPB BID [facility] Last Admin: 12/17/16 21:09 Dose: 100 mls/hr Insulin Aspart (Novolog Vial Sliding Scale -) 1 vial SQ ACHS [facility] PRN Reason: Protocol Last Admin: 12/18/16 06:39 Dose: 4 units Insulin Detemir (Levemir Vial) 10 units SQ BIDI [facility] Last Admin: 12/18/16 06:39 Dose: 10 units Levothyroxine Sodium (Synthroid -) 100 mcg PO DAILY@0700 [facility] Last Admin: 12/18/16 06:27 Dose: 100 mcg Methylprednisolone Sodium Succinate (Solu-Medrol -) 40 mg IVPB BID [facility] Last Admin: 12/17/16 21:10 Dose: 40 mg Montelukast Sodium (Singulair -) 10 mg PO HS [facility] Last Admin: 12/17/16 21:10 Dose: 10 mg Pt's Own Med: Prednisolone Opht Susp 1% 1 each OS QID [facility] Last Admin: 12/17/16 21:12 Dose: 1 each Pt's Own Med: Bromfenac Opht Kandace/0.09% 1 each OS DAILY [facility] Last Admin: 12/17/16 10:42 Dose: 1 each Pt's Own Med: Moxifloxacin Opht Kandace:0.5% 1 each OS QID [facility] Last Admin: 12/17/16 21:12 Dose: 1 each Nystatin (Nystop Powder -) 1 applic TP BID [facility] Last Admin: 12/17/16 21:12 Dose: 1 applic Ondansetron HCl (Zofran Injection) 4 mg IVPB Q6H PRN PRN Reason: NAUSEA Last Admin: 12/17/16 12:46 Dose: 4 mg Oxycodone HCl (Roxicodone -) 15 mg PO Q8H PRN PRN Reason: PAIN Last Admin: 12/17/16 21:22 Dose: 15 mg Tamoxifen Citrate (Tamoxifen Citrate) 20 mg PO BID [facility] Last Admin: 12/17/16 21:16 Dose: 20 mg - Objective Vital Signs: Last Vital Signs Temp Pulse Resp BP Pulse Ox 98.4 F 106 H 19 162/65 100 12/18/16 06:00 12/18/16 06:00 12/18/16 06:00 12/18/16 06:00 12/17/16 20:26 Intake & Output 12/15/16 12/16/16 12/17/16 12/18/16 23:59 23:59 23:59 23:59 Intake Total 1260 1390 1480 Output Total 373 504 7731 501 Balance 760 490 -1870 -501 Weight 195 lb 5.273 oz 194 lb 0.108 oz 195 lb 1.745 oz 194 lb 0.108 oz Neck: Supple Negative JVD No Bruit Cardiovascular: S1 S2 Regular Rate and Rhythm, Tachycardiac No Murmurs Respiratory: Diminished Breath Sounds at the Bases with Bilateral Scattered Rhonchi Gastrointestinal: Soft Benign Normal Bowel Sounds Ext: Edema Bilaterally Labs: CBC, BMP 12/18/16 05:00 12/18/16 05:00 Hepatic Panel Total Bilirubin 0.6 mg/dL (0.2-1.0) 12/17/16 05:30 AST 31 U/L (15-37) D 12/17/16 05:30 ALT 38 U/L (12-78) 12/17/16 05:30 Alkaline Phosphatase 95 U/L (45-117) 12/17/16 05:30 Albumin 2.6 g/dl (3.4-5.0) L 12/17/16 05:30 Troponin, BNP 12/17/16 11:55 Troponin I 1.40 H* Assessment/Plan ASSESSMENT: 1. CAD with evidence of NSTEMI/demand ischemic injury 2. Diastolic LV dysfunction with chronic class I NYHA classification LV congestive heart failure, resolving 3. Persistent sinus tachycardia 4. Hypertension 5. IDDM 6. COPD, exacerbation, resolving 7. 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 Abdominal pain, resolved PLAN: 1. Ideally B-Placido initiation is recommended unless it is absolutely contraindicated, attempt Bystolic 2. Continue ASA and Lovenox 3. Continue Lipitor 4. Continue Lasix 5. Await trans-thoracic echocardiography to assess LV/RV and valvular functions 6. As outlined in prior notes recommend conservative medical management considering co-morbidities Marcus Floyd M.D.
[2016-12-18 09:33] LABS: BILIRUBIN,TOTAL 0.6 mg/dL (0.2-1.0); TOT PROT 5.5 g/dl (6.4-8.2)
[2016-12-18 09:47] LABS: ALBUMIN 2.6 g/dl (3.4-5.0); ALK PHOS 93 U/L (45-117); ANION GAP 11 (8-16); CALCIUM 8.6 mg/dL (8.5-10.1); CO2 30 mmol/L (21-32); CREATININE 1.2 mg/dL (0.55-1.02); GLUCOSE,RANDOM 216 mg/dL (74-106); SGOT/AST 22 U/L (15-37); SGPT/ALT 32 U/L (12-78)
[2016-12-18] MEDS ORDERED: PT OWN MED DRAWER 7, Y5N ONE ×2 (10:49→21:25)
[2016-12-18] MEDS: ENOXAPARIN NA (PORCINE) 80 MG/0.8 ML DISP.SYRIN SQ SCH ×2 (10:59→21:35)
[2016-12-18] MEDS: PREDNISOLONE 1% OS SCH ×4 (11:00→21:48)
[2016-12-18] MEDS: NYSTATIN POWDER 100,000 UNITS/GM - 15 GM TOPICAL POWDER TP SCH ×3 (11:00→22:30)
[2016-12-18] MEDS: FAMOTIDINE 20 MG/50 ML IVPB 50 ML IVPB SCH ×2 (11:00→21:34)
[2016-12-18] MEDS: methylPREDNISolone NA SUCC 40 MG/1 ML VIAL IVPB SCH ×2 (11:00→21:43)
[2016-12-18] MEDS: BROMFENAC OS SCH (11:01)
[2016-12-18] MEDS: MOXIFLOXACIN OS SCH ×4 (11:01→21:48)
[2016-12-18] MEDS: BUDESONIDE/FORMETEROL FUMARATE 160/4.5 mcg INHALER IH SCH ×2 (11:02→21:43)
[2016-12-18] MEDS: ACLIDINIUM BROMIDE 400 MCG/INH AERO.POWD IH SCH ×2 (11:02→21:42)
[2016-12-18] MEDS: TAMOXIFEN CITRATE 10 MG TABLET PO SCH ×2 (11:02→22:49)
[2016-12-18] MEDS: ASPIRIN 81 MG CHEWABLE TABLETS PO SCH (11:15)
--- NOTE | 2016-12-18 12:01 | PN ---
Progress Note (short form) - Note Progress Note: No new events No pain +Flatus Vital Signs Period Temp Pulse Resp BP Sys/Encarnacion Pulse Ox Last 24 Hr 98.1 F-99.5 F 100-128 17-22 123-162/65-89 100-100 Abd soft CBC, BMP 12/18/16 05:00 12/18/16 05:00 Diet as tolerated Problem List - Problems (1) Abdominal pain Code(s): R10.9 - UNSPECIFIED ABDOMINAL PAIN Qualifiers: Abdominal location: unspecified location Qualified Code(s): R10.9 - Unspecified abdominal pain (2) NSTEMI (non-ST elevated myocardial infarction) Code(s): I21.4 - NON-ST ELEVATION (NSTEMI) MYOCARDIAL INFARCTION (3) Fecal impaction of colon Code(s): K56.41 - FECAL IMPACTION
--- NOTE | 2016-12-18 13:29 | PN ---
Teaching Attending Note Name of Resident: Cindy Barksdale ATTENDING PHYSICIAN STATEMENT I saw and evaluated the patient. I reviewed the resident's note and discussed the case with the resident. I agree with the resident's findings and plan as documented. SUBJECTIVE: Patient seen and examined in the ICU. Breathing feels a little better today. Still with productive cough with less bloody streaks. Denies chest pain. OBJECTIVE: Intake & Output 12/15/16 12/16/16 12/17/16 12/18/16 23:59 23:59 23:59 23:59 Intake Total 1260 1390 1480 Output Total 880 135 9576 501 Balance 760 490 -1870 -501 Weight 195 lb 5.273 oz 194 lb 0.108 oz 195 lb 1.745 oz 194 lb 0.108 oz Last Vital Signs Temp Pulse Resp BP Pulse Ox 98.8 F 114 H 19 123/66 100 12/18/16 10:00 12/18/16 10:00 12/18/16 10:00 12/18/16 10:00 12/17/16 20:26 Active Medications Aclidinium [place] (Tudorza -) 1 puff IH BID [facility] Last Admin: 12/18/16 11:02 Dose: 1 puff Albuterol Sulfate (Ventolin 0.5% -) 1 amp NEB QIDR [facility] Last Admin: 12/18/16 06:30 Dose: 1 amp Albuterol Sulfate (Ventolin Hfa Inhaler -) 2 puff IH Q6H PRN PRN Reason: WHEEZING Alprazolam (Xanax -) 0.5 mg PO Q8H PRN PRN Reason: ANXIETY Last Admin: 12/18/16 07:00 Dose: 0.5 mg Artificial Tears (Artificial Tears) 1 drop OU QID PRN PRN Reason: DRY EYES Aspirin (Asa -) 81 mg PO DAILY [facility] Last Admin: 12/17/16 10:35 Dose: 81 mg Atorvastatin Calcium (Lipitor -) 40 mg PO HS [facility] Last Admin: 12/17/16 21:10 Dose: 40 mg Budesonide/Formoterol Fumarate (Symbicort 160/4.5mcg -) 2 puff IH BID [facility] Last Admin: 12/18/16 11:02 Dose: 2 puff Clotrimazole (Mycelex Larry's -) 10 mg PO 5XD [facility] Last Admin: 12/18/16 11:01 Dose: 10 mg Enoxaparin Sodium (Lovenox -) 80 mg SQ BID [facility] Last Admin: 12/18/16 10:59 Dose: 80 mg Furosemide (Lasix Injection -) 20 mg IVPUSH BID@0600,1400 [facility] Last Admin: 12/18/16 06:26 Dose: 20 mg Famotidine/Sodium Chloride (Pepcid 20 Mg Premixed Ivpb -) 50 mls @ 100 mls/hr IVPB BID [facility] Last Admin: 12/18/16 11:00 Dose: 100 mls/hr Insulin Aspart (Novolog Vial Sliding Scale -) 1 vial SQ ACHS [facility] PRN Reason: Protocol Last Admin: 12/18/16 06:39 Dose: 4 units Insulin Detemir (Levemir Vial) 10 units SQ BIDI [facility] Last Admin: 12/18/16 06:39 Dose: 10 units Levothyroxine Sodium (Synthroid -) 100 mcg PO DAILY@0700 [facility] Last Admin: 12/18/16 06:27 Dose: 100 mcg Methylprednisolone Sodium Succinate (Solu-Medrol -) 40 mg IVPB BID [facility] Last Admin: 12/18/16 11:00 Dose: 40 mg Montelukast Sodium (Singulair -) 10 mg PO HS [facility] Last Admin: 12/17/16 21:10 Dose: 10 mg Nebivolol (Bystolic -) 5 mg PO DAILY [facility] Pt's Own Med: Prednisolone Opht Susp 1% 1 each OS QID [facility] Last Admin: 12/18/16 11:00 Dose: 1 each Pt's Own Med: Bromfenac Opht Kandace/0.09% 1 each OS DAILY [facility] Last Admin: 12/18/16 11:01 Dose: 1 each Pt's Own Med: Moxifloxacin Opht Kandace:0.5% 1 each OS QID [facility] Last Admin: 12/18/16 11:01 Dose: 1 each Nystatin (Nystop Powder -) 1 applic TP BID [facility] Last Admin: 12/18/16 11:00 Dose: 1 applic Ondansetron HCl (Zofran Injection) 4 mg IVPB Q6H PRN PRN Reason: NAUSEA Last Admin: 12/17/16 12:46 Dose: 4 mg Oxycodone HCl (Roxicodone -) 15 mg PO Q8H PRN PRN Reason: PAIN Last Admin: 12/18/16 07:00 Dose: 15 mg Tamoxifen Citrate (Tamoxifen Citrate) 20 mg PO BID [facility] Last Admin: 12/18/16 11:02 Dose: 20 mg Gen: NAD at rest Heart: tachycardic, regular Lung: scattered rhonchi, scattered inspiratory/expiratory wheezes Abd: soft, nontender Ext: + edema Laboratory Results - last 24 hr 12/17/16 12/17/16 12/18/16 11:55 21:41 05:00 WBC 12.7 H RBC 3.90 Hgb 10.3 L Hct 31.5 L MCV 80.8 MCH 26.4 MCHC 32.7 RDW 16.8 H Plt Count 206 MPV 8.3 Sodium Potassium Chloride Carbon Dioxide Anion Gap BUN Creatinine Creat Clearance w eGFR POC Glucometer [phone] Random Glucose Calcium Total Bilirubin AST ALT Alkaline Phosphatase Creatine Kinase 112 Troponin I 1.40 H* Total Protein Albumin 12/18/16 12/18/16 12/18/16 05:00 06:33 11:38 WBC RBC Hgb Hct MCV MCH MCHC RDW Plt Count MPV Sodium 139 Potassium 4.6 Chloride 97 L Carbon Dioxide 30 Anion Gap 11 BUN 26 H Creatinine 1.2 H Creat Clearance w eGFR 45.09 POC Glucometer [phone] Random Glucose 216 H D Calcium 8.6 Total Bilirubin 0.6 AST 22 D ALT 32 Alkaline Phosphatase 93 Creatine Kinase Troponin I Total Protein 5.5 L Albumin 2.6 L ASSESSMENT AND PLAN: Metastatic Cervical Ca with Lung Mets Acute COPD Exacerbation Acute NSTEMI Partial Small Bowel Obstruction HTN DM h/o DVT Steroid wean BD TX standing and PRN O2 to keep Spo2 >90% ASA AC Monitor bowel function Telemetry monitoring Dr Gibbons CCTime 35" The care of this patient involved high complexity decision making to prevent further life threatening deterioration of the patient's condition and/or to evaluate & treat vital organ system(s) failure or risk of failure.
--- NOTE | 2016-12-18 13:31 | PN ---
Physical Exam: 24H Events: no acute events SUBJECTIVE: Patient seen and examined. States breathing has improved, continues to have productive cough with blood-tinged sputum. No chest pain. No nausea or vomiting. Ate some breakfast, but appetite decreased. OBJECTIVE: Vital Signs Period Temp Pulse Resp BP Sys/Encarnacion Pulse Ox Last 24 Hr 98.1 F-99.5 F 100-128 17-22 123-162/65-89 100-100 Intake & Output 12/15/16 12/16/16 12/17/16 12/18/16 23:59 23:59 23:59 23:59 Intake Total 1260 1390 1480 Output Total 488 479 6453 501 Balance 760 490 -1870 -501 Weight 88.6 kg 88 kg 88.5 kg 88 kg GENERAL: [place], awake, alert, and fully oriented, NAD EYES: sclera anicteric, conjunctiva clear LUNGS: scattered rhonchi and wheezes bilaterally HEART: RRR, normal S1/S2 without murmur, rub or gallop ABDOMEN: Soft, ntnd EXTREMITIES: bilateral 2+ LE edema CBC, BMP 12/18/16 05:00 12/18/16 05:00 Hepatic Panel Total Bilirubin 0.6 mg/dL (0.2-1.0) 12/18/16 05:00 AST 22 U/L (15-37) D 12/18/16 05:00 ALT 32 U/L (12-78) 12/18/16 05:00 Alkaline Phosphatase 93 U/L (45-117) 12/18/16 05:00 Albumin 2.6 g/dl (3.4-5.0) L 12/18/16 05:00 Total Protein 2.6 L 12/18/16 05:00 Active Medications Aclidinium [place] (Tudorza -) 1 puff IH BID [facility] Last Admin: 12/18/16 11:02 Dose: 1 puff Albuterol Sulfate (Ventolin 0.5% -) 1 amp NEB QIDR [facility] Last Admin: 12/18/16 06:30 Dose: 1 amp Albuterol Sulfate (Ventolin Hfa Inhaler -) 2 puff IH Q6H PRN PRN Reason: WHEEZING Alprazolam (Xanax -) 0.5 mg PO Q8H PRN PRN Reason: ANXIETY Last Admin: 12/18/16 07:00 Dose: 0.5 mg Artificial Tears (Artificial Tears) 1 drop OU QID PRN PRN Reason: DRY EYES Aspirin (Asa -) 81 mg PO DAILY [facility] Last Admin: 12/17/16 10:35 Dose: 81 mg Atorvastatin Calcium (Lipitor -) 40 mg PO HS [facility] Last Admin: 12/17/16 21:10 Dose: 40 mg Budesonide/Formoterol Fumarate (Symbicort 160/4.5mcg -) 2 puff IH BID [facility] Last Admin: 12/18/16 11:02 Dose: 2 puff Clotrimazole (Mycelex Larry's -) 10 mg PO 5XD [facility] Last Admin: 12/18/16 11:01 Dose: 10 mg Enoxaparin Sodium (Lovenox -) 80 mg SQ BID [facility] Last Admin: 12/18/16 10:59 Dose: 80 mg Furosemide (Lasix Injection -) 20 mg IVPUSH BID@0600,1400 [facility] Last Admin: 12/18/16 06:26 Dose: 20 mg Famotidine/Sodium Chloride (Pepcid 20 Mg Premixed Ivpb -) 50 mls @ 100 mls/hr IVPB BID [facility] Last Admin: 12/18/16 11:00 Dose: 100 mls/hr Insulin Aspart (Novolog Vial Sliding Scale -) 1 vial SQ ACHS [facility] PRN Reason: Protocol Last Admin: 12/18/16 06:39 Dose: 4 units Insulin Detemir (Levemir Vial) 10 units SQ BIDI [facility] Last Admin: 12/18/16 06:39 Dose: 10 units Levothyroxine Sodium (Synthroid -) 100 mcg PO DAILY@0700 [facility] Last Admin: 12/18/16 06:27 Dose: 100 mcg Methylprednisolone Sodium Succinate (Solu-Medrol -) 40 mg IVPB BID [facility] Last Admin: 12/18/16 11:00 Dose: 40 mg Montelukast Sodium (Singulair -) 10 mg PO HS [facility] Last Admin: 12/17/16 21:10 Dose: 10 mg Nebivolol (Bystolic -) 5 mg PO DAILY [facility] Pt's Own Med: Prednisolone Opht Susp 1% 1 each OS QID [facility] Last Admin: 12/18/16 11:00 Dose: 1 each Pt's Own Med: Bromfenac Opht Kandace/0.09% 1 each OS DAILY [facility] Last Admin: 12/18/16 11:01 Dose: 1 each Pt's Own Med: Moxifloxacin Opht Kandace:0.5% 1 each OS QID [facility] Last Admin: 12/18/16 11:01 Dose: 1 each Nystatin (Nystop Powder -) 1 applic TP BID [facility] Last Admin: 12/18/16 11:00 Dose: 1 applic Ondansetron HCl (Zofran Injection) 4 mg IVPB Q6H PRN PRN Reason: NAUSEA Last Admin: 12/17/16 12:46 Dose: 4 mg Oxycodone HCl (Roxicodone -) 15 mg PO Q8H PRN PRN Reason: PAIN Last Admin: 12/18/16 07:00 Dose: 15 mg Tamoxifen Citrate (Tamoxifen Citrate) 20 mg PO BID [facility] Last Admin: 12/18/16 11:02 Dose: 20 mg ASSESSMENT/PLAN: 66yo F with metastatic endometrial cancer with lung mets, NSTEMI (trop trended to peak, started on ASA & statin) and acute COPD exacerbation who has improving dyspnea. She presented with abdominal pain possibly 2/2 to partial SBO seen on CT. She is tolerating food with regular BMs. Per surgery may require hernia repair as outpatient, although high risk for any operative procedure. Patient is stable, and is awaiting transfer to Telemetry. #NSTEMI -Cardiology following -ECHO pending -ASA 81mg daily -Atorvastatin 40mg PO HS #Pulm -Continue bronchodilators standing and PRN -Methylprednisolone 40mg IVPB Q12H -maintain SpO2 >90% #Renal -Continue Lasix IV 20mg daily #Oncology -morphine 15mg PO PRN q8 -continue home tamoxifen 20mg BID -Oncology (Dr. Arreaga) consulted, appreciate recommendations #GI -Monitor bowel function -Zofran prn for nausea #Endocrine -10U levemir BID -BGM ACHS -Insulin sliding scale #FEN -IVF held -Monitory daily lytes -Diabetic/low fat diet #PPX -DVT ppx - lovenox 80mg BID -GI ppx - famotidine 20mg IVPB bid d/w Dr. Edwige Barksdale, PGY-1 Visit type - Emergency Visit Emergency Visit: No - New Patient This patient is new to me today: No - Critical Care Critical Care patient: Yes Total Critical Care Time (in minutes): 35 Critical Care Statement: The care of this patient involved high complexity decision making to prevent further life threatening deterioration of the patient 's condition and/or to evaluate & treat vital organ system(s) failure or risk of failure.
--- NOTE | 2016-12-18 15:00 | PN ---
Physical Exam: SUBJECTIVE: Patient seen and examined. No acute events overnight. Pt reports no new complaints this am. She denies nausea, emesis, diarrhea, or constipation. She states that she has had 1 BM each day since admission. She denies chest pain, and she endorses SOB consistent with her baseline. She endorses chronic lower back pain. OBJECTIVE: Vital Signs Period Temp Pulse Resp BP Sys/Encarnacion Pulse Ox Last 24 Hr 98.1 F-98.9 F 100-128 17-22 123-162/65-89 100-100 GENERAL: elderly female sitting in bed eating breakfast in NAD HEAD: Normal with no signs of trauma. alvarado facies EYES: Pupils equal, round and reactive to light, extraocular movements intact, sclera anicteric, conjunctiva clear. No lid lag. EARS, NOSE, THROAT: Ears normal, nares patent, oropharynx clear without exudates. Moist mucous membranes. + hirsutism NECK: Normal range of motion, supple without lymphadenopathy, JVD, or masses. LUNGS: wheezing diffusely, rhonchi HEART: tachycardic, normal S1 and S2 without murmur, rub or gallop. ABDOMEN: distended, abnormal masses, minimally tender, lower quadrant ecchymosis , no rebound tenderness, no guarding, + central adiposity UPPER EXTREMITIES: 2+ pulses, warm, well-perfused. No cyanosis. No clubbing. No peripheral edema. multiple ecchymoses LOWER EXTREMITIES: 2+ b/l LE pitting edema. right foot has amputations of 3rd, 4th, and 5th toes. longitudinal healed scar along medial left LE NEUROLOGICAL: Cranial nerves II-XII intact. language is normal SKIN: Warm, dry, normal turgor, no rashes or lesions noted, normal capillary refill. Laboratory Results - last 24 hr 12/17/16 12/18/16 12/18/16 21:41 05:00 05:00 WBC 12.7 H RBC 3.90 Hgb 10.3 L Hct 31.5 L MCV 80.8 MCH 26.4 MCHC 32.7 RDW 16.8 H Plt Count 206 MPV 8.3 Sodium 139 Potassium 4.6 Chloride 97 L Carbon Dioxide 30 Anion Gap 11 BUN 26 H Creatinine 1.2 H Creat Clearance w eGFR 45.09 POC Glucometer [phone] Random Glucose 216 H D Calcium 8.6 Total Bilirubin 0.6 AST 22 D ALT 32 Alkaline Phosphatase 93 Total Protein 5.5 L Albumin 2.6 L 12/18/16 12/18/16 06:33 11:38 WBC RBC Hgb Hct MCV MCH MCHC RDW Plt Count MPV Sodium Potassium Chloride Carbon Dioxide Anion Gap BUN Creatinine Creat Clearance w eGFR POC Glucometer [phone] Random Glucose Calcium Total Bilirubin AST ALT Alkaline Phosphatase Total Protein Albumin Active Medications Generic Name Dose Route Start Last Admin Trade Name Freq PRN Reason Stop Dose Admin Aclidinium [place] 1 puff 12/15/16 22:00 12/18/16 11:02 Tudorza - IH 1 puff BID RAFA Administration Albuterol Sulfate 1 amp 12/15/16 18:00 12/18/16 06:30 Ventolin 0.5% - NEB 1 amp QIDR RAFA Administration Albuterol Sulfate 2 puff 12/15/16 14:40 Ventolin Hfa Inhaler - IH Q6H PRN WHEEZING Alprazolam 0.5 mg 12/15/16 17:42 12/18/16 13:58 Xanax - PO 0.5 mg Q8H PRN Administration ANXIETY Artificial Tears 1 drop 12/15/16 12:53 Artificial Tears OU QID PRN DRY EYES Aspirin 81 mg 12/16/16 10:00 12/18/16 11:15 Asa - PO 81 mg DAILY RAFA Administration Atorvastatin Calcium 40 mg 12/17/16 22:00 12/17/16 21:10 Lipitor - PO 40 mg HS RAFA Administration Budesonide/Formoterol Fumarate 2 puff 12/15/16 22:00 12/18/16 11:02 Symbicort 160/4.5mcg - IH 2 puff BID RAFA Administration Clotrimazole 10 mg 12/17/16 14:00 12/18/16 13:59 Mycelex Larry's - PO 10 mg 5XD RAFA Administration Enoxaparin Sodium 80 mg 12/15/16 22:00 12/18/16 10:59 Lovenox - SQ 80 mg BID RAFA Administration Furosemide 20 mg 12/17/16 06:00 12/18/16 13:58 Lasix Injection - IVPUSH 20 mg BID@0600,1400 RAFA Administration Famotidine/Sodium Chloride 50 mls @ 100 mls/hr 12/15/16 13:00 12/18/16 11:00 Pepcid 20 Mg Premixed Ivpb - IVPB 100 mls/hr BID RAFA Administration Insulin Aspart 1 vial 12/17/16 16:30 12/18/16 12:00 Novolog Vial Sliding Scale - SQ 10 units ACHS RAFA Administration Protocol Insulin Detemir 10 units 12/15/16 12:48 12/18/16 06:39 Levemir Vial SQ 10 units BIDI RAFA Administration Levothyroxine Sodium 100 mcg 12/16/16 07:00 12/18/16 06:27 Synthroid - PO 100 mcg DAILY@0700 RAFA Administration Methylprednisolone Sodium Succinate 40 mg 12/17/16 22:00 12/18/16 11:00 Solu-Medrol - IVPB 40 mg BID RAFA Administration Montelukast Sodium 10 mg 12/15/16 22:00 12/17/16 21:10 Singulair - PO 10 mg HS RAFA Administration Nebivolol 5 mg 12/18/16 10:00 Bystolic - PO DAILY RAFA Pt's Own Med: 1 each 12/15/16 22:00 12/18/16 13:59 Prednisolone Opht OS 1 each Susp 1% QID RAFA Administration Pt's Own Med: 1 each 12/16/16 10:00 12/18/16 11:01 Bromfenac Opht Kandace/ OS 1 each 0.09% DAILY RAFA Administration Pt's Own Med: 1 each 12/15/16 22:00 12/18/16 13:59 Moxifloxacin Opht OS 1 each Kandace:0.5% QID RAFA Administration Nystatin 1 applic 12/17/16 22:00 12/18/16 11:00 Nystop Powder - TP 1 applic BID RAFA Administration Ondansetron HCl 4 mg 12/15/16 14:40 12/17/16 12:46 Zofran Injection IVPB 4 mg Q6H PRN Administration NAUSEA Oxycodone HCl 15 mg 12/16/16 14:57 12/18/16 13:57 Roxicodone - PO 15 mg Q8H PRN Administration PAIN Tamoxifen Citrate 20 mg 12/17/16 11:00 12/18/16 11:02 Tamoxifen Citrate PO 20 mg BID RAFA Administration ASSESSMENT/PLAN: 66F w/ hx of endometrial cancer w/ mets to lungs on tamoxifen, asthma, COPD diastolic CHF, IDDM, DVT, HTN, HLD, hypothyroidism, presenting with abdominal pain, found to have NSTEMI, COPD exacerbation, and partial SBO on CT, improving. #NSTEMI -troponin I of 6.77 which downtrended to 5.4 and then 1.4; no signs of ischemia on EKG -cocoa roaster -Dr. Moise on board -continue ASA 81, lipitor 40, and lovenox 80 #abdominal pain -2/[address] found on CT -pain control: continue home oxycodone 15mg q8h -pepcid -zofran 4mg q6h PRN -Dr. Camargo on board, appreciated recs to continue diet as tolerated #SOB -2/2 lung mets and COPD exacerbation -2L O2 via NC, maintain O2 > 90 -continue singulair 10, solumedrol 40 IV BID, symbicort BID, ventolin q6h PRN #tachycardia -HR 100-120s today -started nebivolol 5mg PO qd -monitor BP and HR as well as O2 sat and breathing #SARAH -creatinine of 1.2 today -2+ lower extremity edema -lasix 20 IV #uterine cancer -continue home tamoxifen 20 BID -palliative care team consulted, pt has poor prognosis -Dr. Arreaga on board, appreciate recs #leukocytosis -likely due to prednisone -wbc count of 12.7 today, down from 19 on admission -blood cx- no growth to date -urine cx- no growth #IDDM -10U levemir BID -SSI -resume home dose of 40U levemir BID once pt is started on diet #HLD -continue atorvastatin 40mg -LDL of 115 #Hypothyroid -continued home dose of levothyroxine 100mg #asthma -2L O2 via NC -continue singulair 10, solumedrol 40 IV BID, symbicort BID, ventolin q6h PRN #HTN -continue lasix 20 IV BID #diastolic CHF -continue lasix 20 IV BID, ASA 81 #advanced directives -spoke with pt about her advanced directives. Pt states that she hasn't discussed it with her yet but will now #FEN/ppx -no fluids -electrolytes wnl -fat/sodium controlled diet -pepcid -lovenox 80 Patrice Bradford MD PGY1 Visit type - Emergency Visit Emergency Visit: Yes ED Registration Date: 12/15/16 Care time: The patient presented to the Emergency Department on the above date and was hospitalized for further evaluation of their emergent condition. - New Patient This patient is new to me today: No - Critical Care Critical Care patient: No
--- NOTE | 2016-12-18 16:41 | PN ---
Teaching Attending Note Name of Resident: Patrice Bradford ATTENDING PHYSICIAN STATEMENT I saw and evaluated the patient. I reviewed the resident's note and discussed the case with the resident. I agree with the resident's findings and plan as documented. SUBJECTIVE: Comfortable, feeling better, c/o cough and unable to bring any sputum up. IN icu. OBJECTIVE: Vital Signs Temperature 98.6 F 12/18/16 14:00 Pulse Rate 112 H 12/18/16 14:00 Respiratory Rate 19 12/18/16 14:00 Blood Pressure 153/84 12/18/16 14:00 O2 Sat by Pulse Oximetry (%) 100 12/17/16 20:26 CBCD WBC 12.7 K/mm3 (4.0-10.0) H 12/18/16 05:00 RBC 3.90 M/mm3 (3.60-5.2) 12/18/16 05:00 Hgb 10.3 GM/dL (10.7-15.3) L 12/18/16 05:00 Hct 31.5 % (32.4-45.2) L 12/18/16 05:00 MCV 80.8 fl (80-96) 12/18/16 05:00 MCHC 32.7 g/dl (32.0-36.0) 12/18/16 05:00 RDW 16.8 % (11.6-15.6) H 12/18/16 05:00 Plt Count 206 K/MM3 (134-434) 12/18/16 05:00 MPV 8.3 fl (7.5-11.1) 12/18/16 05:00 CMP Sodium 139 mmol/L (136-145) 12/18/16 05:00 Potassium 4.6 mmol/L (3.5-5.1) 12/18/16 05:00 Chloride 97 mmol/L (98-107) L 12/18/16 05:00 Carbon Dioxide 30 mmol/L (21-32) 12/18/16 05:00 Anion Gap 11 (8-16) 12/18/16 05:00 BUN 26 mg/dL (7-18) H 12/18/16 05:00 Creatinine 1.2 mg/dL (0.55-1.02) H 12/18/16 05:00 Creat Clearance w eGFR 45.09 (>60) 12/18/16 05:00 Random Glucose 216 mg/dL (74-106) H D 12/18/16 05:00 Calcium 8.6 mg/dL (8.5-10.1) 12/18/16 05:00 Total Bilirubin 0.6 mg/dL (0.2-1.0) 12/18/16 05:00 AST 22 U/L (15-37) D 12/18/16 05:00 ALT 32 U/L (12-78) 12/18/16 05:00 Alkaline Phosphatase 93 U/L (45-117) 12/18/16 05:00 Total Protein 5.5 g/dl (6.4-8.2) L 12/18/16 05:00 Albumin 2.6 g/dl (3.4-5.0) L 12/18/16 05:00 CARDIAC ENZYMES Creatine Kinase 112 IU/L (26-192) 12/17/16 11:55 Troponin I 1.40 ng/ml (0.00-0.05) H* 12/17/16 11:55 Current Medications Generic Name Dose Route Start Last Admin Trade Name Freq PRN Reason Stop Dose Admin Aclidinium [place] 1 puff 12/15/16 22:00 12/18/16 11:02 Tudorza - IH 1 puff BID RAFA Administration Albuterol Sulfate 1 amp 12/15/16 18:00 12/18/16 06:30 Ventolin 0.5% - NEB 1 amp QIDR RAFA Administration Albuterol Sulfate 2 puff 12/15/16 14:40 Ventolin Hfa Inhaler - IH Q6H PRN WHEEZING Alprazolam 0.5 mg 12/15/16 17:42 12/18/16 13:58 Xanax - PO 0.5 mg Q8H PRN Administration ANXIETY Artificial Tears 1 drop 12/15/16 12:53 Artificial Tears OU QID PRN DRY EYES Aspirin 81 mg 12/16/16 10:00 12/18/16 11:15 Asa - PO 81 mg DAILY RAFA Administration Atorvastatin Calcium 40 mg 12/17/16 22:00 12/17/16 21:10 Lipitor - PO 40 mg HS RAFA Administration Budesonide/Formoterol Fumarate 2 puff 12/15/16 22:00 12/18/16 11:02 Symbicort 160/4.5mcg - IH 2 puff BID RAFA Administration Clotrimazole 10 mg 12/17/16 14:00 12/18/16 13:59 Mycelex Larry's - PO 10 mg 5XD RAFA Administration Enoxaparin Sodium 80 mg 12/15/16 22:00 12/18/16 10:59 Lovenox - SQ 80 mg BID RAFA Administration Furosemide 20 mg 12/17/16 06:00 12/18/16 13:58 Lasix Injection - IVPUSH 20 mg BID@0600,1400 RAFA Administration Famotidine/Sodium Chloride 50 mls @ 100 mls/hr 12/15/16 13:00 12/18/16 11:00 Pepcid 20 Mg Premixed Ivpb - IVPB 100 mls/hr BID RAFA Administration Insulin Aspart 1 vial 12/17/16 16:30 12/18/16 12:00 Novolog Vial Sliding Scale - SQ 10 units ACHS RAFA Administration Protocol Insulin Detemir 10 units 12/15/16 12:48 12/18/16 06:39 Levemir Vial SQ 10 units BIDI RAFA Administration Levothyroxine Sodium 100 mcg 12/16/16 07:00 12/18/16 06:27 Synthroid - PO 100 mcg DAILY@0700 RAFA Administration Methylprednisolone Sodium Succinate 40 mg 12/17/16 22:00 12/18/16 11:00 Solu-Medrol - IVPB 40 mg BID RAFA Administration Montelukast Sodium 10 mg 12/15/16 22:00 12/17/16 21:10 Singulair - PO 10 mg HS RAFA Administration Nebivolol 5 mg 12/18/16 10:00 Bystolic - PO DAILY RAFA Pt's Own Med: 1 each 12/15/16 22:00 12/18/16 13:59 Prednisolone Opht OS 1 each Susp 1% QID RAFA Administration Pt's Own Med: 1 each 12/16/16 10:00 12/18/16 11:01 Bromfenac Opht Kandace/ OS 1 each 0.09% DAILY RAFA Administration Pt's Own Med: 1 each 12/15/16 22:00 12/18/16 13:59 Moxifloxacin Opht OS 1 each Kandace:0.5% QID RAFA Administration Nystatin 1 applic 12/17/16 22:00 12/18/16 11:00 Nystop Powder - TP 1 applic BID RAFA Administration Ondansetron HCl 4 mg 12/15/16 14:40 12/17/16 12:46 Zofran Injection IVPB 4 mg Q6H PRN Administration NAUSEA Oxycodone HCl 15 mg 12/16/16 14:57 12/18/16 13:57 Roxicodone - PO 15 mg Q8H PRN Administration PAIN Tamoxifen Citrate 20 mg 12/17/16 11:00 12/18/16 11:02 Tamoxifen Citrate PO 20 mg BID RAFA Administration Home Medications Medication Instructions Recorded Albuterol Sulfate Inhaler - 2 inh PO Q6H 11/21/16 [Ventolin HFA Inhaler -] Clotrimazole [Mycelex -] 10 mg PO 5XD 11/21/16 Furosemide [Lasix] 40 mg PO DAILY 11/21/16 Insulin (Novolog) [Novolog Flexpen See Protocol SQ TID 11/21/16 -] Insulin Glargine,Hum.rec.anlog 40 units SQ BID 11/21/16 [Lantus Solostar PEN -] Levothyroxine [Synthroid -] 100 mcg PO DAILY 11/21/16 Losartan Potassium 50 mg PO BID 11/21/16 Megestrol Acetate 80 mg PO BID 11/21/16 Montelukast Na [Singulair -] 1 tab HS 11/21/16 Ondansetron HCl [Zofran] 4 mg PO BID 11/21/16 Ranitidine HCl [Zantac] 300 mg PO HS 11/21/16 Tamoxifen Citrate 20 mg PO BID 11/21/16 Alprazolam [Xanax] 0.5 mg PO TID PRN 11/23/16 Oxycodone HCl [Roxicodone] 15 mg PO TID PRN 11/23/16 Acetaminophen [Tylenol .Regular 650 mg PO Q6H PRN #0 tablet 11/27/16 Strength -] Albuterol Sulfate 0.5% [Ventolin 1 amp NEB QIDR amp 11/27/16 0.5% Nebulizing Soln. -] Aspirin [ASA -] 81 mg PO DAILY tab.chew 11/27/16 Atorvastatin Ca [Lipitor] 10 mg PO HS tablet 11/27/16 Budesonide/Formeterol Fumarate 2 puff IH BID inhaler 11/27/16 [SYMBICORT 160/4.5mcg -] Cholecalciferol (Vitamin D3) 1,000 unit PO Q7D tab 11/27/16 [Vitamin D -] Enoxaparin [Lovenox -] 120 mg SQ DAILY #30 dis.syr 11/27/16 Nystatin Powder 1 applic TP BID #0 bottle 11/27/16 Polyvinyl Alcohol [Artificial 1 drop OU QID PRN #1 bottle 11/27/16 Tears] Tiotropium [place] [Spiriva] 1 puff IH DAILY #1 inh 11/27/16 Prednisone [Deltasone -] 20 mg PO HS 12/10/16 Prednisone [Prednisone 50 MG 50 mg PO DAILY 12/10/16 TABLETS] Laboratory Tests 12/15/16 12/15/16 12/15/16 00:27 00:27 00:27 WBC 19.2 H Anion Gap 11 Creatinine 1.5 H D Lactic Acid 3.1 H* Creatine Kinase Index 7.1 H* CK-MB (CK-2) 12.648 H Troponin I 6.77 H* B-Natriuretic Peptide Triglycerides Cholesterol Total LDL Cholesterol HDL Cholesterol 12/15/16 12/15/16 12/15/16 04:01 04:01 11:45 WBC Anion Gap Creatinine Lactic Acid 1.6 Creatine Kinase Index CK-MB (CK-2) 9.969 H Troponin I 5.43 H* 4.31 H* B-Natriuretic Peptide Triglycerides Cholesterol Total LDL Cholesterol HDL Cholesterol 12/16/16 12/16/16 12/17/16 05:35 05:35 05:30 WBC 15.1 H 14.6 H Anion Gap Creatinine Lactic Acid Creatine Kinase Index CK-MB (CK-2) Troponin I B-Natriuretic Peptide 1223.67 H Triglycerides 128 D Cholesterol 190 D Total LDL Cholesterol 115 H HDL Cholesterol 52 D 12/17/16 12/18/16 11:55 05:00 WBC 12.7 H Anion Gap Creatinine Lactic Acid Creatine Kinase Index CK-MB (CK-2) Troponin I 1.40 H* B-Natriuretic Peptide Triglycerides Cholesterol Total LDL Cholesterol HDL Cholesterol PE: positive for wheezing exp.and inspiratory Heart: S1S2 positive abdomen soft, large abdomen EXT: [address] edema [address] A/P: left lower anterior abdominal wall hernia previously seen on prior images- chronic, + stool in colon ASSESSMENT AND PLAN: Patient is a 66F w/ 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 continue lovenox 80mg sq bid. Distributor Sales Manager on the case, continue Aspirin, lipitor continue. # Severe COPD with of hx of Lung Ca, continue neb, steroid treatments #abdominal pain resolved ; lactic acid of 3.1--> 1.6, surgical consult appreciated , hernia repair as an outpatient but patient is a high risk patient. #SARAH creatinine of 1.5 -->0.9-->1.1-->1.2 today , since on lasix 20mg IV bid, hold losartan for now since elevated potassium, monitor cr/potassium #Hx of Uterine cancer continue home tamoxifen 20 BID ;palliative care team consulted, pt has poor prognosis #Acute leukocytosis improving likely due to prednisone. #IDDM , will cut further to 10 of levemir BID since having Low blood sugar; SSI #HLD was given high dose atorvastatin 80mg , was on 10mg at home, will continue with 40mg daily LDL 115 #Hypothyroid continued home dose of levothyroxine #asthma 2L O2 via NC; continue budesonide/formeterol BID, montelukast 10mg HS, ventolin, albuterol PRN DVt px: Lovenox
--- NOTE | 2016-12-18 17:46 | EKG ---
Test Reason : Blood Pressure : / mmHG Vent. Rate : 112 BPM Atrial Rate : 112 BPM P-R Int : 112 ms QRS Dur : 120 ms QT Int : 352 ms P-R-T Axes : 059 -56 055 degrees QTc Int : 480 ms SINUS TACHYCARDIA RIGHT BUNDLE BRANCH BLOCK LEFT ANTERIOR FASCICULAR BLOCK BIFASCICULAR BLOCK ABNORMAL ECG WHEN COMPARED WITH ECG OF 16-DEC-2016 09:35, NO SIGNIFICANT CHANGE WAS FOUND BASELINE ARTIFACTS REPEAT EKG IF CLINICALLY INDICATED Confirmed by GRIS GARCIA MD ([id number] on 12/18/2016 5:46:45 PM Referred By: Confirmed By:GRIS GARCIA MD
[2016-12-18] MEDS: NEBIVOLOL 5 MG TABLET (FP) PO SCH (18:49)
[2016-12-18] MEDS: ONDANSETRON 4 MG/2 ML VIAL IVPB PRN (20:03)
[2016-12-18] MEDS: ATORVASTATIN CA 40 MG TABLET (FP) PO SCH (21:34)
[2016-12-18] MEDS: MONTELUKAST NA 10 MG TABLET PO SCH (21:35)
[2016-12-18] MEDS ORDERED: ALPRAZolam 0.25 MG TABLET PO ONE (21:43)
--- NOTE | 2016-12-18 22:00 | CONSULT ---
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 on tamoxifen, asthma, diastolic CHF, IDDM, DVT, HTN, HLD, hypothyroidism, s/p L eye cataract surgery several days ago presenting with abdominal pain, found to have NSTEMI - Past Medical History RODEO CLOWN: Yes: Peripheral Neuropathy Cardio/Vascular: Yes: CAD, Deep Vein Thrombosis, HTN, Hyperlipdemia, Murmur, Other (PVD) Pulmonary: Yes: Asthma, COPD, Other (lung mets/some cavitary in appearance) Gastrointestinal: Yes: Gastritis Renal/: Yes: Cancer (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) ...LMP: 11/21/13 ...: No Infectious Disease: Yes: Other (hand infection in 03/2014 with group a strep bacteremia, group b strep bacteremia 08/2014) Psych: Yes: Anxiety, Depression Musculoskeletal: Yes: Other (chronic pain) Endocrine: Yes: Diabetes Mellitus Additional Medical History: neuropathy - Past Surgical History Past Surgical History: Yes: Amputation (right third and fourth toes), Bypass ( left leg), Cholecystectomy, Hernia Repair, Hysterectomy - Alcohol/Substance Use Hx Alcohol Use: No History of Substance Use: reports: None - Smoking History Smoking history: Never smoked Have you smoked in the past 12 months: No Aproximately how many cigarettes per day: 0 - Social History Usual Living Arrangement: With Spouse ADL: Family Assistance History of Recent Travel: No Home Medications - Allergies Allergies/Adverse Reactions: Allergies Allergy/AdvReac Type Severity Reaction Status Date / Time Penicillins Allergy Unknown Hives Verified 12/14/16 22:41 - Home Medications Home Medications: Ambulatory Orders Albuterol Sulfate Inhaler - [Ventolin HFA Inhaler -] 2 inh PO Q6H 11/21/16 Clotrimazole [Mycelex -] 10 mg PO 5XD 11/21/16 Furosemide [Lasix] 40 mg PO DAILY 11/21/16 Insulin (Novolog) [Novolog Flexpen -] See Protocol SQ TID 11/21/16 Insulin Glargine,Hum.rec.anlog [Lantus Solostar PEN -] 40 units SQ BID 11/21/16 Levothyroxine [Synthroid -] 100 mcg PO DAILY 11/21/16 Losartan Potassium 50 mg PO BID 11/21/16 Megestrol Acetate 80 mg PO BID 11/21/16 Montelukast Na [Singulair -] 1 tab HS 11/21/16 Ondansetron HCl [Zofran] 4 mg PO BID 11/21/16 Ranitidine HCl [Zantac] 300 mg PO HS 11/21/16 Tamoxifen Citrate 20 mg PO BID 11/21/16 Alprazolam [Xanax] 0.5 mg PO TID PRN 11/23/16 Oxycodone HCl [Roxicodone] 15 mg PO TID PRN 11/23/16 Acetaminophen [Tylenol .Regular Strength -] 650 mg PO Q6H PRN #0 tablet Albuterol Sulfate 0.5% [Ventolin 0.5% Nebulizing Soln. -] 1 amp NEB QIDR amp Aspirin [ASA -] 81 mg PO DAILY tab.chew 11/27/16 Atorvastatin Ca [Lipitor] 10 mg PO HS tablet 11/27/16 Budesonide/Formeterol Fumarate [SYMBICORT 160/4.5mcg -] 2 puff IH BID inhaler 11/27/16 Cholecalciferol (Vitamin D3) [Vitamin D -] 1,000 unit PO Q7D tab 11/27/16 Enoxaparin [Lovenox -] 120 mg SQ DAILY #30 dis.syr 11/27/16 Nystatin Powder 1 applic TP BID #0 bottle 11/27/16 Polyvinyl Alcohol [Artificial Tears] 1 drop OU QID PRN #1 bottle 11/27/16 Tiotropium [place] [Spiriva] 1 puff IH DAILY #1 inh 11/27/16 Prednisone [Deltasone -] 20 mg PO HS 12/10/16 Prednisone [Prednisone 50 MG TABLETS] 50 mg PO DAILY 12/10/16 Family Disease History - Family Disease History Family Disease History: Diabetes: Mother (CVA), Heart Disease: Mother, Other: Mother Physical Exam Vital Signs: Vital Signs Temperature 98.6 F 12/18/16 14:00 Pulse Rate 110 H 12/18/16 18:00 Respiratory Rate 19 12/18/16 18:00 Blood Pressure 126/110 12/18/16 18:00 O2 Sat by Pulse Oximetry (%) 100 12/17/16 20:26 Constitutional: Yes: Well Nourished, No Distress Eyes: Yes: Conjunctiva Clear, EOM Intact HENT: Yes: Atraumatic, Normocephalic Neck: Yes: Supple Cardiovascular: Yes: Regular Rate and Rhythm Respiratory: Yes: Wheezes Gastrointestinal: Yes: Normal Bowel Sounds Labs: CBC, BMP 12/18/16 05:00 12/18/16 05:00 Imaging - Results Chest X-ray: Report Reviewed Cat Scan: Report Reviewed Assessment/Plan Metastatic Endometrial Ca to the Lungs with progression of disease NSTEMI acute COPD exacerbation s/p recent Eye surgery h/o DVT -would stop tamoxifen, Pt did [place] [facility] [place] as per her. Therefore, no change in therapy, and we have evidence of progression of disease in the lungs in the scans in our system -consider repeating CT chest, reviewed the one from 11/2016 -tumor markers -Once acute issues resolves, COPD/NSTEMI, will need to consider treatment for the cancer. -On therapeutic lovenox for DVT -pulm/cardiology follow-up.
[2016-12-19] MEDS: oxyCODONE HCL 5 MG TABLET PO PRN ×2 (05:57→13:12)
[2016-12-19] MEDS: FUROSEMIDE 40 MG/4 ML INJECTABLE VIAL IVPUSH SCH ×2 (05:58→15:05)
[2016-12-19] MEDS ORDERED: ACETAMINOPHEN 1000 MG/100 ML VIAL (NON FORMULARY) IVPB PRN (05:58)
[2016-12-19] MEDS: CLOTRIMAZOLE 10 MG TROCHE (FP) PO SCH ×5 (05:58→21:16)
[2016-12-19] MEDS: ALBUTEROL SO4 0.5 % INH SOLN 2.5 MG/0.5 ML VIAL.NEB. NEB SCH ×4 (06:10→17:24)
[2016-12-19 06:16] LABS: MCH 26.8 pg (25.7-33.7); MEAN CELL VOLUME 81.2 fl (80-96); MEAN PLT VOLUME 8.2 fl (7.5-11.1); PLATELET COUNT 216 K/MM3 (134-434); RDW 16.7 % (11.6-15.6)
[2016-12-19] MEDS: LEVOTHYROXINE NA 100 MCG TABLET (FP) PO SCH (06:28)
[2016-12-19 06:48] LABS: ALBUMIN 2.6 g/dl (3.4-5.0); ALK PHOS 96 U/L (45-117); ANION GAP 6 (8-16); BILIRUBIN,TOTAL 0.4 mg/dL (0.2-1.0); CALCIUM 9.1 mg/dL (8.5-10.1); CO2 37 mmol/L (21-32); GLUCOSE,RANDOM 208 mg/dL (74-106); PHOSPHOROUS 3.8 mg/dL (2.5-4.9); SGOT/AST 18 U/L (15-37); SGPT/ALT 34 U/L (12-78); TOT PROT 5.7 g/dl (6.4-8.2)
--- NOTE | 2016-12-19 06:54 | PN ---
Progress Note (short form) - Note Progress Note: Chief Complaint: Events noted, notes reviewed, sitting in a chair continues to report persistent dyspnea but improved, denies any chest pain, sinus rhythm is noted History of Present Illness: Seen and examined in the ICU. Events noted, notes reviewed, sitting in a chair continues to report persistent dyspnea but improved, denies any chest pain, sinus rhythm is noted Sinus tachycardia resolved Echocardiogram completed but not interpreted, to be reviewed - Current Medication List Current Medications Acetaminophen (Ofirmev Injection -) 1,000 mg IVPB Q6H PRN PRN Reason: FEVER OR PAIN Stop: 12/19/16 23:59 Aclidinium [place] (Tudorza -) 1 puff IH BID [facility] Last Admin: 12/18/16 21:42 Dose: 1 puff Albuterol Sulfate (Ventolin 0.5% -) 1 amp NEB QIDR [facility] Last Admin: 12/19/16 06:10 Dose: 1 amp Albuterol Sulfate (Ventolin Hfa Inhaler -) 2 puff IH Q6H PRN PRN Reason: WHEEZING Artificial Tears (Artificial Tears) 1 drop OU QID PRN PRN Reason: DRY EYES Aspirin (Asa -) 81 mg PO DAILY [facility] Last Admin: 12/18/16 11:15 Dose: 81 mg Atorvastatin Calcium (Lipitor -) 40 mg PO HS [facility] Last Admin: 12/18/16 21:34 Dose: 40 mg Budesonide/Formoterol Fumarate (Symbicort 160/4.5mcg -) 2 puff IH BID [facility] Last Admin: 12/18/16 21:43 Dose: 2 puff Clotrimazole (Mycelex Larry's -) 10 mg PO 5XD [facility] Last Admin: 12/19/16 05:58 Dose: 10 mg Enoxaparin Sodium (Lovenox -) 80 mg SQ BID [facility] Last Admin: 12/18/16 21:35 Dose: 80 mg Furosemide (Lasix Injection -) 20 mg IVPUSH BID@0600,1400 [facility] Last Admin: 12/19/16 05:58 Dose: 20 mg Famotidine/Sodium Chloride (Pepcid 20 Mg Premixed Ivpb -) 50 mls @ 100 mls/hr IVPB BID [facility] Last Admin: 12/18/16 21:34 Dose: 100 mls/hr Insulin Aspart (Novolog Vial Sliding Scale -) 1 vial SQ ACHS [facility] PRN Reason: Protocol Last Admin: 12/18/16 23:49 Dose: 8 units Insulin Detemir (Levemir Vial) 10 units SQ BIDI [facility] Last Admin: 12/18/16 18:07 Dose: 10 units Levothyroxine Sodium (Synthroid -) 100 mcg PO DAILY@0700 [facility] Last Admin: 12/19/16 06:28 Dose: 100 mcg Methylprednisolone Sodium Succinate (Solu-Medrol -) 40 mg IVPB BID [facility] Last Admin: 12/18/16 21:43 Dose: 40 mg Montelukast Sodium (Singulair -) 10 mg PO HS [facility] Last Admin: 12/18/16 21:35 Dose: 10 mg Nebivolol (Bystolic -) 5 mg PO DAILY [facility] Last Admin: 12/18/16 18:49 Dose: 5 mg Pt's Own Med: Prednisolone Opht Susp 1% 1 each OS QID [facility] Last Admin: 12/18/16 21:48 Dose: 1 each Pt's Own Med: Bromfenac Opht Kandace/0.09% 1 each OS DAILY [facility] Last Admin: 12/18/16 11:01 Dose: 1 each Pt's Own Med: Moxifloxacin Opht Kandace:0.5% 1 each OS QID [facility] Last Admin: 12/18/16 21:48 Dose: 1 each Nystatin (Nystop Powder -) 1 applic TP BID [facility] Last Admin: 12/18/16 21:44 Dose: 1 applic Ondansetron HCl (Zofran Injection) 4 mg IVPB Q6H PRN PRN Reason: NAUSEA Last Admin: 12/18/16 20:03 Dose: 4 mg Oxycodone HCl (Roxicodone -) 15 mg PO Q8H PRN PRN Reason: PAIN Last Admin: 12/19/16 05:57 Dose: 15 mg Tamoxifen Citrate (Tamoxifen Citrate) 20 mg PO BID [facility] Last Admin: 12/18/16 22:49 Dose: 20 mg Review of Systems Constitutional: denies: Chills Cardiovascular: As noted above Respiratory: denies: Cough or Sputum Production Gastrointestinal: denies: Nausea, Vomiting, Diarrhea, Constipation or Abdominal Pain Musculoskeletal: No Symptoms Reported Neurological: denies: Dizziness or Headache - Objective Vital Signs: Last Vital Signs Temp Pulse Resp BP Pulse Ox 98.3 F 85 14 148/70 100 12/19/16 06:00 12/19/16 06:00 12/19/16 06:00 12/19/16 06:00 12/17/16 20:26 Intake & Output 12/16/16 12/17/16 12/18/16 12/19/16 23:59 23:59 23:59 23:59 Intake Total 1390 1480 900 200 Output Total 900 3350 1001 400 Balance 490 -1870 -101 -200 Weight 194 lb 0.108 oz 195 lb 1.745 oz 194 lb 0.108 oz 194 lb 0.108 oz Neck: Supple Negative JVD No Bruit Cardiovascular: S1 S2 Regular Rate and Rhythm, No Murmurs Respiratory: Diminished Breath Sounds at the Bases with Bilateral Scattered Rhonchi Gastrointestinal: Soft Benign Normal Bowel Sounds Ext: Edema Bilaterally Labs: CBC, BMP 12/19/16 05:15 BMP from this AM pending Assessment/Plan ASSESSMENT: 1. CAD with evidence of NSTEMI/demand ischemic injury, angina pectoris 2. Diastolic LV dysfunction with chronic class I NYHA classification LV congestive heart failure, resolving 3. Sinus tachycardia, resolved 4. Hypertension 5. IDDM 6. COPD, exacerbation, resolving 7. Endometrial and cervical carcinoma, metastatic to lung 8. Abdominal pain, resolved PLAN: 1. Continue Bystolic with caution considering her COPD exacerbation 2. Continue ASA and Lovenox 3. Continue Lipitor 4. Continue Lasix 5. Echocardiography to be reviewed 6. As outlined in prior notes recommend conservative medical management considering co-morbidities including metastatic carcinoma Marcus Floyd M.D.
[2016-12-19] MEDS: INSULIN SLIDING SCALE (NOVOLOG) 1 VIAL SQ SCH ×4 (07:29→21:33)
[2016-12-19] MEDS: INSULIN DETEMIR 100 UNITS/ML MDV SQ SCH ×2 (07:29→18:17)
--- NOTE | 2016-12-19 08:00 | PN ---
Physical Exam: 24H events: -Echo completed, pending interpretation -Nebivolol started yesterday -> resolved sinus tachycardia, no worsening of dyspnea SUBJECTIVE: Patient seen and examined. Feels congested, continues to cough with blood-streaked sputum. Improving abdominal pain. No chest pain. Tolerating diet , but has minimal appetite. Last BM 2 days ago. OBJECTIVE: Vital Signs Period Temp Pulse Resp BP Sys/Encarnacion Pulse Ox Last 24 Hr 98.2 F-98.8 F 79-116 14-25 123-156/65-110 Intake & Output 12/16/16 12/17/16 12/18/16 12/19/16 23:59 23:59 23:59 23:59 Intake Total 1390 1480 900 200 Output Total 900 3350 1001 400 Balance 490 -1870 -101 -200 Weight 88 kg 88.5 kg 88 kg 88 kg GENERAL: Cushingoid, awake, alert, and fully oriented, sitting in chair LUNGS: scattered rhonchi and wheezes bilaterally HEART: RRR, normal S1/S2 without murmur, rub or gallop ABDOMEN: Soft, ntnd EXTREMITIES: b/l 2+ LE edema CBC, BMP 12/19/16 05:15 12/19/16 05:15 Hepatic Panel Total Bilirubin 0.4 mg/dL (0.2-1.0) D 12/19/16 05:15 AST 18 U/L (15-37) 12/19/16 05:15 ALT 34 U/L (12-78) 12/19/16 05:15 Alkaline Phosphatase 96 U/L (45-117) 12/19/16 05:15 Albumin 2.6 g/dl (3.4-5.0) L 12/19/16 05:15 Microbiology 12/15/16 00:27 Blood - Peripheral Venous Blood Culture - Preliminary NO GROWTH OBTAINED AFTER 96 HOURS, INCUBATION TO CONTINUE FOR 1 DAYS. 12/15/16 00:27 Blood - Peripheral Venous Blood Culture - Preliminary NO GROWTH OBTAINED AFTER 96 HOURS, INCUBATION TO CONTINUE FOR 1 DAYS. 12/15/16 00:27 Urine - Urine - Catheterized Urine Culture - Final NO GROWTH OBTAINED Active Medications Acetaminophen (Ofirmev Injection -) 1,000 mg IVPB Q6H PRN PRN Reason: FEVER OR PAIN Stop: 12/19/16 23:59 Aclidinium [place] (Tudorza -) 1 puff IH BID [facility] Last Admin: 12/18/16 21:42 Dose: 1 puff Albuterol Sulfate (Ventolin 0.5% -) 1 amp NEB QIDR [facility] Last Admin: 12/19/16 06:10 Dose: 1 amp Albuterol Sulfate (Ventolin Hfa Inhaler -) 2 puff IH Q6H PRN PRN Reason: WHEEZING Artificial Tears (Artificial Tears) 1 drop OU QID PRN PRN Reason: DRY EYES Aspirin (Asa -) 81 mg PO DAILY [facility] Last Admin: 12/18/16 11:15 Dose: 81 mg Atorvastatin Calcium (Lipitor -) 40 mg PO HS [facility] Last Admin: 12/18/16 21:34 Dose: 40 mg Budesonide/Formoterol Fumarate (Symbicort 160/4.5mcg -) 2 puff IH BID [facility] Last Admin: 12/18/16 21:43 Dose: 2 puff Clotrimazole (Mycelex Larry's -) 10 mg PO 5XD [facility] Last Admin: 12/19/16 05:58 Dose: 10 mg Enoxaparin Sodium (Lovenox -) 80 mg SQ BID [facility] Last Admin: 12/18/16 21:35 Dose: 80 mg Furosemide (Lasix Injection -) 20 mg IVPUSH BID@0600,1400 [facility] Last Admin: 12/19/16 05:58 Dose: 20 mg Famotidine/Sodium Chloride (Pepcid 20 Mg Premixed Ivpb -) 50 mls @ 100 mls/hr IVPB BID [facility] Last Admin: 12/18/16 21:34 Dose: 100 mls/hr Insulin Aspart (Novolog Vial Sliding Scale -) 1 vial SQ ACHS [facility] PRN Reason: Protocol Last Admin: 12/19/16 07:29 Dose: 4 units Insulin Detemir (Levemir Vial) 10 units SQ BIDI [facility] Last Admin: 12/19/16 07:29 Dose: 10 units Levothyroxine Sodium (Synthroid -) 100 mcg PO DAILY@0700 [facility] Last Admin: 12/19/16 06:28 Dose: 100 mcg Methylprednisolone Sodium Succinate (Solu-Medrol -) 40 mg IVPB BID [facility] Last Admin: 12/18/16 21:43 Dose: 40 mg Montelukast Sodium (Singulair -) 10 mg PO HS [facility] Last Admin: 12/18/16 21:35 Dose: 10 mg Nebivolol (Bystolic -) 5 mg PO DAILY [facility] Last Admin: 12/18/16 18:49 Dose: 5 mg Pt's Own Med: Prednisolone Opht Susp 1% 1 each OS QID [facility] Last Admin: 12/18/16 21:48 Dose: 1 each Pt's Own Med: Bromfenac Opht Kandace/0.09% 1 each OS DAILY [facility] Last Admin: 12/18/16 11:01 Dose: 1 each Pt's Own Med: Moxifloxacin Opht Kandace:0.5% 1 each OS QID [facility] Last Admin: 12/18/16 21:48 Dose: 1 each Nystatin (Nystop Powder -) 1 applic TP BID [facility] Last Admin: 12/18/16 21:44 Dose: 1 applic Ondansetron HCl (Zofran Injection) 4 mg IVPB Q6H PRN PRN Reason: NAUSEA Last Admin: 12/18/16 20:03 Dose: 4 mg Oxycodone HCl (Roxicodone -) 15 mg PO Q8H PRN PRN Reason: PAIN Last Admin: 12/19/16 05:57 Dose: 15 mg Tamoxifen Citrate (Tamoxifen Citrate) 20 mg PO BID [facility] Last Admin: 12/18/16 22:49 Dose: 20 mg ASSESSMENT/PLAN: 66yo F with metastatic endometrial cancer with lung mets, NSTEMI (trop trended to peak, started on ASA & statin) and COPD exacerbation who has improving dyspnea. Patient is stable, and is awaiting transfer to Telemetry. #NSTEMI -Cardiology following -ECHO completed, pending interpretation -Nebivolol 5mg PO Daily -ASA 81mg daily -Atorvastatin 40mg PO HS #Pulm -Continue bronchodilators standing and PRN -Oxygen therapy to maintain SpoO2 > 90% -Taper steroids -maintain SpO2 >90% #Renal -Continue Lasix IV 20mg daily #Oncology -morphine 15mg PO PRN q8 -continue home tamoxifen 20mg BID -Oncology (Dr. Arreaga) consulted, appreciate recommendations #GI -Monitor bowel function -Zofran prn for nausea #Endocrine -10U levemir BID -BGM ACHS -Insulin sliding scale #FEN -IVF held -Monitory daily lytes -Diabetic/low fat diet #PPX -DVT ppx - lovenox 80mg BID -GI ppx - famotidine 20mg IVPB bid d/w Dr. Harley Barksdale, PGY-1 Visit type - Emergency Visit Emergency Visit: No - New Patient This patient is new to me today: No - Critical Care Critical Care patient: Yes Total Critical Care Time (in minutes): 35 Critical Care Statement: The care of this patient involved high complexity decision making to prevent further life threatening deterioration of the patient 's condition and/or to evaluate & treat vital organ system(s) failure or risk of failure.
[2016-12-19] MEDS ORDERED: PT OWN MED DRAWER 7, Y5N ONE ×2 (09:50→21:12)
[2016-12-19] MEDS: ASPIRIN 81 MG CHEWABLE TABLETS PO SCH (09:58)
[2016-12-19] MEDS: FAMOTIDINE 20 MG/50 ML IVPB 50 ML IVPB SCH (09:59)
[2016-12-19] MEDS: methylPREDNISolone NA SUCC 40 MG/1 ML VIAL IVPB SCH (09:59)
[2016-12-19] MEDS: NEBIVOLOL 5 MG TABLET (FP) PO SCH (10:00)
[2016-12-19] MEDS: TAMOXIFEN CITRATE 10 MG TABLET PO SCH (10:01)
[2016-12-19] MEDS: BUDESONIDE/FORMETEROL FUMARATE 160/4.5 mcg INHALER IH SCH ×2 (10:03→21:20)
[2016-12-19] MEDS: ACLIDINIUM BROMIDE 400 MCG/INH AERO.POWD IH SCH ×2 (10:04→21:20)
[2016-12-19] MEDS: PREDNISOLONE 1% OS SCH ×4 (10:05→21:23)
[2016-12-19] MEDS: BROMFENAC OS SCH (10:06)
[2016-12-19] MEDS: MOXIFLOXACIN OS SCH ×4 (10:06→21:15)
[2016-12-19] MEDS: NYSTATIN POWDER 100,000 UNITS/GM - 15 GM TOPICAL POWDER TP SCH (10:07)
[2016-12-19] MEDS: ENOXAPARIN NA (PORCINE) 80 MG/0.8 ML DISP.SYRIN SQ SCH ×2 (11:30→21:13)
[2016-12-19] MEDS ORDERED: HEMOQUE TEST 1 EACH EACH ONE (12:15)
--- NOTE | 2016-12-19 12:19 | PN ---
Progress Note (short form) - Note Progress Note: No acute events Tolerating diet No pain Vital Signs Period Temp Pulse Resp BP Sys/Encarnacion Pulse Ox Last 24 Hr 98.2 F-99.3 F 79-112 13-25 117-156/65-110 Abd soft, NT CBC, BMP 12/19/16 05:15 12/19/16 05:15 Diet as tolerated OOB Problem List - Problems (1) Abdominal pain Code(s): R10.9 - UNSPECIFIED ABDOMINAL PAIN Qualifiers: Abdominal location: unspecified location Qualified Code(s): R10.9 - Unspecified abdominal pain (2) NSTEMI (non-ST elevated myocardial infarction) Code(s): I21.4 - NON-ST ELEVATION (NSTEMI) MYOCARDIAL INFARCTION (3) Fecal impaction of colon Code(s): K56.41 - FECAL IMPACTION
[2016-12-19] MEDS: ONDANSETRON 4 MG/2 ML VIAL IVPB PRN (12:24)
[2016-12-19] MEDS ORDERED: POLYETHYLENE GLYCOL 3350 119 GM BTL PO ONE (13:01)
--- NOTE | 2016-12-19 13:01 | PN ---
Teaching Attending Note Name of Resident: Cindy Barksdale ATTENDING PHYSICIAN STATEMENT I saw and evaluated the patient. I reviewed the resident's note and discussed the case with the resident. I agree with the resident's findings and plan as documented. SUBJECTIVE: Pt seen and examined in the ICU. States she still feels congested, +cough with bloody specks and wheezing. OBJECTIVE: Last Vital Signs Temp Pulse Resp BP Pulse Ox 99.3 F 99 H 20 125/69 100 12/19/16 10:00 12/19/16 12:00 12/19/16 12:00 12/19/16 12:00 12/17/16 20:26 Intake & Output 12/16/16 12/17/16 12/18/16 12/19/16 23:59 23:59 23:59 23:59 Intake Total 1390 1480 900 200 Output Total 900 3350 1001 400 Balance 490 -1870 -101 -200 Weight 194 lb 0.108 oz 195 lb 1.745 oz 194 lb 0.108 oz 194 lb 0.108 oz Gen: NAD in chair Heart: RRR Lung: scattered rhonchi, wheezes Abd: soft, nontender Ext: + edema CBC, BMP 12/19/16 05:15 12/19/16 05:15 Active Medications Acetaminophen (Ofirmev Injection -) 1,000 mg IVPB Q6H PRN PRN Reason: FEVER OR PAIN Stop: 12/19/16 23:59 Aclidinium [place] (Tudorza -) 1 puff IH BID [facility] Last Admin: 12/19/16 10:04 Dose: 1 puff Albuterol Sulfate (Ventolin 0.5% -) 1 amp NEB QIDR [facility] Last Admin: 12/19/16 11:03 Dose: 1 amp Artificial Tears (Artificial Tears) 1 drop OU QID PRN PRN Reason: DRY EYES Aspirin (Asa -) 81 mg PO DAILY [facility] Last Admin: 12/19/16 09:58 Dose: 81 mg Atorvastatin Calcium (Lipitor -) 40 mg PO HS [facility] Last Admin: 12/18/16 21:34 Dose: 40 mg Budesonide/Formoterol Fumarate (Symbicort 160/4.5mcg -) 2 puff IH BID [facility] Last Admin: 12/19/16 10:03 Dose: 2 puff Clotrimazole (Mycelex Larry's -) 10 mg PO 5XD [facility] Last Admin: 12/19/16 10:02 Dose: 10 mg Enoxaparin Sodium (Lovenox -) 80 mg SQ BID [facility] Last Admin: 12/19/16 11:30 Dose: 80 mg Furosemide (Lasix Injection -) 20 mg IVPUSH BID@0600,1400 [facility] Last Admin: 12/19/16 05:58 Dose: 20 mg Famotidine/Sodium Chloride (Pepcid 20 Mg Premixed Ivpb -) 50 mls @ 100 mls/hr IVPB BID [facility] Last Admin: 12/19/16 09:59 Dose: 100 mls/hr Insulin Aspart (Novolog Vial Sliding Scale -) 1 vial SQ ACHS [facility] PRN Reason: Protocol Last Admin: 12/19/16 12:24 Dose: 8 units Insulin Detemir (Levemir Vial) 10 units SQ BIDI [facility] Last Admin: 12/19/16 07:29 Dose: 10 units Levothyroxine Sodium (Synthroid -) 100 mcg PO DAILY@0700 [facility] Last Admin: 12/19/16 06:28 Dose: 100 mcg Montelukast Sodium (Singulair -) 10 mg PO HS [facility] Last Admin: 12/18/16 21:35 Dose: 10 mg Nebivolol (Bystolic -) 5 mg PO DAILY [facility] Last Admin: 12/19/16 10:00 Dose: 5 mg Pt's Own Med: Prednisolone Opht Susp 1% 1 each OS QID [facility] Last Admin: 12/19/16 10:05 Dose: 1 each Pt's Own Med: Bromfenac Opht Kandace/0.09% 1 each OS DAILY [facility] Last Admin: 12/19/16 10:06 Dose: 1 each Pt's Own Med: Moxifloxacin Opht Kandace:0.5% 1 each OS QID [facility] Last Admin: 12/19/16 10:06 Dose: 1 each Nystatin (Nystop Powder -) 1 applic TP BID [facility] Last Admin: 12/19/16 10:07 Dose: 1 applic Ondansetron HCl (Zofran Injection) 4 mg IVPB Q6H PRN PRN Reason: NAUSEA Last Admin: 12/19/16 12:24 Dose: 4 mg Oxycodone HCl (Roxicodone -) 15 mg PO Q8H PRN PRN Reason: PAIN Last Admin: 12/19/16 05:57 Dose: 15 mg Prednisone (Deltasone -) 60 mg PO DAILY [facility] Tamoxifen Citrate (Tamoxifen Citrate) 20 mg PO BID [facility] Last Admin: 12/19/16 10:01 Dose: 20 mg ASSESSMENT AND PLAN: Metastatic Cervical Ca with Lung Mets Acute COPD Exacerbation Acute NSTEMI Partial Small Bowel Obstruction HTN DM h/o DVT - prednisone taper - inhaled bronchodilators standing and PRN - O2 to keep Spo2 >90% - ASA - continue anticoagulation - glucose control while systemic steroids - monitor bowel function - can monitor on telemetry
[2016-12-19] MEDS ORDERED: DOCUSATE SODIUM 100 MG CAPSULE (FP) PO PRN (13:05)
[2016-12-19] MEDS: SENNOSIDES 8.6MG TABLET (FP) PO SCH ×2 (14:00→21:13)
--- NOTE | 2016-12-19 14:15 | PN ---
Progress Note (short form) - Note Progress Note: Last Vital Signs still remains in the ICU. O/E: Constitutional: Yes: Well Nourished, No Distress, on nasal canula, alvarado faced Eyes: Yes: Conjunctiva Clear, EOM Intact HENT: Yes: Atraumatic, Normocephalic Neck: Yes: Supple Cardiovascular: Yes: Regular Rate and Rhythm Respiratory: Yes: wheezes present in the RLL Gastrointestinal: Yes: Normal Bowel Sounds Temp Pulse Resp BP Pulse Ox 99.3 F 99 H 20 125/69 100 12/19/16 10:00 12/19/16 12:00 12/19/16 12:00 12/19/16 12:00 12/17/16 20:26 CBC, BMP 12/19/16 05:15 12/19/16 05:15 Current Medications Generic Name Dose Route Start Last Admin Trade Name Freq PRN Reason Stop Dose Admin Acetaminophen 1,000 mg 12/19/16 05:58 Ofirmev Injection - IVPB 12/19/16 23:59 Q6H PRN FEVER OR PAIN Aclidinium [place] 1 puff 12/15/16 22:00 12/19/16 10:04 Tudorza - IH 1 puff BID [facility] Administration Albuterol Sulfate 1 amp 12/15/16 18:00 12/19/16 11:03 Ventolin 0.5% - NEB 1 amp QIDR [facility] Administration Alprazolam 0.5 mg 12/19/16 13:09 Xanax - PO Q8H PRN ANXIETY Artificial Tears 1 drop 12/15/16 12:53 Artificial Tears OU QID PRN DRY EYES Aspirin 81 mg 12/16/16 10:00 12/19/16 09:58 Asa - PO 81 mg DAILY [facility] Administration Atorvastatin Calcium 40 mg 12/17/16 22:00 12/18/16 21:34 Lipitor - PO 40 mg HS [facility] Administration Budesonide/Formoterol Fumarate 2 puff 12/15/16 22:00 12/19/16 10:03 Symbicort 160/4.5mcg - IH 2 puff BID [facility] Administration Clotrimazole 10 mg 12/17/16 14:00 12/19/16 10:02 Mycelex Larry's - PO 10 mg 5XD [facility] Administration Docusate Sodium 100 mg 12/19/16 13:05 Colace - PO BID PRN CONSTIPATION Enoxaparin Sodium 80 mg 12/15/16 22:00 12/19/16 11:30 Lovenox - SQ 80 mg BID [facility] Administration Furosemide 20 mg 12/17/16 06:00 12/19/16 05:58 Lasix Injection - IVPUSH 20 mg BID@0600,1400 [facility] Administration Famotidine/Sodium Chloride 50 mls @ 100 mls/hr 12/15/16 13:00 12/19/16 09:59 Pepcid 20 Mg Premixed Ivpb - IVPB 100 mls/hr BID [facility] Administration Insulin Aspart 1 vial 12/17/16 16:30 12/19/16 12:24 Novolog Vial Sliding Scale - SQ 8 units ACHS [facility] Administration Protocol Insulin Detemir 10 units 12/15/16 12:48 12/19/16 07:29 Levemir Vial SQ 10 units BIDI [facility] Administration Levothyroxine Sodium 100 mcg 12/16/16 07:00 12/19/16 06:28 Synthroid - PO 100 mcg DAILY@0700 [facility] Administration Montelukast Sodium 10 mg 12/15/16 22:00 12/18/16 21:35 Singulair - PO 10 mg HS [facility] Administration Nebivolol 5 mg 12/18/16 10:00 12/19/16 10:00 Bystolic - PO 5 mg DAILY [facility] Administration Pt's Own Med: 1 each 12/15/16 22:00 12/19/16 10:05 Prednisolone Opht OS 1 each Susp 1% QID [facility] Administration Pt's Own Med: 1 each 12/16/16 10:00 12/19/16 10:06 Bromfenac Opht Kandace/ OS 1 each 0.09% DAILY [facility] Administration Pt's Own Med: 1 each 12/15/16 22:00 12/19/16 10:06 Moxifloxacin Opht OS 1 each Kandace:0.5% QID [facility] Administration Nystatin 1 applic 12/17/16 22:00 12/19/16 10:07 Nystop Powder - TP 1 applic BID [facility] Administration Ondansetron HCl 4 mg 12/15/16 14:40 12/19/16 12:24 Zofran Injection IVPB 4 mg Q6H PRN Administration NAUSEA Oxycodone HCl 15 mg 12/16/16 14:57 12/19/16 13:12 Roxicodone - PO 15 mg Q8H PRN Administration PAIN Prednisone 60 mg 12/20/16 10:00 Deltasone - PO DAILY [facility] Senna 1 tab 12/19/16 13:15 Senna - PO BID [facility] Metastatic Endometrial Ca to the Lungs with progression of disease NSTEMI acute COPD exacerbation s/p recent Eye surgery h/o DVT -will f.u CT chest -f/u tumor markers -Once acute issues resolves, COPD/NSTEMI, will need to consider treatment for the cancer. -On therapeutic lovenox for DVT -pulm/cardiology follow-up appreciated -d/w Hospitalist
[2016-12-19] MEDS: ALPRAZolam 0.25 MG TABLET PO PRN ×2 (15:04→22:14)
[2016-12-19] MEDS ORDERED: ALBUTEROL SO4 0.083% IH SOL 2.5 MG/3 ML VIAL.NEB. NEB ONE ×2 (17:09→23:24)
--- NOTE | 2016-12-19 17:53 | CON.PSY ---
Psychiatry Consult Chief Complaint: I feel anxious and depressed. I dont sleep well. have bad appetite. Symptoms: reports: Depressed Mood, Appetite Disturbance, Sleep Disturbance, Decreased Motivation - Previous Psychiatric Treatment Outpatient: None Inpatient: None - Previous Substance Abuse Treatment Outpatient: None Inpatient: None - Current Medications Current Medications: Active Medications Acetaminophen (Ofirmev Injection -) 1,000 mg IVPB Q6H PRN PRN Reason: FEVER OR PAIN Stop: 12/19/16 23:59 Aclidinium [place] (Tudorza -) 1 puff IH BID [facility] Last Admin: 12/19/16 10:04 Dose: 1 puff Albuterol Sulfate (Ventolin 0.5% -) 1 amp NEB QIDR [facility] Last Admin: 12/19/16 17:24 Dose: 1 amp Alprazolam (Xanax -) 0.5 mg PO Q8H PRN PRN Reason: ANXIETY Last Admin: 12/19/16 15:04 Dose: 0.5 mg Artificial Tears (Artificial Tears) 1 drop OU QID PRN PRN Reason: DRY EYES Aspirin (Asa -) 81 mg PO DAILY [facility] Last Admin: 12/19/16 09:58 Dose: 81 mg Atorvastatin Calcium (Lipitor -) 40 mg PO HS [facility] Last Admin: 12/18/16 21:34 Dose: 40 mg Budesonide/Formoterol Fumarate (Symbicort 160/4.5mcg -) 2 puff IH BID [facility] Last Admin: 12/19/16 10:03 Dose: 2 puff Clotrimazole (Mycelex Larry's -) 10 mg PO 5XD [facility] Last Admin: 12/19/16 15:09 Dose: 10 mg Docusate Sodium (Colace -) 100 mg PO BID PRN PRN Reason: CONSTIPATION Enoxaparin Sodium (Lovenox -) 80 mg SQ BID [facility] Last Admin: 12/19/16 11:30 Dose: 80 mg Furosemide (Lasix Injection -) 20 mg IVPUSH BID@0600,1400 [facility] Last Admin: 12/19/16 15:05 Dose: 20 mg Famotidine/Sodium Chloride (Pepcid 20 Mg Premixed Ivpb -) 50 mls @ 100 mls/hr IVPB BID [facility] Last Admin: 12/19/16 09:59 Dose: 100 mls/hr Insulin Aspart (Novolog Vial Sliding Scale -) 1 vial SQ ACHS [facility] PRN Reason: Protocol Last Admin: 12/19/16 12:24 Dose: 8 units Insulin Detemir (Levemir Vial) 10 units SQ BIDI [facility] Last Admin: 12/19/16 07:29 Dose: 10 units Levothyroxine Sodium (Synthroid -) 100 mcg PO DAILY@0700 [facility] Last Admin: 12/19/16 06:28 Dose: 100 mcg Montelukast Sodium (Singulair -) 10 mg PO HS [facility] Last Admin: 12/18/16 21:35 Dose: 10 mg Nebivolol (Bystolic -) 5 mg PO DAILY [facility] Last Admin: 12/19/16 10:00 Dose: 5 mg Pt's Own Med: Prednisolone Opht Susp 1% 1 each OS QID [facility] Last Admin: 12/19/16 15:10 Dose: 1 each Pt's Own Med: Bromfenac Opht Kandace/0.09% 1 each OS DAILY [facility] Last Admin: 12/19/16 10:06 Dose: 1 each Pt's Own Med: Moxifloxacin Opht Kandace:0.5% 1 each OS QID [facility] Last Admin: 12/19/16 15:09 Dose: 1 each Nystatin (Nystop Powder -) 1 applic TP BID [facility] Last Admin: 12/19/16 10:07 Dose: 1 applic Ondansetron HCl (Zofran Injection) 4 mg IVPB Q6H PRN PRN Reason: NAUSEA Last Admin: 12/19/16 12:24 Dose: 4 mg Prednisone (Deltasone -) 60 mg PO DAILY [facility] Senna (Senna -) 1 tab PO BID [facility] - Allergies Allergies: Allergies Allergy/AdvReac Type Severity Reaction Status Date / Time Penicillins Allergy Unknown Hives Verified 12/14/16 22:41 - Current Living Status Usual Living Arrangement: With Significant Other - Current Mental Status Evaluation Appearance: Well Groomed Attitude: Cooperative - Affect Affect: Constrictive - Mood Mood: Depressed, Anxious - Speech/Language Expressive: Coherent - Psychomotor Activity Psychomotor Activity: Slowed - Thought Process Thought Process: Intact - Thought Content Hallucinations: Absent Delusions: Absent - Self Perception Self Perception: No Impairment - Cognition Attention: Alert Orientation: Time Memory, Immediate Recall: Intact Memory, Short Term: 2/3 Memory, Remote with Promptin/3 - Concentration Serial Sevens Intact: No Simple Calculations Intact: No - Abstraction Proverb Interpretation: Intact Judgement: Intact - Insight Insight: Intact - Impulse Control Impulse Control: Good Control - Suicidal Ideation Suicidal Ideation: No - Homicidal Ideation Homicidal Ideation: No Assessment/Plan 1) start Remeron 15mg po hs for depression.
--- NOTE | 2016-12-19 18:20 | PN ---
Teaching Attending Note Name of Resident: Patrice Bradford ATTENDING PHYSICIAN STATEMENT I saw and evaluated the patient. I reviewed the resident's note and discussed the case with the resident. I agree with the resident's findings and plan as documented. SUBJECTIVE: breathing has improved, abd pain improved. no cough . last BM 2 days ago. OBJECTIVE: NAD CV : RRR Lungs : minimal wheezing heard on exam. minimal crackkles at L base Abd: soft, ND , TTP in All quadrants darryl lower part. no rebound tenderness or guarding Ext: 2+ pitting edema A/P 66 y/o lady with multiple medical problems including HTN, DVT, IDDM, hypothyroidism, asthma, and endometrial cancer with lung mets who presented with Abd pain and SOB and was found to have asthma exacerbation , SBO , and NSTEMI. 1- NSTEMI : Echo reviewed , S and D dysfunction . - cont ASA , BB , and statin - medical mgt 2- PArtial SBO: resolved,. tolerated diet . had BM 2 days ago - start senna and colace 3- Athma/COPD exacerbation : improved - switch to po prednisone 60 daily - cont Nebs and inhalers - cont singular - PPI for GI px 4- Acute S , and D CHF : cont IV lasix. might be able to switch to po lasix tomorrow 5- H/o endometrial cancer with mets. - Refused CT of chest today, will try tomorrow - D/w Dr. Boss. off tamoxifen 6- HTN: cont nebivelol . was on losartan at dc last admission . will confirm 7- Hypothyroidism , cont synthroid, TFTs as outp t. 8- IDDM : cont Levemir and SSI pending tx to floor
[2016-12-19] MEDS: MONTELUKAST NA 10 MG TABLET PO SCH (21:13)
[2016-12-19] MEDS: MIRTAZAPINE 15 MG TABLET (FP) PO SCH (21:13)
[2016-12-19] MEDS: ATORVASTATIN CA 40 MG TABLET (FP) PO SCH (21:13)
[2016-12-19] MEDS ORDERED: oxyCODONE HCL 5 MG TABLET PO ONE (21:45)
--- NOTE | 2016-12-19 22:11 | PN ---
Addendum entered and electronically signed by Patrice Bradford, RES 12/19/16 22:17: GENERAL: elderly female sitting in bed eating breakfast in NAD HEAD: Normal with no signs of trauma. alvarado facies EYES: Pupils equal, round and reactive to light, extraocular movements intact, sclera anicteric, conjunctiva clear. No lid lag. EARS, NOSE, THROAT: Ears normal, nares patent, oropharynx clear without exudates. Moist mucous membranes. + hirsutism NECK: Normal range of motion, supple without lymphadenopathy, JVD, or masses. LUNGS: diffuse rhonchi, no wheezing HEART: tachycardic, normal S1 and S2 without murmur, rub or gallop. ABDOMEN: distended, abnormal masses, minimally tender, lower quadrant ecchymosis , no rebound tenderness, no guarding, + central adiposity UPPER EXTREMITIES: 2+ pulses, warm, well-perfused. No cyanosis. No clubbing. No peripheral edema. multiple ecchymoses LOWER EXTREMITIES: 2+ b/l LE pitting edema. right foot has amputations of 3rd, 4th, and 5th toes. longitudinal healed scar along medial left LE NEUROLOGICAL: Cranial nerves II-XII intact. language is normal SKIN: Warm, dry, normal turgor, no rashes or lesions noted, normal capillary refill. Addendum entered and electronically signed by Patrice Bradford, LYDIA 12/19/16 22:12: Subjective: No acute events overnight. Pt endorses nausea, improved with zofran, without emesis. She also endorses decreased appetite, and some constipation with last BM 2 days ago. She states that she has a cough with red-brown thick sputum. She states that her SOB is at baseline. She denies headache, chest pain, and dysuria. Objective: Original Note: Physical Exam: SUBJECTIVE: Patient seen and examined OBJECTIVE: Vital Signs Period Temp Pulse Resp BP Sys/Encarnacion Pulse Ox Last 24 Hr 98.2 F-99.8 F 79-101 13-21 114-156/65-82 GENERAL: The patient is awake, alert, and fully oriented, in no acute distress. HEAD: Normal with no signs of trauma. EYES: PERRL, extraocular movements intact, sclera anicteric, conjunctiva clear. No ptosis. ENT: Ears normal, nares patent, oropharynx clear without exudates, moist mucous membranes. NECK: Trachea midline, full range of motion, supple. LUNGS: Breath sounds equal, clear to auscultation bilaterally, no wheezes, no crackles, no accessory muscle use. HEART: Regular rate and rhythm, S1, S2 without murmur, rub or gallop. ABDOMEN: Soft, nontender, nondistended, normoactive bowel sounds, no guarding, no rebound, no hepatosplenomegaly, no masses. EXTREMITIES: 2+ pulses, warm, well-perfused, no edema. NEUROLOGICAL: Cranial nerves II through XII grossly intact. Normal speech, gait not observed. PSYCH: Normal mood, normal affect. SKIN: Warm, dry, normal turgor, no rashes or lesions noted Laboratory Results - last 24 hr 12/18/16 12/19/16 12/19/16 23:45 05:15 05:15 WBC 10.0 RBC 4.15 Hgb 11.1 Hct 33.7 MCV 81.2 MCH 26.8 MCHC 33.0 RDW 16.7 H Plt Count 216 MPV 8.2 Sodium 139 Potassium 4.7 Chloride 96 L Carbon Dioxide 37 H D Anion Gap 6 L BUN 25 H Creatinine 1.0 Creat Clearance w eGFR 55.64 POC Glucometer [phone] Random Glucose 208 H Calcium 9.1 Phosphorus 3.8 D Magnesium 2.0 Total Bilirubin 0.4 D AST 18 ALT 34 Alkaline Phosphatase 96 Total Protein 5.7 L Albumin 2.6 L 12/19/16 12/19/16 06:43 12:20 WBC RBC Hgb Hct MCV MCH MCHC RDW Plt Count MPV Sodium Potassium Chloride Carbon Dioxide Anion Gap BUN Creatinine Creat Clearance w eGFR POC Glucometer [phone] Random Glucose Calcium Phosphorus Magnesium Total Bilirubin AST ALT Alkaline Phosphatase Total Protein Albumin Active Medications Generic Name Dose Route Start Last Admin Trade Name Freq PRN Reason Stop Dose Admin Acetaminophen 1,000 mg 12/19/16 05:58 Ofirmev Injection - IVPB 12/19/16 23:59 Q6H PRN FEVER OR PAIN Aclidinium [place] 1 puff 12/15/16 22:00 12/19/16 21:20 Tudorza - IH 1 puff BID RAFA Administration Albuterol Sulfate 1 amp 12/15/16 18:00 12/19/16 17:24 Ventolin 0.5% - NEB 1 amp QIDR RAFA Administration Alprazolam 0.5 mg 12/19/16 13:09 12/19/16 15:04 Xanax - PO 0.5 mg Q8H PRN Administration ANXIETY Artificial Tears 1 drop 12/15/16 12:53 Artificial Tears OU QID PRN DRY EYES Aspirin 81 mg 12/16/16 10:00 12/19/16 09:58 Asa - PO 81 mg DAILY RAFA Administration Atorvastatin Calcium 40 mg 12/17/16 22:00 12/19/16 21:13 Lipitor - PO 40 mg HS RAFA Administration Budesonide/Formoterol Fumarate 2 puff 12/15/16 22:00 12/19/16 21:20 Symbicort 160/4.5mcg - IH 2 puff BID RAFA Administration Clotrimazole 10 mg 12/17/16 14:00 12/19/16 21:16 Mycelex Larry's - PO 10 mg 5XD RAFA Administration Docusate Sodium 100 mg 12/19/16 13:05 Colace - PO BID PRN CONSTIPATION Enoxaparin Sodium 80 mg 12/15/16 22:00 12/19/16 21:13 Lovenox - SQ 80 mg BID RAFA Administration Furosemide 20 mg 12/17/16 06:00 12/19/16 15:05 Lasix Injection - IVPUSH 20 mg BID@0600,1400 RAFA Administration Insulin Aspart 1 vial 12/17/16 16:30 12/19/16 21:33 Novolog Vial Sliding Scale - SQ 2 units ACHS RAFA Administration Protocol Insulin Detemir 10 units 12/15/16 12:48 12/19/16 18:17 Levemir Vial SQ 10 units BIDI RAFA Administration Levothyroxine Sodium 100 mcg 12/16/16 07:00 12/19/16 06:28 Synthroid - PO 100 mcg DAILY@0700 RAFA Administration Mirtazapine 15 mg 12/19/16 22:00 12/19/16 21:13 Remeron - PO 15 mg HS RAFA Administration Montelukast Sodium 10 mg 12/15/16 22:00 12/19/16 21:13 Singulair - PO 10 mg HS RAFA Administration Nebivolol 5 mg 12/18/16 10:00 12/19/16 10:00 Bystolic - PO 5 mg DAILY RAFA Administration Pt's Own Med: 1 each 12/15/16 22:00 12/19/16 21:23 Prednisolone Opht OS 1 each Susp 1% QID RAFA Administration Pt's Own Med: 1 each 12/16/16 10:00 12/19/16 10:06 Bromfenac Opht Kandace/ OS 1 each 0.09% DAILY RAFA Administration Pt's Own Med: 1 each 12/15/16 22:00 12/19/16 21:15 Moxifloxacin Opht OS 1 each Kandace:0.5% QID RAFA Administration Nystatin 1 applic 12/17/16 22:00 12/19/16 10:07 Nystop Powder - TP 1 applic BID RAFA Administration Ondansetron HCl 4 mg 12/15/16 14:40 12/19/16 12:24 Zofran Injection IVPB 4 mg Q6H PRN Administration NAUSEA Pantoprazole Sodium 40 mg 12/20/16 10:00 Protonix - PO DAILY RAFA Prednisone 60 mg 12/20/16 10:00 Deltasone - PO DAILY RAFA Senna 1 tab 12/19/16 13:15 12/19/16 21:13 Senna - PO 1 tab BID RAFA Administration ASSESSMENT/PLAN: 66F w/ hx of endometrial cancer w/ mets to lungs on tamoxifen, asthma, COPD diastolic CHF, IDDM, DVT, HTN, HLD, hypothyroidism, presenting with abdominal pain, found to have NSTEMI, COPD exacerbation, and partial SBO on CT, improving. 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 Moise on board -continue ASA 81, lipitor 40, and lovenox 80 #abdominal pain -2/[address] -pain control: continue home oxycodone 15mg q8h -pepcid -zofran 4mg q6h PRN -Dr. Camargo on board, appreciated recs to continue diet as tolerated -had BM each day in hospital, but no BM in last 2 days -started senna and colace #SOB -2/2 lung mets and COPD exacerbation vs. chf exacerbation -2L O2 via NC, maintain O2 > 90 -continue singulair 10, symbicort BID, ventolin q6h PRN -IV solumedrol 40mg BID changed to PO prednisone 60mg qd #tachycardia -HR 70-80s today -continue nebivolol 5mg PO qd -monitor BP and HR as well as O2 sat and breathing #depression -psych on board, appreciate recs to start remeron. #SARAH -creatinine of 1 today, resolved -2+ lower extremity edema -lasix 20 IV #uterine cancer -home tamoxifen 20 BID discontinued as per oncology -palliative care team consulted, pt has poor prognosis -Dr. Arreaga on board, appreciate recs -repeat CT chest ordered as per oncology, f/u #leukocytosis -likely due to prednisone -wbc count of 10 today, down from 19 on admission -blood cx- no growth to date -urine cx- no growth #IDDM -10U levemir BID -SSI -resume home dose of 40U levemir BID once pt is started on diet #HLD -continue atorvastatin 40mg -LDL of 115 #Hypothyroid -continued home dose of levothyroxine 100mg #asthma -2L O2 via NC -continue singulair 10, symbicort BID, ventolin q6h PRN -IV solumedrol 40mg BID changed to PO prednisone 60mg qd #HTN -continue lasix 20 IV BID, will consider switching to PO nick #diastolic CHF -continue lasix 20 IV BID, will consider switching to PO nick -continue ASA 81 #advanced directives -spoke with pt about her advanced directives. Pt states that she hasn't discussed it with her yet but will now #FEN/ppx -no fluids -electrolytes wnl -fat/sodium controlled diet -pepcid -lovenox 80 Patrice Bradford MD PGY1 Visit type - Emergency Visit Emergency Visit: Yes ED Registration Date: 12/15/16 Care time: The patient presented to the Emergency Department on the above date and was hospitalized for further evaluation of their emergent condition. - New Patient This patient is new to me today: No - Critical Care Critical Care patient: No
[2016-12-20 06:05] LABS: BASOPHIL 0.2 % (0-2.0); EOSINOPHIL 0.5 % (0-4.5); MCH 26.7 pg (25.7-33.7); MEAN CELL VOLUME 81.1 fl (80-96); MEAN PLT VOLUME 8.3 fl (7.5-11.1); NEUTROPHILS 72.6 % (42.8-82.8); PLATELET COUNT 226 K/MM3 (134-434); RDW 17.2 % (11.6-15.6); WHITE BLOOD COUNT 11.9 K/mm3 (4.0-10.0)
[2016-12-20] MEDS: FUROSEMIDE 40 MG/4 ML INJECTABLE VIAL IVPUSH SCH (06:17)
[2016-12-20] MEDS: INSULIN DETEMIR 100 UNITS/ML MDV SQ SCH ×3 (06:18→22:56)
[2016-12-20] MEDS: INSULIN SLIDING SCALE (NOVOLOG) 1 VIAL SQ SCH ×4 (06:18→22:57)
[2016-12-20] MEDS: LEVOTHYROXINE NA 100 MCG TABLET (FP) PO SCH (06:19)
[2016-12-20] MEDS: CLOTRIMAZOLE 10 MG TROCHE (FP) PO SCH ×5 (06:22→23:36)
[2016-12-20 06:28] LABS: ALBUMIN 2.7 g/dl (3.4-5.0); ANION GAP 6 (8-16); BILIRUBIN,TOTAL 0.6 mg/dL (0.2-1.0); CALCIUM 8.7 mg/dL (8.5-10.1); CO2 36 mmol/L (21-32); CREATININE 1.1 mg/dL (0.55-1.02); GLUCOSE,RANDOM 61 mg/dL (74-106); PHOSPHOROUS 4.1 mg/dL (2.5-4.9); SGOT/AST 24 U/L (15-37); SGPT/ALT 32 U/L (12-78); TOT PROT 5.7 g/dl (6.4-8.2)
[2016-12-20 06:29] LABS: ALK PHOS 91 U/L (45-117)
[2016-12-20] MEDS: ALBUTEROL SO4 0.5 % INH SOLN 2.5 MG/0.5 ML VIAL.NEB. NEB SCH ×5 (06:37→23:06)
[2016-12-20] MEDS ORDERED: ALBUTEROL SO4 0.083% IH SOL 2.5 MG/3 ML VIAL.NEB. NEB ONE (06:41)
[2016-12-20] MEDS ORDERED: PT OWN MED DRAWER 7, Y5N ONE ×4 (06:49→22:20)
[2016-12-20] MEDS: ALPRAZolam 0.25 MG TABLET PO PRN ×2 (06:50→18:14)
[2016-12-20] MEDS: oxyCODONE HCL 5 MG TABLET PO PRN ×3 (09:03→22:32)
[2016-12-20] MEDS: ASPIRIN 81 MG CHEWABLE TABLETS PO SCH (09:04)
[2016-12-20] MEDS: ENOXAPARIN NA (PORCINE) 80 MG/0.8 ML DISP.SYRIN SQ SCH ×2 (09:04→22:31)
[2016-12-20] MEDS: NEBIVOLOL 5 MG TABLET (FP) PO SCH (09:05)
[2016-12-20] MEDS: DOCUSATE SODIUM 100 MG CAPSULE (FP) PO SCH ×2 (09:05→22:33)
[2016-12-20] MEDS: SENNOSIDES 8.6MG TABLET (FP) PO SCH ×2 (09:06→22:31)
[2016-12-20] MEDS: ACLIDINIUM BROMIDE 400 MCG/INH AERO.POWD IH SCH ×2 (09:06→22:34)
[2016-12-20] MEDS: PREDNISOLONE 1% OS SCH ×4 (09:06→22:33)
[2016-12-20] MEDS: MOXIFLOXACIN OS SCH ×4 (09:06→22:33)
[2016-12-20] MEDS: NYSTATIN POWDER 100,000 UNITS/GM - 15 GM TOPICAL POWDER TP SCH ×2 (09:06→22:33)
[2016-12-20] MEDS: BROMFENAC OS SCH (09:06)
[2016-12-20] MEDS: BUDESONIDE/FORMETEROL FUMARATE 160/4.5 mcg INHALER IH SCH ×2 (09:06→22:33)
[2016-12-20] MEDS: predniSONE 20 MG TABLET (UD) PO SCH (09:14)
[2016-12-20] MEDS: PANTOPRAZOLE 40 MG TABLET (FP) PO SCH (09:14)
--- NOTE | 2016-12-20 09:49 | PN ---
Progress Note, Physician Chief Complaint: Patient seen in ICU, currently awake and alert. Complains of more weakness and persistent shortness of breath Still with sinus tachycardia at 100-110 bpm History of Present Illness: Patient was seen and examined. Chart was reviewed Denies chest pain or palpitations Persistent shortness of breath - Current Medication List Current Medications: Active Medications Aclidinium [place] (Tudorza -) 1 puff IH BID [facility] Last Admin: 12/20/16 09:06 Dose: 1 puff Albuterol Sulfate (Ventolin 0.5% -) 1 amp NEB QIDR [facility] Last Admin: 12/20/16 06:37 Dose: 1 amp Alprazolam (Xanax -) 0.5 mg PO Q8H PRN PRN Reason: ANXIETY Last Admin: 12/20/16 06:50 Dose: 0.5 mg Artificial Tears (Artificial Tears) 1 drop OU QID PRN PRN Reason: DRY EYES Aspirin (Asa -) 81 mg PO DAILY [facility] Last Admin: 12/20/16 09:04 Dose: 81 mg Atorvastatin Calcium (Lipitor -) 40 mg PO HS [facility] Last Admin: 12/19/16 21:13 Dose: 40 mg Budesonide/Formoterol Fumarate (Symbicort 160/4.5mcg -) 2 puff IH BID [facility] Last Admin: 12/20/16 09:06 Dose: 2 puff Clotrimazole (Mycelex Larry's -) 10 mg PO 5XD [facility] Last Admin: 12/20/16 09:06 Dose: 10 mg Docusate Sodium (Colace -) 100 mg PO BID [facility] Last Admin: 12/20/16 09:05 Dose: Not Given Enoxaparin Sodium (Lovenox -) 80 mg SQ BID [facility] Last Admin: 12/20/16 09:04 Dose: 80 mg Furosemide (Lasix -) 60 mg PO DAILY ONE Stop: 12/21/16 10:01 Insulin Aspart (Novolog Vial Sliding Scale -) 1 vial SQ ACHS [facility] PRN Reason: Protocol Last Admin: 12/20/16 06:18 Dose: Not Given Insulin Detemir (Levemir Vial) 10 units SQ BIDI [facility] Last Admin: 12/20/16 06:18 Dose: 10 units Levothyroxine Sodium (Synthroid -) 100 mcg PO DAILY@0700 [facility] Last Admin: 12/20/16 06:19 Dose: 100 mcg Mirtazapine (Remeron -) 15 mg PO HS [facility] Last Admin: 12/19/16 21:13 Dose: 15 mg Montelukast Sodium (Singulair -) 10 mg PO HS [facility] Last Admin: 12/19/16 21:13 Dose: 10 mg Nebivolol (Bystolic -) 5 mg PO DAILY [facility] Last Admin: 12/20/16 09:05 Dose: 5 mg Pt's Own Med: Prednisolone Opht Susp 1% 1 each OS QID [facility] Last Admin: 12/20/16 09:06 Dose: 1 each Pt's Own Med: Bromfenac Opht Kandace/0.09% 1 each OS DAILY [facility] Last Admin: 12/20/16 09:06 Dose: 1 each Pt's Own Med: Moxifloxacin Opht Kandace:0.5% 1 each OS QID [facility] Last Admin: 12/20/16 09:06 Dose: 1 each Nystatin (Nystop Powder -) 1 applic TP BID [facility] Last Admin: 12/20/16 09:06 Dose: 1 applic Ondansetron HCl (Zofran Injection) 4 mg IVPB Q6H PRN PRN Reason: NAUSEA Last Admin: 12/19/16 12:24 Dose: 4 mg Oxycodone HCl (Roxicodone -) 15 mg PO TID PRN PRN Reason: PAIN Last Admin: 12/20/16 09:03 Dose: 15 mg Pantoprazole Sodium (Protonix -) 40 mg PO DAILY [facility] Last Admin: 12/20/16 09:14 Dose: 40 mg Prednisone (Deltasone -) 60 mg PO DAILY [facility] Last Admin: 12/20/16 09:14 Dose: 60 mg Senna (Senna -) 1 tab PO BID [facility] Last Admin: 12/20/16 09:06 Dose: Not Given - Objective Vital Signs: Vital Signs Temperature 98.7 F 12/20/16 04:00 Pulse Rate 98 H 12/20/16 06:00 Respiratory Rate 19 12/20/16 06:00 Blood Pressure 133/64 12/20/16 06:00 O2 Sat by Pulse Oximetry (%) 96 12/19/16 21:00 Neck: Yes: Supple Cardiovascular: Yes: Regular Rate and Rhythm, Tachycardia, S1, S2 Respiratory: Yes: Diminished, Wheezes Gastrointestinal: Yes: Normal Bowel Sounds, Soft, Abdomen, Obese. No: Tenderness Edema: Yes Additional Findings/Remarks: - Review of Systems Constitutional: denies: Chills, Fever Cardiovascular: reports: Shortness of Breath denies: Chest Pain, Palpitations Respiratory: reports: SOB denies: Orthopnea, PND Gastrointestinal: denies: Abdominal Pain, Constipation, Diarrhea, Melena, Nausea , Rectal Bleeding, Vomiting Neurological: reports: Weakness. denies: Dizziness, Headache, Seizure, Syncope Labs: CBC, BMP 12/20/16 05:00 12/20/16 05:00 Problem List - Problems (1) Abdominal pain Code(s): R10.9 - UNSPECIFIED ABDOMINAL PAIN Qualifiers: Abdominal location: unspecified location Qualified Code(s): R10.9 - Unspecified abdominal pain (2) NSTEMI (non-ST elevated myocardial infarction) Code(s): I21.4 - NON-ST ELEVATION (NSTEMI) MYOCARDIAL INFARCTION (3) Cervical carcinoma Code(s): C53.9 - MALIGNANT NEOPLASM OF CERVIX UTERI, UNSPECIFIED (4) Diabetes Code(s): E11.9 - TYPE 2 DIABETES MELLITUS WITHOUT COMPLICATIONS Qualifiers: Diabetes mellitus type: type 2 Diabetes mellitus complication status: without complication (5) Endometrial cancer Code(s): C54.1 - MALIGNANT NEOPLASM OF ENDOMETRIUM (6) Hyperlipidemia Code(s): E78.5 - HYPERLIPIDEMIA, UNSPECIFIED Qualifiers: Hyperlipidemia type: unspecified Qualified Code(s): E78.5 - Hyperlipidemia, unspecified (7) Hypertension Code(s): I10 - ESSENTIAL (PRIMARY) HYPERTENSION Qualifiers: Hypertension type: essential hypertension Qualified Code(s): I10 - Essential (primary) hypertension (8) Hypothyroidism Code(s): E03.9 - HYPOTHYROIDISM, UNSPECIFIED Qualifiers: Hypothyroidism type: unspecified Qualified Code(s): E03.9 - Hypothyroidism, unspecified (9) Metastasis to lung Code(s): C78.00 - SECONDARY MALIGNANT NEOPLASM OF UNSPECIFIED LUNG (10) Obesity Code(s): E66.9 - OBESITY, UNSPECIFIED Assessment/Plan 1. Elevated troponin c/w NSTEMI, underlying CAD 2. 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 Hypertension 4. IDDM 5. Abdominal pain, etiology to be determined, probable impacted stool 6. COPD 7. RBBB 8. Sinus tachycardia PLAN: 1. Patient was started on Bystolic, but if it is not tolerated, Cardizem CD starting at 120 mg once a day may be tried instead - discussed with medical team on service 2. Currently on Lovenox 80 mg SQ BID 3. ASA as tolerated 4. Transthoracic echocardiography report was noted with borderline LV systolic function with anterior hypokinesia 5. Further recommendation regarding cardiac meds to follow 6. In view of multiple co-morbidities, would treat conservatively and optimize cardiac therapy 7. Continue pulmonary management Further plans are to follow. Janet Moise MD
--- NOTE | 2016-12-20 14:35 | PN ---
Teaching Attending Note Name of Resident: Cindy Barksdale ATTENDING PHYSICIAN STATEMENT I saw and evaluated the patient. I reviewed the resident's note and discussed the case with the resident. I agree with the resident's findings and plan as documented. SUBJECTIVE: Patient seen and examined in the ICU. Some mild increase in low back pain. Still with some congested cough. No hemoptysis. OBJECTIVE: Intake & Output 12/17/16 12/18/16 12/19/16 12/20/16 23:59 23:59 23:59 23:59 Intake Total 1480 900 900 120 Output Total 3350 1001 1200 Balance -1870 -101 -300 120 Weight 195 lb 1.745 oz 194 lb 0.108 oz 194 lb 0.108 oz 192 lb 0.362 oz Last Vital Signs Temp Pulse Resp BP Pulse Ox 98.2 F 78 19 154/66 96 12/20/16 10:00 12/20/16 12:00 12/20/16 12:00 12/20/16 12:00 12/19/16 21:00 Active Medications Aclidinium [place] (Tudorza -) 1 puff IH BID [facility] Last Admin: 12/20/16 09:06 Dose: 1 puff Albuterol Sulfate (Ventolin 0.5% -) 1 amp NEB QIDR RAFA Last Admin: 12/20/16 11:49 Dose: 1 amp Alprazolam (Xanax -) 0.5 mg PO Q8H PRN PRN Reason: ANXIETY Last Admin: 12/20/16 06:50 Dose: 0.5 mg Artificial Tears (Artificial Tears) 1 drop OU QID PRN PRN Reason: DRY EYES Aspirin (Asa -) 81 mg PO DAILY [facility] Last Admin: 12/20/16 09:04 Dose: 81 mg Atorvastatin Calcium (Lipitor -) 40 mg PO HS [facility] Last Admin: 12/19/16 21:13 Dose: 40 mg Budesonide/Formoterol Fumarate (Symbicort 160/4.5mcg -) 2 puff IH BID [facility] Last Admin: 12/20/16 09:06 Dose: 2 puff Clotrimazole (Mycelex Larry's -) 10 mg PO 5XD [facility] Last Admin: 12/20/16 09:06 Dose: 10 mg Docusate Sodium (Colace -) 100 mg PO BID [facility] Last Admin: 12/20/16 09:05 Dose: Not Given Enoxaparin Sodium (Lovenox -) 80 mg SQ BID [facility] Last Admin: 12/20/16 09:04 Dose: 80 mg Furosemide (Lasix -) 60 mg PO DAILY ONE Stop: 12/21/16 10:01 Insulin Aspart (Novolog Vial Sliding Scale -) 1 vial SQ [facility] PRN Reason: Protocol Last Admin: 12/20/16 06:18 Dose: Not Given Insulin Detemir (Levemir Vial) 10 units SQ BIDI [facility] Last Admin: 12/20/16 06:18 Dose: 10 units Levothyroxine Sodium (Synthroid -) 100 mcg PO DAILY@0700 [facility] Last Admin: 12/20/16 06:19 Dose: 100 mcg Mirtazapine (Remeron -) 15 mg PO [facility] Last Admin: 12/19/16 21:13 Dose: 15 mg Montelukast Sodium (Singulair -) 10 mg PO [facility] Last Admin: 12/19/16 21:13 Dose: 10 mg Nebivolol (Bystolic -) 5 mg PO DAILY [facility] Last Admin: 12/20/16 09:05 Dose: 5 mg Pt's Own Med: Prednisolone Opht Susp 1% 1 each OS QID [facility] Last Admin: 12/20/16 09:06 Dose: 1 each Pt's Own Med: Bromfenac Opht Kandace/0.09% 1 each OS DAILY [facility] Last Admin: 12/20/16 09:06 Dose: 1 each Pt's Own Med: Moxifloxacin Opht Kandace:0.5% 1 each OS QID [facility] Last Admin: 12/20/16 09:06 Dose: 1 each Nystatin (Nystop Powder -) 1 applic TP BID [facility] Last Admin: 12/20/16 09:06 Dose: 1 applic Ondansetron HCl (Zofran Injection) 4 mg IVPB Q6H PRN PRN Reason: NAUSEA Last Admin: 12/19/16 12:24 Dose: 4 mg Oxycodone HCl (Roxicodone -) 15 mg PO TID PRN PRN Reason: PAIN Last Admin: 12/20/16 09:03 Dose: 15 mg Pantoprazole Sodium (Protonix -) 40 mg PO DAILY [facility] Last Admin: 12/20/16 09:14 Dose: 40 mg Prednisone (Deltasone -) 60 mg PO DAILY [facility] Last Admin: 12/20/16 09:14 Dose: 60 mg Senna (Senna -) 1 tab PO BID [facility] Last Admin: 12/20/16 09:06 Dose: Not Given Gen: NAD in chair Heart: RRR Lung: scattered rhonchi, fixed inspiratory wheeze Abd: soft, nontender Ext: + edema Laboratory Results - last 24 hr 12/19/16 12/19/16 12/20/16 16:51 21:33 05:00 WBC 11.9 H RBC 4.28 Hgb 11.4 Hct 34.7 MCV 81.1 MCH 26.7 MCHC 33.0 RDW 17.2 H Plt Count 226 MPV 8.3 Neutrophils % 72.6 D Lymphocytes % 21.5 D Monocytes % 5.2 D Eosinophils % 0.5 D Basophils % 0.2 Sodium Potassium Chloride Carbon Dioxide Anion Gap BUN Creatinine Creat Clearance w eGFR POC Glucometer 180.31013 176.53133 Random Glucose Calcium Phosphorus Magnesium Total Bilirubin AST ALT Alkaline Phosphatase Total Protein Albumin 12/20/16 12/20/16 12/20/16 05:00 06:11 11:50 WBC RBC Hgb Hct MCV MCH MCHC RDW Plt Count MPV Neutrophils % Lymphocytes % Monocytes % Eosinophils % Basophils % Sodium 142 Potassium 4.8 Chloride 100 Carbon Dioxide 36 H Anion Gap 6 L BUN 31 H D Creatinine 1.1 H Creat Clearance w eGFR 49.85 POC Glucometer 83.01474 [phone] Random Glucose 61 L D Calcium 8.7 Phosphorus 4.1 Magnesium 2.0 Total Bilirubin 0.6 D AST 24 D ALT 32 Alkaline Phosphatase 91 Total Protein 5.7 L Albumin 2.7 L ASSESSMENT AND PLAN: Metastatic Cervical Ca with Lung Mets Acute COPD Exacerbation Acute NSTEMI Partial Small Bowel Obstruction HTN DM h/o DVT - prednisone taper - inhaled bronchodilators standing and PRN - O2 to keep Spo2 >90% - ASA - continue anticoagulation - glucose control while systemic steroids - monitor bowel function Dr Gibbons
--- NOTE | 2016-12-20 15:15 | PN ---
Teaching Attending Note Name of Resident: Patrice Bradford ATTENDING PHYSICIAN STATEMENT I saw and evaluated the patient. I reviewed the resident's note and discussed the case with the resident. I agree with the resident's findings and plan as documented. SUBJECTIVE: cont to SOB close to her base line . no cough . abd pain and legs pain at base line. she feels tired OBJECTIVE: NAD CV : RRR Lungs : minimal wheezing heard on exam. Ext: 2+ pitting edema slightly improved form yesterday A/P 66 y/o lady with multiple medical problems including HTN, DVT, IDDM, hypothyroidism, asthma, and endometrial cancer with lung mets who presented with Abd pain and SOB and was found to have asthma exacerbation , SBO , and NSTEMI. 1- NSTEMI : - cont ASA , and statin - change biastolic to cardizem due to her severe lung dz 2- PArtial SBO: resolved,. tolerated diet . - Cont senna and colace 3- Asthma/COPD exacerbation : improved - Cont prednisone 60 daily , today day 1 for few days before decreasing dose further as she is chronically on high dose - cont Nebs and inhalers - cont singular - PPI for GI px 4- Acute S , and D CHF : change to po lasix. 60 mg a day. at dc will place on her home dose of 40 monitor renal function 5- H/o endometrial cancer with mets. - Repeat CT of chest - d/w heme . f/u as out pt 6- HTN: cardizem. will confirm her home meds again, ? losartan 7- Hypothyroidism , cont synthroid, TFTs as outpt. 8- IDDM : cont Levemir and SSI Possible dc tomorrow . did 20 feet with PT . ? rehab
--- NOTE | 2016-12-20 17:27 | PN ---
Physical Exam: SUBJECTIVE: Patient seen and examined. No acute events overnight. Pt endorses persistent cough with productive blood- tinged sputum w/ chest pain upon coughing as well as nausea. She reports decreased appetite and SOB which are the same as yesterday. She reports that she had a BM yesterday. Spoke to pt about CESAR, and she is amenable. OBJECTIVE: Vital Signs Period Temp Pulse Resp BP Sys/Encarnacion Pulse Ox Last 24 Hr 98.0 F-99.8 F 78-104 15-22 94-154/43-107 96 GENERAL: elderly female sitting in bed eating breakfast in NAD HEAD: alvarado facies EYES: Pupils equal, round and reactive to light, extraocular movements intact, sclera anicteric, conjunctiva clear. No lid lag. EARS, NOSE, THROAT: Ears normal, nares patent, oropharynx clear without exudates. Moist mucous membranes. + hirsutism NECK: Normal range of motion, supple without lymphadenopathy, JVD, or masses. LUNGS: diffuse rhonchi, no wheezing HEART: tachycardic, normal S1 and S2 without murmur, rub or gallop. ABDOMEN: ND, abnormal masses, minimally tender, lower quadrant ecchymosis, no rebound tenderness, no guarding, + central adiposity UPPER EXTREMITIES: 2+ pulses, warm, well-perfused. No cyanosis. No clubbing. No peripheral edema. multiple ecchymoses LOWER EXTREMITIES: 2+ b/l LE pitting edema mildly improved from yesterday. right foot has amputations of 3rd, 4th, and 5th toes. longitudinal healed scar along medial left LE NEUROLOGICAL: Cranial nerves II-XII intact. language is normal SKIN: Warm, dry, normal turgor, no rashes or lesions noted, normal capillary refill. Laboratory Results - last 24 hr 12/19/16 12/19/16 12/20/16 16:51 21:33 05:00 WBC 11.9 H RBC 4.28 Hgb 11.4 Hct 34.7 MCV 81.1 MCH 26.7 MCHC 33.0 RDW 17.2 H Plt Count 226 MPV 8.3 Neutrophils % 72.6 D Lymphocytes % 21.5 D Monocytes % 5.2 D Eosinophils % 0.5 D Basophils % 0.2 Sodium Potassium Chloride Carbon Dioxide Anion Gap BUN Creatinine Creat Clearance w eGFR POC Glucometer 180.44522 176.41532 Random Glucose Calcium Phosphorus Magnesium Total Bilirubin AST ALT Alkaline Phosphatase Total Protein Albumin 12/20/16 12/20/16 12/20/16 05:00 06:11 11:50 WBC RBC Hgb Hct MCV MCH MCHC RDW Plt Count MPV Neutrophils % Lymphocytes % Monocytes % Eosinophils % Basophils % Sodium 142 Potassium 4.8 Chloride 100 Carbon Dioxide 36 H Anion Gap 6 L BUN 31 H D Creatinine 1.1 H Creat Clearance w eGFR 49.85 POC Glucometer 83.07792 218.92259 Random Glucose 61 L D Calcium 8.7 Phosphorus 4.1 Magnesium 2.0 Total Bilirubin 0.6 D AST 24 D ALT 32 Alkaline Phosphatase 91 Total Protein 5.7 L Albumin 2.7 L Active Medications Generic Name Dose Route Start Last Admin Trade Name Freq PRN Reason Stop Dose Admin Aclidinium [place] 1 puff 12/15/16 22:00 12/20/16 09:06 Tudorza - IH 1 puff BID RAFA Administration Albuterol Sulfate 1 amp 12/15/16 18:00 12/20/16 11:49 Ventolin 0.5% - NEB 1 amp QIDR RAFA Administration Alprazolam 0.5 mg 12/19/16 13:09 12/20/16 06:50 Xanax - PO 0.5 mg Q8H PRN Administration ANXIETY Artificial Tears 1 drop 12/15/16 12:53 Artificial Tears OU QID PRN DRY EYES Aspirin 81 mg 12/16/16 10:00 12/20/16 09:04 Asa - PO 81 mg DAILY RAFA Administration Atorvastatin Calcium 40 mg 12/17/16 22:00 12/19/16 21:13 Lipitor - PO 40 mg HS RAFA Administration Budesonide/Formoterol Fumarate 2 puff 12/15/16 22:00 12/20/16 09:06 Symbicort 160/4.5mcg - IH 2 puff BID RAFA Administration Clotrimazole 10 mg 12/17/16 14:00 12/20/16 17:17 Mycelex Larry's - PO 10 mg 5XD RAFA Administration Diltiazem HCl 120 mg 12/21/16 10:00 Cardizem Cd - PO DAILY RAFA Docusate Sodium 100 mg 12/20/16 10:00 12/20/16 09:05 Colace - PO Not Given BID RAFA Enoxaparin Sodium 80 mg 12/15/16 22:00 12/20/16 09:04 Lovenox - SQ 80 mg BID RAFA Administration Furosemide 60 mg 12/21/16 10:00 Lasix - PO 12/21/16 10:01 DAILY ONE Insulin Aspart 1 vial 12/17/16 16:30 12/20/16 12:00 Novolog Vial Sliding Scale - SQ 4 units ACHS RAFA Administration Protocol Insulin Detemir 10 units 12/15/16 12:48 12/20/16 06:18 Levemir Vial SQ 10 units BIDI RAFA Administration Levothyroxine Sodium 100 mcg 12/16/16 07:00 12/20/16 06:19 Synthroid - PO 100 mcg DAILY@0700 RAFA Administration Mirtazapine 15 mg 12/19/16 22:00 12/19/16 21:13 Remeron - PO 15 mg HS RAFA Administration Montelukast Sodium 10 mg 12/15/16 22:00 12/19/16 21:13 Singulair - PO 10 mg HS RAFA Administration Pt's Own Med: 1 each 12/15/16 22:00 12/20/16 09:06 Prednisolone Opht OS 1 each Susp 1% QID RAFA Administration Pt's Own Med: 1 each 12/16/16 10:00 12/20/16 09:06 Bromfenac Opht Kandace/ OS 1 each 0.09% DAILY RAFA Administration Pt's Own Med: 1 each 12/15/16 22:00 12/20/16 09:06 Moxifloxacin Opht OS 1 each Kandace:0.5% QID RAFA Administration Nystatin 1 applic 12/17/16 22:00 12/20/16 09:06 Nystop Powder - TP 1 applic BID RAFA Administration Ondansetron HCl 4 mg 12/15/16 14:40 12/19/16 12:24 Zofran Injection IVPB 4 mg Q6H PRN Administration NAUSEA Oxycodone HCl 15 mg 12/20/16 08:26 12/20/16 17:15 Roxicodone - PO 15 mg TID PRN Administration PAIN Pantoprazole Sodium 40 mg 12/20/16 10:00 12/20/16 09:14 Protonix - PO 40 mg DAILY RAFA Administration Prednisone 60 mg 12/20/16 10:00 12/20/16 09:14 Deltasone - PO 60 mg DAILY RAFA Administration Senna 1 tab 12/19/16 13:15 12/20/16 09:06 Senna - PO Not Given BID [facility] ASSESSMENT/PLAN: 66F w/ hx of endometrial cancer w/ mets to lungs on tamoxifen, asthma, COPD diastolic CHF, IDDM, DVT, HTN, HLD, hypothyroidism, presenting with abdominal pain, found to have NSTEMI, COPD exacerbation, and partial SBO on CT, improving. 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 Camargo on board, appreciated recs to continue diet as tolerated -had BM yesterday -continue senna and colace #SOB -2/2 lung mets and COPD exacerbation vs. chf exacerbation -2L O2 via NC, maintain O2 > 90 -continue singulair 10, symbicort BID, ventolin q6h PRN -continue prednisone taper of 60mg x 3 days, then 50mg x 3 days, then home dose of 40mg. Today is day 2 of PO prednisone 60mg qd. #tachycardia -HR 80-90s today -nebivolol 5mg PO qd discontinued per cardiology due to beta 2 adrenergic antagonist side effects w/ pt's COPD -cadizem CD 120mg qd started -monitor BP and HR #depression -psych on board, remeron started. #SARAH -creatinine of 1.1 today -2+ lower extremity edema -lasix 60 PO qd #uterine cancer -home tamoxifen 20 BID discontinued as per oncology -palliative care team consulted, pt has poor prognosis -Dr. Arreaga on board, appreciate recs -repeat CT chest ordered as per oncology, pt refused yesterday, f/u today. If it does not get done, can be performed as outpt #leukocytosis -likely due to prednisone -wbc count of 11.9 today -blood cx- no growth to date -urine cx- no growth #IDDM -20U levemir BID -SSI -resume home dose of 40U levemir BID once pt is started on diet #HLD -continue atorvastatin 40mg -LDL of 115 #Hypothyroid -continued home dose of levothyroxine 100mg #asthma -2L O2 via NC -continue singulair 10, symbicort BID, ventolin q6h PRN -continue PO prednisone 60mg qd #HTN -continue lasix 60mg PO qd -will start losartan 50mg qd nick if creatinine is ok #diastolic CHF -continue lasix 60mg PO qd -continue ASA 81 #advanced directives -spoke with pt about her advanced directives. Pt states that she hasn't discussed it with her yet but will now #FEN/ppx -no fluids -electrolytes wnl -fat/sodium controlled diet -pepcid -lovenox 80 #Dispo -pending how pt tolerates PO prednisone and lasix -walked 20 feet with PT today, will walk again nick. Pt amenable to CESAR. Patrice Bradford MD PGY1 Visit type - Emergency Visit Emergency Visit: Yes ED Registration Date: 12/15/16 Care time: The patient presented to the Emergency Department on the above date and was hospitalized for further evaluation of their emergent condition. - New Patient This patient is new to me today: No - Critical Care Critical Care patient: No
[2016-12-20 18:10] LABS: ANION GAP 11 (8-16); CALCIUM 8.2 mg/dL (8.5-10.1); CO2 28 mmol/L (21-32); CREATININE 1.1 mg/dL (0.55-1.02)
[2016-12-20 18:15] LABS: GLUCOSE,RANDOM 429 mg/dL (74-106)
[2016-12-20] MEDS ORDERED: INSULIN DETEMIR 100 UNITS/ML MDV SQ SCH (18:15)
--- NOTE | 2016-12-20 19:00 | PN ---
Physical Exam: 24H Events: SUBJECTIVE: Patient seen and examined in ICU. Continues to have some congestion , cough with blood-tinged sputum. Complains of more weakness and increased back pain this AM. Loose BM last night after Senna/Colace. OBJECTIVE: Vital Signs Period Temp Pulse Resp BP Sys/Encarnacion Pulse Ox Last 24 Hr 98.0 F-99.8 F 78-104 15-22 94-154/43-107 96 Intake & Output 12/17/16 12/18/16 12/19/16 12/20/16 23:59 23:59 23:59 23:59 Intake Total 1480 900 900 620 Output Total 3350 1001 1200 700 Balance -1870 -101 -300 -80 Weight 88.5 kg 88 kg 88 kg 87.1 kg GENERAL: Cushingoid, awake, alert, and fully oriented, sitting in chair LUNGS: scattered rhonchi and wheezes bilaterally HEART: RRR, normal S1/S2 without murmur, rub or gallop ABDOMEN: Soft, ntnd EXTREMITIES: b/l 2+ LE edema CBC, BMP 12/20/16 05:00 12/20/16 17:00 Microbiology 12/15/16 00:27 Blood - Peripheral Venous Blood Culture - Final NO GROWTH AFTER 5 DAYS INCUBATION 12/15/16 00:27 Blood - Peripheral Venous Blood Culture - Final NO GROWTH AFTER 5 DAYS INCUBATION 12/15/16 00:27 Urine - Urine - Catheterized Urine Culture - Final NO GROWTH OBTAINED Active Medications Aclidinium [place] (Tudorza -) 1 puff IH BID [facility] Last Admin: 12/20/16 09:06 Dose: 1 puff Albuterol Sulfate (Ventolin 0.5% -) 1 amp NEB QIDR [facility] Last Admin: 12/20/16 11:49 Dose: 1 amp Alprazolam (Xanax -) 0.5 mg PO Q8H PRN PRN Reason: ANXIETY Last Admin: 12/20/16 18:14 Dose: 0.5 mg Artificial Tears (Artificial Tears) 1 drop OU QID PRN PRN Reason: DRY EYES Aspirin (Asa -) 81 mg PO DAILY [facility] Last Admin: 12/20/16 09:04 Dose: 81 mg Atorvastatin Calcium (Lipitor -) 40 mg PO HS [facility] Last Admin: 12/19/16 21:13 Dose: 40 mg Budesonide/Formoterol Fumarate (Symbicort 160/4.5mcg -) 2 puff IH BID [facility] Last Admin: 12/20/16 09:06 Dose: 2 puff Clotrimazole (Mycelex Larry's -) 10 mg PO 5XD [facility] Last Admin: 12/20/16 18:15 Dose: 10 mg Diltiazem HCl (Cardizem Cd -) 120 mg PO DAILY [facility] Docusate Sodium (Colace -) 100 mg PO BID [facility] Last Admin: 12/20/16 09:05 Dose: Not Given Enoxaparin Sodium (Lovenox -) 80 mg SQ BID [facility] Last Admin: 12/20/16 09:04 Dose: 80 mg Furosemide (Lasix -) 60 mg PO DAILY ONE Stop: 12/21/16 10:01 Insulin Aspart (Novolog Vial Sliding Scale -) 1 vial SQ [facility] PRN Reason: Protocol Last Admin: 12/20/16 18:15 Dose: 14 units Insulin Detemir (Levemir Vial) 20 units SQ BID@07,22 [facility] Levothyroxine Sodium (Synthroid -) 100 mcg PO DAILY@0700 [facility] Last Admin: 12/20/16 06:19 Dose: 100 mcg Mirtazapine (Remeron -) 15 mg PO [facility] Last Admin: 12/19/16 21:13 Dose: 15 mg Montelukast Sodium (Singulair -) 10 mg PO [facility] Last Admin: 12/19/16 21:13 Dose: 10 mg Pt's Own Med: Prednisolone Opht Susp 1% 1 each OS QID [facility] Last Admin: 12/20/16 18:14 Dose: 1 each Pt's Own Med: Bromfenac Opht Kandace/0.09% 1 each OS DAILY [facility] Last Admin: 12/20/16 09:06 Dose: 1 each Pt's Own Med: Moxifloxacin Opht Kandace:0.5% 1 each OS QID [facility] Last Admin: 12/20/16 18:15 Dose: 1 each Nystatin (Nystop Powder -) 1 applic TP BID [facility] Last Admin: 12/20/16 09:06 Dose: 1 applic Ondansetron HCl (Zofran Injection) 4 mg IVPB Q6H PRN PRN Reason: NAUSEA Last Admin: 12/19/16 12:24 Dose: 4 mg Oxycodone HCl (Roxicodone -) 15 mg PO TID PRN PRN Reason: PAIN Last Admin: 12/20/16 17:15 Dose: 15 mg Pantoprazole Sodium (Protonix -) 40 mg PO DAILY [facility] Last Admin: 12/20/16 09:14 Dose: 40 mg Prednisone (Deltasone -) 60 mg PO DAILY [facility] Last Admin: 12/20/16 09:14 Dose: 60 mg Senna (Senna -) 1 tab PO BID [facility] Last Admin: 12/20/16 09:06 Dose: Not Given ASSESSMENT/PLAN: 66yo F with metastatic endometrial cancer with lung mets, NSTEMI (trop trended to peak, started on ASA & statin) and COPD exacerbation. TTE yesterday revealed borderline LV systolic function with anterior hypokinesia. Dr. Moise (cardiology) is following, and appreciate recommendations. Patient is stable, and is awaiting transfer to Telemetry. #NSTEMI -Cardiology following -Nebivolol 5mg PO Daily -ASA 81mg daily -Atorvastatin 40mg PO HS #Pulm -Continue bronchodilators standing and PRN -Oxygen therapy to maintain SpoO2 > 90% -Taper steroids -maintain SpO2 >90% #Renal -Continue Lasix IV 20mg daily #Oncology -morphine 15mg PO PRN q8 -continue home tamoxifen 20mg BID -Oncology (Dr. Arreaga) consulted, appreciate recommendations #GI - resolved SBO -Monitor bowel function -Zofran prn for nausea #Endocrine -10U levemir BID -BGM ACHS -Insulin sliding scale #FEN -IVF held -Monitory daily lytes -Diabetic/low fat diet #PPX -DVT ppx - lovenox 80mg BID -GI ppx - famotidine 20mg IVPB bid d/w Dr. Edwige Barksdale, PGY-1 Visit type - Emergency Visit Emergency Visit: No - New Patient This patient is new to me today: No - Critical Care Critical Care patient: Yes Total Critical Care Time (in minutes): 35 Critical Care Statement: The care of this patient involved high complexity decision making to prevent further life threatening deterioration of the patient 's condition and/or to evaluate & treat vital organ system(s) failure or risk of failure.
--- NOTE | 2016-12-20 21:36 | PN ---
Progress Note (short form) - Note Progress Note: PAtient seen and examined No specific complaints Last Vital Signs Temp Pulse Resp BP Pulse Ox 98.0 F 93 H 20 117/66 96 12/20/16 14:00 12/20/16 18:00 12/20/16 18:00 12/20/16 18:00 12/19/16 21:00 Cushingoid facies Cor: RSR, No murmurs, No gallops Lungs: decreased at bases Abd: Soft, Normal bowel sounds, No organomegaly Ext:No significant edema Abnormal Lab Results 12/20/16 12/20/16 12/20/16 05:00 05:00 17:00 WBC 11.9 H RDW 17.2 H Sodium 134 L Chloride 95 L Carbon Dioxide 36 H Anion Gap 6 L BUN 31 H D 31 H Creatinine 1.1 H 1.1 H Random Glucose 61 L D 429 H* D Calcium 8.2 L Total Protein 5.7 L Albumin 2.7 L Active Medications Generic Name Dose Route Start Last Admin Trade Name Freq PRN Reason Stop Dose Admin Aclidinium [place] 1 puff 12/15/16 22:00 12/20/16 22:34 Tudorza - IH 1 puff BID RAFA Administration Albuterol Sulfate 1 amp 12/15/16 18:00 12/20/16 23:06 Ventolin 0.5% - NEB Not Given QIDR RAFA Alprazolam 0.5 mg 12/19/16 13:09 12/20/16 18:14 Xanax - PO 0.5 mg Q8H PRN Administration ANXIETY Artificial Tears 1 drop 12/15/16 12:53 Artificial Tears OU QID PRN DRY EYES Aspirin 81 mg 12/16/16 10:00 12/20/16 09:04 Asa - PO 81 mg DAILY RAFA Administration Atorvastatin Calcium 40 mg 12/17/16 22:00 12/20/16 22:32 Lipitor - PO 40 mg HS RAFA Administration Budesonide/Formoterol Fumarate 2 puff 12/15/16 22:00 12/20/16 22:33 Symbicort 160/4.5mcg - IH 2 puff BID RAFA Administration Clotrimazole 10 mg 12/17/16 14:00 12/20/16 23:36 Mycelex Larry's - PO Not Given 5XD RAFA Diltiazem HCl 120 mg 12/21/16 10:00 Cardizem Cd - PO DAILY RAFA Docusate Sodium 100 mg 12/20/16 10:00 12/20/16 22:33 Colace - PO Not Given BID RAFA Enoxaparin Sodium 80 mg 12/15/16 22:00 12/20/16 22:31 Lovenox - SQ 80 mg BID RAFA Administration Furosemide 60 mg 12/21/16 10:00 Lasix - PO 12/21/16 10:01 DAILY ONE Insulin Aspart 1 vial 12/17/16 16:30 12/20/16 22:57 Novolog Vial Sliding Scale - SQ 4 units ACHS RAFA Administration Protocol Insulin Detemir 20 units 12/20/16 22:00 12/20/16 22:56 Levemir Vial SQ 20 units BID@ RAFA Administration Levothyroxine Sodium 100 mcg 12/16/16 07:00 12/20/16 06:19 Synthroid - PO 100 mcg DAILY@0700 RAFA Administration Mirtazapine 15 mg 12/19/16 22:00 12/20/16 22:32 Remeron - PO Not Given HS RAFA Montelukast Sodium 10 mg 12/15/16 22:00 12/20/16 22:31 Singulair - PO 10 mg HS RAFA Administration Pt's Own Med: 1 each 12/15/16 22:00 12/20/16 22:33 Prednisolone Opht OS 1 each Susp 1% QID RAFA Administration Pt's Own Med: 1 each 12/16/16 10:00 12/20/16 09:06 Bromfenac Opht Kandace/ OS 1 each 0.09% DAILY RAFA Administration Pt's Own Med: 1 each 12/15/16 22:00 12/20/16 22:33 Moxifloxacin Opht OS 1 each Kandace:0.5% QID RAFA Administration Nystatin 1 applic 12/17/16 22:00 12/20/16 22:33 Nystop Powder - TP 1 applic BID RAFA Administration Ondansetron HCl 4 mg 12/15/16 14:40 12/19/16 12:24 Zofran Injection IVPB 4 mg Q6H PRN Administration NAUSEA Oxycodone HCl 15 mg 12/20/16 08:26 12/20/16 22:32 Roxicodone - PO 15 mg TID PRN Administration PAIN Pantoprazole Sodium 40 mg 12/20/16 10:00 12/20/16 09:14 Protonix - PO 40 mg DAILY RAFA Administration Prednisone 60 mg 12/20/16 10:00 12/20/16 09:14 Deltasone - PO 60 mg DAILY RAFA Administration Senna 1 tab 12/19/16 13:15 12/20/16 22:31 Senna - PO Not Given BID RAFA A/P Metastatic Endometrial Ca to the Lungs with progression of disease NSTEMI acute COPD exacerbation s/p recent Eye surgery h/o DVT for consideration of palliative chemotherapy once acute issues resolved
[2016-12-20] MEDS: MONTELUKAST NA 10 MG TABLET PO SCH (22:31)
[2016-12-20] MEDS: MIRTAZAPINE 15 MG TABLET (FP) PO SCH (22:32)
[2016-12-20] MEDS: ATORVASTATIN CA 40 MG TABLET (FP) PO SCH (22:32)
[2016-12-21] MEDS ORDERED: PT OWN MED DRAWER 7, Y5N ONE ×2 (00:40→06:21)
[2016-12-21] MEDS: ALPRAZolam 0.25 MG TABLET PO PRN ×2 (02:49→14:36)
[2016-12-21 05:53] LABS: MCH 26.8 pg (25.7-33.7); MEAN CELL VOLUME 78.9 fl (80-96); PLATELET COUNT 219 K/MM3 (134-434); RDW 16.9 % (11.6-15.6); WHITE BLOOD COUNT 10.7 K/mm3 (4.0-10.0)
[2016-12-21] MEDS: INSULIN SLIDING SCALE (NOVOLOG) 1 VIAL SQ SCH ×2 (06:19→12:00)
[2016-12-21] MEDS: INSULIN DETEMIR 100 UNITS/ML MDV SQ SCH (06:19)
[2016-12-21 06:21] LABS: ANION GAP 8 (8-16); CO2 34 mmol/L (21-32); CREATININE 0.9 mg/dL (0.55-1.02); GLUCOSE,RANDOM 69 mg/dL (74-106)
[2016-12-21 06:23] LABS: CALCIUM 8.8 mg/dL (8.5-10.1)
[2016-12-21] MEDS: CLOTRIMAZOLE 10 MG TROCHE (FP) PO SCH ×3 (06:24→14:30)
[2016-12-21] MEDS: LEVOTHYROXINE NA 100 MCG TABLET (FP) PO SCH (06:25)
[2016-12-21] MEDS: oxyCODONE HCL 5 MG TABLET PO PRN ×2 (06:25→14:28)
[2016-12-21] MEDS: ALBUTEROL SO4 0.5 % INH SOLN 2.5 MG/0.5 ML VIAL.NEB. NEB SCH ×3 (06:30→17:05)
--- NOTE | 2016-12-21 09:30 | PN ---
Progress Note, Physician Chief Complaint: Patient seen in telemetry, currently awake and alert. Chart was reviewed Feels better today Heart rate better History of Present Illness: Patient was seen and examined. Chart was reviewed Denies chest pain or palpitations Shortness of breath improved today - Current Medication List Current Medications: Active Medications Aclidinium [place] (Tudorza -) 1 puff IH BID [facility] Last Admin: 12/20/16 22:34 Dose: 1 puff Albuterol Sulfate (Ventolin 0.5% -) 1 amp NEB QIDR [facility] Last Admin: 12/21/16 06:30 Dose: 1 amp Alprazolam (Xanax -) 0.5 mg PO Q8H PRN PRN Reason: ANXIETY Last Admin: 12/21/16 02:49 Dose: 0.5 mg Artificial Tears (Artificial Tears) 1 drop OU QID PRN PRN Reason: DRY EYES Aspirin (Asa -) 81 mg PO DAILY [facility] Last Admin: 12/20/16 09:04 Dose: 81 mg Atorvastatin Calcium (Lipitor -) 40 mg PO HS [facility] Last Admin: 12/20/16 22:32 Dose: 40 mg Budesonide/Formoterol Fumarate (Symbicort 160/4.5mcg -) 2 puff IH BID [facility] Last Admin: 12/20/16 22:33 Dose: 2 puff Clotrimazole (Mycelex Larry's -) 10 mg PO 5XD [facility] Last Admin: 12/21/16 06:24 Dose: 10 mg Diltiazem HCl (Cardizem Cd -) 120 mg PO DAILY [facility] Docusate Sodium (Colace -) 100 mg PO BID [facility] Last Admin: 12/20/16 22:33 Dose: Not Given Enoxaparin Sodium (Lovenox -) 80 mg SQ BID [facility] Last Admin: 12/20/16 22:31 Dose: 80 mg Furosemide (Lasix -) 60 mg PO DAILY [facility] Insulin Aspart (Novolog Vial Sliding Scale -) 1 vial SQ ACHS [facility] PRN Reason: Protocol Last Admin: 12/21/16 06:19 Dose: Not Given Insulin Detemir (Levemir Vial) 20 units SQ BID@07,22 [facility] Last Admin: 12/21/16 06:19 Dose: Not Given Levothyroxine Sodium (Synthroid -) 100 mcg PO DAILY@0700 [facility] Last Admin: 12/21/16 06:25 Dose: 100 mcg Losartan Potassium (Cozaar -) 50 mg PO DAILY [facility] Mirtazapine (Remeron -) [address] [facility] Last Admin: 12/20/16 22:32 Dose: Not Given Montelukast Sodium (Singulair -) 10 mg PO HS [facility] Last Admin: 12/20/16 22:31 Dose: 10 mg Pt's Own Med: Prednisolone Opht Susp 1% 1 each OS QID [facility] Last Admin: 12/20/16 22:33 Dose: 1 each Pt's Own Med: Bromfenac Opht Kandace/0.09% 1 each OS DAILY [facility] Last Admin: 12/20/16 09:06 Dose: 1 each Pt's Own Med: Moxifloxacin Opht Kandace:0.5% 1 each OS QID [facility] Last Admin: 12/20/16 22:33 Dose: 1 each Nystatin (Nystop Powder -) 1 applic TP BID [facility] Last Admin: 12/20/16 22:33 Dose: 1 applic Ondansetron HCl (Zofran Injection) 4 mg IVPB Q6H PRN PRN Reason: NAUSEA Last Admin: 12/19/16 12:24 Dose: 4 mg Oxycodone HCl (Roxicodone -) 15 mg PO TID PRN PRN Reason: PAIN Last Admin: 12/21/16 06:25 Dose: 15 mg Pantoprazole Sodium (Protonix -) 40 mg PO DAILY [facility] Last Admin: 12/20/16 09:14 Dose: 40 mg Prednisone (Deltasone -) 60 mg PO DAILY [facility] Last Admin: 12/20/16 09:14 Dose: 60 mg Senna (Senna -) 1 tab PO BID [facility] Last Admin: 12/20/16 22:31 Dose: Not Given - Objective Vital Signs: Vital Signs Temperature 98.4 F 12/21/16 06:00 Pulse Rate 81 12/21/16 06:00 Respiratory Rate 20 12/21/16 06:00 Blood Pressure 134/70 12/21/16 06:00 O2 Sat by Pulse Oximetry (%) 90 L 12/20/16 22:00 Neck: Yes: Supple Cardiovascular: Yes: Regular Rate and Rhythm, S1, S2 Respiratory: Yes: Diminished Gastrointestinal: Yes: Normal Bowel Sounds, Soft, Abdomen, Obese. No: Tenderness Edema: No Additional Findings/Remarks: - Review of Systems Constitutional: denies: Chills, Fever Cardiovascular: reports: Shortness of Breath denies: Chest Pain, Palpitations Respiratory: reports: SOB denies: Orthopnea, PND Gastrointestinal: denies: Abdominal Pain, Constipation, Diarrhea, Melena, Nausea , Rectal Bleeding, Vomiting Neurological: reports: Weakness. denies: Dizziness, Headache, Seizure, Syncope Labs: CBC, BMP 12/21/16 05:00 12/21/16 05:00 Problem List - Problems (1) Abdominal pain Code(s): R10.9 - UNSPECIFIED ABDOMINAL PAIN Qualifiers: Abdominal location: unspecified location Qualified Code(s): R10.9 - Unspecified abdominal pain (2) NSTEMI (non-ST elevated myocardial infarction) Code(s): I21.4 - NON-ST ELEVATION (NSTEMI) MYOCARDIAL INFARCTION (3) Cervical carcinoma Code(s): C53.9 - MALIGNANT NEOPLASM OF CERVIX UTERI, UNSPECIFIED (4) Diabetes Code(s): E11.9 - TYPE 2 DIABETES MELLITUS WITHOUT COMPLICATIONS Qualifiers: Diabetes mellitus type: type 2 Diabetes mellitus complication status: without complication (5) Endometrial cancer Code(s): C54.1 - MALIGNANT NEOPLASM OF ENDOMETRIUM (6) Hyperlipidemia Code(s): E78.5 - HYPERLIPIDEMIA, UNSPECIFIED Qualifiers: Hyperlipidemia type: unspecified Qualified Code(s): E78.5 - Hyperlipidemia, unspecified (7) Hypertension Code(s): I10 - ESSENTIAL (PRIMARY) HYPERTENSION Qualifiers: Hypertension type: essential hypertension Qualified Code(s): I10 - Essential (primary) hypertension (8) Hypothyroidism Code(s): E03.9 - HYPOTHYROIDISM, UNSPECIFIED Qualifiers: Hypothyroidism type: unspecified Qualified Code(s): E03.9 - Hypothyroidism, unspecified (9) Metastasis to lung Code(s): C78.00 - SECONDARY MALIGNANT NEOPLASM OF UNSPECIFIED LUNG (10) Obesity Code(s): E66.9 - OBESITY, UNSPECIFIED Assessment/Plan 1. Elevated troponin c/w NSTEMI, underlying CAD - trended down 2. 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 Hypertension 4. IDDM 5. Abdominal pain, etiology to be determined, probable impacted stool 6. COPD 7. RBBB 8. Sinus tachycardia PLAN: 1. Patient is on Cardizem CD 120 mg once a day which she appears to tolerate. Titrate accordingly 2. Currently on Lovenox 80 mg SQ BID - may be stopped 3. ASA as tolerated 4. Transthoracic echocardiography report as noted 5. In view of multiple co-morbidities, would treat conservatively and optimize cardiac therapy 6. Continue pulmonary management Further plans are to follow. Guarded. Possible discharge planning Noah Moise MD
[2016-12-21] MEDS: PANTOPRAZOLE 40 MG TABLET (FP) PO SCH (09:58)
[2016-12-21] MEDS: ENOXAPARIN NA (PORCINE) 80 MG/0.8 ML DISP.SYRIN SQ SCH (09:58)
[2016-12-21] MEDS: ASPIRIN 81 MG CHEWABLE TABLETS PO SCH (09:59)
[2016-12-21] MEDS: predniSONE 20 MG TABLET (UD) PO SCH (09:59)
[2016-12-21] MEDS: BUDESONIDE/FORMETEROL FUMARATE 160/4.5 mcg INHALER IH SCH (09:59)
[2016-12-21] MEDS: DOCUSATE SODIUM 100 MG CAPSULE (FP) PO SCH (10:00)
[2016-12-21] MEDS: ACLIDINIUM BROMIDE 400 MCG/INH AERO.POWD IH SCH (10:00)
[2016-12-21] MEDS: SENNOSIDES 8.6MG TABLET (FP) PO SCH (10:00)
[2016-12-21] MEDS ORDERED: LOSARTAN POTASSIUM 50 MG TABLET (FP) PO SCH (10:00)
[2016-12-21] MEDS ORDERED: FUROSEMIDE 20 MG TABLET (FP) PO SCH (10:00)
[2016-12-21] MEDS ORDERED: FUROSEMIDE 20 MG TABLET (FP) PO ONE (10:00)
[2016-12-21] MEDS: PREDNISOLONE 1% OS SCH ×2 (10:01→14:30)
[2016-12-21] MEDS: NYSTATIN POWDER 100,000 UNITS/GM - 15 GM TOPICAL POWDER TP SCH (10:01)
[2016-12-21] MEDS: MOXIFLOXACIN OS SCH ×2 (10:01→14:30)
[2016-12-21] MEDS: BROMFENAC OS SCH (10:01)
[2016-12-21] MEDS ORDERED: ALBUTEROL SO4 0.083% IH SOL 2.5 MG/3 ML VIAL.NEB. NEB ONE ×2 (10:45→17:01)
[2016-12-21 12:43] VITALS: TEMP 98
--- NOTE | 2016-12-21 15:16 | PN ---
Progress Note (short form) - Note Progress Note: Patient seen and examined in the ICU. No change in overall condition. No change in cough. No hemoptysis. OBJECTIVE: Intake & Output 12/18/16 12/19/16 12/20/16 12/21/16 23:59 23:59 23:59 23:59 Intake Total 519 191 3697 0 Output Total 1001 1200 700 Balance -101 -300 1060 0 Weight 194 lb 0.108 oz 194 lb 0.108 oz 192 lb 0.362 oz Last Vital Signs Temp Pulse Resp BP Pulse Ox 98 F 92 H 18 108/68 100 12/21/16 12:00 12/21/16 12:00 12/21/16 12:00 12/21/16 12:00 12/21/16 09:51 Active Medications Aclidinium [place] (Tudorza -) 1 puff IH BID [facility] Last Admin: 12/21/16 10:00 Dose: 1 puff Albuterol Sulfate (Ventolin 0.5% -) 1 amp NEB QIDR [facility] Last Admin: 12/21/16 11:06 Dose: 1 amp Alprazolam (Xanax -) 0.5 mg PO Q8H PRN PRN Reason: ANXIETY Last Admin: 12/21/16 14:36 Dose: 0.5 mg Artificial Tears (Artificial Tears) 1 drop OU QID PRN PRN Reason: DRY EYES Aspirin (Asa -) 81 mg PO DAILY [facility] Last Admin: 12/21/16 09:59 Dose: 81 mg Atorvastatin Calcium (Lipitor -) 40 mg PO HS [facility] Last Admin: 12/20/16 22:32 Dose: 40 mg Budesonide/Formoterol Fumarate (Symbicort 160/4.5mcg -) 2 puff IH BID [facility] Last Admin: 12/21/16 09:59 Dose: 2 puff Clotrimazole (Mycelex Larry's -) 10 mg PO 5XD [facility] Last Admin: 12/21/16 14:30 Dose: 10 mg Diltiazem HCl (Cardizem Cd -) 120 mg PO DAILY [facility] Last Admin: 12/21/16 09:59 Dose: 120 mg Docusate Sodium (Colace -) 100 mg PO BID [facility] Last Admin: 12/21/16 10:00 Dose: Not Given Enoxaparin Sodium (Lovenox -) 80 mg SQ BID [facility] Last Admin: 12/21/16 09:58 Dose: 80 mg Furosemide (Lasix -) 60 mg PO DAILY [facility] Last Admin: 12/21/16 09:59 Dose: 60 mg Insulin Aspart (Novolog Vial Sliding Scale -) 1 vial SQ ACHS [facility] PRN Reason: Protocol Last Admin: 12/21/16 12:00 Dose: Not Given Insulin Detemir (Levemir Vial) 20 units SQ BID@07,22 [facility] Last Admin: 12/21/16 06:19 Dose: Not Given Levothyroxine Sodium (Synthroid -) 100 mcg PO DAILY@0700 [facility] Last Admin: 12/21/16 06:25 Dose: 100 mcg Losartan Potassium (Cozaar -) 50 mg PO DAILY [facility] Last Admin: 12/21/16 09:58 Dose: 50 mg Mirtazapine (Remeron -) 15 mg PO [facility] Last Admin: 12/20/16 22:32 Dose: Not Given Montelukast Sodium (Singulair -) 10 mg PO [facility] Last Admin: 12/20/16 22:31 Dose: 10 mg Pt's Own Med: Prednisolone Opht Susp 1% 1 each OS QID [facility] Last Admin: 12/21/16 14:30 Dose: 1 each Pt's Own Med: Bromfenac Opht Kandace/0.09% 1 each OS DAILY [facility] Last Admin: 12/21/16 10:01 Dose: 1 each Pt's Own Med: Moxifloxacin Opht Kandace:0.5% 1 each OS QID [facility] Last Admin: 12/21/16 14:30 Dose: 1 each Nystatin (Nystop Powder -) 1 applic TP BID [facility] Last Admin: 12/21/16 10:01 Dose: 1 applic Ondansetron HCl (Zofran Injection) 4 mg IVPB Q6H PRN PRN Reason: NAUSEA Last Admin: 12/19/16 12:24 Dose: 4 mg Oxycodone HCl (Roxicodone -) 15 mg PO TID PRN PRN Reason: PAIN Last Admin: 12/21/16 14:28 Dose: 15 mg Pantoprazole Sodium (Protonix -) 40 mg PO DAILY [facility] Last Admin: 12/21/16 09:58 Dose: 40 mg Prednisone (Deltasone -) 60 mg PO DAILY [facility] Last Admin: 12/21/16 09:59 Dose: 60 mg Senna (Senna -) 1 tab PO BID [facility] Last Admin: 12/21/16 10:00 Dose: 1 tab Gen: NAD in chair Heart: RRR Lung: scattered rhonchi, fixed inspiratory wheeze Abd: soft, nontender Ext: + edema Laboratory Results - last 24 hr 12/20/16 12/20/16 12/20/16 05:00 17:00 22:54 WBC RBC Hgb Hct MCV MCH MCHC RDW Plt Count MPV Sodium 134 L Potassium 4.7 Chloride 95 L Carbon Dioxide 28 D Anion Gap 11 BUN 31 H Creatinine 1.1 H POC Glucometer [phone] Random Glucose 429 H* D Calcium 8.2 L Carcinoembryonic Ag 18.7 H CA 19-9 Antigen 136 H CA 125 Antigen 540.1 H 12/21/16 12/21/16 12/21/16 05:00 05:00 06:15 WBC 10.7 H RBC 4.01 Hgb 10.7 Hct 31.6 L MCV 78.9 L MCH 26.8 MCHC 34.0 RDW 16.9 H Plt Count 219 MPV 8.0 Sodium 140 Potassium 3.8 Chloride 98 Carbon Dioxide 34 H D Anion Gap 8 BUN 27 H Creatinine 0.9 POC Glucometer 63.60485 Random Glucose 69 L D Calcium 8.8 Carcinoembryonic Ag CA 19-9 Antigen CA 125 Antigen ASSESSMENT AND PLAN: Metastatic Cervical CA with Lung Mets Acute COPD Exacerbation Acute NSTEMI Partial Small Bowel Obstruction HTN DM h/o DVT - inhaled bronchodilators - O2 to keep Spo2 >90% - ASA - continue anticoagulation - glucose control while systemic steroids - Lasix - AC - D/C planning Symbicort 160/4.5 : 2 inhalations BID Tudorza BID Montelukast 10mg OD Cautious Prednsione taper due to long standing high dose steroid usage Dr Gibbons
--- NOTE | 2016-12-21 16:08 | PN ---
Teaching Attending Note Name of Resident: Patrice Bradford ATTENDING PHYSICIAN STATEMENT I saw and evaluated the patient. I reviewed the resident's note and discussed the case with the resident. I agree with the resident's findings and plan as documented. SUBJECTIVE: no SOB , no pain, no fever or chills. OBJECTIVE: NAD CV : RRR Lungs : minimal wheezing heard on exam. Ext: 1+ pitting edema slightly improved form yesterday A/P 66 y/o lady with multiple medical problems including HTN, DVT, IDDM, hypothyroidism, asthma, and endometrial cancer with lung mets who presented with Abd pain and SOB and was found to have asthma exacerbation , SBO , and NSTEMI. 1- NSTEMI : - cont ASA , and statin - cont cardizem 2- PArtial SBO: resolved,. tolerated diet . - Cont senna and colace 3- Asthma/COPD exacerbation : improved - Cont slow prednisone taper to her base line dose 20 BID - cont Nebs and inhalers 4- Acute S , and D CHF : much improved . cont 40 of lasix at dc 5- H/o endometrial cancer with mets. - need repeat CT scan as out pt as out pt - d/w heme, will continue her out pt regimen tamoxifen 80 BID x 21days alternating with megace 20 bid x 21 dys to repeat the cycle until she follows with oncologist 6- HTN: cardizem. resume losartan at 5 dialy only 7- Hypothyroidism , cont synthroid, TFTs as outpt. 8- IDDM : levemir 18 BID as outpt , with SSI Dc home with services. declined rehab. CM updated about need for home PT
[2016-12-21 17:29] VITALS: BP 123/75; PULSE 96
--- NOTE | 2016-12-21 18:54 | DS ---
Physical Exam: SUBJECTIVE: Patient seen and examined OBJECTIVE: Vital Signs Period Temp Pulse Resp BP Sys/Encarnacion Pulse Ox Last 24 Hr 98 F-98.4 F 81-96 18-20 108-136/65-75 90-100 PHYSICAL EXAM GENERAL: The patient is awake, alert, and fully oriented, in no acute distress. HEAD: Normal with no signs of trauma. EYES: PERRL, extraocular movements intact, sclera anicteric, conjunctiva clear. ENT: Ears normal, nares patent, oropharynx clear without exudates, moist mucous membranes. NECK: Trachea midline, full range of motion, supple. LUNGS: Breath sounds equal, clear to auscultation bilaterally, no wheezes, no crackles, no accessory muscle use. HEART: Regular rate and rhythm, S1, S2 without murmur, rub or gallop. ABDOMEN: Soft, nontender, nondistended, normoactive bowel sounds, no guarding, no rebound, no hepatosplenomegaly, no masses. EXTREMITIES: 2+ pulses, warm, well-perfused, no edema. NEUROLOGICAL: Cranial nerves II through XII grossly intact. Normal speech, gait not observed. PSYCH: Normal mood, normal affect. SKIN: Warm, dry, normal turgor, no rashes or lesions noted. LABS Laboratory Results - last 24 hr 12/20/16 12/20/16 12/21/16 05:00 22:54 05:00 WBC 10.7 H RBC 4.01 Hgb 10.7 Hct 31.6 L MCV 78.9 L MCH 26.8 MCHC 34.0 RDW 16.9 H Plt Count 219 MPV 8.0 Sodium Potassium Chloride Carbon Dioxide Anion Gap BUN Creatinine POC Glucometer 229.85152 Random Glucose Calcium Carcinoembryonic Ag 18.7 H CA 19-9 Antigen 136 H CA 125 Antigen 540.1 H 12/21/16 12/21/16 05:00 06:15 WBC RBC Hgb Hct MCV MCH MCHC RDW Plt Count MPV Sodium 140 Potassium 3.8 Chloride 98 Carbon Dioxide 34 H D Anion Gap 8 BUN 27 H Creatinine 0.9 POC Glucometer 63.39995 Random Glucose 69 L D Calcium 8.8 Carcinoembryonic Ag CA 19-9 Antigen CA 125 Antigen HOSPITAL COURSE: 66F w/ hx of endometrial cancer with mets to lungs, asthma, COPD, diastolic CHF , IDDM, DVT, HLD, and hypothyroidism who presented with LLQ abdominal pain, was found to have an NSTEMI, COPD vs. CHF exacerbation, and a partial SBO. She was consulted on by pulmonology, cardiology, oncology, palliative care, and psychiatry. Pt was placed on a clinical research monitor and given aspirin, lipitor, and therapeutic lovenox for the NSTEMI, and troponins trended down. For the COPD vs. CHF exacerbation, pt was given high doses of IV steroids, high doses of IV lasix and continued on other home meds. For the partial SBO, pt was monitored, placed on a bowel regimen, diet was advanced as tolerated, and she was found to have regular BMs. She had tachycardia, so she was switched to cardizem CD 120mg qd from [facility]. Losartan was decreased to 50mg qd because her BPs were on the low side. Today, pt reports no complaints, her vitals are stable, and she is ready for discharge. She is being placed on a steroid taper and instructed to follow up with her PCP, datastage consultant, and oncologist. Date of Admission:12/15/16 Date of Discharge: 12/21/16 Minutes to complete discharge: 45 Discharge Summary Reason For Visit: NON-ST ELEVATION (NSTEMI) MYOCARDIAL INFARCTION Current Active Problems Acute asthma exacerbation (Acute) COPD exacerbation (Acute) Systemic inflammatory response syndrome (SIRS) (Acute) Anxiety (Chronic) Asthma (Chronic) Chronic pain (Chronic) Chronic steroid use (Chronic) Diabetes (Chronic) Endometrial cancer (Chronic) History of DVT of lower extremity (Chronic) Hyperlipidemia (Chronic) Hypertension (Chronic) Hypothyroidism (Chronic) Metastasis to lung (Chronic) Metastatic disease (Chronic) Obesity (Chronic) Steroid dependence (Chronic) Uncontrolled diabetes mellitus (Chronic) Condition: Improved - Instructions Diet, Activity, Other Instructions: When you came to the hospital, you were found to have a mild heart attack ( NSTEMI), COPD Exacerbation, and a partial small bowel obstruction. You were monitored and treated for all three problems. Follow up with your PCP within one week. Follow up with your oncologist within two weeks. He might consider performing chemotherapy to help improve your symptoms. Follow up with a datastage consultant. If you don't already have one, we have referred you to Dr. Moise Please remember to bring your medications with you if you need to come back to the hospital again. Regarding your prednisone taper: Take 60mg for 1 day, then 50mg for 3 days, and then 20mg twice a day afterwards. Regarding your tamoxifen and megestrol: Take tamoxifen 20mg twice a day for 21 days. After that, take megestrol 80mg twice a day for 21 days. Then, repeat. Your medications were changed in the hospital, so please continue taking the ones outlined in your discharge papers. Referrals: Noah Moise MD [Staff Physician] - Key Jorge MD [Staff Physician] - STAFF,NOT ON [Primary Care Provider] - Disposition: HOME - Home Medications Comprehensive Discharge Medication List: Ambulatory Orders Albuterol Sulfate Inhaler - [Ventolin HFA Inhaler -] 2 inh PO Q6H 11/21/16 Clotrimazole [Mycelex -] 10 mg PO 5XD 11/21/16 Furosemide [Lasix] 40 mg PO DAILY 11/21/16 Levothyroxine [Synthroid -] 100 mcg PO DAILY 11/21/16 Megestrol Acetate 80 mg PO BID 11/21/16 Montelukast Na [Singulair -] 1 tab HS 11/21/16 Ondansetron HCl [Zofran] 4 mg PO BID 11/21/16 Ranitidine HCl [Zantac] 300 mg PO HS 11/21/16 Alprazolam [Xanax] 0.5 mg PO TID PRN 11/23/16 Acetaminophen [Tylenol .Regular Strength -] 650 mg PO Q6H PRN #0 tablet Albuterol Sulfate 0.5% [Ventolin 0.5% Nebulizing Soln. -] 1 amp NEB QIDR amp Aspirin [ASA -] 81 mg PO DAILY tab.chew 11/27/16 Budesonide/Formeterol Fumarate [SYMBICORT 160/4.5mcg -] 2 puff IH BID inhaler 11/27/16 Enoxaparin [Lovenox -] 120 mg SQ DAILY #30 dis.syr 11/27/16 Nystatin Powder 1 applic TP BID #0 bottle 11/27/16 Polyvinyl Alcohol [Artificial Tears] 1 drop OU QID PRN #1 bottle 11/27/16 Cholecalciferol (Vitamin D3) [Decara] 50,000 unit PO 12/20/16 Atorvastatin Ca [Lipitor] 40 mg PO HS #30 tablet 12/21/16 Clotrimazole [Mycelex -] 10 mg PO 5XD tab 12/21/16 Diltiazem Cd [Cardizem Cd -] 120 mg PO DAILY #30 cap 12/21/16 Docusate Sodium [Colace -] 100 mg PO BID PRN #60 cap 12/21/16 Furosemide [Lasix] 40 mg PO DAILY #30 tablet 12/21/16 Insulin Glargine,Hum.rec.anlog [Lantus Solostar PEN (NF)] 18 units SQ BID #1 pen 12/21/16 Insulin Sliding Scale [Novolog Vial Sliding Scale -] 0 units SQ ACHS #10 ml 11/29 Levothyroxine [Synthroid -] 100 mcg PO DAILY@0700 tablet 12/21/16 Losartan Potassium [Cozaar -] 50 mg PO DAILY #30 tablet 12/21/16 Nystatin Powder [Nystop Powder -] 1 applic TP BID applic 12/21/16 Prednisone [Deltasone] 20 mg PO DAILY #50 tablet 12/21/16 Sennosides [Senna -] 1 tab PO BID #60 tablet 12/21/16 Tamoxifen Citrate 20 mg PO BID #60 tablet 12/21/16 This patient is new to me today: No Emergency Visit: Yes ED Registration Date: 12/15/16 Care time: The patient presented to the Emergency Department on the above date and was hospitalized for further evaluation of their emergent condition. Critical Care patient: No - Discharge Referral Referred to [facility] No
== END 2016-12-21 17:33 | disposition home or self-care (01) | DRG 280 ==
LOC: JER 22:35 → JERBED 12-15 02:20 → JICU 12-15 16:56 → J2W 12-20 21:12
PROVIDERS: ADMIT Internal Medicine; ATTEND Internal Medicine
DX: I21.4 Non-ST elevation (NSTEMI) myocardial infarction (principal); I50.41 Acute combined systolic (congestive) and diastolic (congestive) heart failure; C78.02 Secondary malignant neoplasm of left lung; C78.01 Secondary malignant neoplasm of right lung; K56.60 Unspecified intestinal obstruction; N17.9 Acute kidney failure, unspecified; J44.1 Chronic obstructive pulmonary disease with (acute) exacerbation; C54.1 Malignant neoplasm of endometrium; E78.5 Hyperlipidemia, unspecified; E03.9 Hypothyroidism, unspecified; E11.65 Type 2 diabetes mellitus with hyperglycemia; Z68.38 Body mass index [BMI] 38.0-38.9, adult; Z79.4 Long term (current) use of insulin; R00.0 Tachycardia, unspecified; I45.10 Unspecified right bundle-branch block; F41.8 Other specified anxiety disorders; I11.0 Hypertensive heart disease with heart failure; D72.829 Elevated white blood cell count, unspecified; I25.119 Atherosclerotic heart disease of native coronary artery with unspecified angina pectoris; R10.32 Left lower quadrant pain; E66.9 Obesity, unspecified; Z86.718 Personal history of other venous thrombosis and embolism; K56.41 Fecal impaction
CPT/HCPCS: 36415; 71010-TC; 74020-TC; 74176-TC; 80048; 80053; 80061; 81003; 81015; 82272; 82378; 82553; 82803; 83605; 83721; 83735; 83880; 84100; 84484; 85025; 85027; 85610; 85730; 86301; 86304; 86850; 86900; 86901; 87040; 87086; 93005; 93010; 93306-TC; 94640; 97116-GP; 97161-GP; 99285-25; J1644